=== PATIENT | male | born 1965 | race American Indian/Alaskan Native ===

== ENCOUNTER 2017-02-02 12:11 | Inpatient (IN) | payer OTHER ==
[2017-02-02 12:22] VITALS: BMI 33.9
[2017-02-02] MEDS ORDERED: SODIUM CHLORIDE 1,000 ML IV STA (13:50)
--- NOTE | 2017-02-02 13:52 | PDOC ---
History of Present Illness - General Chief Complaint: Vomiting Blood Stated Complaint: VOMITING BLOOD Time Seen by Provider: 02/02/17 13:50 History Source: Patient - History of Present Illness Timing/Duration: reports: intermittent Past History - Past Medical History Allergies/Adverse Reactions: Allergies Allergy/AdvReac Type Severity Reaction Status Date / Time No Known Allergies Allergy Verified 02/02/17 12:23 Home Medications: Ambulatory Orders Folic Acid - 1 mg PO DAILY #0 tablet 12/19/12 Multivitamins [Multivit ([facility] Formulary)] 1 udtab PO DAILY #0 tab 12/19/12 Famotidine [Pepcid -] 40 mg PO DAILY 09/16/14 Tamsulosin HCl 0.4 mg PO DAILY 11/24/15 Amlodipine Besylate [Norvasc -] 10 mg PO DAILY #30 tablet 10/25/16 Carvedilol [Coreg -] 25 mg PO BID #60 tablet 10/25/16 Anemia: No Asthma: No Cancer: No Cardiac Disorders: Yes (afib, cardiac stent 2009) CVA: No COPD: No CHF: No Dementia: No Diabetes: Yes GI Disorders: No Disorders: No HTN: Yes Hypercholesterolemia: Yes Liver Disease: Yes Suicide Attempt (Hx): No Seizures: No Thyroid Disease: No - Surgical History Abdominal Surgery: No Appendectomy: No Cardiac Surgery: Yes (stent) Cholecystectomy: No Lung Surgery: No Neurologic Surgery: No Orthopedic Surgery: No - Psycho/Social/Smoking Cessation Hx Anxiety: No Suicidal Ideation: No Smoking Status: Yes Smoking History: Never smoked Have you smoked in the past 12 months: No Number of Cigarettes Smoked Daily: 0 If you are a former smoker, when did you quit?: 2004 Cigars Per Day: 0 Information on smoking cessation initiated: No Hx Alcohol Use: Yes (DAILY WHISKEY) Drug/Substance Use Hx: No Substance Use Type: None Hx Substance Use Treatment: No Review of Systems - Review of Systems Constitutional: No: Chills, Fever Respiratory: No: Shortness of Breath Cardiac (ROS): No: Chest Pain ABD/GI: Yes: Nausea, Vomiting, Abdominal cramping. No: Blood Streaked Bowels, Constipated, Diarrhea, Rectal Bleeding, Tarry Stools : No: Dysuria, Hematuria *Physical Exam - Vital Signs Last Vital Signs Temp Pulse Resp BP Pulse Ox 98 F 116 H 18 165/94 98 02/02/17 12:19 02/02/17 12:19 02/02/17 12:19 02/02/17 12:19 02/02/17 12:19 - Physical Exam General Appearance: Yes: Appropriately Dressed HEENT: positive: Normal Voice Neck: positive: Supple Respiratory/Chest: positive: Lungs Clear, Normal Breath Sounds. negative: Respiratory Distress Cardiovascular: positive: S1, S2, Tachycardia Gastrointestinal/Abdominal: positive: Normal Bowel Sounds, Tender (mild ttp diffusely), Soft. negative: Distended, Guarding, Rebound Extremity: positive: Normal Inspection Integumentary: positive: Dry, Warm Neurologic: positive: Fully Oriented, Alert, Other (+hand tremors) ED Treatment Course - LABORATORY CBC & Chemistry Diagram: 02/02/17 13:50 02/02/17 13:50 Medical Decision Making - Medical Decision Making 02/02/17 13:52 51 yo M, h/o ETOH abuse, ?alcoholic hepatitis, HTN, HLD, CAD, DM, here w/ hematemesis. Pt reports that since yesterday has had several e/o n/v, usually triggered after po intake, w/ "small amount" of bright red blood and at times "dark blood" in vomitus. Also reporting some vague abd pain. No change in BM, melena, hematochezia, f/c. Denies h/o similar episode. Not on blood thinners. Pt patient states he had an EGD last year which was unremarkable. See exam Hematemesis ?Varices Has elevated LFTs during last admission, likely due to ETOH abuse Tachy in ED Placed on monitor w/ labs and IVF in progress -GI c/s pending -anticipate admission Tachycardia Possibly 2/2 ETOH withdrawal, last drink yesterday -valium -IVF -reassess 02/02/17 16:21 Vitals improved but remain mildly tachy on monitor, rpt dose of valium in progress, Hypok repleted. H/H stable. LFTs worse than previous admission. Will contact hospitalist for admission. Will m/l need GI to scope to r/o varices or ulcers. Consult placed 02/02/17 17:07 Dr Leslie in ED, recommending protonix. Pt admitted *DC/Admit/Observation/Transfer Diagnosis at time of Disposition: Alcohol dependence with uncomplicated withdrawal Hematemesis Qualifiers: Nausea presence: with nausea Qualified Code(s): K92.0 - Hematemesis - Discharge Dispostion Condition at time of disposition: Fair Admit: Yes
[2017-02-02] MEDS ORDERED: diazePAM CARPU-JECT 10 MG/2 ML DISP.SYRIN IVPUSH ONE ×2 (14:01→15:53)
[2017-02-02] MEDS ORDERED: FOLIC ACID INJECTION - 1 MG, THIAMINE HCL 100 MG, MULTIVIT INJECTION ADULT 10 ML in SOD... IVPB ONE (14:02)
[2017-02-02 14:16] LABS: EOSINOPHIL 0.1 % (0-4.5); MCH 31.8 pg (25.7-33.7); MCHC 34.8 g/dl (32.0-35.9); MEAN CELL VOLUME 91.5 fl (80-96); MEAN PLT VOLUME 7.7 fl (7.5-11.1); NEUTROPHILS 71.8 % (42.8-82.8); PLATELET COUNT 148 K/MM3 (134-434); RDW 15.9 % (11.9-15.9); WHITE BLOOD COUNT 6.6 K/mm3 (4.0-10.0)
[2017-02-02] MEDS ORDERED: diazePAM CARPU-JECT 10 MG/2 ML DISP.SYRIN ONE ×2 (14:22→16:05)
[2017-02-02 14:33] LABS: INR 1.12 (0.82-1.09); PROTHROMBIN TIME (PATIENT) 12.3 SEC (9.98-11.88)
[2017-02-02 14:34] LABS: ALBUMIN 4.5 g/dl (3.4-5.0); ANION GAP 19 (8-16); BILIRUBIN,TOTAL 2.1 mg/dL (0.2-1.0); CALCIUM 9.4 mg/dL (8.5-10.1); CO2 27 mmol/L (21-32); GLUCOSE,RANDOM 239 mg/dL (74-106); SGPT/ALT 100 U/L (12-78); TOT PROT 8.9 g/dl (6.4-8.2)
[2017-02-02 14:35] LABS: ALK PHOS 83 U/L (45-117)
[2017-02-02 14:40] LABS: SGOT/AST 217 U/L (15-37)
[2017-02-02] MEDS ORDERED: POTASSIUM CHLORIDE TABS 20 MEQ TABLET.ER (FP) PO ONE ×2 (15:40→16:06)
--- NOTE | 2017-02-02 16:21 | PDOC ---
[id number] 195/101 98 02/02/17 14:00 02/02/17 14:00 02/02/17 14:00 02/02/17 14:00 02/02/17 14:00 ED Treatment Course - LABORATORY CBC & Chemistry Diagram: 02/05/17 05:35 02/05/17 18:30 - ADDITIONAL ORDERS Additional order review: Laboratory Results 02/02/17 02/02/17 02/02/17 13:50 13:50 13:50 INR 1.12 Sodium 135 L Potassium 3.0 L D Chloride 89 L D Carbon Dioxide 27 Anion Gap 19 H BUN 10 D Creatinine 1.0 Creat Clearance w eGFR > 60 Random Glucose 239 H D Calcium 9.4 Total Bilirubin 2.1 H D AST 217 H D ALT 100 H Alkaline Phosphatase 83 D Total Protein 8.9 H Albumin 4.5 Blood Type Cancelled Antibody Screen Cancelled Spec Expiration Date Cancelled 02/02/17 13:50 RBC 5.26 D MCV 91.5 MCHC 34.8 RDW 15.9 MPV 7.7 Neutrophils % 71.8 D Lymphocytes % 19.0 D Monocytes % 8.1 Eosinophils % 0.1 D Basophils % 1.0 - Medications Given in the ED: ED Medications Discontinued Medications Generic Name Dose Route Start Last Admin Trade Name Freq PRN Reason Stop Dose Admin Diazepam 10 mg 02/02/17 14:01 02/02/17 14:28 Valium Injection - IVPUSH 02/02/17 14:02 10 mg ONCE ONE Administration Diazepam 10 mg 02/02/17 15:53 02/02/17 16:14 Valium Injection - IVPUSH 02/02/17 15:54 10 mg ONCE ONE Administration Sodium Chloride 1,000 mls @ 1,000 mls/hr 02/02/17 13:50 02/02/17 14:10 Normal Saline - IV 02/02/17 14:49 1,000 mls/hr ASDIR STA Administration Potassium Chloride 40 meq 02/02/17 15:40 02/02/17 16:12 K-Dur - PO 02/02/17 15:41 40 meq ONCE ONE Administration Medical Decision Making - Medical Decision Making 02/02/17 16:18 Patient seen and evaluated with the nurse practitioner. I agree with the overall evaluation, assessment, and management with the following summary of visit: 51-year-old male with history of alcoholism presents with hematemesis, tachycardia, tremors. Admitted with stable hemoglobin, but early withdrawal *DC/Admit/Observation/Transfer Diagnosis at time of Disposition: Alcohol dependence with uncomplicated withdrawal Hematemesis Qualifiers: Nausea presence: with nausea Qualified Code(s): K92.0 - Hematemesis - Discharge Dispostion Disposition: HOME Condition at time of disposition: Stable - Prescriptions
[2017-02-02] MEDS ORDERED: PANTOPRAZOLE SODIUM 40 MG in SODIUM CHLORIDE 100 ML IVPB ONE (17:07)
[2017-02-02] MEDS ORDERED: PANTOPRAZOLE SODIUM 100 ML IVPB ONE (17:30)
[2017-02-02] MEDS ORDERED: ONDANSETRON 4 MG/2 ML VIAL IVPB PRN (18:53)
[2017-02-02] MEDS ORDERED: ACETAMINOPHEN 325 MG TABLET (FP) PO PRN (18:55)
[2017-02-02] MEDS ORDERED: SODIUM CHLORIDE 1,000 ML IV SCH ×2 (19:00→19:30)
--- NOTE | 2017-02-02 19:18 | HP ---
CHIEF COMPLAINT: "im nauseous" PCP: Dr Urias HISTORY OF PRESENT ILLNESS: This is a 51 yo M with PMH of EtOh abuse, hematemesis and melena 1 yr ago, CAD s /p stents 7 yrs ago (not on a/c), HTN (coreg sometimes), HLD, IDDM ( noncomplliant), who presents with EtOH withdrawal and hematemesis. patient has been drinking for 1 mo straight 2 8 0z glasses of hard liquor per day. he has not eaten anything in the past week. He has been vomiting for the past 2 days, last episode of vomiting 12 hr ago with some hematemesis and last drink 12 hr ago. He has had a similar episode 1 mo ago with melena, at which time he was hospitalized on librium and with BEVERLY due to dehydration. He is noncompliant with insulin and other home meds. He has a colonoscopy and endoscopy [address] Ahn. He states he has a baseline sob and dry cough that has not worsened. The longest he has ever been sober was x 1 mo and he has been drinking heavily for 20 yrs. He is not interested in rehab. He denies ever having a seizure of hallucinations. He used to smoke heavily for 20 yrs but quit 13 yrs ago. He reports mild RUQ abd pain. He has been constipated for 1 week. He denies chest pain, sob, h/a or loc. he is anxious, diaphoretic and nauseous. 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 Smoking: past Alcohol: abuse Drugs: denies Family History: HTN, DM Allergies No Known Allergies Allergy (Verified 02/02/17 12:23) HOME MEDICATIONS: Home Medications Medication Instructions Recorded Folic Acid - 1 mg PO DAILY #0 tablet 12/19/12 Multivitamins [Multivit ([facility] 1 udtab PO DAILY #0 tab 12/19/12 Formulary)] Famotidine [Pepcid -] 40 mg PO DAILY 09/16/14 Tamsulosin HCl 0.4 mg PO DAILY 11/24/15 Amlodipine Besylate [Norvasc -] 10 mg PO DAILY #30 tablet 10/25/16 Carvedilol [Coreg -] 25 mg PO BID #60 tablet 10/25/16 REVIEW OF SYSTEMS CONSTITUTIONAL: Absent: fever, chills, weight change HEENT: Absent: rhinorrhea, nasal congestion, throat pain, CARDIOVASCULAR: Absent: chest pain, syncope, palpitations RESPIRATORY: Absent: orthopnea, wheezing, stridor GASTROINTESTINAL: Absent: diarrhea, melena, hematochezia GENITOURINARY: Absent: dysuria MUSCULOSKELETAL: Absent: myalgia, arthralgia SKIN: Absent: rash, itching, pallor HEMATOLOGIC/IMMUNOLOGIC: Absent: easy bleeding, easy bruising ENDOCRINE: Absent: unexplained weight gain, unexplained weight loss NEUROLOGIC: Absent: headache, focal weakness or paresthesias, PSYCHIATRIC: Absent: anxiety, depression, suicidal or homicidal ideation, hallucinations. PHYSICAL EXAMINATION Vital Signs - 24 hr 02/02/17 02/02/17 02/02/17 12:19 14:00 16:48 Temperature 98 F 98.6 F 99.6 F Pulse Rate 116 H Pulse Rate [ 115 H 111 H Radial] Respiratory 18 21 18 Rate Blood Pressure 165/94 Blood Pressure 195/101 175/106 [Left Arm] O2 Sat by Pulse 98 98 98 Oximetry (%) GENERAL: Awake, alert, and fully oriented, uncomfortable HEAD: Normal with no signs of trauma. EYES: Pupils equal, round and reactive to light, extraocular movements intact, sclera anicteric, conjunctiva clear. No lid lag. EARS, NOSE, THROAT: Moist mucous membranes. NECK: supple without JVD LUNGS: Breath sounds equal, clear to auscultation bilaterally HEART: tachy rate and regular rhythm, normal S1 and S2 ABDOMEN: soft, mildy distended + hepatomegaly, + bowel sounds, mildly tender RUQ. MARVIN: no lesions, light brown soft stool, normal prostate MUSCULOSKELETAL: No CVA tenderness. UPPER EXTREMITIES: 2+ pulses, warm, well-perfused. No peripheral edema. LOWER EXTREMITIES: 2+ pulses, warm, well-perfused. No calf tenderness. No peripheral edema. NEUROLOGICAL: Cranial nerves II-XII grossly intact. slurred speech PSYCHIATRIC: Cooperative. Good eye contact. Appropriate mood and affect. SKIN: Warm, dry Laboratory Results - last 24 hr 02/02/17 02/02/17 02/02/17 13:50 13:50 13:50 WBC 6.6 RBC 5.26 D Hgb 16.7 D Hct 48.1 D MCV 91.5 MCHC 34.8 RDW 15.9 Plt Count 148 D MPV 7.7 Neutrophils % 71.8 D Lymphocytes % 19.0 D Monocytes % 8.1 Eosinophils % 0.1 D Basophils % 1.0 INR 1.12 Sodium 135 L Potassium 3.0 L D Chloride 89 L D Carbon Dioxide 27 Anion Gap 19 H BUN 10 D Creatinine 1.0 Creat Clearance w eGFR > 60 Random Glucose 239 H D Calcium 9.4 Total Bilirubin 2.1 H D AST 217 H D ALT 100 H Alkaline Phosphatase 83 D Total Protein 8.9 H Albumin 4.5 Blood Type Antibody Screen Spec Expiration Date 02/02/17 13:50 WBC RBC Hgb Hct MCV MCHC RDW Plt Count MPV Neutrophils % Lymphocytes % Monocytes % Eosinophils % Basophils % INR Sodium Potassium Chloride Carbon Dioxide Anion Gap BUN Creatinine Creat Clearance w eGFR Random Glucose Calcium Total Bilirubin AST ALT Alkaline Phosphatase Total Protein Albumin Blood Type Cancelled Antibody Screen Cancelled Spec Expiration Date Cancelled ASSESSMENT/PLAN: Acute EtOh withdrawal -uninterested in rehab -CIWA protocol with IV Valium -Thiamina, folate -multivitamin -zofran prn Hematemesis -[place] vs gastritis -PPI drip -NPO -stool occult blood -Gi consult for scope IDDM -BGM TIDAC -Novolog sliding scale -a1c HTN -iv hydralazine 10 q 6 h [place] HLD -lipid panel prerenal azotemia -IVF @ 100 FeN NS@100 replete hypokalemia, hyponatremia, hypochloremia NPO SCD, PPI Dispo: admit med romie Problem List - Problem (1) Alcohol dependence with uncomplicated withdrawal Code(s): F10.230 - ALCOHOL DEPENDENCE WITH WITHDRAWAL, UNCOMPLICATED (2) Hematemesis Code(s): K92.0 - HEMATEMESIS Qualifiers: Nausea presence: with nausea Qualified Code(s): K92.0 - Hematemesis (3) Alcohol abuse Code(s): F10.10 - ALCOHOL ABUSE, UNCOMPLICATED (4) CAD (coronary artery disease) Code(s): I25.10 - ATHSCL HEART DISEASE OF [place] CORONARY ARTERY W/O ANG PCTRS Qualifiers: Coronary Disease-Associated Artery/Lesion type: [place] artery [place] vs. transplanted heart: [place] heart Associated angina: without angina Qualified Code(s): I25.10 - Atherosclerotic heart disease of [place] coronary artery without angina pectoris (5) Chronic alcoholism Code(s): F10.20 - ALCOHOL DEPENDENCE, UNCOMPLICATED Qualifiers: Substance use status: with intoxication Complication of substance- induced condition: uncomplicated Qualified Code(s): F10.220 - Alcohol dependence with intoxication, uncomplicated (6) HTN (hypertension) Code(s): I10 - ESSENTIAL (PRIMARY) HYPERTENSION (7) Vomiting Code(s): R11.10 - VOMITING, UNSPECIFIED Qualifiers: Nausea presence: with nausea (8) Hematochezia Code(s): K92.1 - [place] (9) Diabetes Code(s): E11.9 - TYPE 2 DIABETES MELLITUS WITHOUT COMPLICATIONS (10) Hyperlipidemia Code(s): E78.5 - HYPERLIPIDEMIA, UNSPECIFIED Visit type - Emergency Visit Emergency Visit: Yes Care time: The patient presented to the Emergency Department on the above date and was hospitalized for further evaluation of their emergent condition. - New Patient This patient is new to me today: Yes Date on this admission: 02/02/17 - Critical Care Critical Care patient: No
--- NOTE | 2017-02-02 19:37 | PN ---
Teaching Attending Note Name of Resident: Cece Urena ATTENDING PHYSICIAN STATEMENT I saw and evaluated the patient. I reviewed the resident's note and discussed the case with the resident. I agree with the resident's findings and plan as documented. SUBJECTIVE: OBJECTIVE: Vital Signs Period Temp Pulse Resp BP Sys/Mccoy Pulse Ox Last 24 Hr 98 F-99.6 F 111-116 18-21 165-195/94-106 98-98 HEART: S1 S2, tachycardic LUNGS: Clear ABDOMEN: Obese, soft, non-tender, non-distended, normal BS EXTREMITIES: No edema NEUROLOGICAL: Alert, oriented, mildly tremulous ASSESSMENT AND PLAN:
[2017-02-02] MEDS ORDERED: hydrALAZINE HCL 20 MG/ML VIAL ONE (20:20)
[2017-02-02] MEDS ORDERED: PANTOPRAZOLE SODIUM 40 MG VIAL ONE (20:20)
[2017-02-02] MEDS: PANTOPRAZOLE SODIUM 80 MG in SODIUM CHLORIDE 100 ML IVPB SCH (20:46)
[2017-02-02] MEDS: hydrALAZINE HCL 20 MG/ML VIAL IVPUSH SCH (20:46)
--- NOTE | 2017-02-02 21:25 | PDOC ---
*Physical Exam - Vital Signs Last Vital Signs Temp Pulse Resp BP Pulse Ox 99.6 F 120 H 18 190/119 100 02/02/17 16:48 02/02/17 20:47 02/02/17 20:47 02/02/17 20:47 02/02/17 20:47 ED Treatment Course - LABORATORY CBC & Chemistry Diagram: 02/02/17 13:50 02/02/17 13:50 - ADDITIONAL ORDERS Additional order review: Laboratory Results 02/02/17 02/02/17 02/02/17 13:50 13:50 13:50 INR 1.12 Sodium 135 L Potassium 3.0 L D Chloride 89 L D Carbon Dioxide 27 Anion Gap 19 H BUN 10 D Creatinine 1.0 Creat Clearance w eGFR > 60 Random Glucose 239 H D Calcium 9.4 Total Bilirubin 2.1 H D AST 217 H D ALT 100 H Alkaline Phosphatase 83 D Total Protein 8.9 H Albumin 4.5 Blood Type Cancelled Antibody Screen Cancelled Spec Expiration Date Cancelled 02/02/17 13:50 RBC 5.26 D MCV 91.5 MCHC 34.8 RDW 15.9 MPV 7.7 Neutrophils % 71.8 D Lymphocytes % 19.0 D Monocytes % 8.1 Eosinophils % 0.1 D Basophils % 1.0 - Medications Given in the ED: ED Medications Discontinued Medications Generic Name Dose Route Start Last Admin Trade Name Janel PRN Reason Stop Dose Admin Diazepam 10 mg 02/02/17 14:01 02/02/17 14:28 Valium Injection - IVPUSH 02/02/17 14:02 10 mg ONCE ONE Administration Diazepam 10 mg 02/02/17 15:53 02/02/17 16:14 Valium Injection - IVPUSH 02/02/17 15:54 10 mg ONCE ONE Administration Sodium Chloride 1,000 mls @ 1,000 mls/hr 02/02/17 13:50 02/02/17 14:10 Normal Saline - IV 02/02/17 14:49 1,000 mls/hr ASDIR STA Administration Pantoprazole Sodium 40 mg/ 100 mls @ 200 mls/hr 02/02/17 17:07 02/02/17 17:35 Sodium Chloride IVPB 02/02/17 17:36 200 mls/hr ONCE ONE Administration Sodium Chloride 1,000 mls @ 100 mls/hr 02/02/17 19:00 02/02/17 20:47 Normal Saline - IV Not Given ASDIR SIERRA Potassium Chloride 40 meq 02/02/17 15:40 02/02/17 16:12 K-Dur - PO 02/02/17 15:41 40 meq ONCE ONE Administration *DC/Admit/Observation/Transfer Diagnosis at time of Disposition: Alcohol dependence with uncomplicated withdrawal Hematemesis Qualifiers: Nausea presence: with nausea Qualified Code(s): K92.0 - Hematemesis - Discharge Dispostion Condition at time of disposition: Fair Admit: Yes
[2017-02-02] MEDS: diazePAM CARPU-JECT 10 MG/2 ML DISP.SYRIN IVPUSH SCH (21:30)
[2017-02-02] MEDS: INSULIN SLIDING SCALE (NOVOLOG) 1 VIAL SQ SCH (22:04)
[2017-02-02 23:21] LABS: TROPONIN I < 0.02 ng/ml (0.00-0.05)
[2017-02-03] MEDS: diazePAM CARPU-JECT 10 MG/2 ML DISP.SYRIN IVPUSH SCH ×3 (00:21→08:34)
[2017-02-03] MEDS: hydrALAZINE HCL 20 MG/ML VIAL IVPUSH SCH ×2 (03:06→08:11)
[2017-02-03] MEDS ORDERED: diazePAM CARPU-JECT 10 MG/2 ML DISP.SYRIN IVPUSH SCH (04:00)
[2017-02-03] MEDS: PANTOPRAZOLE SODIUM 80 MG in SODIUM CHLORIDE 100 ML IVPB SCH ×2 (05:52→16:56)
[2017-02-03] MEDS: INSULIN SLIDING SCALE (NOVOLOG) 1 VIAL SQ SCH ×3 (06:00→16:56)
[2017-02-03 06:14] LABS: MCH 31.9 pg (25.7-33.7); MCHC 34.8 g/dl (32.0-35.9); MEAN CELL VOLUME 91.6 fl (80-96); MEAN PLT VOLUME 7.6 fl (7.5-11.1); PLATELET COUNT 116 K/MM3 (134-434); RDW 15.7 % (11.9-15.9); WHITE BLOOD COUNT 6.2 K/mm3 (4.0-10.0)
[2017-02-03 06:36] LABS: ALBUMIN 3.6 g/dl (3.4-5.0); AMYLASE 73 U/L (25-115); ANION GAP 15 (8-16); CALCIUM 8.3 mg/dL (8.5-10.1); CO2 28 mmol/L (21-32); CREATININE 0.8 mg/dL (0.7-1.3); GLUCOSE,RANDOM 134 mg/dL (74-106); SGOT/AST 153 U/L (15-37); SGPT/ALT 80 U/L (12-78)
[2017-02-03 06:39] LABS: INR 1.2 (0.82-1.09); PROTHROMBIN TIME (PATIENT) 13.3 SEC (9.98-11.88)
[2017-02-03 06:42] LABS: ALK PHOS 66 U/L (45-117); BILIRUBIN,TOTAL 1.9 mg/dL (0.2-1.0); TOT PROT 7.1 g/dl (6.4-8.2)
[2017-02-03 06:52] LABS: PHOSPHOROUS 0.6 mg/dL (2.5-4.9)
[2017-02-03 07:59] LABS: CHOLESTEROL 314 mg/dL (50-200); LDL CHOLESTEROL (ONLY SJRH) 213 mg/dL (5-100)
[2017-02-03] MEDS ORDERED: POTASSIUM PHOSPHATE 15 MM in SODIUM CHLORIDE 250 ML IVPB ONE ×2 (08:30→15:00)
[2017-02-03] MEDS ORDERED: chlordiazePOXIDE HCL 25 MG CAPSULE PO PRN (09:34)
--- NOTE | 2017-02-03 09:47 | PN ---
Progress Note (short form) - Note Progress Note: Subjective: has no abd pain , no hematemesis since Thursday . has no SOB or CP . he is interested in detox Objective: Vital Signs: Last Vital Signs Temp Pulse Resp BP Pulse Ox 98.8 F 108 H 20 143/98 96 02/03/17 05:58 02/03/17 05:58 02/03/17 05:58 02/03/17 05:58 02/03/17 00:23 Physical Exam: NAD , AAOX3 HEENT: NC, AT, no facial droop , no nystagmus , MMM Lungs : CTAB ext : no edema , no tremor on hands Abd ; soft, NT< ND , NL BS , no Hepatomegaly gait : steady . Labs: Laboratory Results - last 24 hr 02/02/17 02/02/17 02/02/17 13:50 13:50 13:50 WBC 6.6 RBC 5.26 D Hgb 16.7 D Hct 48.1 D MCV 91.5 MCHC 34.8 RDW 15.9 Plt Count 148 D MPV 7.7 Neutrophils % 71.8 D Lymphocytes % 19.0 D Monocytes % 8.1 Eosinophils % 0.1 D Basophils % 1.0 INR 1.12 Sodium 135 L Potassium 3.0 L D Chloride 89 L D Carbon Dioxide 27 Anion Gap 19 H BUN 10 D Creatinine 1.0 Creat Clearance w eGFR > 60 POC Glucometer Random Glucose 239 H D Hemoglobin A1c % Calcium 9.4 Phosphorus Total Bilirubin 2.1 H D AST 217 H D ALT 100 H Alkaline Phosphatase 83 D Creatine Kinase Creatine Kinase Index CK-MB (CK-2) CK-MB (CK-2) Rel Index Troponin I Total Protein 8.9 H Albumin 4.5 Triglycerides Cholesterol Total LDL Cholesterol HDL Cholesterol Total Amylase Stool Occult Blood Blood Type Antibody Screen Spec Expiration Date 02/02/17 02/02/17 02/02/17 13:50 20:10 21:40 WBC RBC Hgb Hct MCV MCHC RDW Plt Count MPV Neutrophils % Lymphocytes % Monocytes % Eosinophils % Basophils % INR Sodium Potassium Chloride Carbon Dioxide Anion Gap BUN Creatinine Creat Clearance w eGFR POC Glucometer Random Glucose Hemoglobin A1c % Calcium Phosphorus Total Bilirubin AST ALT Alkaline Phosphatase Creatine Kinase 200 D Creatine Kinase Index Y CK-MB (CK-2) < 1.000 CK-MB (CK-2) Rel Index Troponin I < 0.02 Total Protein Albumin Triglycerides Cholesterol Total LDL Cholesterol HDL Cholesterol Total Amylase Stool Occult Blood Negative Blood Type Cancelled Antibody Screen Cancelled Spec Expiration Date Cancelled 02/02/17 02/03/17 02/03/17 21:40 05:44 05:44 WBC 6.2 RBC 4.76 Hgb 15.2 Hct 43.5 MCV 91.6 MCHC 34.8 RDW 15.7 Plt Count 116 L D MPV 7.6 Neutrophils % Lymphocytes % Monocytes % Eosinophils % Basophils % INR 1.20 H Sodium Potassium Chloride Carbon Dioxide Anion Gap BUN Creatinine Creat Clearance w eGFR POC Glucometer Random Glucose Hemoglobin A1c % Calcium Phosphorus Total Bilirubin AST ALT Alkaline Phosphatase Creatine Kinase Creatine Kinase Index CK-MB (CK-2) CK-MB (CK-2) Rel Index Cancelled Troponin I Total Protein Albumin Triglycerides Cholesterol Total LDL Cholesterol HDL Cholesterol Total Amylase Stool Occult Blood Blood Type Antibody Screen Spec Expiration Date 02/03/17 02/03/17 02/03/17 05:44 05:44 05:44 WBC RBC Hgb Hct MCV MCHC RDW Plt Count MPV Neutrophils % Lymphocytes % Monocytes % Eosinophils % Basophils % INR Sodium 143 Potassium 2.8 L* Chloride 100 D Carbon Dioxide 28 Anion Gap 15 BUN 4 L D Creatinine 0.8 Creat Clearance w eGFR > 60 POC Glucometer Random Glucose 134 H D Hemoglobin A1c % 6.3 H Calcium 8.3 L Phosphorus 0.6 L* Total Bilirubin 1.9 H AST 153 H D ALT 80 H Alkaline Phosphatase 66 D Creatine Kinase Creatine Kinase Index CK-MB (CK-2) CK-MB (CK-2) Rel Index Troponin I Total Protein 7.1 D Albumin 3.6 Triglycerides 97 Cancelled Cholesterol 314 H Cancelled Total LDL Cholesterol 213 H Cancelled HDL Cholesterol 71 H Cancelled Total Amylase 73 Stool Occult Blood Blood Type Antibody Screen Spec Expiration Date 02/03/17 05:51 WBC RBC Hgb Hct MCV MCHC RDW Plt Count MPV Neutrophils % Lymphocytes % Monocytes % Eosinophils % Basophils % INR Sodium Potassium Chloride Carbon Dioxide Anion Gap BUN Creatinine Creat Clearance w eGFR POC Glucometer 130 Random Glucose Hemoglobin A1c % Calcium Phosphorus Total Bilirubin AST ALT Alkaline Phosphatase Creatine Kinase Creatine Kinase Index CK-MB (CK-2) CK-MB (CK-2) Rel Index Troponin I Total Protein Albumin Triglycerides Cholesterol Total LDL Cholesterol HDL Cholesterol Total Amylase Stool Occult Blood Blood Type Antibody Screen Spec Expiration Date Assessment/Plan: 51 y/o man with h/o ETOH abuse , HTN, CAD s/p stenting , Diabetes, who presented intoxicated and with hematemesis 1- ETOH intoxication: possible withdrawal. No signs of Wernicke's encephalopathy . - he is interested in detox. will start Librium protocol - cont thiamine , add folic acid - IVF 2- Upper GI bleed . likely for gastritis VS Delma Lou tear in setting of vomiting HB is stable and bleed has not recurred since Thursday - start full liquid diet - monitor H&H . - declined rectal exam for me .but in ER OB was neg - cont PPI gtt , might change to IV pPI in AM if no more bleed - had colonoscopy and EGD 1 yr ago, no report in our system . - GI consult placed 3-h/o HTN: expect it to be elevated with withdrawal - dc IV hydralazine - resume home meds. 4- DM : he takes Lantus 8-10 units at home ., none for a week SSI while on liquids 5- hypokalemia and hypophosphatemia : replete and repeat 6- Transaminitis : due to alcoholic hepatitis . - will check PT to calculate discriminant function - repeat in am 7- hyperlipidemia . LDL > goal . can't give statins now due to transaminitis 8- dispo : HLOC Home meds need to be confirmed and updated please Visit type - Emergency Visit Emergency Visit: Yes ED Registration Date: 02/02/17 Care time: The patient presented to the Emergency Department on the above date and was hospitalized for further evaluation of their emergent condition. - New Patient This patient is new to me today: No - Critical Care Critical Care patient: No
[2017-02-03] MEDS: MULTIVIT INJ. ADULT COMBO WITH VIT K 1 COMBO 10 ML VIAL IV SCH (10:00)
[2017-02-03] MEDS: chlordiazePOXIDE HCL 25 MG CAPSULE PO SCH ×3 (11:11→23:06)
[2017-02-03] MEDS: amLODIPine BESYLATE 10 MG TABLET (FP) PO SCH (11:12)
[2017-02-03] MEDS: CARVEDILOL 25 MG TABLET (FP) PO SCH ×2 (11:12→23:06)
[2017-02-03] MEDS: FOLIC ACID 1 MG TABLET (FP) PO SCH (11:12)
[2017-02-03] MEDS: THIAMINE HCL 200 MG/2 ML VIAL IVPB SCH (11:12)
[2017-02-03 11:55] LABS: MAGNESIUM 1.4 mg/dL (1.8-2.4)
[2017-02-03 12:03] LABS: PHOSPHOROUS 0.7 mg/dL (2.5-4.9)
[2017-02-03 12:16] LABS: INR 1.23 (0.82-1.09); PROTHROMBIN TIME (PATIENT) 13.6 SEC (9.98-11.88)
--- NOTE | 2017-02-03 12:36 | EKG ---
Test Reason : Blood Pressure : / mmHG Vent. 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
[2017-02-03] MEDS ORDERED: MAGNESIUM SULF 50% (8.12 MEQ/2 ML-1 GM VIAL) IVPB ONE (13:59)
--- NOTE | 2017-02-03 14:17 | CON.GI ---
Consult Consult Specialty:: Gastroenterology Referred by:: JUAN CARLOS Quinteros Reason for Consultation:: Hematemesis - History of Present Illness Chief Complaint: Hematemesis on 02/01 x multiple episodes History of Present Illness: 51M with h/o alcoholism has been drinking about a pint of Scotch daily fro the past month. He has not eaten in about 1 week but continued to drink alcohol until this vomiting began on 02/01. He vomited coffee grounds and bright red blood on multiple occasions until about 1AM on 02/02. No bleeding since then. NO BMs today. Stools was black yesterday. No BM today. He underwent EGD and colonoscopy in the office with Dr Martinez about a years ago and tells me that there were no findings. I asked whether he wanted for Dr Martinez to consult but given the winter weather he asks that I remain and care for him. He admits to getting tremulous when he abstains from alcohol. His PMD is Dr. Urias. 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 No: CVA Cardio/Vascular: Yes: CAD (2 stents placed [facility] 2013), HTN, Hyperlipdemia. No: AFIB, CHF Gastrointestinal: Yes: GERD Hepatobiliary: Yes: Other (Alcoholic liver disease) Renal/: Yes: Renal Inusuff, BPH Psych: Yes: Addictions (ALCOHOL) Endocrine: Yes: Diabetes Mellitus - Alcohol/Substance Use Hx Alcohol Use: Yes (pint of Scotch daily) - Smoking History Smoking history: Former smoker Have you smoked in the past 12 months: No Aproximately how many cigarettes per day: 0 If you are a former smoker, when did you quit?: 2004 - Social History Usual Living Arrangement: Other () ADL: Independent Occupation: [employer] of : Other ([place]) Came to [place] (year[place] age 18 History of Recent Travel: No Home Medications - Allergies Allergies/Adverse Reactions: Allergies Allergy/AdvReac Type Severity Reaction Status Date / Time No Known Allergies Allergy Verified 02/02/17 12:23 - Home Medications Home Medications: Ambulatory Orders Folic Acid - 1 mg PO DAILY #0 tablet 12/19/12 Multivitamins [Multivit ([facility] Formulary)] 1 udtab PO DAILY #0 tab 12/19/12 Famotidine [Pepcid -] 40 mg PO DAILY 09/16/14 Tamsulosin HCl 0.4 mg PO DAILY 11/24/15 Amlodipine Besylate [Norvasc -] 10 mg PO DAILY #30 tablet 10/25/16 Carvedilol [Coreg -] 25 mg PO BID #60 tablet 10/25/16 Family Disease History - Family Disease History Family Disease History: Heart Disease: Father ( [place] age 88), Other: Mother ( young of allergic reaction) Review of Systems - Review of Systems Constitutional: reports: Loss of Appetite, Weakness Eyes: reports: No Symptoms HENT: reports: No Symptoms Neck: reports: No Symptoms Cardiovascular: reports: No Symptoms Respiratory: reports: No Symptoms Gastrointestinal: reports: Vomiting Blood Genitourinary: reports: No Symptoms Neurological: reports: No Symptoms Endocrine: reports: No Symptoms Psychiatric: reports: Anxiety Physical Exam-GI Vital Signs: Vital Signs Temperature 98.8 F 02/03/17 05:58 Pulse Rate 108 H 02/03/17 05:58 Respiratory Rate 20 02/03/17 05:58 Blood Pressure 143/98 02/03/17 05:58 O2 Sat by Pulse Oximetry (%) 96 02/03/17 00:23 CBC,CMP WBC 6.2 K/mm3 (4.0-10.0) 02/03/17 05:44 RBC 4.76 M/mm3 (4.00-5.60) 02/03/17 05:44 Hgb 15.2 GM/dL (11.7-16.9) 02/03/17 05:44 Hct 43.5 % (35.4-49) 02/03/17 05:44 MCV 91.6 fl (80-96) 02/03/17 05:44 MCHC 34.8 g/dl (32.0-35.9) 02/03/17 05:44 RDW 15.7 % (11.9-15.9) 02/03/17 05:44 Plt Count 116 K/MM3 (134-434) L D 02/03/17 05:44 MPV 7.6 fl (7.5-11.1) 02/03/17 05:44 Neutrophils % 71.8 % (42.8-82.8) D 02/02/17 13:50 Lymphocytes % 19.0 % (8-40) D 02/02/17 13:50 Monocytes % 8.1 % (3.8-10.2) 02/02/17 13:50 Eosinophils % 0.1 % (0-4.5) D 02/02/17 13:50 Basophils % 1.0 % (0-2.0) 02/02/17 13:50 Sodium 143 mmol/L (136-145) 02/03/17 05:44 Potassium 2.8 mmol/L (3.5-5.1) L* 02/03/17 05:44 Chloride 100 mmol/L (98-107) D 02/03/17 05:44 Carbon Dioxide 28 mmol/L (21-32) 02/03/17 05:44 Anion Gap 15 (8-16) 02/03/17 05:44 BUN 4 mg/dL (7-18) L D 02/03/17 05:44 Creatinine 0.8 mg/dL (0.7-1.3) 02/03/17 05:44 Creat Clearance w eGFR > 60 (>60) 02/03/17 05:44 POC Glucometer 188 UNITS (()) 02/03/17 11:39 Random Glucose 134 mg/dL (74-106) H D 02/03/17 05:44 Hemoglobin A1c % 6.3 % (4.8-6.0) H 02/03/17 05:44 Calcium 8.3 mg/dL (8.5-10.1) L 02/03/17 05:44 Phosphorus 0.7 mg/dL (2.5-4.9) L* 02/03/17 10:25 Magnesium 1.4 mg/dL (1.8-2.4) L 02/03/17 10:25 Total Bilirubin 1.9 mg/dL (0.2-1.0) H 02/03/17 05:44 AST 153 U/L (15-37) H D 02/03/17 05:44 ALT 80 U/L (12-78) H 02/03/17 05:44 Alkaline Phosphatase 66 U/L (45-117) D 02/03/17 05:44 Creatine Kinase 200 IU/L (39-308) D 02/02/17 21:40 Creatine Kinase Index Y 02/02/17 21:40 CK-MB (CK-2) < 1.000 ng/ml (0.5-3.6) 02/02/17 21:40 CK-MB (CK-2) Rel Index Cancelled 02/02/17 21:40 Troponin I < 0.02 ng/ml (0.00-0.05) 02/02/17 21:40 Total Protein 7.1 g/dl (6.4-8.2) D 02/03/17 05:44 Albumin 3.6 g/dl (3.4-5.0) 02/03/17 05:44 Triglycerides 97 mg/dL (35-160) 02/03/17 05:44 Cholesterol 314 mg/dL (50-200) H 02/03/17 05:44 Total LDL Cholesterol 213 mg/dL (5-100) H 02/03/17 05:44 HDL Cholesterol 71 mg/dL (40-60) H 02/03/17 05:44 Total Amylase 73 U/L (25-115) 02/03/17 05:44 Current Medications Generic Name Dose Route Start Last Admin Trade Name Freq PRN Reason Stop Dose Admin Acetaminophen 650 mg 02/02/17 18:55 Tylenol - PO Q4H PRN FEVER OR PAIN Amlodipine Besylate 10 mg 02/03/17 10:00 02/03/17 11:12 Norvasc - PO 10 mg DAILY [facility] Administration Carvedilol 25 mg 02/03/17 10:00 02/03/17 11:12 Coreg - PO 25 mg BID [facility]RA Administration Chlordiazepoxide HCl 25 mg 02/03/17 09:34 Librium - PO 02/06/17 09:33 Q4H PRN WITHDRAWAL(CONT SUBST) Chlordiazepoxide HCl 50 mg 02/03/17 11:00 02/03/17 11:11 Librium - PO 02/04/17 05:01 50 mg [id number] [facility] Administration Chlordiazepoxide HCl 25 mg 02/04/17 11:00 Librium - PO 02/05/17 05:01 [id number] SI[facility] Chlordiazepoxide HCl 15 mg 02/05/17 11:00 Librium - PO 02/06/17 05:01 [id number] SIER[facility] Folic Acid 1 mg 02/03/17 10:00 02/03/17 11:12 Folic Acid - PO 1 mg DAILY [facility] Administration Pantoprazole Sodium 80 mg/ 100 mls @ 10 mls/hr 02/02/17 19:00 02/03/17 05:52 Sodium Chloride IVPB 10 mls/hr Q10H [facility]ER[facility] Administration 8 MG/HR Sodium Chloride 1,000 mls @ 100 mls/hr 02/02/17 19:30 02/02/17 20:46 Normal Saline - IV 100 mls/hr ASDIR [facility] Administration Potassium Phosphate 15 mm/ 255 mls @ 51 mls/hr 02/03/17 15:00 Sodium Chloride IVPB 02/03/17 19:59 ONCE ONE Insulin Aspart 1 vial 02/02/17 19:00 02/03/17 11:41 Novolog Vial Sliding Scale - SQ Not Given TIDAC [facility] Protocol Magnesium Oxide 400 mg 02/04/17 10:00 Mag-Ox - PO DAILY [facility] Multivitamins/Minerals 10 ml 02/03/17 10:00 Infuvite Adult - IV DAILY [facility] Ondansetron HCl 4 mg 02/02/17 18:53 02/03/17 00:21 Zofran Injection IVPB 4 mg Q4H PRN Administration NAUSEA Thiamine HCl 200 mg 02/03/17 10:00 02/03/17 11:12 Vitamin B1 Injection - IVPB 200 mg DAILY [facility] Administration Constitutional: Yes: Anxious Eyes: Yes: Conjunctiva Clear HENT: Yes: Normocephalic Neck: Yes: Supple Cardiovascular: Yes: Regular Rate and Rhythm Respiratory: Yes: CTA Bilaterally ...Auscultate: Yes: Normoactive Bowel Sounds ...Palpate: Yes: Soft, Other (nontender) ...Rectal Exam: Yes: Guaiac Positive, Other (2+ prostate) Edema: No Peripheral Pulses WNL: Yes Neurological: Yes: Alert, Oriented Psychiatric: Yes: Alert Labs: CBC, BMP 02/03/17 05:44 02/03/17 05:44 INR, PTT INR 1.23 (0.82-1.09) H 02/03/17 10:25 Problem List - Problems (1) Alcoholic hepatitis Code(s): K70.10 - ALCOHOLIC HEPATITIS WITHOUT ASCITES (2) Benign prostatic hyperplasia Code(s): N40.0 - BENIGN PROSTATIC HYPERPLASIA WITHOUT LOWER URINRY TRACT SYMP Assessment/Plan Suspect erosive alcoholic gastritis causing hematemesis and cessation of eating. Given that the bleeding appears self-limited I doubt a variceal bleeding but have included rubber band ligation of varices in his informed consent. If bleeding resumes will start Octreotide. I have advised EGD and informed Eric of the potential for such complications as perforation and hemorrhage. l have scheduled it for tomorrow. Agree with PPI drip and Librium detoxification. I have strongly advised Eric to absolutely abstain from alcohol. If EGD is unrevealing a repeat colonoscopy will need to be considered.
[2017-02-03 18:35] LABS: MCH 31.4 pg (25.7-33.7); MCHC 34.5 g/dl (32.0-35.9); MEAN CELL VOLUME 91.3 fl (80-96); MEAN PLT VOLUME 7.8 fl (7.5-11.1); PLATELET COUNT 114 K/MM3 (134-434); RDW 15.5 % (11.9-15.9); WHITE BLOOD COUNT 5.7 K/mm3 (4.0-10.0)
[2017-02-03 19:09] LABS: MAGNESIUM 1.9 mg/dL (1.8-2.4); PHOSPHOROUS 1.3 mg/dL (2.5-4.9)
[2017-02-03] MEDS ORDERED: NAPH,MB-DB/K PH,MBDB POWDER PACKET PO ONE ×2 (19:26→23:15)
[2017-02-03] MEDS: SODIUM CHLORIDE 1,000 ML IV SCH ×2 (23:00→23:13)
[2017-02-04] MEDS ORDERED: diazePAM CARPU-JECT 10 MG/2 ML DISP.SYRIN IVPUSH SCH (02:00)
[2017-02-04] MEDS: PANTOPRAZOLE SODIUM 80 MG in SODIUM CHLORIDE 100 ML IVPB SCH (02:00)
[2017-02-04] MEDS: KCL 10 MEQ IVPB 100 ML IVPB SCH ×5 (06:15→20:45)
[2017-02-04] MEDS: INSULIN SLIDING SCALE (NOVOLOG) 1 VIAL SQ SCH ×3 (06:20→16:48)
[2017-02-04] MEDS: chlordiazePOXIDE HCL 25 MG CAPSULE PO SCH ×4 (06:20→22:48)
[2017-02-04 07:28] LABS: BASOPHIL 1.1 % (0-2.0); EOSINOPHIL 1.4 % (0-4.5); MCH 31.7 pg (25.7-33.7); MCHC 34.6 g/dl (32.0-35.9); MEAN CELL VOLUME 91.6 fl (80-96); MEAN PLT VOLUME 7.9 fl (7.5-11.1); NEUTROPHILS 56.2 % (42.8-82.8); PLATELET COUNT 103 K/MM3 (134-434); RDW 15.7 % (11.9-15.9); WHITE BLOOD COUNT 5.3 K/mm3 (4.0-10.0)
[2017-02-04 07:48] LABS: ALBUMIN 3.6 g/dl (3.4-5.0); BILIRUBIN,DIRECT 0.9 mg/dL (0.0-0.2); BILIRUBIN,TOTAL 2.1 mg/dL (0.2-1.0); TOT PROT 6.7 g/dl (6.4-8.2)
[2017-02-04 08:17] LABS: C-REACTIVE PROTEIN 1.9 MG/DL (0.00-0.3)
[2017-02-04 08:18] LABS: CALCIUM 8.4 mg/dL (8.5-10.1); CREATININE 0.7 mg/dL (0.7-1.3); MAGNESIUM 1.6 mg/dL (1.8-2.4); PHOSPHOROUS 2.4 mg/dL (2.5-4.9)
[2017-02-04 08:20] LABS: FERRITIN 527.816 ng/ml (16.4-293.9)
[2017-02-04] MEDS: TAMSULOSIN HCL 0.4 MG CAP.ER.24H (FP) PO SCH (09:04)
[2017-02-04] MEDS: amLODIPine BESYLATE 10 MG TABLET (FP) PO SCH (09:04)
[2017-02-04] MEDS: CARVEDILOL 25 MG TABLET (FP) PO SCH ×2 (09:04→22:47)
[2017-02-04] MEDS: THIAMINE HCL 200 MG/2 ML VIAL IVPB SCH (09:07)
[2017-02-04] MEDS: FOLIC ACID 1 MG TABLET (FP) PO SCH (09:10)
[2017-02-04] MEDS: MAGNESIUM OXIDE 400 MG TABLET (FP) PO SCH (09:13)
[2017-02-04] MEDS: MULTIVIT INJ. ADULT COMBO WITH VIT K 1 COMBO 10 ML VIAL IV SCH (09:20)
[2017-02-04] MEDS ORDERED: PROPOFOL 60 ML ONE (09:49)
--- NOTE | 2017-02-04 10:36 | PN ---
Progress Note (short form) - Note Progress Note: GI Procedure Note: Please see scanned EGD report. Severe reflux esophagitis but no varices were seen. Alcoholic gastroduodenitis was noted as well as portal gastropathy. No bleeding. Patient informed of findings and again advised to absolutely refrain from alcohol an to take PPI until EGD is repeated to exclude Yang's as an outpatient with either us or Dr Martinez. Problem List - Problems (1) Alcoholic hepatitis Code(s): K70.10 - ALCOHOLIC HEPATITIS WITHOUT ASCITES (2) Benign prostatic hyperplasia Code(s): N40.0 - BENIGN PROSTATIC HYPERPLASIA WITHOUT LOWER URINRY TRACT SYMP
[2017-02-04] MEDS: MAG HYDROX/AL HYDROX/SIMETH 30 ML UNIT-DOSE CUP PO SCH ×3 (11:49→22:47)
--- NOTE | 2017-02-04 12:55 | PN ---
Physical Exam: SUBJECTIVE: Patient seen and examined Patient resting in bed nad. No acute events. afebrile and hemodynamically stable. No further hematemesis. no melena. states he feels better. less tremors , mild anxiety and moderate diaphoreisis. no SZ or hallucinations. + BM (no melena or hematochezia). States he is concerned about a severe chronic cough productive of white flem x 8 mo. States he is uninterested in rehab despise being urged to quit drinking. no nausea. denies chest pain, sob, abd pain, n/v, diarrhea, constipation, dysuria. EGD today OBJECTIVE: Vital Signs Period Temp Pulse Resp BP Sys/Mccoy Pulse Ox Last 24 Hr 97.2 F-99.1 F 80-98 18-20 101-157/62-91 95-99 GENERAL: Awake, alert, and fully oriented, uncomfortable HEAD: Normal with no signs of trauma. EYES: Pupils equal, round and reactive to light, extraocular movements intact, sclera anicteric, conjunctiva clear. No lid lag. EARS, NOSE, THROAT: Moist mucous membranes. NECK: supple without JVD LUNGS: Breath sounds equal, clear to auscultation bilaterally HEART: regular rate and regular rhythm, normal S1 and S2 ABDOMEN: soft, mildy distended + hepatomegaly, + bowel sounds, mildly tender RUQ. MARVIN: no lesions, light brown soft stool, normal prostate MUSCULOSKELETAL: No CVA tenderness. UPPER EXTREMITIES: 2+ pulses, warm, well-perfused. No peripheral edema. LOWER EXTREMITIES: 2+ pulses, warm, well-perfused. No calf tenderness. No peripheral edema. NEUROLOGICAL: Cranial nerves II-XII grossly intact. normal speech PSYCHIATRIC: Cooperative. Good eye contact. Appropriate mood and affect. SKIN: Warm, dry Laboratory Results - last 24 hr 02/03/17 02/03/17 02/03/17 15:35 18:20 18:20 WBC 5.7 RBC 4.57 Hgb 14.4 Hct 41.7 MCV 91.3 MCHC 34.5 RDW 15.5 Plt Count 114 L MPV 7.8 Neutrophils % Lymphocytes % Monocytes % Eosinophils % Basophils % Sodium Potassium 2.9 L* Chloride Carbon Dioxide Anion Gap BUN Creatinine POC Glucometer 202 Random Glucose Calcium Phosphorus 1.3 L D Magnesium 1.9 D Ferritin Total Bilirubin Direct Bilirubin AST ALT Alkaline Phosphatase C-Reactive Protein Total Protein Albumin 02/04/17 02/04/17 02/04/17 00:35 05:35 05:35 WBC RBC Hgb Hct MCV MCHC RDW Plt Count MPV Neutrophils % Lymphocytes % Monocytes % Eosinophils % Basophils % Sodium 142 Potassium 2.6 L* Chloride 102 Carbon Dioxide 30 Anion Gap 10 BUN 5 L D Creatinine 0.7 POC Glucometer 138 Random Glucose 148 H Calcium 8.4 L Phosphorus 2.4 L D Magnesium 1.6 L Ferritin 527.816 H Cancelled Total Bilirubin Direct Bilirubin AST ALT Alkaline Phosphatase C-Reactive Protein 1.9 H Cancelled Total Protein Albumin 02/04/17 02/04/17 02/04/17 05:35 05:35 06:17 WBC 5.3 RBC 4.62 Hgb 14.6 Hct 42.3 MCV 91.6 MCHC 34.6 RDW 15.7 Plt Count 103 L MPV 7.9 Neutrophils % 56.2 D Lymphocytes % 34.5 D Monocytes % 6.8 Eosinophils % 1.4 D Basophils % 1.1 Sodium Potassium Chloride Carbon Dioxide Anion Gap BUN Creatinine POC Glucometer 116 Random Glucose Calcium Phosphorus Magnesium Ferritin Total Bilirubin 2.1 H Direct Bilirubin 0.9 H D AST 122 H D ALT 70 Alkaline Phosphatase 61 C-Reactive Protein Total Protein 6.7 Albumin 3.6 Active Medications Generic Name Dose Route Start Last Admin Trade Name Freq PRN Reason Stop Dose Admin Acetaminophen 650 mg 02/02/17 18:55 Tylenol - PO Q4H PRN FEVER OR PAIN Al Hydroxide/Mg Hydroxide 30 ml 02/04/17 10:45 02/04/17 11:49 Mylanta Oral Suspension - PO 30 ml Q6H [facility] Administration Amlodipine Besylate 10 mg 02/03/17 10:00 02/04/17 09:04 Norvasc - PO 10 mg DAILY [facility] Administration Carvedilol 25 mg 02/03/17 10:00 02/04/17 09:04 Coreg - PO 25 mg BID [facility] Administration Chlordiazepoxide HCl 25 mg 02/03/17 09:34 Librium - PO 02/06/17 09:33 Q4H PRN WITHDRAWAL(CONT SUBST) Chlordiazepoxide HCl 25 mg 02/04/17 11:00 02/04/17 11:49 Librium - PO 02/05/17 05:01 25 mg [id number] [facility] Administration Chlordiazepoxide HCl 15 mg 02/05/17 11:00 Librium - PO 02/06/17 05:01 [id number] [facility] Folic Acid 1 mg 02/03/17 10:00 02/04/17 09:10 Folic Acid - PO Not Given DAILY [facility] Insulin Aspart 1 vial 02/02/17 19:00 02/04/17 11:00 Novolog Vial Sliding Scale - SQ Not Given TIDAC [facility] Protocol Magnesium Oxide 400 mg 02/04/17 10:00 02/04/17 09:13 Mag-Ox - PO 400 mg DAILY [facility] Administration Multivitamins/Minerals 10 ml 02/03/17 10:00 02/04/17 09:20 Infuvite Adult - IV Not Given DAILY [facility] Ondansetron HCl 4 mg 02/02/17 18:53 02/03/17 00:21 Zofran Injection IVPB 4 mg Q4H PRN Administration NAUSEA Pantoprazole Sodium 40 mg 02/04/17 22:00 Protonix - PO BID [facility] Tamsulosin HCl 0.4 mg 02/04/17 08:30 02/04/17 09:04 Flomax - PO 0.4 mg DAILY@0830 [facility] Administration Thiamine HCl 200 mg 02/03/17 10:00 02/04/17 09:07 Vitamin B1 Injection - IVPB 200 mg DAILY [facility] Administration ASSESSMENT/PLAN: This is a 51 yo M with PMH of EtOh abuse, hematemesis and melena 1 yr ago, CAD s /p stents 7 yrs ago (not on a/c), HTN (coreg sometimes), HLD, IDDM ( noncomplliant), who presents with EtOH withdrawal and hematemesis. Acute EtOh withdrawal -uninterested in rehab -librium detox day 2 -Thiamina, folate -multivitamin -zofran prn -improving Hematemesis -rere groves vs gastritis -PPI drip -stool occult blood negative -scoped [address] Martinez (negative per patient.) -Gi consult for scope today; Findings: Severe reflux esophagitis, no varices; Alcoholic gastroduodenitis as well as portal gastropathy. No bleeding. -recommend PPI until repeat outpatient EGD to exclude Yang's esophagus IDDM -BGM TIDAC -Novolog sliding scale -a1c HTN -coreg 25 bid, norvasc 10 d HLD -lipid panel appreciated -hold stating due to transaminitis Transaminitis -trending down -liver fibrosis labs p/d -hepatitis panel p/d -MESFIN p/d -ashkenazi p/d -likely alcoholic Hyperbilirubinemia -t bili 2.1 stable, d bili 0.9; trend -f/u above labs Cough -cxr prerenal azotemia -IVF @ 100 FeN NS@100 replete hypokalemia 2.6 K rider x 2 NPO SCD, PPI Dispo: admit med romie Problem List - Problems (1) Alcohol dependence with uncomplicated withdrawal Code(s): F10.230 - ALCOHOL DEPENDENCE WITH WITHDRAWAL, UNCOMPLICATED (2) Hematemesis Code(s): K92.0 - HEMATEMESIS Qualifiers: Nausea presence: with nausea Qualified Code(s): K92.0 - Hematemesis (3) Alcohol abuse Code(s): F10.10 - ALCOHOL ABUSE, UNCOMPLICATED (4) CAD (coronary artery disease) Code(s): I25.10 - ATHSCL HEART DISEASE OF [place] CORONARY ARTERY W/O ANG PCTRS Qualifiers: Coronary Disease-Associated Artery/Lesion type: [place] artery [place] vs. transplanted heart: [place]key heart Associated angina: without angina Qualified Code(s): I25.10 - Atherosclerotic heart disease of [place] coronary artery without angina pectoris (5) Chronic alcoholism Code(s): F10.20 - ALCOHOL DEPENDENCE, UNCOMPLICATED Qualifiers: Substance use status: with intoxication Complication of substance- induced condition: uncomplicated Qualified Code(s): F10.220 - Alcohol dependence with intoxication, uncomplicated (6) HTN (hypertension) Code(s): I10 - ESSENTIAL (PRIMARY) HYPERTENSION (7) Vomiting Code(s): R11.10 - VOMITING, UNSPECIFIED Qualifiers: Nausea presence: with nausea (8) Hematochezia Code(s): K92.1 - MELENA (9) Diabetes Code(s): E11.9 - TYPE 2 DIABETES MELLITUS WITHOUT COMPLICATIONS (10) Hyperlipidemia Code(s): E78.5 - HYPERLIPIDEMIA, UNSPECIFIED Visit type - Emergency Visit Emergency Visit: Yes ED Registration Date: 02/02/17 Care time: The patient presented to the Emergency Department on the above date and was hospitalized for further evaluation of their emergent condition. - New Patient This patient is new to me today: No - Critical Care Critical Care patient: No - Discharge Referral Referred to [facility] No
--- NOTE | 2017-02-04 14:24 | PN ---
Teaching Attending Note Name of Resident: Cece Urena ATTENDING PHYSICIAN STATEMENT I saw and evaluated the patient. I reviewed the resident's note and discussed the case with the resident. I agree with the resident's findings and plan as documented. Patient is comfortable with no acute distress Vital Signs Temperature 98.1 F 02/04/17 10:10 Pulse Rate 85 02/04/17 10:40 Respiratory Rate 18 02/04/17 10:40 Blood Pressure 118/62 02/04/17 10:40 O2 Sat by Pulse Oximetry (%) 99 02/04/17 10:40 CBCD WBC 5.3 K/mm3 (4.0-10.0) 02/04/17 05:35 RBC 4.62 M/mm3 (4.00-5.60) 02/04/17 05:35 Hgb 14.6 GM/dL (11.7-16.9) 02/04/17 05:35 Hct 42.3 % (35.4-49) 02/04/17 05:35 MCV 91.6 fl (80-96) 02/04/17 05:35 MCHC 34.6 g/dl (32.0-35.9) 02/04/17 05:35 RDW 15.7 % (11.9-15.9) 02/04/17 05:35 Plt Count 103 K/MM3 (134-434) L 02/04/17 05:35 MPV 7.9 fl (7.5-11.1) 02/04/17 05:35 CMP Sodium 142 mmol/L (136-145) 02/04/17 05:35 Potassium 2.6 mmol/L (3.5-5.1) L* 02/04/17 05:35 Chloride 102 mmol/L (98-107) 02/04/17 05:35 Carbon Dioxide 30 mmol/L (21-32) 02/04/17 05:35 Anion Gap 10 (8-16) 02/04/17 05:35 BUN 5 mg/dL (7-18) L D 02/04/17 05:35 Creatinine 0.7 mg/dL (0.7-1.3) 02/04/17 05:35 Creat Clearance w eGFR > 60 (>60) 02/03/17 05:44 Random Glucose 148 mg/dL (74-106) H 02/04/17 05:35 Calcium 8.4 mg/dL (8.5-10.1) L 02/04/17 05:35 Total Bilirubin 2.1 mg/dL (0.2-1.0) H 02/04/17 05:35 AST 122 U/L (15-37) H D 02/04/17 05:35 ALT 70 U/L (12-78) 02/04/17 05:35 Alkaline Phosphatase 61 U/L (45-117) 02/04/17 05:35 Total Protein 6.7 g/dl (6.4-8.2) 02/04/17 05:35 Albumin 3.6 g/dl (3.4-5.0) 02/04/17 05:35 CARDIAC ENZYMES Creatine Kinase 200 IU/L (39-308) D 02/02/17 21:40 Troponin I < 0.02 ng/ml (0.00-0.05) 02/02/17 21:40 Current Medications Generic Name Dose Route Start Last Admin Trade Name Freq PRN Reason Stop Dose Admin Acetaminophen 650 mg 02/02/17 18:55 Tylenol - PO Q4H PRN FEVER OR PAIN Al Hydroxide/Mg Hydroxide 30 ml 02/04/17 10:45 02/04/17 11:49 Mylanta Oral Suspension - PO 30 ml Q6H [facility] Administration Amlodipine Besylate 10 mg 02/03/17 10:00 02/04/17 09:04 Norvasc - PO 10 mg DAILY [facility] Administration Carvedilol 25 mg 02/03/17 10:00 02/04/17 09:04 Coreg - PO 25 mg BID [facility] Administration Chlordiazepoxide HCl 25 mg 02/03/17 09:34 Librium - PO 02/06/17 09:33 Q4H PRN WITHDRAWAL(CONT SUBST) Chlordiazepoxide HCl 25 mg 02/04/17 11:00 02/04/17 11:49 Librium - PO 02/05/17 05:01 25 mg [id number] [facility] Administration Chlordiazepoxide HCl 15 mg 02/05/17 11:00 Librium - PO 02/06/17 05:01 [id number] [facility] Folic Acid 1 mg 02/03/17 10:00 02/04/17 09:10 Folic Acid - PO Not Given DAILY [facility] Insulin Aspart 1 vial 02/02/17 19:00 02/04/17 11:00 Novolog Vial Sliding Scale - SQ Not Given TIDAC [facility] Protocol Magnesium Oxide 400 mg 02/04/17 10:00 02/04/17 09:13 Mag-Ox - PO 400 mg DAILY [facility] Administration Multivitamins/Minerals 10 ml 02/03/17 10:00 02/04/17 09:20 Infuvite Adult - IV Not Given DAILY [facility] Ondansetron HCl 4 mg 02/02/17 18:53 02/03/17 00:21 Zofran Injection IVPB 4 mg Q4H PRN Administration NAUSEA Pantoprazole Sodium 40 mg 02/04/17 22:00 Protonix - PO BID [facility] Tamsulosin HCl 0.4 mg 02/04/17 08:30 02/04/17 09:04 Flomax - PO 0.4 mg DAILY@0830 [facility] Administration Thiamine HCl 200 mg 02/03/17 10:00 02/04/17 09:07 Vitamin B1 Injection - IVPB 200 mg DAILY [facility] Administration Home Medications Medication Instructions Recorded Folic Acid - 1 mg PO DAILY #0 tablet 12/19/12 Multivitamins [Multivit ([facility] 1 udtab PO DAILY #0 tab 12/19/12 Formulary)] Famotidine [Pepcid -] 40 mg PO DAILY 09/16/14 Tamsulosin HCl 0.4 mg PO DAILY 11/24/15 Amlodipine Besylate [Norvasc -] 10 mg PO DAILY #30 tablet 10/25/16 Carvedilol [Coreg -] 25 mg PO BID #60 tablet 10/25/16 ASSESSMENT AND PLAN: Patient is a 51 y/o man with h/o ETOH abuse , HTN, CAD s/p stenting , Diabetes, who presented with bleeding and intoxication of Etoh # Acute ETOH intoxication r/o DTs , monitor for signs of Wernicke's encephalopathy . On Librium protocol , folic acid and IVF # Upper GI bleed . likely for gastritis VS Delma Lou tear in setting of vomiting , hemoglobin is stable , no further bleed is noted at this time declined rectal exam for me .but in ER OB was neg . cont PPI gtt for now, had colonoscopy and EGD 1 yr ago, no report in our system .GI consult appreciated # H/o HTN: resume home meds. # DM : he takes Lantus 8-10 units at home , continue SSI while on liquids # hypokalemia and hypophosphatemia : replete and repeat # Acute Transaminitis : due to alcoholic hepatitis . will monitor # hyperlipidemia . LDL > goal . can't give statins now due to transaminitis Home meds need to be confirmed and updated please
[2017-02-04] MEDS ORDERED: POTASSIUM CHLORIDE TABS 20 MEQ TABLET.ER (FP) PO ONE (15:15)
[2017-02-04] MEDS: PANTOPRAZOLE 40 MG TABLET (FP) PO SCH (22:47)
[2017-02-05] MEDS: chlordiazePOXIDE HCL 25 MG CAPSULE PO SCH (06:12)
[2017-02-05] MEDS: MAG HYDROX/AL HYDROX/SIMETH 30 ML UNIT-DOSE CUP PO SCH ×3 (06:12→17:18)
[2017-02-05] MEDS: INSULIN SLIDING SCALE (NOVOLOG) 1 VIAL SQ SCH ×3 (06:12→17:16)
[2017-02-05] MEDS ORDERED: hydrALAZINE HCL 20 MG/ML VIAL IVPUSH ONE (07:53)
[2017-02-05] MEDS ORDERED: diazePAM CARPU-JECT 10 MG/2 ML DISP.SYRIN IVPUSH SCH (08:00)
[2017-02-05 08:07] LABS: BASOPHIL 1.1 % (0-2.0); EOSINOPHIL 2.1 % (0-4.5); MCH 31.7 pg (25.7-33.7); MCHC 34.5 g/dl (32.0-35.9); MEAN CELL VOLUME 91.9 fl (80-96); MEAN PLT VOLUME 8.1 fl (7.5-11.1); NEUTROPHILS 58.1 % (42.8-82.8); PLATELET COUNT 109 K/MM3 (134-434); RDW 15.2 % (11.9-15.9); WHITE BLOOD COUNT 5.8 K/mm3 (4.0-10.0)
[2017-02-05 08:07] LABS: SERUM IRON 90 ug/dL (38-169); TOTAL IRON BINDING CAPACITY 264 ug/dL (250-450); UIBC 174 ug/dL (111-343)
[2017-02-05 08:47] LABS: ALBUMIN 3.2 g/dl (3.4-5.0); CALCIUM 8.9 mg/dL (8.5-10.1)
[2017-02-05 08:50] LABS: BILIRUBIN,DIRECT 0.5 mg/dL (0.0-0.2); BILIRUBIN,TOTAL 1.2 mg/dL (0.2-1.0); CREATININE 0.5 mg/dL (0.7-1.3); TOT PROT 6.4 g/dl (6.4-8.2)
[2017-02-05] MEDS: PANTOPRAZOLE 40 MG TABLET (FP) PO SCH ×2 (09:50→21:28)
[2017-02-05] MEDS: THIAMINE HCL 200 MG/2 ML VIAL IVPB SCH (09:50)
[2017-02-05] MEDS: TAMSULOSIN HCL 0.4 MG CAP.ER.24H (FP) PO SCH (09:50)
[2017-02-05] MEDS: FOLIC ACID 1 MG TABLET (FP) PO SCH (09:50)
[2017-02-05] MEDS: MAGNESIUM OXIDE 400 MG TABLET (FP) PO SCH (09:50)
[2017-02-05] MEDS: CARVEDILOL 25 MG TABLET (FP) PO SCH ×2 (09:50→21:27)
[2017-02-05] MEDS: amLODIPine BESYLATE 10 MG TABLET (FP) PO SCH (09:51)
[2017-02-05] MEDS ORDERED: PT OWN MED DRAWER 7, Y5N ONE (09:54)
[2017-02-05] MEDS: POTASSIUM CHLORIDE TABS 20 MEQ TABLET.ER (FP) PO SCH ×2 (09:54→18:10)
[2017-02-05] MEDS: MULTIVIT INJ. ADULT COMBO WITH VIT K 1 COMBO 10 ML VIAL IV SCH (10:09)
[2017-02-05] MEDS ORDERED: LISINOPRIL 10 MG TABLET (FP) PO SCH (11:30)
--- NOTE | 2017-02-05 11:36 | DS ---
Physical Exam: SUBJECTIVE: Patient seen and examined Patient resting in bed nad. No acute events. s/p EGD yesterday. afebrile and hemodynamically stable. No further hematemesis. no melena. states he feels better. No tremors, anxiety, diaphoreisis. no SZ or hallucinations. + BM (no melena or hematochezia). States he is uninterested in rehab despise being once more urged to quit drinking. No nausea. denies chest pain, sob, abd pain, n/v, diarrhea, constipation, dysuria. OBJECTIVE: Vital Signs Period Temp Pulse Resp BP Sys/Mccoy Pulse Ox Last 24 Hr 98.1 F-99.3 F 83-98 18-20 107-167/70-102 94-94 PHYSICAL EXAM GENERAL: Awake, alert, and fully oriented, comfortable HEAD: Normal with no signs of trauma. EYES: Pupils equal, round and reactive to light, extraocular movements intact, sclera anicteric, conjunctiva clear. No lid lag. EARS, NOSE, THROAT: Moist mucous membranes. NECK: supple without JVD LUNGS: Breath sounds equal, clear to auscultation bilaterally HEART: regular rate and regular rhythm, normal S1 and S2 ABDOMEN: soft, mildy distended + hepatomegaly, + bowel sounds, mildly tender RUQ. MARVIN: no lesions, light brown soft stool, normal prostate MUSCULOSKELETAL: No CVA tenderness. UPPER EXTREMITIES: 2+ pulses, warm, well-perfused. No peripheral edema. LOWER EXTREMITIES: 2+ pulses, warm, well-perfused. No calf tenderness. No peripheral edema. NEUROLOGICAL: Cranial nerves II-XII grossly intact. normal speech PSYCHIATRIC: Cooperative. Good eye contact. Appropriate mood and affect. SKIN: Warm, dry LABS Laboratory Results - last 24 hr 02/04/17 02/04/17 02/05/17 05:35 15:41 05:35 WBC 5.8 RBC 4.44 Hgb 14.1 Hct 40.8 MCV 91.9 MCHC 34.5 RDW 15.2 Plt Count 109 L MPV 8.1 Neutrophils % 58.1 Lymphocytes % 32.1 Monocytes % 6.6 Eosinophils % 2.1 Basophils % 1.1 Sodium Potassium Chloride Carbon Dioxide Anion Gap BUN Creatinine POC Glucometer 193 Random Glucose Calcium Iron 90 TIBC 264 Iron Saturation 34 Total Bilirubin Direct Bilirubin AST ALT Alkaline Phosphatase Total Protein Albumin Tumor Marker AFP 2.3 Hepatitis C Antibody 0.2 02/05/17 02/05/17 05:35 05:57 WBC RBC Hgb Hct MCV MCHC RDW Plt Count MPV Neutrophils % Lymphocytes % Monocytes % Eosinophils % Basophils % Sodium 139 Potassium 2.7 L* Chloride 97 L Carbon Dioxide 32 Anion Gap 10 BUN 6 L Creatinine 0.5 L D POC Glucometer 132 Random Glucose 151 H Calcium 8.9 Iron TIBC Iron Saturation Total Bilirubin 1.2 H D Direct Bilirubin 0.5 H D AST 96 H D ALT 61 Alkaline Phosphatase 64 Total Protein 6.4 Albumin 3.2 L Tumor Marker AFP Hepatitis C Antibody HOSPITAL COURSE: Date of Admission:02/02/17 This is a 51 yo M with PMH of EtOh abuse, hematemesis and melena 1 yr ago, CAD s /p stents 7 yrs ago (not on a/c), HTN (coreg sometimes), HLD, IDDM ( noncomplliant), who presents with EtOH withdrawal and hematemesis. Patient has been drinking for 1 mo straight and has not eaten anything x1 week before admission. Vomiting for 2 days before admission, with some hematemesis. He has had a similar episode 1 mo ago with melena, at which time he was hospitalized on librium and with BEVERLY due to dehydration. On admission he reported mild RUQ abd pain, was anxious, diaphoretic and nauseous. He was admitted with Acute EtOh withdrawal and hematemesis. He was treated with librium taper, IVF and PPI drip. the day before d/c he has an upper endoscopy that revealed Severe reflux esophagitis, no varices; Alcoholic gastroduodenitis as well as portal gastropathy. No bleeding. GI recommend PPI PO until repeat outpatient EGD to exclude Yang's esophagus. He is to f/u with GI about his transaminitis and hyperbilirubinemia as well. Patient has been counseled repeatedly on quitting EtOH but refused rehab. He has HTN, mostly diastolic and was placed on Lisinopril 10. Patient has chronic cough, clear CXR, cough likely due to reflux. Date of Discharge: 02/05/17 Minutes to complete discharge: 30 (na) Discharge Summary Reason For Visit: ALCOHOL DEPENDENCE WITH UNCOMPLICATED WITHDRAWAL Current Active Problems Alcohol dependence with uncomplicated withdrawal (Acute) Alcoholic hepatitis (Acute) Benign prostatic hyperplasia (Acute) Diabetes (Acute) Hematemesis (Acute) Hematochezia (Acute) Hyperlipidemia (Acute) Condition: Stable - Instructions Diet, Activity, Other Instructions: You were admitted with alcohol withdrawal and vomiting blood. You completed Librium detox. Your Endoscopy showed severe issues with lining of esophagus due to reflux. This is caused by drinking alcohol. It is also causing your cough. Please follow up with a credit investigator in 2 weeks to discuss your liver and to schedule a repeat endoscopy. Please see your family doctor to adjust your high blood pressure medications. We urge you to quit drinking alcohol and to refer to Rehab or AA meetings. Return to the hospital if symptoms worsen. Referrals: Jimy Martinez MD [Staff Physician] - 1 Week Disposition: HOME - Home Medications Comprehensive Discharge Medication List: Ambulatory Orders Folic Acid - 1 mg PO DAILY #0 tablet 12/19/12 Multivitamins [Multivit ([facility] Formulary)] 1 udtab PO DAILY #0 tab 12/19/12 Famotidine [Pepcid -] 40 mg PO DAILY 09/16/14 Tamsulosin HCl 0.4 mg PO DAILY 11/24/15 Carvedilol [Coreg -] 25 mg PO BID #60 tablet 10/25/16 Lisinopril [Prinivil] 10 mg PO DAILY #30 tablet 02/05/17 Pantoprazole Sodium [Protonix -] 40 mg PO BID #60 tab 02/05/17 Potassium Chloride [K-Dur -] 20 meq PO BIDWM #60 bag 02/05/17 Problem List - Problems (1) Alcohol dependence with uncomplicated withdrawal Code(s): F10.230 - ALCOHOL DEPENDENCE WITH WITHDRAWAL, UNCOMPLICATED (2) Hematemesis Code(s): K92.0 - HEMATEMESIS Qualifiers: Nausea presence: with nausea Qualified Code(s): K92.0 - Hematemesis (3) Alcohol abuse Code(s): F10.10 - ALCOHOL ABUSE, UNCOMPLICATED (4) CAD (coronary artery disease) Code(s): I25.10 - ATHSCL HEART DISEASE OF [place] CORONARY ARTERY W/O ANG PCTRS Qualifiers: Coronary Disease-Associated Artery/Lesion type: [place] artery [place] vs. transplanted heart: [place] heart Associated angina: without angina Qualified Code(s): I25.10 - Atherosclerotic heart disease of [place] coronary artery without angina pectoris (5) Chronic alcoholism Code(s): F10.20 - ALCOHOL DEPENDENCE, UNCOMPLICATED Qualifiers: Substance use status: with intoxication Complication of substance- induced condition: uncomplicated Qualified Code(s): F10.220 - Alcohol dependence with intoxication, uncomplicated (6) HTN (hypertension) Code(s): I10 - ESSENTIAL (PRIMARY) HYPERTENSION (7) Vomiting Code(s): R11.10 - VOMITING, UNSPECIFIED Qualifiers: Nausea presence: with nausea (8) Hematochezia Code(s): K92.1 - MELENA (9) Diabetes Code(s): E11.9 - TYPE 2 DIABETES MELLITUS WITHOUT COMPLICATIONS (10) Hyperlipidemia Code(s): E78.5 - HYPERLIPIDEMIA, UNSPECIFIED This patient is new to me today: No Emergency Visit: Yes ED Registration Date: 02/02/17 Care time: The patient presented to the Emergency Department on the above date and was hospitalized for further evaluation of their emergent condition. Critical Care patient: No - Discharge Referral Referred to [facility] Med P.C.: No
[2017-02-05 12:14] LABS: MAGNESIUM 1.7 mg/dL (1.8-2.4)
--- NOTE | 2017-02-05 13:11 | PATH ---
Surgical Pathology Report Patient Name: JANNETTE RUBI [facility]. Rec. #: [id number] /Age/Gender: 1965 (Age: 51) / M Account: [id number] Location: 4 W TELEMETRY U Taken: 02/04/2017 Received: 02/04/2017 Reported: 02/05/2017 Physicians: Hoang Swanson M.D. Specimen(s) Received A: BX SECOND PORTION DUODENUM AND DUODENAL BULB B: BX ANTRUM Clinical History GI bleeding Hiatal hernia, severe GERD, portal gastropathy, duodenitis Final Diagnosis A. DUODENUM, SECOND PORTION AND BULB, BIOPSY: DUODENAL MUCOSA WITH CHRONIC INFLAMMATION. NO HISTOLOGIC EVIDENCE OF GLUTEN SENSITIVE ENTEROPATHY (CELIAC DISEASE). B. STOMACH, ANTRUM, BIOPSY: GASTRIC ANTRAL MUCOSA WITH MODERATE CHRONIC GASTRITIS AND MARKED REACTIVE GASTROPATHY WITH VASCULAR CONGESTION. NO H. PYLORI ORGANISMS IDENTIFIED WITH GIEMSA STAIN. Electronically Signed Sam Ramachandran M.D. Gross Description A. Received in formalin, labeled "biopsy second portion of duodenum and duodenal bulb" are 2 isidro, irregular portions of soft tissue averaging 0.4 cm in greatest dimension. The specimens are submitted in toto in one cassette. B. Received in formalin, labeled "biopsy antrum" is a isidro, irregular portion of soft tissue measuring 0.4 cm in greatest dimension. The specimen is submitted in toto in one cassette. 02/04/201702/04/2017
[2017-02-05] MEDS: chlordiazePOXIDE 5 MG CAPSULE PO SCH ×3 (14:00→21:28)
[2017-02-05] MEDS ORDERED: MAGNESIUM SULF 50% (8.12 MEQ/2 ML-1 GM VIAL) IVPB ONE (14:00)
[2017-02-05] MEDS ORDERED: POTASSIUM CHLORIDE 10 MEQ PREMIX IVPB (POTASSIUM RIDER) IVPB SCH (14:32)
[2017-02-05] MEDS ORDERED: POTASSIUM CHLORIDE TABS 20 MEQ TABLET.ER (FP) PO ONE (15:00)
--- NOTE | 2017-02-05 16:00 | DS ---
Physical Exam: SUBJECTIVE: Patient seen and examined OBJECTIVE: Vital Signs Period Temp Pulse Resp BP Sys/Mccoy Pulse Ox Last 24 Hr 98.1 F-99.3 F 83-98 20-20 143-167/79-102 94-94 PHYSICAL EXAM GENERAL: The patient is awake, alert, and fully oriented, in no acute distress. HEAD: Normal with no signs of trauma. EYES: PERRL, extraocular movements intact, sclera anicteric, conjunctiva clear. ENT: Ears normal, nares patent, oropharynx clear without exudates, moist mucous membranes. NECK: Trachea midline, full range of motion, supple. LUNGS: Breath sounds equal, clear to auscultation bilaterally, no wheezes, no crackles, no accessory muscle use. HEART: Regular rate and rhythm, S1, S2 without murmur, rub or gallop. ABDOMEN: Soft, nontender, nondistended, normoactive bowel sounds, no guarding, no rebound, no hepatosplenomegaly, no masses. EXTREMITIES: 2+ pulses, warm, well-perfused, no edema. NEUROLOGICAL: Cranial nerves II through XII grossly intact. Normal speech, gait not observed. PSYCH: Normal mood, normal affect. SKIN: Warm, dry, normal turgor, no rashes or lesions noted. LABS Laboratory Results - last 24 hr 02/04/17 02/05/17 02/05/17 05:35 05:35 05:35 WBC 5.8 RBC 4.44 Hgb 14.1 Hct 40.8 MCV 91.9 MCHC 34.5 RDW 15.2 Plt Count 109 L MPV 8.1 Neutrophils % 58.1 Lymphocytes % 32.1 Monocytes % 6.6 Eosinophils % 2.1 Basophils % 1.1 Sodium 139 Potassium 2.7 L* Chloride 97 L Carbon Dioxide 32 Anion Gap 10 BUN 6 L Creatinine 0.5 L D POC Glucometer Random Glucose 151 H Calcium 8.9 Magnesium 1.7 L Iron 90 TIBC 264 Iron Saturation 34 Total Bilirubin 1.2 H D Direct Bilirubin 0.5 H D AST 96 H D ALT 61 Alkaline Phosphatase 64 Total Protein 6.4 Albumin 3.2 L Tumor Marker AFP 2.3 Hepatitis A Ab Total Positive Hep Bs Antigen Negative Hep Bs Antibody Non reactive Hep B Core Total Ab Negative Hepatitis C Antibody 0.2 02/05/17 02/05/17 02/05/17 05:57 11:29 12:04 WBC RBC Hgb Hct MCV MCHC RDW Plt Count MPV Neutrophils % Lymphocytes % Monocytes % Eosinophils % Basophils % Sodium Potassium Chloride Carbon Dioxide Anion Gap BUN Creatinine POC Glucometer 132 151 Random Glucose Calcium Magnesium Cancelled Iron TIBC Iron Saturation Total Bilirubin Direct Bilirubin AST ALT Alkaline Phosphatase Total Protein Albumin Tumor Marker AFP Hepatitis A Ab Total Hep Bs Antigen Hep Bs Antibody Hep B Core Total Ab Hepatitis C Antibody 02/05/17 15:38 WBC RBC Hgb Hct MCV MCHC RDW Plt Count MPV Neutrophils % Lymphocytes % Monocytes % Eosinophils % Basophils % Sodium Potassium Chloride Carbon Dioxide Anion Gap BUN Creatinine POC Glucometer 177 Random Glucose Calcium Magnesium Iron TIBC Iron Saturation Total Bilirubin Direct Bilirubin AST ALT Alkaline Phosphatase Total Protein Albumin Tumor Marker AFP Hepatitis A Ab Total Hep Bs Antigen Hep Bs Antibody Hep B Core Total Ab Hepatitis C Antibody HOSPITAL COURSE: Date of Admission:02/02/17 Date of Discharge: 02/05/17 Discharge Summary Reason For Visit: ALCOHOL DEPENDENCE WITH UNCOMPLICATED WITHDRAWAL Current Active Problems Alcohol dependence with uncomplicated withdrawal (Acute) Alcoholic hepatitis (Acute) Benign prostatic hyperplasia (Acute) Diabetes (Acute) Hematemesis (Acute) Hematochezia (Acute) Hyperlipidemia (Acute) Condition: Stable - Instructions Diet, Activity, Other Instructions: You were admitted with alcohol withdrawal and vomiting blood. You completed Librium detox. Your Endoscopy showed severe issues with lining of esophagus due to reflux. This is caused by drinking alcohol. It is also causing your cough. Please follow up with a novelty maker in 2 weeks to discuss your liver and to schedule a repeat endoscopy. Please see your family doctor to adjust your high blood pressure medications. We urge you to quit drinking alcohol and to refer to Rehab or AA meetings. Return to the hospital if symptoms worsen. Referrals: Jimy Martinez MD [Staff Physician] - 1 Week Disposition: HOME - Home Medications Comprehensive Discharge Medication List: Ambulatory Orders Folic Acid - 1 mg PO DAILY #0 tablet 12/19/12 Multivitamins [Multivit ([facility] Formulary)] 1 udtab PO DAILY #0 tab 12/19/12 Famotidine [Pepcid -] 40 mg PO DAILY 09/16/14 Tamsulosin HCl 0.4 mg PO DAILY 11/24/15 Carvedilol [Coreg -] 25 mg PO BID #60 tablet 10/25/16 Lisinopril [Prinivil] 10 mg PO DAILY #30 tablet 02/05/17 Pantoprazole Sodium [Protonix -] 40 mg PO BID #60 tab 02/05/17 Potassium Chloride [K-Dur -] 20 meq PO BIDWM #60 bag 02/05/17 Problem List - Problems (1) Alcohol dependence with uncomplicated withdrawal Code(s): F10.230 - ALCOHOL DEPENDENCE WITH WITHDRAWAL, UNCOMPLICATED (2) Hematemesis Code(s): K92.0 - HEMATEMESIS Qualifiers: Nausea presence: with nausea Qualified Code(s): K92.0 - Hematemesis (3) Alcohol abuse Code(s): F10.10 - ALCOHOL ABUSE, UNCOMPLICATED (4) CAD (coronary artery disease) Code(s): I25.10 - ATHSCL HEART DISEASE OF [place] CORONARY ARTERY W/O ANG PCTRS Qualifiers: Coronary Disease-Associated Artery/Lesion type: [place] artery [place] vs. transplanted heart: [place] heart Associated angina: without angina Qualified Code(s): I25.10 - Atherosclerotic heart disease of [place] coronary artery without angina pectoris (5) Chronic alcoholism Code(s): F10.20 - ALCOHOL DEPENDENCE, UNCOMPLICATED Qualifiers: Substance use status: with intoxication Complication of substance- induced condition: uncomplicated Qualified Code(s): F10.220 - Alcohol dependence with intoxication, uncomplicated (6) HTN (hypertension) Code(s): I10 - ESSENTIAL (PRIMARY) HYPERTENSION (7) Vomiting Code(s): R11.10 - VOMITING, UNSPECIFIED Qualifiers: Nausea presence: with nausea (8) Hematochezia Code(s): K92.1 - MELENA (9) Diabetes Code(s): E11.9 - TYPE 2 DIABETES MELLITUS WITHOUT COMPLICATIONS (10) Hyperlipidemia Code(s): E78.5 - HYPERLIPIDEMIA, UNSPECIFIED - Discharge Referral Referred to [facility] Med P.C.: No
[2017-02-05] MEDS: POTASSIUM CHLORIDE 10 MEQ PREMIX IVPB (POTASSIUM RIDER) IVPB SCH ×2 (16:45→19:26)
[2017-02-05 19:31] VITALS: BP 142/97; PULSE 90; TEMP 99.1
--- NOTE | 2017-02-05 21:05 | PN ---
Teaching Attending Note Name of Resident: Cece Urena ATTENDING PHYSICIAN STATEMENT I saw and evaluated the patient. I reviewed the resident's note and discussed the case with the resident. I agree with the resident's findings and plan as documented. Vital Signs Temperature 99.1 F 02/05/17 19:25 Pulse Rate 90 02/05/17 19:25 Respiratory Rate 18 02/05/17 19:25 Blood Pressure 142/97 02/05/17 19:25 O2 Sat by Pulse Oximetry (%) 94 L 02/05/17 09:00 CBCD WBC 5.8 K/mm3 (4.0-10.0) 02/05/17 05:35 RBC 4.44 M/mm3 (4.00-5.60) 02/05/17 05:35 Hgb 14.1 GM/dL (11.7-16.9) 02/05/17 05:35 Hct 40.8 % (35.4-49) 02/05/17 05:35 MCV 91.9 fl (80-96) 02/05/17 05:35 MCHC 34.5 g/dl (32.0-35.9) 02/05/17 05:35 RDW 15.2 % (11.9-15.9) 02/05/17 05:35 Plt Count 109 K/MM3 (134-434) L 02/05/17 05:35 MPV 8.1 fl (7.5-11.1) 02/05/17 05:35 CMP Sodium 139 mmol/L (136-145) 02/05/17 05:35 Potassium 3.6 mmol/L (3.5-5.1) D 02/05/17 18:30 Chloride 97 mmol/L (98-107) L 02/05/17 05:35 Carbon Dioxide 32 mmol/L (21-32) 02/05/17 05:35 Anion Gap 10 (8-16) 02/05/17 05:35 BUN 6 mg/dL (7-18) L 02/05/17 05:35 Creatinine 0.5 mg/dL (0.7-1.3) L D 02/05/17 05:35 Creat Clearance w eGFR > 60 (>60) 02/03/17 05:44 Random Glucose 151 mg/dL (74-106) H 02/05/17 05:35 Calcium 8.9 mg/dL (8.5-10.1) 02/05/17 05:35 Total Bilirubin 1.2 mg/dL (0.2-1.0) H D 02/05/17 05:35 AST 96 U/L (15-37) H D 02/05/17 05:35 ALT 61 U/L (12-78) 02/05/17 05:35 Alkaline Phosphatase 64 U/L (45-117) 02/05/17 05:35 Total Protein 6.4 g/dl (6.4-8.2) 02/05/17 05:35 Albumin 3.2 g/dl (3.4-5.0) L 02/05/17 05:35 CARDIAC ENZYMES Creatine Kinase 200 IU/L (39-308) D 02/02/17 21:40 Troponin I < 0.02 ng/ml (0.00-0.05) 02/02/17 21:40 Current Medications Generic Name Dose Route Start Last Admin Trade Name Freq PRN Reason Stop Dose Admin Acetaminophen 650 mg 02/02/17 18:55 Tylenol - PO Q4H PRN FEVER OR PAIN Al Hydroxide/Mg Hydroxide 30 ml 02/04/17 10:45 02/05/17 17:18 Mylanta Oral Suspension - PO 30 ml Q6H SIERRA Administration Carvedilol 25 mg 02/03/17 10:00 02/05/17 09:50 Coreg - PO 25 mg BID SIERRA Administration Chlordiazepoxide HCl 25 mg 02/03/17 09:34 Librium - PO 02/06/17 09:33 Q4H PRN WITHDRAWAL(CONT SUBST) Chlordiazepoxide HCl 15 mg 02/05/17 11:00 02/05/17 17:18 Librium - PO 02/06/17 05:01 15 mg [id number] SIER[facility] Administration Folic Acid 1 mg 02/03/17 10:00 02/05/17 09:50 Folic Acid - PO 1 mg DAILY [facility]ER[facility] Administration Insulin Aspart 1 vial 02/02/17 19:00 02/05/17 17:16 Novolog Vial Sliding Scale - SQ Not Given [facility] Protocol Lisinopril 10 mg 02/05/17 11:30 02/05/17 14:01 Prinivil PO 10 mg DAILY [facility]ERRA Administration Magnesium Oxide 400 mg 02/04/17 10:00 02/05/17 09:50 Mag-Ox - PO 400 mg DAILY [facility]RA Administration Multivitamins/Minerals 10 ml 02/03/17 10:00 02/05/17 10:09 Infuvite Adult - IV 10 ml DAILY [facility]RA Administration Ondansetron HCl 4 mg 02/02/17 18:53 02/03/17 00:21 Zofran Injection IVPB 4 mg Q4H PRN Administration NAUSEA Pantoprazole Sodium 40 mg 02/04/17 22:00 02/05/17 09:50 Protonix - PO 40 mg BID [facility] Administration Potassium Chloride 20 meq 02/05/17 08:00 02/05/17 18:10 K-Dur - PO 20 meq BIDWM [facility] Administration Tamsulosin HCl 0.4 mg 02/04/17 08:30 02/05/17 09:50 Flomax - PO 0.4 mg DAILY@0830 [facility]ERRA Administration Thiamine HCl 200 mg 02/03/17 10:00 02/05/17 09:50 Vitamin B1 Injection - IVPB 200 mg DAILY SIERRA Administration Home Medications Medication Instructions Recorded Folic Acid - 1 mg PO DAILY #0 tablet 12/19/12 Multivitamins [Multivit ([facility] 1 udtab PO DAILY #0 tab 12/19/12 Formulary)] Famotidine [Pepcid -] 40 mg PO DAILY 09/16/14 Tamsulosin HCl 0.4 mg PO DAILY 11/24/15 Carvedilol [Coreg -] 25 mg PO BID #60 tablet 10/25/16 Lisinopril [Prinivil] 10 mg PO DAILY #30 tablet 02/05/17 Pantoprazole Sodium [Protonix -] 40 mg PO BID #60 tab 02/05/17 Potassium Chloride [K-Dur -] 20 meq PO BIDWM #60 bag 02/05/17 ASSESSMENT AND PLAN: Patient is a 51 y/o man with h/o ETOH abuse , HTN, CAD s/p stenting , Diabetes, who presented with bleeding and intoxication of Etoh #s/p Acute ETOH intoxication s/p Librium protocol , folic acid and IVF ; GI recommends PPI s/p EGD today ,repeat EGD in a month to exclude Yang's esophagus. He is to f/u with GI about his transaminitis and hyperbilirubinemia as well. Patient has been counseled repeatedly on quitting EtOH but refused alcohol rehab. He has HTN, mostly diastolic and was placed on Lisinopril 10. # Upper GI bleed s/p EGD repeat EGD in a month period to r/o Yang's esophagus # H/o HTN: resume home meds. # DM : he takes Lantus 8-10 units at home # hypokalemia and hypophosphatemia : replete # Acute Transaminitis : due to alcoholic hepatitis . to be followed up with GI # hyperlipidemia . LDL > goal . can't give statins now due to transaminitis
[2017-02-06 00:06] LABS: SMOOTH MUSCLE AB 7 Units (0-19)
[2017-02-06 06:06] LABS: HEP B SURFACE AB Non Reactive (.)
[2017-02-12 08:07] LABS: ALPHA 2 MACROGLOBULINS,QN 144 mg/dL (110-276); BILIRUBIN TOTAL 1.3 mg/dL (0.0-1.2); FIBROSIS SCORE- 0.56 (0.00-0.21); GGT= 165 IU/L (0-65); GLUCOSE SERUM 150 mg/dL (65-99); HAPTOGLOBIN= 83 mg/dL (34-200); HEIGHT. 66 Inches (.); TRIGLYCERIDES= 104 mg/dL (0-149); WEIGHT. 203 LBS (.)
== END 2017-02-05 22:03 | disposition home or self-care (01) | DRG 253 ==
LOC: JER 12:11 → UNDOADMIN 17:16 → JERBED 17:16 → J8W 22:02 → JERBED 22:02 → J8W 22:08 → JERBED 22:08 → J4W 23:23 → J5S 02-05 19:18
PROVIDERS: ADMIT Internal Medicine; ATTEND Internal Medicine
PROC: 0DB98ZX Excision of Duodenum, Via Natural or Artificial Opening Endoscopic, Diagnostic (ICD-10-PCS; principal; 2017-02-04 09:30)
DX: K92.2 Gastrointestinal hemorrhage, unspecified (principal); F10.230 Alcohol dependence with withdrawal, uncomplicated; I25.10 Atherosclerotic heart disease of native coronary artery without angina pectoris; E11.9 Type 2 diabetes mellitus without complications; E78.5 Hyperlipidemia, unspecified; E87.6 Hypokalemia; E83.39 Other disorders of phosphorus metabolism; R74.0 Nonspecific elevation of levels of transaminase and lactic acid dehydrogenase [LDH]; K70.10 Alcoholic hepatitis without ascites; N40.0 Benign prostatic hyperplasia without lower urinary tract symptoms; K21.0 Gastro-esophageal reflux disease with esophagitis; K22.70 Barrett's esophagus without dysplasia; K76.6 Portal hypertension; K31.89 Other diseases of stomach and duodenum; K29.60 Other gastritis without bleeding; Z87.891 Personal history of nicotine dependence; Z95.5 Presence of coronary angioplasty implant and graft; Z91.14 Patient's other noncompliance with medication regimen; Z79.4 Long term (current) use of insulin
CPT/HCPCS: 36415; 71010-TC; 80048; 80053; 80061; 80076; 82105; 82150; 82272; 82550; 82553; 82728; 83036; 83516; 83540; 83550; 83721; 83735; 84100; 84132; 84484; 85025; 85027; 85610; 86038; 86140; 86704; 86706; 86708; 87340; 88305-TC; 93005; 93010; 99285-25

== ENCOUNTER 2017-05-04 15:28 | Inpatient (IN) | payer OTHER ==
--- NOTE | 2017-05-04 16:01 | PDOC ---
History of Present Illness - History of Present Illness Initial Comments: 05/04/17 16:48 Patient is a 51 year old male with significant medical hx of IDDM, HTN, HLD, CAD s/p stents, pancreatitis, cholecystitis, gastritis, liver cirrhosis, and alcohol abuse who is presenting to the ED with four weeks of dizziness, generalized weakness and headaches. The patient also complains of productive cough, rhinorrhea, and low grade fever. The patient also endorses nausea and vomiting that started four days ago in addition to his current symptoms. Patient is a poor historian. Denies any abdominal pain, dysuria, hematuria, frequency, chest pain, shortness of breath, diarrhea, blood in stool, or black/ tarry stools. Patient has a history of hematemesis and melena from one year ago. Social Hx: Alcohol use every day. His last drink was yesterday. PCP: Bartolo White MD <Lin Armenta - Last Filed: 05/04/17 17:26> - General History Source: Patient, Old Records Exam Limitations: No Limitations <Jyoti Gillis - Last Filed: 05/04/17 18:14> - General Chief Complaint: Nausea/Vomiting Stated Complaint: WEAKNESS,VOMITING Time Seen by Provider: 05/04/17 15:46 Past History <Lin Armenta - Last Filed: 05/04/17 17:26> - Past Medical History Anemia: No Asthma: No Cancer: No Cardiac Disorders: Yes (afib, cardiac stent 2009) CVA: No COPD: No CHF: No Dementia: No Diabetes: Yes GI Disorders: No Disorders: No HTN: Yes Hypercholesterolemia: Yes Liver Disease: Yes Suicide Attempt (Hx): No Seizures: No Thyroid Disease: No Other medical history: etoh abuse - Surgical History Abdominal Surgery: No Appendectomy: No Cardiac Surgery: Yes (stent) Cholecystectomy: No Lung Surgery: No Neurologic Surgery: No Orthopedic Surgery: No - Psycho/Social/Smoking Cessation Hx Anxiety: No Suicidal Ideation: No Smoking Status: Yes Smoking History: Never smoked Have you smoked in the past 12 months: No Number of Cigarettes Smoked Daily: 0 If you are a former smoker, when did you quit?: 2005 Cigars Per Day: 0 Information on smoking cessation initiated: No Hx Alcohol Use: No Drug/Substance Use Hx: No Substance Use Type: None Hx Substance Use Treatment: No <Ruby Gillisy - Last Filed: 05/04/17 18:14> - Past Medical History Allergies/Adverse Reactions: Allergies Allergy/AdvReac Type Severity Reaction Status Date / Time No Known Allergies Allergy Verified 05/04/17 15:52 Home Medications: Ambulatory Orders Folic Acid - 1 mg PO DAILY #0 tablet 12/19/12 Multivitamins [Multivit ([facility] Formulary)] 1 udtab PO DAILY #0 tab 12/19/12 Famotidine [Pepcid -] 40 mg PO DAILY 09/16/14 Tamsulosin HCl 0.4 mg PO DAILY 11/24/15 Carvedilol [Coreg -] 25 mg PO BID #60 tablet 10/25/16 Lisinopril [Prinivil] 10 mg PO DAILY #30 tablet 02/05/17 Pantoprazole Sodium [Protonix -] 40 mg PO BID #60 tab 02/05/17 Potassium Chloride [K-Dur -] 20 meq PO BIDWM #60 bag 02/05/17 Review of Systems - Review of Systems Comments:: 05/04/17 16:48 GENERAL/CONSTITUTIONAL: Fever, chills, generalized weakness. HEAD, EYES, EARS, NOSE AND THROAT: Rhinorrhea. No change in vision. No ear pain or discharge. No sore throat. CARDIOVASCULAR: No chest pain or shortness of breath. RESPIRATORY: Productive cough. No wheezing or hemoptysis. GASTROINTESTINAL: Nausea, vomiting. No diarrhea or constipation. GENITOURINARY: No dysuria, frequency, or change in urination. MUSCULOSKELETAL: No joint or muscle swelling or pain. No neck or back pain. ENDOCRINE: No increased thirst. No abnormal weight change. SKIN: No rash NEUROLOGIC: Headache, dizziness. No loss of consciousness or change in strength/ sensation. <Lin Armenta - Last Filed: 05/04/17 17:26> *Physical Exam - Vital Signs Last Vital Signs Temp Pulse Resp BP Pulse Ox 98.4 F 108 H 18 111/74 100 05/04/17 15:30 05/04/17 15:30 05/04/17 15:30 05/04/17 15:30 05/04/17 15:30 - Physical Exam Comments: 05/04/17 16:50 GENERAL: Awake, alert, and fully oriented, in no acute distress HEAD: No signs of trauma EYES: PERRLA, EOMI, sclera anicteric, conjunctiva clear ENT: Auricles normal inspection, hearing grossly normal, nares patent, oropharynx clear without exudates. Moist mucosa NECK: Normal ROM, supple, no lymphadenopathy, JVD, or masses LUNGS: Breath sounds equal, clear to auscultation bilaterally. No wheezes, and no crackles HEART: Tachycardia, normal S1 and S2, no murmurs, rubs or gallops ABDOMEN: Soft, nontender, normoactive bowel sounds. No guarding, no rebound. No masses EXTREMITIES: Normal range of motion, no edema. No clubbing or cyanosis. No cords, erythema, or tenderness NEUROLOGICAL: Cranial nerves II through XII grossly intact. Normal speech, normal gait SKIN: Warm, Dry, normal turgor, no rashes or lesions noted. HEMATOLOGIC/LYMPHATIC: No anemia, easy bleeding, or history of blood clots. ALLERGIC/IMMUNOLOGIC: No hives or skin allergy. <Lin Armenta - Last Filed: 05/04/17 17:26> - Vital Signs Last Vital Signs Temp Pulse Resp BP Pulse Ox 98.4 F 108 H 18 111/74 100 05/04/17 15:30 05/04/17 15:30 05/04/17 15:30 05/04/17 15:30 05/04/17 15:30 <Jyoti Gillis - Last Filed: 05/04/17 18:14> Heart Score/ECG Review #1 05/04/17 16:52 Right bundle branch block, unchanged ECG from June 2016. <Lin Armenta - Last Filed: 05/04/17 17:26> ED Treatment Course - LABORATORY CBC & Chemistry Diagram: 05/04/17 17:00 05/04/17 17:00 - RADIOLOGY Radiograph Interpretation: 05/04/17 17:27 Chest X-Ray Impression: No acute disease. Reported By: Newton Dejesus MD <Lin Armenta - Last Filed: 05/04/17 17:26> - LABORATORY CBC & Chemistry Diagram: 05/04/17 17:00 05/04/17 17:00 <Jyoti Gillis - Last Filed: 05/04/17 18:14> Medical Decision Making - Medical Decision Making 05/04/17 16:03 51 y/o male with h/o DM, HTN, CAD s/p stent placement, pancreatitis, cirrhosis, ETOH abuse presents to the ED with c/o one month h/o generalized weakness that has gotten progressively worse over the past 4 days with decreased PO intake, nausea and vomiting. DDx includes but is not limited to: DKA, AKA, liver failure, infection (PNA, UTI), ACS, dehydration, electrolyte abnormality toxic/ metabolic derangement. Plan: 1. EKG 2. Labs 3. IVF for hydration 4. Observe and re-evaluate 05/04/17 18:11 Addendum: Labs were reviewed and are noted in the EMR. The creatinine is 3.1 ( baseline is 0.6), lipase is 450. His glucose is normal but the anion gap is elevated making alcoholic ketoacidosis within the DDx. <Jyoti Gillis - Last Filed: 05/04/17 18:14> *DC/Admit/Observation/Transfer - Attestations Scribe Attestion: 05/04/17 16:51 Documentation prepared by Lin Armenta, acting as medical laboratory specialist for Jyoti Gillis MD. <Lin Armenta - Last Filed: 05/04/17 17:26> - Discharge Dispostion Admit: Yes - Attestations Physician Attestion: 05/04/17 16:20 I, Dr. Jyoti Gillis, attest that the scribes documentation that appears above has been prepared under my direction and personally reviewed by me in its entirety. I confirmed that the note above accurately reflects all work, treatment, procedures, and medical decision-making performed by me. <Jyoti Gillis - Last Filed: 05/04/17 18:14> Diagnosis at time of Disposition: Weakness, Acute renal failure, Acute pancreatitis - Discharge Dispostion Condition at time of disposition: Stable - Referrals Referrals: Vidal Urias MD [Primary Care Provider] -
[2017-05-04] MEDS ORDERED: SODIUM CHLORIDE 1,000 ML IV STA ×2 (16:02→18:09)
[2017-05-04 17:12] LABS: EOSINOPHIL 0.3 % (0-4.5); MCH 30.4 pg (25.7-33.7); MEAN CELL VOLUME 89.3 fl (80-96); MEAN PLT VOLUME 7.2 fl (7.5-11.1); NEUTROPHILS 61.7 % (42.8-82.8); PLATELET COUNT 181 K/MM3 (134-434); RDW 16.3 % (11.9-15.9)
[2017-05-04 17:24] LABS: INR 1.05 (0.82-1.09); PROTHROMBIN TIME (PATIENT) 11.6 SEC (9.98-11.88)
[2017-05-04 17:51] LABS: ALBUMIN 4.4 g/dl (3.4-5.0); ANION GAP 17 (8-16); BILIRUBIN,TOTAL 1.6 mg/dL (0.2-1.0); CALCIUM 10.3 mg/dL (8.5-10.1); CO2 27 mmol/L (21-32); COCKROFT - GAULT 42.43; CREATININE 3.1 mg/dL (0.7-1.3); GLUCOSE,RANDOM 166 mg/dL (74-106); MAGNESIUM 2.4 mg/dL (1.8-2.4); PHOSPHOROUS 2.3 mg/dL (2.5-4.9); SGOT/AST 53 U/L (15-37); SGPT/ALT 41 U/L (12-78); TOT PROT 8.7 g/dl (6.4-8.2)
[2017-05-04 17:52] LABS: ALK PHOS 97 U/L (45-117); TROPONIN I < 0.02 ng/ml (0.00-0.05)
[2017-05-04] MEDS ORDERED: morphine CARPU-JECT 4 MG/1 ML DISP.SYRIN IVPUSH ONE (18:11)
[2017-05-04] MEDS ORDERED: morphine CARPU-JECT 4 MG/1 ML DISP.SYRIN ONE (18:14)
--- NOTE | 2017-05-04 18:58 | PN ---
<Brice Davies - Last Filed: 05/04/17 21:38> Teaching Attending Note Name of Resident: Carri Prescott ATTENDING PHYSICIAN STATEMENT I saw and evaluated the patient. I reviewed the resident's note and discussed the case with the resident. I agree with the resident's findings and plan as documented. SUBJECTIVE: OBJECTIVE: ASSESSMENT AND PLAN: <Viri Rome - Last Filed: 05/04/17 22:29> Teaching Attending Note ATTENDING PHYSICIAN STATEMENT I saw and evaluated the patient. I reviewed the resident's note and discussed the case with the resident. I agree with the resident's findings and plan as documented. SUBJECTIVE: 51 yo M with a PMHx of DM, HTN, HLD, AFIB, CAD s/p stents, pancreatitis, cholecystitis, ETOH abuse, presents with weakness headaches and dizziness. Patient also endorses associated cough and rhinorrhea. Patient also notes hes had a low grade fever at home with nausea and vomiting that started 3-4 weeks ago. Patient describes his fomit as blue/green with streaks of blood in it and states he vomits x10 per day. Patient states hes been unable to take his medications for 4 days due to the nausea and vomiting. Patient states his last drink was 2 days ago. Patient denies coffee ground emesis. Patient denies chest pain, palpitations and lightheadedness. OBJECTIVE: Last Vital Signs Temp Pulse Resp BP Pulse Ox 98.4 F 108 H 18 111/74 100 05/04/17 15:30 05/04/17 15:30 05/04/17 15:30 05/04/17 15:30 05/04/17 15:30 GENERAL: Awake, alert, and fully oriented, in no acute distress. Pt vomiting upon evaluation. HEENT: Atraumatic. PERRLA, EOMI. Moist mucosa. No JVD LUNGS: No distress, speaks full sentences, clear to auscultation bilaterally HEART: Regular rate and rhythm, normal S1 and S2, no murmurs, rubs or gallops, peripheral pulses normal and equal bilaterally. ABDOMEN: Soft, nontender, normoactive bowel sounds. No guarding, no rebound. No masses EXTREMITIES: Normal inspection, Normal range of motion, no edema. No clubbing or Cyanosis. NEUROLOGICAL: Cranial nerves II through XII grossly intact. Normal speech, gait not assessed, no focal sensorimotor deficits SKIN: Warm, Dry, normal turgor, no rashes or lesions noted. CBCD WBC 7.0 K/mm3 (4.0-10.0) 05/04/17 17:00 RBC 4.32 M/mm3 (4.00-5.60) 05/04/17 17:00 Hgb 13.1 GM/dL (11.7-16.9) 05/04/17 17:00 Hct 38.6 % (35.4-49) 05/04/17 17:00 MCV 89.3 fl (80-96) 05/04/17 17:00 MCHC 34.0 g/dl (32.0-35.9) 05/04/17 17:00 RDW 16.3 % (11.9-15.9) H 05/04/17 17:00 Plt Count 181 K/MM3 (134-434) D 05/04/17 17:00 MPV 7.2 fl (7.5-11.1) L D 05/04/17 17:00 CMP Sodium 136 mmol/L (136-145) 05/04/17 17:00 Potassium 4.3 mmol/L (3.5-5.1) 05/04/17 17:00 Chloride 92 mmol/L (98-107) L 05/04/17 17:00 Carbon Dioxide 27 mmol/L (21-32) 05/04/17 17:00 Anion Gap 17 (8-16) H 05/04/17 17:00 BUN 63 mg/dL (7-18) H D 05/04/17 17:00 Creatinine 3.1 mg/dL (0.7-1.3) H D 05/04/17 17:00 Creat Clearance w eGFR 21.18 (>60) 05/04/17 17:00 Calcium 10.3 mg/dL (8.5-10.1) H 05/04/17 17:00 Total Bilirubin 1.6 mg/dL (0.2-1.0) H D 05/04/17 17:00 AST 53 U/L (15-37) H D 05/04/17 17:00 ALT 41 U/L (12-78) D 05/04/17 17:00 Alkaline Phosphatase 97 U/L (45-117) D 05/04/17 17:00 Total Protein 8.7 g/dl (6.4-8.2) H D 05/04/17 17:00 Albumin 4.4 g/dl (3.4-5.0) D 05/04/17 17:00 CXR No acute process ECG R bundle branch Sinus tachy @104 T wave inversions in anterior and inferior leads QTC 497 ASSESSMENT AND PLAN: 51 yo M with a PMHx of IDDM, HTN, HLD, AFIB, CAD s/p stents, pancreatitis, cholecystitis, gastritis, liver cirrhosis, and alcohol abuse who presents with dizziness, weakness and headaches also with associated N/V found to have acute renal failure. 1.) Acute renal failure most likely due to dehydration -Gentle IVF -Urine lytes 2.) Nausea and vomiting -ddx gastroenteritis vs withdrawl -CT abd pelvis negative. -Continue with [facility] protocol -IVF -Monitor electrolytes 3.) Anion gap acidosis most likely due to ETOH ketoacidosis vs uremia -Monitor -Recheck BMP at midnight 4.) IDDM -Gap most likely from ETOH possibly uremia -Insulin sliding scale -IVF -Diabetic diet 5.) Hypercalcemia -Mild -Gentle hydration 6.) Hyperbilirubinemia -Check bilirubin trend 7.) ETOH abuse -[facility] protocal -Detox consult -Banana bag -Continue thiamine and folic acid daily 8.) HTN -Hold EVELIN-I 9.) Transaminitis -Most likely due to ETOH abuse -monitor 10.) Gastritis -Continue protonix -Last endoscopy in January 2017 with no Varices seen -Patient was to have repeat EGD in March to r/o Yang's DVT ppx -Low risk -SCDs -ambulate Documentation is prepared by Viri Rome acting as medical imaging technician for Brice Davies D.O.
--- NOTE | 2017-05-04 19:25 | HP ---
CHIEF COMPLAINT: PCP: Bartool White MD HISTORY OF PRESENT ILLNESS: 51 year old male with significant medical hx of IDDM, HTN, HLD, CAD s/p stents, pancreatitis, cholecystitis, gastritis, liver cirrhosis, and alcohol abuse who is presenting to the ED with four weeks of dizziness, generalized weakness and headaches. patient complaints of vomiting blue/green vomit with very small amount of bright red blood 10x/day for 4 week. Patient reports unable to keep any food or water down. has not taking any his medications and insulin in 4 days. Patient is a poor historian. regular BM two days ago. Patient has a history of hematemesis and melena from one year ago. Denies coffee ground emissis. He denies chest pain, cough, shortness of breath, headache. He denies changes in bowel habits, dysuria, hematuria, urinary frequency/urgency, flank pain, testicular pain or penile discharge. ER course was notable for: 1. EKG 2. Labs 3. IVF for hydration 4. abd CT scan Recent Travel: no PAST MEDICAL HISTORY: as HPI PAST SURGICAL HISTORY: coronary pci x2 2009 Social History: lives alone at home Smoking: former smoker Alcohol:20 years, stopped from [id number], started drinking again in 2007 after divorce. Alcohol use 2 glasses vodka every day. His last drink was yesterday.now a day Drugs: no Family History: HTn, DM Allergies No Known Allergies Allergy (Verified 05/04/17 15:52) HOME MEDICATIONS: Home Medications Medication Instructions Recorded Folic Acid - 1 mg PO DAILY #0 tablet 12/19/12 Multivitamins [Multivit ([facility] 1 udtab PO DAILY #0 tab 12/19/12 Formulary)] Famotidine [Pepcid -] 40 mg PO DAILY 09/16/14 Tamsulosin HCl 0.4 mg PO DAILY 11/24/15 Carvedilol [Coreg -] 25 mg PO BID #60 tablet 10/25/16 Lisinopril [Prinivil] 10 mg PO DAILY #30 tablet 02/05/17 Pantoprazole Sodium [Protonix -] 40 mg PO BID #60 tab 02/05/17 Potassium Chloride [K-Dur -] 20 meq PO BIDWM #60 bag 02/05/17 REVIEW OF SYSTEMS CONSTITUTIONAL: Absent: fever, chills, diaphoresis, generalized weakness, malaise, loss of appetite, weight change HEENT: Absent: rhinorrhea, nasal congestion, throat pain, throat swelling, difficulty swallowing, mouth swelling, ear pain, eye pain, visual changes CARDIOVASCULAR: Absent: chest pain, syncope, palpitations, irregular heart rate, lightheadedness , peripheral edema RESPIRATORY: Absent: cough, shortness of breath, dyspnea with exertion, orthopnea, wheezing, stridor, hemoptysis GASTROINTESTINAL: Absent: abdominal pain, abdominal distension, nausea, vomiting, diarrhea, constipation, melena, hematochezia GENITOURINARY: Absent: dysuria, frequency, urgency, hesitancy, hematuria, flank pain, genital pain MUSCULOSKELETAL: Absent: myalgia, arthralgia, joint swelling, back pain, neck pain SKIN: Absent: rash, itching, pallor HEMATOLOGIC/IMMUNOLOGIC: Absent: easy bleeding, easy bruising, lymphadenopathy, frequent infections ENDOCRINE: Absent: unexplained weight gain, unexplained weight loss, heat intolerance, cold intolerance NEUROLOGIC: Absent: headache, focal weakness or paresthesias, dizziness, unsteady gait, seizure, mental status changes, bladder or bowel incontinence PSYCHIATRIC: Absent: anxiety, depression, suicidal or homicidal ideation, hallucinations. PHYSICAL EXAMINATION Vital Signs - 24 hr 05/04/17 15:30 Temperature 98.4 F Pulse Rate 108 H Respiratory 18 Rate Blood Pressure 111/74 O2 Sat by Pulse 100 Oximetry (%) GENERAL: Awake, alert, and fully oriented, in mild acute distress. HEAD: Normal with no signs of trauma. EYES: Pupils equal, round and reactive to light, extraocular movements intact, sclera anicteric, conjunctiva clear. No lid lag. EARS, NOSE, THROAT: Ears normal, nares patent, oropharynx clear without exudates. dry mucous membranes. NECK: Normal range of motion, supple without lymphadenopathy, JVD, or masses. LUNGS: Breath sounds equal, clear to auscultation bilaterally. No wheezes, and no crackles. No accessory muscle use. HEART: Regular rate and rhythm, normal S1 and S2 without murmur, rub or gallop. ABDOMEN: Obese, Soft, nontender, not distended, normoactive bowel sounds, no guarding, no rebound, no masses. MUSCULOSKELETAL: Normal range of motion at all joints. No bony deformities or tenderness. No CVA tenderness. LOWER EXTREMITIES: 2+ pulses, warm, well-perfused. No calf tenderness. No peripheral edema. NEUROLOGICAL: Normal speech. PSYCHIATRIC: Cooperative. Good eye contact. Appropriate mood and affect. SKIN: Warm, dry, normal turgor, no rashes or lesions noted, normal capillary refill. Laboratory Results - last 24 hr 05/04/17 05/04/17 05/04/17 17:00 17:00 17:00 WBC 7.0 RBC 4.32 Hgb 13.1 Hct 38.6 MCV 89.3 MCHC 34.0 RDW 16.3 H Plt Count 181 D MPV 7.2 L D Neutrophils % 61.7 Lymphocytes % 25.9 Monocytes % 11.1 H Eosinophils % 0.3 D Basophils % 1.0 INR 1.05 PTT (Actin FS) 32.0 Sodium 136 Potassium 4.3 Chloride 92 L Carbon Dioxide 27 Anion Gap 17 H BUN 63 H D Creatinine 3.1 H D Creat Clearance w eGFR 21.18 Random Glucose 166 H Calcium 10.3 H Phosphorus 2.3 L Magnesium 2.4 D Total Bilirubin 1.6 H D AST 53 H D ALT 41 D Alkaline Phosphatase 97 D Creatine Kinase 113 Troponin I < 0.02 Total Protein 8.7 H D Albumin 4.4 D Lipase 472 H Alcohol, Quantitative 05/04/17 17:00 WBC RBC Hgb Hct MCV MCHC RDW Plt Count MPV Neutrophils % Lymphocytes % Monocytes % Eosinophils % Basophils % INR PTT (Actin FS) Sodium Potassium Chloride Carbon Dioxide Anion Gap BUN Creatinine Creat Clearance w eGFR Random Glucose Calcium Phosphorus Magnesium Total Bilirubin AST ALT Alkaline Phosphatase Creatine Kinase Troponin I Total Protein Albumin Lipase Alcohol, Quantitative < 5.0 CXR No acute process ECG R bundle branch Sinus tachy @104 T wave inversions in anterior and inferior leads QTC 497 ASSESSMENT/PLAN: This is a 51 yo M with PMH of EtOh abuse, hematemesis and melena 1 yr ago, CAD s /p stents 7 yrs ago (not on a/c), HTN (coreg sometimes), HLD, IDDM ( noncomplliant), who presents with weakness, nausea and vomiting Nausea and vomiting, CT abd pelvis negative. possible gastroenteritis, Possible withdraw. -Continue with [facility] protocol -IVF -Monitor electrolytes -PPI -Reglan BEVERLY: prerenal azotemia 2/2 dehydration -IVF -Urine lytes Acute EtOh withdrawal -uninterested in rehab -[facility] protocol -Detox consult -librium detox -Thiamina, folate -multivitamin -Reglan prn Elevated anion GAP acidosis most likely secondary to alcohol, Blood sugar 166, Bicarb 27 -recheck BMP in am Hematemesis: very small amount red blood, no coffee ground emesis -rere groves vs gastritis -PPI -scoped [address] Martinez (negative per patient.) -Gi consult for scope january; Findings: Severe reflux esophagitis, no varices; Alcoholic gastroduodenitis as well as portal gastropathy. No bleeding. -recommend PPI until -patietn was to have repeat outpatient EGD to exclude Yang's esophagus. IDDM -BGM TIDAC -Novolog sliding scale -a1c HTN -coreg 25 bid, -hold EVELIN I HLD -lipid panel appreciated -hold statin due to transaminitis Transaminitis-secondary to alcohol abuse -trending down -liver fibrosis labs -hepatitis panel Hyperbilirubinemia -total bili in am -f/u above labs Hypercalcemia -Mild -Gentle hydration FEN NS@100 replete electolytes as needed diebetic diet SCD, PPI Dispo: admit med romie Visit type - Emergency Visit Emergency Visit: Yes ED Registration Date: 05/04/17 Care time: The patient presented to the Emergency Department on the above date and was hospitalized for further evaluation of their emergent condition. - New Patient This patient is new to me today: Yes Date on this admission: 05/05/17 - Critical Care Critical Care patient: No
[2017-05-04] MEDS ORDERED: METOCLOPRAMIDE HCL INJECTION 10 MG/2 ML VIAL IVPB PRN (21:10)
[2017-05-04] MEDS ORDERED: SODIUM CHLORIDE 1,000 ML IV SCH (21:15)
[2017-05-04] MEDS ORDERED: FOLIC ACID INJECTION - 1 MG, THIAMINE HCL 100 MG, MULTIVIT INJECTION ADULT 10 ML in SOD... IVPB ONE (21:18)
[2017-05-04] MEDS ORDERED: chlordiazePOXIDE HCL 25 MG CAPSULE PO PRN (21:19)
[2017-05-04] MEDS: PANTOPRAZOLE SODIUM 100 ML IVPB SCH (21:52)
[2017-05-04] MEDS ORDERED: PANTOPRAZOLE SODIUM 100 ML IVPB ONE (21:52)
[2017-05-04 22:25] LABS: VENOUS BLOOD GAS HCO3 26.6 meq/L (19-25); VENOUS PH 7.45 (7.32-7.42)
[2017-05-05] MEDS: INSULIN SLIDING SCALE (NOVOLOG) 1 VIAL SQ SCH ×3 (00:20→12:51)
[2017-05-05] MEDS: chlordiazePOXIDE HCL 25 MG CAPSULE PO SCH ×5 (00:25→22:30)
[2017-05-05] MEDS: RANITIDINE HCL 150 MG TABLET (FP) PO SCH ×2 (00:25→22:29)
[2017-05-05 01:47] VITALS: BMI 30.5
[2017-05-05 06:55] LABS: BASOPHIL 0.8 % (0-2.0); MCHC 35.2 g/dl (32.0-35.9); MEAN CELL VOLUME 90.9 fl (80-96); NEUTROPHILS 48.3 % (42.8-82.8); PLATELET COUNT 132 K/MM3 (134-434); WHITE BLOOD COUNT 6.4 K/mm3 (4.0-10.0)
[2017-05-05 07:19] LABS: ALBUMIN 3.5 g/dl (3.4-5.0); ANION GAP 13 (8-16); CALCIUM 9.1 mg/dL (8.5-10.1); CO2 26 mmol/L (21-32); GLUCOSE,RANDOM 96 mg/dL (74-106); INR 1.14 (0.82-1.09); MAGNESIUM 2.1 mg/dL (1.8-2.4); PROTHROMBIN TIME (PATIENT) 12.6 SEC (9.98-11.88)
[2017-05-05 07:22] LABS: ACTIVATED PTT 28.6 SECONDS (26.9-34.4)
[2017-05-05 07:25] LABS: ALK PHOS 71 U/L (45-117); BILIRUBIN,TOTAL 1.5 mg/dL (0.2-1.0); COCKROFT - GAULT 49.4; CREATININE 2.1 mg/dL (0.7-1.3); PHOSPHOROUS 2.9 mg/dL (2.5-4.9); SGOT/AST 42 U/L (15-37); SGPT/ALT 31 U/L (12-78); TOT PROT 6.9 g/dl (6.4-8.2)
[2017-05-05 09:16] LABS: BILIRUBIN,DIRECT 0.4 mg/dL (0.0-0.2)
[2017-05-05 09:18] LABS: TROPONIN I < 0.02 ng/ml (0.00-0.05)
[2017-05-05] MEDS ORDERED: PATIENT'S OWN MEDICATION (NON-FORMULARY) (Famotidine [Pepcid -] 40 MG) PO SCH (10:00)
[2017-05-05 10:16] LABS: URINE APPEARANCE SLCLOUDY; URINE BILIRUBIN NEGATIVE (NEGATIVE); URINE BLOOD NEGATIVE (NEGATIVE); URINE COLOR YELLOW; URINE GLUCOSE (UA) 2+ (NEGATIVE); URINE KETONE 1+ (NEGATIVE); URINE LEUK ESTERASE NEGATIVE (NEGATIVE); URINE NITRITE NEGATIVE (NEGATIVE); URINE UROBILINOGEN NEGATIVE E.U./dl (0.2-1.0)
[2017-05-05 10:18] LABS: URINE PROTEIN 2+ (NEGATIVE)
--- NOTE | 2017-05-05 10:52 | EKG ---
Test Reason : Blood Pressure : / mmHG Vent. Rate : 104 BPM Atrial Rate : 104 BPM P-R Int : 162 ms QRS Dur : 138 ms QT Int : 378 ms P-R-T Axes : 028 -05 011 degrees QTc Int : 497 ms SINUS TACHYCARDIA RIGHT BUNDLE BRANCH BLOCK INFERIOR INFARCT (CITED ON OR BEFORE 04-SEP-2015) ABNORMAL ECG WHEN COMPARED WITH ECG OF 02-FEB-2017 22:00, NO SIGNIFICANT CHANGE WAS FOUND Confirmed by HAYLEY WHITE, SHARI ([id number]) on 05/05/2017 10:51:39 AM Referred By: Confirmed By:SHARI HARDY MD
[2017-05-05 11:00] LABS: URINE BACTERIA RARE /hpf (NONE SEEN); URINE HYALINE CAST 4 /lpf; URINE MUCUS RARE; URINE RBC 15 /hpf (0-3)
--- NOTE | 2017-05-05 11:13 | PN ---
Teaching Attending Note Name of Resident: Anil Valencia ATTENDING PHYSICIAN STATEMENT I saw and evaluated the patient. I reviewed the resident's note and discussed the case with the resident. I agree with the resident's findings and plan as documented. SUBJECTIVE:states nausea and vomiting has resolved. been vomiting for 3 weeks associated with green fluid and streaks of red. no vomiting once admitted and started on librium per patient. states his last drink was 2 days prior to the vomiting. has not eaten anything during this time and requesting to eat now. denies CP, SOB,fever, chills, auditory/visual/tactile hallucinations. no hx of withdrawal seizures or DT in the past. does not want detox at [facility] or inpatient rehab. has no desire to stop drinking at this time. "im just going to cut back" OBJECTIVE: Last Vital Signs Temp Pulse Resp BP Pulse Ox 98.4 F 89 18 142/98 96 05/05/17 06:00 05/05/17 06:00 05/05/17 06:00 05/05/17 06:00 05/04/17 23:45 General NAD CV S1 S2 RRR no murmur/rub/gallop Lungs CTA B/L no wheezing/rales/rhonchi Abdomen soft NT/ND obese Extremities slight tremor on extension ASSESSMENT AND PLAN: 51yo M with PMH continuous ETOH dependence, ETOH cirrhosis, CAD s/p stent presented to the ER with intractable nausea and vomiting 1. Nausea and vomiting- viral gastroenteritis vs ETOH withdrawals. assoc with hemtemesis which has now resolved. CT abdomen and pelvis is negative for acute pathology. symptoms resolved. will advance regular diet and monitor for symptoms. had recent EGD showing gastritis was not taking PPI at home. restart. CIWA 3 on librium protocol. detox consulted. does not want to go to [facility] for detox. will continue protocol here. antiemetics.banana bag. thiamine/folate/ mvi. counseled in detail risks of continued ETOH use assoc with increased risk fo CAD and cirrhosis. 2. BEVERLY- likely dehydration. improved. will repeat level later today. if no improvement consider u/s to further workup. avoid nephrotoxic. hold acei 3. ACute blood loss anemia- hemetemsis resolved. likley some is dilutional component. will repeat this afternoon. no hx of varices. will need repeat EGD on discharge 4. AG acidosis- possible alcoholic ketoacidosis. lactate not checked on admission. denies methanol or ethylene glycol use. now resolved 5. CAD s/p stent- no signs of acs. cont coreg 6. DVT ppx- EAM. can d/c cardiac monitoring
[2017-05-05] MEDS: TAMSULOSIN HCL 0.4 MG CAP.ER.24H (FP) PO SCH (11:30)
[2017-05-05] MEDS: MULTIVITAMINS (DAILY MVI) TABLET (FP) PO SCH (11:30)
[2017-05-05] MEDS: FOLIC ACID 1 MG TABLET (FP) PO SCH (11:30)
[2017-05-05] MEDS: PANTOPRAZOLE SODIUM 100 ML IVPB SCH (11:31)
--- NOTE | 2017-05-05 11:44 | PN ---
Physical Exam: SUBJECTIVE: Patient seen and examined at bedside. Stated his symptoms of n/v, headache, and weakness have improved compared to first came in. Denies hallucination, tactile disturbance, tremors, fever, chills, chest pain, sob, dark stool or urinary symptoms. OBJECTIVE: Vital Signs Period Temp Pulse Resp BP Sys/Mccoy Pulse Ox Last 24 Hr 98.4 F-99.7 F 84-89 18-18 142-159/86-98 96-96 GENERAL: AAO x 3, appears appropriated to stated age, quiet, speak in full sentences, in no acute distress. EYES:PERRLA, sclera anicteric, conjunctiva clear. ENT: oropharynx clear without exudates, moist mucous membranes. LUNGS: CTAB HEART: RRR, S1, S2 without murmur, rub or gallop. ABDOMEN: Soft, slight tenderness in RUQ upon deep palpation, nondistended, normoactive bowel sounds, no guarding, no rebound, no hepatosplenomegaly EXTREMITIES: no edema. NEUROLOGICAL: Cranial nerves II through XII grossly intact. Normal speech. Fine tremor on outstretched R hand PSYCH: Normal mood, normal affect. SKIN: Warm, dry, normal turgor, no rashes or lesions noted CBCD WBC 6.4 K/mm3 (4.0-10.0) 05/05/17 05:35 RBC 3.57 M/mm3 (4.00-5.60) L 05/05/17 05:35 Hgb 11.4 GM/dL (11.7-16.9) L D 05/05/17 05:35 Hct 32.4 % (35.4-49) L D 05/05/17 05:35 MCV 90.9 fl (80-96) 05/05/17 05:35 MCHC 35.2 g/dl (32.0-35.9) 05/05/17 05:35 RDW 16.0 % (11.9-15.9) H 05/05/17 05:35 Plt Count 132 K/MM3 (134-434) L D 05/05/17 05:35 MPV 7.0 fl (7.5-11.1) L 05/05/17 05:35 CMP Sodium 143 mmol/L (136-145) 05/05/17 05:35 Potassium 4.1 mmol/L (3.5-5.1) 05/05/17 05:35 Chloride 104 mmol/L (98-107) D 05/05/17 05:35 Carbon Dioxide 26 mmol/L (21-32) 05/05/17 05:35 Anion Gap 13 (8-16) 05/05/17 05:35 BUN 54 mg/dL (7-18) H 05/05/17 05:35 Creatinine 2.1 mg/dL (0.7-1.3) H D 05/05/17 05:35 Creat Clearance w eGFR 33.20 (>60) 05/05/17 05:35 Calcium 9.1 mg/dL (8.5-10.1) 05/05/17 05:35 Total Bilirubin 1.5 mg/dL (0.2-1.0) H 05/05/17 05:35 AST 42 U/L (15-37) H D 05/05/17 05:35 ALT 31 U/L (12-78) D 05/05/17 05:35 Alkaline Phosphatase 71 U/L (45-117) D 05/05/17 05:35 Total Protein 6.9 g/dl (6.4-8.2) D 05/05/17 05:35 Albumin 3.5 g/dl (3.4-5.0) D 05/05/17 05:35 Urine Test Results Urine Color Yellow 05/05/17 05:40 Urine Appearance Slcloudy 05/05/17 05:40 Urine pH 5.0 (5.0-8.0) 05/05/17 05:40 Urine Protein 2+ (NEGATIVE) H 05/05/17 05:40 Urine Glucose (UA) 2+ (NEGATIVE) H 05/05/17 05:40 Urine Ketones 1+ (NEGATIVE) H 05/05/17 05:40 Urine Blood Negative (NEGATIVE) 05/05/17 05:40 Urine Nitrite Negative (NEGATIVE) 05/05/17 05:40 Urine Bilirubin Negative (NEGATIVE) 05/05/17 05:40 Ur Leukocyte Esterase Negative (NEGATIVE) 05/05/17 05:40 Urine RBC 15 /hpf (0-3) 05/05/17 05:40 Urine WBC None /hpf (3-5) 05/05/17 05:40 Urine Bacteria Rare /hpf (NONE SEEN) 05/05/17 05:40 Urine Mucus Rare 05/05/17 05:40 Active Medications Generic Name Dose Route Start Last Admin Trade Name Freq PRN Reason Stop Dose Admin Carvedilol 25 mg 05/05/17 10:00 Coreg - PO BID SIERRA Chlordiazepoxide HCl 25 mg 05/04/17 21:19 Librium - PO 05/07/17 21:18 Q4H PRN WITHDRAWAL(CONT SUBST) Chlordiazepoxide HCl 50 mg 05/04/17 23:00 05/05/17 05:51 Librium - PO 05/05/17 17:01 50 mg [id number] SIERRA Administration Chlordiazepoxide HCl 25 mg 05/05/17 23:00 Librium - PO 05/06/17 17:01 [id number] SIERRA Chlordiazepoxide HCl 15 mg 05/06/17 23:00 Librium - PO 05/07/17 17:01 [id number] SIERRA Folic Acid 1 mg 05/05/17 10:00 Folic Acid - PO DAILY ON LICENSE OF [facility] Sodium Chloride 1,000 mls @ 75 mls/hr 05/04/17 21:15 05/05/17 05:52 Normal Saline - IV Not Given ASDIR SIERRA Pantoprazole Sodium 100 mls @ 200 mls/hr 05/04/17 21:30 05/04/17 21:52 Protonix 40mg Ivpb (Pre-Docked) IVPB 200 mls/hr DAILY SIERRA Administration Metoclopramide HCl 10 mg 05/04/17 21:10 Reglan Injection - IVPB Q6H PRN NAUSEA AND/OR VOMITING Multivitamins/Minerals/Vitamin C 1 tab 05/05/17 10:00 Tab-A-Vit - PO DAILY SIERRA Ranitidine HCl 300 mg 05/05/17 00:30 05/05/17 00:25 Zantac - PO 300 mg HS SIERRA Administration Tamsulosin HCl 0.4 mg 05/05/17 10:00 Flomax - PO DAILY ON LICENSE OF [facility] IMAGING CT abd on 05/04: no acute pathology CXR on 05/04: normal finding ASSESSMENT/PLAN: 51 yo M with extensive h/o EtOH dependence with multiple admissions for related complications (pancreatitis, gastritis, liver cirrhosis) admitted to telemetry for alcohol withdrawal. Intractable nausea and vomiting - Resolved - 2/2 alcohol withdrawal vs. gastroenteritis - CIWA score = 3 - Cont. librium taper protocol - Detox consult - Advance diet - Cont. PPI, antiemetics, PO thiamine/folic acid/multivitamin Acute normocytic anemia - Dilutional vs. hematemesis - Repeat CBC Acute kidney injury - Normal baseline - Likely pre-renal - Repeat BMP - Cont. hydration - f/u FeNa and renal U/S Elevated bilirubin - Direct bilirubin mildly elevated - Likely combination of both extra and intrahepatic etiology - Cont. to monitor Transaminitis - Resolved IDDM - BGM - Novolog sliding scale HTN - Cont. coreg - Hold EVELIN I HLD - Not on statin - f/u lipid profile FEN - IVF not indicated - Normal lytes - DM diet Prophylaxis - DVT: SCDs - GI: on home protonix Dispo - Awaiting detox consult - Pt requested to be discharged tomorrow Visit type - Emergency Visit Emergency Visit: No - New Patient This patient is new to me today: Yes Date on this admission: 05/05/17 - Critical Care Critical Care patient: No - Discharge Referral Referred to [facility] Med [facility].C.: No
[2017-05-05 13:17] LABS: MCH 30.9 pg (25.7-33.7); MCHC 33.6 g/dl (32.0-35.9); MEAN CELL VOLUME 91.8 fl (80-96); MEAN PLT VOLUME 6.8 fl (7.5-11.1); PLATELET COUNT 132 K/MM3 (134-434); RDW 16.4 % (11.9-15.9); WHITE BLOOD COUNT 5.8 K/mm3 (4.0-10.0)
[2017-05-05] MEDS: CARVEDILOL 25 MG TABLET (FP) PO SCH ×2 (13:43→22:29)
[2017-05-05] MEDS: THIAMINE HCL 100 MG TABLET (FP) PO SCH (13:43)
[2017-05-05 13:47] LABS: CALCIUM 9.6 mg/dL (8.5-10.1); COCKROFT - GAULT 49.4; CREATININE 2.1 mg/dL (0.7-1.3)
[2017-05-05] MEDS: POTASSIUM CHLORIDE TABS 20 MEQ TABLET.ER (FP) PO SCH (17:22)
[2017-05-05] MEDS: PANTOPRAZOLE 40 MG TABLET (FP) PO SCH (22:29)
[2017-05-06] MEDS: chlordiazePOXIDE HCL 25 MG CAPSULE PO SCH ×2 (05:14→11:24)
[2017-05-06] MEDS: POTASSIUM CHLORIDE TABS 20 MEQ TABLET.ER (FP) PO SCH ×2 (09:25→17:55)
[2017-05-06] MEDS: FOLIC ACID 1 MG TABLET (FP) PO SCH (09:25)
[2017-05-06] MEDS: THIAMINE HCL 100 MG TABLET (FP) PO SCH (09:25)
[2017-05-06] MEDS: TAMSULOSIN HCL 0.4 MG CAP.ER.24H (FP) PO SCH (09:25)
[2017-05-06] MEDS: MULTIVITAMINS (DAILY MVI) TABLET (FP) PO SCH (09:25)
[2017-05-06] MEDS: PANTOPRAZOLE 40 MG TABLET (FP) PO SCH ×2 (09:25→22:03)
[2017-05-06 10:54] LABS: MCH 31.1 pg (25.7-33.7); MEAN CELL VOLUME 91.7 fl (80-96); MEAN PLT VOLUME 6.5 fl (7.5-11.1); PLATELET COUNT 132 K/MM3 (134-434); RDW 15.9 % (11.9-15.9); WHITE BLOOD COUNT 4.1 K/mm3 (4.0-10.0)
[2017-05-06] MEDS: CARVEDILOL 25 MG TABLET (FP) PO SCH ×2 (11:24→22:03)
[2017-05-06 11:26] LABS: ALBUMIN 3.8 g/dl (3.4-5.0); CALCIUM 9.4 mg/dL (8.5-10.1)
[2017-05-06 11:31] LABS: BILIRUBIN,DIRECT 0.3 mg/dL (0.0-0.2); CREATININE 1.7 mg/dL (0.7-1.3); PHOSPHOROUS 2.9 mg/dL (2.5-4.9); TOT PROT 7.3 g/dl (6.4-8.2)
--- NOTE | 2017-05-06 12:04 | CONSULT ---
Consult Detox [facility] Reason for Current Admission/Consult: Alcohol withdrawal sx. - History History of Present Illness: 51 y/o pt. known to me from prior admissions - History Source History Provided By: Patient, Medical Record - Alcohol/Substance Use Hx Alcohol Use: Yes (2 glasses of vodka daily) - Past Medical History SOCIAL SERVICES AIDE: Yes: Seizure (ALCOHOL WITHDRAWAL,FREQUENT BLACKOUTS). No: CVA Cardio/Vascular: Yes: CAD (2 stents placed [facility] 2013), HTN, Hyperlipdemia. No: AFIB, CHF Gastrointestinal: Yes: GERD Hepatobiliary: Yes: Other (Alcoholic liver disease) Renal/: Yes: Renal Inusuff, BPH Psych: Yes: Addictions (ALCOHOL) Endocrine: Yes: Diabetes Mellitus - Significant Medical Findings: Laboratory Tests 05/04/17 05/04/17 05/04/17 17:00 17:00 17:00 WBC 7.0 RBC 4.32 Hgb 13.1 Hct 38.6 MCV 89.3 MCHC 34.0 RDW 16.3 H Plt Count 181 D MPV 7.2 L D Neutrophils % 61.7 Lymphocytes % 25.9 Monocytes % 11.1 H Eosinophils % 0.3 D Basophils % 1.0 INR 1.05 PTT (Actin FS) 32.0 VBG pH POC VBG pCO2 POC VBG pO2 Mixed VBG HCO3 Sodium 136 Potassium 4.3 Chloride 92 L Carbon Dioxide 27 Anion Gap 17 H BUN 63 H D Creatinine 3.1 H D Creat Clearance w eGFR 21.18 POC Glucometer Random Glucose 166 H Calcium 10.3 H Phosphorus 2.3 L Magnesium 2.4 D Total Bilirubin 1.6 H D Direct Bilirubin AST 53 H D ALT 41 D Alkaline Phosphatase 97 D Creatine Kinase 113 Troponin I < 0.02 Total Protein 8.7 H D Albumin 4.4 D Lipase 472 H Urine Color Urine Appearance Urine pH Ur Specific [place] Urine Protein Urine Glucose (UA) Urine Ketones Urine Blood Urine Nitrite Urine Bilirubin Urine Urobilinogen Ur Leukocyte Esterase Urine RBC Urine WBC Urine Bacteria Hyaline Casts Urine Mucus Ur Random Sodium Ur Random Potassium Ur Random Chloride Urine Creatinine Alcohol, Quantitative Acetone, Qual Positive,trace 05/04/17 05/04/17 05/05/17 17:00 22:20 00:16 WBC RBC Hgb Hct MCV MCHC RDW Plt Count MPV Neutrophils % Lymphocytes % Monocytes % Eosinophils % Basophils % INR PTT (Actin FS) VBG pH 7.45 H POC VBG pCO2 39.2 D POC VBG pO2 57.4 H D Mixed VBG HCO3 26.6 H Sodium Potassium Chloride Carbon Dioxide Anion Gap BUN Creatinine Creat Clearance w eGFR POC Glucometer 113 Random Glucose Calcium Phosphorus Magnesium Total Bilirubin Direct Bilirubin AST ALT Alkaline Phosphatase Creatine Kinase Troponin I Total Protein Albumin Lipase Urine Color Urine Appearance Urine pH Ur Specific [place] Urine Protein Urine Glucose (UA) Urine Ketones Urine Blood Urine Nitrite Urine Bilirubin Urine Urobilinogen Ur Leukocyte Esterase Urine RBC Urine WBC Urine Bacteria Hyaline Casts Urine Mucus Ur Random Sodium Ur Random Potassium Ur Random Chloride Urine Creatinine Alcohol, Quantitative < 5.0 Acetone, Qual 05/05/17 05/05/17 05/05/17 05:13 05:35 05:35 WBC 6.4 RBC 3.57 L Hgb 11.4 L D Hct 32.4 L D MCV 90.9 MCHC 35.2 RDW 16.0 H Plt Count 132 L D MPV 7.0 L Neutrophils % 48.3 D Lymphocytes % 38.8 D Monocytes % 11.1 H Eosinophils % 1.0 D Basophils % 0.8 INR 1.14 PTT (Actin FS) 28.6 VBG pH POC VBG pCO2 POC VBG pO2 Mixed VBG HCO3 Sodium Potassium Chloride Carbon Dioxide Anion Gap BUN Creatinine Creat Clearance w eGFR POC Glucometer 97 Random Glucose Calcium Phosphorus Magnesium Total Bilirubin Direct Bilirubin AST ALT Alkaline Phosphatase Creatine Kinase Troponin I Total Protein Albumin Lipase Urine Color Urine Appearance Urine pH Ur Specific [place] Urine Protein Urine Glucose (UA) Urine Ketones Urine Blood Urine Nitrite Urine Bilirubin Urine Urobilinogen Ur Leukocyte Esterase Urine RBC Urine WBC Urine Bacteria Hyaline Casts Urine Mucus Ur Random Sodium Ur Random Potassium Ur Random Chloride Urine Creatinine Alcohol, Quantitative Acetone, Qual 05/05/17 05/05/17 05/05/17 05:35 05:35 05:35 WBC RBC Hgb Hct MCV MCHC RDW Plt Count MPV Neutrophils % Lymphocytes % Monocytes % Eosinophils % Basophils % INR PTT (Actin FS) VBG pH POC VBG pCO2 POC VBG pO2 Mixed VBG HCO3 Sodium 143 Potassium 4.1 Chloride 104 D Carbon Dioxide 26 Anion Gap 13 BUN 54 H Creatinine 2.1 H D Creat Clearance w eGFR 33.20 POC Glucometer Random Glucose 96 D Calcium 9.1 Phosphorus 2.9 D Magnesium 2.1 Total Bilirubin 1.5 H Direct Bilirubin 0.4 H Cancelled AST 42 H D ALT 31 D Alkaline Phosphatase 71 D Creatine Kinase Troponin I < 0.02 Cancelled Total Protein 6.9 D Albumin 3.5 D Lipase 336 Cancelled Urine Color Urine Appearance Urine pH Ur Specific [place] Urine Protein Urine Glucose (UA) Urine Ketones Urine Blood Urine Nitrite Urine Bilirubin Urine Urobilinogen Ur Leukocyte Esterase Urine RBC Urine WBC Urine Bacteria Hyaline Casts Urine Mucus Ur Random Sodium Ur Random Potassium Ur Random Chloride Urine Creatinine Alcohol, Quantitative Acetone, Qual 05/05/17 05/05/17 05/05/17 05:40 12:49 13:05 WBC 5.8 RBC 4.01 Hgb 12.4 Hct 36.8 MCV 91.8 MCHC 33.6 RDW 16.4 H Plt Count 132 L MPV 6.8 L Neutrophils % Lymphocytes % Monocytes % Eosinophils % Basophils % INR PTT (Actin FS) VBG pH POC VBG pCO2 POC VBG pO2 Mixed VBG HCO3 Sodium Potassium Chloride Carbon Dioxide Anion Gap BUN Creatinine Creat Clearance w eGFR POC Glucometer [phone] Random Glucose Calcium Phosphorus Magnesium Total Bilirubin Direct Bilirubin AST ALT Alkaline Phosphatase Creatine Kinase Troponin I Total Protein Albumin Lipase Urine Color Yellow Urine Appearance Slcloudy Urine pH 5.0 Ur Specific [place] >= 1.030 H Urine Protein 2+ H Urine Glucose (UA) 2+ H Urine Ketones 1+ H Urine Blood Negative Urine Nitrite Negative Urine Bilirubin Negative Urine Urobilinogen Negative Ur Leukocyte Esterase Negative Urine RBC 15 Urine WBC None Urine Bacteria Rare Hyaline Casts 4 Urine Mucus Rare Ur Random Sodium Ur Random Potassium Ur Random Chloride Urine Creatinine Alcohol, Quantitative Acetone, Qual 05/05/17 05/05/17 05/05/17 13:05 16:59 19:00 WBC RBC Hgb Hct MCV MCHC RDW Plt Count MPV Neutrophils % Lymphocytes % Monocytes % Eosinophils % Basophils % INR PTT (Actin FS) VBG pH POC VBG pCO2 POC VBG pO2 Mixed VBG HCO3 Sodium 142 Potassium 4.2 Chloride 103 Carbon Dioxide 27 Anion Gap 12 BUN 51 H Creatinine 2.1 H Creat Clearance w eGFR POC Glucometer [id number] Random Glucose 96 Calcium 9.6 Phosphorus Magnesium Total Bilirubin Direct Bilirubin AST ALT Alkaline Phosphatase Creatine Kinase Troponin I Total Protein Albumin Lipase Urine Color Urine Appearance Urine pH Ur Specific [place] Urine Protein Urine Glucose (UA) Urine Ketones Urine Blood Urine Nitrite Urine Bilirubin Urine Urobilinogen Ur Leukocyte Esterase Urine RBC Urine WBC Urine Bacteria Hyaline Casts Urine Mucus Ur Random Sodium 81 Ur Random Potassium Ur Random Chloride Urine Creatinine Alcohol, Quantitative Acetone, Qual 05/05/17 05/05/17 05/06/17 19:00 19:00 10:20 WBC 4.1 RBC 3.60 L Hgb 11.2 L Hct 33.0 L MCV 91.7 MCHC 34.0 RDW 15.9 Plt Count 132 L MPV 6.5 L Neutrophils % Lymphocytes % Monocytes % Eosinophils % Basophils % INR PTT (Actin FS) VBG pH POC VBG pCO2 POC VBG pO2 Mixed VBG HCO3 Sodium Potassium Chloride Carbon Dioxide Anion Gap BUN Creatinine Creat Clearance w eGFR POC Glucometer Random Glucose Calcium Phosphorus Magnesium Total Bilirubin Direct Bilirubin AST ALT Alkaline Phosphatase Creatine Kinase Troponin I Total Protein Albumin Lipase Urine Color Urine Appearance Urine pH Ur Specific [place] Urine Protein Urine Glucose (UA) Urine Ketones Urine Blood Urine Nitrite Urine Bilirubin Urine Urobilinogen Ur Leukocyte Esterase Urine RBC Urine WBC Urine Bacteria Hyaline Casts Urine Mucus Ur Random Sodium 81 Ur Random Potassium 32.5 Ur Random Chloride 89 Urine Creatinine 206.0 Alcohol, Quantitative Acetone, Qual labs noted Assessment Plan - Diagnosis (1) Alcohol dependence with uncomplicated withdrawal Status: Acute - Medication Detox Regimen/Protocol: Librium
[2017-05-06] MEDS ORDERED: chlordiazePOXIDE 5 MG CAPSULE PO SCH ×2 (13:32→23:00)
--- NOTE | 2017-05-06 13:53 | PN ---
Teaching Attending Note Name of Resident: Anil Valencia ATTENDING PHYSICIAN STATEMENT I saw and evaluated the patient. I reviewed the resident's note and discussed the case with the resident. I agree with the resident's findings and plan as documented. SUBJECTIVE:currently asymptomatic. states nausea and vomiting has resolved. denies MEJIA, CP, SOB,fever, chills, N/V/C/D OBJECTIVE: Last Vital Signs Temp Pulse Resp BP Pulse Ox 97.9 F 81 18 154/98 98 05/06/17 09:00 05/06/17 09:00 05/06/17 09:00 05/06/17 09:00 05/06/17 09:00 General NAD Abdomen soft NT/ND obese Extremities slight tremor on extension ASSESSMENT AND PLAN: 51yo M with PMH continuous ETOH dependence, ETOH cirrhosis, CAD s/p stent presented to the ER with intractable nausea and vomiting 1. Nausea and vomiting- viral gastroenteritis vs ETOH withdrawals. now resolved. tolerating regular diet. 2. Acute ETOH withdrawals- CIWA 0. on librium taper is to be completed tomorrow. pt needs to leave early in AM. will start librium 15mg at 1700 ( scheduled next dose) instead of final dose of 25mg. refusing inpatient rehab. thiamine/folate/mvi. counseled in detail risks of continued ETOH use assoc with increased risk fo CAD and cirrhosis. 2. BEVERLY- likely dehydration. improved. will call PMD for baseline Cr. renal u/s with no obstruction or hydro noted. avoid nephrotoxic. hold acei 3. ACute blood loss anemia- hemetemsis resolved. stable. 4. AG acidosis- possible alcoholic ketoacidosis. resolved 5. CAD s/p stent- no signs of acs. cont coreg 6. DVT ppx- EAM. 7.d/c planning in the AM
--- NOTE | 2017-05-06 14:31 | PN ---
Physical Exam: SUBJECTIVE: Patient seen and examined at bedside. Stated he's improved overall. LLE weakness which has been chronic. Tolerating diet. Had bowel movement and urination is OK. Denies hallucination, tactile disturbance, tremors, fever, chills, chest pain, sob, dark stool or urinary symptoms. OBJECTIVE: Vital Signs Period Temp Pulse Resp BP Sys/Mccoy Pulse Ox Last 24 Hr 97.9 F-98.9 F 72-90 18-20 116-154/80-98 98-98 GENERAL: AAO x 3, appears appropriated to stated age, quiet, speak in full sentences, in no acute distress. EYES: PERRLA, sclera anicteric, conjunctiva clear. ENT: oropharynx clear without exudates, moist mucous membranes. LUNGS: CTAB HEART: RRR, S1, S2 without murmur, rub or gallop. ABDOMEN: Soft, slight tenderness in RUQ upon deep palpation, nondistended, normoactive bowel sounds, no guarding, no rebound, no hepatosplenomegaly EXTREMITIES: no edema. NEUROLOGICAL: Cranial nerves II through XII grossly intact. Normal speech. no tremors observed PSYCH: Normal mood, normal affect. SKIN: Warm, dry, normal turgor, no rashes or lesions noted CBCD WBC 4.1 K/mm3 (4.0-10.0) 05/06/17 10:20 RBC 3.60 M/mm3 (4.00-5.60) L 05/06/17 10:20 Hgb 11.2 GM/dL (11.7-16.9) L 05/06/17 10:20 Hct 33.0 % (35.4-49) L 05/06/17 10:20 MCV 91.7 fl (80-96) 05/06/17 10:20 MCHC 34.0 g/dl (32.0-35.9) 05/06/17 10:20 RDW 15.9 % (11.9-15.9) 05/06/17 10:20 Plt Count 132 K/MM3 (134-434) L 05/06/17 10:20 MPV 6.5 fl (7.5-11.1) L 05/06/17 10:20 CMP Sodium 138 mmol/L (136-145) 05/06/17 10:20 Potassium 4.2 mmol/L (3.5-5.1) 05/06/17 10:20 Chloride 101 mmol/L (98-107) 05/06/17 10:20 Carbon Dioxide 27 mmol/L (21-32) 05/06/17 10:20 Anion Gap 10 (8-16) 05/06/17 10:20 BUN 40 mg/dL (7-18) H D 05/06/17 10:20 Creatinine 1.7 mg/dL (0.7-1.3) H 05/06/17 10:20 Creat Clearance w eGFR 42.37 (>60) 05/06/17 10:20 Calcium 9.4 mg/dL (8.5-10.1) 05/06/17 10:20 Total Bilirubin 1.0 mg/dL (0.2-1.0) D 05/06/17 10:20 AST 48 U/L (15-37) H 05/06/17 10:20 ALT 35 U/L (12-78) 05/06/17 10:20 Alkaline Phosphatase 87 U/L (45-117) D 05/06/17 10:20 Total Protein 7.3 g/dl (6.4-8.2) 05/06/17 10:20 Albumin 3.8 g/dl (3.4-5.0) 05/06/17 10:20 Active Medications Generic Name Dose Route Start Last Admin Trade Name Freq PRN Reason Stop Dose Admin Carvedilol 25 mg 05/05/17 10:00 05/06/17 11:24 Coreg - PO 25 mg BID SIERRA Administration Chlordiazepoxide HCl 25 mg 05/04/17 21:19 Librium - PO 05/07/17 21:18 Q4H PRN WITHDRAWAL(CONT SUBST) Chlordiazepoxide HCl 15 mg 05/06/17 17:00 Librium - PO 05/07/17 05:01 [id number] SIERRA Folic Acid 1 mg 05/05/17 10:00 05/06/17 09:25 Folic Acid - PO 1 mg DAILY SIERRA Administration Multivitamins/Minerals/Vitamin C 1 tab 05/05/17 10:00 05/06/17 09:25 Tab-A-Vit - PO 1 tab DAILY SIERRA Administration Pantoprazole Sodium 40 mg 05/05/17 22:00 05/06/17 09:25 Protonix - PO 40 mg BID SIERRA Administration Potassium Chloride 20 meq 05/05/17 17:30 05/06/17 09:25 K-Dur - PO 20 meq BIDWM SIERRA Administration Ranitidine HCl 300 mg 05/05/17 00:30 05/05/17 22:29 Zantac - PO 300 mg HS SIERRA Administration Tamsulosin HCl 0.4 mg 05/05/17 10:00 05/06/17 09:25 Flomax - PO 0.4 mg DAILY SIERRA Administration Thiamine HCl 100 mg 05/05/17 12:00 05/06/17 09:25 Vitamin B1 - PO 100 mg DAILY SIERRA Administration IMAGING Renal US on 05/06: normal CT abd on 05/04: no acute pathology CXR on 05/04: normal finding ASSESSMENT/PLAN: 51 yo M with extensive h/o EtOH dependence with multiple admissions for related complications (pancreatitis, gastritis, liver cirrhosis) admitted to telemetry for alcohol withdrawal. Intractable nausea and vomiting - Resolved - 2/2 alcohol withdrawal vs. gastroenteritis - CIWA score = 3 - Complete librium taper protocol tomorrow - Cont. PPI, antiemetics, PO thiamine/folic acid/multivitamin Acute normocytic anemia - Dilutional vs. hematemesis - Cont. to monitor Acute kidney injury - Improving - Normal baseline - FeNa shows pre-renal - Cont. hydration Elevated bilirubin - Improving - Likely combination of both extra and intrahepatic etiology - Cont. to monitor Transaminitis - AST remains elevated likely 2/2 muscle breakdown from poor PO intake IDDM - BGM - Novolog sliding scale HTN - Cont. coreg - Hold EVELIN I HLD - Not on statin - LDL not at goal * see GI as outpatient to decided on starting statin FEN - IVF not indicated - Normal lytes - DM diet Prophylaxis - DVT: SCDs - GI: on home protonix Dispo - Discharge tomorrow after completing librium protocol Visit type - Emergency Visit Emergency Visit: No - New Patient This patient is new to me today: No - Critical Care Critical Care patient: No
[2017-05-06] MEDS: chlordiazePOXIDE 5 MG CAPSULE PO SCH ×2 (17:55→22:03)
[2017-05-06] MEDS: RANITIDINE HCL 150 MG TABLET (FP) PO SCH (22:03)
[2017-05-07] MEDS: chlordiazePOXIDE 5 MG CAPSULE PO SCH (06:15)
[2017-05-07] MEDS: POTASSIUM CHLORIDE TABS 20 MEQ TABLET.ER (FP) PO SCH (09:23)
[2017-05-07] MEDS: PANTOPRAZOLE 40 MG TABLET (FP) PO SCH (09:23)
[2017-05-07] MEDS: FOLIC ACID 1 MG TABLET (FP) PO SCH (09:23)
[2017-05-07] MEDS: TAMSULOSIN HCL 0.4 MG CAP.ER.24H (FP) PO SCH (09:23)
[2017-05-07] MEDS: CARVEDILOL 25 MG TABLET (FP) PO SCH (09:23)
[2017-05-07] MEDS: MULTIVITAMINS (DAILY MVI) TABLET (FP) PO SCH (09:23)
[2017-05-07] MEDS: THIAMINE HCL 100 MG TABLET (FP) PO SCH (09:23)
[2017-05-07 11:41] LABS: CALCIUM 9.3 mg/dL (8.5-10.1); COCKROFT - GAULT 79.8; CREATININE 1.3 mg/dL (0.7-1.3)
--- NOTE | 2017-05-07 12:57 | PN ---
Teaching Attending Note Name of Resident: Anil Valencia ATTENDING PHYSICIAN STATEMENT I saw and evaluated the patient. I reviewed the resident's note and discussed the case with the resident. I agree with the resident's findings and plan as documented. SUBJECTIVE:currently asymptomatic. denies CP, SOB,fever, chills, N/V/C/D OBJECTIVE: Last Vital Signs Temp Pulse Resp BP Pulse Ox 98 F 88 18 139/93 98 05/07/17 06:05/07/17 06:05/07/17 06:05/07/17 06:05/06/17 21:00 General NAD Abdomen soft NT/ND obese Extremities slight tremor on extension ASSESSMENT AND PLAN: 51yo M with PMH continuous ETOH dependence, ETOH cirrhosis, CAD s/p stent presented to the ER with intractable nausea and vomiting 1. Nausea and vomiting- viral gastroenteritis vs ETOH withdrawals. now resolved. tolerating regular diet. 2. Acute ETOH withdrawals- CIWA 0. completed librium taper this AM. refuses inpatient rehab at this time. counseled on need for sobriety and encouraged use of AA meetings. cont thiamine/folate/mvi. counseled in detail risks of continued ETOH use assoc with increased risk fo CAD and cirrhosis. 3. BEVERLY- likely dehydration. improved. avoid nephrotoxic. 4. ACute blood loss anemia- hemetemsis resolved. stable. informed need to f/u with GI as outpatient for repeat EGD. 5. AG acidosis- possible alcoholic ketoacidosis. resolved 6. CAD s/p stent- no signs of acs. cont coreg 7. HTN- re-start lisinopril 8. DM-unaware until now that patient is diabetic. reports that he takes lantus 10units BID. sugars are controlled here on random glucose. will d/c on novolog sliding scale and told to hold long acting insulin. informed pt to log sugars at home and how much insulin he takes and to bring to PMD appt on thursday for further adjustments. 9. DVT ppx- EAM. 10.d/c home
[2017-05-07 13:23] VITALS: BP 119/81; PULSE 86; TEMP 97.8
--- NOTE | 2017-05-07 14:04 | DS ---
Physical Exam: SUBJECTIVE: c/o productive cough with white sputum production. Denies fever, chills, headache, sore throat, n/v, chest pain or sob. OBJECTIVE: Vital Signs Period Temp Pulse Resp BP Sys/Mccoy Pulse Ox Last 24 Hr 97.5 F-98.3 F 80-88 18-18 119-153/81-93 98 PHYSICAL EXAM GENERAL: AAO x 3, appears appropriated to stated age, quiet, speak in full sentences, in no acute distress. EYES: PERRLA, sclera anicteric, conjunctiva clear. ENT: oropharynx clear without exudates, no erythema or exudate, moist mucous membranes, no enlarged lymph nodes LUNGS: CTAB HEART: RRR, S1, S2 without murmur, rub or gallop. ABDOMEN: Soft, slight tenderness in RUQ upon deep palpation, nondistended, normoactive bowel sounds, no guarding, no rebound, no hepatosplenomegaly EXTREMITIES: no edema. NEUROLOGICAL: Cranial nerves II through XII grossly intact. Normal speech. no tremors observed PSYCH: Normal mood, normal affect. SKIN: Warm, dry, normal turgor, no rashes or lesions noted LABS CBC, BMP 05/06/17 10:20 05/07/17 10:30 HOSPITAL COURSE: Date of Admission:05/04/17 51 yo M with extensive h/o EtOH dependence with multiple admissions for related complications (pancreatitis, gastritis, liver cirrhosis) admitted to telemetry for alcohol withdrawal. Librium protocol was started on the patient. He c/o intractable nausea and vomiting which have resolved with hydration and zofran, PPI and vitamin supplements. After admission, his H&H fluctuated but eventually stable. He sustained acute kidney injury but resolved with hydraiton. He also had transaminitis which has resolved. His blood glucose was controlled off insulin during hospital stay. He's instructed to stop taking lantus and use humalog on a sliding scale. He will follow up with GI for his chronic alcohol related gastritis and liver cirrhosis and primary doctor to optimizie his insulin regiment. Date of Discharge: 05/07/17 Minutes to complete discharge: 35 Discharge Summary Reason For Visit: ARF/WEAKNESS/ACUTE PANCREATITIS Current Active Problems Alcohol abuse (Chronic) Benign prostatic hyperplasia (Chronic) Diabetes (Chronic) HTN (hypertension) (Chronic) Hyperlipidemia (Chronic) IDDM (insulin dependent diabetes mellitus) (Chronic) Weakness (Chronic) Condition: Stable - Instructions Diet, Activity, Other Instructions: Instruction for continuing care: You were admitted to the hospital because you were having withdrawal symptoms from chronic alcohol dependence. You were treated accordingly and your hospital stay has been uneventful. You are now in stable condition to be discharged home. You need to do the following things: 1. Stop drinking 2. Stop using Lantus. 3. Check your blood sugar as usual but inject 2 units of Humalog (sent to your pharmacy) if your sugar is greater than 200, 4 units if > 250 but < 300, 6 units if >350 but < 400, 8 units if > 450 but < 500. Come in the ER if your blood sugar is over 500. 4. Follow up with stomach doctor (Dr. Ronald iGmenez) as soon as possible for endoscopy and your chronic liver problem 5. Follow up with your primary care doctor (Dr. Urias) to discuss the optimal insulin regiment for your diabetes Referrals: Vidal Urias MD [Primary Care Provider] - 1 Week iJmy Martinez MD [Staff Physician] - 1 Week Disposition: HOME - Home Medications Comprehensive Discharge Medication List: Ambulatory Orders Folic Acid - 1 mg PO DAILY #0 tablet 12/19/12 Multivitamins [Multivit ([facility])] 1 udtab PO DAILY #0 tab 12/19/12 Famotidine [Pepcid -] 40 mg PO DAILY 09/16/14 Tamsulosin HCl 0.4 mg PO DAILY 11/24/15 Carvedilol [Coreg -] 25 mg PO BID #60 tablet 10/25/16 Lisinopril [Prinivil] 10 mg PO DAILY #30 tablet 02/05/17 Pantoprazole Sodium [Protonix -] 40 mg PO BID #60 tab 02/05/17 Potassium Chloride [K-Dur -] 20 meq PO BIDWM #60 bag 02/05/17 Insulin (Novolog) [Novolog Vial] 1 units SQ AC #100 units 05/07/17 Lancets/Blood Glucose Strips [Fora [id number] Strp-Lnct] 1 each AC #90 combo..pkg 05/07/17 This patient is new to me today: No Emergency Visit: No Critical Care patient: No - Discharge Referral Referred to [facility] No
== END 2017-05-07 16:47 | disposition home or self-care (01) | DRG 282 ==
LOC: JER 15:28 → JERBED 18:15 → J4S 05-05 00:13 → J2W 05-05 09:17 → UNDODISIN 05-07 13:15
PROVIDERS: ADMIT Internal Medicine; ATTEND Internal Medicine
PROC: HZ2ZZZZ Detoxification Services for Substance Abuse Treatment (ICD-10-PCS; principal; 2017-05-04)
DX: K85.90 Acute pancreatitis without necrosis or infection, unspecified (principal); F10.230 Alcohol dependence with withdrawal, uncomplicated; N17.9 Acute kidney failure, unspecified; E86.0 Dehydration; D62 Acute posthemorrhagic anemia; E87.2 Acidosis; I10 Essential (primary) hypertension; E11.9 Type 2 diabetes mellitus without complications; Z79.4 Long term (current) use of insulin; I25.10 Atherosclerotic heart disease of native coronary artery without angina pectoris; Z98.61 Coronary angioplasty status; R11.2 Nausea with vomiting, unspecified; R74.0 Nonspecific elevation of levels of transaminase and lactic acid dehydrogenase [LDH]; E78.5 Hyperlipidemia, unspecified; E83.52 Hypercalcemia; E80.6 Other disorders of bilirubin metabolism; N40.0 Benign prostatic hyperplasia without lower urinary tract symptoms; R53.1 Weakness; I45.10 Unspecified right bundle-branch block
CPT/HCPCS: 36415; 71020-TC; 74176-TC; 76775-TC; 80048; 80053; 80061; 80307; 81003; 81015; 82009; 82248; 82436; 82550; 82570; 82803; 83690; 83721; 83735; 84100; 84133; 84300; 84484; 85025; 85027; 85610; 85730; 93005; 93010; 97116-GP; 97161-GP; 99284-25

== ENCOUNTER 2017-09-12 12:26 | Observation (INO) | payer OTHER ==
[2017-09-12 12:38] VITALS: BMI 33.9
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
[2017-09-12] MEDS ORDERED: ONDANSETRON 4 MG/2 ML VIAL IVPUSH ONE ×2 (12:50→19:28)
[2017-09-12] MEDS ORDERED: SODIUM CHLORIDE 1,000 ML IV STA (12:50)
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
[2017-09-12] MEDS ORDERED: ONDANSETRON 4 MG/2 ML VIAL ONE ×2 (13:10→21:06)
[2017-09-12] MEDS ORDERED: FOLIC ACID 5 MG/1 ML IVPB ONE (13:22)
[2017-09-12] MEDS ORDERED: THIAMINE HCL 200 MG/2 ML VIAL IVPB ONE (13:22)
[2017-09-12] MEDS ORDERED: MULTIVIT INJ. ADULT COMBO WITH VIT K 1 COMBO 10 ML VIAL IV ONE (13:27)
[2017-09-12 14:23] LABS: MCH 29.9 pg (25.7-33.7); MCHC 34.1 g/dl (32.0-35.9); MEAN CELL VOLUME 87.8 fl (80-96); MEAN PLT VOLUME 6.8 fl (7.5-11.1); PLATELET COUNT 193 K/MM3 (134-434); RDW 14.6 % (11.9-15.9); WHITE BLOOD COUNT 6.9 K/mm3 (4.0-10.0)
[2017-09-12] MEDS ORDERED: FOLIC ACID IVPB ONE (14:30)
[2017-09-12] MEDS ORDERED: SODIUM CHLORIDE IVPB ONE (14:30)
[2017-09-12] MEDS ORDERED: [UNRECOGNIZED DRUG - OTHER] IVPB ONE (14:30)
[2017-09-12] MEDS ORDERED: [UNRECOGNIZED DRUG - OTHER] IVPB ONE (14:30)
[2017-09-12] MEDS ORDERED: THIAMINE HCL IVPB ONE ×2 (14:30)
[2017-09-12] MEDS ORDERED: MULTIVIT IVPB ONE ×2 (14:30)
[2017-09-12 14:40] LABS: INR 1.04 (0.82-1.09); PROTHROMBIN TIME (PATIENT) 11.7 SEC (9.98-11.88)
[2017-09-12 17:57] VITALS: BP 155/77; PULSE 80; TEMP 98.6
[2017-09-12 19:01] LABS: ALBUMIN 3.5 g/dl (3.4-5.0); ALK PHOS 62 U/L (45-117); ANION GAP 7 (8-16); BILIRUBIN,TOTAL 0.8 mg/dL (0.2-1.0); CALCIUM 8.2 mg/dL (8.5-10.1); CO2 31 mmol/L (21-32); CREATININE 0.9 mg/dL (0.7-1.3); GLUCOSE,RANDOM 229 mg/dL (74-106); MAGNESIUM 1.8 mg/dL (1.8-2.4); SGOT/AST 21 U/L (15-37); SGPT/ALT 27 U/L (12-78); TOT PROT 6.9 g/dl (6.4-8.2)
[2017-09-12] MEDS ORDERED: MAGNESIUM SULF 50% (8.12 MEQ/2 ML-1 GM VIAL) IVPB ONE (19:07)
[2017-09-12] MEDS ORDERED: POTASSIUM CHLORIDE TABS 20 MEQ TABLET.ER (FP) PO ONE ×2 (19:08→21:05)
[2017-09-12] MEDS ORDERED: chlordiazePOXIDE HCL 25 MG CAPSULE PO ONE (19:26)
--- NOTE | 2017-09-12 19:37 | PDOC ---
*Physical Exam - Vital Signs Last Vital Signs Temp Pulse Resp BP Pulse Ox 98.6 F 80 18 155/77 99 09/12/17 16:00 09/12/17 16:00 09/12/17 16:00 09/12/17 16:00 09/12/17 16:00 ED Treatment Course - LABORATORY CBC & Chemistry Diagram: 09/12/17 12:50 09/12/17 18:35 - ADDITIONAL ORDERS Additional order review: Laboratory Results 09/12/17 09/12/17 09/12/17 18:35 17:45 14:00 PT with INR INR PTT (Actin FS) Sodium 141 Cancelled Potassium 3.4 L D Cancelled Chloride 103 Cancelled Carbon Dioxide 31 Cancelled Anion Gap 7 L Cancelled BUN 16 D Cancelled Creatinine 0.9 D Cancelled Creat Clearance w eGFR > 60 Cancelled Random Glucose 229 H D Cancelled Calcium 8.2 L Cancelled Magnesium 1.8 Cancelled Total Bilirubin 0.8 Cancelled AST 21 D Cancelled ALT 27 D Cancelled Alkaline Phosphatase 62 D Cancelled Total Protein 6.9 Cancelled Albumin 3.5 Cancelled Lipase 172 Cancelled Stool Occult Blood Negative Alcohol, Quantitative 09/12/17 09/12/17 13:18 13:15 PT with INR 11.70 INR 1.04 PTT (Actin FS) 31.0 Sodium Potassium Chloride Carbon Dioxide Anion Gap BUN Creatinine Creat Clearance w eGFR Random Glucose Calcium Magnesium Total Bilirubin AST ALT Alkaline Phosphatase Total Protein Albumin Lipase Stool Occult Blood Alcohol, Quantitative 56.6 H* 09/12/17 12:50 RBC 4.88 D MCV 87.8 MCHC 34.1 RDW 14.6 MPV 6.8 L - Medications Given in the ED: ED Medications Discontinued Medications Generic Name Dose Route Start Last Admin Trade Name Freq PRN Reason Stop Dose Admin Sodium Chloride 1,000 mls @ 1,000 mls/hr 09/12/17 12:50 09/12/17 14:35 Normal Saline - IV 09/12/17 13:49 1,000 mls/hr ASDIR STA Administration Thiamine HCl 100 mg/ 1,011.2 mls @ 1,000 mls/hr 09/12/17 14:30 09/12/17 15:42 Multivitamins/Minerals 10 ml/ IVPB 09/12/17 15:30 1,000 mls/hr Folic Acid 1 mg/ Sodium ONCE ONE Administration Chloride Ondansetron HCl 4 mg 09/12/17 12:50 09/12/17 14:01 Zofran Injection IVPUSH 09/12/17 12:51 4 mg ONCE ONE Administration Medical Decision Making - Medical Decision Making 09/12/17 19:34 Received signout on this 52-year-old male chronic alcoholic well known to this institution who presented with various nonspecific complaints, including nausea/ vomiting. Was well-appearing, plan at sign out was to check electrolytes, initially hemolyzed, and then likely discharge. Placed on observation for possible withdrawal symptoms and ruling out acute electrolyte abnormality. Chemistries taken several times secondary to hemolysis, ultimately within normal limits with mild hypokalemia and hypomagnesemia. Ordered repletion. Patient is well-appearing, no acute abnormalities were red flags on exam. No evidence of acute withdrawal but given time in ED given prophylaxis with Librium while receiving his electrolyte repletion. Spitting up clear sputum but no vomiting. Plan remains for d/c home after ongoing monitoring, doing well thus far 7h into ED stay. *DC/Admit/Observation/Transfer Diagnosis at time of Disposition: Alcohol abuse
[2017-09-12] MEDS ORDERED: chlordiazePOXIDE HCL 25 MG CAPSULE ONE (21:05)
[2017-09-12] MEDS ORDERED: MAGNESIUM SULF 50% (8.12 MEQ/2 ML-1 GM VIAL) ONE (21:06)
[2017-09-12] MEDS ORDERED: LORazepam 2 MG/ML SDV VIAL ONE (21:06)
--- NOTE | 2017-09-13 10:58 | EKG ---
Test Reason : Blood Pressure : / mmHG Vent. Rate : 074 BPM Atrial Rate : 074 BPM P-R Int : 196 ms QRS Dur : 152 ms QT Int : 422 ms P-R-T Axes : 022 -14 007 degrees QTc Int : 468 ms NORMAL SINUS RHYTHM RIGHT BUNDLE BRANCH BLOCK ABNORMAL ECG WHEN COMPARED WITH ECG OF 04-MAY-2017 15:46, NO SIGNIFICANT CHANGE WAS FOUND Confirmed by VESNA KIDD MD ([id number]) on 09/13/2017 10:58:44 AM Referred By: Confirmed By:VESNA KIDD MD
== END 2017-09-12 23:21 | disposition home or self-care (01) ==
LOC: JER 12:26 → JERBED 19:37
PROVIDERS: ADMIT Internal Medicine; ATTEND Internal Medicine
PROC: 3E033GC Introduction of Other Therapeutic Substance into Peripheral Vein, Percutaneous Approach (ICD-10-PCS; principal; 2017-09-12)
PROC: 3E0337Z Introduction of Electrolytic and Water Balance Substance into Peripheral Vein, Percutaneous Approach (ICD-10-PCS; 2017-09-12)
DX: F10.10 Alcohol abuse, uncomplicated (principal); R11.11 Vomiting without nausea; I10 Essential (primary) hypertension; I48.91 Unspecified atrial fibrillation; I25.10 Atherosclerotic heart disease of native coronary artery without angina pectoris; E78.5 Hyperlipidemia, unspecified; E11.9 Type 2 diabetes mellitus without complications; K74.60 Unspecified cirrhosis of liver; Z79.4 Long term (current) use of insulin; Z95.5 Presence of coronary angioplasty implant and graft; Z87.891 Personal history of nicotine dependence
CPT/HCPCS: 36415; 70450-TC; 71010-TC; 80053; 80307; 82272; 83690; 83735; 85027; 85610; 85730; 93005; 93010; 96361; 96365; 96375; 96376; 99284-25; G0378

== ENCOUNTER 2018-07-23 17:32 | Inpatient (IN) | payer OTHER ==
[2018-07-23] MEDS ORDERED: ONDANSETRON 4 MG/2 ML VIAL IVPUSH ONE (17:47)
[2018-07-23] MEDS ORDERED: diazePAM CARPU-JECT 10 MG/2 ML DISP.SYRIN IVPUSH ONE (17:54)
[2018-07-23] MEDS ORDERED: FOLIC ACID INJECTION - 1 MG, THIAMINE HCL 100 MG, MULTIVIT INJECTION ADULT 10 ML in SOD... IVPB ONE ×2 (17:54→20:15)
--- NOTE | 2018-07-23 17:54 | PDOC ---
History of Present Illness - General History Source: Patient - History of Present Illness Presenting Symptoms: Chest Pain, Nausea, Vomiting Timing/Duration: reports: resolved prior to arrival <Dequan Cancino - Last Filed: 07/23/18 19:04> <Keara Garcia - Last Filed: 07/23/18 20:15> - General Chief Complaint: Chest Pain Stated Complaint: CHEST PAIN Time Seen by Provider: 07/23/18 17:35 Past History - Past Medical History Anemia: No Asthma: No Cancer: No Cardiac Disorders: Yes (afib, cardiac stent 2009) CVA: No COPD: No CHF: No Dementia: No Diabetes: Yes GI Disorders: No Disorders: No HTN: Yes Hypercholesterolemia: Yes Liver Disease: Yes Seizures: No Thyroid Disease: No - Surgical History Abdominal Surgery: No Appendectomy: No Cardiac Surgery: Yes (stent) Cholecystectomy: No Lung Surgery: No Neurologic Surgery: No Orthopedic Surgery: No - Suicide/Smoking/Psychosocial Hx Smoking Status: Yes Smoking History: Never smoked Have you smoked in the past 12 months: No Number of Cigarettes Smoked Daily: 0 If you are a former smoker, when did you quit?: 2004 Cigars Per Day: 0 Information on smoking cessation initiated: No Hx Alcohol Use: Yes (2 glasses of vodka daily) Drug/Substance Use Hx: No Substance Use Type: Alcohol Hx Substance Use Treatment: Yes <Dequan Cancino - Last Filed: 07/23/18 19:04> <Keara Garcia - Last Filed: 07/23/18 20:15> - Past Medical History Allergies/Adverse Reactions: Allergies Allergy/AdvReac Type Severity Reaction Status Date / Time No Known Allergies Allergy Verified 09/12/17 12:36 Home Medications: Ambulatory Orders Folic Acid - 1 mg PO DAILY #0 tablet 12/19/12 Multivitamins [Multivit ([facility] Formulary)] 1 udtab PO DAILY #0 tab 12/19/12 Famotidine [Pepcid -] 40 mg PO DAILY 09/16/14 Tamsulosin HCl 0.4 mg PO DAILY 11/24/15 Carvedilol [Coreg -] 25 mg PO BID #60 tablet 10/25/16 Lisinopril [Prinivil] 10 mg PO DAILY #30 tablet 02/05/17 Pantoprazole Sodium [Protonix -] 40 mg PO BID #60 tab 02/05/17 Potassium Chloride [K-Dur -] 20 meq PO BIDWM #60 bag 02/05/17 Insulin (Novolog) [Novolog Vial] 1 units SQ AC #100 units 05/07/17 Lancets/Blood Glucose Strips [Fora [id number] Strp-Lnct] 1 each AC #90 combo..pkg 05/07/17 Cardiac Specific PMH - Complaint Specific PMHX Abdominal Aortic Aneurysm: No Angina: No Cardiac Arrhythmia: Yes Cardiac Stent: Yes Pacemaker: No Valvular Heart Disease: No Peripheral Vascular Disease: No <Dequan Cancino - Last Filed: 07/23/18 19:04> Review of Systems - Review of Systems Constitutional: No: Chills, Fever Respiratory: No: Cough, Shortness of Breath Cardiac (ROS): Yes: Chest Pain. No: Lightheadedness, Palpitations ABD/GI: Yes: Nausea, Vomiting. No: Blood Streaked Bowels, Abdominal cramping, Tarry Stools : No: Dysuria Neurological: No: Dizziness <Dequan Cancino - Last Filed: 07/23/18 19:04> *Physical Exam - Physical Exam General Appearance: Yes: Appropriately Dressed HEENT: positive: Normal Voice Neck: positive: Supple Respiratory/Chest: positive: Lungs Clear, Normal Breath Sounds. negative: Respiratory Distress Cardiovascular: positive: Regular Rate, S1, S2 Gastrointestinal/Abdominal: positive: Soft. negative: Tender Integumentary: positive: Dry, Warm Neurologic: positive: Fully Oriented, Alert, Normal Mood/Affect <Dequan Cancino - Last Filed: 07/23/18 19:04> <Keara Garcia - Last Filed: 07/23/18 20:15> - Vital Signs Last Vital Signs Temp Pulse Resp BP Pulse Ox 97.5 F L 83 22 162/86 96 07/23/18 17:34 07/23/18 18:57 07/23/18 18:57 07/23/18 18:57 07/23/18 18:57 - Physical Exam Comments: 07/23/18 18: Middle-aged gentleman lying on stretcher, awake and alert with generalized tremors (Dequan Cancino) Heart Score/ECG Review <Dequan Cancino - Last Filed: 07/23/18 19:04> <Keara Garcia - Last Filed: 07/23/18 20:15> - ECG Intrepretation Comment:: 07/23/18 18:14 EKG w/ PVCs. RBBB and TWI in lateral leads old compared to EKG 09/08 (Karen Cancino) ED Treatment Course - LABORATORY CBC & Chemistry Diagram: 07/23/18 18:10 07/23/18 18:10 <Dequan Cancino - Last Filed: 07/23/18 19:04> - LABORATORY CBC & Chemistry Diagram: 07/23/18 18:10 07/23/18 18:10 <Keara Garcia - Last Filed: 07/23/18 20:15> - ADDITIONAL ORDERS Additional order review: Laboratory Results 07/23/18 07/23/18 18:10 18:10 PT with INR 12.10 INR 1.07 Sodium 139 Potassium 3.8 Chloride 98 Carbon Dioxide 27 Anion Gap 14 BUN 8 Creatinine 0.6 L Creat Clearance w eGFR > 60 Random Glucose 104 D Calcium 9.4 Total Bilirubin 1.5 H AST 144 H D ALT 93 H D Alkaline Phosphatase 91 Creatine Kinase 186 Creatine Kinase Index 0.5 CK-MB (CK-2) 1.03 Troponin I < 0.02 Total Protein 8.5 H Albumin 4.3 Lipase 150 07/23/18 18:10 RBC 5.47 MCV 89.1 MCHC 34.0 RDW 16.5 H MPV 7.3 L Neutrophils % 62.7 D Lymphocytes % 27.1 D Monocytes % 7.8 Eosinophils % 1.0 Basophils % 1.4 - Medications Given in the ED: ED Medications Discontinued Medications Generic Name Dose Route Start Last Admin Trade Name Freq PRN Reason Stop Dose Admin Diazepam 10 mg 07/23/18 17:54 07/23/18 18:35 Valium Injection - IVPUSH 07/23/18 17:55 Not Given ONCE ONE Lorazepam 2 mg 07/23/18 18:28 07/23/18 18:35 Ativan Injection - IVPUSH 07/23/18 18:29 2 mg ONCE ONE Administration Ondansetron HCl 4 mg 07/23/18 17:47 07/23/18 18:29 Zofran Injection IVPUSH 07/23/18 17:48 4 mg ONCE ONE Administration Medical Decision Making <Dequan Cancino - Last Filed: 07/23/18 19:04> <Keara Garcia - Last Filed: 07/23/18 20:15> - Medical Decision Making 07/23/18 17:57 53-year-old male, history of insulin-dependent diabetes, hypertension, hyperlipidemia, CAD with stents, Afib, not currently on blood thinners 2/2 recurrent GIB, chronic alcohol abuse, complicated by liver cirrhosis, duodenitis , gastritis, pancreatitis, s/p leodan, here with nausea, vomiting that started to 3 days ago. Also complaining of tremors. This a.m. developed vague, left- sided chest, non-radiating chest pain for 10 minutes that was mild in intensity per patient, with no masturbating or alleviating factors. No shortness of breath or diaphoresis. Unsure if pain similar to CP prior to prior stents. Denies abdominal pain, hematemesis, change in bowel movements, melena or bright red blood per rectum. Patient states he feels like he is in withdrawal. Last alcohol intake was 3 days ago. No seizures. States he has not eaten in 2 days See exam Constellation of symptoms m/l 2/2 ETOH withdrawal given hx Stable but tremulous in ER, rest of exam unremarkable -banana bag -valium -ekg -labs -anticipate admission 07/23/18 18:29 No Valium inhouse per pharmacy. Will give Ativan over Librium as the latter can cause over-sedation in patient with advanced liver disease. 07/23/18 19:04 Pt signed out to night PA pending rest of workup and admission (Dequan Cancino) 07/23/18 20:14 Chest x-ray appears unremarkable at this time. Case discussed with Uli Ordoñez PGY-I, for symphony. Dr. Sanchez accepts to [facility] for admission given chest pain in the setting of withdrawal. Aspirin ordered a this time. (Keara Garcia) *DC/Admit/Observation/Transfer <Dequan Cancino - Last Filed: 07/23/18 19:04> - Discharge Dispostion Decision to Admit order: Yes <Keara Garcia - Last Filed: 07/23/18 20:15> Diagnosis at time of Disposition: Chest pain Qualifiers: Chest pain type: unspecified Qualified Code(s): R07.9 - Chest pain, unspecified Alcohol withdrawal Qualifiers: Complication of substance-induced condition: with unspecified complication Qualified Code(s): F10.239 - Alcohol dependence with withdrawal, unspecified - Discharge Dispostion Condition at time of disposition: Stable Decision to Admit order Date/Time: Decision to Admit Order Category Date Time Status Decision to Admit to Hospital Routine Admission 07/23/18 19:50 Active
[2018-07-23 18:16] LABS: BASO % 1.4 % (0-2.0); HEMATOCRIT 48.7 % (35.4-49); HEMOGLOBIN 16.6 GM/dL (11.7-16.9); LYMPH % 27.1 % (8-40); MCH 30.3 pg (25.7-33.7); MEAN CELL VOLUME 89.1 fl (80-96); MEAN PLT VOLUME 7.3 fl (7.5-11.1); MONO % 7.8 % (3.8-10.2); NEUT % 62.7 % (42.8-82.8); PLATELET COUNT 107 K/MM3 (134-434); RBC 5.47 M/mm3 (4.00-5.60); RDW 16.5 % (11.9-15.9); WHITE BLOOD COUNT 5.4 K/mm3 (4.0-10.0)
[2018-07-23] MEDS ORDERED: ONDANSETRON 4 MG/2 ML VIAL ONE (18:25)
[2018-07-23 18:27] LABS: INR 1.07 (0.83-1.09); PROTHROMBIN TIME (PATIENT) 12.1 SEC (9.7-13.0)
[2018-07-23] MEDS ORDERED: LORazepam 2 MG/ML SDV VIAL ONE (18:30)
[2018-07-23 18:36] LABS: ALBUMIN 4.3 g/dl (3.4-5.0); ANION GAP 14 MMOL/L (8-16); BILIRUBIN,TOTAL 1.5 mg/dL (0.2-1.0); BLOOD UREA NITROGEN 8 mg/dL (7-18); CALCIUM 9.4 mg/dL (8.5-10.1); CHLORIDE 98 mmol/L (98-107); CO2 27 mmol/L (21-32); CREATININE 0.6 mg/dL (0.7-1.3); GLUCOSE,RANDOM 104 mg/dL (74-106); LIPASE 150 U/L (73-393); POTASSIUM 3.8 mmol/L (3.5-5.1); SGOT/AST 144 U/L (15-37); SGPT/ALT 93 U/L (12-78); SODIUM 139 mmol/L (136-145); TOT PROT 8.5 g/dl (6.4-8.2)
[2018-07-23 18:38] LABS: ALK PHOS 91 U/L (45-117)
--- NOTE | 2018-07-23 19:45 | PN ---
Teaching Attending Note Name of Resident: Lenard Ordoñez ATTENDING PHYSICIAN STATEMENT I saw and evaluated the patient. I reviewed the resident's note and discussed the case with the resident. I agree with the resident's findings and plan as documented. SUBJECTIVE: Patient is a 53 year old man with history of insulin-treated DM, hypertension, hyperlipidemia, CAD with stents, Afib (not on AC), chronic alcohol abuse, cirrhosis, duodenitis, gastritis, pancreatitis, and cholecystectomy presents with nausea and vomiting for 3 days. Also complaining of tremors and this morning developed vague, left-sided chest pain for 10 minutes. Pain was non- radiating, of mild intensity with no aggravating or alleviating factors. He denies SOB or diaphoresis. Unsure if pain similar to CP prior to prior stents. Denies abdominal pain, hematemesis, change in bowel movements, melena or bright red blood per rectum. Patient states he feels like he is in withdrawal. Last alcohol intake was 3 days ago. No seizures. States he has not eaten in 2 days OBJECTIVE: Alert Vital Signs Period Temp Pulse Resp BP Sys/Mccoy Pulse Ox Last 24 Hr 97.5 F 83-85 18-22 162-171/86-95 96-99 HEENT: No Jaundice, eye redness or discharge, PERRLA, EOMI. Normocephalic, atraumatic. External ears are normal and hearing is grossly intact. No nasal discharge. Neck: Supple, nontender. No palpable adenopathy or thyromegaly. No JVD Chest: Good effort. Clear to auscultation and percussion. Heart: Regular. No S3, rub or murmur Abdomen: Distended, soft, diffuse tenderness and no HSM. No rebound or guarding. Normoactive bowel sounds. Ext: Peripheral pulses intact. No leg edema. Skin: Warm and dry. No petechiae, rash or ecchymosis. Neuro: Alert. Oriented x3. CN 2-12 grossly intact. Sensation grossly intact in all four extremities and DTR are symmetric. Current Medications Generic Name Dose Route Start Last Admin Trade Name Freq PRN Reason Stop Dose Admin Folic Acid 1 mg/ Thiamine HCl 1,000 mls @ 125 mls/hr 07/23/18 17:54 07/23/18 18:35 100 mg/ Multivitamins/Minerals IVPB 07/24/18 01:53 125 mls/hr 10 ml/ Sodium Chloride ONCE ONE Administration Home Medications Medication Instructions Recorded Folic Acid - 1 mg PO DAILY #0 tablet 12/19/12 Multivitamins [Multivit ([facility] 1 udtab PO DAILY #0 tab 12/19/12 Formulary)] Famotidine [Pepcid -] 40 mg PO DAILY 09/16/14 Tamsulosin HCl 0.4 mg PO DAILY 11/24/15 Carvedilol [Coreg -] 25 mg PO BID #60 tablet 10/25/16 Lisinopril [Prinivil] 10 mg PO DAILY #30 tablet 02/05/17 Pantoprazole Sodium [Protonix -] 40 mg PO BID #60 tab 02/05/17 Potassium Chloride [K-Dur -] 20 meq PO BIDWM #60 bag 02/05/17 Insulin (Novolog) [Novolog Vial] 1 units SQ AC #100 units 05/07/17 Lancets/Blood Glucose Strips [Fora 1 each AC #90 combo..pkg 05/07/17 [id number] Strp-Lnct] Abnormal Lab Results 07/23/18 07/23/18 18:10 18:10 RDW 16.5 H Plt Count 107 L D MPV 7.3 L Creatinine 0.6 L Total Bilirubin 1.5 H AST 144 H D ALT 93 H D Total Protein 8.5 H ASSESSMENT AND PLAN: 1. Chest pain - Troponin is negative. EKG shows nonspecific T wave changes that are old. Observe on telemetry to rule out ACS. Get ECHO, fasting lipid profile and consult cardiology. Has history of afib but now in NSR. Not on AC due to GI bleeding. 2. Alcohol withdrawal/abuse - Abdominal distension likely due to ascites. No gross evidence of peritonitis. Will get CT abd/pelvis and do therapeutic/ diagnostic paracentesis. Trend LFTs. Consult GI. Implement CIWA ativan alcohol withdrawal protocol and fall precautions. Treat with thiamine and folic acid and monitor electrolytes (Ca,Mg,K,P). Already getting banana bag. Internship Coordinator patient about abstaining from alcohol and refer to alcohol detox upon discharge. 3. DM - For now, we will hold the home diabetes drugs and implement sliding scale insulin regimen. Provide comprehensive diabetes care with patient teaching and counseling about the importance of euglycemia, eye care and foot care. 4. Obesity - Will provide patient all the necessary assistance , counseling and positive reinforcement to facilitate weight loss. Consult [employer]. 5. DVT prophylaxis - Lovenox 40 mg SQ q 24 hours. 6. Advance directives - Full code
[2018-07-23] MEDS ORDERED: ASPIRIN 81 MG CHEWABLE TABLETS PO ONE (20:02)
[2018-07-23] MEDS ORDERED: ASPIRIN 325 MG TABLET ONE (20:17)
[2018-07-23] MEDS ORDERED: ENOXAPARIN NA (PORCINE) 40 MG/0.4 ML DISP.SYRIN SQ ONE (20:24)
--- NOTE | 2018-07-23 20:27 | HP ---
CHIEF COMPLAINT: nausea/vomiting/chest pain PCP: HISTORY OF PRESENT ILLNESS: 53 y/o M w/ PMHx IDDM, CAD s/p stents, Afib (no AC), HTN, HLD EtOH abuse, cirrhosis, duodenitis, gastritis, pancreatitis, presents with nausea and NBNB vomiting x 3 days, tremors x 1 day, 10 minute episode of left-sided chest pain ( non-radiating, mild). Denies diaphoresis, dyspnea, abd pain, MEJIA, blood in stool. Last intake of EtOH 3 days [employer]. No intake of food x 2 days. Pt feels he is in withdrawal. ER course was notable for: (1) Negative troponin x 1 (2) EKG w/ old t-wave inversions (3) 1 dose ativan given, 1 dose folate given Recent Travel: PAST MEDICAL HISTORY: as above PAST SURGICAL HISTORY: cholecystectomy Social History: Smoking: Alcohol: chronic abuse Drugs: Family History: Allergies No Known Allergies Allergy (Verified 09/12/17 12:36) HOME MEDICATIONS: Home Medications Medication Instructions Recorded Folic Acid - 1 mg PO DAILY #0 tablet 12/19/12 Multivitamins [Multivit ([facility] 1 udtab PO DAILY #0 tab 12/19/12 Formulary)] Famotidine [Pepcid -] 40 mg PO DAILY 09/16/14 Tamsulosin HCl 0.4 mg PO DAILY 11/24/15 Carvedilol [Coreg -] 25 mg PO BID #60 tablet 10/25/16 Lisinopril [Prinivil] 10 mg PO DAILY #30 tablet 02/05/17 Pantoprazole Sodium [Protonix -] 40 mg PO BID #60 tab 02/05/17 Potassium Chloride [K-Dur -] 20 meq PO BIDWM #60 bag 02/05/17 Insulin (Novolog) [Novolog Vial] 1 units SQ AC #100 units 05/07/17 Lancets/Blood Glucose Strips [Fora 1 each AC #90 combo..pkg 05/07/17 [id number] Strp-Lnct] REVIEW OF SYSTEMS As per HPI PHYSICAL EXAMINATION Vital Signs - 24 hr 07/23/18 07/23/18 17:34 18:57 Temperature 97.5 F L Pulse Rate 85 Pulse Rate [ 83 Left Radial] Respiratory 18 22 Rate Blood Pressure 171/95 Blood Pressure 162/86 [Left Arm] O2 Sat by Pulse 99 96 Oximetry (%) GENERAL: A&Ox3 HEAD: NC/AT EYES: PERRLA, EOMI, anicteric EARS, NOSE, THROAT: dry mucous membranes NECK: Normal range of motion, supple without lymphadenopathy, JVD, or masses. LUNGS: Breath sounds equal, clear to auscultation bilaterally. No wheezes, and no crackles. No accessory muscle use. HEART: Regular rate and rhythm, normal S1 and S2 without murmur, rub or gallop. ABDOMEN: Soft, minimally TTP, Grossly distended, tympanitic, no shifting dullness appreciated MUSCULOSKELETAL: Normal range of motion at all joints. No bony deformities or tenderness. +CVA tenderness. UPPER EXTREMITIES: 2+ pulses, warm, well-perfused. No cyanosis. No clubbing. No peripheral edema. LOWER EXTREMITIES: 2+ pulses, warm, well-perfused. No calf tenderness. No peripheral edema. NEUROLOGICAL: Cranial nerves II-XII intact. Normal speech. Normal gait. PSYCHIATRIC: Cooperative. Good eye contact. Appropriate mood and affect. SKIN: Warm, dry, normal turgor, no rashes or lesions noted, normal capillary refill. Laboratory Results - last 24 hr 07/23/18 07/23/18 07/23/18 18:10 18:10 18:10 WBC 5.4 RBC 5.47 Hgb 16.6 Hct 48.7 MCV 89.1 MCH 30.3 MCHC 34.0 RDW 16.5 H Plt Count 107 L D MPV 7.3 L Absolute Neuts (auto) 3.4 Neutrophils % 62.7 D Lymphocytes % 27.1 D Monocytes % 7.8 Eosinophils % 1.0 Basophils % 1.4 Nucleated RBC % 0 PT with INR 12.10 INR 1.07 Sodium 139 Potassium 3.8 Chloride 98 Carbon Dioxide 27 Anion Gap 14 BUN 8 Creatinine 0.6 L Creat Clearance w eGFR > 60 Random Glucose 104 D Calcium 9.4 Total Bilirubin 1.5 H AST 144 H D ALT 93 H D Alkaline Phosphatase 91 Creatine Kinase 186 Creatine Kinase Index 0.5 CK-MB (CK-2) 1.03 Troponin I < 0.02 Total Protein 8.5 H Albumin 4.3 Lipase 150 ASSESSMENT/PLAN: 53 y/o M w/ DM, HTN, HLD, CAD s/p stents, Afib (no AC), EtOH abuse, cirrhosis, gastritis, pancreatitis, duodenitis, cholecystectomy p/w n/v x 3 days, tremors, chest pain. Admitted for EtOH withdrawal and r/o ACS. #EtOH withdrawal -Ativan protocol as Pt is cirrhotic: 2mg q6h x 4 doses, 1mg q6h 8 doses -Banana Bag -PO thiamine -PO folate -stat Mg -stat Phos -monitor lytes -counseling for EtOH dependence -unable to score CIWA as Pt received Ativan prior to encounter -fall precautions #abd distention/CVA tenderness -CT a/p w/o #CP -trops neg x1, trending -EKG benign -CXR pending #DM -SSI -BGM ACHS -hold home meds #DVT PPx -Lovenox 40sq #FEN -no IVF -monitor lytes -diabetic diet #dispo -admit to tele Visit type - Emergency Visit Emergency Visit: Yes Care time: The patient presented to the Emergency Department on the above date and was hospitalized for further evaluation of their emergent condition. - New Patient This patient is new to me today: Yes Date on this admission: 07/23/18 - Critical Care Critical Care patient: No Hospitalist Screening - Colonoscopy Questionnaire Colonoscopy Questionnaire: Colonoscopy Questionnaire - Patient: 50 - 75 years old and never had a screening colonoscopy: Unknown History of colon or rectal polyps, or CA: Unknown History of IBD, Crohn's disease or UC: Unknown History of abdominal radiation therapy as a child: Unknown - Relative: 1 with colon or rectal CA, or polyps at age 60 or younger: Unknown Colon or rectal CA diagnosed at age 45 or younger: Unknown Multiple relatives with colon or rectal CA: Unknown - Outcome: Screening Result: Negative Screen
[2018-07-23] MEDS: ENOXAPARIN NA (PORCINE) 40 MG/0.4 ML DISP.SYRIN SQ SCH (20:36)
[2018-07-23 22:00] LABS: URINE APPEARANCE CLEAR; URINE BILIRUBIN NEGATIVE (<2.0 mg/dL); URINE COLOR AMBER; URINE GLUCOSE (UA) 3+ (NEGATIVE); URINE KETONE 2+ (NEGATIVE); URINE LEUK ESTERASE NEGATIVE (NEGATIVE); URINE NITRITE NEGATIVE (NEGATIVE); URINE UROBILINOGEN NEGATIVE mg/dL (0.2-1.0)
[2018-07-23 22:03] LABS: URINE PROTEIN 3+ (NEGATIVE)
[2018-07-23 22:06] LABS: URINE BACTERIA RARE /hpf (NONE SEEN); URINE HYALINE CAST 1 /lpf; URINE MUCUS FEW
[2018-07-23 22:20] LABS: MAGNESIUM 1.3 mg/dL (1.8-2.4)
[2018-07-23 23:43] VITALS: BMI 34.4
[2018-07-24] MEDS: LORazepam 2 MG/ML SDV VIAL IVPUSH SCH ×2 (00:36→06:22)
[2018-07-24] MEDS ORDERED: MAGNESIUM SULF 50% (8.12 MEQ/2 ML-1 GM VIAL) IVPB ONE (03:03)
[2018-07-24 07:22] LABS: BASO % 1.4 % (0-2.0); EOS % 1.9 % (0-4.5); HEMATOCRIT 46.4 % (35.4-49); HEMOGLOBIN 15.9 GM/dL (11.7-16.9); LYMPH % 34.3 % (8-40); MCH 30.1 pg (25.7-33.7); MCHC 34.2 g/dl (32.0-35.9); MEAN PLT VOLUME 7.2 fl (7.5-11.1); MONO % 10.6 % (3.8-10.2); NEUT % 51.8 % (42.8-82.8); PLATELET COUNT 93 K/MM3 (134-434); RBC 5.27 M/mm3 (4.00-5.60); RDW 17.1 % (11.9-15.9); WHITE BLOOD COUNT 3.9 K/mm3 (4.0-10.0)
--- NOTE | 2018-07-24 07:57 | PN ---
Teaching Attending Note Name of Resident: Brant Lubin ATTENDING PHYSICIAN STATEMENT I saw and evaluated the patient. I reviewed the resident's note and discussed the case with the resident. I agree with the resident's findings and plan as documented. SUBJECTIVE: Patient is comfortable, with mild tremor. He knows that he should not be drinking. He said he quit 6 months ago but restarted drinking. OBJECTIVE: Vital Signs Temperature 98.3 F 07/24/18 06:00 Pulse Rate 82 07/24/18 06:00 Respiratory Rate 18 07/24/18 06:00 Blood Pressure 143/83 07/24/18 06:00 O2 Sat by Pulse Oximetry (%) 99 07/23/18 23:27 CBCD WBC 3.9 K/mm3 (4.0-10.0) L 07/24/18 06:25 RBC 5.27 M/mm3 (4.00-5.60) 07/24/18 06:25 Hgb 15.9 GM/dL (11.7-16.9) 07/24/18 06:25 Hct 46.4 % (35.4-49) 07/24/18 06:25 MCV 88.0 fl (80-96) 07/24/18 06:25 MCHC 34.2 g/dl (32.0-35.9) 07/24/18 06:25 RDW 17.1 % (11.9-15.9) H 07/24/18 06:25 Plt Count 93 K/MM3 (134-434) L 07/24/18 06:25 MPV 7.2 fl (7.5-11.1) L 07/24/18 06:25 CMP Sodium 139 mmol/L (136-145) 07/23/18 18:10 Potassium 3.8 mmol/L (3.5-5.1) 07/23/18 18:10 Chloride 98 mmol/L (98-107) 07/23/18 18:10 Carbon Dioxide 27 mmol/L (21-32) 07/23/18 18:10 Anion Gap 14 MMOL/L (8-16) 07/23/18 18:10 BUN 8 mg/dL (7-18) 07/23/18 18:10 Creatinine 0.6 mg/dL (0.7-1.3) L 07/23/18 18:10 Creat Clearance w eGFR > 60 (>60) 07/23/18 18:10 Random Glucose 104 mg/dL (74-106) D 07/23/18 18:10 Calcium 9.4 mg/dL (8.5-10.1) 07/23/18 18:10 Total Bilirubin 1.5 mg/dL (0.2-1.0) H 07/23/18 18:10 AST 144 U/L (15-37) H D 07/23/18 18:10 ALT 93 U/L (12-78) H D 07/23/18 18:10 Alkaline Phosphatase 91 U/L (45-117) 07/23/18 18:10 Total Protein 8.5 g/dl (6.4-8.2) H 07/23/18 18:10 Albumin 4.3 g/dl (3.4-5.0) 07/23/18 18:10 CARDIAC ENZYMES Creatine Kinase 186 IU/L (39-308) 07/23/18 18:10 Troponin I < 0.02 ng/ml (0.00-0.05) 07/24/18 00:10 Current Medications Generic Name Dose Route Start Last Admin Trade Name Freq PRN Reason Stop Dose Admin Enoxaparin Sodium 40 mg 07/23/18 20:15 07/23/18 20:36 Lovenox - SQ 40 mg DAILY SIERRA Administration Folic Acid 1 mg 07/24/18 10:00 Folic Acid - PO DAILY [facility] Lorazepam 2 mg 07/24/18 00:35 07/24/18 06:22 Ativan Injection - IVPUSH 07/24/18 12:36 2 mg Q6H [facility] Administration Lorazepam 1 mg 07/24/18 18:35 Ativan Injection - IVPUSH 07/26/18 12:36 Q6H [facility]RA Thiamine HCl 100 mg 07/24/18 10:00 Vitamin B1 - PO DAILY [facility] Home Medications Medication Instructions Recorded Folic Acid - 1 mg PO DAILY #0 tablet 12/19/12 Multivitamins [Multivit ([facility] 1 udtab PO DAILY #0 tab 12/19/12 Formulary)] Famotidine [Pepcid -] 40 mg PO DAILY 09/16/14 Tamsulosin HCl 0.4 mg PO DAILY 11/24/15 Carvedilol [Coreg -] 25 mg PO BID #60 tablet 10/25/16 Lisinopril [Prinivil] 10 mg PO DAILY #30 tablet 02/05/17 Pantoprazole Sodium [Protonix -] 40 mg PO BID #60 tab 02/05/17 Potassium Chloride [K-Dur -] 20 meq PO BIDWM #60 bag 02/05/17 Insulin (Novolog) [Novolog Vial] 1 units SQ AC #100 units 05/07/17 Lancets/Blood Glucose Strips [Fora 1 each AC #90 combo..pkg 05/07/17 [id number] Strp-Lnct] PE: as per resident's note Clinical information given: evaluate for ascites, nephrolithiasis Multiplanar imaging was performed. No intravenous or enteric contrast was administered. No urinary tract calculus or hydroureteronephrosis is identified. There is no evidence of ascites, pneumoperitoneum, or bowel obstruction. Prominent diffuse fatty infiltration of the liver is noted which appears increased in comparison to a prior CT study of 05/04/2017. The liver, spleen, pancreas, gallbladder, adrenal glands and kidneys demonstrate no discrete noncontrast abnormality. There is no aortic aneurysm. Prominent atherosclerotic aortic wall calcifications are visualized. No CT evidence of acute appendicitis, diverticulitis or colitis. There is no gross small bowel pathology. Small umbilical hernia containing properitoneal fat only. Mild prostate enlargement. Several small prostatic calcifications are seen. The visualized osseous structures demonstrate no gross CT evidence of acute abnormality. IMPRESSION: No evidence of urolithiasis or hydronephrosis. There is no evidence of ascites. Prominent diffuse hepatic steatosis is seen which appears increased in comparison to a prior CT exam of 05/04/2017. Extends atherosclerotic aortic mural calcifications are noted. Small umbilical hernia containing fat only. ASSESSMENT AND PLAN: 53 y/o M w/ DM, HTN, HLD, CAD s/p stents, Afib (no AC), EtOH abuse, cirrhosis, gastritis, pancreatitis, duodenitis, cholecystectomy p/w n/v x 3 days, tremors, chest pain. Admitted for EtOH withdrawal and r/o ACS. #EtOH withdrawal : On Ativan protocol since Pt is cirrhotic, patient is doing better #abd distention/CVA tenderness: CT a/p as above. Fatthy Liver #CP:trops neg x 2. EKG benign, CXR: no acute pathology #DM SSI, BGM ACHS #DVT PPx : Lovenox
[2018-07-24 08:00] LABS: ANION GAP 10 MMOL/L (8-16); BLOOD UREA NITROGEN 8 mg/dL (7-18); CHLORIDE 99 mmol/L (98-107); CO2 29 mmol/L (21-32); GLUCOSE,RANDOM 106 mg/dL (74-106); MAGNESIUM 1.9 mg/dL (1.8-2.4); SODIUM 138 mmol/L (136-145)
[2018-07-24 08:01] LABS: CREATININE 0.5 mg/dL (0.7-1.3); PHOSPHOROUS 2.4 mg/dL (2.5-4.9)
[2018-07-24] MEDS: THIAMINE HCL 100 MG TABLET (FP) PO SCH (09:22)
[2018-07-24] MEDS: ENOXAPARIN NA (PORCINE) 40 MG/0.4 ML DISP.SYRIN SQ SCH (09:22)
[2018-07-24] MEDS: FOLIC ACID 1 MG TABLET (FP) PO SCH (09:22)
--- NOTE | 2018-07-24 09:58 | PN ---
Physical Exam: SUBJECTIVE: Patient seen and examined at bed side, complain of RUQ pain , feeling bloating and acid reflux , denies any headache but report diffuse sweating minimal hand tremor OBJECTIVE: Vital Signs Period Temp Pulse Resp BP Sys/Mccoy Pulse Ox Last 24 Hr 97.5 F-98.3 F 82-97 18-22 140-176/74-95 96-99 GENERAL: AAOx3 in NAD HEAD: NC/AT EYES: PERRL, EOMI, sclera anicteric, ENT: MMM NECK: full range of motion, supple. LUNGS: Breath sounds equal, clear to auscultation bilaterally, no wheezes, no crackles, no accessory muscle use. HEART: Regular rate and rhythm, S1, S2 without murmur, rub or gallop. ABDOMEN: Obese Soft, RUQ tenderness , distended , normoctive bowel sounds, no guarding, no rebound, EXTREMITIES: 2+ pulses, warm, well-perfused, no edema. right 2nd finger half ambutation NEUROLOGICAL: Cranial nerves II through XII grossly intact. Normal speech, gait not observed. PSYCH: Normal mood, normal affect. SKIN: Warm, dry, Laboratory Results - last 24 hr 07/23/18 07/23/18 07/23/18 18:00 18:10 18:10 WBC 5.4 RBC 5.47 Hgb 16.6 Hct 48.7 MCV 89.1 MCH 30.3 MCHC 34.0 RDW 16.5 H Plt Count 107 L D MPV 7.3 L Absolute Neuts (auto) 3.4 Neutrophils % 62.7 D Lymphocytes % 27.1 D Monocytes % 7.8 Eosinophils % 1.0 Basophils % 1.4 Nucleated RBC % 0 PT with INR 12.10 INR 1.07 Sodium Potassium Chloride Carbon Dioxide Anion Gap BUN Creatinine Creat Clearance w eGFR POC Glucometer Random Glucose Calcium Phosphorus Magnesium Total Bilirubin AST ALT Alkaline Phosphatase Creatine Kinase Creatine Kinase Index CK-MB (CK-2) Troponin I Total Protein Albumin Lipase Urine Color Beth Urine Appearance Clear Urine pH 6.0 Ur Specific [place] 1.024 Urine Protein 3+ H Urine Glucose (UA) 3+ H Urine Ketones 2+ H Urine Blood Negative Urine Nitrite Negative Urine Bilirubin Negative Urine Urobilinogen Negative Ur Leukocyte Esterase Negative Urine WBC (Auto) <1 Urine RBC (Auto) 1 Urine Bacteria Rare Hyaline Casts 1 Urine Mucus Few 07/23/18 07/23/18 07/24/18 18:10 21:43 00:10 WBC RBC Hgb Hct MCV MCH MCHC RDW Plt Count MPV Absolute Neuts (auto) Neutrophils % Lymphocytes % Monocytes % Eosinophils % Basophils % Nucleated RBC % PT with INR INR Sodium 139 Potassium 3.8 Chloride 98 Carbon Dioxide 27 Anion Gap 14 BUN 8 Creatinine 0.6 L Creat Clearance w eGFR > 60 POC Glucometer Random Glucose 104 D Calcium 9.4 Phosphorus 3.0 Magnesium 1.3 L D Total Bilirubin 1.5 H AST 144 H D ALT 93 H D Alkaline Phosphatase 91 Creatine Kinase 186 Creatine Kinase Index 0.5 CK-MB (CK-2) 1.03 Troponin I < 0.02 < 0.02 Total Protein 8.5 H Albumin 4.3 Lipase 150 Urine Color Urine Appearance Urine pH Ur Specific [place] Urine Protein Urine Glucose (UA) Urine Ketones Urine Blood Urine Nitrite Urine Bilirubin Urine Urobilinogen Ur Leukocyte Esterase Urine WBC (Auto) Urine RBC (Auto) Urine Bacteria Hyaline Casts Urine Mucus 07/24/18 07/24/18 07/24/18 06:20 06:25 06:25 WBC 3.9 L RBC 5.27 Hgb 15.9 Hct 46.4 MCV 88.0 MCH 30.1 MCHC 34.2 RDW 17.1 H Plt Count 93 L MPV 7.2 L Absolute Neuts (auto) 2.0 Neutrophils % 51.8 Lymphocytes % 34.3 D Monocytes % 10.6 H Eosinophils % 1.9 D Basophils % 1.4 Nucleated RBC % 0 PT with INR INR Sodium 138 Potassium 3.0 L D Chloride 99 Carbon Dioxide 29 Anion Gap 10 BUN 8 Creatinine 0.5 L Creat Clearance w eGFR > 60 POC Glucometer 106 Random Glucose 106 Calcium 9.0 Phosphorus 2.4 L Magnesium 1.9 D Total Bilirubin AST ALT Alkaline Phosphatase Creatine Kinase Creatine Kinase Index CK-MB (CK-2) Troponin I Total Protein Albumin Lipase Urine Color Urine Appearance Urine pH Ur Specific [place] Urine Protein Urine Glucose (UA) Urine Ketones Urine Blood Urine Nitrite Urine Bilirubin Urine Urobilinogen Ur Leukocyte Esterase Urine WBC (Auto) Urine RBC (Auto) Urine Bacteria Hyaline Casts Urine Mucus Active Medications Generic Name Dose Route Start Last Admin Trade Name Freq PRN Reason Stop Dose Admin Enoxaparin Sodium 40 mg 07/23/18 20:15 07/24/18 09:22 Lovenox - SQ 40 mg DAILY [facility] Administration Folic Acid 1 mg 07/24/18 10:00 07/24/18 09:22 Folic Acid - PO 1 mg DAILY [facility] Administration Lorazepam 2 mg 07/24/18 00:35 07/24/18 06:22 Ativan Injection - IVPUSH 07/24/18 12:36 2 mg Q6H [facility] Administration Lorazepam 1 mg 07/24/18 18:35 Ativan Injection - IVPUSH 07/26/18 12:36 Q6H [facility] Thiamine HCl 100 mg 07/24/18 10:00 07/24/18 09:22 Vitamin B1 - PO 100 mg DAILY [facility] Administration CBC, BMP 07/24/18 06:25 07/24/18 06:25 ASSESSMENT/PLAN: 53 y/o M w/ DM, HTN, HLD, CAD s/p stents, Afib (no AC), EtOH abuse, cirrhosis, gastritis, pancreatitis, duodenitis, cholecystectomy p/w n/v x 3 days, tremors, chest pain. Admitted for EtOH withdrawal and r/o ACS. # alcohol use/addiction and with cirrhosis * DC Ativan protocol and start on Valium protocol per dr Ureña * Banana Bag * cont PO thiamine, folic acid and B12 * monitor lytes and replinished as needed * counseling for EtOH dependence * fall precautions * detox consult recommendation appreciated #abd distention/CVA tenderness # Alcoholic liver disease /cirrhosis * CT a/p w/o contrast : umbilical hernia , worsening hepatic steatosis compare to Ct on 05/04/17, Aortic mural calcification * monitor LFts , bilirubin * one dose [place] 30 mg po * will consider lactulose if no BM tomorrow (had small BM this morning) # Hypokalemia # Hypophosphatemia * KCL 20 Mck * phosNak packet X once #CP * trops neg x2, * EKG No St, T wave changes * CXR no acute pathology # thrombocytopenia likely due alcoholic abuse , * plt 93 * no active bleeding * transfuse if below 50 K #DM * SSI * BGM ACHS * hold home meds #DVT PPx * Lovenox 40sq #FEN * no IVF * monitor lytes, replenish as needed (hypokalemia , hypophosphatemia ) * diabetic diet #dispo * monitor in tele Visit type - Emergency Visit Emergency Visit: Yes ED Registration Date: 07/23/18 Care time: The patient presented to the Emergency Department on the above date and was hospitalized for further evaluation of their emergent condition. - New Patient This patient is new to me today: Yes Date on this admission: 07/24/18 - Critical Care Critical Care patient: No
[2018-07-24] MEDS ORDERED: KCL 10 MEQ IVPB 10 MEQ/100 ML INFUS.BAG IVPB SCH ×2 (10:00→11:00)
--- NOTE | 2018-07-24 10:02 | CONSULT ---
Consult Detox [facility] Reason for Current Admission/Consult: alcohol use- pt with cirrhosis - History History of Present Illness: pt states has been using alcohol for many years but stopped 10 months ago and was doing well. He saw his ex- about 3 weeks ago with her new and because of this he restarted drinking alcohol- drinks about 2-3 cups of scotch a day. Never had DT's or seizures. Lives alone and has no close family or friends. - Alcohol/Substance Use Hx Alcohol Use: Yes (2 glasses of vodka daily) - Past Medical History [employer]: Yes: Seizure (ALCOHOL WITHDRAWAL,FREQUENT BLACKOUTS). No: CVA Cardio/Vascular: Yes: CAD (2 stents placed [facility] 2013), HTN, Hyperlipdemia. No: AFIB, CHF Gastrointestinal: Yes: GERD Hepatobiliary: Yes: Other (Alcoholic liver disease) Renal/: Yes: Renal Inusuff, BPH Psych: Yes: Addictions (ALCOHOL) Endocrine: Yes: Diabetes Mellitus CIWA Score - CIWA Score Nausea/Vomitin-No Nausea/No Vomiting Muscle Tremors: 2 Anxiety: 1-Mildly Anxious Agitation: 1-Slight > Activity Paroxysmal Sweats: 1-Minimal Palms Moist Orientation: 0-Oriented Tacttile Disturbances: 0-None Auditory Disturbances: 0-None Visual Disturbances: 0-None Headache: 0-None Present CIWA-Ar Total Score: 5 Assessment Plan - Diagnosis (1) Alcohol withdrawal Status: Acute Qualifiers: Complication of substance-induced condition: with unspecified complication Qualified Code(s): F10.239 - Alcohol dependence with withdrawal, unspecified (2) Chronic alcoholism Status: Acute Qualifiers: Substance use status: with intoxication Complication of substance-induced condition: uncomplicated Qualified Code(s): F10.220 - Alcohol dependence with intoxication, uncomplicated - Plan Plan: Pt with h/o chronic alcohol use/addiction and with cirrhosis. On Ativan - will d /c and start po valium detox protocol. Pt on thiamine and folate and magnesium. Will add vitamin B12. d/w pt options of alcohol detox at [facility] and [facility]- pt states that he was successful in stopping alcohol use in the past and this recent 3 week relapse was because of seeing his ex- . Pt states that he will stop drinking on his own and thinks he can be successful in abstaining. - Medication Detox Regimen/Protocol: Valium
[2018-07-24] MEDS ORDERED: diazePAM 5 MG TABLET PO ONE (10:15)
[2018-07-24] MEDS: CYANOCOBALAMIN 1,000 MCG TABLET (FP) PO SCH (10:21)
[2018-07-24] MEDS ORDERED: NAPH,MB-DB/K PH,MBDB POWDER PACKET PO ONE (10:30)
[2018-07-24] MEDS ORDERED: MAG HYDROX/AL HYDROX/SIMETH 30 ML UNIT-DOSE CUP PO ONE (10:46)
[2018-07-24] MEDS ORDERED: INSULIN SLIDING SCALE (NOVOLOG) 1 VIAL SQ SCH (11:00)
[2018-07-24] MEDS: INSULIN SLIDING SCALE (NOVOLOG) 1 VIAL SQ SCH ×3 (12:08→21:37)
[2018-07-24] MEDS ORDERED: INSULIN (NOVOLOG) ASPART 100 UNITS/ML 10ML VIAL SQ SCH (14:00)
[2018-07-24] MEDS: diazePAM 5 MG TABLET PO SCH ×2 (14:53→21:34)
[2018-07-24] MEDS ORDERED: LORazepam 2 MG/ML SDV VIAL IVPUSH SCH (18:35)
[2018-07-24] MEDS: CARVEDILOL 25 MG TABLET (FP) PO SCH (21:34)
[2018-07-24] MEDS: INSULIN (LEVEMIR) 100 UNITS/ML UNITS SQ SCH (21:42)
[2018-07-24] MEDS ORDERED: INSULIN (LEVEMIR) 100 UNITS/ML UNITS SQ SCH (22:00)
[2018-07-25] MEDS: diazePAM 5 MG TABLET PO PRN (03:39)
[2018-07-25] MEDS: diazePAM 5 MG TABLET PO SCH ×3 (06:08→21:54)
[2018-07-25] MEDS: INSULIN SLIDING SCALE (NOVOLOG) 1 VIAL SQ SCH ×4 (06:08→21:55)
[2018-07-25 07:39] LABS: BASO % 0.8 % (0-2.0); EOS % 2.1 % (0-4.5); HEMATOCRIT 50.6 % (35.4-49); LYMPH % 41.5 % (8-40); MCH 29.9 pg (25.7-33.7); MCHC 33.6 g/dl (32.0-35.9); MEAN CELL VOLUME 89.1 fl (80-96); MEAN PLT VOLUME 7.5 fl (7.5-11.1); MONO % 9.4 % (3.8-10.2); NEUT % 46.2 % (42.8-82.8); PLATELET COUNT 114 K/MM3 (134-434); RBC 5.68 M/mm3 (4.00-5.60); RDW 16.6 % (11.9-15.9)
[2018-07-25 08:03] LABS: CHLORIDE 97 mmol/L (98-107); PHOSPHOROUS 3.1 mg/dL (2.5-4.9); POTASSIUM 3.6 mmol/L (3.5-5.1); SGOT/AST 74 U/L (15-37); SGPT/ALT 70 U/L (12-78); SODIUM 136 mmol/L (136-145)
[2018-07-25 08:56] LABS: ALBUMIN 4.4 g/dl (3.4-5.0); ALK PHOS 96 U/L (45-117); ANION GAP 10 MMOL/L (8-16); BILIRUBIN,TOTAL 1.4 mg/dL (0.2-1.0); BLOOD UREA NITROGEN 13 mg/dL (7-18); CALCIUM 9.3 mg/dL (8.5-10.1); CO2 29 mmol/L (21-32); CREATININE 0.9 mg/dL (0.7-1.3); GLUCOSE,RANDOM 138 mg/dL (74-106); MAGNESIUM 1.8 mg/dL (1.8-2.4); TOT PROT 8.7 g/dl (6.4-8.2)
--- NOTE | 2018-07-25 09:17 | PN ---
Physical Exam: SUBJECTIVE: Patient seen and examined at bedside this morning. No acute events overnight. Admits dizziness, nausea, no vomiting. Denies fevers, chills, shortness of breath, chest pain, palpitations, abdominal pain, vomiting, diarrhea. OBJECTIVE: Vital Signs Period Temp Pulse Resp BP Sys/Mccoy Pulse Ox Last 24 Hr 97.6 F-99.1 F 86-102 20-20 133-167/82-103 100 GENERAL: The patient is awake, alert, and fully oriented, in no acute distress. HEAD: Normal with no signs of trauma. EYES: PERRLA, extraocular movements intact, sclera anicteric. ENT: Oropharynx clear without exudates, moist mucous membranes. NECK: Supple without lymphadenopathy LUNGS: Breath sounds equal, clear to auscultation bilaterally, no wheezes, no crackles. HEART: Regular rate and rhythm, S1, S2 without murmur, rub or gallop. ABDOMEN: Obese abdomen. Soft, nontender, nondistended, normoactive bowel sounds , no guarding, no rebound, no hepatosplenomegaly appreciated. EXTREMITIES: 2+ radial and DP pulses B/L, warm, well-perfused, no edema B/L lower extremities.. NEUROLOGICAL: Cranial nerves II through XII grossly intact. Normal speech, gait not observed as patient still admits dizziness. Strength 4/5 B/L upper and lower extremities B/L with slight B/L tremors noted with exertion. Strength 4/5 B/L lower extremities. PSYCH: Appropriate mood and affect upon my exam. SKIN: Warm, dry. Laboratory Results - last 24 hr 07/24/18 07/24/18 07/24/18 11:05 16:20 21:36 WBC RBC Hgb Hct MCV MCH MCHC RDW Plt Count MPV Absolute Neuts (auto) Neutrophils % Lymphocytes % Monocytes % Eosinophils % Basophils % Nucleated RBC % Sodium Potassium Chloride Carbon Dioxide Anion Gap BUN Creatinine Creat Clearance w eGFR POC Glucometer 225 160 172 Random Glucose Calcium Phosphorus Magnesium Total Bilirubin AST ALT Alkaline Phosphatase Total Protein Albumin 07/25/18 07/25/18 07/25/18 06:04 06:40 06:40 WBC 6.0 RBC 5.68 H Hgb 17.0 H Hct 50.6 H MCV 89.1 MCH 29.9 MCHC 33.6 RDW 16.6 H Plt Count 114 L D MPV 7.5 Absolute Neuts (auto) 2.7 Neutrophils % 46.2 Lymphocytes % 41.5 H D Monocytes % 9.4 Eosinophils % 2.1 Basophils % 0.8 Nucleated RBC % 0 Sodium 136 Potassium 3.6 Chloride 97 L Carbon Dioxide 29 Anion Gap 10 BUN 13 Creatinine 0.9 Creat Clearance w eGFR > 60 POC Glucometer 111 Random Glucose 138 H D Calcium 9.3 Phosphorus 3.1 D Magnesium 1.8 Total Bilirubin 1.4 H AST 74 H D ALT 70 D Alkaline Phosphatase 96 Total Protein 8.7 H Albumin 4.4 Active Medications Generic Name Dose Route Start Last Admin Trade Name Freq PRN Reason Stop Dose Admin Amlodipine Besylate 10 mg 07/25/18 10:00 Norvasc - PO DAILY [facility] Carvedilol 25 mg 07/24/18 22:00 07/24/18 21:34 Coreg - PO 25 mg BID [facility] Administration Cyanocobalamin 1,000 mcg 07/24/18 10:00 07/24/18 10:21 Vitamin B12 - PO 1,000 mcg DAILY [facility] Administration Diazepam 5 mg 07/24/18 14:00 07/25/18 06:08 Valium - PO 07/25/18 22:01 Not Given TID [facility] Diazepam 5 mg 07/26/18 10:00 Valium - PO 07/27/18 22:01 BID [facility] Diazepam 5 mg 07/28/18 10:00 Valium - PO 07/28/18 10:01 DAILY [facility] Diazepam 10 mg 07/24/18 09:59 07/25/18 03:39 Valium - PO 07/27/18 09:58 10 mg Q4H PRN Administration WITHDRAWAL(CONT SUBST) Enoxaparin Sodium 40 mg 07/23/18 20:15 07/24/18 09:22 Lovenox - SQ 40 mg DAILY [facility] Administration Folic Acid 1 mg 07/24/18 10:00 07/24/18 09:22 Folic Acid - PO 1 mg DAILY [facility] Administration Insulin Aspart 1 vial 07/24/18 16:30 07/25/18 06:08 Novolog Vial Sliding Scale - SQ Not Given ACHS [facility] Protocol Insulin Detemir 10 units 07/24/18 22:00 07/24/18 21:42 Levemir Vial SQ 10 units HS [facility] Administration Ranitidine HCl 300 mg 07/25/18 10:00 Zantac - PO DAILY [facility] Tamsulosin HCl 0.4 mg 07/25/18 08:30 Flomax - PO DAILY@0830 [facility] Thiamine HCl 100 mg 07/24/18 10:00 07/24/18 09:22 Vitamin B1 - PO 100 mg DAILY [facility] Administration ASSESSMENT/PLAN: Patient is a 53 y/o male with history of DM, HTN, HLD, CAD s/p stents, Afib ( not on AC) hepatic cirrhosis, gastritis, pancreatitis, BPH, presented with three days history of nausea and vomiting with associated tremors and chest pain , admitted for ETOH withrawal. ETOH withdrawal -Consult appreciated (Dr. Ureña) Patient switched from Ativan to Valium protocol. -Vit B1 100mg PO -Vit B12 1000mg PO -Folic acid 1mg PO QD -CT abdomen pelvis showed: diffuse hepatic steatosis, increased from prior study done 04/2107. Also noted prominent aortic wall atherosclerosis. No ascites , pneumoperitoneum, bowel obstruction, renal calculus. HTN -Norvasc 10mg PO QD -Coreg 25mg PO BID DM -Insulin Levemir 10 units -Insulin sliding sclae -BGM ACHS BPH -Tamsulosin 0.4mg D FEN -No IV fluids -Will monitor CMP -Diabetic diet Prophylaxis -Lovenox 40mg Sq QD Visit type - Emergency Visit Emergency Visit: No - New Patient This patient is new to me today: Yes Date on this admission: 07/25/18 - Critical Care Critical Care patient: No - Discharge Referral Referred to [facility] Med P.C.: No
[2018-07-25] MEDS: CYANOCOBALAMIN 1,000 MCG TABLET (FP) PO SCH (09:40)
[2018-07-25] MEDS: TAMSULOSIN HCL 0.4 MG CAP.ER.24H (FP) PO SCH (09:40)
[2018-07-25] MEDS: THIAMINE HCL 100 MG TABLET (FP) PO SCH (09:40)
[2018-07-25] MEDS: RANITIDINE HCL 150 MG TABLET (FP) PO SCH (09:40)
[2018-07-25] MEDS: FOLIC ACID 1 MG TABLET (FP) PO SCH (09:40)
[2018-07-25] MEDS: amLODIPine BESYLATE 10 MG TABLET (FP) PO SCH (09:40)
[2018-07-25] MEDS: CARVEDILOL 25 MG TABLET (FP) PO SCH ×2 (09:40→21:54)
[2018-07-25] MEDS: ENOXAPARIN NA (PORCINE) 40 MG/0.4 ML DISP.SYRIN SQ SCH (09:43)
[2018-07-25] MEDS ORDERED: LISINOPRIL 10 MG TABLET (FP) PO SCH (10:00)
--- NOTE | 2018-07-25 13:50 | PN ---
Teaching Attending Note Name of Resident: Carl Bates ATTENDING PHYSICIAN STATEMENT I saw and evaluated the patient. I reviewed the resident's note and discussed the case with the resident. I agree with the resident's findings and plan as documented. SUBJECTIVE: OBJECTIVE: Vital Signs Temperature 98 F 07/25/18 10:00 Pulse Rate 94 H 07/25/18 10:00 Respiratory Rate 20 07/25/18 10:00 Blood Pressure 170/100 07/25/18 10:00 O2 Sat by Pulse Oximetry (%) 100 07/25/18 09:00 CBCD WBC 6.0 K/mm3 (4.0-10.0) 07/25/18 06:40 RBC 5.68 M/mm3 (4.00-5.60) H 07/25/18 06:40 Hgb 17.0 GM/dL (11.7-16.9) H 07/25/18 06:40 Hct 50.6 % (35.4-49) H 07/25/18 06:40 MCV 89.1 fl (80-96) 07/25/18 06:40 MCHC 33.6 g/dl (32.0-35.9) 07/25/18 06:40 RDW 16.6 % (11.9-15.9) H 07/25/18 06:40 Plt Count 114 K/MM3 (134-434) L D 07/25/18 06:40 MPV 7.5 fl (7.5-11.1) 07/25/18 06:40 CMP Sodium 136 mmol/L (136-145) 07/25/18 06:40 Potassium 3.6 mmol/L (3.5-5.1) 07/25/18 06:40 Chloride 97 mmol/L (98-107) L 07/25/18 06:40 Carbon Dioxide 29 mmol/L (21-32) 07/25/18 06:40 Anion Gap 10 MMOL/L (8-16) 07/25/18 06:40 BUN 13 mg/dL (7-18) 07/25/18 06:40 Creatinine 0.9 mg/dL (0.7-1.3) 07/25/18 06:40 Creat Clearance w eGFR > 60 (>60) 07/25/18 06:40 Random Glucose 138 mg/dL (74-106) H D 07/25/18 06:40 Calcium 9.3 mg/dL (8.5-10.1) 07/25/18 06:40 Total Bilirubin 1.4 mg/dL (0.2-1.0) H 07/25/18 06:40 AST 74 U/L (15-37) H D 07/25/18 06:40 ALT 70 U/L (12-78) D 07/25/18 06:40 Alkaline Phosphatase 96 U/L (45-117) 07/25/18 06:40 Total Protein 8.7 g/dl (6.4-8.2) H 07/25/18 06:40 Albumin 4.4 g/dl (3.4-5.0) 07/25/18 06:40 CARDIAC ENZYMES Creatine Kinase 186 IU/L (39-308) 07/23/18 18:10 Troponin I < 0.02 ng/ml (0.00-0.05) 07/24/18 00:10 Current Medications Generic Name Dose Route Start Last Admin Trade Name Janel PRN Reason Stop Dose Admin Amlodipine Besylate 10 mg 07/25/18 10:00 07/25/18 09:40 Norvasc - PO 10 mg DAILY [facility] Administration Carvedilol 25 mg 07/24/18 22:00 07/25/18 09:40 Coreg - PO 25 mg BID [facility] Administration Cyanocobalamin 1,000 mcg 07/24/18 10:00 07/25/18 09:40 Vitamin B12 - PO 1,000 mcg DAILY [facility] Administration Diazepam 5 mg 07/24/18 14:00 07/25/18 06:08 Valium - PO 07/25/18 22:01 Not Given TID [facility] Diazepam 5 mg 07/26/18 10:00 Valium - PO 07/27/18 22:01 BID [facility] Diazepam 5 mg 07/28/18 10:00 Valium - PO 07/28/18 10:01 DAILY [facility] Diazepam 10 mg 07/24/18 09:59 07/25/18 03:39 Valium - PO 07/27/18 09:58 10 mg Q4H PRN Administration WITHDRAWAL(CONT SUBST) Enoxaparin Sodium 40 mg 07/23/18 20:15 07/25/18 09:43 Lovenox - SQ 40 mg DAILY [facility] Administration Folic Acid 1 mg 07/24/18 10:00 09/02/18 09:40 Folic Acid - PO 1 mg DAILY [facility] Administration Insulin Aspart 1 vial 07/24/18 16:30 07/25/18 12:16 Novolog Vial Sliding Scale - SQ Not Given [facility] Protocol Insulin Detemir 10 units 07/24/18 22:00 07/24/18 21:42 Levemir Vial SQ 10 units HS [facility] Administration Ranitidine HCl 300 mg 07/25/18 10:00 07/25/18 09:40 Zantac - PO 300 mg DAILY [facility] Administration Tamsulosin HCl 0.4 mg 07/25/18 08:30 07/25/18 09:40 Flomax - PO 0.4 mg DAILY@0830 [facility] Administration Thiamine HCl 100 mg 07/24/18 10:00 07/25/18 09:40 Vitamin B1 - PO 100 mg DAILY [facility] Administration Home Medications Medication Instructions Recorded RX: Folic Acid - 1 mg PO DAILY #0 tablet 12/19/12 RX: Multivitamins [Multivit ([facility] 1 udtab PO DAILY #0 tab 12/19/12 Formulary)] RX: Famotidine [Pepcid -] 40 mg PO DAILY 09/16/14 RX: Tamsulosin HCl 0.4 mg PO DAILY 11/24/15 RX: Carvedilol [Coreg -] 25 mg PO BID #60 tablet 10/25/16 RX: Lancets/Blood Glucose Strips 1 each AC #90 combo..pkg 05/07/17 [Fora [id number] Strp-Lnct] Amlodipine Besylate [Norvasc -] 10 mg PO DAILY 07/24/18 Atorvastatin Ca [Lipitor] 10 mg PO HS 07/24/18 Gabapentin [Neurontin] 300 mg PO BID 07/24/18 Insulin (Novolog) [Novolog Vial] 8 units SQ TID 07/24/18 Insulin Glargine,Hum.rec.anlog 10 unit SQ HS 07/24/18 [Lantus] RX: Glipizide 5 mg PO BID 07/24/18 RX: Pantoprazole Sodium [Protonix 40 mg PO DAILY 07/24/18 -] Laboratory Tests 07/23/18 07/24/18 07/25/18 21:43 06:25 06:40 Potassium 3.0 L D 3.6 Phosphorus 3.1 D Magnesium 1.3 L D 1.9 D 1.8 PE: as per resident's note Clinical information given: evaluate for ascites, nephrolithiasis Multiplanar imaging was performed. No intravenous or enteric contrast was administered. No urinary tract calculus or hydroureteronephrosis is identified. There is no evidence of ascites, pneumoperitoneum, or bowel obstruction. Prominent diffuse fatty infiltration of the liver is noted which appears increased in comparison to a prior CT study of 05/04/2017. The liver, spleen, pancreas, gallbladder, adrenal glands and kidneys demonstrate no discrete noncontrast abnormality. There is no aortic aneurysm. Prominent atherosclerotic aortic wall calcifications are visualized. No CT evidence of acute appendicitis, diverticulitis or colitis. There is no gross small bowel pathology. Small umbilical hernia containing properitoneal fat only. Mild prostate enlargement. Several small prostatic calcifications are seen. The visualized osseous structures demonstrate no gross CT evidence of acute abnormality. IMPRESSION: No evidence of urolithiasis or hydronephrosis. There is no evidence of ascites. Prominent diffuse hepatic steatosis is seen which appears increased in comparison to a prior CT exam of 05/04/2017. Extends atherosclerotic aortic mural calcifications are noted. Small umbilical hernia containing fat only. ASSESSMENT AND PLAN: 53 y/o M w/ DM, HTN, HLD, CAD s/p stents, Afib (no AC), EtOH abuse, cirrhosis, gastritis, pancreatitis, duodenitis, cholecystectomy p/w n/v x 3 days, tremors, chest pain. Admitted for EtOH withdrawal and r/o ACS. #EtOH withdrawal : On Valium protocol as per Detox consult. s/p Ativan protocol , on Thiamine/folic acid continue # Electrolyte inbalance due to alcohol dependency is corrected now # Thrombocytopenia improving continue monitoring. #abd distention/CVA tenderness: CT a/p as above. Fatthy Liver #CP:trops neg x 2. EKG benign, CXR: no acute pathology #DM SSI, BGM ACHS #DVT PPx : Lovenox Possible discharge in am if stable
[2018-07-25] MEDS ORDERED: PT OWN MED DRAWER 7, Y5N ONE (16:36)
[2018-07-25] MEDS: INSULIN (LEVEMIR) 100 UNITS/ML UNITS SQ SCH (21:59)
[2018-07-26] MEDS: INSULIN SLIDING SCALE (NOVOLOG) 1 VIAL SQ SCH ×4 (06:06→21:34)
[2018-07-26 07:15] LABS: BASO % 1.2 % (0-2.0); EOS % 2.7 % (0-4.5); HEMATOCRIT 45.7 % (35.4-49); HEMOGLOBIN 15.4 GM/dL (11.7-16.9); LYMPH % 39.6 % (8-40); MCHC 33.6 g/dl (32.0-35.9); MEAN CELL VOLUME 89.2 fl (80-96); MEAN PLT VOLUME 7.7 fl (7.5-11.1); MONO % 10.6 % (3.8-10.2); NEUT % 45.9 % (42.8-82.8); PLATELET COUNT 111 K/MM3 (134-434); RBC 5.12 M/mm3 (4.00-5.60); RDW 16.6 % (11.9-15.9); WHITE BLOOD COUNT 5.6 K/mm3 (4.0-10.0)
[2018-07-26 08:03] LABS: CHLORIDE 102 mmol/L (98-107); POTASSIUM 3.4 mmol/L (3.5-5.1); SODIUM 139 mmol/L (136-145)
[2018-07-26 08:25] LABS: ALBUMIN 3.6 g/dl (3.4-5.0); ALK PHOS 82 U/L (45-117); ANION GAP 11 MMOL/L (8-16); BLOOD UREA NITROGEN 12 mg/dL (7-18); CALCIUM 8.8 mg/dL (8.5-10.1); CO2 26 mmol/L (21-32); CREATININE 0.6 mg/dL (0.7-1.3); GLUCOSE,RANDOM 109 mg/dL (74-106); MAGNESIUM 1.7 mg/dL (1.8-2.4); PHOSPHOROUS 3.9 mg/dL (2.5-4.9); SGOT/AST 61 U/L (15-37); SGPT/ALT 59 U/L (12-78); TOT PROT 7.3 g/dl (6.4-8.2)
[2018-07-26] MEDS: TAMSULOSIN HCL 0.4 MG CAP.ER.24H (FP) PO SCH (08:57)
[2018-07-26] MEDS: CARVEDILOL 25 MG TABLET (FP) PO SCH ×2 (08:59→21:32)
[2018-07-26] MEDS: RANITIDINE HCL 150 MG TABLET (FP) PO SCH (08:59)
[2018-07-26] MEDS: CYANOCOBALAMIN 1,000 MCG TABLET (FP) PO SCH (08:59)
[2018-07-26] MEDS: ENOXAPARIN NA (PORCINE) 40 MG/0.4 ML DISP.SYRIN SQ SCH (08:59)
[2018-07-26] MEDS: amLODIPine BESYLATE 10 MG TABLET (FP) PO SCH (08:59)
[2018-07-26] MEDS: FOLIC ACID 1 MG TABLET (FP) PO SCH (08:59)
[2018-07-26] MEDS: THIAMINE HCL 100 MG TABLET (FP) PO SCH (09:00)
[2018-07-26] MEDS: diazePAM 5 MG TABLET PO SCH ×2 (09:00→21:32)
[2018-07-26] MEDS ORDERED: ACETAMINOPHEN 325 MG TABLET (FP) ONE (11:13)
[2018-07-26] MEDS ORDERED: ACETAMINOPHEN 325 MG TABLET (FP) PO ONE (11:45)
--- NOTE | 2018-07-26 13:54 | PN ---
Progress Note (short form) - Note Progress Note: Patient is comfortable with no acute distress. Vital Signs Temperature 99.5 F 07/26/18 10:00 Pulse Rate 91 H 07/26/18 10:00 Respiratory Rate 18 07/26/18 10:00 Blood Pressure 134/85 07/26/18 10:00 O2 Sat by Pulse Oximetry (%) 100 07/25/18 09:00 GENERAL: The patient is awake, alert, and fully oriented, in no acute distress. HEAD: Normal with no signs of trauma. EYES: PERRLA, extraocular movements intact, sclera anicteric. ENT: Oropharynx clear without exudates, moist mucous membranes. NECK: Supple without lymphadenopathy LUNGS: Breath sounds equal, clear to auscultation bilaterally, no wheezes, no crackles. HEART: Regular rate and rhythm, S1, S2 without murmur, rub or gallop. ABDOMEN: large abdomen. Soft, nontender, nondistended, normoactive bowel sounds , no guarding or rebound. EXTREMITIES: 2+ radial and DP pulses B/L, warm, well-perfused, no edema B/L lower extremities.. NEUROLOGICAL: Cranial nerves II through XII grossly intact. Normal speech, gait not observed as patient still admits dizziness. Strength 4/5 B/L upper and lower extremities B/L with slight B/L tremors noted with exertion. Strength 4/5 B/L lower extremities. PSYCH: Appropriate mood and affect upon my exam. SKIN: Warm, dry. CBCD WBC 5.6 K/mm3 (4.0-10.0) 07/26/18 05:30 RBC 5.12 M/mm3 (4.00-5.60) 07/26/18 05:30 Hgb 15.4 GM/dL (11.7-16.9) 07/26/18 05:30 Hct 45.7 % (35.4-49) 07/26/18 05:30 MCV 89.2 fl (80-96) 07/26/18 05:30 MCHC 33.6 g/dl (32.0-35.9) 07/26/18 05:30 RDW 16.6 % (11.9-15.9) H 07/26/18 05:30 Plt Count 111 K/MM3 (134-434) L 07/26/18 05:30 MPV 7.7 fl (7.5-11.1) 07/26/18 05:30 CMP Sodium 139 mmol/L (136-145) 07/26/18 05:30 Potassium 3.4 mmol/L (3.5-5.1) L 07/26/18 05:30 Chloride 102 mmol/L (98-107) 07/26/18 05:30 Carbon Dioxide 26 mmol/L (21-32) 07/26/18 05:30 Anion Gap 11 MMOL/L (8-16) 07/26/18 05:30 BUN 12 mg/dL (7-18) 07/26/18 05:30 Creatinine 0.6 mg/dL (0.7-1.3) L 07/26/18 05:30 Creat Clearance w eGFR > 60 (>60) 07/26/18 05:30 Random Glucose 109 mg/dL (74-106) H D 07/26/18 05:30 Calcium 8.8 mg/dL (8.5-10.1) 07/26/18 05:30 Total Bilirubin 1.0 mg/dL (0.2-1.0) 07/26/18 05:30 AST 61 U/L (15-37) H 07/26/18 05:30 ALT 59 U/L (12-78) 07/26/18 05:30 Alkaline Phosphatase 82 U/L (45-117) D 07/26/18 05:30 Total Protein 7.3 g/dl (6.4-8.2) 07/26/18 05:30 Albumin 3.6 g/dl (3.4-5.0) 07/26/18 05:30 CARDIAC ENZYMES Creatine Kinase 186 IU/L (39-308) 07/23/18 18:10 Troponin I < 0.02 ng/ml (0.00-0.05) 07/24/18 00:10 Current Medications Generic Name Dose Route Start Last Admin Trade Name Janel PRN Reason Stop Dose Admin Amlodipine Besylate 10 mg 07/25/18 10:00 07/26/18 08:59 Norvasc - PO 10 mg DAILY [facility] Administration Carvedilol 25 mg 07/24/18 22:00 07/26/18 08:59 Coreg - PO 25 mg BID [facility] Administration Cyanocobalamin 1,000 mcg 07/24/18 10:00 07/26/18 08:59 Vitamin B12 - PO 1,000 mcg DAILY [facility] Administration Diazepam 5 mg 07/26/18 10:00 07/26/18 09:00 Valium - PO 07/27/18 22:01 5 mg BID [facility] Administration Diazepam 5 mg 07/28/18 10:00 Valium - PO 07/28/18 10:01 DAILY [facility] Diazepam 10 mg 07/24/18 09:59 07/25/18 03:39 Valium - PO 07/27/18 09:58 10 mg Q4H PRN Administration WITHDRAWAL(CONT SUBST) Enoxaparin Sodium 40 mg 07/23/18 20:15 07/26/18 08:59 Lovenox - SQ 40 mg DAILY [facility] Administration Folic Acid 1 mg 07/24/18 10:00 07/26/18 08:59 Folic Acid - PO 1 mg DAILY [facility] Administration Insulin Aspart 1 vial 07/24/18 16:30 07/26/18 11:55 Novolog Vial Sliding Scale - SQ Not Given [facility] Protocol Insulin Detemir 10 units 07/24/18 22:00 07/25/18 21:59 Levemir Vial SQ 10 units HS [facility] Administration Ranitidine HCl 300 mg 07/25/18 10:00 07/26/18 08:59 Zantac - PO 300 mg DAILY [facility] Administration Tamsulosin HCl 0.4 mg 07/25/18 08:30 07/26/18 08:57 Flomax - PO 0.4 mg DAILY@0830 [facility] Administration Thiamine HCl 100 mg 07/24/18 10:00 07/26/18 09:00 Vitamin B1 - PO 100 mg DAILY [facility] Administration Home Medications Medication Instructions Recorded Folic Acid - 1 mg PO DAILY #0 tablet 12/19/12 Multivitamins [Multivit ([facility] 1 udtab PO DAILY #0 tab 12/19/12 Formulary)] Famotidine [Pepcid -] 40 mg PO DAILY 09/16/14 Tamsulosin HCl 0.4 mg PO DAILY 11/24/15 Carvedilol [Coreg -] 25 mg PO BID #60 tablet 10/25/16 Lancets/Blood Glucose Strips [Fora 1 each [facility] #90 combo..pkg 05/07/17 [id number] Strp-Lnct] Amlodipine Besylate [Norvasc -] 10 mg PO DAILY 07/24/18 Atorvastatin Ca [Lipitor] 10 mg PO HS 07/24/18 Gabapentin [Neurontin] 300 mg PO BID 07/24/18 Glipizide 5 mg PO BID 07/24/18 Insulin (Novolog) [Novolog Vial] 8 units SQ TID 07/24/18 Insulin Glargine,Hum.rec.anlog 10 unit SQ HS 07/24/18 [Lantus] Pantoprazole Sodium [Protonix -] 40 mg PO DAILY 07/24/18 Clinical information given: evaluate for ascites, nephrolithiasis Multiplanar imaging was performed. No intravenous or enteric contrast was administered. No urinary tract calculus or hydroureteronephrosis is identified. There is no evidence of ascites, pneumoperitoneum, or bowel obstruction. Prominent diffuse fatty infiltration of the liver is noted which appears increased in comparison to a prior CT study of 05/04/2017. The liver, spleen, pancreas, gallbladder, adrenal glands and kidneys demonstrate no discrete noncontrast abnormality. There is no aortic aneurysm. Prominent atherosclerotic aortic wall calcifications are visualized. No CT evidence of acute appendicitis, diverticulitis or colitis. There is no gross small bowel pathology. Small umbilical hernia containing properitoneal fat only. Mild prostate enlargement. Several small prostatic calcifications are seen. The visualized osseous structures demonstrate no gross CT evidence of acute abnormality. IMPRESSION: No evidence of urolithiasis or hydronephrosis. There is no evidence of ascites. Prominent diffuse hepatic steatosis is seen which appears increased in comparison to a prior CT exam of 05/04/2017. Extends atherosclerotic aortic mural calcifications are noted. Small umbilical hernia containing fat only. ASSESSMENT AND PLAN: 53 y/o M w/ DM, HTN, HLD, CAD s/p stents, Afib (no AC), EtOH abuse, cirrhosis, gastritis, pancreatitis, duodenitis, cholecystectomy p/w n/v x 3 days, tremors, chest pain. Admitted for EtOH withdrawal and r/o ACS. #EtOH withdrawal : On Valium protocol as per Detox consult to continue s/p Ativan protocol , on Thiamine/folic acid continue # Electrolyte inbalance due to alcohol dependency is corrected now # Thrombocytopenia improving continue monitoring. #abd distention/CVA tenderness: CT a/p as above. Fatthy Liver #CP:trops neg x 2. EKG benign, CXR: no acute pathology #DM SSI, BGM ACHS #DVT PPx : Lovenox Possible discharge in am if stable Visit type - Emergency Visit Emergency Visit: Yes ED Registration Date: 07/23/18 Care time: The patient presented to the Emergency Department on the above date and was hospitalized for further evaluation of their emergent condition. - New Patient This patient is new to me today: No - Critical Care Critical Care patient: No - Discharge Referral Referred to [facility] No
--- NOTE | 2018-07-26 14:08 | EKG ---
Test Reason : Blood Pressure : / mmHG Vent. Rate : 087 BPM Atrial Rate : 087 BPM P-R Int : 170 ms QRS Dur : 120 ms QT Int : 372 ms P-R-T Axes : 047 -06 -01 degrees QTc Int : 447 ms POOR DATA QUALITY, INTERPRETATION MAY BE ADVERSELY AFFECTED SINUS RHYTHM WITH FREQUENT PREMATURE VENTRICULAR COMPLEXES RIGHT BUNDLE BRANCH BLOCK MINIMAL VOLTAGE CRITERIA FOR LVH, MAY BE NORMAL VARIANT ABNORMAL ECG WHEN COMPARED WITH ECG OF 12-SEP-2017 12:54, PREMATURE VENTRICULAR COMPLEXES ARE NOW PRESENT QRS DURATION HAS DECREASED T WAVE INVERSION NOW EVIDENT IN ANTERIOR LEADS Confirmed by DALE BRITT MD ([id number]) on 07/26/2018 2:08:44 PM Referred By: Confirmed By:DALE BRITT MD
[2018-07-26] MEDS ORDERED: PT OWN MED DRAWER 7, Y5N ONE (14:20)
[2018-07-26] MEDS ORDERED: POTASSIUM CHLORIDE TABS 20 MEQ TABLET.ER (FP) PO ONE (19:00)
[2018-07-26] MEDS: INSULIN (LEVEMIR) 100 UNITS/ML UNITS SQ SCH (21:34)
[2018-07-27] MEDS: diazePAM 5 MG TABLET PO PRN (00:26)
[2018-07-27] MEDS: INSULIN SLIDING SCALE (NOVOLOG) 1 VIAL SQ SCH ×3 (06:13→17:46)
[2018-07-27] MEDS ORDERED: DOCUSATE SODIUM 100 MG CAPSULE (FP) PO ONE (06:30)
[2018-07-27] MEDS ORDERED: PT OWN MED DRAWER 7, Y5N ONE (10:08)
[2018-07-27] MEDS: ENOXAPARIN NA (PORCINE) 40 MG/0.4 ML DISP.SYRIN SQ SCH (10:09)
[2018-07-27] MEDS: RANITIDINE HCL 150 MG TABLET (FP) PO SCH (10:10)
[2018-07-27] MEDS: TAMSULOSIN HCL 0.4 MG CAP.ER.24H (FP) PO SCH (10:10)
[2018-07-27] MEDS: FOLIC ACID 1 MG TABLET (FP) PO SCH (10:10)
[2018-07-27] MEDS: CARVEDILOL 25 MG TABLET (FP) PO SCH (10:10)
[2018-07-27] MEDS: diazePAM 5 MG TABLET PO SCH (10:10)
[2018-07-27] MEDS: amLODIPine BESYLATE 10 MG TABLET (FP) PO SCH (10:10)
[2018-07-27] MEDS: CYANOCOBALAMIN 1,000 MCG TABLET (FP) PO SCH (10:10)
[2018-07-27] MEDS: THIAMINE HCL 100 MG TABLET (FP) PO SCH (10:10)
--- NOTE | 2018-07-27 14:26 | PN ---
Teaching Attending Note Name of Resident: Carl Bates ATTENDING PHYSICIAN STATEMENT I saw and evaluated the patient. I reviewed the resident's note and discussed the case with the resident. I agree with the resident's findings and plan as documented. SUBJECTIVE: Patient has no tremor, does not want to go to rehab. uses walker at home. OBJECTIVE: Vital Signs Temperature 98.1 F 07/27/18 08:47 Pulse Rate 88 07/27/18 08:47 Respiratory Rate 20 07/27/18 09:00 Blood Pressure 124/71 07/27/18 08:47 O2 Sat by Pulse Oximetry (%) 97 07/27/18 09:00 CBCD WBC 5.6 K/mm3 (4.0-10.0) 07/26/18 05:30 RBC 5.12 M/mm3 (4.00-5.60) 07/26/18 05:30 Hgb 15.4 GM/dL (11.7-16.9) 07/26/18 05:30 Hct 45.7 % (35.4-49) 07/26/18 05:30 MCV 89.2 fl (80-96) 07/26/18 05:30 MCHC 33.6 g/dl (32.0-35.9) 07/26/18 05:30 RDW 16.6 % (11.9-15.9) H 07/26/18 05:30 Plt Count 111 K/MM3 (134-434) L 07/26/18 05:30 MPV 7.7 fl (7.5-11.1) 07/26/18 05:30 CMP Sodium 139 mmol/L (136-145) 07/26/18 05:30 Potassium 3.4 mmol/L (3.5-5.1) L 07/26/18 05:30 Chloride 102 mmol/L (98-107) 07/26/18 05:30 Carbon Dioxide 26 mmol/L (21-32) 07/26/18 05:30 Anion Gap 11 MMOL/L (8-16) 07/26/18 05:30 BUN 12 mg/dL (7-18) 07/26/18 05:30 Creatinine 0.6 mg/dL (0.7-1.3) L 07/26/18 05:30 Creat Clearance w eGFR > 60 (>60) 07/26/18 05:30 Random Glucose 109 mg/dL (74-106) H D 07/26/18 05:30 Calcium 8.8 mg/dL (8.5-10.1) 07/26/18 05:30 Total Bilirubin 1.0 mg/dL (0.2-1.0) 07/26/18 05:30 AST 61 U/L (15-37) H 07/26/18 05:30 ALT 59 U/L (12-78) 07/26/18 05:30 Alkaline Phosphatase 82 U/L (45-117) D 07/26/18 05:30 Total Protein 7.3 g/dl (6.4-8.2) 07/26/18 05:30 Albumin 3.6 g/dl (3.4-5.0) 07/26/18 05:30 CARDIAC ENZYMES Creatine Kinase 186 IU/L (39-308) 07/23/18 18:10 Troponin I < 0.02 ng/ml (0.00-0.05) 07/24/18 00:10 Home Medications Medication Instructions Recorded Folic Acid - 1 mg PO DAILY #0 tablet 12/19/12 Multivitamins [Multivit ([facility] 1 udtab PO DAILY #0 tab 12/19/12 Formulary)] Famotidine [Pepcid -] 40 mg PO DAILY 09/16/14 Tamsulosin HCl 0.4 mg PO DAILY 11/24/15 Carvedilol [Coreg -] 25 mg PO BID #60 tablet 10/25/16 Lancets/Blood Glucose Strips [Fora 1 each [facility] #90 combo..pkg 05/07/17 [id number] Strp-Lnct] Amlodipine Besylate [Norvasc -] 10 mg PO DAILY 07/24/18 Atorvastatin Ca [Lipitor] 10 mg PO HS 07/24/18 Gabapentin [Neurontin] 300 mg PO BID 07/24/18 Glipizide 5 mg PO BID 07/24/18 Insulin (Novolog) [Novolog -] 8 units SQ TID 07/24/18 Insulin Glargine,Hum.rec.anlog 10 unit SQ HS 07/24/18 [Lantus] Pantoprazole Sodium [Protonix -] 40 mg PO DAILY 07/24/18 Home Medication List Medication Instructions Recorded Confirmed Type Famotidine [Pepcid -] 40 mg PO DAILY 09/16/14 07/23/18 History Tamsulosin HCl 0.4 mg PO DAILY 11/24/15 07/23/18 History Amlodipine Besylate [Norvasc -] 10 mg PO DAILY 07/24/18 07/24/18 History Atorvastatin Ca [Lipitor] 10 mg PO HS 07/24/18 07/24/18 History Gabapentin [Neurontin] 300 mg PO BID 07/24/18 07/24/18 History Glipizide 5 mg PO BID 07/24/18 07/24/18 History Insulin (Novolog) [Novolog -] 8 units SQ TID 07/24/18 07/24/18 History Insulin Glargine,Hum.rec.anlog 10 unit SQ 07/24/18 07/24/18 History [Lantus] Pantoprazole Sodium [Protonix -] 40 mg PO DAILY 07/24/18 07/23/18 History Active Medications Generic Name Dose Route Start Last Admin Trade Name Janel PRN Reason Stop Dose Admin Amlodipine Besylate 10 mg 07/25/18 10:00 07/27/18 10:10 Norvasc - PO 10 mg DAILY [facility] Administration Carvedilol 25 mg 07/24/18 22:00 07/27/18 10:10 Coreg - PO 25 mg BID [facility] Administration Cyanocobalamin 1,000 mcg 07/24/18 10:00 07/27/18 10:10 Vitamin B12 - PO 1,000 mcg DAILY [facility] Administration Diazepam 5 mg 07/26/18 10:00 07/27/18 10:10 Valium - PO 07/27/18 22:01 5 mg BID [facility] Administration Diazepam 5 mg 07/28/18 10:00 Valium - PO 07/28/18 10:01 DAILY [facility] Enoxaparin Sodium 40 mg 07/23/18 20:15 07/27/18 10:09 Lovenox - SQ 40 mg DAILY [facility] Administration Folic Acid 1 mg 07/24/18 10:00 07/27/18 10:10 Folic Acid - PO 1 mg DAILY [facility] Administration Insulin Aspart 1 vial 07/24/18 16:30 07/27/18 12:29 Novolog Vial Sliding Scale - SQ Not Given [facility] Protocol Insulin Detemir 10 units 07/24/18 22:00 07/26/18 21:34 Levemir Vial SQ 10 units HS [facility] Administration Ranitidine HCl 300 mg 07/25/18 10:00 07/27/18 10:10 Zantac - PO 300 mg DAILY [facility] Administration Tamsulosin HCl 0.4 mg 07/25/18 08:30 07/27/18 10:10 Flomax - PO 0.4 mg DAILY@0830 [facility] Administration Thiamine HCl 100 mg 07/24/18 10:00 07/27/18 10:10 Vitamin B1 - PO 100 mg DAILY [facility] Administration Clinical information given: evaluate for ascites, nephrolithiasis Multiplanar imaging was performed. No intravenous or enteric contrast was administered. No urinary tract calculus or hydroureteronephrosis is identified. There is no evidence of ascites, pneumoperitoneum, or bowel obstruction. Prominent diffuse fatty infiltration of the liver is noted which appears increased in comparison to a prior CT study of 05/04/2017. The liver, spleen, pancreas, gallbladder, adrenal glands and kidneys demonstrate no discrete noncontrast abnormality. There is no aortic aneurysm. Prominent atherosclerotic aortic wall calcifications are visualized. No CT evidence of acute appendicitis, diverticulitis or colitis. There is no gross small bowel pathology. Small umbilical hernia containing properitoneal fat only. Mild prostate enlargement. Several small prostatic calcifications are seen. The visualized osseous structures demonstrate no gross CT evidence of acute abnormality. IMPRESSION: No evidence of urolithiasis or hydronephrosis. There is no evidence of ascites. Prominent diffuse hepatic steatosis is seen which appears increased in comparison to a prior CT exam of 05/04/2017. Extends atherosclerotic aortic mural calcifications are noted. Small umbilical hernia containing fat only. ASSESSMENT AND PLAN: 53 y/o M w/ DM, HTN, HLD, CAD s/p stents, Afib (no AC), EtOH abuse, cirrhosis, gastritis, pancreatitis, duodenitis, cholecystectomy p/w n/v x 3 days, tremors, chest pain. Admitted for EtOH withdrawal and r/o ACS. #EtOH withdrawal : On Valium protocol will complete it today , will discharge him home today , patient refusing rehab, PT walked around 45 feet, but refusing to go to rehab for physical therapy , has a walker at home will use it as per patient. # Electrolyte inbalance due to alcohol dependency is corrected now # Thrombocytopenia improved #abd distention/CVA tenderness: CT a/p as above. Fatthy Liver #CP:trops neg x 2. EKG benign, CXR: no acute pathology #DM SSI, BGM ACHS discharge patient home recommeded abstinence of alcohol. was explained the risk to the patient.
[2018-07-27 15:20] VITALS: BP 125/76; PULSE 76; TEMP 98.4
--- NOTE | 2018-07-27 15:25 | DS ---
Physical Exam: SUBJECTIVE: Patient seen and examined at bedside. No acute complaints. Tremors resolved. Feels weak. OBJECTIVE: Vital Signs Period Temp Pulse Resp BP Sys/Mccoy Pulse Ox Last 24 Hr 97.5 F-98.9 F 71-88 19-20 119-157/71-91 97-100 PHYSICAL EXAM GENERAL: A&Ox3, NAD HEAD: NC/AT EYES: PERRLA, EOMI, anicteric EARS, NOSE, THROAT: dry mucous membranes NECK: Normal range of motion, supple without lymphadenopathy, JVD, or masses. LUNGS: Breath sounds equal, clear to auscultation bilaterally. No wheezes, and no crackles. No accessory muscle use. HEART: Regular rate and rhythm, normal S1 and S2 without murmur, rub or gallop. ABDOMEN: Soft, non-tender, Grossly distended, tympanitic, no shifting dullness appreciated MUSCULOSKELETAL: Normal range of motion at all joints. No bony deformities or tenderness. +CVA tenderness. UPPER EXTREMITIES: 2+ pulses, warm, well-perfused. No cyanosis. No clubbing. No peripheral edema. LOWER EXTREMITIES: 2+ pulses, warm, well-perfused. No calf tenderness. No peripheral edema. NEUROLOGICAL: CNII-XII intact, no focal motor or sensory deficits, no tremor, hesitant gait but able to maintain balance on 50ft of ambulation. SKIN: Warm, dry, normal turgor, no rashes or lesions noted, normal capillary refill. LABS Laboratory Results - last 24 hr 07/26/18 07/26/18 07/27/18 17:26 20:54 05:55 POC Glucometer 128 154 108 07/27/18 12:28 POC Glucometer 140 HOSPITAL COURSE: Date of Admission:07/23/18 Patient is a 53 y/o M w/ PMHx IDDM, CAD s/p stents, Afib (no AC), HTN, HLD EtOH abuse, cirrhosis, duodenitis, gastritis, pancreatitis, presents with nausea and NBNB vomiting x 3 days, tremors x 1 day, 10 minute episode of left-sided chest pain (non-radiating, mild). Denies diaphoresis, dyspnea, abd pain, MEJIA, blood in stool. Last intake of EtOH 3 days [employer]. No intake of food x 2 days. Pt feels he is in withdrawal. Troponins, EKG, CXR all benign. CT a/p demonstrated worsening gross hepatic steatosis over ~1 year interval but no acute pathology. Started on Ativan withdrawal protocol given h/o cirrhosis as well as banana bag, PO thiamine, PO Mg. Tremors resolved. Switched to PO Valium coverage. Pt refused discharge to detox/rehab. Discharged home on 07/27/18. Instructed to remain abstinent from EtOH. Date of Discharge: 07/27/18 Minutes to complete discharge: 40 Discharge Summary Reason For Visit: ALCOHOL WITHDRAWAL SYNDROME Current Active Problems Alcohol withdrawal (Acute) Chest pain (Acute) Condition: Stable - Instructions Diet, Activity, Other Instructions: You were hospitalized for alcohol detoxification. You were given medication to control tremors and replete your nutrients. Referrals You have been given a followup appointment in our clinic for one week following discharge. Please keep this appointment. Medical recommendations Please remain abstinent from alcohol. If you experience any chest pain, shortness of breath, new or worsening swelling in your abdomen or legs, changes in your mental status, or any other new symptoms, please return to the Emergency Department. Referrals: [facility] [Provider Group] - 1 Week Disposition: HOME - Home Medications Comprehensive Discharge Medication List: Ambulatory Orders Folic Acid - 1 mg PO DAILY #0 tablet 12/19/12 Multivitamins [Multivit ([facility] Formulary)] 1 udtab PO DAILY #0 tab 12/19/12 Tamsulosin HCl 0.4 mg PO DAILY 11/24/15 Carvedilol [Coreg -] 25 mg PO BID #60 tablet 10/25/16 Lancets/Blood Glucose Strips [Fora [id number] Strp-Lnct] 1 [facility] AC #90 combo..pkg 05/07/17 Amlodipine Besylate [Norvasc -] 10 mg PO DAILY 07/24/18 Atorvastatin Ca [Lipitor] 10 mg PO HS 07/24/18 Gabapentin [Neurontin] 300 mg PO BID 07/24/18 Glipizide 5 mg PO BID 07/24/18 Insulin (Novolog) [Novolog -] 8 units SQ TID 07/24/18 Insulin Glargine,Hum.rec.anlog [Lantus] 10 unit SQ HS 07/24/18 Pantoprazole Sodium [Protonix -] 40 mg PO DAILY 07/24/18 This patient is new to me today: No Emergency Visit: No Critical Care patient: No - Discharge Referral Referred to [facility] No
[2018-07-28] MEDS ORDERED: diazePAM 5 MG TABLET PO SCH (10:00)
== END 2018-07-27 18:04 | disposition home or self-care (01) | DRG 775 ==
LOC: JER 17:32 → JERBED 19:50 → J4W 23:00
PROVIDERS: ADMIT Internal Medicine; ATTEND Internal Medicine
PROC: HZ2ZZZZ Detoxification Services for Substance Abuse Treatment (ICD-10-PCS; principal; 2018-07-23)
DX: F10.239 Alcohol dependence with withdrawal, unspecified (principal); I25.10 Atherosclerotic heart disease of native coronary artery without angina pectoris; Z98.61 Coronary angioplasty status; I10 Essential (primary) hypertension; E78.5 Hyperlipidemia, unspecified; E11.9 Type 2 diabetes mellitus without complications; Z79.4 Long term (current) use of insulin; D69.6 Thrombocytopenia, unspecified; K76.0 Fatty (change of) liver, not elsewhere classified; N40.0 Benign prostatic hyperplasia without lower urinary tract symptoms; K70.30 Alcoholic cirrhosis of liver without ascites; E87.6 Hypokalemia; E83.39 Other disorders of phosphorus metabolism; E66.9 Obesity, unspecified; Z68.34 Body mass index [BMI] 34.0-34.9, adult; K74.60 Unspecified cirrhosis of liver; I48.91 Unspecified atrial fibrillation; K21.9 Gastro-esophageal reflux disease without esophagitis; R11.2 Nausea with vomiting, unspecified; I45.10 Unspecified right bundle-branch block; R25.1 Tremor, unspecified; R07.9 Chest pain, unspecified
CPT/HCPCS: 36415; 71046-TC-FY; 74176-TC; 80048; 80053; 81003; 81015; 82550; 82553; 82962; 83690; 83735; 84100; 84484; 85025; 85610; 93005; 93010; 97116-GP; 99285-25; J7030

== ENCOUNTER 2019-02-16 10:29 | Inpatient (IN) | payer OTHER ==
[2019-02-16 12:36] LABS: BASO % 1.1 % (0-2.0); EOS % 0.3 % (0-4.5); HEMATOCRIT 45.6 % (35.4-49); HEMOGLOBIN 15.1 GM/dL (11.7-16.9); LYMPH % 31.7 % (8-40); MCH 30.9 pg (25.7-33.7); MCHC 33.1 g/dl (32.0-35.9); MEAN CELL VOLUME 93.3 fl (80-96); MEAN PLT VOLUME 7.7 fl (7.5-11.1); MONO % 9.5 % (3.8-10.2); NEUT % 57.4 % (42.8-82.8); PLATELET COUNT 112 K/MM3 (134-434); RBC 4.89 M/mm3 (4.00-5.60); RDW 15.7 % (11.9-15.9); WHITE BLOOD COUNT 4.1 K/mm3 (4.0-10.0)
[2019-02-16 12:56] LABS: ALBUMIN 3.9 g/dl (3.4-5.0); ALK PHOS 75 U/L (45-117); ANION GAP 11 MMOL/L (8-16); BILIRUBIN,TOTAL 0.7 mg/dL (0.2-1); BLOOD UREA NITROGEN 11 mg/dL (7-18); CALCIUM 8.3 mg/dL (8.5-10.1); CHLORIDE 101 mmol/L (98-107); CO2 28 mmol/L (21-32); CREATININE 0.8 mg/dL (0.55-1.3); GLUCOSE,RANDOM 170 mg/dL (74-106); N-TERMINAL BNP 10.5 pg/ml (5-125); POTASSIUM 3.3 mmol/L (3.5-5.1); SGOT/AST 165 U/L (15-37); SGPT/ALT 76 U/L (13-61); SODIUM 140 mmol/L (136-145); TOT PROT 7.5 g/dl (6.4-8.2)
--- NOTE | 2019-02-16 12:59 | PDOC ---
History of Present Illness - General Stated Complaint: Blood Sugar Problem Time Seen by Provider: 02/16/19 11:03 - History of Present Illness Initial Comments: 02/16/19 12:54 The patient is a 53 year old male, with a significant past medical history of HTN, HLD, IDDM, CAD s/p 2x stents, alcohol abuse, pancreatitis, cholecystitis, gastritis and liver cirrhosis, who presents to the emergency department via ems with a BGM of 66 despite giving orange juice. As per ems, the patient received D10 in route. The patient reports multiple complaints, states he called 911 because he was having LSCP for the last 3 days, worse today. He also reports epigastric and LLQ abd pain a/w nonbilious nonbloody emesis this morning after PO intake. He also reports generalized gradual onset headache which he states he has almost every day. He reports drinking at least 2 cups of whiskey daily with last reported detox as per EHR in July 2018. Pt is a poor historian. The patient denies shortness of breath and dizziness. The patient denies fever, chills, diarrhea and constipation. The patient denies dysuria, frequency, urgency and hematuria. Denies focal weakness/numbness. Denies drug use. Allergies: NKDA PCP: Bartolo White MD GI: Dr. Jimy Martinez Past History - Past Medical History Allergies/Adverse Reactions: Allergies Allergy/AdvReac Type Severity Reaction Status Date / Time No Known Allergies Allergy Verified 09/12/17 12:36 Home Medications: Ambulatory Orders Folic Acid - 1 mg PO DAILY #0 tablet 12/19/12 Multivitamins [Multivit ([facility] Formulary)] 1 udtab PO DAILY #0 tab 12/19/12 Tamsulosin HCl 0.4 mg PO DAILY 11/24/15 Carvedilol [Coreg -] 25 mg PO BID #60 tablet 10/25/16 Lancets/Blood Glucose Strips [Fora [id number] Strp-Lnct] 1 each AC #90 combo..pkg 05/07/17 Atorvastatin Ca [Lipitor] 10 mg PO HS 07/24/18 Glipizide 5 mg PO BID 07/24/18 Insulin (Novolog) [Novolog -] 8 units SQ TID 07/24/18 Insulin Glargine,Hum.rec.anlog [Matthew] 10 unit SQ HS 07/24/18 Anemia: No Asthma: No Cancer: No Cardiac Disorders: Yes (afib, cardiac stent 2009) CVA: No COPD: No CHF: No Dementia: No Diabetes: Yes GI Disorders: No Disorders: No HTN: Yes Hypercholesterolemia: Yes Liver Disease: Yes Seizures: No Thyroid Disease: No - Surgical History Abdominal Surgery: No Appendectomy: No Cardiac Surgery: Yes (stent) Cholecystectomy: No Lung Surgery: No Neurologic Surgery: No Orthopedic Surgery: No - Immunization History Immunization Up to Date: Yes - Suicide/Smoking/Psychosocial Hx Smoking Status: Yes Smoking History: Never smoked Have you smoked in the past 12 months: No Number of Cigarettes Smoked Daily: 0 If you are a former smoker, when did you quit?: 2004 Cigars Per Day: 0 Information on smoking cessation initiated: No Hx Alcohol Use: Yes Drug/Substance Use Hx: No Substance Use Type: Alcohol Hx Substance Use Treatment: Yes Review of Systems - Review of Systems Comments:: 02/16/19 13:52 "GENERAL/CONSTITUTIONAL: No fever or chills. No weakness. HEAD, EYES, EARS, NOSE AND THROAT: No change in vision. No ear pain or discharge. No sore throat. GASTROINTESTINAL: (+) LLQ pain. No nausea, vomiting, diarrhea or constipation. GENITOURINARY: No dysuria, frequency, or change in urination. CARDIOVASCULAR: (+) L sided chest pain. No shortness of breath. RESPIRATORY: No cough, wheezing, or hemoptysis. MUSCULOSKELETAL: No joint or muscle swelling. No neck or back pain. SKIN: No rash NEUROLOGIC: (+) headache, No vertigo, loss of consciousness, or change in strength/sensation. ENDOCRINE: No increased thirst. No abnormal weight change. HEMATOLOGIC/LYMPHATIC: No anemia, easy bleeding, or history of blood clots. ALLERGIC/IMMUNOLOGIC: No hives or skin allergy." *Physical Exam - Vital Signs Last Vital Signs Temp Pulse Resp BP Pulse Ox 98.6 F 84 16 168/78 96 02/16/19 10:41 02/16/19 10:41 02/16/19 10:41 02/16/19 10:41 02/16/19 10:41 - Physical Exam Comments: 02/16/19 12:56 "GENERAL: Awake, alert, and fully oriented, in no acute distress EYES: PERRLA, EOMI, sclera anicteric, conjunctiva clear ENT: Nares patent, oropharynx clear without exudates. Moist mucosa NECK: Normal ROM, supple, no lymphadenopathy, JVD, or masses LUNGS: Breath sounds equal, clear to auscultation bilaterally. No wheezes, and no crackles HEART: Regular rate and rhythm, normal S1 and S2, no murmurs, rubs or gallops ABDOMEN: Soft, +epigastric and LLQ ttp, normoactive bowel sounds. No guarding, no rebound. No masses EXTREMITIES: Normal range of motion, no edema. No cords, erythema, or tenderness. +fine tremors in UE b/l BACK: No midline spinal tenderness in cervical/thoracic/lumbar region NEUROLOGICAL: Normal speech, cranial nerves intact, equal strength and sensation b/l SKIN: Warm, Dry, normal turgor, no rashes or lesions noted." Heart Score/ECG Review #1 02/16/19 12:57 Twelve-lead EKG was performed and reviewed by me. Normal sinus rhythm, rate 74. Normal axis. +RBBB. No ANUM. When compared to EKG from 07/23/18, no sig change. ED Treatment Course - LABORATORY CBC & Chemistry Diagram: 02/16/19 12:18 02/16/19 12:18 - ADDITIONAL ORDERS Additional order review: Laboratory Results 02/16/19 12:18 Alcohol, Quantitative Cancelled 02/16/19 12:18 RBC 4.89 MCV 93.3 MCHC 33.1 RDW 15.7 MPV 7.7 Neutrophils % 57.4 D Lymphocytes % 31.7 Monocytes % 9.5 Eosinophils % 0.3 D Basophils % 1.1 - RADIOLOGY Radiology Studies Ordered: Category Date Time Status CHEST X-RAY PORTABLE* [RAD] Stat Radiology 02/16/19 11:43 Completed Medical Decision Making - Medical Decision Making 02/16/19 13:01 53yo M hx MMP including etoh abuse, HTN, HLD, IDDM, CAD s/p 2x stents presents to the ED with multiple complaints including CP, abd pain, N/V, headache. Pt appears either intoxicated or in early etoh withdrawal. Plan to do broad w/u, labs, CTAP, likely admit due to elevated HS. 02/16/19 15:37 W/u remarkable for lactic 3.1 REmaining labs/UA unremarkable CXR/CTAP with no acute findings Pt still c/o CP, plan for admit for [facility] Case discussed with Dr. Arreola, pt accepted for admission to Dr. Robert Case discussed in detail with admitting physician including history, physical exam and ancillary studies. Admitting physician has assumed care for the patient, will follow all pending diagnostics and will complete the evaluation and treatment. *DC/Admit/Observation/Transfer Diagnosis at time of Disposition: Chest pain, ETOH abuse - Discharge Dispostion Condition at time of disposition: Stable - Referrals Referrals: Vidal Urias MD [Primary Care Provider] - - Patient Instructions - Post Discharge Activity - Attestations Physician Attestion: 02/16/19 15:39 I, Dr. Corey Arriaga MD, attest that this document has been prepared under my direction and personally reviewed by me in its entirety. I further attest, that it accurately reflects all work, treatment, procedures and medical decision -making performed by me.
[2019-02-16 13:04] LABS: INR 1.13 (0.83-1.09); PROTHROMBIN TIME (PATIENT) 13.3 SEC (9.7-13.0)
[2019-02-16] MEDS ORDERED: SODIUM CHLORIDE 0.9% 1000 ML INFUS.BAG IV ONE (13:05)
[2019-02-16 13:06] LABS: ACTIVATED PTT 33.2 SECONDS (25.2-36.5)
[2019-02-16 13:09] LABS: LIPASE 196 U/L (73-393); MAGNESIUM 1.7 mg/dL (1.8-2.4)
[2019-02-16] MEDS ORDERED: MAGNESIUM 1GM/D5W - 1 GM/100 ML IVPB IVPB ONE (13:48)
[2019-02-16 14:44] LABS: URINE APPEARANCE CLEAR; URINE BILIRUBIN 1+ (NEGATIVE); URINE COLOR DK YELLOW; URINE GLUCOSE (UA) 1+ (NEGATIVE); URINE KETONE TRACE (NEGATIVE); URINE LEUK ESTERASE NEGATIVE (NEGATIVE); URINE NITRITE NEGATIVE (NEGATIVE); URINE PROTEIN TRACE (NEGATIVE)
[2019-02-16] MEDS ORDERED: SODIUM CHLORIDE 1,000 ML IV SCH (16:15)
--- NOTE | 2019-02-16 16:26 | HP ---
CHIEF COMPLAINT: chest pain PCP: Dr. Thomas HISTORY OF PRESENT ILLNESS: This is a 53 year old male with a history of CAD s/p stent , HTN, HLD, IDDM, daily alcohol use, who presents with chest pain x2days after vomiting from alcohol abuse. Chest pain is burning in quality, non radiating. Abdominal tenderness of bilateral upper quadrants. Emesis non bloody, non bilious. Denies numbness, tingling, palpitations, MEJIA, blurry vision, fever, chills, sob, melena , changes in bowel or bladder. Patient drinks 12oz whiskey per day. ER course was notable for: LA 3.1. Elevated liver enzymes, ammonia. CT abdomen pelvis was negative. Recent Travel: no PAST MEDICAL HISTORY: CAD, osteoarthritis PAST SURGICAL HISTORY: s/p stents Social History: Smoking:no Alcohol:12oz whiskey daily Drugs: no Family History: Allergies No Known Allergies Allergy (Verified 09/12/17 12:36) HOME MEDICATIONS: Home Medications Medication Instructions Recorded Folic Acid - 1 mg PO DAILY #0 tablet 12/19/12 Multivitamins [Multivit ([facility] 1 udtab PO DAILY #0 tab 12/19/12 Formulary)] Tamsulosin HCl 0.4 mg PO DAILY 11/24/15 Carvedilol [Coreg -] 25 mg PO BID #60 tablet 10/25/16 Lancets/Blood Glucose Strips [Fora 1 each AC #90 combo..pkg 05/07/17 [id number] Strp-Lnct] Atorvastatin Ca [Lipitor] 10 mg PO HS 07/24/18 Glipizide 5 mg PO BID 07/24/18 Insulin (Novolog) [Novolog -] 8 units SQ TID 07/24/18 Insulin Glargine,Hum.rec.anlog 10 unit SQ HS 07/24/18 [Lantus] REVIEW OF SYSTEMS CONSTITUTIONAL: Absent: fever, chills, diaphoresis, generalized weakness, malaise, loss of appetite, weight change HEENT: Absent: rhinorrhea, nasal congestion, throat pain, throat swelling, difficulty swallowing, mouth swelling, ear pain, eye pain, visual changes CARDIOVASCULAR: Positive: chest pain Absent: syncope, palpitations, irregular heart rate, lightheadedness, peripheral edema RESPIRATORY: Absent: cough, shortness of breath, dyspnea with exertion, orthopnea, wheezing, stridor, hemoptysis GASTROINTESTINAL: Positive:abdominal pain, abdominal distension, nausea, vomiting, Absent: diarrhea, constipation, melena, hematochezia GENITOURINARY: Absent: dysuria, frequency, urgency, hesitancy, hematuria, flank pain, genital pain MUSCULOSKELETAL: Absent: myalgia, arthralgia, joint swelling, back pain, neck pain SKIN: Absent: rash, itching, pallor HEMATOLOGIC/IMMUNOLOGIC: Absent: easy bleeding, easy bruising, lymphadenopathy, frequent infections ENDOCRINE: Absent: unexplained weight gain, unexplained weight loss, heat intolerance, cold intolerance NEUROLOGIC: Absent: headache, focal weakness or paresthesias, dizziness, unsteady gait, seizure, mental status changes, bladder or bowel incontinence PSYCHIATRIC: Absent: anxiety, depression, suicidal or homicidal ideation, hallucinations. PHYSICAL EXAMINATION Vital Signs - 24 hr 02/16/19 10:41 Temperature 98.6 F Pulse Rate 84 Respiratory 16 Rate Blood Pressure 168/78 O2 Sat by Pulse 96 Oximetry (%) GENERAL: Awake, alert, and fully oriented, anxious, shaky HEAD: Normal with no signs of trauma. EYES: Pupils equal, round and reactive to light, extraocular movements intact, sclera anicteric, conjunctiva clear. No lid lag. EARS, NOSE, THROAT: Ears normal, nares patent, oropharynx clear without exudates. dry mucous membranes. NECK: Normal range of motion, supple without lymphadenopathy, JVD, or masses. LUNGS: decreased breath sounds HEART: Regular rate and rhythm, normal S1 and S2 without murmur, rub or gallop. ABDOMEN: tender upper quadrants b/l; dixon +; + distended, normoactive bowel sounds, MUSCULOSKELETAL: Normal range of motion at all joints. No bony deformities or tenderness. No CVA tenderness. UPPER EXTREMITIES: 2+ pulses, warm, well-perfused. No cyanosis. No clubbing. No peripheral edema. missing right index finger LOWER EXTREMITIES: 2+ pulses, warm, well-perfused. No calf tenderness. No peripheral edema. NEUROLOGICAL: Cranial nerves II-XII intact. Normal speech. PSYCHIATRIC: anxious SKIN: Warm, dry, normal turgor, no rashes or lesions noted, normal capillary refill. Laboratory Results - last 24 hr 02/16/19 02/16/19 02/16/19 12:06 12:06 12:18 WBC RBC Hgb Hct MCV MCH MCHC RDW Plt Count MPV Absolute Neuts (auto) Neutrophils % Lymphocytes % Monocytes % Eosinophils % Basophils % Nucleated RBC % PT with INR 13.30 H INR 1.13 H PTT (Actin FS) 33.2 Sodium 140 Potassium 3.3 L Chloride 101 Carbon Dioxide 28 Anion Gap 11 BUN 11 Creatinine 0.8 Creat Clearance w eGFR 100.36 Random Glucose 170 H Lactic Acid Calcium 8.3 L Magnesium Total Bilirubin 0.7 AST 165 H ALT 76 H Alkaline Phosphatase 75 Ammonia 36.50 H Troponin I B-Natriuretic Peptide 10.5 Total Protein 7.5 Albumin 3.9 Lipase Urine Color Urine Appearance Urine pH Ur Specific [place] Urine Protein Urine Glucose (UA) Urine Ketones Urine Blood Urine Nitrite Urine Bilirubin Urine Urobilinogen Ur Leukocyte Esterase Alcohol, Quantitative 02/16/19 02/16/19 02/16/19 12:18 12:18 12:18 WBC 4.1 RBC 4.89 Hgb 15.1 Hct 45.6 MCV 93.3 MCH 30.9 MCHC 33.1 RDW 15.7 Plt Count 112 L MPV 7.7 Absolute Neuts (auto) 2.3 Neutrophils % 57.4 D Lymphocytes % 31.7 Monocytes % 9.5 Eosinophils % 0.3 D Basophils % 1.1 Nucleated RBC % 0 PT with INR INR PTT (Actin FS) Sodium Potassium Chloride Carbon Dioxide Anion Gap BUN Creatinine Creat Clearance w eGFR Random Glucose Lactic Acid 3.1 H* Calcium Magnesium 1.7 L Total Bilirubin AST ALT Alkaline Phosphatase Ammonia Troponin I < 0.02 B-Natriuretic Peptide Total Protein Albumin Lipase 196 Urine Color Urine Appearance Urine pH Ur Specific [place] Urine Protein Urine Glucose (UA) Urine Ketones Urine Blood Urine Nitrite Urine Bilirubin Urine Urobilinogen Ur Leukocyte Esterase Alcohol, Quantitative 196.2 H 02/16/19 02/16/19 12:18 12:25 WBC RBC Hgb Hct MCV MCH MCHC RDW Plt Count MPV Absolute Neuts (auto) Neutrophils % Lymphocytes % Monocytes % Eosinophils % Basophils % Nucleated RBC % PT with INR INR PTT (Actin FS) Sodium Potassium Chloride Carbon Dioxide Anion Gap BUN Creatinine Creat Clearance w eGFR Random Glucose Lactic Acid Calcium Magnesium Total Bilirubin AST ALT Alkaline Phosphatase Ammonia Troponin I B-Natriuretic Peptide Total Protein Albumin Lipase Urine Color Dk yellow Urine Appearance Clear Urine pH 5.0 Ur Specific [place] 1.029 Urine Protein Trace Urine Glucose (UA) 1+ H Urine Ketones Trace H Urine Blood Negative Urine Nitrite Negative Urine Bilirubin 1+ H Urine Urobilinogen 1.0 Ur Leukocyte Esterase Negative Alcohol, Quantitative Cancelled ASSESSMENT/PLAN: This is a 53 year old ETOH abuser with CAD s/p stent, DM< HTN, HLD< who presents with chest pain, associated abdominal pain, after retching, vomiting. #Chest pain; most likely musculoskeletal in nature due to retching/vomiting, vs GERD, VS gastrits, less likely esophageal tear/rupture due to stable vitals and blood counts; will rule out ACS due to history -ECG; NSR with inverted t waves in V2-4; with fallenting opf t wave in v5; RBBB ; QTc 472 -troponin x1 normal; trend -echocardiogram -statin, bb, asa #abdominal pain; most likey related to alcohol abuse; gastritis, GERD,; r/p pancreatitits, and other acute abdominal pathology -protonix -maalox -alcohol cessation -CT abdomen/pelvis negative for acute pathology #elevated transaminases with elevated ammonia -AST>ALT goes with alcohol induced -liver steatosis on CT -alcohol cessation -trend enzymes #alcohol abuse; CIWA score around ten; > 9 warrants medications for withdrawal -will give ativan prn as librium affect livers enzymes -counselling for cessation #lactic aciodosis: most likely secondary to alcohol abuse -IV hydration -trend lactic #Hypokalemia: replace #hypoglycemia with history of DM -monitor BGM -was given dextrose -will monitor ACHS; insulin SS #CAD -BB, asa, statin #HTN hx VTE: heparin sq GI ppl; protonix Disposition: monitor tele Visit type - Emergency Visit Emergency Visit: Yes ED Registration Date: 02/16/19 Care time: The patient presented to the Emergency Department on the above date and was hospitalized for further evaluation of their emergent condition. - New Patient This patient is new to me today: Yes Date on this admission: 02/16/19 - Critical Care Critical Care patient: No
[2019-02-16] MEDS ORDERED: MAG HYDROX/AL HYDROX/SIMETH 30 ML UNIT-DOSE CUP PO ONE (16:28)
[2019-02-16] MEDS ORDERED: PANTOPRAZOLE 40 MG TABLET (FP) PO SCH (16:30)
[2019-02-16] MEDS ORDERED: POTASSIUM CHLORIDE TABS 20 MEQ TABLET.ER (FP) PO ONE ×2 (16:30→16:41)
[2019-02-16] MEDS ORDERED: INSULIN SLIDING SCALE (NOVOLOG) 1 VIAL SQ SCH (16:30)
[2019-02-16] MEDS ORDERED: MAG HYDROX/AL HYDROX/SIMETH 30 ML UNIT-DOSE CUP ONE (16:41)
[2019-02-16] MEDS ORDERED: PANTOPRAZOLE 40 MG TABLET (FP) ONE (16:41)
[2019-02-16] MEDS ORDERED: ASPIRIN 81 MG CHEWABLE TABLETS ONE (16:41)
[2019-02-16] MEDS: ASPIRIN COATED 81 MG TABLET.EC PO SCH (16:48)
--- NOTE | 2019-02-16 16:57 | CON.CARD ---
Cardiology Consult (text) - Consultation Consultation Note: Chief Complaint: chest pain, vomiting, etoh abuse History of Present Illness: 53 year old male with significant past medical history of HTN, HPL, CAD s/p prior LAD PCI 4-5 years ago, ETOH abuse who presents to the ED complaining of several days of chest pain and vomiting while he has been drinking etoh heavily. Patient describes his chest pain as mild, sharp and localized on the left-side that is worse with palpation, lasting seconds when present. Patient reports his symptoms are associated with nausea, burning sensation in his stomach. No palps dizzy loc pnd orthopnea le edema sob. 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 No: CVA Cardio/Vascular: Yes: CAD, HTN, Hyperlipdemia. No: AFIB, CHF Renal/: Yes: Renal Inusuff Psych: Yes: Addictions (ALCOHOL) ros: per hpi; no fever [place] vision changes, muscle pain gib hematuria rash, no nasal congestion - Alcohol/Substance Use Hx Alcohol Use: Yes - Smoking History Smoking history: Former smoker Home Medications - Allergies Allergies/Adverse Reactions: Allergies Allergy/AdvReac Type Severity Reaction Status Date / Time No Known Allergies Allergy Verified 09/12/17 12:36 Home Medications Medication Instructions Recorded Folic Acid - 1 mg PO DAILY #0 tablet 12/19/12 Multivitamins [Multivit ([facility] 1 udtab PO DAILY #0 tab 12/19/12 Formulary)] Tamsulosin HCl 0.4 mg PO DAILY 11/24/15 Carvedilol [Coreg -] 25 mg PO BID #60 tablet 10/25/16 Lancets/Blood Glucose Strips [Fora 1 each AC #90 combo..pkg 05/07/17 [id number] Strp-Lnct] Atorvastatin Ca [Lipitor] 10 mg PO HS 07/24/18 Glipizide 5 mg PO BID 07/24/18 Insulin (Novolog) [Novolog -] 8 units SQ TID 07/24/18 Insulin Glargine,Hum.rec.anlog 10 unit SQ HS 07/24/18 [Lantus] - Risk Factors Known Risk Factors: Yes: Age, Hypercholesterolemia, Hypertension, Physical Inactivity Vital Signs: Vital Signs Period Temp Pulse Resp BP Sys/Mccoy Pulse Ox Last 24 Hr 98.6 F 84 16 168/78 96 nad no jvd rrr s1s2 no mrg cta bl nl eff aao3 no le e/c/c abd nt nd pos bs no jaundice diaphoresis pos dp pt no carotid bruits chest wall tenderness, reproduces his cp - Other Data Labs, Other Data: Laboratory Last Values WBC 4.1 K/mm3 (4.0-10.0) 02/16/19 12:18 RBC 4.89 M/mm3 (4.00-5.60) 02/16/19 12:18 Hgb 15.1 GM/dL (11.7-16.9) 02/16/19 12:18 Hct 45.6 % (35.4-49) 02/16/19 12:18 MCV 93.3 fl (80-96) 02/16/19 12:18 MCH 30.9 pg (25.7-33.7) 02/16/19 12:18 MCHC 33.1 g/dl (32.0-35.9) 02/16/19 12:18 RDW 15.7 % (11.9-15.9) 02/16/19 12:18 Plt Count 112 K/MM3 (134-434) L 02/16/19 12:18 MPV 7.7 fl (7.5-11.1) 02/16/19 12:18 Absolute Neuts (auto) 2.3 K/mm3 (1.5-8.0) 02/16/19 12:18 Neutrophils % 57.4 % (42.8-82.8) D 02/16/19 12:18 Lymphocytes % 31.7 % (8-40) 02/16/19 12:18 Monocytes % 9.5 % (3.8-10.2) 02/16/19 12:18 Eosinophils % 0.3 % (0-4.5) D 02/16/19 12:18 Basophils % 1.1 % (0-2.0) 02/16/19 12:18 Nucleated RBC % 0 % (0-0) 02/16/19 12:18 PT with INR 13.30 SEC (9.7-13.0) H 02/16/19 12:06 INR 1.13 (0.83-1.09) H 02/16/19 12:06 PTT (Actin FS) 33.2 SECONDS (25.2-36.5) 02/16/19 12:06 Sodium 140 mmol/L (136-145) 02/16/19 12:18 Potassium 3.3 mmol/L (3.5-5.1) L 02/16/19 12:18 Chloride 101 mmol/L (98-107) 02/16/19 12:18 Carbon Dioxide 28 mmol/L (21-32) 02/16/19 12:18 Anion Gap 11 MMOL/L (8-16) 02/16/19 12:18 BUN 11 mg/dL (7-18) 02/16/19 12:18 Creatinine 0.8 mg/dL (0.55-1.3) 02/16/19 12:18 Creat Clearance w eGFR 100.36 (>60) 02/16/19 12:18 Random Glucose 170 mg/dL (74-106) H 02/16/19 12:18 Lactic Acid 3.1 mmol/L (0.4-2.0) H* 02/16/19 12:18 Calcium 8.3 mg/dL (8.5-10.1) L 02/16/19 12:18 Magnesium 1.7 mg/dL (1.8-2.4) L 02/16/19 12:18 Total Bilirubin 0.7 mg/dL (0.2-1) 02/16/19 12:18 AST 165 U/L (15-37) H 02/16/19 12:18 ALT 76 U/L (13-61) H 02/16/19 12:18 Alkaline Phosphatase 75 U/L (45-117) 02/16/19 12:18 Ammonia 36.50 umol/L (11-32) H 02/16/19 12:06 Troponin I < 0.02 ng/ml (0.00-0.05) 02/16/19 12:18 B-Natriuretic Peptide 10.5 pg/ml (5-125) 02/16/19 12:18 Total Protein 7.5 g/dl (6.4-8.2) 02/16/19 12:18 Albumin 3.9 g/dl (3.4-5.0) 02/16/19 12:18 Lipase 196 U/L (73-393) 02/16/19 12:18 Urine Color Dk yellow 02/16/19 12:25 Urine Appearance Clear 02/16/19 12:25 Urine pH 5.0 (5.0-8.0) 02/16/19 12:25 Ur Specific [place] 1.029 (1.010-1.035) 02/16/19 12:25 Urine Protein Trace (NEGATIVE) 02/16/19 12:25 Urine Glucose (UA) 1+ (NEGATIVE) H 02/16/19 12:25 Urine Ketones Trace (NEGATIVE) H 02/16/19 12:25 Urine Blood Negative (NEGATIVE) 02/16/19 12:25 Urine Nitrite Negative (NEGATIVE) 02/16/19 12:25 Urine Bilirubin 1+ (NEGATIVE) H 02/16/19 12:25 Urine Urobilinogen 1.0 mg/dL (0.2-1.0) 02/16/19 12:25 Ur Leukocyte Esterase Negative (NEGATIVE) 02/16/19 12:25 Alcohol, Quantitative 196.2 mg/dL (0.0-5.0) H 02/16/19 12:18 ecg: sr, old rbbb cxr: no chf Echo 08/2015: normal LV/RV size and function, no sig valv abn Assessment/Plan 53 year old male with significant past medical history of HTN, HPL, CAD s/p prior LAD PCI 4-5 years ago, ETOH abuse who presents to the ED complaining of several days of chest pain and vomiting while he has been drinking etoh heavily. cp: -longstanding atyp CP with clearly non-anginal features, -presently with similar atyp CP occurring after vomiting. no ischemic ecg changes and trop neg x1. Cont tele. Continue mario, echo pending-->if benign then no further isch w/u is warranted at this time. CAD: -prior PCI of LAD (for ? angina vs atyp cp with incidental finding on cath); residual nonobstr dz then with no angina or ischemia since -plan as above -cont BB, statin, asa hld: -cont statin HTN: -cont bb etoh abuse: -cessation discussed
[2019-02-16] MEDS ORDERED: FOLIC ACID INJECTION - 1 MG, THIAMINE HCL 100 MG, MULTIVIT INJECTION ADULT 10 ML in SOD... IVPB ONE (18:12)
[2019-02-16] MEDS ORDERED: ONDANSETRON 4 MG/2 ML VIAL IVPUSH PRN (18:14)
--- NOTE | 2019-02-16 18:21 | PN ---
Teaching Attending Note Name of Resident: Grace Arreola ATTENDING PHYSICIAN STATEMENT I saw and evaluated the patient. I reviewed the resident's note and discussed the case with the resident. I agree with the resident's findings and plan as documented with exceptions below. SUBJECTIVE: 53 yom with pMHx of CAD s/p LAD PCI 2009 (per patient), HTN, HLD, IDDM, ETOH abuse, hepatic steatosis, pancreatitis, has been drinking almost daily. Reports started drinking around noon yesterday till 9 pm, but reports only 2 glasses of whiskey. For the last few days, has been having poor oral intake, nausea, multiple episodes of non bloody, bilious vomiting yesterday associated with intermittent left sided chest pain and left sided abdominal pain more associated with vomiting, reports more as sharp burning pain. Symptoms of chest pain exacerbated with drinking liquids in the ED. Denies any fevers, chills, chest pressure, arm or jaw pain or exertional symptoms. Intermittent left sided chest pain tender to touch and occasionally associated with vomiting and oral intake. Was noted hypoglycemic 60s with EMS, s /p D10 enroute. Patient reports taking his insulin in AM, with poor oral intake. 12 point ROS done neg except above. OBJECTIVE: Vital Signs Period Temp Pulse Resp BP Sys/Mccoy Pulse Ox Last 24 Hr 98.6 F 84 16 168/78 96 Intake & Output 02/13/19 02/14/19 02/15/19 02/16/19 23:59 23:59 23:59 23:59 Weight 220 lb GENERAL: Awake, alert, and fully oriented, in no acute distress, obese male. HEAD: Normal with no signs of trauma. EYES: Pupils equal, round and reactive to light, extraocular movements intact, sclera anicteric, eyes injected. No lid lag. EARS, NOSE, THROAT: Ears normal, nares patent, oropharynx clear without exudates. Dry mucous membranes. NECK: Normal range of motion, supple LUNGS: Breath sounds equal, clear to auscultation bilaterally. No wheezes, and no crackles. No accessory muscle use. HEART: Regular rate and rhythm, normal S1 and S2 ABDOMEN: Soft, obese, tenderness LMQ, no voluntary or involuntary guarding or rigidity, no RUQ or epigastric tenderness currently MUSCULOSKELETAL: Normal range of motion at all joints. No bony deformities or tenderness. No CVA tenderness. UPPER EXTREMITIES: 2+ pulses, warm, well-perfused. No cyanosis. No clubbing. No peripheral edema. LOWER EXTREMITIES: 2+ pulses, warm, well-perfused. No calf tenderness. No peripheral edema. NEUROLOGICAL: AAOX3, power 5/5, no tremors or asterexis noted Cranial nerves II- XII intact. Normal speech. gait not observed PSYCHIATRIC: Cooperative. Good eye contact. Appropriate mood and affect. SKIN: Warm, dry, normal turgor, no rashes or lesions noted, normal capillary refill. Home Medications Medication Instructions Recorded Folic Acid - 1 mg PO DAILY #0 tablet 12/19/12 Multivitamins [Multivit ([facility] 1 udtab PO DAILY #0 tab 12/19/12 Formulary)] Tamsulosin HCl 0.4 mg PO DAILY 11/24/15 Carvedilol [Coreg -] 25 mg PO BID #60 tablet 10/25/16 Lancets/Blood Glucose Strips [Fora 1 each [facility] #90 combo..pkg 05/07/17 [id number] Strp-Lnct] Atorvastatin Ca [Lipitor] 10 mg PO HS 07/24/18 Glipizide 5 mg PO BID 07/24/18 Insulin (Novolog) [Novolog -] 8 units SQ TID 07/24/18 Famotidine [Pepcid] 40 mg PO DAILY 02/16/19 Insulin Glargine,Hum.rec.anlog 10 unit SQ AM 02/16/19 [Basaglar Kwikpen U-100] Multivitamin [One-Daily 1 each PO DAILY 02/16/19 Multi-Vitamin] Topiramate [Topamax] 50 mg PO BID 02/16/19 Active Medications Aspirin (Ecotrin -) 81 mg PO DAILY [facility] Last Admin: 02/16/19 16:48 Dose: 81 mg Carvedilol (Coreg -) 25 mg PO BID [facility] Folic Acid (Folic Acid -) 1 mg PO DAILY [facility] Heparin Sodium (Porcine) (Heparin -) 5,000 unit SQ TID [facility] Folic Acid 1 mg/ Thiamine HCl 100 mg/ Multivitamins/Minerals 10 ml/ Sodium Chloride 1,000 mls @ 100 mls/hr IVPB ONCE ONE Stop: 02/17/19 04:11 Potassium Chloride/Sodium Chloride (Ns+20 Meq Kcl -) 20 meq in 1,000 mls @ 100 mls/hr IV ASDIR [facility] Insulin Aspart (Novolog Vial Sliding Scale -) 1 vial SQ ACHS [facility]; Protocol Lorazepam (Ativan Injection -) 2 mg IVPUSH Q6H PRN PRN Reason: WITHDRAWAL(CONT SUBST) Ondansetron HCl (Zofran Injection) 4 mg IVPUSH Q6H PRN PRN Reason: NAUSEA Pantoprazole Sodium (Protonix Iv) 40 mg IVPUSH BID [facility] Tamsulosin HCl (Flomax -) 0.4 mg PO DAILY@0830 [facility] Laboratory Results - last 24 hr 02/16/19 02/16/19 02/16/19 12:06 12:06 12:18 WBC RBC Hgb Hct MCV MCH MCHC RDW Plt Count MPV Absolute Neuts (auto) Neutrophils % Lymphocytes % Monocytes % Eosinophils % Basophils % Nucleated RBC % PT with INR 13.30 H INR 1.13 H PTT (Actin FS) 33.2 Sodium 140 Potassium 3.3 L Chloride 101 Carbon Dioxide 28 Anion Gap 11 BUN 11 Creatinine 0.8 Creat Clearance w eGFR 100.36 Random Glucose 170 H Lactic Acid Calcium 8.3 L Magnesium Total Bilirubin 0.7 AST 165 H ALT 76 H Alkaline Phosphatase 75 Ammonia 36.50 H Troponin I B-Natriuretic Peptide 10.5 Total Protein 7.5 Albumin 3.9 Lipase Urine Color Urine Appearance Urine pH Ur Specific [place] Urine Protein Urine Glucose (UA) Urine Ketones Urine Blood Urine Nitrite Urine Bilirubin Urine Urobilinogen Ur Leukocyte Esterase Alcohol, Quantitative 02/16/19 02/16/19 02/16/19 12:18 12:18 12:18 WBC 4.1 RBC 4.89 Hgb 15.1 Hct 45.6 MCV 93.3 MCH 30.9 MCHC 33.1 RDW 15.7 Plt Count 112 L MPV 7.7 Absolute Neuts (auto) 2.3 Neutrophils % 57.4 D Lymphocytes % 31.7 Monocytes % 9.5 Eosinophils % 0.3 D Basophils % 1.1 Nucleated RBC % 0 PT with INR INR PTT (Actin FS) Sodium Potassium Chloride Carbon Dioxide Anion Gap BUN Creatinine Creat Clearance w eGFR Random Glucose Lactic Acid 3.1 H* Calcium Magnesium 1.7 L Total Bilirubin AST ALT Alkaline Phosphatase Ammonia Troponin I < 0.02 B-Natriuretic Peptide Total Protein Albumin Lipase 196 Urine Color Urine Appearance Urine pH Ur Specific [place] Urine Protein Urine Glucose (UA) Urine Ketones Urine Blood Urine Nitrite Urine Bilirubin Urine Urobilinogen Ur Leukocyte Esterase Alcohol, Quantitative 196.2 H 02/16/19 02/16/19 12:18 12:25 WBC RBC Hgb Hct MCV MCH MCHC RDW Plt Count MPV Absolute Neuts (auto) Neutrophils % Lymphocytes % Monocytes % Eosinophils % Basophils % Nucleated RBC % PT with INR INR PTT (Actin FS) Sodium Potassium Chloride Carbon Dioxide Anion Gap BUN Creatinine Creat Clearance w eGFR Random Glucose Lactic Acid Calcium Magnesium Total Bilirubin AST ALT Alkaline Phosphatase Ammonia Troponin I B-Natriuretic Peptide Total Protein Albumin Lipase Urine Color Dk yellow Urine Appearance Clear Urine pH 5.0 Ur Specific [place] 1.029 Urine Protein Trace Urine Glucose (UA) 1+ H Urine Ketones Trace H Urine Blood Negative Urine Nitrite Negative Urine Bilirubin 1+ H Urine Urobilinogen 1.0 Ur Leukocyte Esterase Negative Alcohol, Quantitative Cancelled CT A/P results reviewed EKG: NSR 74, RBBB, QSin III, aVF (unchanged from 06/2018) ASSESSMENT AND PLAN: 53 yom with pMHx of CAD s/p LAD PCI 2009 (per patient), HTN, HLD, IDDM, ETOH abuse, hepatic steatosis, pancreatitis admitted with hypoglycemia, ETOH intoxication and atypical chest pain. -Hypoglycemia in the setting of continuation of insulin/poor oral intake -ETOH abuse/dependence/ACute intoxication -Acute Alcohol withdrawal -Abnormal LFTs, suspect alcoholic hepatitis -Atypical chest pain -Hypokalemia -CAD s/p LAD PCI ?2009 -IDDM -Hepatic steatosis Plan: Banana bag, replete K. Hold home insulin. BGM and ISS to start >200. protonix IV BID. Zofran prn. PO clears, advance as tolerated. Telemetry, cycle troponin. Repeat 2D echo. Cardiology input noted. Continue coreg. Hold statin, trend LFTs. detox consult. DVTPPX heparin with close monitoring. Dispo home vs Park care based on clinical course. Plan discussed with patient in detail, all questions answered. Total admit time 61 min.
[2019-02-16] MEDS: INSULIN SLIDING SCALE (NOVOLOG) 1 VIAL SQ SCH (21:41)
[2019-02-16] MEDS: HEPARIN NA (PORCINE) 5,000 UNITS/ML 1ML VIAL SQ SCH (21:41)
[2019-02-16] MEDS: CARVEDILOL 25 MG TABLET (FP) PO SCH (21:41)
[2019-02-16] MEDS: LORazepam 2 MG/ML SDV VIAL IVPUSH PRN (21:42)
[2019-02-16] MEDS: PANTOPRAZOLE SODIUM 40 MG VIAL IVPUSH SCH (21:42)
[2019-02-16] MEDS ORDERED: ATORVASTATIN CA 10 MG TABLET (FP) PO SCH (22:00)
[2019-02-17 04:00] VITALS: BMI 34.1
[2019-02-17 06:43] LABS: BASO % 1.4 % (0-2.0); EOS % 1.4 % (0-4.5); HEMOGLOBIN 15.5 GM/dL (11.7-16.9); LYMPH % 33.4 % (8-40); MCH 31.3 pg (25.7-33.7); MCHC 33.7 g/dl (32.0-35.9); MEAN CELL VOLUME 92.9 fl (80-96); MEAN PLT VOLUME 7.9 fl (7.5-11.1); MONO % 8.8 % (3.8-10.2); PLATELET COUNT 106 K/MM3 (134-434); RBC 4.95 M/mm3 (4.00-5.60); RDW 15.3 % (11.9-15.9); WHITE BLOOD COUNT 4.9 K/mm3 (4.0-10.0)
[2019-02-17] MEDS: INSULIN SLIDING SCALE (NOVOLOG) 1 VIAL SQ SCH ×4 (06:57→22:20)
[2019-02-17] MEDS: HEPARIN NA (PORCINE) 5,000 UNITS/ML 1ML VIAL SQ SCH ×3 (06:57→22:20)
[2019-02-17] MEDS: SODIUM CHLORIDE 0.9%/KCL 20 MEQ/1,000 ML INFUS.BAG IV SCH ×2 (06:57→12:46)
[2019-02-17 07:03] LABS: INR 1.13 (0.83-1.09); PROTHROMBIN TIME (PATIENT) 13.4 SEC (9.7-13.0)
[2019-02-17 07:20] LABS: ALBUMIN 3.7 g/dl (3.4-5.0); ALK PHOS 76 U/L (45-117); ANION GAP 9 MMOL/L (8-16); BILIRUBIN,TOTAL 1.7 mg/dL (0.2-1); BLOOD UREA NITROGEN 9 mg/dL (7-18); CALCIUM 8.1 mg/dL (8.5-10.1); CHLORIDE 106 mmol/L (98-107); CHOLESTEROL 168 mg/dL (50-200); CO2 26 mmol/L (21-32); CREATININE 0.8 mg/dL (0.55-1.3); GLUCOSE,RANDOM 120 mg/dL (74-106); HDL CHOLESTEROL 72 mg/dL (40-60); MAGNESIUM 1.6 mg/dL (1.8-2.4); POTASSIUM 3.4 mmol/L (3.5-5.1); SGOT/AST 131 U/L (15-37); SGPT/ALT 69 U/L (13-61); SODIUM 141 mmol/L (136-145); TOT PROT 7.3 g/dl (6.4-8.2); TRIGLYCERIDES 69 mg/dL (0-150)
[2019-02-17 08:03] LABS: BILIRUBIN,DIRECT 0.7 mg/dL (0.0-0.2)
[2019-02-17] MEDS: LORazepam 2 MG/ML SDV VIAL IVPUSH PRN (09:00)
[2019-02-17] MEDS ORDERED: MAGNESIUM SULF 50% (8.12 MEQ/2 ML-1 GM VIAL) IVPB ONE (10:00)
[2019-02-17] MEDS ORDERED: POTASSIUM PHOSPHATE IVPB ONE (11:00)
[2019-02-17] MEDS ORDERED: SODIUM CHLORIDE IVPB ONE (11:00)
[2019-02-17] MEDS: chlordiazePOXIDE HCL 25 MG CAPSULE PO SCH ×2 (11:00→12:45)
[2019-02-17] MEDS: FOLIC ACID 1 MG TABLET (FP) PO SCH (11:12)
[2019-02-17] MEDS: PANTOPRAZOLE SODIUM 40 MG VIAL IVPUSH SCH (11:13)
[2019-02-17] MEDS: CARVEDILOL 25 MG TABLET (FP) PO SCH ×2 (11:13→22:20)
[2019-02-17] MEDS: amLODIPine BESYLATE 5 MG TABLET (FP) PO SCH (11:13)
[2019-02-17] MEDS: TAMSULOSIN HCL 0.4 MG CAP PO SCH (11:13)
[2019-02-17] MEDS: ASPIRIN COATED 81 MG TABLET.EC PO SCH (11:13)
--- NOTE | 2019-02-17 11:21 | PN ---
Progress Note (short form) - Note Progress Note: s: no sob palps dizzy; cp better o: Vital Signs Period Temp Pulse Resp BP Sys/Mccoy Pulse Ox Last 24 Hr 98.3 F-99.1 F 72-82 20-20 149-166/85-94 98-99 nad no jvd rrr s1s2 no mrg cta bl nl eff aao3 no le e/c/c abd nt nd pos bs no jaundice diaphoresis chest wall tenderness, reproduces his cp Current Medications Generic Name Dose Route Start Last Admin Trade Name Freq PRN Reason Stop Dose Admin Amlodipine Besylate 5 mg 02/17/19 10:00 02/17/19 11:13 Norvasc - PO 5 mg DAILY [facility] Administration Aspirin 81 mg 02/16/19 16:30 02/17/19 11:13 Ecotrin - PO 81 mg DAILY [facility] Administration Carvedilol 25 mg 02/16/19 22:00 02/17/19 11:13 Coreg - PO 25 mg BID [facility] Administration Chlordiazepoxide HCl 10 mg 02/19/19 05:00 Librium - PO 02/20/19 05:00 Q12H PRN Signs/symptoms of Withdrawal Chlordiazepoxide HCl 10 mg 02/17/19 09:22 Librium - PO 02/19/19 05:00 Q8H PRN Signs/symptoms of Withdrawal Chlordiazepoxide HCl 25 mg 02/17/19 05:00 02/17/19 11:00 Librium - PO 02/17/19 13:01 Not Given Q8H [facility] Chlordiazepoxide HCl 15 mg 02/17/19 21:01 Librium - PO 02/18/19 13:02 Q8H [facility] Chlordiazepoxide HCl 10 mg 02/18/19 21:01 Librium - PO 02/19/19 13:02 Q8H [facility] Folic Acid 1 mg 02/17/19 10:00 02/17/19 11:12 Folic Acid - PO 1 mg DAILY [facility] Administration Heparin Sodium (Porcine) 5,000 unit 02/16/19 22:00 02/17/19 06:57 Heparin - SQ 5,000 unit TID [facility] Administration Potassium Chloride/Sodium Chloride 20 meq in 1,000 mls @ 100 mls/hr 02/17/19 05:00 02/17/19 06:57 Ns+20 Meq Kcl - IV Not Given ASDIR [facility] Potassium Phosphate 25 mm/ 508.3333 mls @ 63.542 mls/hr 02/17/19 11:00 Sodium Chloride IVPB 02/17/19 18:59 ONCE ONE Insulin Aspart 1 vial 02/16/19 18:39 02/17/19 11:13 Novolog Vial Sliding Scale - SQ Not Given ACHS [facility] Protocol Ondansetron HCl 4 mg 02/16/19 18:14 Zofran Injection IVPUSH Q6H PRN NAUSEA Pantoprazole Sodium 40 mg 02/16/19 22:00 02/17/19 11:13 Protonix Iv IVPUSH 40 mg BID [facility] Administration Tamsulosin HCl 0.4 mg 02/17/19 08:30 02/17/19 11:13 Flomax - PO 0.4 mg DAILY@0830 [facility] Administration CBC, BMP 02/17/19 06:00 02/17/19 05:30 ecg: sr, old rbbb cxr: no chf tele: sr Echo 08/2015: normal LV/RV size and function, no sig valv abn Assessment/Plan 53 year old male with significant past medical history of HTN, HPL, CAD s/p prior LAD PCI 4-5 years ago, ETOH abuse who presents to the ED complaining of several days of chest pain and vomiting while he has been drinking etoh heavily. cp: -longstanding atyp CP with clearly non-anginal features, -presently with similar atyp CP occurring after vomiting. no ischemic ecg changes and trop neg x2. Echo pending-->if benign then no further isch w/u is warranted at this time and ok for dc from cardiac pov. CAD: -prior PCI of LAD (for ? angina vs atyp cp with incidental finding on cath); residual nonobstr dz then with no angina or ischemia since -plan as above -cont BB, statin, asa hld: -cont statin HTN: -cont bb. bp elevated, will add norvasc. etoh abuse: -cessation discussed
--- NOTE | 2019-02-17 11:48 | EKG ---
Test Reason : Blood Pressure : / mmHG Vent. Rate : 074 BPM Atrial Rate : 074 BPM P-R Int : 192 ms QRS Dur : 150 ms QT Int : 426 ms P-R-T Axes : 041 -01 007 degrees QTc Int : 472 ms NORMAL SINUS RHYTHM RIGHT BUNDLE BRANCH BLOCK MINIMAL VOLTAGE CRITERIA FOR LVH, MAY BE NORMAL VARIANT INFERIOR INFARCT , AGE UNDETERMINED ABNORMAL ECG WHEN COMPARED WITH ECG OF 23-JUL-2018 17:49, PREMATURE VENTRICULAR COMPLEXES ARE NO LONGER PRESENT QRS DURATION HAS INCREASED CRITERIA FOR SEPTAL INFARCT ARE NO LONGER PRESENT INFERIOR INFARCT IS NOW PRESENT Confirmed by JANIS NIEVES MD ([id number]) on 02/17/2019 11:48:06 AM Referred By: Confirmed By:JANIS NIEVES MD
--- NOTE | 2019-02-17 13:02 | ECHO ---
Name: JANNETTE RUBI Exam:Adult Echocardiogram Study Date: 02/17/2019 11:22 AM Age: 53 yrs Reason For Study: Chest pain HX STENT Height: 67 in Weight: 220 lb BSA: 2.1 m2 MMode/2D Measurements & Calculations IVSd: 0.81 cm Ao root diam: 3.1 cm LVIDd: 4.5 cm LA dimension: 3.6 cm LVIDs: 3.3 cm LVPWd: 0.81 cm EDV(Teich): 94.0 ml LVOT diam: 2.0 cm ESV(Teich): 45.4 ml Doppler Measurements & Calculations MV E max nemesio: 48.4 cm/sec Ao V2 max: 141.8 cm/sec MV A max nemesio: 72.1 cm/sec Ao max P.0 mmHg MV E/A: 0.67 Ao V2 mean: 85.4 cm/sec MV dec time: 0.12 sec Ao mean P.7 mmHg Ao V2 VTI: 27.0 cm DANIEL(I,D): 1.8 cm2 DANIEL(V,D): 1.8 cm2 LV V1 max P.5 mmHg SV(LVOT): 48.6 ml LV V1 mean P.2 mmHg LV V1 max: 79.5 cm/sec LV V1 mean: 48.8 cm/sec LV V1 VTI: 14.8 cm TR max nemesio: 179.2 cm/sec Med Peak E' Nemesio: 5.3 cm/sec TR max P.9 mmHg Med E/e': 9.2 Lat Peak E' Nemesio: 6.3 cm/sec Lat E/e': 7.7 Procedure A complete two-dimensional transthoracic echocardiogram was performed (2D, M-mode, Doppler and color flow Doppler). The study was technically difficult with many images being suboptimal in quality. Left Ventricle The left ventricular size, thickness and function are normal. The left ventricular ejection fraction is normal. Ejection Fraction = 60-65%. No regional wall motion abnormalities noted. Right Ventricle The right ventricle is normal in size and function. Atria Normal left and right atrial size and function. Mitral Valve There is trace mitral regurgitation. Tricuspid Valve There is trace tricuspid regurgitation. Right ventricular systolic pressure is normal. Aortic Valve No hemodynamically significant valvular aortic stenosis. No aortic regurgitation is present. Pulmonic Valve There is no pulmonic valvular regurgitation. Great Vessels The aortic root is normal size. Pericardium/Pleura There is no pericardial effusion. Interpretation Summary The study was technically difficult with many images being suboptimal in quality. The left ventricular size, thickness and function are normal The right ventricle is normal in size and function. There is trace mitral regurgitation. There is trace tricuspid regurgitation. MD Myron Zee 02/17/2019 01:02 PM
--- NOTE | 2019-02-17 13:57 | PN ---
Teaching Attending Note Name of Resident: Grace Arreola ATTENDING PHYSICIAN STATEMENT I saw and evaluated the patient. I reviewed the resident's note and discussed the case with the resident. I agree with the resident's findings and plan as documented with exceptions below. SUBJECTIVE: patient seen and examined, chest and abdominal symptoms improved. no further nausea/vomiting. OBJECTIVE: Vital Signs Period Temp Pulse Resp BP Sys/Mccoy Pulse Ox Last 24 Hr 98.3 F-99.1 F 72-82 20-20 149-166/85-94 98-99 Intake & Output 02/14/19 02/15/19 02/16/19 02/17/19 23:59 23:59 23:59 23:59 Intake Total 400 1000 Balance 400 1000 Weight 217 lb 12.8 oz General: lying in bed in no acute distress chest; CTAB, no rales or wheezing,occasional left upper chest wall tenderness Abdomen:soft, obese, NT throughout, positive bowel sounds extremities: no edema or tremors Home Medications Medication Instructions Recorded Folic Acid - 1 mg PO DAILY #0 tablet 12/19/12 Multivitamins [Multivit ([facility] 1 udtab PO DAILY #0 tab 12/19/12 Formulary)] Tamsulosin HCl 0.4 mg PO DAILY 11/24/15 Carvedilol [Coreg -] 25 mg PO BID #60 tablet 10/25/16 Lancets/Blood Glucose Strips [Fora 1 each [facility] #90 combo..pkg 05/07/17 [id number] Strp-Lnct] Atorvastatin Ca [Lipitor] 10 mg PO HS 07/24/18 Glipizide 5 mg PO BID 07/24/18 Insulin (Novolog) [Novolog -] 8 units SQ TID 07/24/18 Famotidine [Pepcid] 40 mg PO DAILY 02/16/19 Insulin Glargine,Hum.rec.anlog 10 unit SQ AM 02/16/19 [Basaglar Kwikpen U-100] Multivitamin [One-Daily 1 each PO DAILY 02/16/19 Multi-Vitamin] Topiramate [Topamax] 50 mg PO BID 02/16/19 Active Medications Amlodipine Besylate (Norvasc -) 5 mg PO DAILY [facility] Last Admin: 02/17/19 11:13 Dose: 5 mg Aspirin (Ecotrin -) 81 mg PO DAILY [facility] Last Admin: 02/17/19 11:13 Dose: 81 mg Carvedilol (Coreg -) 25 mg PO BID [facility] Last Admin: 02/17/19 11:13 Dose: 25 mg Chlordiazepoxide HCl (Librium -) 10 mg PO Q12H PRN PRN Reason: Signs/symptoms of Withdrawal Stop: 02/20/19 05:00 Chlordiazepoxide HCl (Librium -) 10 mg PO Q8H PRN PRN Reason: Signs/symptoms of Withdrawal Stop: 02/19/19 05:00 Chlordiazepoxide HCl (Librium -) 15 mg PO Q8H [facility] Stop: 02/18/19 05:02 Chlordiazepoxide HCl (Librium -) 10 mg PO Q8H [facility] Stop: 02/18/19 19:01 Folic Acid (Folic Acid -) 1 mg PO DAILY [facility] Last Admin: 02/17/19 11:12 Dose: 1 mg Heparin Sodium (Porcine) (Heparin -) 5,000 unit SQ TID [facility] Last Admin: 02/17/19 06:57 Dose: 5,000 unit Potassium Chloride/Sodium Chloride (Ns+20 Meq Kcl -) 20 meq in 1,000 mls @ 100 mls/hr IV ASDIR [facility] Last Admin: 02/17/19 12:46 Dose: 100 mls/hr Potassium Phosphate 25 mm/ (Sodium Chloride) 508.3333 mls @ 63.542 mls/hr IVPB ONCE ONE Stop: 02/17/19 18:59 Last Admin: 02/17/19 12:45 Dose: 63.542 mls/hr Insulin Aspart (Novolog Vial Sliding Scale -) 1 vial SQ ACHS [facility]; Protocol Last Admin: 02/17/19 11:13 Dose: Not Given Ondansetron HCl (Zofran Injection) 4 mg IVPUSH Q6H PRN PRN Reason: NAUSEA Pantoprazole Sodium (Protonix Iv) 40 mg IVPUSH BID [facility] Last Admin: 02/17/19 11:13 Dose: 40 mg Tamsulosin HCl (Flomax -) 0.4 mg PO DAILY@0830 [facility] Last Admin: 02/17/19 11:13 Dose: 0.4 mg Laboratory Results - last 24 hr 02/16/19 02/16/19 02/16/19 12:25 18:44 19:30 WBC RBC Hgb Hct MCV MCH MCHC RDW Plt Count MPV Absolute Neuts (auto) Neutrophils % Lymphocytes % Monocytes % Eosinophils % Basophils % Nucleated RBC % PT with INR INR Sodium Potassium Chloride Carbon Dioxide Anion Gap BUN Creatinine Creat Clearance w eGFR POC Glucometer 129 Random Glucose Hemoglobin A1c % Lactic Acid 1.7 Calcium Phosphorus Magnesium Total Bilirubin Direct Bilirubin AST ALT Alkaline Phosphatase Troponin I Total Protein Albumin Triglycerides Cholesterol Total LDL Cholesterol HDL Cholesterol TSH Urine Color Dk yellow Urine Appearance Clear Urine pH 5.0 Ur Specific [place] 1.029 Urine Protein Trace Urine Glucose (UA) 1+ H Urine Ketones Trace H Urine Blood Negative Urine Nitrite Negative Urine Bilirubin 1+ H Urine Urobilinogen 1.0 Ur Leukocyte Esterase Negative 02/16/19 02/16/19 02/17/19 19:30 21:39 05:30 WBC RBC Hgb Hct MCV MCH MCHC RDW Plt Count MPV Absolute Neuts (auto) Neutrophils % Lymphocytes % Monocytes % Eosinophils % Basophils % Nucleated RBC % PT with INR 13.40 H INR 1.13 H Sodium Potassium Chloride Carbon Dioxide Anion Gap BUN Creatinine Creat Clearance w eGFR POC Glucometer 207 Random Glucose Hemoglobin A1c % Lactic Acid Calcium Phosphorus Magnesium Total Bilirubin Direct Bilirubin AST ALT Alkaline Phosphatase Troponin I < 0.02 Total Protein Albumin Triglycerides Cholesterol Total LDL Cholesterol HDL Cholesterol TSH Urine Color Urine Appearance Urine pH Ur Specific [place] Urine Protein Urine Glucose (UA) Urine Ketones Urine Blood Urine Nitrite Urine Bilirubin Urine Urobilinogen Ur Leukocyte Esterase 02/17/19 02/17/19 02/17/19 05:30 05:30 05:30 WBC RBC Hgb Hct MCV MCH MCHC RDW Plt Count MPV Absolute Neuts (auto) Neutrophils % Lymphocytes % Monocytes % Eosinophils % Basophils % Nucleated RBC % PT with INR INR Sodium 141 Potassium 3.4 L Chloride 106 Carbon Dioxide 26 Anion Gap 9 BUN 9 Creatinine 0.8 Creat Clearance w eGFR 100.36 POC Glucometer Random Glucose 120 H Hemoglobin A1c % 5.4 Lactic Acid Calcium 8.1 L Phosphorus 2.0 L Magnesium 1.6 L Total Bilirubin 1.7 H Direct Bilirubin 0.7 H Cancelled AST 131 H ALT 69 H Alkaline Phosphatase 76 Troponin I Total Protein 7.3 Albumin 3.7 Triglycerides 69 Cholesterol 168 Total LDL Cholesterol 84 HDL Cholesterol 72 H TSH 3.08 Urine Color Urine Appearance Urine pH Ur Specific [place] Urine Protein Urine Glucose (UA) Urine Ketones Urine Blood Urine Nitrite Urine Bilirubin Urine Urobilinogen Ur Leukocyte Esterase 02/17/19 02/17/19 06:00 06:52 WBC 4.9 RBC 4.95 Hgb 15.5 Hct 46.0 MCV 92.9 MCH 31.3 MCHC 33.7 RDW 15.3 Plt Count 106 L MPV 7.9 Absolute Neuts (auto) 2.7 Neutrophils % 55.0 Lymphocytes % 33.4 Monocytes % 8.8 Eosinophils % 1.4 D Basophils % 1.4 Nucleated RBC % 0 PT with INR INR Sodium Potassium Chloride Carbon Dioxide Anion Gap BUN Creatinine Creat Clearance w eGFR POC Glucometer 162 Random Glucose Hemoglobin A1c % Lactic Acid Calcium Phosphorus Magnesium Total Bilirubin Direct Bilirubin AST ALT Alkaline Phosphatase Troponin I Total Protein Albumin Triglycerides Cholesterol Total LDL Cholesterol HDL Cholesterol TSH Urine Color Urine Appearance Urine pH Ur Specific [place] Urine Protein Urine Glucose (UA) Urine Ketones Urine Blood Urine Nitrite Urine Bilirubin Urine Urobilinogen Ur Leukocyte Esterase Microbiology 02/16/19 12:25 Urine - Urine Clean Catch Urine Culture - Final ASSESSMENT AND PLAN: 53 yom with pMHx of CAD s/p LAD PCI 2009 (per patient), HTN, HLD, IDDM, ETOH abuse, hepatic steatosis, pancreatitis admitted with hypoglycemia, ETOH intoxication and atypical chest pain. -Hypoglycemia in the setting of continuation of insulin/poor oral intake -ETOH abuse/dependence/ACute intoxication -Acute Alcohol withdrawal -Abnormal LFTs, suspect alcoholic hepatitis -Atypical chest pain -Hypokalemia -Hypomagnesemia -Hypophosphatemia -CAD s/p LAD PCI ?2009 -IDDM -Hepatic steatosis Plan: Improved. Advance po as tolerated. IVF, replete K/Mg/phos. Continue K in IVF. Change ISS to start > 150. A1c noted. Will need to resume insulin at lower dose on dc based on blood sugar readings. Concerns for taking insulin, not eating and consuming alcohol at home. Detailed counseling provided to avoid the same. Rapid librium taper. Patient declines park care. telemetry with no events. Cardiology input/2D echo noted. Change protonix to 40 mg daily. Continue coreg. Hold statin, trend LFTs. Detox consult. DVTPPX heparin with close monitoring. Dispo home in 24-48 hours if continues to improve. Plan discussed with patient and nursing in detail, all questions answered.
--- NOTE | 2019-02-17 14:36 | PN ---
Physical Exam: SUBJECTIVE: Patient seen and examined; more shaking; +hallucination; anxiety OBJECTIVE: Vital Signs Period Temp Pulse Resp BP Sys/Mccoy Pulse Ox Last 24 Hr 98.3 F-99.1 F 72-82 20-20 149-166/85-94 98-99 GENERAL: The patient is awake, alert, and anxious; shaky; LUNGS: Breath sounds equal, clear to auscultation bilaterally, no wheezes, no crackles, no accessory muscle use. HEART: Regular rate and rhythm, S1, S2 without murmur, rub or gallop. ABDOMEN: Soft, nontender, nondistended, normoactive bowel sounds, no guarding, no rebound, no hepatosplenomegaly, no masses. EXTREMITIES: 2+ pulses, warm, well-perfused, no edema. NEUROLOGICAL: anxiety; AAOx3; seeing wall moving PSYCH: Normal mood, normal affect. SKIN: Warm, dry, normal turgor, no rashes or lesions noted Laboratory Results - last 24 hr 02/16/19 02/16/19 02/16/19 12:25 18:44 19:30 WBC RBC Hgb Hct MCV MCH MCHC RDW Plt Count MPV Absolute Neuts (auto) Neutrophils % Lymphocytes % Monocytes % Eosinophils % Basophils % Nucleated RBC % PT with INR INR Sodium Potassium Chloride Carbon Dioxide Anion Gap BUN Creatinine Creat Clearance w eGFR POC Glucometer 129 Random Glucose Hemoglobin A1c % Lactic Acid 1.7 Calcium Phosphorus Magnesium Total Bilirubin Direct Bilirubin AST ALT Alkaline Phosphatase Troponin I Total Protein Albumin Triglycerides Cholesterol Total LDL Cholesterol HDL Cholesterol TSH Urine Color Dk yellow Urine Appearance Clear Urine pH 5.0 Ur Specific [place] 1.029 Urine Protein Trace Urine Glucose (UA) 1+ H Urine Ketones Trace H Urine Blood Negative Urine Nitrite Negative Urine Bilirubin 1+ H Urine Urobilinogen 1.0 Ur Leukocyte Esterase Negative 02/16/19 02/16/19 02/17/19 19:30 21:39 05:30 WBC RBC Hgb Hct MCV MCH MCHC RDW Plt Count MPV Absolute Neuts (auto) Neutrophils % Lymphocytes % Monocytes % Eosinophils % Basophils % Nucleated RBC % PT with INR 13.40 H INR 1.13 H Sodium Potassium Chloride Carbon Dioxide Anion Gap BUN Creatinine Creat Clearance w eGFR POC Glucometer 207 Random Glucose Hemoglobin A1c % Lactic Acid Calcium Phosphorus Magnesium Total Bilirubin Direct Bilirubin AST ALT Alkaline Phosphatase Troponin I < 0.02 Total Protein Albumin Triglycerides Cholesterol Total LDL Cholesterol HDL Cholesterol TSH Urine Color Urine Appearance Urine pH Ur Specific Ran[place] Urine Protein Urine Glucose (UA) Urine Ketones Urine Blood Urine Nitrite Urine Bilirubin Urine Urobilinogen Ur Leukocyte Esterase 02/17/19 02/17/19 02/17/19 05:30 05:30 05:30 WBC RBC Hgb Hct MCV MCH MCHC RDW Plt Count MPV Absolute Neuts (auto) Neutrophils % Lymphocytes % Monocytes % Eosinophils % Basophils % Nucleated RBC % PT with INR INR Sodium 141 Potassium 3.4 L Chloride 106 Carbon Dioxide 26 Anion Gap 9 BUN 9 Creatinine 0.8 Creat Clearance w eGFR 100.36 POC Glucometer Random Glucose 120 H Hemoglobin A1c % 5.4 Lactic Acid Calcium 8.1 L Phosphorus 2.0 L Magnesium 1.6 L Total Bilirubin 1.7 H Direct Bilirubin 0.7 H Cancelled AST 131 H ALT 69 H Alkaline Phosphatase 76 Troponin I Total Protein 7.3 Albumin 3.7 Triglycerides 69 Cholesterol 168 Total LDL Cholesterol 84 HDL Cholesterol 72 H TSH 3.08 Urine Color Urine Appearance Urine pH Ur Specific Ran[place] Urine Protein Urine Glucose (UA) Urine Ketones Urine Blood Urine Nitrite Urine Bilirubin Urine Urobilinogen Ur Leukocyte Esterase 02/17/19 02/17/19 06:00 06:52 WBC 4.9 RBC 4.95 Hgb 15.5 Hct 46.0 MCV 92.9 MCH 31.3 MCHC 33.7 RDW 15.3 Plt Count 106 L MPV 7.9 Absolute Neuts (auto) 2.7 Neutrophils % 55.0 Lymphocytes % 33.4 Monocytes % 8.8 Eosinophils % 1.4 D Basophils % 1.4 Nucleated RBC % 0 PT with INR INR Sodium Potassium Chloride Carbon Dioxide Anion Gap BUN Creatinine Creat Clearance w eGFR POC Glucometer 162 Random Glucose Hemoglobin A1c % Lactic Acid Calcium Phosphorus Magnesium Total Bilirubin Direct Bilirubin AST ALT Alkaline Phosphatase Troponin I Total Protein Albumin Triglycerides Cholesterol Total LDL Cholesterol HDL Cholesterol TSH Urine Color Urine Appearance Urine pH Ur Specific [place] Urine Protein Urine Glucose (UA) Urine Ketones Urine Blood Urine Nitrite Urine Bilirubin Urine Urobilinogen Ur Leukocyte Esterase Active Medications Generic Name Dose Route Start Last Admin Trade Name Freq PRN Reason Stop Dose Admin Amlodipine Besylate 5 mg 02/17/19 10:00 02/17/19 11:13 Norvasc - PO 5 mg DAILY [facility] Administration Aspirin 81 mg 02/16/19 16:30 02/17/19 11:13 Ecotrin - PO 81 mg DAILY [facility] Administration Carvedilol 25 mg 02/16/19 22:00 02/17/19 11:13 Coreg - PO 25 mg BID [facility] Administration Chlordiazepoxide HCl 10 mg 02/19/19 05:00 Librium - PO 02/20/19 05:00 Q12H PRN Signs/symptoms of Withdrawal Chlordiazepoxide HCl 10 mg 02/17/19 09:22 Librium - PO 02/19/19 05:00 Q8H PRN Signs/symptoms of Withdrawal Chlordiazepoxide HCl 15 mg 02/17/19 21:01 Librium - PO 02/18/19 05:02 Q8H [facility] Chlordiazepoxide HCl 10 mg 02/18/19 11:00 Librium - PO 02/18/19 19:01 Q8H [facility] Folic Acid 1 mg 02/17/19 10:00 02/17/19 11:12 Folic Acid - PO 1 mg DAILY [facility] Administration Heparin Sodium (Porcine) 5,000 unit 02/16/19 22:00 02/17/19 06:57 Heparin - SQ 5,000 unit TID [facility] Administration Potassium Chloride/Sodium Chloride 20 meq in 1,000 mls @ 100 mls/hr 02/17/19 05:00 02/17/19 12:46 Ns+20 Meq Kcl - IV 100 mls/hr ASDIR [facility] Administration Potassium Phosphate 25 mm/ 508.3333 mls @ 63.542 mls/hr 02/17/19 11:00 12:45 Sodium Chloride IVPB 02/17/19 18:59 63.542 mls/hr ONCE ONE Administration Insulin Aspart 1 vial 02/17/19 13:59 Novolog Vial Sliding Scale - SQ ACHS [facility] Protocol Multivitamins/Minerals/Vitamin C 1 tab 02/17/19 14:00 Tab-A-Vit - PO DAILY [facility] Ondansetron HCl 4 mg 02/16/19 18:14 Zofran Injection IVPUSH Q6H PRN NAUSEA Pantoprazole Sodium 40 mg 02/18/19 10:00 Protonix - PO DAILY [facility] Tamsulosin HCl 0.4 mg 02/17/19 08:30 02/17/19 11:13 Flomax - PO 0.4 mg DAILY@0830 [facility] Administration Thiamine HCl 100 mg 02/17/19 14:00 Vitamin B1 - PO DAILY [facility] ASSESSMENT/PLAN: This is a 53 year old ETOH abuser with CAD s/p stent, DM< HTN, HLD< who presents with chest pain, associated abdominal pain, after retching, vomiting. #Chest pain; most likely musculoskeletal in nature due to retching/vomiting, vs GERD, VS gastrits, l- -ACS ruled out; trop negative ; echo negative; no further cardiac workup a this time -statin, bb, asa #abdominal pain; most likely related to alcohol abuse; gastritis, GERD,; -protonix -maalox -alcohol cessation -CT abdomen/pelvis negative for acute pathology; +hepatomegaly with fatty liver #elevated transaminases ; improving -AST>ALT goes with alcohol induced -liver steatosis on CT -alcohol cessation -trend enzymes #alcohol abuse; CIWA score around ten; > 14 warrants medications for withdrawal -refuses park care -start librium taper -counselling for cessation #lactic aciodosis: most likely secondary to alcohol abuse; resolved -IV hydration #Hypokalemia: replace #hypoglycemia with history of DM -monitor BGM -was given dextrose -will monitor ACHS; insulin SS #CAD -BB, asa, statin #HTN hx VTE: heparin sq GI ppl; protonix Disposition: monitor tele Visit type - Emergency Visit Emergency Visit: Yes ED Registration Date: 02/16/19 Care time: The patient presented to the Emergency Department on the above date and was hospitalized for further evaluation of their emergent condition. - New Patient This patient is new to me today: No - Critical Care Critical Care patient: No
[2019-02-17] MEDS ORDERED: chlordiazePOXIDE 5 MG CAPSULE ONE (15:40)
[2019-02-17] MEDS: chlordiazePOXIDE HCL 10 MG CAPSULE PO PRN (15:42)
[2019-02-17] MEDS: MULTIVITAMINS (DAILY MVI) TABLET (FP) PO SCH (15:43)
[2019-02-17] MEDS: THIAMINE HCL 100 MG TABLET (FP) PO SCH (15:43)
[2019-02-17] MEDS: chlordiazePOXIDE 5 MG CAPSULE PO SCH (22:20)
[2019-02-18] MEDS: chlordiazePOXIDE 5 MG CAPSULE PO SCH ×3 (06:11→21:25)
[2019-02-18] MEDS: HEPARIN NA (PORCINE) 5,000 UNITS/ML 1ML VIAL SQ SCH ×3 (06:11→21:25)
[2019-02-18] MEDS: INSULIN SLIDING SCALE (NOVOLOG) 1 VIAL SQ SCH ×3 (06:32→21:26)
[2019-02-18] MEDS: SODIUM CHLORIDE 0.9%/KCL 20 MEQ/1,000 ML INFUS.BAG IV SCH (06:32)
[2019-02-18] MEDS: amLODIPine BESYLATE 5 MG TABLET (FP) PO SCH ×2 (06:36→11:34)
[2019-02-18] MEDS ORDERED: chlordiazePOXIDE 5 MG CAPSULE ONE ×2 (08:06→18:09)
[2019-02-18] MEDS: chlordiazePOXIDE HCL 10 MG CAPSULE PO PRN ×2 (08:20→18:12)
[2019-02-18 08:51] LABS: BLOOD UREA NITROGEN 9 mg/dL (7-18); GLUCOSE,RANDOM 136 mg/dL (74-106)
[2019-02-18 08:52] LABS: ANION GAP 13 MMOL/L (8-16); CALCIUM 8.3 mg/dL (8.5-10.1); CHLORIDE 106 mmol/L (98-107); CO2 20 mmol/L (21-32); CREATININE 0.7 mg/dL (0.55-1.3); MAGNESIUM 1.6 mg/dL (1.8-2.4); PHOSPHOROUS 1.9 mg/dL (2.5-4.9); POTASSIUM 3.5 mmol/L (3.5-5.1); SODIUM 139 mmol/L (136-145)
[2019-02-18] MEDS ORDERED: MAGNESIUM SULF 50% (8.12 MEQ/2 ML-1 GM VIAL) IVPB ONE (09:10)
[2019-02-18] MEDS ORDERED: SODIUM PHOSPHATE - 25 MM in SODIUM CHLORIDE 500 ML IVPB ONE (09:10)
--- NOTE | 2019-02-18 11:21 | PN ---
Progress Note (short form) - Note Progress Note: s: no sob palps dizzy; cp better o: Vital Signs Period Temp Pulse Resp BP Sys/Mccoy Pulse Ox Last 24 Hr 98.1 F-99.3 F 82-92 20-20 135-160/84-103 98-98 nad no jvd rrr s1s2 no mrg cta bl nl eff aao3 no le e/c/c abd nt nd pos bs no jaundice diaphoresis chest wall tenderness, reproduces his cp Current Medications Generic Name Dose Route Start Last Admin Trade Name Freq PRN Reason Stop Dose Admin Amlodipine Besylate 5 mg 02/17/19 10:00 02/18/19 06:36 Norvasc - PO 5 mg DAILY [facility] Administration Aspirin 81 mg 02/16/19 16:30 02/17/19 11:13 Ecotrin - PO 81 mg DAILY [facility] Administration Carvedilol 25 mg 02/16/19 22:00 02/17/19 22:20 Coreg - PO 25 mg BID [facility] Administration Chlordiazepoxide HCl 10 mg 02/19/19 05:00 Librium - PO 02/20/19 05:00 Q12H PRN Signs/symptoms of Withdrawal Chlordiazepoxide HCl 10 mg 02/17/19 09:22 02/18/19 08:20 Librium - PO 02/19/19 05:00 10 mg Q8H PRN Administration Signs/symptoms of Withdrawal Chlordiazepoxide HCl 10 mg 02/18/19 11:00 Librium - PO 02/18/19 19:01 Q8H [facility] Folic Acid 1 mg 02/17/19 10:00 02/17/19 11:12 Folic Acid - PO 1 mg DAILY [facility] Administration Heparin Sodium (Porcine) 5,000 unit 02/16/19 22:00 02/18/19 06:11 Heparin - SQ 5,000 unit TID [facility] Administration Potassium Chloride/Sodium Chloride 20 meq in 1,000 mls @ 100 mls/hr 02/17/19 05:00 02/18/19 06:32 Ns+20 Meq Kcl - IV 100 mls/hr ASDIR [facility] Administration Sodium Phosphate 25 mm/ Sodium 508.3333 mls @ 62.5 mls/hr 02/18/19 09:10 Chloride IVPB 02/18/19 17:17 ONCE ONE Insulin Aspart 1 vial 02/17/19 13:59 02/18/19 06:32 Novolog Vial Sliding Scale - SQ Not Given ACHS [facility] Protocol Magnesium Oxide 800 mg 02/18/19 10:00 Mag-Ox - PO 02/22/19 10:01 DAILY [facility] Multivitamins/Minerals/Vitamin C 1 tab 02/17/19 14:00 02/17/19 15:43 Tab-A-Vit - PO 1 tab DAILY [facility] Administration Ondansetron HCl 4 mg 02/16/19 18:14 Zofran Injection IVPUSH Q6H PRN NAUSEA Pantoprazole Sodium 40 mg 02/18/19 10:00 Protonix - PO DAILY [facility] Tamsulosin HCl 0.4 mg 02/17/19 08:30 02/17/19 11:13 Flomax - PO 0.4 mg DAILY@0830 [facility] Administration Thiamine HCl 100 mg 02/17/19 14:00 02/17/19 15:43 Vitamin B1 - PO 100 mg DAILY [facility] Administration CBC, BMP 02/17/19 06:00 02/18/19 05:30 ecg: sr, old rbbb cxr: no chf tele: sr Echo 08/2015: normal LV/RV size and function, no sig valv abn echo 01/2019: tds; nl lv/rv, no sig valve path, nl rvsp Assessment/Plan 53 year old male with significant past medical history of HTN, HPL, CAD s/p prior LAD PCI 4-5 years ago, ETOH abuse who presents to the ED complaining of several days of chest pain and vomiting while he has been drinking etoh heavily. cp: -longstanding atyp CP with clearly non-anginal features, -presently with similar atyp CP occurring after vomiting. no ischemic ecg changes and trop neg x2. Echo unremarkable. No further cardiac w/u is warranted at this time and ok for dc from cardiac pov. CAD: -prior PCI of LAD (for ? angina vs atyp cp with incidental finding on cath); residual nonobstr dz then with no angina or ischemia since -plan as above -cont BB, statin, asa hld: -cont statin HTN: -cont bb, ccb etoh abuse: -cessation discussed
[2019-02-18] MEDS: MULTIVITAMINS (DAILY MVI) TABLET (FP) PO SCH (11:33)
[2019-02-18] MEDS: ASPIRIN COATED 81 MG TABLET.EC PO SCH (11:33)
[2019-02-18] MEDS: TAMSULOSIN HCL 0.4 MG CAP PO SCH (11:33)
[2019-02-18] MEDS: PANTOPRAZOLE 40 MG TABLET (FP) PO SCH (11:33)
[2019-02-18] MEDS: FOLIC ACID 1 MG TABLET (FP) PO SCH (11:33)
[2019-02-18] MEDS: CARVEDILOL 25 MG TABLET (FP) PO SCH ×2 (11:33→21:25)
[2019-02-18] MEDS: MAGNESIUM OXIDE 400 MG TABLET (FP) PO SCH (11:34)
[2019-02-18] MEDS: THIAMINE HCL 100 MG TABLET (FP) PO SCH (11:34)
--- NOTE | 2019-02-18 15:49 | PN ---
Teaching Attending Note Name of Resident: Grace Arreola ATTENDING PHYSICIAN STATEMENT I saw and evaluated the patient. I reviewed the resident's note and discussed the case with the resident. I agree with the resident's findings and plan as documented with exceptions below. SUBJECTIVE: Patient seen and examined. denies any chest pain or abdominal pain, no nausea, vomiting. Reports hallucinations to nursing, denies currently. OBJECTIVE: Vital Signs Period Temp Pulse Resp BP Sys/Mccoy Pulse Ox Last 24 Hr 98.1 F-100.0 F 77-92 20-20 96-160/58-103 98-98 Intake & Output 02/15/19 02/16/19 02/17/19 02/18/19 23:59 23:59 23:59 23:59 Intake Total 400 1350 680 Output Total 300 Balance 400 1350 380 Weight 217 lb 12.8 oz 218 lb 8 oz General: sitting in bed in no acute distress Chest: CTAB, no rales or wheezing Abdomen:Soft, obese, NT Extremities: no edema or tremors Home Medications Medication Instructions Recorded Folic Acid - 1 mg PO DAILY #0 tablet 12/19/12 Multivitamins [Multivit ([facility] 1 udtab PO DAILY #0 tab 12/19/12 Formulary)] Tamsulosin HCl 0.4 mg PO DAILY 11/24/15 Carvedilol [Coreg -] 25 mg PO BID #60 tablet 10/25/16 Lancets/Blood Glucose Strips [Fora 1 each AC #90 combo..pkg 05/07/17 [id number] Strp-Lnct] Atorvastatin Ca [Lipitor] 10 mg PO HS 07/24/18 Glipizide 5 mg PO BID 07/24/18 Insulin (Novolog) [Novolog -] 8 units SQ TID 07/24/18 Famotidine [Pepcid] 40 mg PO DAILY 02/16/19 Insulin Glargine,Hum.rec.anlog 10 unit SQ AM 02/16/19 [Basaglar Kwikpen U-100] Multivitamin [One-Daily 1 each PO DAILY 02/16/19 Multi-Vitamin] Topiramate [Topamax] 50 mg PO BID 02/16/19 Active Medications Amlodipine Besylate (Norvasc -) 5 mg PO DAILY [facility] Last Admin: 02/18/19 11:34 Dose: Not Given Aspirin (Ecotrin -) 81 mg PO DAILY [facility] Last Admin: 02/18/19 11:33 Dose: 81 mg Carvedilol (Coreg -) 25 mg PO BID [facility] Last Admin: 02/18/19 11:33 Dose: 25 mg Chlordiazepoxide HCl (Librium -) 10 mg PO Q12H PRN PRN Reason: Signs/symptoms of Withdrawal Stop: 02/20/19 05:00 Chlordiazepoxide HCl (Librium -) 10 mg PO Q8H PRN PRN Reason: Signs/symptoms of Withdrawal Stop: 02/19/19 05:00 Last Admin: 02/18/19 08:20 Dose: 10 mg Chlordiazepoxide HCl (Librium -) 10 mg PO Q8H [facility] Stop: 02/18/19 19:01 Last Admin: 02/18/19 11:33 Dose: 10 mg Folic Acid (Folic Acid -) 1 mg PO DAILY [facility] Last Admin: 02/18/19 11:33 Dose: 1 mg Heparin Sodium (Porcine) (Heparin -) 5,000 unit SQ TID [facility] Last Admin: 02/18/19 06:11 Dose: 5,000 unit Potassium Chloride/Sodium Chloride (Ns+20 Meq Kcl -) 20 meq in 1,000 mls @ 100 mls/hr IV ASDIR [facility] Last Admin: 02/18/19 06:32 Dose: 100 mls/hr Sodium Phosphate 25 mm/ Sodium (Chloride) 508.3333 mls @ 62.5 mls/hr IVPB ONCE ONE Stop: 02/18/19 17:17 Last Admin: 02/18/19 12:55 Dose: 62.5 mls/hr Insulin Aspart (Novolog Vial Sliding Scale -) 1 vial SQ ACHS [facility]; Protocol Last Admin: 02/18/19 12:56 Dose: Not Given Magnesium Oxide (Mag-Ox -) 800 mg PO DAILY [facility] Stop: 02/22/19 10:01 Last Admin: 02/18/19 11:34 Dose: 800 mg Multivitamins/Minerals/Vitamin C (Tab-A-Vit -) 1 tab PO DAILY [facility] Last Admin: 02/18/19 11:33 Dose: 1 tab Ondansetron HCl (Zofran Injection) 4 mg IVPUSH Q6H PRN PRN Reason: NAUSEA Pantoprazole Sodium (Protonix -) 40 mg PO DAILY [facility] Last Admin: 02/18/19 11:33 Dose: 40 mg Tamsulosin HCl (Flomax -) 0.4 mg PO DAILY@0830 [facility] Last Admin: 02/18/19 11:33 Dose: 0.4 mg Thiamine HCl (Vitamin B1 -) 100 mg PO DAILY [facility] Last Admin: 02/18/19 11:34 Dose: 100 mg Laboratory Results - last 24 hr 02/17/19 02/17/19 02/18/19 17:49 21:15 05:30 Sodium 139 Potassium 3.5 Chloride 106 Carbon Dioxide 20 L Anion Gap 13 BUN 9 Creatinine 0.7 Creat Clearance w eGFR 117.08 POC Glucometer 177 143 Random Glucose 136 H Calcium 8.3 L Phosphorus 1.9 L Magnesium 1.6 L 02/18/19 06:26 Sodium Potassium Chloride Carbon Dioxide Anion Gap BUN Creatinine Creat Clearance w eGFR POC Glucometer 146 Random Glucose Calcium Phosphorus Magnesium Microbiology 02/16/19 12:25 Urine - Urine Clean Catch Urine Culture - Final ASSESSMENT AND PLAN: 53 yom with pMHx of CAD s/p LAD PCI 2009 (per patient), HTN, HLD, IDDM, ETOH abuse, hepatic steatosis, pancreatitis admitted with hypoglycemia, ETOH intoxication and atypical chest pain. -Hypoglycemia in the setting of continuation of insulin/poor oral intake -ETOH abuse/dependence/ACute intoxication -Acute Alcohol withdrawal -Abnormal LFTs, suspect alcoholic hepatitis -Atypical chest pain -Hypokalemia -Hypomagnesemia -Hypophosphatemia -CAD s/p LAD PCI ?2009 -IDDM -Hepatic steatosis Plan: Improved. Tolerating diet well. D/c IVF Aggressively replete K/Mg/phos. Hypertensive, reported hallucinations. Continue Librium detox. ETOH cessation counseling. A1c noted. ISS. Will need to resume insulin at lower dose on dc based on blood sugar readings. Concerns for taking insulin, not eating and consuming alcohol at home. Detailed counseling provided to avoid the same. Patient declines park care. telemetry with no events. d/c tele. Cardiology input/2D echo noted. Protonix to 40 mg daily. Continue coreg. Hold statin, trend LFTs. DVTPPX heparin with close monitoring. Dispo home in 24-48 hours if continues to improve. Plan discussed with patient and nursing in detail, all questions answered.
--- NOTE | 2019-02-18 19:20 | PN ---
Physical Exam: SUBJECTIVE: Patient seen and examined; on librium taper; less shaky OBJECTIVE: Vital Signs Period Temp Pulse Resp BP Sys/Mccoy Pulse Ox Last 24 Hr 98.3 F-100.0 F 77-92 20-20 96-160/58-103 98-98 GENERAL: The patient is awake, alert, and fully oriented, in no acute distress. LUNGS: Breath sounds equal, clear to auscultation bilaterally, no wheezes, no crackles, no accessory muscle use. HEART: Regular rate and rhythm, S1, S2 without murmur, rub or gallop. ABDOMEN: Soft, nontender, nondistended, normoactive bowel sounds, no guarding, no rebound, no hepatosplenomegaly, no masses. EXTREMITIES: 2+ pulses, warm, well-perfused, no edema. NEUROLOGICAL: Cranial nerves II through XII grossly intact. Normal speech, gait not observed. Laboratory Results - last 24 hr 02/17/19 02/18/19 02/18/19 21:15 05:30 06:26 Sodium 139 Potassium 3.5 Chloride 106 Carbon Dioxide 20 L Anion Gap 13 BUN 9 Creatinine 0.7 Creat Clearance w eGFR 117.08 POC Glucometer 143 146 Random Glucose 136 H Calcium 8.3 L Phosphorus 1.9 L Magnesium 1.6 L Active Medications Generic Name Dose Route Start Last Admin Trade Name Freq PRN Reason Stop Dose Admin Amlodipine Besylate 5 mg 02/17/19 10:00 02/18/19 11:34 Norvasc - PO Not Given DAILY [facility] Aspirin 81 mg 02/16/19 16:30 02/18/19 11:33 Ecotrin - PO 81 mg DAILY [facility] Administration Carvedilol 25 mg 02/16/19 22:00 02/18/19 11:33 Coreg - PO 25 mg BID [facility] Administration Chlordiazepoxide HCl 10 mg 02/19/19 05:00 Librium - PO 02/20/19 05:00 Q12H PRN Signs/symptoms of Withdrawal Chlordiazepoxide HCl 10 mg 02/17/19 09:22 02/18/19 18:12 Librium - PO 02/19/19 05:00 10 mg Q8H PRN Administration Signs/symptoms of Withdrawal Folic Acid 1 mg 02/17/19 10:00 02/18/19 11:33 Folic Acid - PO 1 mg DAILY [facility] Administration Heparin Sodium (Porcine) 5,000 unit 02/16/19 22:00 02/18/19 14:13 Heparin - SQ 5,000 unit TID [facility] Administration Insulin Aspart 1 vial 02/17/19 13:59 02/18/19 12:56 Novolog Vial Sliding Scale - SQ Not Given ACHS [facility] Protocol Magnesium Oxide 800 mg 02/18/19 10:00 02/18/19 11:34 Mag-Ox - PO 02/22/19 10:01 800 mg DAILY [facility] Administration Multivitamins/Minerals/Vitamin C 1 tab 02/17/19 14:00 02/18/19 11:33 Tab-A-Vit - PO 1 tab DAILY [facility] Administration Ondansetron HCl 4 mg 02/16/19 18:14 Zofran Injection IVPUSH Q6H PRN NAUSEA Pantoprazole Sodium 40 mg 02/18/19 10:00 02/18/19 11:33 Protonix - PO 40 mg DAILY [facility] Administration Tamsulosin HCl 0.4 mg 02/17/19 08:30 02/18/19 11:33 Flomax - PO 0.4 mg DAILY@0830 [facility] Administration Thiamine HCl 100 mg 02/17/19 14:00 02/18/19 11:34 Vitamin B1 - PO 100 mg DAILY [facility] Administration ASSESSMENT/PLAN: This is a 53 year old ETOH abuser with CAD s/p stent, DM< HTN, HLD< who presents with chest pain, associated abdominal pain, after retching, vomiting. #Chest pain; most likely musculoskeletal in nature due to retching/vomiting, vs GERD, VS gastrits, l- -ACS ruled out; trop negative ; echo negative; no further cardiac workup a this time -statin, bb, asa #abdominal pain; most likely related to alcohol abuse; gastritis, GERD,; -protonix -maalox -alcohol cessation -CT abdomen/pelvis negative for acute pathology; +hepatomegaly with fatty liver #elevated transaminases ; improving -AST>ALT goes with alcohol induced -liver steatosis on CT -alcohol cessation -trend enzymes #alcohol abuse; CIWA score around ten; > 14 warrants medications for withdrawal -refuses park care -cont librium taper -counselling for cessation #lactic aciodosis: most likely secondary to alcohol abuse; resolved -IV hydration #Hypokalemia: replace #hypoglycemia with history of DM -monitor BGM -was given dextrose -will monitor ACHS; insulin SS #CAD -BB, asa, statin #HTN hx VTE: heparin sq GI ppl; protonix Disposition: monitor tele Visit type - Emergency Visit Emergency Visit: Yes ED Registration Date: 02/16/19 Care time: The patient presented to the Emergency Department on the above date and was hospitalized for further evaluation of their emergent condition. - New Patient This patient is new to me today: No - Critical Care Critical Care patient: No
[2019-02-18] MEDS ORDERED: chlordiazePOXIDE HCL 10 MG CAPSULE PO SCH (21:01)
[2019-02-19] MEDS ORDERED: chlordiazePOXIDE 5 MG CAPSULE PO PRN (05:00)
[2019-02-19] MEDS: INSULIN SLIDING SCALE (NOVOLOG) 1 VIAL SQ SCH ×3 (06:23→17:10)
[2019-02-19] MEDS: HEPARIN NA (PORCINE) 5,000 UNITS/ML 1ML VIAL SQ SCH ×2 (06:24→15:09)
[2019-02-19 06:59] VITALS: TEMP 98.8
[2019-02-19 08:37] LABS: BASO % 1.4 % (0-2.0); EOS % 1.9 % (0-4.5); HEMATOCRIT 45.2 % (35.4-49); HEMOGLOBIN 15.6 GM/dL (11.7-16.9); LYMPH % 29.5 % (8-40); MCH 32.6 pg (25.7-33.7); MCHC 34.6 g/dl (32.0-35.9); MEAN CELL VOLUME 94.2 fl (80-96); MEAN PLT VOLUME 8.1 fl (7.5-11.1); MONO % 11.5 % (3.8-10.2); NEUT % 55.7 % (42.8-82.8); PLATELET COUNT 130 K/MM3 (134-434); RDW 15.3 % (11.9-15.9)
[2019-02-19 09:06] LABS: ALBUMIN 3.5 g/dl (3.4-5.0); ALK PHOS 71 U/L (45-117); ANION GAP 6 MMOL/L (8-16); BILIRUBIN,DIRECT 0.6 mg/dL (0.0-0.2); BILIRUBIN,TOTAL 1.4 mg/dL (0.2-1); BLOOD UREA NITROGEN 9 mg/dL (7-18); CALCIUM 8.7 mg/dL (8.5-10.1); CHLORIDE 105 mmol/L (98-107); CO2 26 mmol/L (21-32); CREATININE 0.6 mg/dL (0.55-1.3); GLUCOSE,RANDOM 119 mg/dL (74-106); POTASSIUM 3.7 mmol/L (3.5-5.1); SGOT/AST 86 U/L (15-37); SGPT/ALT 55 U/L (13-61); SODIUM 137 mmol/L (136-145); TOT PROT 7.1 g/dl (6.4-8.2)
[2019-02-19] MEDS: FOLIC ACID 1 MG TABLET (FP) PO SCH (09:31)
[2019-02-19] MEDS: ASPIRIN COATED 81 MG TABLET.EC PO SCH (09:32)
[2019-02-19] MEDS: TAMSULOSIN HCL 0.4 MG CAP PO SCH (09:32)
[2019-02-19] MEDS: CARVEDILOL 25 MG TABLET (FP) PO SCH (09:33)
[2019-02-19] MEDS: amLODIPine BESYLATE 5 MG TABLET (FP) PO SCH (09:33)
[2019-02-19] MEDS: PANTOPRAZOLE 40 MG TABLET (FP) PO SCH (09:33)
[2019-02-19] MEDS: MAGNESIUM OXIDE 400 MG TABLET (FP) PO SCH (09:34)
[2019-02-19] MEDS: MULTIVITAMINS (DAILY MVI) TABLET (FP) PO SCH (09:34)
[2019-02-19] MEDS: THIAMINE HCL 100 MG TABLET (FP) PO SCH (09:34)
--- NOTE | 2019-02-19 09:40 | DS ---
Physical Exam: SUBJECTIVE: Patient seen and examined,f eels well, no anxiety, tremors or hallucinations. no chest or abdominal pain or vomiting noted. OBJECTIVE: Vital Signs Period Temp Pulse Resp BP Sys/Mccoy Pulse Ox Last 24 Hr 98.5 F-100.0 F 77-91 20-20 96-159/58-87 98 PHYSICAL EXAM GENERAL: The patient is awake, alert, and fully oriented, in no acute distress. HEAD: Normal with no signs of trauma. EYES: PERRL, extraocular movements intact, sclera anicteric, conjunctiva clear. ENT: Ears normal, nares patent, oropharynx clear without exudates, moist mucous membranes. NECK: Trachea midline, full range of motion, supple. LUNGS: Breath sounds equal, clear to auscultation bilaterally, no wheezes, no crackles, no accessory muscle use. HEART: Regular rate and rhythm, S1, S2 ABDOMEN: Soft, nontender, nondistended, normoactive bowel sounds, no guarding, no rebound EXTREMITIES: 2+ pulses, warm, well-perfused, no edema. No tremors noted NEUROLOGICAL: Cranial nerves II through XII grossly intact. Normal speech, gait not observed. PSYCH: Normal mood, normal affect. SKIN: Warm, dry, normal turgor, no rashes or lesions noted. LABS Laboratory Results - last 24 hr 02/18/19 02/18/19 02/19/19 05:30 20:52 05:33 WBC RBC Hgb Hct MCV MCH MCHC RDW Absolute Neuts (auto) Neutrophils % Lymphocytes % Monocytes % Eosinophils % Basophils % Nucleated RBC % Sodium 139 Potassium 3.5 Chloride 106 Carbon Dioxide 20 L Anion Gap 13 BUN 9 Creatinine 0.7 Creat Clearance w eGFR 117.08 POC Glucometer 186 120 Random Glucose 136 H Calcium 8.3 L Phosphorus 1.9 L Magnesium 1.6 L Total Bilirubin Direct Bilirubin AST ALT Alkaline Phosphatase Total Protein Albumin 02/19/19 02/19/19 07:40 07:40 WBC 7.0 RBC 4.80 Hgb 15.6 Hct 45.2 MCV 94.2 MCH 32.6 MCHC 34.6 RDW 15.3 Absolute Neuts (auto) 3.9 Neutrophils % 55.7 Lymphocytes % 29.5 Monocytes % 11.5 H Eosinophils % 1.9 Basophils % 1.4 Nucleated RBC % 0 Sodium 137 Potassium 3.7 Chloride 105 Carbon Dioxide 26 Anion Gap 6 L BUN 9 Creatinine 0.6 Creat Clearance w eGFR 139.88 POC Glucometer Random Glucose 119 H Calcium 8.7 Phosphorus 3.0 Magnesium 2.0 Total Bilirubin 1.4 H Direct Bilirubin 0.6 H AST 86 H ALT 55 Alkaline Phosphatase 71 Total Protein 7.1 Albumin 3.5 HOSPITAL COURSE: Date of Admission:02/16/19 Date of Discharge: 02/19/19 Minutes to complete discharge: 40 Discharge Summary Reason For Visit: CHEST PAIN Current Active Problems Chest pain (Acute) Alcohol abuse (Chronic) Hospital Course: 53 yom with pMHx of CAD s/p LAD PCI 2009 (per patient), HTN, HLD, IDDM, ETOH abuse, hepatic steatosis, pancreatitis admitted with hypoglycemia, ETOH intoxication and atypical chest and abdominal pain with multiple episodes of non bloody vomiting. Patient reported drinking day prior to admission, continued his home insulin including glargine and novolog without adequate oral intake. His blood sugar was noted in 60s that rapidly improved with supplementation. His home glargine/ novolog/glipizide were held and he was placed on liberal sliding scale. He also reported chest and abdominal more like burning and sharp pain with onset after multiple episodes of vomiting. He had CT Abdomen/pelvis on admission showing hepatomegaly with fatty liver but neg for acute concerns. He was placed on supportive treatment with fluids, zofran and PPI with resolution of his symptoms. He is tolerating diet well. He was watched on telemetry and ACS was ruled out. cardiology was consulted, no additional intervention were recommended. He had 2D echo that showed normal LV function with no concerns. [facility]. He was noted with mild to moderate alcohol withdrawal with tremors, occasional hallucinations and hypertension. He finished librium detox inhouse. He had abnormal LFTs on admission, likely from alcoholic hepatitis, that resolved. His electrolyte abnormalites including hypokalemia, hypomagnesemia and hypophosphatemia were aggressively repleted. Condition: Stable - Instructions Diet, Activity, Other Instructions: You were admitted with low blood sugar, vomiting and chest and belly pain likely from your drinking related stomach upset. Your diabetes medications were held. You also completed librium detox in the hospital. MEDICATIONS: Stop your novolog for now (That you take 3 times daily normally) Stop your glipizide. Decrease Basalgar (glargine) insulin to 5 units in the morning. Start ASA 81 mg daily Continue your other medications as before DISCHARGE INSTRUCTIONS: Please note that your diabetes medications have been changed as above. You are advised to check your blood sugars before meals and at bedtime and maintain a diary. If you notice your blood sugars rising and persistently higher than 150, please contact your doctor to address resumption of your diabetes medications. Strongly advised alcohol cessation. It is very important to eat regularly and avoid alcohol while on multiple diabetes medications to avoid low blood sugars which can be life threatening. FOLLOW UP: With Primary care doctor in 1 week (please take your blood sugar log to his office) With sales associate fishing Dr. Zee's office in 1 week If you notice any new or concerning chest or belly pain, inability to eat or any new concerns, please call 911 or come to the ED. Referrals: Vidal Urias MD [Primary Care Provider] - Disposition: HOME - Home Medications Comprehensive Discharge Medication List: Ambulatory Orders Folic Acid - 1 mg PO DAILY #0 tablet 12/19/12 Multivitamins [Multivit ([facility] Formulary)] 1 udtab PO DAILY #0 tab 12/19/12 Tamsulosin HCl 0.4 mg PO DAILY 11/24/15 Carvedilol [Coreg -] 25 mg PO BID #60 tablet 10/25/16 Lancets/Blood Glucose Strips [Fora [id number] Strp-Lnct] 1 each AC #90 combo..pkg 05/07/17 Atorvastatin Ca [Lipitor] 10 mg PO HS 07/24/18 Famotidine [Pepcid] 40 mg PO DAILY 02/16/19 Multivitamin [One-Daily Multi-Vitamin] 1 each PO DAILY 02/16/19 Topiramate [Topamax] 50 mg PO BID 02/16/19 Aspirin Coated [Ecotrin -] 81 mg PO DAILY #30 tablet.ec 02/19/19 Insulin Glargine,Hum.rec.anlog [Basaglar Kwikpen U-100] 5 unit SQ AM 30 Days #1 5ml 02/19/19 This patient is new to me today: No Emergency Visit: Yes ED Registration Date: 02/16/19 Care time: The patient presented to the Emergency Department on the above date and was hospitalized for further evaluation of their emergent condition. Critical Care patient: No - Discharge Referral Referred to [facility] Med P.C.: No
--- NOTE | 2019-02-19 12:29 | PN ---
Progress Note (short form) - Note Progress Note: s: no sob palps dizzy; cp better o: Vital Signs Period Temp Pulse Resp BP Sys/Mccoy Pulse Ox Last 24 Hr 98.5 F-100.0 F 77-91 20-20 96-159/58-89 98-98 nad no jvd rrr s1s2 no mrg cta bl nl eff aao3 no le e/c/c abd nt nd pos bs no jaundice diaphoresis Current Medications Generic Name Dose Route Start Last Admin Trade Name Freq PRN Reason Stop Dose Admin Amlodipine Besylate 5 mg 02/17/19 10:00 02/19/19 09:33 Norvasc - PO 5 mg DAILY [facility] Administration Aspirin 81 mg 02/16/19 16:30 02/19/19 09:32 Ecotrin - PO 81 mg DAILY [facility] Administration Carvedilol 25 mg 02/16/19 22:00 02/19/19 09:33 Coreg - PO 25 mg BID [facility] Administration Chlordiazepoxide HCl 10 mg 02/19/19 05:00 02/19/19 09:38 Librium - PO 02/20/19 05:00 10 mg Q12H PRN Administration Signs/symptoms of Withdrawal Folic Acid 1 mg 02/17/19 10:00 02/19/19 09:31 Folic Acid - PO 1 mg DAILY [facility] Administration Heparin Sodium (Porcine) 5,000 unit 02/16/19 22:00 02/19/19 06:24 Heparin - SQ 5,000 unit TID [facility] Administration Insulin Aspart 1 vial 02/17/19 13:59 02/19/19 12:23 Novolog Vial Sliding Scale - SQ Not Given ACHS [facility] Protocol Magnesium Oxide 800 mg 02/18/19 10:00 02/19/19 09:34 Mag-Ox - PO 02/22/19 10:01 800 mg DAILY [facility] Administration Multivitamins/Minerals/Vitamin C 1 tab 02/17/19 14:00 02/19/19 09:34 Tab-A-Vit - PO 1 tab DAILY [facility] Administration Ondansetron HCl 4 mg 02/16/19 18:14 Zofran Injection IVPUSH Q6H PRN NAUSEA Pantoprazole Sodium 40 mg 02/18/19 10:00 02/19/19 09:33 Protonix - PO 40 mg DAILY [facility] Administration Tamsulosin HCl 0.4 mg 02/17/19 08:30 02/19/19 09:32 Flomax - PO 0.4 mg DAILY@0830 [facility] Administration Thiamine HCl 100 mg 02/17/19 14:00 02/19/19 09:34 Vitamin B1 - PO 100 mg DAILY [facility] Administration CBC, BMP 02/19/19 07:40 02/19/19 07:40 ecg: sr, old rbbb cxr: no chf tele: sr Echo 08/2015: normal LV/RV size and function, no sig valv abn echo 01/2019: tds; nl lv/rv, no sig valve path, nl rvsp Assessment/Plan 53 year old male with significant past medical history of HTN, HPL, CAD s/p prior LAD PCI 4-5 years ago, ETOH abuse who presents to the ED complaining of several days of chest pain and vomiting while he has been drinking etoh heavily. cp: -longstanding atyp CP with clearly non-anginal features, -presently with similar atyp CP occurring after vomiting. no ischemic ecg changes and trop neg x2. Echo unremarkable. No further cardiac w/u is warranted at this time and ok for dc from cardiac pov. CAD: -prior PCI of LAD (for ? angina vs atyp cp with incidental finding on cath); residual nonobstr dz then with no angina or ischemia since -plan as above -cont BB, statin, asa hld: -cont statin HTN: -cont bb, ccb etoh abuse: -cessation discussed
[2019-02-19 12:37] LABS: PLATELET ESTIMATE DECREASED
[2019-02-19 18:42] VITALS: BP 146/88; PULSE 88
== END 2019-02-19 17:20 | disposition home or self-care (01) | DRG 775 ==
LOC: JER 10:29 → OBSVTOIN 13:06 → JERBED 13:06 → J4W 19:08
PROVIDERS: ADMIT Hospitalist; ATTEND Hospitalist
PROC: HZ2ZZZZ Detoxification Services for Substance Abuse Treatment (ICD-10-PCS; principal; 2019-02-16)
DX: F10.220 Alcohol dependence with intoxication, uncomplicated (principal); E11.649 Type 2 diabetes mellitus with hypoglycemia without coma; E87.2 Acidosis; E83.42 Hypomagnesemia; E83.39 Other disorders of phosphorus metabolism; R07.89 Other chest pain; F10.230 Alcohol dependence with withdrawal, uncomplicated; E87.6 Hypokalemia; Z79.4 Long term (current) use of insulin; N28.89 Other specified disorders of kidney and ureter; I10 Essential (primary) hypertension; I25.10 Atherosclerotic heart disease of native coronary artery without angina pectoris; Z95.5 Presence of coronary angioplasty implant and graft; E78.5 Hyperlipidemia, unspecified; G40.509 Epileptic seizures related to external causes, not intractable, without status epilepticus; Z87.891 Personal history of nicotine dependence
CPT/HCPCS: 36415; 71045-TC-FY; 74177-TC; 80048; 80053; 80061; 80076; 80307; 81003; 82140; 82248; 82962; 83036; 83605; 83690; 83721; 83735; 83880; 84100; 84443; 84484; 85025; 85610; 85730; 87086; 93005; 93010; 93306-TC; 99282-25; J1644; J7030

== ENCOUNTER 2019-07-29 14:19 | Inpatient (IN) | payer OTHER ==
--- NOTE | 2019-07-29 14:30 | PDOC ---
Rapid Medical Evaluation Time Seen by Provider: 07/29/19 14:22 Medical Evaluation: Allergies Allergy/AdvReac Type Severity Reaction Status Date / Time No Known Allergies Allergy Verified 09/12/17 12:36 07/29/19 14:22 I have performed a brief in-person evaluation of this patient. The patient presents with a chief complaint of: Chest pain this am, since resolved. Feeling tired and nauseous now. Per EMS, BG< in the 500s. Pt noncompliant w/ meds. H/o IDDM, HTN, HLD Pertinent physical exam findings:Stable and in NAD I have ordered the following:ekg/cxr/labs The patient will proceed to the ED for further evaluation. Discharge Disposition - Diagnosis Hyperglycemia Chest pain Qualifiers: Chest pain type: unspecified Qualified Code(s): R07.9 - Chest pain, unspecified - Referrals - Patient Instructions - Post Discharge Activity
--- NOTE | 2019-07-29 15:14 | PDOC ---
History of Present Illness - General Chief Complaint: Blood Sugar Problem Stated Complaint: CP/ABD.PAIN/HYPERGLYCEMIA Time Seen by Provider: 07/29/19 14:22 History Source: Patient, Old Records Exam Limitations: No Limitations - History of Present Illness Initial Comments: 07/29/19 17:45 HISTORY OF PRESENT ILLNESS: 54-year-old male with past medical history of IDDM, hypertension, hyperlipidemia, CAD status post stents, pancreatitis, cholecystitis, gastritis, liver cirrhosis and alcohol abuse presents to the ED for hyperglycemia at home. Patient reports he's had difficulty the tolerating oral intake for the past week this primary doctor has been out of town. Patient ran out of his insulin approximately one week ago and has been unable to contact his primary doctor.[id number] patient reports having some abdominal pain but is unable to pinpoint exactly where the pain is or describe the pain. He denies diarrhea, constipation, rectal bleeding, dysuria, hematuria or urinary frequency. No recent travel or sick contacts. PAST MEDICAL HISTORY: see HPI SURGICAL HISTORY: Denies ALLERGIES: No known drug allergies REVIEW OF SYSTEMS General/Constitutional: Denies fever or chills. Denies weakness, weight change. HEENT: Denies change in vision. Denies ear pain or discharge. Denies sore throat. Cardiovascular: Denies chest pain or shortness of breath. Respiratory: Denies cough, wheezing, or hemoptysis. Gastrointestinal: see HPI Genitourinary: Denies dysuria, frequency, or change in urination. Musculoskeletal: Denies joint or muscle swelling or pain. Denies neck or back pain. Skin and breasts: Denies rash or easy bruising. Neurologic: Denies headache, vertigo, loss of consciousness, or loss of sensation. Psychiatric: Denies depression or anxiety. Endocrine: see HPI Hematologic/Lymphatic: Denies anemia, easy bleeding, or history of blood clots. Allergic/Immunologic: Denies hives or skin allergy. Denies latex allergy. PHYSICAL EXAM General Appearance: Well-appearing, appropriately dressed. No apparent distress , no intoxication. HEENT: EOMI, PERRLA, normal ENT inspection, normal voice, TMs normal, pharynx normal. No conjunctival pallor. No photophobia, scleral icterus. Neck: Supple. Trachea midline. No tenderness, rigidity, carotid bruit, stridor , lymphadenopathy, or thyromegaly. Respiratory/Chest: Lungs CTAB. No shortness of breath, chest tenderness, respiratory distress, accessory muscle use. No crackles, rales, rhonchi, stridor , wheezing, dullness Cardiovascular: RRR. S1, S2. No JVD, murmur, bradycardia, tachycardia. Vascular Pulses: Dorsalis-Pedis (R): 2+, Dorsalis-Pedis (L): 2+ Gastrointestinal/Abdominal: Normal bowel sounds. Abdomen soft, distended. No tenderness or rebound tenderness. No organomegaly, pulsatile mass, guarding, hernia, hepatomegaly, splenomegaly. Lymphatic: No adenopathy, tenderness. Musculoskeletal/Extremities: Normal inspection. FROM of all extremities, normal capillary refill. Pelvis Stable. No CVA tenderness. No tenderness to extremities, pedal edema, swelling, erythema or deformity. Integumentary: Appropriate color, dry, warm. No cyanosis, erythema, jaundice or rash Neurologic: aerodynamicist II-XII intact. Fully oriented, alert. Appropriate mood/affect. Motor strength 5/5. No appreciable EOM palsy, facial droop or sensory deficit. 07/29/19 17:48 Past History - Past Medical History Allergies/Adverse Reactions: Allergies Allergy/AdvReac Type Severity Reaction Status Date / Time No Known Allergies Allergy Verified 09/12/17 12:36 Home Medications: Ambulatory Orders Folic Acid - 1 mg PO DAILY #0 tablet 12/19/12 Multivitamins [Multivit ([facility] Formulary)] 1 udtab PO DAILY #0 tab 12/19/12 Tamsulosin HCl 0.4 mg PO DAILY 11/24/15 Carvedilol [Coreg -] 25 mg PO BID #60 tablet 10/25/16 Lancets/Blood Glucose Strips [Fora [id number] Strp-Lnct] 1 each AC #90 combo..pkg 05/07/17 Atorvastatin Ca [Lipitor] 10 mg PO HS 07/24/18 Famotidine [Pepcid] 40 mg PO DAILY 02/16/19 Multivitamin [One-Daily Multi-Vitamin] 1 each PO DAILY 02/16/19 Topiramate [Topamax] 50 mg PO BID 02/16/19 Aspirin Coated [Ecotrin -] 81 mg PO DAILY #30 tablet.ec 02/19/19 Insulin Glargine,Hum.rec.anlog [Basaglar Kwikpen U-100] 5 unit SQ AM 30 Days #1 5ml 02/19/19 Anemia: No Asthma: No Cancer: No Cardiac Disorders: Yes (afib, cardiac stent 2009) CVA: No COPD: No CHF: No Dementia: No Diabetes: Yes GI Disorders: (cholecystitis ,pancreatitis) Disorders: No HTN: Yes Hypercholesterolemia: Yes Liver Disease: Yes (liver cirrhosis) Seizures: No Thyroid Disease: No - Surgical History Abdominal Surgery: No Appendectomy: No Cardiac Surgery: Yes (stent) Cholecystectomy: No Lung Surgery: No Neurologic Surgery: No Orthopedic Surgery: No - Immunization History Immunization Up to Date: Yes - Suicide/Smoking/Psychosocial Hx Smoking Status: Yes Smoking History: Unknown if ever smoked Have you smoked in the past 12 months: No Number of Cigarettes Smoked Daily: 0 If you are a former smoker, when did you quit?: 2004 Cigars Per Day: 0 Information on smoking cessation initiated: No Hx Alcohol Use: No Drug/Substance Use Hx: No Substance Use Type: Alcohol Hx Substance Use Treatment: Yes *Physical Exam - Vital Signs Last Vital Signs Temp Pulse Resp BP Pulse Ox 98.4 F 109 H 16 103/69 97 07/29/19 14:24 07/29/19 14:24 07/29/19 14:24 07/29/19 14:24 07/29/19 14:24 ED Treatment Course - LABORATORY CBC & Chemistry Diagram: 07/30/19 08:00 07/30/19 08:00 Medical Decision Making - Critical Care Time Total Critical Care Time (minutes): 75 Critical Care Statement: The care of this patient involved high complexity decision making to prevent further life threatening deterioration of the patient 's condition and/or to evaluate & treat vital organ system(s) failure or risk of failure. - Medical Decision Making 07/29/19 17:50 A/P: 54-year-old male for evaluation of hyperglycemia Labs per RME BGM Normal saline 1 L IV bolus Insulin 6 units IV push now Reassess 07/29/19 17:52 Laboratory Tests 07/29/19 07/29/19 15:30 15:30 Sodium 125 L Potassium 2.9 L* Chloride 79 L Carbon Dioxide 24 Anion Gap 21 H BUN 20.3 H Creatinine 1.7 H Random Glucose 444 H* Total Bilirubin 3.0 H AST 80 H ALT 66 H Troponin I < 0.02 Laboratory testing notable as above. monitoring and evaluation advisor Potassium riders 4 Potassium 40 mEq orally now Change IV fluids to normal saline with 20 mEq of potassium chloride CT of the abdomen and pelvis without contrast given acute renal failure Admission 07/29/19 18:33 Case was discussed with admitting resident who accepts patient pending discussion with ICU. During sign out to resident lipase returned at greater than 1500. Fluid bolus ordered bedside nurse is aware. ICU on page 07/29/19 19:14 Case d/w ICU who accepts patient. *DC/Admit/Observation/Transfer Diagnosis at time of Disposition: Hyperglycemia, Hypokalemia, Hyponatremia, Alcohol abuse Pancreatitis, acute Qualifiers: Pancreatitis type: alcohol induced Acute pancreatitis complication: unspecified Qualified Code(s): K85.20 - Alcohol induced acute pancreatitis without necrosis or infection - Discharge Dispostion Condition at time of disposition: Stable Decision to Admit order: Yes - Referrals - Patient Instructions - Post Discharge Activity
--- NOTE | 2019-07-29 15:19 | PDOC ---
*Physical Exam - Vital Signs Last Vital Signs Temp Pulse Resp BP Pulse Ox 98.4 F 109 H 16 103/69 97 07/29/19 14:24 07/29/19 14:24 07/29/19 14:24 07/29/19 14:24 07/29/19 14:24 ED Treatment Course - LABORATORY CBC & Chemistry Diagram: 07/31/19 05:10 07/31/19 15:10 Medical Decision Making - Critical Care Time Total Critical Care Time (minutes): 60 Critical Care Statement: The care of this patient involved high complexity decision making to prevent further life threatening deterioration of the patient 's condition and/or to evaluate & treat vital organ system(s) failure or risk of failure. - Medical Decision Making 07/29/19 15:18 Pt seen by NATE Castañeda Agree with assessment and examination Labs reviewed Agrees with dispo Pt has a h/o alcohol abuse, has not been eating or drinking no fevers or chills Has noted diffuse abdominal pain 07/29/19 18:47 EKG: ST rate of 106 bpm, axis nml, intervals abnormal - pr:178ms, QRS:152ms, QTc :523ms, RBBB, Laboratory Tests 07/29/19 07/29/19 07/29/19 15:30 15:30 15:30 WBC 7.8 Hgb 17.8 H Hct 50.6 H Plt Count 135 Sodium 125 L Potassium 2.9 L* BUN 20.3 H Creatinine 1.7 H POC Glucometer Random Glucose 444 H* AST 80 H ALT 66 H Creatine Kinase 144 Troponin I < 0.02 Lipase > 1500 H Acetone, Qual Positive small 1+ 07/29/19 17:03 WBC Hgb Hct Plt Count Sodium Potassium BUN Creatinine POC Glucometer 405 Random Glucose AST ALT Creatine Kinase Troponin I Lipase Acetone, Qual Pending CT Pending US Clinical impression: Pancreatitis, initial presentation Alcoholic ketoacidosis, initial presentation Possible DKA, initial presentation Dehydration, initial presentation Admit to hospitalist Admit to ICU 07/29/19 18:53 *DC/Admit/Observation/Transfer Diagnosis at time of Disposition: Hyperglycemia, Hypokalemia, Hyponatremia, Alcohol abuse Pancreatitis, acute Qualifiers: Pancreatitis type: alcohol induced Acute pancreatitis complication: unspecified Qualified Code(s): K85.20 - Alcohol induced acute pancreatitis without necrosis or infection - Discharge Dispostion Condition at time of disposition: Stable - Referrals - Patient Instructions - Post Discharge Activity
[2019-07-29] MEDS ORDERED: SODIUM CHLORIDE 1,000 ML IV STA ×2 (15:32→18:31)
[2019-07-29] MEDS ORDERED: INSULIN REGULAR HUMAN 100 UNITS/ML *VIAL SQ ONE (15:32)
[2019-07-29 15:45] LABS: BASO % 0.2 % (0-2.0); HEMATOCRIT 50.6 % (35.4-49); HEMOGLOBIN 17.8 GM/dL (11.7-16.9); LYMPH % 17.3 % (8-40); MCH 31.8 pg (25.7-33.7); MCHC 35.2 g/dl (32.0-35.9); MEAN CELL VOLUME 90.3 fl (80-96); MEAN PLT VOLUME 8.3 fl (7.5-11.1); MONO % 6.9 % (3.8-10.2); NEUT % 75.6 % (42.8-82.8); PLATELET COUNT 135 K/MM3 (134-434); RDW 15.6 % (11.9-15.9); WHITE BLOOD COUNT 7.8 K/mm3 (4.0-10.0)
[2019-07-29] MEDS ORDERED: INSULIN REGULAR HUMAN 100 UNITS/ML *VIAL IVPUSH ONE (15:49)
[2019-07-29 16:50] LABS: ALBUMIN 3.8 g/dl (3.4-5.0); ALK PHOS 88 U/L (45-117); ANION GAP 21 MMOL/L (8-16); BLOOD UREA NITROGEN 20.3 mg/dL (7-18); CALCIUM 8.8 mg/dL (8.5-10.1); CHLORIDE 79 mmol/L (98-107); CO2 24 mmol/L (21-32); CREATININE 1.7 mg/dL (0.55-1.3); SGOT/AST 80 U/L (15-37); SGPT/ALT 66 U/L (13-61); SODIUM 125 mmol/L (136-145); TOT PROT 7.8 g/dl (6.4-8.2)
[2019-07-29 17:49] LABS: GLUCOSE,RANDOM 444 mg/dL (74-106); POTASSIUM 2.9 mmol/L (3.5-5.1)
[2019-07-29] MEDS ORDERED: POTASSIUM CHLORIDE ORAL LIQUID 20 MEQ/15 ML PO ONE (17:53)
[2019-07-29 18:00] LABS: ACETONE SERUM POSITIVE SMALL 1+ (NEGATIVE)
[2019-07-29] MEDS ORDERED: SODIUM CHLORIDE 0.9%/KCL 20 MEQ/1,000 ML INFUS.BAG IV SCH ×2 (18:00→18:32)
[2019-07-29 18:11] LABS: LIPASE > 1500 U/L (73-393)
[2019-07-29] MEDS ORDERED: KCL 10 MEQ IVPB 10 MEQ/100 ML INFUS.BAG IVPB ONE ×4 (18:42→23:08)
[2019-07-29] MEDS ORDERED: POTASSIUM CHLORIDE ORAL LIQUID 20 MEQ/15 ML ONE (18:42)
[2019-07-29] MEDS: KCL 10 MEQ IVPB 10 MEQ/100 ML INFUS.BAG IVPB SCH ×3 (18:53→21:50)
--- NOTE | 2019-07-29 19:26 | CONSULT ---
Consultation: REQUESTING PROVIDER: ED CONSULT REQUEST: We have been asked to medically evaluate this patient for (DKA/ Pancreatitis). HISTORY OF PRESENT ILLNESS: Pt is a 54 Y/O M with a significant past medical history of IDDM, hypertension , hyperlipidemia, CAD status post stents, pancreatitis, cholecystitis, gastritis , liver cirrhosis and alcohol abuse who presented to [facility] due to abdominal pain, PO intolerance, and fatigue. Pt endorses that approximately 6 days ago, he ran out of his home insulin Novolog. Pt states his PMD was away on vacation and could not refill his insulin. Since this time, pt has had decreased appetite , poor sleep, no bowel movements, and extreme abdominal pain. Abdominal pain is described as a 10/10 in severity and radiating to his back. Furthermore, pt endorses he usually consumes half a glass of whiskey per day. Last drink was 6 days ago. Denies CP or SOB. REVIEW OF SYSTEMS: CONSTITUTIONAL: PRESENT generalized weakness, malaise, loss of appetite HEENT: Absent: rhinorrhea, nasal congestion, throat pain, throat swelling, difficulty swallowing, mouth swelling, ear pain, eye pain, visual changes CARDIOVASCULAR: Absent: chest pain, syncope, palpitations, irregular heart rate, lightheadedness , peripheral edema RESPIRATORY: Absent: cough, shortness of breath, dyspnea with exertion, orthopnea, wheezing, stridor, hemoptysis GASTROINTESTINAL: PRESENT abdominal pain, abdominal distension, nausea, vomiting GENITOURINARY: Absent: dysuria, frequency, urgency, hesitancy, hematuria, flank pain, genital pain MUSCULOSKELETAL: Absent: myalgia, arthralgia, joint swelling, back pain, neck pain SKIN: Absent: rash, itching, pallor HEMATOLOGIC/IMMUNOLOGIC: Absent: easy bleeding, easy bruising, lymphadenopathy, frequent infections ENDOCRINE: Absent: unexplained weight gain, unexplained weight loss, heat intolerance, cold intolerance NEUROLOGIC: Absent: headache, focal weakness or paresthesias, dizziness, unsteady gait, seizure, mental status changes, bladder or bowel incontinence PSYCHIATRIC: Absent: anxiety, depression, suicidal or homicidal ideation, hallucinations. PHYSICAL EXAMINATION Vital Signs - 24 hr 07/29/19 07/29/19 14:24 18:36 Temperature 98.4 F 98.4 F Pulse Rate 109 H Pulse Rate [ 99 H Left Radial] Respiratory 16 17 Rate Blood Pressure 103/69 Blood Pressure 138/90 [Right Arm] O2 Sat by Pulse 97 99 Oximetry (%) GENERAL: Somnolent, NAD HEAD: Normal with no signs of trauma. EYES: Sclera icteric. EOMI EARS, NOSE, THROAT:Dry mucous membranes NECK:Supple. LUNGS: CTAB HEART: RRR S1S2 ABDOMEN: Diffusely tender, distended, hypoactive bowel sounds. UPPER EXTREMITIES:Amputation right index finger. LOWER EXTREMITIES: No CCE NEUROLOGICAL: Cranial nerves II-XII intact. Normal speech. SKIN: Warm, dry, normal turgor, no rashes or lesions noted. Laboratory Results - last 24 hr 07/29/19 07/29/19 07/29/19 15:30 15:30 15:30 WBC 7.8 RBC 5.60 Hgb 17.8 H Hct 50.6 H MCV 90.3 MCH 31.8 MCHC 35.2 RDW 15.6 Plt Count 135 MPV 8.3 Absolute Neuts (auto) 5.9 Neutrophils % 75.6 D Lymphocytes % 17.3 D Monocytes % 6.9 Eosinophils % 0.0 D Basophils % 0.2 Nucleated RBC % 1 H Sodium 125 L Potassium 2.9 L* Chloride 79 L Carbon Dioxide 24 Anion Gap 21 H BUN 20.3 H Creatinine 1.7 H Est GFR (CKD-EPI)AfAm 51.11 Est GFR (CKD-EPI)NonAf 44.10 POC Glucometer Random Glucose 444 H* Calcium 8.8 Total Bilirubin 3.0 H AST 80 H ALT 66 H Alkaline Phosphatase 88 Creatine Kinase 144 Troponin I < 0.02 Total Protein 7.8 Albumin 3.8 Lipase > 1500 H Acetone, Qual Positive small 1+ 07/29/19 07/29/19 15:30 17:03 WBC RBC Hgb Hct MCV MCH MCHC RDW Plt Count MPV Absolute Neuts (auto) Neutrophils % Lymphocytes % Monocytes % Eosinophils % Basophils % Nucleated RBC % Sodium Potassium Chloride Carbon Dioxide Anion Gap BUN Creatinine Est GFR (CKD-EPI)AfAm Est GFR (CKD-EPI)NonAf POC Glucometer 483 405 Random Glucose Calcium Total Bilirubin AST ALT Alkaline Phosphatase Creatine Kinase Troponin I Total Protein Albumin Lipase Acetone, Qual Active Medications Generic Name Dose Route Start Last Admin Trade Name Freq PRN Reason Stop Dose Admin Potassium Chloride 10 meq in 100 mls @ 100 mls/hr 07/29/19 18:00 07/29/19 18: 53 Potassium Chloride 10 Meq Premix Ivpb - IVPB 07/29/19 20:59 100 mls/hr Q60M SIERRA Administration Sodium Chloride 1,000 mls @ 1,000 mls/hr 07/29/19 18:31 07/29/19 18:34 Normal Saline - IV 07/29/19 19:30 1,000 mls/hr ASDIR STA Administration Potassium Chloride/Sodium Chloride 20 meq in 1,000 mls @ 200 mls/hr 07/29/19 18:32 Ns+20 Meq Kcl - IV ASDIR SIERRA ASSESSMENT/PLAN: Pt is a 54 Y/O M with a significant past medical history of IDDM, hypertension , hyperlipidemia, CAD status post stents, pancreatitis, cholecystitis, gastritis , liver cirrhosis and alcohol abuse who presented to [facility] due to abdominal pain, PO intolerance, and fatigue. #Neuro: AAOX3, no focal neurological deficits. # Cardio: CAD s/p Stents, HTN, HLD -EKG: ST rate of 106 bpm, axis nml, intervals abnormal - pr:178ms, QRS:152ms, QTc:523ms, RBBB -c/w home carvedilol. Will holf statin in light of transaminitis. -Tele monitoring -Trend Troponin q6H #ENDO- DKA -Pt presenting with potassium 2.9. Repeat Potassium pending., Will hold off on insulin gtt at this juncture until return potassium is greater than 3.3. -While in ED, pt administered Potassium riders 4, Potassium 40 mEq oral, and placed on normal saline with 20 mEq of potassium chloride. - Once potassium >3.3, will give regular 0.1 units/kg as IV Bolus and then 0.1 units/kg/hr IV continuous insulin fusion. When Serum glucose is 200 mg/dl or anion gap closes, will administer rapid acting insulin 0.1 units/kg subcutaneous every 2 hours and will also change fluids to D5 1/2 NS. -Will place on ISS ACHS as well as 20 U Levemir HS. #GI-Pancreatitis -Lipase >1500, abdominal pain w/ radiation to back. -CTAP pending -Receiving IV fluids. Morphine 2 mg Q6H PRN. #FEN NS w/ 40 mEQ KCL @ 200cc/hr Monitor Potassium, BGM, Anion gap NPO #DVT ppx: HEPSQTID Dispo: We will continue to follow the patient. Thank you for this consultative opportunity. Visit type - Emergency Visit Emergency Visit: Yes ED Registration Date: 07/29/19 Care time: The patient presented to the Emergency Department on the above date and was hospitalized for further evaluation of their emergent condition. - New Patient This patient is new to me today: Yes Date on this admission: 07/29/19 - Critical Care Critical Care patient: Yes Total Critical Care Time (in minutes): 35 Critical Care Statement: The care of this patient involved high complexity decision making to prevent further life threatening deterioration of the patient 's condition and/or to evaluate & treat vital organ system(s) failure or risk of failure.
--- NOTE | 2019-07-29 19:48 | HP ---
CHIEF COMPLAINT: abdominal pain PCP: Martha HISTORY OF PRESENT ILLNESS: Mr. Knowles is a 54 y/o male with IDDM, HTN, HLD, CAD s/p PCI, pancreatitis, cholecystitis, gastritis, liver cirrhosis, and alcohol use disorder who presents to the ED with sudden onset of diffuse abdominal pain x 10 days. He reports max pain is 10/10. He is unable to characterize the pain. He reports associated loss of appetite, nausea, vomiting, constipation (x 10 days). He reports he has not eaten in the last 7 days, and he has not taken his insulin. His PCP was out of town and was not able to get an insulin refill. Last A1c is unknown. He denies fever, chills, dyspnea, hematemesis, diarrhea, hallucinations , and tremors. ER course was notable for: (1) BG 483, given 10U glargine total, NS 1L bolus (2) K 2.9, repleted with 40mEq KCl PO and 10mEq bags KCl x 1 (3) lipase >1500 (4) EKG- LBBB, no ST changes, trop negative x 1 (5) CT pending Recent Travel: none PAST MEDICAL HISTORY: IDDM HTN HLD CAD s/p stent pancreatitis cholecystitis gastritis liver cirrhosis alcohol use disorder PAST SURGICAL HISTORY: pt denies Social History: Smokin cigarettes daily Alcohol: 1/2 cup whiskey daily Drugs: none lives at home alone Family History: HTN DM Allergies No Known Allergies Allergy (Verified 09/12/17 12:36) HOME MEDICATIONS: Home Medications Medication Instructions Recorded Folic Acid - 1 mg PO DAILY #0 tablet 12/19/12 Multivitamins [Multivit ([facility] 1 udtab PO DAILY #0 tab 12/19/12 Formulary)] Tamsulosin HCl 0.4 mg PO DAILY 11/24/15 Carvedilol [Coreg -] 25 mg PO BID #60 tablet 10/25/16 Lancets/Blood Glucose Strips [Fora 1 each AC #90 combo..pkg 05/07/17 [id number] Strp-Lnct] Atorvastatin Ca [Lipitor] 10 mg PO HS 07/24/18 Famotidine [Pepcid] 40 mg PO DAILY 02/16/19 Multivitamin [One-Daily 1 each PO DAILY 02/16/19 Multi-Vitamin] Topiramate [Topamax] 50 mg PO BID 02/16/19 Aspirin Coated [Ecotrin -] 81 mg PO DAILY #30 tablet.ec 02/19/19 Insulin Glargine,Hum.rec.anlog 5 unit SQ AM 30 Days #1 5ml 02/19/19 [Basaglar Gaylepen U-100] REVIEW OF SYSTEMS CONSTITUTIONAL: Present: generalized weakness, loss of appetite Absent: fever, chills, diaphoresis HEENT: Absent: rhinorrhea, nasal congestion, throat pain CARDIOVASCULAR: Absent: chest pain, syncope RESPIRATORY: Absent: cough, shortness of breath, wheezing GASTROINTESTINAL: Present: abdominal pain, abdominal distention, nausea, vomiting, constipation Absent: diarrhea, hematochezia GENITOURINARY: Absent: dysuria MUSCULOSKELETAL: Absent: myalgia SKIN: Absent: rash HEMATOLOGIC/IMMUNOLOGIC: Absent: easy bleeding, easy bruising, lymphadenopathy, frequent infections ENDOCRINE: Absent: unexplained weight gain, unexplained weight loss, heat intolerance, cold intolerance NEUROLOGIC: Absent: headache, dizziness, seizure PSYCHIATRIC: Absent: hallucinations. PHYSICAL EXAMINATION Vital Signs - 24 hr 07/29/19 07/29/19 14:24 18:36 Temperature 98.4 F 98.4 F Pulse Rate 109 H Pulse Rate [ 99 H Left Radial] Respiratory 16 17 Rate Blood Pressure 103/69 Blood Pressure 138/90 [Right Arm] O2 Sat by Pulse 97 99 Oximetry (%) GENERAL: Awake, alert, and fully oriented, in no acute distress. HEAD: Normal with no signs of trauma. EYES: Pupils equal, round and reactive to light, extraocular movements intact, sclera icteric, conjunctiva clear. No lid lag. EARS, NOSE, THROAT: Ears normal, nares patent, oropharynx clear without exudates. Moist mucous membranes. NECK: Normal range of motion, supple without lymphadenopathy, JVD, or masses. LUNGS: Breath sounds equal, clear to auscultation bilaterally. No wheezes, and no crackles. No accessory muscle use. HEART: Regular rate and rhythm, normal S1 and S2 without murmur, rub or gallop. ABDOMEN: Distended, diffuse tenderness to palpation, no bowel sounds appreciated , no guarding, no rebound MUSCULOSKELETAL: Normal range of motion at all joints. No bony deformities or tenderness. No CVA tenderness. UPPER EXTREMITIES: 2+ pulses, warm, well-perfused. No cyanosis. No clubbing. No peripheral edema. LOWER EXTREMITIES: 2+ pulses, warm, well-perfused. No calf tenderness. No peripheral edema. NEUROLOGICAL: Cranial nerves II-XII intact. Normal speech. Normal gait. PSYCHIATRIC: Cooperative. Good eye contact. Appropriate mood and affect. SKIN: Warm, dry, normal turgor, no rashes or lesions noted, normal capillary refill. Laboratory Results - last 24 hr 07/29/19 07/29/19 07/29/19 15:30 15:30 15:30 WBC 7.8 RBC 5.60 Hgb 17.8 H Hct 50.6 H MCV 90.3 MCH 31.8 MCHC 35.2 RDW 15.6 Plt Count 135 MPV 8.3 Absolute Neuts (auto) 5.9 Neutrophils % 75.6 D Lymphocytes % 17.3 D Monocytes % 6.9 Eosinophils % 0.0 D Basophils % 0.2 Nucleated RBC % 1 H Sodium 125 L Potassium 2.9 L* Chloride 79 L Carbon Dioxide 24 Anion Gap 21 H BUN 20.3 H Creatinine 1.7 H Est GFR (CKD-EPI)AfAm 51.11 Est GFR (CKD-EPI)NonAf 44.10 POC Glucometer Random Glucose 444 H* Calcium 8.8 Total Bilirubin 3.0 H AST 80 H ALT 66 H Alkaline Phosphatase 88 Creatine Kinase 144 Troponin I < 0.02 Total Protein 7.8 Albumin 3.8 Lipase > 1500 H Acetone, Qual Positive small 1+ 07/29/19 07/29/19 15:30 17:03 WBC RBC Hgb Hct MCV MCH MCHC RDW Plt Count MPV Absolute Neuts (auto) Neutrophils % Lymphocytes % Monocytes % Eosinophils % Basophils % Nucleated RBC % Sodium Potassium Chloride Carbon Dioxide Anion Gap BUN Creatinine Est GFR (CKD-EPI)AfAm Est GFR (CKD-EPI)NonAf POC Glucometer 483 405 Random Glucose Calcium Total Bilirubin AST ALT Alkaline Phosphatase Creatine Kinase Troponin I Total Protein Albumin Lipase Acetone, Qual ASSESSMENT/PLAN: Mr. Knowles is a 54 y/o male with IDDM, HTN, HLD, CAD s/p PCI, pancreatitis, cholecystitis, gastritis, liver cirrhosis, and alcohol use disorder who presents with abdominal pain x 10 days. He was found to have BG of 483. #DKA Initial BG 483. AG 21. K 2.9. Pt is likely non-compliant with medications and has hx of heavy alcohol use. -Insulin drip, NS, and KCl were administered in ED. -Admitted to ICU -follow until AG closes- start Lantus after closed -Na 125- likely pseudohyponatremia given BG -continue hydration -ETOH level -urine drug screen #pancreatitis acute vs chronic Pt has hx of alcohol use and DM. lipase >1500. Evaluate for gallstones and triglyceridemia -RUQ U/S to evaluate for gallstones -NPO -morpine PRN pain -zofran IV -continue hydration -lipid panel #BEVERLY Cr 1.7. Likely pre-renal 2/2 dehydration -continue hydration -renal U/S -Phos #alcohol use disorder Pt has not had drink in 7 days. Unlikely to have withdrawal seizure, CIWA ~4 -ativan PRN -supplement thiamine, folate, MV #liver cirrhosis -liver U/S FEN NS monitor K, Na, Cl NPO DVT Prophylaxis herparin dispo admitted to medicine/ICU Visit type - Emergency Visit Emergency Visit: Yes ED Registration Date: 07/29/19 Care time: The patient presented to the Emergency Department on the above date and was hospitalized for further evaluation of their emergent condition. - New Patient This patient is new to me today: Yes Date on this admission: 07/30/19 - Critical Care Critical Care patient: Yes Total Critical Care Time (in minutes): 35 Critical Care Statement: The care of this patient involved high complexity decision making to prevent further life threatening deterioration of the patient 's condition and/or to evaluate & treat vital organ system(s) failure or risk of failure. ATTENDING PHYSICIAN STATEMENT I saw and evaluated the patient. I reviewed the resident's note and discussed the case with the resident. I agree with the resident's findings and plan as documented. SUBJECTIVE: OBJECTIVE: ASSESSMENT AND PLAN:
[2019-07-29] MEDS ORDERED: FOLIC ACID INJECTION - 1 MG, THIAMINE HCL 100 MG, MULTIVIT INJECTION ADULT 10 ML in SOD... IVPB ONE (20:30)
[2019-07-29] MEDS ORDERED: SODIUM CHLORIDE 1,000 ML with POTASSIUM CHLORIDE 40 MEQ IVPB SCH ×2 (20:30→21:33)
[2019-07-29] MEDS ORDERED: morphine SULFATE 4 MG/ML VIAL IVPUSH PRN (21:08)
[2019-07-29] MEDS ORDERED: clonazePAM 0.5 MG TABLET ONE (22:28)
[2019-07-29] MEDS ORDERED: QUEtiapine FUMARATE 25 MG TABLET (FP) ONE (22:29)
[2019-07-29] MEDS ORDERED: CARVEDILOL 12.5 MG TABLET (FP) ONE (22:29)
[2019-07-29 22:31] LABS: ANION GAP 13 MMOL/L (8-16); BLOOD UREA NITROGEN 18.2 mg/dL (7-18); CHLORIDE 90 mmol/L (98-107); CO2 26 mmol/L (21-32); CREATININE 1.3 mg/dL (0.55-1.3); GLUCOSE,RANDOM 353 mg/dL (74-106); POTASSIUM 3.2 mmol/L (3.5-5.1); SODIUM 129 mmol/L (136-145)
[2019-07-29] MEDS ORDERED: POTASSIUM CHLORIDE TABS 20 MEQ TABLET.ER (FP) PO ONE ×2 (22:35→23:08)
[2019-07-29] MEDS: CARVEDILOL 25 MG TABLET (FP) PO SCH (22:46)
--- NOTE | 2019-07-30 00:35 | PN ---
Teaching Attending Note Name of Resident: Carl Bates ATTENDING PHYSICIAN STATEMENT I saw and evaluated the patient. Chart, data, imaging reviewed. I reviewed the resident's note and discussed the case with the resident. I agree with the resident's findings and plan as documented. SUBJECTIVE: 54 Y/O M with a significant past medical history of IDDM, hypertension, hyperlipidemia, CAD status post stents, pancreatitis, cholecystitis, gastritis, liver cirrhosis and alcohol abuse, presents with 11 days of decreased appetite, bilious, nonbloody vomiting. NO diarrhea. HE has not been taking his insulin recently because of doctor is on vacation. Denied recent travels, illicit drugs , fevers. No reported history of gallstones. He reports his last drink was 6 days ago. OBJECTIVE: Last Vital Signs Temp Pulse Resp BP Pulse Ox 98.8 F 102 H 20 121/83 99 07/29/19 23:37 07/29/19 23:37 07/29/19 23:37 07/29/19 23:37 07/29/19 23:37 general - appears uncomfortable, nontoxic, obese heent -at, nc neck -supple cv - s1+S+ rrr chest clear abdomen -soft, diffuse tenderness to palaption, decreased bs ext - no pitting edema Abnormal Lab Results 07/29/19 07/29/19 07/29/19 15:30 15:30 21:05 Hgb 17.8 H Hct 50.6 H Nucleated RBC % 1 H Sodium 125 L 129 L Potassium 2.9 L* 3.2 L Chloride 79 L 90 L Anion Gap 21 H BUN 20.3 H 18.2 H Creatinine 1.7 H Random Glucose 444 H* 353 H Calcium 8.0 L Total Bilirubin 3.0 H AST 80 H ALT 66 H Lipase > 1500 H imaging reviewed ASSESSMENT AND PLAN: critically ill patient #DKA -likely secondary to insulin noncompliance and etoh abuse. May have also been induced by pancreatitis or vice versa. Bicarb was wnl, however +AG and + acetone. No evidence of infection. -ICU -insulin IV (bolus given -insulin drip started -bridge with lantus when AG is closed -IV fluid hydration -novolog coverage once DKA is resolved -check lactate -urine drug screen -etoh level -insulin compliance education #pancreatitis- high lipase, may have been secondary to etoh abuse. SHould r/o tryglyceridemia and gallstone pancreatitis. -keep npo for now as not tolerating po -lipid panel -hepatobiliary u/s to evaluate for gallstones -pain control- morphine iv -IV fluid hydration -zofran IV #electrolytes disturbance -hyponatremia (even if corrected for glucose), hypochloremia, hypokalemia- may be from vomiting, poor nutrition, underlying metabolic disorder -dka -supplement na, cl, k -check mg, phos, supplement if appropriate #CAD -asa -carvedilol -statin #Liver cirrhosis -liver u/s for further eval #alcoholism -CIWA -lorazepam 2mg IV prn with withdrawal -thiamine, folate, mv dvt ppx -heparin sc critical care time - 40 min
[2019-07-30] MEDS: KCL 10 MEQ IVPB 10 MEQ/100 ML INFUS.BAG IVPB SCH ×3 (01:08→23:50)
[2019-07-30] MEDS: INSULIN (LEVEMIR) 100 UNITS/ML UNITS SQ SCH ×2 (01:12→21:51)
[2019-07-30] MEDS ORDERED: MORPHINE SULFATE 2 MG/ML VIAL IVPUSH PRN (01:48)
[2019-07-30] MEDS: POTASSIUM CHLORIDE 40 MEQ in SODIUM CHLORIDE 1,000 ML IVPB SCH ×4 (02:24→07:30)
[2019-07-30] MEDS: INSULIN SLIDING SCALE (NOVOLOG) 1 VIAL SQ SCH ×4 (06:13→21:49)
[2019-07-30] MEDS: HEPARIN NA (PORCINE) 5,000 UNITS/ML 1ML VIAL SQ SCH ×3 (06:14→21:50)
[2019-07-30 07:12] LABS: ARTERIAL BLD GAS O2 SATURATION 96.3 % (95-98); ARTERIAL BLOOD GAS BASE EXCESS 1.5 meq/l (-2-2); ARTERIAL BLOOD GAS PCO2 32.5 mmHg (35-45); ARTERIAL BLOOD GAS PO2 72.6 mmHg (80-100); ARTERIAL BLOOD GAS pH 7.48 (7.35-7.45)
[2019-07-30 07:21] LABS: ALLENS TEST POSITIVE
[2019-07-30 08:44] LABS: BASO % 0.2 % (0-2.0); EOS % 0.1 % (0-4.5); HEMATOCRIT 39.2 % (35.4-49); HEMOGLOBIN 14.1 GM/dL (11.7-16.9); LYMPH % 18.5 % (8-40); MCH 32.2 pg (25.7-33.7); MEAN CELL VOLUME 89.5 fl (80-96); MEAN PLT VOLUME 8.2 fl (7.5-11.1); MONO % 7.1 % (3.8-10.2); NEUT % 74.1 % (42.8-82.8); PLATELET COUNT 132 K/MM3 (134-434); RBC 4.38 M/mm3 (4.00-5.60); RDW 15.8 % (11.9-15.9); WHITE BLOOD COUNT 8.2 K/mm3 (4.0-10.0)
[2019-07-30 08:51] LABS: INR 1.31 (0.83-1.09); PROTHROMBIN TIME (PATIENT) 15.5 SEC (9.7-13.0)
[2019-07-30 08:53] LABS: ACTIVATED PTT 35.2 SECONDS (25.2-36.5)
--- NOTE | 2019-07-30 09:10 | HOSP ---
Subjective - Review of Symptoms Subjective: c/o pain and nausea but no vomiting this AM. states he has not taken insulin for 1 month as his PMD is on vacation. never had pancreatitis before. last ETOH was 2 weeks ago. no hx of DT. denies Cp, SOB, fever, chills, V/C/D, auditory/ visual hallucinations Current Medications Generic Name Dose Route Start Last Admin Trade Name Janel PRN Reason Stop Dose Admin Aspirin 81 mg 07/30/19 10:00 Ecotrin - PO DAILY SIERRA Carvedilol 25 mg 07/29/19 22:00 07/29/19 22:46 Coreg - PO 25 mg BID SIERRA Administration Chlorhexidine Gluconate 1 applic 07/30/19 22:00 Hibiclens For Decolonization - TP HS SIERRA Heparin Sodium (Porcine) 5,000 unit 07/30/19 06:00 07/30/19 06:14 Heparin - SQ 5,000 unit TID SIERRA Administration Potassium Chloride 40 meq/ 1,020 mls @ 200 mls/hr 07/29/19 21:34 07/30/19 07: 30 Sodium Chloride IVPB 200 mls/hr Q5H SIERRA Administration Insulin Aspart 1 vial 07/30/19 07:00 07/30/19 06:13 Novolog Vial Sliding Scale - SQ 6 units ACHS SIERRA Administration Protocol Insulin Detemir 20 units 07/30/19 00:57 07/30/19 01:12 Levemir Vial SQ 20 units HS SIERRA Administration Morphine Sulfate 2 mg 07/30/19 01:48 Morphine Sulfate IVPUSH Q6H PRN PAIN LEVEL 7 - 10 Mupirocin 1 applic 07/30/19 10:00 Bactroban Ointment (For Decolonization) - NS 08/04/19 09:59 BID SIERRA Thiamine HCl 200 mg 07/30/19 10:00 Vitamin B1 Injection - IVPB DAILY [facility] Last Vital Signs Temp Pulse Resp BP Pulse Ox 98.6 F 102 H 22 H 164/87 98 07/30/19 07:00 07/30/19 08:45 07/30/19 08:45 07/30/19 08:45 07/30/19 08:47 General mildly anxious CV S1 S2 tachy Lungs CTA B/L anteriorly Abdomen soft +epigastric and RUQ tenderness Extremities tremor CBCD WBC 8.2 K/mm3 (4.0-10.0) 07/30/19 08:00 RBC 4.38 M/mm3 (4.00-5.60) 07/30/19 08:00 Hgb 14.1 GM/dL (11.7-16.9) 07/30/19 08:00 Hct 39.2 % (35.4-49) D 07/30/19 08:00 MCV 89.5 fl (80-96) 07/30/19 08:00 MCHC 36.0 g/dl (32.0-35.9) H 07/30/19 08:00 RDW 15.8 % (11.9-15.9) 07/30/19 08:00 Plt Count 132 K/MM3 (134-434) L 07/30/19 08:00 MPV 8.2 fl (7.5-11.1) 07/30/19 08:00 CMP Sodium 129 mmol/L (136-145) L 07/29/19 21:05 Potassium 3.2 mmol/L (3.5-5.1) L 07/29/19 21:05 Chloride 90 mmol/L (98-107) L 07/29/19 21:05 Carbon Dioxide 26 mmol/L (21-32) 07/29/19 21:05 Anion Gap 13 MMOL/L (8-16) 07/29/19 21:05 BUN 18.2 mg/dL (7-18) H 07/29/19 21:05 Creatinine 1.3 mg/dL (0.55-1.3) 07/29/19 21:05 Random Glucose 353 mg/dL (74-106) H 07/29/19 21:05 Calcium 8.0 mg/dL (8.5-10.1) L 07/29/19 21:05 Total Bilirubin 3.0 mg/dL (0.2-1) H 07/29/19 15:30 AST 80 U/L (15-37) H 07/29/19 15:30 ALT 66 U/L (13-61) H 07/29/19 15:30 Alkaline Phosphatase 88 U/L (45-117) 07/29/19 15:30 Total Protein 7.8 g/dl (6.4-8.2) 07/29/19 15:30 Albumin 3.8 g/dl (3.4-5.0) 07/29/19 15:30 CARDIAC ENZYMES Creatine Kinase 144 U/L (26-308) 07/29/19 15:30 Troponin I < 0.02 ng/ml (0.00-0.05) 07/29/19 21:05 A/P 54yo M [facility] PMH DM, HTN, ETOH cirrhosis, CAD s/p stents and dyslipidemia presented to the ER [facility] vomiting and anorexia and found to have acute pancreatitis 1. Acute pancreattitis- will switch IVF to LR and hydrate aggressively. check stat TG level, RUQ to evaluate from stones but could likely be from ETOH despite claiming last drink was 2 weeks ago. and not on any diabetic meds commonly assoc with pancreatitis. cont NPO, IVF, nausea control 2. Hyperglycemia- does not appear to be in DKA. received insulin IVP and levemir this AM. switch BGM to Q6H. will reduce home dose of levemir if remains NPO. will monitor labs closely during this time, 3. AGMA- likely due to ketosis from anorexia and not DKA. AG now closed. no indication for insulin ggt 4. Hyponatremia- due to dehydration. now resolved. corrected Na 135 5. Hypokalemia- KCL in IVF 6. Pseudohypocalcemia- Corrected Ca 8.2 7. Transaminitis- likley due to ETOH use. hydrate. monitor, known Cirrhotic 8. thrombocytopenia- due to cirrhosis 9. BEVERLY- due to dehydration. now resolved. cont IVF 10. Acute ETOH withdrawals- claims last drink was 2 weeks ago. some of his symptoms could be due to acute condition but high suspicion he may not be accurate in his timeline. ativan prn. if need to will start librium protocol. received banana bag on arrival. cont thimine/folate/mvi 11. Prolonged Qtc- monitor medications 12. DVT ppx- Hep sq The care of this patient involved high complexity decision making to prevent further life threatening deterioration of the patient's condition and/or to evaluate & treat vital organ system(s) failure or risk of failure. 40 minutes Physical Examination Vital Signs: Vital Signs Temperature 98.6 F 07/30/19 07:00 Pulse Rate 102 H 07/30/19 08:45 Respiratory Rate 22 H 07/30/19 08:45 Blood Pressure 164/87 09/07/19 08:45 O2 Sat by Pulse Oximetry (%) 98 07/30/19 08:47 Labs: CBC, BMP 07/30/19 08:00
[2019-07-30 09:18] LABS: BILIRUBIN,TOTAL 2.1 mg/dL (0.2-1); BLOOD UREA NITROGEN 12.6 mg/dL (7-18); CALCIUM 7.5 mg/dL (8.5-10.1); MAGNESIUM 1.7 mg/dL (1.8-2.4); POTASSIUM 3.1 mmol/L (3.5-5.1); TOT PROT 6.1 g/dl (6.4-8.2)
[2019-07-30 09:29] LABS: PHOSPHOROUS 0.3 mg/dL (2.5-4.9)
[2019-07-30] MEDS: ASPIRIN COATED 81 MG TABLET.EC PO SCH (09:45)
[2019-07-30] MEDS: PANTOPRAZOLE SODIUM 40 MG VIAL IVPUSH SCH (09:45)
[2019-07-30] MEDS: CARVEDILOL 25 MG TABLET (FP) PO SCH ×2 (09:45→21:50)
[2019-07-30] MEDS: PROCHLORPERAZINE INJECTION 10 MG/2 ML VIAL IVPB PRN ×2 (09:54→14:38)
[2019-07-30] MEDS: MUPIROCIN 2% TOPICAL OINTMENT FOR DECOLONIZATION NS SCH ×2 (10:40→21:50)
[2019-07-30 10:48] LABS: ANISOCYTOSIS 0; MACROCYTOSIS 0; PLATELET ESTIMATE DECREASED
[2019-07-30] MEDS ORDERED: POTASSIUM PHOSPHATE 30 MM in SODIUM CHLORIDE 250 ML IVPB ONE (10:49)
[2019-07-30] MEDS ORDERED: MAGNESIUM SULF 50% (8.12 MEQ/2 ML-1 GM VIAL) IVPB ONE (10:49)
[2019-07-30] MEDS ORDERED: LACTATED RINGERS SOLUTION 1,000 ML/1,000 ML INFUS.BAG IV SCH (11:00)
[2019-07-30] MEDS: ACETAMINOPHEN 1000 MG/100 ML VIAL (NON FORMULARY) IVPB PRN (11:23)
[2019-07-30] MEDS: THIAMINE HCL 200 MG/2 ML VIAL IVPB SCH (11:45)
--- NOTE | 2019-07-30 13:18 | CONSULT ---
Consult Consult Specialty:: Pulm/CCM Reason for Consultation:: pancreatitis, DKA - History of Present Illness Chief Complaint: abd pain History of Present Illness: This is a 54 yo man IDDM, HTN, HL, CAD s/p PCI, EtOH abuse c/b seizures, cirrhosis , pancreatits, who presented to ED w/ abd pain found to hvae panreatitis and DKA (+ketones, AG 21, FS >500) in setting of inability to fill insulin script. Pt states that he has have difficulty tolerating po's for the last few weeks. He states his last drink qwas >1week ago. He stated his PMD has been out of town and he was unable to fill his insulin script. and has not been using insulin for >1 week. In ED he was found to have FS 500's, AG 21, (+) ketones, and lipase >1500. He was placed on insulin drip and transferred to the ICU. He denies diarrhea, constipation, rectal bleeding, dysuria, hematuria or urinary frequency. CTAP: w/ acute pancreatitis. ABD u/s: no evidence of choelithisis . In the ICU his AG quickly closed and he was transitioned to lantus. 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 No: CVA Cardio/Vascular: Yes: CAD (2 stents placed [facility] [place] 2013), HTN, Hyperlipdemia. No: AFIB, CHF Gastrointestinal: Yes: GERD Hepatobiliary: Yes: Other (Alcoholic liver disease) Renal/: Yes: Renal Inusuff, BPH Psych: Yes: Addictions (ALCOHOL) Endocrine: Yes: Diabetes Mellitus - Alcohol/Substance Use Hx Alcohol Use: No - Smoking History Smoking history: Unknown if ever smoked Have you smoked in the past 12 months: No Aproximately how many cigarettes per day: 0 If you are a former smoker, when did you quit?: 2004 - Social History Usual Living Arrangement: Other () ADL: Independent Occupation: [employer] History of Recent Travel: No Home Medications - Allergies Allergies/Adverse Reactions: Allergies Allergy/AdvReac Type Severity Reaction Status Date / Time No Known Allergies Allergy Verified 09/12/17 12:36 - Home Medications Home Medications: Ambulatory Orders Folic Acid - 1 mg PO DAILY #0 tablet 12/19/12 Multivitamins [Multivit ([facility] Formulary)] 1 udtab PO DAILY #0 tab 12/19/12 Tamsulosin HCl 0.4 mg PO DAILY 11/24/15 Carvedilol [Coreg -] 25 mg PO BID #60 tablet 10/25/16 Lancets/Blood Glucose Strips [Fora [id number] Strp-Lnct] 1 each AC #90 combo..pkg 05/07/17 Atorvastatin Ca [Lipitor] 10 mg PO HS 07/24/18 Famotidine [Pepcid] 40 mg PO DAILY 02/16/19 Multivitamin [One-Daily Multi-Vitamin] 1 each PO DAILY 02/16/19 Topiramate [Topamax] 50 mg PO BID 02/16/19 Aspirin Coated [Ecotrin -] 81 mg PO DAILY #30 tablet.ec 02/19/19 Insulin Glargine,Hum.rec.anlog [Basaglar Kwikpen U-100] 5 unit SQ AM 30 Days #1 5ml 02/19/19 Family Disease History - Family Disease History Family Disease History: Heart Disease: Father ( [place] age 88), Other: Mother ( young of allergic reaction) Review of Systems - Review of Systems Constitutional: reports: Weakness Gastrointestinal: reports: Abdominal Pain, Constipation Physical Exam Vital Signs: Vital Signs Temperature 102.3 F H 07/30/19 10:56 Pulse Rate 93 H 07/30/19 12:30 Respiratory Rate 22 H 07/30/19 12:30 Blood Pressure 135/75 07/30/19 12:30 O2 Sat by Pulse Oximetry (%) 98 07/30/19 08:47 Current Medications Acetaminophen (Ofirmev Injection -) 1,000 mg IVPB Q6H PRN PRN Reason: fever or pain Last Admin: 07/30/19 11:23 Dose: 1,000 mg Aspirin (Ecotrin -) 81 mg PO DAILY [facility] Last Admin: 07/30/19 09:45 Dose: 81 mg Carvedilol (Coreg -) 25 mg PO BID [facility] Last Admin: 07/30/19 09:45 Dose: 25 mg Chlorhexidine Gluconate (Hibiclens For Decolonization -) 1 applic TP HS [facility] Heparin Sodium (Porcine) (Heparin -) 5,000 unit SQ TID [facility] Last Admin: 07/30/19 06:14 Dose: 5,000 unit Lactated Ringer's (Lactated Ringers Solution) 1,000 ml in 1,000 mls @ 125 mls/ hr IV ASDIR [facility] Last Admin: 07/30/19 11:23 Dose: 125 mls/hr Potassium Phosphate 30 mm/ (Sodium Chloride) 260 mls @ 62.5 mls/hr IVPB ONCE ONE Stop: 07/30/19 14:58 Insulin Aspart (Novolog Vial Sliding Scale -) 1 vial SQ ACHS [facility]; Protocol Last Admin: 07/30/19 11:39 Dose: 2 units Insulin Detemir (Levemir Vial) 20 units SQ HS [facility] Last Admin: 07/30/19 01:12 Dose: 20 units Morphine Sulfate (Morphine Sulfate) 2 mg IVPUSH Q6H PRN PRN Reason: PAIN LEVEL 7 - 10 Mupirocin (Bactroban Ointment (For Decolonization) -) 1 applic NS BID [facility] Stop: 08/04/19 09:59 Last Admin: 07/30/19 10:40 Dose: 1 applic Pantoprazole Sodium (Protonix Iv) 40 mg IVPUSH DAILY [facility] Last Admin: 07/30/19 09:45 Dose: 40 mg Prochlorperazine Edisylate (Compazine Injection -) 2.5 mg IVPB Q4H PRN PRN Reason: NAUSEA AND/OR VOMITING Last Admin: 07/30/19 09:54 Dose: 2.5 mg Thiamine HCl (Vitamin B1 Injection -) 200 mg IVPB DAILY [facility] Last Admin: 07/30/19 11:45 Dose: 200 mg Constitutional: Yes: No Distress, Calm Eyes: Yes: Conjunctiva Clear, EOM Intact HENT: Yes: Normocephalic Respiratory: Yes: CTA Bilaterally Gastrointestinal: Yes: Normal Bowel Sounds, Soft, Tenderness Extremities: Yes: WNL Edema: LLE: Trace, RLE: Trace Integumentary: Yes: WNL Neurological: Yes: Alert, Oriented ...Motor Strength: WNL Labs: CBC, BMP 07/30/19 08:00 07/30/19 08:00 Laboratory Tests 07/29/19 07/30/19 15:30 08:00 Anion Gap 13 Lipase > 1500 H Imaging - Results Chest X-ray: Report Reviewed Cat Scan: Report Reviewed, Image Reviewed Ultrasound: Report Reviewed, Image Reviewed Problem List - Problems (1) Pancreatitis, acute Code(s): K85.90 - ACUTE PANCREATITIS WITHOUT NECROSIS OR INFECTION, UNSP Qualifiers: Pancreatitis type: alcohol induced Acute pancreatitis complication: unspecified Qualified Code(s): K85.20 - Alcohol induced acute pancreatitis without necrosis or infection (2) Diabetes Code(s): E11.9 - TYPE 2 DIABETES MELLITUS WITHOUT COMPLICATIONS Assessment/Plan This is a 54 yo man w/ EtOH abuse, IDDM who presented with abdomenal pain found to have DKA and acute pancreatitis, TG WNL, no obstruction seen on imaging -Lantus w/ ISS, check BMP in PM to ensure AG remains closed -advance diet as tolerated -cont IV hydration -thiamine/folic acid -monitor for signs og EtOH withdrawal -cont BB -DVT ppx -if AG remains closed on lantus can transfer from ICU to floor Jade Andrews CCM CCT: 35m
[2019-07-30 15:16] LABS: URINE APPEARANCE Clear; URINE BILIRUBIN 1+ (NEGATIVE); URINE COLOR Yellow; URINE GLUCOSE (UA) Trace (NEGATIVE); URINE KETONE 1+ (NEGATIVE); URINE LEUK ESTERASE Negative (NEGATIVE); URINE NITRITE Negative (NEGATIVE); URINE PROTEIN 1+ (NEGATIVE); URINE UROBILINOGEN 0.2 mg/dL (0.2-1.0)
[2019-07-30 15:24] LABS: URINE RBC 1.6 /hpf (0-4); URINE WBC 2.2 /hpf (0-5)
[2019-07-30 15:25] LABS: EPI CELLS 1.9 /HPF (0-5/HPF); HYALINE CASTS 15.05 /lpf (0-8); URINE BACTERIA 0.8 /hpf (NEGATIVE)
[2019-07-30 18:56] LABS: BLOOD UREA NITROGEN 9.2 mg/dL (7-18); CALCIUM 7.5 mg/dL (8.5-10.1); CREATININE 0.9 mg/dL (0.55-1.3); MAGNESIUM 2.2 mg/dL (1.8-2.4); PHOSPHOROUS 1.9 mg/dL (2.5-4.9); POTASSIUM 3.1 mmol/L (3.5-5.1)
[2019-07-30 19:23] LABS: CHOLESTEROL 200 mg/dL (50-200); HDL CHOLESTEROL 37 mg/dL (40-60); LDL CHOLESTEROL (ONLY SJRH) 125 mg/dL (5-100); TRIGLYCERIDES 129 mg/dL (0-150)
[2019-07-30] MEDS: CHLORHEXIDINE GLUCONATE 4% CLEANSER FOR DECOLONIZATION TP SCH (21:51)
[2019-07-31] MEDS: KCL 10 MEQ IVPB 10 MEQ/100 ML INFUS.BAG IVPB SCH ×5 (00:55→19:20)
[2019-07-31] MEDS: HEPARIN NA (PORCINE) 5,000 UNITS/ML 1ML VIAL SQ SCH ×3 (05:54→22:28)
[2019-07-31] MEDS: ACETAMINOPHEN 1000 MG/100 ML VIAL (NON FORMULARY) IVPB PRN ×3 (05:55→22:34)
[2019-07-31] MEDS: INSULIN SLIDING SCALE (NOVOLOG) 1 VIAL SQ SCH ×4 (06:09→22:33)
[2019-07-31 07:10] LABS: ALBUMIN 2.7 g/dl (3.4-5.0); BILIRUBIN,TOTAL 2.1 mg/dL (0.2-1); BLOOD UREA NITROGEN 5.8 mg/dL (7-18); CALCIUM 7.4 mg/dL (8.5-10.1); CREATININE 0.7 mg/dL (0.55-1.3); MAGNESIUM 1.7 mg/dL (1.8-2.4); TOT PROT 5.9 g/dl (6.4-8.2)
[2019-07-31 07:17] LABS: HEMATOCRIT 40.9 % (35.4-49); HEMOGLOBIN 14.3 GM/dL (11.7-16.9); MCH 31.9 pg (25.7-33.7); MCHC 34.9 g/dl (32.0-35.9); MEAN CELL VOLUME 91.3 fl (80-96); MEAN PLT VOLUME 8.1 fl (7.5-11.1); PLATELET COUNT 165 K/MM3 (134-434); RBC 4.48 M/mm3 (4.00-5.60); RDW 15.8 % (11.9-15.9); WHITE BLOOD COUNT 9.2 K/mm3 (4.0-10.0)
[2019-07-31] MEDS ORDERED: MAGNESIUM SULF 50% (8.12 MEQ/2 ML-1 GM VIAL) IVPB ONE ×2 (07:32→16:18)
[2019-07-31 07:53] LABS: PHOSPHOROUS 0.6 mg/dL (2.5-4.9)
[2019-07-31] MEDS ORDERED: POTASSIUM PHOSPHATE 30 MM in SODIUM CHLORIDE 250 ML IVPB ONE ×2 (07:54→07:55)
[2019-07-31] MEDS: PROCHLORPERAZINE INJECTION 10 MG/2 ML VIAL IVPB PRN ×2 (08:05→13:50)
[2019-07-31] MEDS: PANTOPRAZOLE SODIUM 40 MG VIAL IVPUSH SCH (09:36)
[2019-07-31] MEDS: CARVEDILOL 25 MG TABLET (FP) PO SCH ×2 (09:36→22:28)
[2019-07-31] MEDS: ASPIRIN COATED 81 MG TABLET.EC PO SCH (09:36)
[2019-07-31] MEDS: MUPIROCIN 2% TOPICAL OINTMENT FOR DECOLONIZATION NS SCH ×2 (09:37→22:28)
[2019-07-31] MEDS ORDERED: PT OWN MED DRAWER 7, Y5N ONE (09:44)
--- NOTE | 2019-07-31 09:44 | PN ---
Teaching Attending Note Name of Resident: Carl Bates ATTENDING PHYSICIAN STATEMENT I saw and evaluated the patient. I reviewed the resident's note and discussed the case with the resident. I agree with the resident's findings and plan as documented. SUBJECTIVE:c/o nausea and vomiting. still has abdominal pain but R flank and back inbetween his scapula. requesting food. denies CP, SOB, fever, chills, C/D OBJECTIVE: Last Vital Signs Temp Pulse Resp BP Pulse Ox 99.9 F H 92 H 21 H 145/86 98 07/31/19 07:51 07/31/19 07:51 07/31/19 07:51 07/31/19 07:51 07/31/19 08:44 General diaphoretic CV S1 S2 RRR no murmur/rub/gallop Lungs CTA B/L no wheezing/rales/ronchi Abdomen soft diffuse tenderness back no tenderness along the spine or muscles ASSESSMENT AND PLAN: 54yo M wtih PMH DM, HTN, ETOH cirrhosis, CAD s/p stents and dyslipidemia presented to the ER wtih vomiting and anorexia and found to have acute pancreatitis 1. Acute pancreattitis- has appetite but remains nauseated with abdominal pain. will increase LR to 200cc/H and monitor. spiking fevers, if continues to tomorrow will get CT with contrast to evaluat for pancreatic abscess vs necrosis. will hold abx at this time. TG and u/s both negative for causes of pancreatitis. this is likely due to ETOH. cont NPO, IVF, nausea control 2. Hyperglycemia- imporved. re-start home dose of levemir. cont bgm and iss 3. SIRS- Tm 102.7. could be due to pancreatitis, sepsis workup ordered. UA and CXR negative. Bcx pending. if continues to spike tomorrow will get ct with contrast to assess pancreas as cause. hold abx 4. AGMA- likely due to ketosis from anorexia and not DKA. AG now closed. 5. Hyponatremia- due to dehydration. now resolved. corrected Na 135 6. Hypokalemia- KCL in IVF 7. Severe hypophosphatemia- Kphos. repeat later today 8. Pseudohypocalcemia- Corrected Ca 8.2 9. Transaminitis- likley due to ETOH use. hydrate. monitor, known Cirrhotic. u/ s negative for blockages 10. thrombocytopenia- due to cirrhosis 11. BEVERLY- due to dehydration. now resolved. cont IVF 12. Acute ETOH withdrawals- claims last drink was 2 weeks ago. some of his symptoms could be due to acute condition but high suspicion he may not be accurate in his timeline. ativan prn. if need to will start librium protocol. received banana bag on arrival. cont thimine/folate/mvi 13. Prolonged Qtc- monitor medications 14. DVT ppx- Hep sq 15. MICU monitoting The care of this patient involved high complexity decision making to prevent further life threatening deterioration of the patient's condition and/or to evaluate & treat vital organ system(s) failure or risk of failure. 38 minutes
[2019-07-31] MEDS: LACTATED RINGERS SOLUTION 1,000 ML/1,000 ML INFUS.BAG IV SCH (09:49)
[2019-07-31] MEDS: THIAMINE HCL 200 MG/2 ML VIAL IVPB SCH (09:49)
[2019-07-31] MEDS ORDERED: POTASSIUM PHOSPHATE 15 MM in SODIUM CHLORIDE 250 ML IVPB ONE ×3 (09:55→16:18)
--- NOTE | 2019-07-31 10:09 | PN ---
Progress Note (short form) - Note Progress Note: SEen and examined in the ICU cont to have nausea febrile 102 overnight, improved w/ APAP c/o gas AG closed on long acting insulin Current Medications Acetaminophen (Ofirmev Injection -) 1,000 mg IVPB Q6H PRN PRN Reason: fever or pain Last Admin: 07/31/19 05:55 Dose: 1,000 mg Aspirin (Ecotrin -) 81 mg PO DAILY [facility] Last Admin: 07/31/19 09:36 Dose: 81 mg Carvedilol (Coreg -) 25 mg PO BID [facility] Last Admin: 07/31/19 09:36 Dose: 25 mg Chlorhexidine Gluconate (Hibiclens For Decolonization -) 1 applic TP HS [facility] Last Admin: 07/30/19 21:51 Dose: 1 applic Heparin Sodium (Porcine) (Heparin -) 5,000 unit SQ TID [facility] Last Admin: 07/31/19 05:54 Dose: 5,000 unit Potassium Phosphate 30 mm/ (Sodium Chloride) 260 mls @ 62.5 mls/hr IVPB ONCE ONE Stop: 07/31/19 12:03 Last Admin: 07/31/19 09:34 Dose: 62.5 mls/hr Lactated Ringer's (Lactated Ringers Solution) 1,000 ml in 1,000 mls @ 200 mls/ hr IV ASDIR [facility] Last Admin: 07/31/19 09:49 Dose: 200 mls/hr Insulin Aspart (Novolog Vial Sliding Scale -) 1 vial SQ [facility]; Protocol Last Admin: 07/31/19 06:09 Dose: Not Given Insulin Detemir (Levemir Vial) 20 units SQ [facility] Last Admin: 07/30/19 21:51 Dose: 20 units Morphine Sulfate (Morphine Sulfate) 2 mg IVPUSH Q6H PRN PRN Reason: PAIN LEVEL 7 - 10 Last Admin: 07/31/19 09:54 Dose: 2 mg Mupirocin (Bactroban Ointment (For Decolonization) -) 1 applic NS BID [facility] Stop: 08/04/19 09:59 Last Admin: 07/31/19 09:37 Dose: 1 applic Pantoprazole Sodium (Protonix Iv) 40 mg IVPUSH DAILY [facility] Last Admin: 07/31/19 09:36 Dose: 40 mg Prochlorperazine Edisylate (Compazine Injection -) 2.5 mg IVPB Q4H PRN PRN Reason: NAUSEA AND/OR VOMITING Last Admin: 07/31/19 08:05 Dose: 2.5 mg Thiamine HCl (Vitamin B1 Injection -) 200 mg IVPB DAILY [facility] Last Admin: 07/31/19 09:49 Dose: 200 mg Vital Signs Period Temp Pulse Resp BP Sys/Mccoy Pulse Ox Last 24 Hr 98.1 F-102.7 F 82-105 18-22 117-165/74-100 98-98 Intake & Output 07/28/19 07/29/19 07/30/19 07/31/19 23:59 23:59 23:59 23:59 Intake Total 1000 2560 1900 Output Total 1600 1200 Balance 1000 960 700 Weight 92.215 kg 92.079 kg Exam: Neuro: AOX3, CARLISLE. CN grossly intact HEENT: PERRL CV: RRR Pulm: diminished in bases Abd: obese, distended, tender to palp LUQ Ext: WWP Problem List - Problems (1) Pancreatitis, acute Code(s): K85.90 - ACUTE PANCREATITIS WITHOUT NECROSIS OR INFECTION, UNSP Qualifiers: Pancreatitis type: alcohol induced Acute pancreatitis complication: unspecified Qualified Code(s): K85.20 - Alcohol induced acute pancreatitis without necrosis or infection (2) Diabetes Code(s): E11.9 - TYPE 2 DIABETES MELLITUS WITHOUT COMPLICATIONS Assessment/Plan This is a 54 yo man w/ EtOH abuse, IDDM who presented with abdomenal pain found to have DKA and acute pancreatitis, TG WNL, no obstruction seen on imaging -cont Lantus w/ ISS -advance diet as tolerated -cont IV hydration -thiamine/folic acid -monitor for signs of EtOH withdrawal -repleat lytes -cont BB -DVT ppx -simethicone for gas pain -stable for floor transfer to floor Boerem ACNP Pulm [facility] CCT: 35m Problem List - Problems (1) Pancreatitis, acute Code(s): K85.90 - ACUTE PANCREATITIS WITHOUT NECROSIS OR INFECTION, UNSP Qualifiers: Pancreatitis type: alcohol induced Acute pancreatitis complication: unspecified Qualified Code(s): K85.20 - Alcohol induced acute pancreatitis without necrosis or infection (2) Diabetes Code(s): E11.9 - TYPE 2 DIABETES MELLITUS WITHOUT COMPLICATIONS
[2019-07-31] MEDS ORDERED: SIMETHICONE 40 MG/0.6 ML BOTTLE PO PRN (10:16)
--- NOTE | 2019-07-31 11:34 | PN ---
Physical Exam: SUBJECTIVE: Patient seen and examined at bedside this morning. Noted to be febrile to Tmax 102.7F overnight. He endorses vomiting clear vomitus, nonbloody , nonbillious. Continues to endorse diffuse abdominal pain. OBJECTIVE: Vital Signs Period Temp Pulse Resp BP Sys/Mccoy Pulse Ox Last 24 Hr 98.1 F-102.7 F 82-101 18-22 117-165/74-100 98-98 GENERAL: Patient is awake, alert, and fully oriented, in no acute distress. HEAD: Normocephalic, atraumatic. EYES: Pupils equal, round and reactive to light, extraocular movements intact, sclera icteric. EARS, NOSE, THROAT: Oropharynx clear without exudates. Moist mucous membranes. NECK: Normal range of motion, supple without lymphadenopathy, JVD, or masses. LUNGS: Breath sounds equal, clear to auscultation bilaterally. No wheezes, and no crackles. No accessory muscle use. HEART: Regular rate and rhythm, normal S1 and S2 without murmur, rub or gallop. ABDOMEN: Distended. Diffuse tenderness to light palpation x4 quadrants. Hypoactive bowel sounds appreciated. No guarding, no rebound tenderness elicited. EXTREMITIES: 2+ pulses bilaterally, warm, well-perfused. No peripheral edema bilateral lower extremities. NEUROLOGICAL: Cranial nerves II-XII intact. Normal speech. PSYCHIATRIC: Cooperative. Appropriate mood and affect. SKIN: Warm, dry Laboratory Results - last 24 hr 07/29/19 07/30/19 07/30/19 21:05 08:00 11:37 WBC RBC Hgb Hct MCV MCH MCHC RDW Plt Count MPV Neutrophils % (Manual) 73.5 Band Neutrophils % 5.1 Lymphocytes % (Manual) 13.3 Monocytes % (Manual) 5 Eosinophils % (Manual) 0.0 Basophils % (Manual) 0.0 Myelocytes % (Man) 0 Promyelocytes % (Man) 0 Metamyelocytes 2 Hypochromia 0 Platelet Estimate Decreased Polychromasia 0 Poikilocytosis 0 Anisocytosis 0 Microcytosis 0 Macrocytosis 0 Sodium 129 L Potassium 3.2 L Chloride 90 L Carbon Dioxide 26 Anion Gap 13 BUN 18.2 H Creatinine 1.3 Est GFR (CKD-EPI)AfAm 70.69 Est GFR (CKD-EPI)NonAf 60.99 POC Glucometer 182 Random Glucose 353 H Calcium 8.0 L Phosphorus Cancelled Magnesium Cancelled Total Bilirubin AST ALT Alkaline Phosphatase Troponin I < 0.02 Total Protein Albumin Triglycerides 129 Cholesterol 200 Total LDL Cholesterol 125 H HDL Cholesterol 37 L Urine Color Urine Appearance Urine pH Ur Specific [place] Urine Protein Urine Glucose (UA) Urine Ketones Urine Blood Urine Nitrite Urine Bilirubin Urine Urobilinogen Ur Leukocyte Esterase Urine WBC (Auto) Urine RBC (Auto) Urine Casts (Auto) U Epithel Cells (Auto) Urine Bacteria (Auto) 07/30/19 07/30/19 07/30/19 12:33 14:00 17:16 WBC RBC Hgb Hct MCV MCH MCHC RDW Plt Count MPV Neutrophils % (Manual) Band Neutrophils % Lymphocytes % (Manual) Monocytes % (Manual) Eosinophils % (Manual) Basophils % (Manual) Myelocytes % (Man) Promyelocytes % (Man) Metamyelocytes Hypochromia Platelet Estimate Polychromasia Poikilocytosis Anisocytosis Microcytosis Macrocytosis Sodium Potassium Chloride Carbon Dioxide Anion Gap BUN Creatinine Est GFR (CKD-EPI)AfAm Est GFR (CKD-EPI)NonAf POC Glucometer 183 Random Glucose Calcium Phosphorus Magnesium Total Bilirubin AST ALT Alkaline Phosphatase Troponin I Total Protein Albumin Triglycerides 81 Cholesterol Total LDL Cholesterol HDL Cholesterol Urine Color Yellow Urine Appearance Clear Urine pH 6.0 Ur Specific [place] 1.015 Urine Protein 1+ H Urine Glucose (UA) Trace Urine Ketones 1+ H Urine Blood Negative Urine Nitrite Negative Urine Bilirubin 1+ H Urine Urobilinogen 0.2 Ur Leukocyte Esterase Negative Urine WBC (Auto) 2.2 Urine RBC (Auto) 1.6 Urine Casts (Auto) 15.05 U Epithel Cells (Auto) 1.9 Urine Bacteria (Auto) 0.8 07/30/19 07/30/19 07/31/19 18:20 21:47 05:10 WBC 9.2 RBC 4.48 Hgb 14.3 Hct 40.9 MCV 91.3 MCH 31.9 MCHC 34.9 RDW 15.8 Plt Count 165 D MPV 8.1 Neutrophils % (Manual) Band Neutrophils % Lymphocytes % (Manual) Monocytes % (Manual) Eosinophils % (Manual) Basophils % (Manual) Myelocytes % (Man) Promyelocytes % (Man) Metamyelocytes Hypochromia Platelet Estimate Polychromasia Poikilocytosis Anisocytosis Microcytosis Macrocytosis Sodium 137 Potassium 3.1 L Chloride 103 Carbon Dioxide 27 Anion Gap 8 BUN 9.2 Creatinine 0.9 Est GFR (CKD-EPI)AfAm 110.27 Est GFR (CKD-EPI)NonAf 95.14 POC Glucometer 166 Random Glucose 171 H Calcium 7.5 L Phosphorus 1.9 L Magnesium 2.2 Total Bilirubin AST ALT Alkaline Phosphatase Troponin I Total Protein Albumin Triglycerides 88 Cholesterol Total LDL Cholesterol HDL Cholesterol Urine Color Urine Appearance Urine pH Ur Specific [place] Urine Protein Urine Glucose (UA) Urine Ketones Urine Blood Urine Nitrite Urine Bilirubin Urine Urobilinogen Ur Leukocyte Esterase Urine WBC (Auto) Urine RBC (Auto) Urine Casts (Auto) U Epithel Cells (Auto) Urine Bacteria (Auto) 07/31/19 07/31/19 07/31/19 05:10 06:08 11:05 WBC RBC Hgb Hct MCV MCH MCHC RDW Plt Count MPV Neutrophils % (Manual) Band Neutrophils % Lymphocytes % (Manual) Monocytes % (Manual) Eosinophils % (Manual) Basophils % (Manual) Myelocytes % (Man) Promyelocytes % (Man) Metamyelocytes Hypochromia Platelet Estimate Polychromasia Poikilocytosis Anisocytosis Microcytosis Macrocytosis Sodium 136 Potassium 3.0 L Chloride 97 L Carbon Dioxide 30 Anion Gap 10 BUN 5.8 L Creatinine 0.7 Est GFR (CKD-EPI)AfAm 122.27 Est GFR (CKD-EPI)NonAf 105.50 POC Glucometer 142 140 Random Glucose 128 H Calcium 7.4 L Phosphorus 0.6 L* Magnesium 1.7 L Total Bilirubin 2.1 H AST 55 H ALT 37 Alkaline Phosphatase 71 Troponin I Total Protein 5.9 L Albumin 2.7 L Triglycerides Cholesterol Total LDL Cholesterol HDL Cholesterol Urine Color Urine Appearance Urine pH Ur Specific [place] Urine Protein Urine Glucose (UA) Urine Ketones Urine Blood Urine Nitrite Urine Bilirubin Urine Urobilinogen Ur Leukocyte Esterase Urine WBC (Auto) Urine RBC (Auto) Urine Casts (Auto) U Epithel Cells (Auto) Urine Bacteria (Auto) Active Medications Generic Name Dose Route Start Last Admin Trade Name Freq PRN Reason Stop Dose Admin Acetaminophen 1,000 mg 07/30/19 11:01 07/31/19 05:55 Ofirmev Injection - IVPB 1,000 mg Q6H PRN Administration fever or pain Aspirin 81 mg 07/30/19 10:00 07/31/19 09:36 Ecotrin - PO 81 mg DAILY [facility] Administration Carvedilol 25 mg 07/29/19 22:00 07/31/19 09:36 Coreg - PO 25 mg BID [facility] Administration Chlorhexidine Gluconate 1 applic 07/30/19 22:00 07/30/19 21:51 Hibiclens For Decolonization - TP 1 applic HS [facility] Administration Heparin Sodium (Porcine) 5,000 unit 07/30/19 06:00 07/31/19 05:54 Heparin - SQ 5,000 unit TID [facility] Administration Potassium Phosphate 30 mm/ 260 mls @ 62.5 mls/hr 07/31/19 07:54 07/31/19 09: 34 Sodium Chloride IVPB 07/31/19 12:03 62.5 mls/hr ONCE ONE Administration Lactated Ringer's 1,000 ml in 1,000 mls @ 200 mls/hr 07/31/19 09:46 07/31/19 09:49 Lactated Ringers Solution IV 200 mls/hr ASDIR [facility] Administration Insulin Aspart 1 vial 07/30/19 07:00 07/31/19 11:06 Novolog Vial Sliding Scale - SQ Not Given [facility] Protocol Insulin Detemir 20 units 07/30/19 00:57 07/30/19 21:51 Levemir Vial SQ 20 units HS [facility] Administration Morphine Sulfate 2 mg 07/30/19 01:48 07/31/19 09:54 Morphine Sulfate IVPUSH 2 mg Q6H PRN Administration PAIN LEVEL 7 - 10 Mupirocin 1 applic 07/30/19 10:00 07/31/19 09:37 Bactroban Ointment (For Decolonization) - NS 08/04/19 09:59 1 applic BID [facility] Administration Pantoprazole Sodium 40 mg 07/30/19 10:00 07/31/19 09:36 Protonix Iv IVPUSH 40 mg DAILY [facility] Administration Prochlorperazine Edisylate 2.5 mg 07/30/19 09:10 07/31/19 08:05 Compazine Injection - IVPB 2.5 mg Q4H PRN Administration NAUSEA AND/OR VOMITING Simethicone 80 mg 07/31/19 10:16 07/31/19 11:08 Mylicon Liquid - PO 80 mg QID PRN Administration GAS Thiamine HCl 200 mg 07/30/19 10:00 07/31/19 09:49 Vitamin B1 Injection - IVPB 200 mg DAILY [facility] Administration ASSESSMENT/PLAN: Patient is a 54 year old male with history of pancreatitis, gastritis, liver cirrhosis secondary to alcohol use, insulin dependent diabetes mellitus, hypertension, hyperlipidemia, coronary artery disease (s/p stent), admitted to ICU for pancreatitis. Pancreatitis -Diffuse abdominal pain persists. Noted patient febrile overnight. If continued fever, will obtain CT abdomen pelvis with contrast to evaluate for pancreatic necrosis. Follow cultures. -Right upper quadrant abdominal ultrasound reveals no cholelithiasis. Triglycerides 88. Etiology likely secondary to excessive alcohol consumption. -NPO -Morphine 2mg IV Q6 hours -IV Lactated Ringers at 200mL/ hour -ICU monitoring Hyperglycemia -Blood glucose 483 upon admission; improved to 128 today. -Insulin Levemir 20 units subq HS -Fingerstick blood glucose monitoring Q6 hours -Insulin sliding scale Q6 hours Anion gap metabolic acidosis -Resolved. Likely secondary to ketosis with excessive vomiting. Pseudohyponatremia -Likely secondary to hyperglycemia. Resolved. Hypophosphatemia, hypokalemia, hypomagnesemia -Repleted with Potassium Phosphate 30mmol. Will repeat BMP, Mg, Phos in afternoon. Acute kidney injury -Likely pre-renal etiology. Resolved. -IV Lactated Ringers at 125mL/ hour -Follow Renal ultrasound Alcohol withdrawal -Current CIWA score of 4. Has not yet required Ativan. Will monitor for signs of withdrawal. -Fall precautions -Thiamine 200mg IV daily Hepatic cirrhosis -Etiology likely secondary to excesive alcohol consumption -Right upper quadrant abdominal ultrasound reveals diffuse fatty infiltration. -Thrombocytopenia noted; secondary to patient cirrhosis. FEN -IV Lactated Ringers at 200mL/ hour -Hypokalemia, hypophosphatemia, hypomagnesemia -NPO Prophylaxis -Herparin 5000units subq TID -Protonix 40mg IV daily Disposition -Continue care in ICU. Visit type - Emergency Visit Emergency Visit: Yes ED Registration Date: 07/29/19 Care time: The patient presented to the Emergency Department on the above date and was hospitalized for further evaluation of their emergent condition. - New Patient This patient is new to me today: No - Critical Care Critical Care patient: Yes Total Critical Care Time (in minutes): 37 Critical Care Statement: The care of this patient involved high complexity decision making to prevent further life threatening deterioration of the patient 's condition and/or to evaluate & treat vital organ system(s) failure or risk of failure. - Discharge Referral Referred to [facility] No ATTENDING PHYSICIAN STATEMENT I saw and evaluated the patient. I reviewed the resident's note and discussed the case with the resident. I agree with the resident's findings and plan as documented. SUBJECTIVE: OBJECTIVE: ASSESSMENT AND PLAN:
[2019-07-31 15:58] LABS: BLOOD UREA NITROGEN 5.3 mg/dL (7-18); CALCIUM 7.2 mg/dL (8.5-10.1); CREATININE 0.5 mg/dL (0.55-1.3); MAGNESIUM 1.9 mg/dL (1.8-2.4)
[2019-07-31 16:10] LABS: POTASSIUM 2.9 mmol/L (3.5-5.1)
[2019-07-31] MEDS ORDERED: KCL 10 MEQ IVPB 10 MEQ/100 ML INFUS.BAG IVPB SCH (16:30)
--- NOTE | 2019-07-31 17:07 | EKG ---
Test Reason : Blood Pressure : / mmHG Vent. Rate : 106 BPM Atrial Rate : 106 BPM P-R Int : 178 ms QRS Dur : 152 ms QT Int : 394 ms P-R-T Axes : 045 -24 022 degrees QTc Int : 523 ms SINUS TACHYCARDIA RIGHT BUNDLE BRANCH BLOCK INFERIOR INFARCT (CITED ON OR BEFORE 16-FEB-2019) ABNORMAL ECG WHEN COMPARED WITH ECG OF 16-FEB-2019 10:31, QUESTIONABLE CHANGE IN INITIAL FORCES OF INFERIOR LEADS QT HAS LENGTHENED Confirmed by PARESH JAIME MD ([id number]) on 07/31/2019 5:07:25 PM Referred By: Confirmed By:PARESH JAIME MD
[2019-07-31 21:53] LABS: BLOOD UREA NITROGEN 5.5 mg/dL (7-18); CALCIUM 7.6 mg/dL (8.5-10.1); CREATININE 0.5 mg/dL (0.55-1.3); POTASSIUM 3.5 mmol/L (3.5-5.1)
[2019-07-31] MEDS: CHLORHEXIDINE GLUCONATE 4% CLEANSER FOR DECOLONIZATION TP SCH (22:28)
[2019-07-31] MEDS: INSULIN (LEVEMIR) 100 UNITS/ML UNITS SQ SCH (22:29)
[2019-08-01] MEDS: LACTATED RINGERS SOLUTION 1,000 ML/1,000 ML INFUS.BAG IV SCH ×4 (05:00→12:39)
[2019-08-01] MEDS ORDERED: PT OWN MED DRAWER 7, Y5N ONE (05:41)
[2019-08-01] MEDS: HEPARIN NA (PORCINE) 5,000 UNITS/ML 1ML VIAL SQ SCH ×3 (06:07→21:41)
[2019-08-01] MEDS: PROCHLORPERAZINE INJECTION 10 MG/2 ML VIAL IVPB PRN ×2 (06:09→18:15)
[2019-08-01] MEDS: INSULIN SLIDING SCALE (NOVOLOG) 1 VIAL SQ SCH ×4 (06:12→21:42)
[2019-08-01 06:41] LABS: HEMATOCRIT 37.7 % (35.4-49); HEMOGLOBIN 13.5 GM/dL (11.7-16.9); MCH 32.3 pg (25.7-33.7); MCHC 35.9 g/dl (32.0-35.9); MEAN CELL VOLUME 90.1 fl (80-96); MEAN PLT VOLUME 7.3 fl (7.5-11.1); PLATELET COUNT 221 K/MM3 (134-434); RBC 4.19 M/mm3 (4.00-5.60); RDW 16.1 % (11.9-15.9); WHITE BLOOD COUNT 8.9 K/mm3 (4.0-10.0)
[2019-08-01 07:06] LABS: ALBUMIN 2.4 g/dl (3.4-5.0); BILIRUBIN,DIRECT 1.4 mg/dL (0.0-0.2); BLOOD UREA NITROGEN 6.3 mg/dL (7-18); CALCIUM 7.5 mg/dL (8.5-10.1); CREATININE 0.4 mg/dL (0.55-1.3); MAGNESIUM 1.8 mg/dL (1.8-2.4); PHOSPHOROUS 1.3 mg/dL (2.5-4.9); TOT PROT 5.4 g/dl (6.4-8.2)
[2019-08-01 07:18] LABS: POTASSIUM 2.9 mmol/L (3.5-5.1)
[2019-08-01] MEDS ORDERED: POTASSIUM PHOSPHATE 15 MM in SODIUM CHLORIDE 250 ML IVPB ONE (08:15)
[2019-08-01] MEDS ORDERED: POTASSIUM CHLORIDE TABS 20 MEQ TABLET.ER (FP) PO ONE ×2 (09:00→22:32)
[2019-08-01] MEDS: MUPIROCIN 2% TOPICAL OINTMENT FOR DECOLONIZATION NS SCH ×2 (09:26→21:58)
[2019-08-01] MEDS: ASPIRIN COATED 81 MG TABLET.EC PO SCH (09:26)
[2019-08-01] MEDS: CARVEDILOL 25 MG TABLET (FP) PO SCH ×2 (09:26→21:41)
[2019-08-01] MEDS: PANTOPRAZOLE SODIUM 40 MG VIAL IVPUSH SCH (09:27)
[2019-08-01] MEDS: KCL 10 MEQ IVPB 10 MEQ/100 ML INFUS.BAG IVPB SCH ×3 (10:00→12:00)
[2019-08-01] MEDS: THIAMINE HCL 200 MG/2 ML VIAL IVPB SCH (10:36)
[2019-08-01] MEDS: ACETAMINOPHEN 1000 MG/100 ML VIAL (NON FORMULARY) IVPB PRN ×2 (12:57→23:38)
--- NOTE | 2019-08-01 13:32 | PN ---
Teaching Attending Note Name of Resident: Herman Amador ATTENDING PHYSICIAN STATEMENT I saw and evaluated the patient. I reviewed the resident's note and discussed the case with the resident. I agree with the resident's findings and plan as documented. SUBJECTIVE: Patient seen and examined in the ICU. Awake and alert. Denies CP or SOB. Mild abdominal discomfort. No occult bleeding noted. Intake & Output 07/29/19 07/30/19 07/31/19 08/01/19 23:59 23:59 23:59 23:59 Intake Total 1000 2560 4300 2700 Output Total 1600 2300 1800 Balance 9188 146 2502 900 Weight 203 lb 4.8 oz 203 lb 203 lb Last Vital Signs Temp Pulse Resp BP Pulse Ox 102.3 F H 96 H 22 H 130/110 H 98 08/01/19 06:00 08/01/19 06:00 08/01/19 06:00 08/01/19 06:00 07/31/19 19:47 Active Medications Acetaminophen (Ofirmev Injection -) 1,000 mg IVPB Q6H PRN PRN Reason: FEVER Last Admin: 08/01/19 12:57 Dose: 1,000 mg Aspirin (Ecotrin -) 81 mg PO DAILY [facility] Last Admin: 08/01/19 09:26 Dose: 81 mg Carvedilol (Coreg -) 25 mg PO BID [facility] Last Admin: 08/01/19 09:26 Dose: 25 mg Chlorhexidine Gluconate (Hibiclens For Decolonization -) 1 applic TP HS [facility] Last Admin: 07/31/19 22:28 Dose: 1 applic Heparin Sodium (Porcine) (Heparin -) 5,000 unit SQ TID [facility] Last Admin: 08/01/19 13:35 Dose: 5,000 unit Lactated Ringer's (Lactated Ringers Solution) 1,000 ml in 1,000 mls @ 250 mls/ hr IV ASDIR [facility] Last Admin: 08/01/19 12:39 Dose: 250 mls/hr Insulin Aspart (Novolog Vial Sliding Scale -) 1 vial SQ ACHS [facility]; Protocol Last Admin: 08/01/19 12:00 Dose: Not Given Insulin Detemir (Levemir Vial) 20 units SQ HS [facility] Last Admin: 07/31/19 22:29 Dose: 20 units Morphine Sulfate (Morphine Sulfate) 2 mg IVPUSH Q6H PRN PRN Reason: PAIN LEVEL 7 - 10 Last Admin: 07/31/19 09:54 Dose: 2 mg Mupirocin (Bactroban Ointment (For Decolonization) -) 1 applic NS BID [facility] Stop: 08/04/19 09:59 Last Admin: 08/01/19 09:26 Dose: 1 applic Pantoprazole Sodium (Protonix Iv) 40 mg IVPUSH DAILY [facility] Last Admin: 08/01/19 09:27 Dose: 40 mg Prochlorperazine Edisylate (Compazine Injection -) 2.5 mg IVPB Q4H PRN PRN Reason: NAUSEA AND/OR VOMITING Last Admin: 08/01/19 06:09 Dose: 2.5 mg Simethicone (Mylicon Liquid -) 80 mg PO QID PRN PRN Reason: GAS Last Admin: 07/31/19 11:08 Dose: 80 mg Thiamine HCl (Vitamin B1 Injection -) 200 mg IVPB DAILY [facility] Last Admin: 08/01/19 10:36 Dose: 200 mg Constitutional: Yes: Awake and alert, No Distress Eyes: Yes: Conjunctiva Clear, EOM Intact HENT: Yes: Normocephalic Respiratory: Yes: Clear to auscultation Gastrointestinal: Yes: Obese, (+) BS, soft, mild tenderness to palpation Extremities: Yes: WNL Edema: LLE: Trace, RLE: Trace Integumentary: Yes: WNL Neurological: Yes: Alert, Oriented ...Motor Strength: WNL Labs: Laboratory Results - last 24 hr 07/31/19 07/31/19 07/31/19 15:10 15:49 21:18 WBC RBC Hgb Hct MCV MCH MCHC RDW Plt Count MPV Sodium 136 133 L Potassium 2.9 L* 3.5 Chloride 98 95 L Carbon Dioxide 30 29 Anion Gap 8 9 BUN 5.3 L 5.5 L Creatinine 0.5 L 0.5 L Est GFR (CKD-EPI)AfAm 140.40 140.40 Est GFR (CKD-EPI)NonAf 121.14 121.14 POC Glucometer 147 Random Glucose 145 H 153 H Calcium 7.2 L 7.6 L Phosphorus 2.0 L 2.0 L Magnesium 1.9 Total Bilirubin Direct Bilirubin AST ALT Alkaline Phosphatase Total Protein Albumin Total Amylase 07/31/19 08/01/19 08/01/19 22:30 05:45 05:45 WBC 8.9 RBC 4.19 Hgb 13.5 Hct 37.7 MCV 90.1 MCH 32.3 MCHC 35.9 RDW 16.1 H Plt Count 221 D MPV 7.3 L Sodium 135 L Potassium 2.9 L* Chloride 94 L Carbon Dioxide 29 Anion Gap 12 BUN 6.3 L Creatinine 0.4 L Est GFR (CKD-EPI)AfAm 153.89 Est GFR (CKD-EPI)NonAf 132.78 POC Glucometer 162 Random Glucose 81 Calcium 7.5 L Phosphorus 1.3 L Magnesium 1.8 Total Bilirubin 2.0 H Direct Bilirubin 1.4 H AST 58 H ALT 33 Alkaline Phosphatase 76 Total Protein 5.4 L Albumin 2.4 L Total Amylase 182 H 08/01/19 08/01/19 06:11 12:38 WBC RBC Hgb Hct MCV MCH MCHC RDW Plt Count MPV Sodium Potassium Chloride Carbon Dioxide Anion Gap BUN Creatinine Est GFR (CKD-EPI)AfAm Est GFR (CKD-EPI)NonAf POC Glucometer 83 62 Random Glucose Calcium Phosphorus Magnesium Total Bilirubin Direct Bilirubin AST ALT Alkaline Phosphatase Total Protein Albumin Total Amylase Problem List - Problems (1) Pancreatitis, acute Code(s): K85.90 - ACUTE PANCREATITIS WITHOUT NECROSIS OR INFECTION, UNSP Qualifiers: Pancreatitis type: alcohol induced Acute pancreatitis complication: unspecified Qualified Code(s): K85.20 - Alcohol induced acute pancreatitis without necrosis or infection (2) Diabetes Code(s): E11.9 - TYPE 2 DIABETES MELLITUS WITHOUT COMPLICATIONS Assessment/Plan Resolving Hyperglycemia Obesity Risk factors concerning for OSAS No indication of ARDS Glycemic control with Lantus IVF Trial of clear liquids VTE prophylaxis OOB to chair Thiamine Folic acid Floor Dr Sifuentes
--- NOTE | 2019-08-01 14:25 | PN ---
Physical Exam: SUBJECTIVE: Patient seen and examined at bedside this AM. No acute events. OBJECTIVE: Vital Signs Period Temp Pulse Resp BP Sys/Mccoy Pulse Ox Last 24 Hr 99.1 F-102.3 F 83-96 17-22 130-168/78-110 98 GENERAL: The patient is awake, alert, and fully oriented, in no acute distress. HEAD: Normal with no signs of trauma. NECK: supple. LUNGS: Breath sounds equal, clear to auscultation bilaterally, no wheezes, no crackles, no accessory muscle use. HEART: Regular rate and rhythm, S1, S2 without murmur, rub or gallop. ABDOMEN: Soft, tender, non-distended, normoactive bowel sounds, No gudino cobb or cullens sign on exam, no guarding, no rebound. EXTREMITIES: 2+ pulses, warm, well-perfused, no edema. NEUROLOGICAL: Normal speech, gait not observed. PSYCH: Normal mood, normal affect. SKIN: Warm, dry, no rashes or lesions noted. Laboratory Results - last 24 hr 07/31/19 07/31/19 07/31/19 15:10 15:49 21:18 WBC RBC Hgb Hct MCV MCH MCHC RDW Plt Count MPV Sodium 136 133 L Potassium 2.9 L* 3.5 Chloride 98 95 L Carbon Dioxide 30 29 Anion Gap 8 9 BUN 5.3 L 5.5 L Creatinine 0.5 L 0.5 L Est GFR (CKD-EPI)AfAm 140.40 140.40 Est GFR (CKD-EPI)NonAf 121.14 121.14 POC Glucometer 147 Random Glucose 145 H 153 H Calcium 7.2 L 7.6 L Phosphorus 2.0 L 2.0 L Magnesium 1.9 Total Bilirubin Direct Bilirubin AST ALT Alkaline Phosphatase Total Protein Albumin Total Amylase 07/31/19 08/01/19 08/01/19 22:30 05:45 05:45 WBC 8.9 RBC 4.19 Hgb 13.5 Hct 37.7 MCV 90.1 MCH 32.3 MCHC 35.9 RDW 16.1 H Plt Count 221 D MPV 7.3 L Sodium 135 L Potassium 2.9 L* Chloride 94 L Carbon Dioxide 29 Anion Gap 12 BUN 6.3 L Creatinine 0.4 L Est GFR (CKD-EPI)AfAm 153.89 Est GFR (CKD-EPI)NonAf 132.78 POC Glucometer 162 Random Glucose 81 Calcium 7.5 L Phosphorus 1.3 L Magnesium 1.8 Total Bilirubin 2.0 H Direct Bilirubin 1.4 H AST 58 H ALT 33 Alkaline Phosphatase 76 Total Protein 5.4 L Albumin 2.4 L Total Amylase 182 H 08/01/19 08/01/19 06:11 12:38 WBC RBC Hgb Hct MCV MCH MCHC RDW Plt Count MPV Sodium Potassium Chloride Carbon Dioxide Anion Gap BUN Creatinine Est GFR (CKD-EPI)AfAm Est GFR (CKD-EPI)NonAf POC Glucometer 83 62 Random Glucose Calcium Phosphorus Magnesium Total Bilirubin Direct Bilirubin AST ALT Alkaline Phosphatase Total Protein Albumin Total Amylase Active Medications Generic Name Dose Route Start Last Admin Trade Name Freq PRN Reason Stop Dose Admin Acetaminophen 1,000 mg 08/01/19 11:50 08/01/19 12:57 Ofirmev Injection - IVPB 1,000 mg Q6H PRN Administration FEVER Aspirin 81 mg 07/30/19 10:00 08/01/19 09:26 Ecotrin - PO 81 mg DAILY [facility] Administration Carvedilol 25 mg 07/29/19 22:00 08/01/19 09:26 Coreg - PO 25 mg BID [facility] Administration Chlorhexidine Gluconate 1 applic 07/30/19 22:00 07/31/19 22:28 Hibiclens For Decolonization - TP 1 applic HS [facility] Administration Heparin Sodium (Porcine) 5,000 unit 07/30/19 06:00 08/01/19 13:35 Heparin - SQ 5,000 unit TID [facility] Administration Lactated Ringer's 1,000 ml in 1,000 mls @ 250 mls/hr 08/01/19 11:37 08/01/19 12:39 Lactated Ringers Solution IV 250 mls/hr ASDIR [facility] Administration Insulin Aspart 1 vial 07/30/19 07:00 08/01/19 12:00 Novolog Vial Sliding Scale - SQ Not Given ACHS [facility] Protocol Insulin Detemir 20 units 07/30/19 00:57 07/31/19 22:29 Levemir Vial SQ 20 units HS [facility] Administration Morphine Sulfate 2 mg 07/30/19 01:48 07/31/19 09:54 Morphine Sulfate IVPUSH 2 mg Q6H PRN Administration PAIN LEVEL 7 - 10 Mupirocin 1 applic 07/30/19 10:00 08/01/19 09:26 Bactroban Ointment (For Decolonization) - NS 08/04/19 09:59 1 applic BID [facility] Administration Pantoprazole Sodium 40 mg 07/30/19 10:00 08/01/19 09:27 Protonix Iv IVPUSH 40 mg DAILY [facility] Administration Prochlorperazine Edisylate 2.5 mg 07/30/19 09:10 08/01/19 06:09 Compazine Injection - IVPB 2.5 mg Q4H PRN Administration NAUSEA AND/OR VOMITING Simethicone 80 mg 07/31/19 10:16 07/31/19 11:08 Mylicon Liquid - PO 80 mg QID PRN Administration GAS Thiamine HCl 200 mg 07/30/19 10:00 08/01/19 10:36 Vitamin B1 Injection - IVPB 200 mg DAILY [facility] Administration ASSESSMENT/PLAN: Pt is a 54 Y/O M with a significant past medical history of IDDM, hypertension , hyperlipidemia, CAD status post stents, pancreatitis, cholecystitis, gastritis , liver cirrhosis and alcohol abuse who presented to [facility] due to abdominal pain, PO intolerance, and fatigue. #Neurology -> Neurologically intact - AAOX3, no focal neurological deficits. # Cardiology-> CAD s/p Stents/HTN/HLD -EKG: ST rate of 106 bpm, axis nml, intervals abnormal - pr:178ms, QRS:152ms, QTc:523ms, RBBB -c/w home carvedilol 25 BID. - holding statin in light of transaminitis. - Tele monitoring - continue ASA #ENDO-> hyperglycemia 2/2 poor insulin compliance/doubt DKA, most likely 2/2 starvation ketosis from vomiting - pt most likely was not in DKA given hco3>18, pH >7.3, although glucose was elevated >440, acetone was 1+ in urine - starvation ketosis 2/2 vomiting and pt noncompliance to insulin regimen. Currently, pt's gap is closed, appetite has improved, will advance diet as tolerated. - c/w 20 U Levemir HS. - sliding scale #GI-Pancreatitis - initial Lipase >1500, abdominal pain w/ radiation to back. - CT showing inflammatory pancreatitis, no signs of abscess or hemorrhagic necrosis. - Receiving IV fluids LR. - Compazine for nausea - Simethacone for gas. Pt had soft BM. - Tylenol for pain - CIWA negative for signs of acute withdrawal to alcohol. Thiamine given. #FEN LR w/ 40 mEQ KCL PO given, 3 bags of Kdur IV given for K 2.9. KPHOS given for hypophosphatemia. Monitor Potassium, PO4, BGM, Anion gap closed. advanced to clear liquid diet. #DVT ppx: HEP SQ TID Dispo: We will be transferring pt out of ICU to floors, as pt not showing any signs of DKA. Pt has an improved appetite currently and his pancreatitis has improved, along with his abdominal pain. Thank you for this consultative opportunity. Visit type - Emergency Visit Emergency Visit: Yes ED Registration Date: 07/29/19 Care time: The patient presented to the Emergency Department on the above date and was hospitalized for further evaluation of their emergent condition. - New Patient This patient is new to me today: Yes Date on this admission: 08/01/19 - Critical Care Critical Care patient: Yes Total Critical Care Time (in minutes): 35 Critical Care Statement: The care of this patient involved high complexity decision making to prevent further life threatening deterioration of the patient 's condition and/or to evaluate & treat vital organ system(s) failure or risk of failure. - Discharge Referral Referred to [facility] No ATTENDING PHYSICIAN STATEMENT I saw and evaluated the patient. I reviewed the resident's note and discussed the case with the resident. I agree with the resident's findings and plan as documented. SUBJECTIVE: OBJECTIVE: ASSESSMENT AND PLAN:
--- NOTE | 2019-08-01 14:51 | PN ---
Teaching Attending Note Name of Resident: Adele Chavez ATTENDING PHYSICIAN STATEMENT I saw and evaluated the patient. I reviewed the resident's note and discussed the case with the resident. I agree with the resident's findings and plan as documented. SUBJECTIVE:c/o epigastric pain with nausea and intermittent vomiting. denies CP , SOB, C/D OBJECTIVE: Last Vital Signs Temp Pulse Resp BP Pulse Ox 102.3 F H 96 H 22 H 130/110 H 98 08/01/19 06:00 08/01/19 06:00 08/01/19 06:00 08/01/19 06:00 07/31/19 19:47 Intake & Output 07/29/19 07/30/19 07/31/19 08/01/19 23:59 23:59 23:59 23:59 Intake Total 1000 2560 4300 2700 Output Total 1600 2300 1800 Balance 1532 549 2689 900 Weight 203 lb 4.8 oz 203 lb 203 lb General diaphoretic CV S1 S2 RRR no murmur/rub/gallop Lungs CTA B/L no wheezing/rales/ronchi Abdomen soft epigastric tenderness back no tenderness along the spine or muscles ASSESSMENT AND PLAN: 54yo M wtih PMH DM, HTN, ETOH cirrhosis, CAD s/p stents and dyslipidemia presented to the ER wtih vomiting and anorexia and found to have acute pancreatitis 1. Acute pancreattitis-likely due to ETOH. remains nauseated and tender. concern for persistent fevers. will obtain CT with contrast to visualize for abscess of necrosis. consult GI. increase IVF. cont NPO, IVF, nausea control 2. Hyperglycemia- improved. re-start home dose of levemir. cont bgm and iss 3. SIRS- Tm 102.3. sepsis workup negative. will re-culture if spikes again. f/u CT abdomen. hold abx. 4. AGMA- likely due to ketosis from anorexia and not DKA. AG now closed. 5. Hyponatremia- due to dehydration. now resolved. corrected Na 135 6. Hypokalemia- KCL in IVF 7. Severe hypophosphatemia- Kphos. repeat later today 8. Pseudohypocalcemia- Corrected Ca 8.2 9. Transaminitis- likley due to ETOH use. hydrate. monitor, known Cirrhotic. u/ s negative for blockages 10. thrombocytopenia- due to cirrhosis 11. BEVERLY- due to dehydration. now resolved. cont IVF 12. Acute ETOH withdrawals- claims last drink was 2 weeks ago. some of his symptoms could be due to acute condition but high suspicion he may not be accurate in his timeline. ativan prn. if need to will start librium protocol. received banana bag on arrival. cont thimine/folate/mvi 13. Prolonged Qtc- monitor medications 14. DVT ppx- Hep sq 15. MICU monitoring The care of this patient involved high complexity decision making to prevent further life threatening deterioration of the patient's condition and/or to evaluate & treat vital organ system(s) failure or risk of failure. 38 minutes
--- NOTE | 2019-08-01 15:52 | CON.GI ---
Consult Consult Specialty:: GI Referred by:: [facility] Reason for Consultation:: pancreatitis w fever - History of Present Illness Chief Complaint: abdominal pain History of Present Illness: 54M with h/o ETOH abuse (h/o pancreatitis and h/o ETOH withdrawal, drinks a styrafoam cup worth of whiskey daily), DM, presenting for the evaluation of epigastric abdominal pain with N/V and inability to tolerate PO at home for 11 days. Found to have acute pancreatitis based on labs and imaging. has been intermittently febrile since admission; most recent CT with contrast yesterday without evidence of pancreatic necrosis. Is receiving IVF, advanced to clears today and did not vomit. LFTs minimally abnormal (See labs). GI asked to further evaluate. - Past Medical History PLATE KEEPER: Yes: Seizure (ALCOHOL WITHDRAWAL,FREQUENT BLACKOUTS). No: CVA Cardio/Vascular: Yes: CAD (2 stents placed [facility] 2013), HTN, Hyperlipdemia. 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 [employer] History of Recent Travel: No Home Medications - Allergies Allergies/Adverse Reactions: Allergies Allergy/AdvReac Type Severity Reaction Status Date / Time No Known Allergies Allergy Verified 09/12/17 12:36 - Home Medications Home Medications: Ambulatory Orders Folic Acid - 1 mg PO DAILY #0 tablet 12/19/12 Multivitamins [Multivit ([facility] Formulary)] 1 udtab PO DAILY #0 tab 12/19/12 Tamsulosin HCl 0.4 mg PO DAILY 11/24/15 Carvedilol [Coreg -] 25 mg PO BID #60 tablet 10/25/16 Lancets/Blood Glucose Strips [Fora [id number] Strp-Lnct] 1 each AC #90 combo..pkg 05/07/17 Atorvastatin Ca [Lipitor] 10 mg PO HS 09/01/18 Famotidine [Pepcid] 40 mg PO DAILY 02/16/19 Multivitamin [One-Daily Multi-Vitamin] 1 each PO DAILY 02/16/19 Topiramate [Topamax] 50 mg PO BID 02/16/19 Aspirin Coated [Ecotrin -] 81 mg PO DAILY #30 tablet.ec 02/19/19 Insulin Glargine,Hum.rec.anlog [Basaglar Kwikpen U-100] 5 unit SQ AM 30 Days #1 5ml 02/19/19 Family Disease History - Family Disease History Family Disease History: Heart Disease: Father ( [place] age 88), Other: Mother ( young of allergic reaction) Review of Systems - Review of Systems Constitutional: reports: Fever. denies: Chills Eyes: reports: No Symptoms HENT: reports: No Symptoms Neck: reports: No Symptoms Cardiovascular: reports: No Symptoms Respiratory: reports: No Symptoms Gastrointestinal: reports: Abdominal Pain, Nausea, Vomiting. denies: Vomiting Blood Musculoskeletal: reports: No Symptoms Neurological: reports: No Symptoms Endocrine: reports: No Symptoms Hematology/Lymphatic: reports: No Symptoms Physical Exam-GI Vital Signs: Vital Signs Temperature 101.6 F H 08/01/19 14:00 Pulse Rate 95 H 08/01/19 14:00 Respiratory Rate 08/01/19 14:00 Blood Pressure 146/78 08/01/19 14:00 O2 Sat by Pulse Oximetry (%) 98 08/01/19 09:00 Constitutional: Yes: Well Nourished, No Distress, Calm Eyes: Yes: Conjunctiva Clear HENT: Yes: Atraumatic Cardiovascular: Yes: Regular Rate and Rhythm, Tachycardia Respiratory: Yes: CTA Bilaterally ...Palpate: Yes: Soft, Tenderness (epigastric ttp) ...Percussion: Yes: Tympanitic ...Rectal Exam: Yes: Deferred Integumentary: Yes: WNL Neurological: Yes: Alert, Oriented Psychiatric: Yes: Alert Labs: CBC, BMP 08/01/19 05:45 08/01/19 05:45 INR, PTT INR 1.31 (0.83-1.09) H 07/30/19 08:00 Hepatic Panel Total Bilirubin 2.0 mg/dL (0.2-1) H 08/01/19 05:45 Direct Bilirubin 1.4 mg/dL (0.0-0.2) H 08/01/19 05:45 AST 58 U/L (15-37) H 08/01/19 05:45 ALT 33 U/L (13-61) 08/01/19 05:45 Alkaline Phosphatase 76 U/L (45-117) 08/01/19 05:45 Albumin 2.4 g/dl (3.4-5.0) L 08/01/19 05:45 Admission: TB 3 AST 80 ALT 66 Imaging - Results Cat Scan: Report Reviewed (US - +gallbladder sludge CT - +hyperdense bile in gallbladder) Ultrasound: Report Reviewed Assessment/Plan Pancreatitis - likely ETOH given history. +persistent fevers. +mildly abnormal liver tests upon admit, possibly secondary to known chronic liver disease and edema surrounding CBD, but given gallbladder sludge, cannot exclude microlithiasis. No evidence of necrosis on yesterday's CT. Would recommend MRI/MRCP to assess pancreas and evaluate for obstruction Continue generous IVF as is being done Trend LFTs daily
--- NOTE | 2019-08-01 17:06 | PN ---
Physical Exam: SUBJECTIVE: Patient seen and examined. He reports having 3 episodes of diarrhea following introduction of clear fluids to diet. He has moderate left side abdominal pain with some generalized pain as well. He reports feeling hot while having fevers. He denies chills, nausea, and vomiting. OBJECTIVE: Vital Signs Period Temp Pulse Resp BP Sys/Mccoy Pulse Ox Last 24 Hr 98.8 F-102.3 F 74-98 16-22 130-168/78-110 98-98 GENERAL: Awake, alert, and fully oriented, in no acute distress. HEAD: Normal with no signs of trauma. EYES: Pupils equal, round and reactive to light, extraocular movements intact, sclera icteric, conjunctiva clear. No lid lag. EARS, NOSE, THROAT: Ears normal, nares patent, oropharynx clear without exudates. Moist mucous membranes. NECK: Normal range of motion, supple without lymphadenopathy, JVD, or masses. LUNGS: Breath sounds equal, clear to auscultation bilaterally. No wheezes, and no crackles. No accessory muscle use. HEART: Regular rate and rhythm, normal S1 and S2 without murmur, rub or gallop. ABDOMEN: Distended, diffuse tenderness to palpation, especially LUQ, hypoactive bowel sounds, no guarding, no rebound MUSCULOSKELETAL: Normal range of motion at all joints. No bony deformities or tenderness. No CVA tenderness. UPPER EXTREMITIES: 2+ pulses, warm, well-perfused. No cyanosis. No clubbing. No peripheral edema. LOWER EXTREMITIES: 2+ pulses, warm, well-perfused. No calf tenderness. No peripheral edema. NEUROLOGICAL: Cranial nerves II-XII intact. Normal speech. Normal gait. PSYCHIATRIC: Cooperative. Good eye contact. Appropriate mood and affect. SKIN: Warm, dry, normal turgor, no rashes or lesions noted, normal capillary refill. Laboratory Results - last 24 hr 07/31/19 07/31/19 08/01/19 21:18 22:30 05:45 WBC 8.9 RBC 4.19 Hgb 13.5 Hct 37.7 MCV 90.1 MCH 32.3 MCHC 35.9 RDW 16.1 H Plt Count 221 D MPV 7.3 L Sodium 133 L Potassium 3.5 Chloride 95 L Carbon Dioxide 29 Anion Gap 9 BUN 5.5 L Creatinine 0.5 L Est GFR (CKD-EPI)AfAm 140.40 Est GFR (CKD-EPI)NonAf 121.14 POC Glucometer 162 Random Glucose 153 H Calcium 7.6 L Phosphorus 2.0 L Magnesium Total Bilirubin Direct Bilirubin AST ALT Alkaline Phosphatase Total Protein Albumin Total Amylase 08/01/19 08/01/19 08/01/19 05:45 06:11 12:38 WBC RBC Hgb Hct MCV MCH MCHC RDW Plt Count MPV Sodium 135 L Potassium 2.9 L* Chloride 94 L Carbon Dioxide 29 Anion Gap 12 BUN 6.3 L Creatinine 0.4 L Est GFR (CKD-EPI)AfAm 153.89 Est GFR (CKD-EPI)NonAf 132.78 POC Glucometer 83 62 Random Glucose 81 Calcium 7.5 L Phosphorus 1.3 L Magnesium 1.8 Total Bilirubin 2.0 H Direct Bilirubin 1.4 H AST 58 H ALT 33 Alkaline Phosphatase 76 Total Protein 5.4 L Albumin 2.4 L Total Amylase 182 H 08/01/19 16:52 WBC RBC Hgb Hct MCV MCH MCHC RDW Plt Count MPV Sodium Potassium Chloride Carbon Dioxide Anion Gap BUN Creatinine Est GFR (CKD-EPI)AfAm Est GFR (CKD-EPI)NonAf POC Glucometer 125 Random Glucose Calcium Phosphorus Magnesium Total Bilirubin Direct Bilirubin AST ALT Alkaline Phosphatase Total Protein Albumin Total Amylase Active Medications Generic Name Dose Route Start Last Admin Trade Name Freq PRN Reason Stop Dose Admin Acetaminophen 1,000 mg 08/01/19 11:50 08/01/19 12:57 Ofirmev Injection - IVPB 1,000 mg Q6H PRN Administration FEVER Aspirin 81 mg 07/30/19 10:00 08/01/19 09:26 Ecotrin - PO 81 mg DAILY [facility] Administration Carvedilol 25 mg 07/29/19 22:00 08/01/19 09:26 Coreg - PO 25 mg BID [facility] Administration Chlorhexidine Gluconate 1 applic 07/30/19 22:00 07/31/19 22:28 Hibiclens For Decolonization - TP 1 applic HS [facility] Administration Heparin Sodium (Porcine) 5,000 unit 07/30/19 06:00 08/01/19 13:35 Heparin - SQ 5,000 unit TID [facility] Administration Lactated Ringer's 1,000 ml in 1,000 mls @ 250 mls/hr 08/01/19 11:37 08/01/19 12:39 Lactated Ringers Solution IV 250 mls/hr ASDIR [facility] Administration Insulin Aspart 1 vial 07/30/19 07:00 08/01/19 16:57 Novolog Vial Sliding Scale - SQ Not Given ACHS [facility] Protocol Insulin Detemir 20 units 07/30/19 00:57 07/31/19 22:29 Levemir Vial SQ 20 units HS [facility] Administration Morphine Sulfate 2 mg 07/30/19 01:48 07/31/19 09:54 Morphine Sulfate IVPUSH 2 mg Q6H PRN Administration PAIN LEVEL 7 - 10 Mupirocin 1 applic 07/30/19 10:00 08/01/19 09:26 Bactroban Ointment (For Decolonization) - NS 08/04/19 09:59 1 applic BID [facility] Administration Pantoprazole Sodium 40 mg 07/30/19 10:00 08/01/19 09:27 Protonix Iv IVPUSH 40 mg DAILY [facility] Administration Prochlorperazine Edisylate 2.5 mg 07/30/19 09:10 08/01/19 06:09 Compazine Injection - IVPB 2.5 mg Q4H PRN Administration NAUSEA AND/OR VOMITING Simethicone 80 mg 07/31/19 10:16 07/31/19 11:08 Mylicon Liquid - PO 80 mg QID PRN Administration GAS Thiamine HCl 200 mg 07/30/19 10:00 08/01/19 10:36 Vitamin B1 Injection - IVPB 200 mg DAILY [facility] Administration ASSESSMENT/PLAN: Mr. Knowles is a 54 y/o male with IDDM, HTN, HLD, CAD s/p PCI, pancreatitis, cholecystitis, gastritis, liver cirrhosis, and alcohol use disorder who presents with abdominal pain x 10 days. He was found to have BG of 483. #acute pancreatitis 2/2 ETOH use diffuse tenderness on exam. CT abdomen negative for necrosis or abscess -consult GI -NPO if clear liquid diet is not tolerated -LR 250mL/hr #anion gap metabolic acidosis, resolved anion gap closed, initially 21 on presentation with BG 483. Possible DKA component vs ketosis from anorexia #SIRS Temp 102.3. blood cultures negative. hold abx -fever responding to tylenol -repeat cultures if fever returns #hypokalemia 2.9 -IV KCl x 3 bags 10meq -recheck lytes and replenish as needed #hypophosphatemia 1.3 -Kphos -recheck lytes #DM BG 100s. -SSI -BGM #transaminitis, reactive vs ETOH use AST 58. improving. U/S fatty infiltration of liver -monitor #BEVERLY, resolved Cr 0.4. likely pre-renal from dehydration -continue hydration #alcohol use disorder Pt has not had drink in 7 days. Unlikely to have withdrawal seizure, CIWA ~4 -ativan PRN -supplement thiamine, folate, MV FEN NS monitor K, phos clear liquids DVT Prophylaxis herparin dispo admitted to medicine/ICU Visit type - Emergency Visit Emergency Visit: Yes ED Registration Date: 07/29/19 Care time: The patient presented to the Emergency Department on the above date and was hospitalized for further evaluation of their emergent condition. - New Patient This patient is new to me today: No - Critical Care Critical Care patient: Yes Total Critical Care Time (in minutes): 35 Critical Care Statement: The care of this patient involved high complexity decision making to prevent further life threatening deterioration of the patient 's condition and/or to evaluate & treat vital organ system(s) failure or risk of failure. - Discharge Referral Referred to [facility] No ATTENDING PHYSICIAN STATEMENT I saw and evaluated the patient. I reviewed the resident's note and discussed the case with the resident. I agree with the resident's findings and plan as documented. SUBJECTIVE: OBJECTIVE: ASSESSMENT AND PLAN:
[2019-08-01] MEDS: INSULIN (LEVEMIR) 100 UNITS/ML UNITS SQ SCH (21:42)
[2019-08-01] MEDS: CHLORHEXIDINE GLUCONATE 4% CLEANSER FOR DECOLONIZATION TP SCH (21:57)
[2019-08-01 22:22] LABS: BLOOD UREA NITROGEN 6.7 mg/dL (7-18); CALCIUM 7.9 mg/dL (8.5-10.1); CREATININE 0.6 mg/dL (0.55-1.3); POTASSIUM 3.3 mmol/L (3.5-5.1)
[2019-08-01 23:09] LABS: MAGNESIUM 1.8 mg/dL (1.8-2.4); PHOSPHOROUS 1.7 mg/dL (2.5-4.9)
[2019-08-02] MEDS: HEPARIN NA (PORCINE) 5,000 UNITS/ML 1ML VIAL SQ SCH ×3 (05:50→21:08)
[2019-08-02 06:35] LABS: BASO % 0.5 % (0-2.0); EOS % 1.7 % (0-4.5); LYMPH % 14.6 % (8-40); MCH 32.1 pg (25.7-33.7); MEAN CELL VOLUME 91.9 fl (80-96); MEAN PLT VOLUME 7.4 fl (7.5-11.1); MONO % 22.7 % (3.8-10.2); NEUT % 60.5 % (42.8-82.8); PLATELET COUNT 306 K/MM3 (134-434); RBC 4.03 M/mm3 (4.00-5.60); RDW 15.8 % (11.9-15.9); WHITE BLOOD COUNT 11.2 K/mm3 (4.0-10.0)
--- NOTE | 2019-08-02 06:37 | PN ---
Physical Exam: SUBJECTIVE: Patient seen and examined. He reports continued diffuse abdominal pain (4 out of 10), n/v/d. No blood in vomitus or stool. He reports generalized weakness. OBJECTIVE: Vital Signs Period Temp Pulse Resp BP Sys/Mccoy Pulse Ox Last 24 Hr 98.6 F-101.6 F 70-98 16-21 139-168/77-92 97-98 GENERAL: Awake, alert, and fully oriented, in no acute distress. HEAD: Normal with no signs of trauma. EYES: Pupils equal, round and reactive to light, extraocular movements intact, sclera icteric, conjunctiva clear. No lid lag. EARS, NOSE, THROAT: Ears normal, nares patent, oropharynx clear without exudates. Moist mucous membranes. NECK: Normal range of motion, supple without lymphadenopathy, JVD, or masses. LUNGS: Breath sounds equal, clear to auscultation bilaterally. No wheezes, and no crackles. No accessory muscle use. HEART: Regular rate and rhythm, normal S1 and S2 without murmur, rub or gallop. ABDOMEN: Distended, diffuse tenderness to palpation, especially LUQ, hypoactive bowel sounds, no guarding, no rebound MUSCULOSKELETAL: Normal range of motion at all joints. No bony deformities or tenderness. No CVA tenderness. UPPER EXTREMITIES: 2+ pulses, warm, well-perfused. No cyanosis. No clubbing. No peripheral edema. LOWER EXTREMITIES: 2+ pulses, warm, well-perfused. No calf tenderness. No peripheral edema. NEUROLOGICAL: Cranial nerves II-XII intact. Normal speech. Normal gait. PSYCHIATRIC: Cooperative. Good eye contact. Appropriate mood and affect. SKIN: Warm, dry, normal turgor, no rashes or lesions noted, normal capillary refill. Laboratory Results - last 24 hr 08/01/19 08/01/19 08/01/19 05:45 05:45 12:38 WBC 8.9 RBC 4.19 Hgb 13.5 Hct 37.7 MCV 90.1 MCH 32.3 MCHC 35.9 RDW 16.1 H Plt Count 221 D MPV 7.3 L Sodium 135 L Potassium 2.9 L* Chloride 94 L Carbon Dioxide 29 Anion Gap 12 BUN 6.3 L Creatinine 0.4 L Est GFR (CKD-EPI)AfAm 153.89 Est GFR (CKD-EPI)NonAf 132.78 POC Glucometer 62 Random Glucose 81 Calcium 7.5 L Phosphorus 1.3 L Magnesium 1.8 Total Bilirubin 2.0 H Direct Bilirubin 1.4 H AST 58 H ALT 33 Alkaline Phosphatase 76 Total Protein 5.4 L Albumin 2.4 L Total Amylase 182 H 08/01/19 08/01/19 08/01/19 16:52 17:30 21:30 WBC RBC Hgb Hct MCV MCH MCHC RDW Plt Count MPV Sodium Cancelled 135 L Potassium Cancelled 3.3 L Chloride Cancelled 98 Carbon Dioxide Cancelled 27 Anion Gap Cancelled 10 BUN Cancelled 6.7 L Creatinine Cancelled 0.6 Est GFR (CKD-EPI)AfAm Cancelled 130.27 Est GFR (CKD-EPI)NonAf Cancelled 112.40 POC Glucometer 125 Random Glucose Cancelled 188 H Calcium Cancelled 7.9 L Phosphorus Cancelled 1.7 L Magnesium Cancelled 1.8 Total Bilirubin Cancelled Direct Bilirubin AST Cancelled ALT Cancelled Alkaline Phosphatase Cancelled Total Protein Cancelled Albumin Cancelled Total Amylase 08/01/19 08/02/19 21:32 05:59 WBC RBC Hgb Hct MCV MCH MCHC RDW Plt Count MPV Sodium Potassium Chloride Carbon Dioxide Anion Gap BUN Creatinine Est GFR (CKD-EPI)AfAm Est GFR (CKD-EPI)NonAf POC Glucometer 196 79 Random Glucose Calcium Phosphorus Magnesium Total Bilirubin Direct Bilirubin AST ALT Alkaline Phosphatase Total Protein Albumin Total Amylase Active Medications Generic Name Dose Route Start Last Admin Trade Name Freq PRN Reason Stop Dose Admin Acetaminophen 1,000 mg 08/01/19 11:50 08/01/19 23:38 Ofirmev Injection - IVPB 1,000 mg Q6H PRN Administration FEVER Aspirin 81 mg 07/30/19 10:00 08/01/19 09:26 Ecotrin - PO 81 mg DAILY [facility] Administration Carvedilol 25 mg 07/29/19 22:00 08/01/19 21:41 Coreg - PO 25 mg BID [facility] Administration Chlorhexidine Gluconate 1 applic 07/30/19 22:00 08/01/19 21:57 Hibiclens For Decolonization - TP 1 applic HS [facility] Administration Heparin Sodium (Porcine) 5,000 unit 07/30/19 06:00 08/02/19 05:50 Heparin - SQ 5,000 unit TID [facility] Administration Lactated Ringer's 1,000 ml in 1,000 mls @ 250 mls/hr 08/01/19 11:37 08/01/19 12:39 Lactated Ringers Solution IV 250 mls/hr ASDIR [facility] Administration Insulin Aspart 1 vial 07/30/19 07:00 08/01/19 21:42 Novolog Vial Sliding Scale - SQ 2 units ACHS [facility] Administration Protocol Insulin Detemir 20 units 07/30/19 00:57 08/01/19 21:42 Levemir Vial SQ 20 units HS [facility] Administration Mupirocin 1 applic 07/30/19 10:00 08/01/19 21:58 Bactroban Ointment (For Decolonization) - NS 08/04/19 09:59 1 applic BID [facility] Administration Pantoprazole Sodium 40 mg 07/30/19 10:00 08/01/19 09:27 Protonix Iv IVPUSH 40 mg DAILY [facility] Administration Prochlorperazine Edisylate 2.5 mg 07/30/19 09:10 08/01/19 18:15 Compazine Injection - IVPB 2.5 mg Q4H PRN Administration NAUSEA AND/OR VOMITING Simethicone 80 mg 07/31/19 10:16 07/31/19 11:08 Mylicon Liquid - PO 80 mg QID PRN Administration GAS Thiamine HCl 200 mg 07/30/19 10:00 08/01/19 10:36 Vitamin B1 Injection - IVPB 200 mg DAILY [facility] Administration ASSESSMENT/PLAN: Mr. Knowles is a 54 y/o male with IDDM, HTN, HLD, CAD s/p PCI, pancreatitis, cholecystitis, gastritis, liver cirrhosis, and alcohol use disorder who presents with abdominal pain x 10 days. He was found to have BG of 483. #acute pancreatitis 2/2 ETOH use diffuse tenderness on exam continues. CT abdomen negative for necrosis or abscess. Total bili 0.9 today -MRCP tomorrow to rule out obstruction -NPO if clear liquid diet is not tolerated -LR 250mL/hr -CMP #SIRS Afebrile today. blood cultures negative. hold abx -repeat cultures if fever returns -begin ertapenem or meropenem if fever returns #hypokalemia 2.9 -IV KCl x 3 bags 10meq -recheck #hypophosphatemia 1.5 -Kphos 15mm x 1 -recheck #transaminitis, reactive vs ETOH use AST 59. stable. U/S fatty infiltration of liver -monitor #anion gap metabolic acidosis, resolved anion gap closed, initially 21 on presentation with BG 483. Possible DKA component vs ketosis from anorexia #BEVERLY, resolved Cr 0.4. likely pre-renal from dehydration -continue hydration #DM BG 100s. -SSI -BGM #alcohol use disorder Pt has not had drink in 7 days. Unlikely to have withdrawal seizure, CIWA ~4 -ativan PRN -supplement thiamine, folate, MV FEN NS monitor K, phos clear liquids DVT Prophylaxis herparin dispo admitted to medicine/ICU Visit type - Emergency Visit Emergency Visit: Yes ED Registration Date: 07/29/19 Care time: The patient presented to the Emergency Department on the above date and was hospitalized for further evaluation of their emergent condition. - New Patient This patient is new to me today: No - Critical Care Critical Care patient: No - Discharge Referral Referred to [facility] No ATTENDING PHYSICIAN STATEMENT I saw and evaluated the patient. I reviewed the resident's note and discussed the case with the resident. I agree with the resident's findings and plan as documented. SUBJECTIVE: OBJECTIVE: ASSESSMENT AND PLAN:
[2019-08-02] MEDS: INSULIN SLIDING SCALE (NOVOLOG) 1 VIAL SQ SCH ×4 (06:42→21:09)
[2019-08-02 06:55] LABS: ALBUMIN 2.3 g/dl (3.4-5.0); BILIRUBIN,TOTAL 1.8 mg/dL (0.2-1); BLOOD UREA NITROGEN 5.2 mg/dL (7-18); CREATININE 0.5 mg/dL (0.55-1.3); POTASSIUM 3.5 mmol/L (3.5-5.1); TOT PROT 5.4 g/dl (6.4-8.2)
[2019-08-02 08:10] LABS: MAGNESIUM 1.8 mg/dL (1.8-2.4); PHOSPHOROUS 1.5 mg/dL (2.5-4.9)
[2019-08-02] MEDS ORDERED: PT OWN MED DRAWER 7, Y5N ONE (09:41)
[2019-08-02] MEDS: CARVEDILOL 25 MG TABLET (FP) PO SCH ×2 (09:43→21:08)
[2019-08-02] MEDS: PANTOPRAZOLE SODIUM 40 MG VIAL IVPUSH SCH (09:43)
[2019-08-02] MEDS: ASPIRIN COATED 81 MG TABLET.EC PO SCH (09:43)
[2019-08-02] MEDS: LACTATED RINGERS SOLUTION 1,000 ML/1,000 ML INFUS.BAG IV SCH ×2 (09:44→14:08)
[2019-08-02] MEDS: MUPIROCIN 2% TOPICAL OINTMENT FOR DECOLONIZATION NS SCH ×2 (09:51→21:08)
[2019-08-02 09:56] LABS: ANISOCYTOSIS 0; MACROCYTOSIS 0; PLATELET ESTIMATE NORMAL; TOXIC GRANULATION 0
[2019-08-02] MEDS: THIAMINE HCL 200 MG/2 ML VIAL IVPB SCH (11:14)
[2019-08-02] MEDS ORDERED: POTASSIUM PHOSPHATE 15 MM in SODIUM CHLORIDE 250 ML IVPB ONE (13:00)
--- NOTE | 2019-08-02 13:29 | PN ---
Teaching Attending Note Name of Resident: Herman Amador ATTENDING PHYSICIAN STATEMENT I saw and evaluated the patient. I reviewed the resident's note and discussed the case with the resident. I agree with the resident's findings and plan as documented. SUBJECTIVE: Patient seen and examined in the ICU. Awake and alert. Denies CP or SOB. Mild abdominal discomfort. No occult bleeding noted. Intake & Output 07/30/19 07/31/19 08/01/19 08/02/19 23:59 23:59 23:59 23:59 Intake Total 2560 4300 7250 2050 Output Total 1600 2300 3640 800 Balance 960 2000 3610 1250 Weight 203 lb 203 lb 216 lb 4.8 oz Last Vital Signs Temp Pulse Resp BP Pulse Ox 100.1 F H 98 H 22 H 173/95 H 98 08/02/19 08:00 08/02/19 08:00 08/02/19 08:00 08/02/19 08:00 08/02/19 07:56 Active Medications Acetaminophen (Ofirmev Injection -) 1,000 mg IVPB Q6H PRN PRN Reason: FEVER Last Admin: 08/01/19 23:38 Dose: 1,000 mg Aspirin (Ecotrin -) 81 mg PO DAILY [facility] Last Admin: 08/02/19 09:43 Dose: 81 mg Carvedilol (Coreg -) 25 mg PO BID [facility] Last Admin: 08/02/19 09:43 Dose: 25 mg Chlorhexidine Gluconate (Hibiclens For Decolonization -) 1 applic TP HS [facility] Last Admin: 08/01/19 21:57 Dose: 1 applic Heparin Sodium (Porcine) (Heparin -) 5,000 unit SQ TID [facility] Last Admin: 08/02/19 05:50 Dose: 5,000 unit Lactated Ringer's (Lactated Ringers Solution) 1,000 ml in 1,000 mls @ 250 mls/ hr IV ASDIR [facility] Last Admin: 08/02/19 09:44 Dose: 250 mls/hr Potassium Phosphate 15 mm/ (Sodium Chloride) 255 mls @ 62.5 mls/hr IVPB ONCE ONE Stop: 08/02/19 17:04 Insulin Aspart (Novolog Vial Sliding Scale -) 1 vial SQ ACHS [facility]; Protocol Last Admin: 08/02/19 11:24 Dose: Not Given Insulin Detemir (Levemir Vial) 20 units SQ HS [facility] Last Admin: 08/01/19 21:42 Dose: 20 units Mupirocin (Bactroban Ointment (For Decolonization) -) 1 applic NS BID [facility] Stop: 08/04/19 09:59 Last Admin: 08/02/19 09:51 Dose: 1 applic Pantoprazole Sodium (Protonix Iv) 40 mg IVPUSH DAILY [facility] Last Admin: 08/02/19 09:43 Dose: 40 mg Prochlorperazine Edisylate (Compazine Injection -) 2.5 mg IVPB Q4H PRN PRN Reason: NAUSEA AND/OR VOMITING Last Admin: 08/01/19 18:15 Dose: 2.5 mg Simethicone (Mylicon Liquid -) 80 mg PO QID PRN PRN Reason: GAS Last Admin: 07/31/19 11:08 Dose: 80 mg Thiamine HCl (Vitamin B1 Injection -) 200 mg IVPB DAILY [facility] Last Admin: 08/02/19 11:14 Dose: 200 mg Constitutional: Yes: Awake and alert, No Distress Eyes: Yes: Conjunctiva Clear, EOM Intact HENT: Yes: Normocephalic Respiratory: Yes: Clear to auscultation Gastrointestinal: Yes: Obese, (+) BS, soft, mild tenderness to palpation Extremities: Yes: WNL Edema: LLE: Trace, RLE: Trace Integumentary: Yes: WNL Neurological: Yes: Alert, Oriented ...Motor Strength: WNL Labs: Laboratory Results - last 24 hr 08/01/19 08/01/19 08/01/19 16:52 17:30 21:30 WBC RBC Hgb Hct MCV MCH MCHC RDW Plt Count MPV Absolute Neuts (auto) Neutrophils % Neutrophils % (Manual) Band Neutrophils % Lymphocytes % Lymphocytes % (Manual) Monocytes % Monocytes % (Manual) Eosinophils % Eosinophils % (Manual) Basophils % Basophils % (Manual) Myelocytes % (Man) Promyelocytes % (Man) Blast Cells % (Manual) Nucleated RBC % Metamyelocytes Hypochromia Toxic Granulation Platelet Estimate Polychromasia Poikilocytosis Anisocytosis Microcytosis Macrocytosis Sodium Cancelled 135 L Potassium Cancelled 3.3 L Chloride Cancelled 98 Carbon Dioxide Cancelled 27 Anion Gap Cancelled 10 BUN Cancelled 6.7 L Creatinine Cancelled 0.6 Est GFR (CKD-EPI)AfAm Cancelled 130.27 Est GFR (CKD-EPI)NonAf Cancelled 112.40 POC Glucometer 125 Random Glucose Cancelled 188 H Calcium Cancelled 7.9 L Phosphorus Cancelled 1.7 L Magnesium Cancelled 1.8 Total Bilirubin Cancelled AST Cancelled ALT Cancelled Alkaline Phosphatase Cancelled Total Protein Cancelled Albumin Cancelled 08/01/19 08/02/19 08/02/19 21:32 05:59 06:15 WBC RBC Hgb Hct MCV MCH MCHC RDW Plt Count MPV Absolute Neuts (auto) Neutrophils % Neutrophils % (Manual) Band Neutrophils % Lymphocytes % Lymphocytes % (Manual) Monocytes % Monocytes % (Manual) Eosinophils % Eosinophils % (Manual) Basophils % Basophils % (Manual) Myelocytes % (Man) Promyelocytes % (Man) Blast Cells % (Manual) Nucleated RBC % Metamyelocytes Hypochromia Toxic Granulation Platelet Estimate Polychromasia Poikilocytosis Anisocytosis Microcytosis Macrocytosis Sodium 137 Potassium 3.5 Chloride 98 Carbon Dioxide 31 Anion Gap 8 BUN 5.2 L Creatinine 0.5 L Est GFR (CKD-EPI)AfAm 140.40 Est GFR (CKD-EPI)NonAf 121.14 POC Glucometer 196 79 Random Glucose 77 Calcium 8.0 L Phosphorus 1.5 L Magnesium 1.8 Total Bilirubin 1.8 H AST 59 H ALT 28 Alkaline Phosphatase 79 Total Protein 5.4 L Albumin 2.3 L 08/02/19 08/02/19 06:15 11:22 WBC 11.2 H RBC 4.03 Hgb 13.0 Hct 37.0 MCV 91.9 MCH 32.1 MCHC 35.0 RDW 15.8 Plt Count 306 D MPV 7.4 L Absolute Neuts (auto) 6.8 Neutrophils % 60.5 Neutrophils % (Manual) 61.4 Band Neutrophils % 2.0 Lymphocytes % 14.6 D Lymphocytes % (Manual) 17.8 D Monocytes % 22.7 H D Monocytes % (Manual) 15 H D Eosinophils % 1.7 D Eosinophils % (Manual) 2.0 D Basophils % 0.5 Basophils % (Manual) 0.0 Myelocytes % (Man) 0 Promyelocytes % (Man) 0 Blast Cells % (Manual) 0 Nucleated RBC % 0 Metamyelocytes 1 D Hypochromia 0 Toxic Granulation 0 Platelet Estimate Normal Polychromasia 0 Poikilocytosis 0 Anisocytosis 0 Microcytosis 0 Macrocytosis 0 Sodium Potassium Chloride Carbon Dioxide Anion Gap BUN Creatinine Est GFR (CKD-EPI)AfAm Est GFR (CKD-EPI)NonAf POC Glucometer 108 Random Glucose Calcium Phosphorus Magnesium Total Bilirubin AST ALT Alkaline Phosphatase Total Protein Albumin Problem List - Problems (1) Pancreatitis, acute Code(s): K85.90 - ACUTE PANCREATITIS WITHOUT NECROSIS OR INFECTION, UNSP Qualifiers: Pancreatitis type: alcohol induced Acute pancreatitis complication: unspecified Qualified Code(s): K85.20 - Alcohol induced acute pancreatitis without necrosis or infection (2) Diabetes Code(s): E11.9 - TYPE 2 DIABETES MELLITUS WITHOUT COMPLICATIONS Assessment/Plan Resolving Hyperglycemia Obesity Risk factors concerning for OSAS No clinical indication of ARDS For MRCP Glycemic control with Lantus IVF Clear liquids VTE prophylaxis OOB to chair Thiamine Folic acid Floor Dr Sifuentes
--- NOTE | 2019-08-02 16:23 | PN.GI ---
GI Progress Note Subjective: No acute events Describes continued abdominal discomfort - Objective Vital Signs: Vital Signs Temperature 100 F H 08/02/19 14:30 Pulse Rate 90 08/02/19 16:00 Respiratory Rate 20 08/02/19 16:00 Blood Pressure 155/91 08/02/19 16:00 O2 Sat by Pulse Oximetry (%) 98 08/02/19 07:56 Constitutional: Calm Eyes: No: Sclera Icterus Cardiovascular: Yes: Regular Rate and Rhythm Respiratory: Yes: Diminished (at bases bilaterally) Gastrointestinal Inspection: No: Scars ...Auscultate: Yes: Normoactive Bowel Sounds ...Palpate: Yes: Soft, Tenderness (TTP mid abdomen). No: Hepatomegaly, Splenomegaly Edema: No (No LE edema) Neurological: No: [facility] Labs: CBC, BMP 08/02/19 06:15 08/02/19 06:15 INR, PTT INR 1.31 (0.83-1.09) H 07/30/19 08:00 Problem List - Problems (1) Pancreatitis, alcoholic, acute Assessment/Plan: Clinically appears well without peritoneal signs. Doubt biliary etiology Await MRCP Clear liquids IV Hydration as tolerated. Currently at 250cc/hr. Monitor I's and O's Stool for C. Diff if loose bowel movements persist Monitor LFTs Check screening hepatitis serologies if not recently performed: hepatitis C antibody, Hepatitis B surface antibody, B surface antigen, B surface antigen, B core antibody, hepatitis A antibody. Will need hepatitis B vaccination if serologies not consistent with immunity Advised the need for complete alcohol cessation D/C'd PPI Code(s): K85.20 - ALCOHOL INDUCED ACUTE PANCREATITIS WITHOUT NECROSIS OR INFCT
--- NOTE | 2019-08-02 16:48 | PN ---
Physical Exam: SUBJECTIVE: Patient seen and examined OBJECTIVE: Vital Signs Period Temp Pulse Resp BP Sys/Mccoy Pulse Ox Last 24 Hr 98.6 F-100.1 F 70-98 18-23 139-173/77-95 97-98 GENERAL: The patient is awake, alert, and fully oriented, in no acute distress. HEAD: Normal with no signs of trauma. EYES: PERRL, extraocular movements intact, sclera anicteric, conjunctiva clear. No ptosis. ENT: Ears normal, nares patent, oropharynx clear without exudates, moist mucous membranes. NECK: Trachea midline, full range of motion, supple. LUNGS: Breath sounds equal, clear to auscultation bilaterally, no wheezes, no crackles, no accessory muscle use. HEART: Regular rate and rhythm, S1, S2 without murmur, rub or gallop. ABDOMEN: Soft, nontender, nondistended, normoactive bowel sounds, no guarding, no rebound, no hepatosplenomegaly, no masses. EXTREMITIES: 2+ pulses, warm, well-perfused, no edema. NEUROLOGICAL: Cranial nerves II through XII grossly intact. Normal speech, gait not observed. PSYCH: Normal mood, normal affect. SKIN: Warm, dry, normal turgor, no rashes or lesions noted Laboratory Results - last 24 hr 08/01/19 08/01/19 08/01/19 16:52 17:30 21:30 WBC RBC Hgb Hct MCV MCH MCHC RDW Plt Count MPV Absolute Neuts (auto) Neutrophils % Neutrophils % (Manual) Band Neutrophils % Lymphocytes % Lymphocytes % (Manual) Monocytes % Monocytes % (Manual) Eosinophils % Eosinophils % (Manual) Basophils % Basophils % (Manual) Myelocytes % (Man) Promyelocytes % (Man) Blast Cells % (Manual) Nucleated RBC % Metamyelocytes Hypochromia Toxic Granulation Platelet Estimate Polychromasia Poikilocytosis Anisocytosis Microcytosis Macrocytosis Sodium Cancelled 135 L Potassium Cancelled 3.3 L Chloride Cancelled 98 Carbon Dioxide Cancelled 27 Anion Gap Cancelled 10 BUN Cancelled 6.7 L Creatinine Cancelled 0.6 Est GFR (CKD-EPI)AfAm Cancelled 130.27 Est GFR (CKD-EPI)NonAf Cancelled 112.40 POC Glucometer 125 Random Glucose Cancelled 188 H Calcium Cancelled 7.9 L Phosphorus Cancelled 1.7 L Magnesium Cancelled 1.8 Total Bilirubin Cancelled AST Cancelled ALT Cancelled Alkaline Phosphatase Cancelled Total Protein Cancelled Albumin Cancelled 08/01/19 08/02/19 08/02/19 21:32 05:59 06:15 WBC RBC Hgb Hct MCV MCH MCHC RDW Plt Count MPV Absolute Neuts (auto) Neutrophils % Neutrophils % (Manual) Band Neutrophils % Lymphocytes % Lymphocytes % (Manual) Monocytes % Monocytes % (Manual) Eosinophils % Eosinophils % (Manual) Basophils % Basophils % (Manual) Myelocytes % (Man) Promyelocytes % (Man) Blast Cells % (Manual) Nucleated RBC % Metamyelocytes Hypochromia Toxic Granulation Platelet Estimate Polychromasia Poikilocytosis Anisocytosis Microcytosis Macrocytosis Sodium 137 Potassium 3.5 Chloride 98 Carbon Dioxide 31 Anion Gap 8 BUN 5.2 L Creatinine 0.5 L Est GFR (CKD-EPI)AfAm 140.40 Est GFR (CKD-EPI)NonAf 121.14 POC Glucometer 196 79 Random Glucose 77 Calcium 8.0 L Phosphorus 1.5 L Magnesium 1.8 Total Bilirubin 1.8 H AST 59 H ALT 28 Alkaline Phosphatase 79 Total Protein 5.4 L Albumin 2.3 L 08/02/19 08/02/19 06:15 11:22 WBC 11.2 H RBC 4.03 Hgb 13.0 Hct 37.0 MCV 91.9 MCH 32.1 MCHC 35.0 RDW 15.8 Plt Count 306 D MPV 7.4 L Absolute Neuts (auto) 6.8 Neutrophils % 60.5 Neutrophils % (Manual) 61.4 Band Neutrophils % 2.0 Lymphocytes % 14.6 D Lymphocytes % (Manual) 17.8 D Monocytes % 22.7 H D Monocytes % (Manual) 15 H D Eosinophils % 1.7 D Eosinophils % (Manual) 2.0 D Basophils % 0.5 Basophils % (Manual) 0.0 Myelocytes % (Man) 0 Promyelocytes % (Man) 0 Blast Cells % (Manual) 0 Nucleated RBC % 0 Metamyelocytes 1 D Hypochromia 0 Toxic Granulation 0 Platelet Estimate Normal Polychromasia 0 Poikilocytosis 0 Anisocytosis 0 Microcytosis 0 Macrocytosis 0 Sodium Potassium Chloride Carbon Dioxide Anion Gap BUN Creatinine Est GFR (CKD-EPI)AfAm Est GFR (CKD-EPI)NonAf POC Glucometer 108 Random Glucose Calcium Phosphorus Magnesium Total Bilirubin AST ALT Alkaline Phosphatase Total Protein Albumin Active Medications Generic Name Dose Route Start Last Admin Trade Name Freq PRN Reason Stop Dose Admin Acetaminophen 1,000 mg 08/01/19 11:50 08/01/19 23:38 Ofirmev Injection - IVPB 1,000 mg Q6H PRN Administration FEVER Aspirin 81 mg 07/30/19 10:00 08/02/19 09:43 Ecotrin - PO 81 mg DAILY [facility] Administration Carvedilol 25 mg 07/29/19 22:00 08/02/19 09:43 Coreg - PO 25 mg BID [facility] Administration Chlorhexidine Gluconate 1 applic 07/30/19 22:00 08/01/19 21:57 Hibiclens For Decolonization - TP 1 applic HS [facility] Administration Heparin Sodium (Porcine) 5,000 unit 07/30/19 06:00 08/02/19 14:12 Heparin - SQ 5,000 unit TID [facility] Administration Lactated Ringer's 1,000 ml in 1,000 mls @ 250 mls/hr 08/01/19 11:37 08/02/19 14:08 Lactated Ringers Solution IV Not Given ASDIR [facility] Potassium Phosphate 15 mm/ 255 mls @ 62.5 mls/hr 08/02/19 13:00 08/02/19 14: 08 Sodium Chloride IVPB 08/02/19 17:04 62.5 mls/hr ONCE ONE Administration Insulin Aspart 1 vial 07/30/19 07:00 08/02/19 11:24 Novolog Vial Sliding Scale - SQ Not Given [facility] Protocol Insulin Detemir 20 units 07/30/19 00:57 08/01/19 21:42 Levemir Vial SQ 20 units HS [facility] Administration Mupirocin 1 applic 07/30/19 10:00 08/02/19 09:51 Bactroban Ointment (For Decolonization) - NS 08/04/19 09:59 1 applic BID [facility] Administration Prochlorperazine Edisylate 2.5 mg 07/30/19 09:10 08/01/19 18:15 Compazine Injection - IVPB 2.5 mg Q4H PRN Administration NAUSEA AND/OR VOMITING Simethicone 80 mg 07/31/19 10:16 07/31/19 11:08 Mylicon Liquid - PO 80 mg QID PRN Administration GAS Thiamine HCl 200 mg 07/30/19 10:00 08/02/19 11:14 Vitamin B1 Injection - IVPB 200 mg DAILY [facility] Administration ASSESSMENT/PLAN:
--- NOTE | 2019-08-02 16:50 | PN ---
Physical Exam: SUBJECTIVE: Patient seen and examined at bedside this AM. No acute events other than some diarrhea, watery, non-foul smelling, no recent abx use. OBJECTIVE: Vital Signs Period Temp Pulse Resp BP Sys/Mccoy Pulse Ox Last 24 Hr 98.6 F-100.1 F 70-98 18-23 139-173/77-95 97-98 GENERAL: The patient is awake, alert, and fully oriented, in no acute distress. LUNGS: Breath sounds equal, clear to auscultation bilaterally, no wheezes, no crackles, no accessory muscle use. HEART: Regular rate and rhythm, S1, S2 without murmur, rub or gallop. ABDOMEN: Soft, slightly tender to palpation, improved distention, normoactive bowel sounds, no guarding, no rebound, no gudino cobb cullens sign on exam. EXTREMITIES: 2+ pulses, warm, well-perfused, no edema. PSYCH: Normal mood, normal affect. SKIN: Warm, dry, no rashes or lesions noted Laboratory Results - last 24 hr 08/01/19 08/01/19 08/01/19 16:52 17:30 21:30 WBC RBC Hgb Hct MCV MCH MCHC RDW Plt Count MPV Absolute Neuts (auto) Neutrophils % Neutrophils % (Manual) Band Neutrophils % Lymphocytes % Lymphocytes % (Manual) Monocytes % Monocytes % (Manual) Eosinophils % Eosinophils % (Manual) Basophils % Basophils % (Manual) Myelocytes % (Man) Promyelocytes % (Man) Blast Cells % (Manual) Nucleated RBC % Metamyelocytes Hypochromia Toxic Granulation Platelet Estimate Polychromasia Poikilocytosis Anisocytosis Microcytosis Macrocytosis Sodium Cancelled 135 L Potassium Cancelled 3.3 L Chloride Cancelled 98 Carbon Dioxide Cancelled 27 Anion Gap Cancelled 10 BUN Cancelled 6.7 L Creatinine Cancelled 0.6 Est GFR (CKD-EPI)AfAm Cancelled 130.27 Est GFR (CKD-EPI)NonAf Cancelled 112.40 POC Glucometer 125 Random Glucose Cancelled 188 H Calcium Cancelled 7.9 L Phosphorus Cancelled 1.7 L Magnesium Cancelled 1.8 Total Bilirubin Cancelled AST Cancelled ALT Cancelled Alkaline Phosphatase Cancelled Total Protein Cancelled Albumin Cancelled 08/01/19 08/02/19 08/02/19 21:32 05:59 06:15 WBC RBC Hgb Hct MCV MCH MCHC RDW Plt Count MPV Absolute Neuts (auto) Neutrophils % Neutrophils % (Manual) Band Neutrophils % Lymphocytes % Lymphocytes % (Manual) Monocytes % Monocytes % (Manual) Eosinophils % Eosinophils % (Manual) Basophils % Basophils % (Manual) Myelocytes % (Man) Promyelocytes % (Man) Blast Cells % (Manual) Nucleated RBC % Metamyelocytes Hypochromia Toxic Granulation Platelet Estimate Polychromasia Poikilocytosis Anisocytosis Microcytosis Macrocytosis Sodium 137 Potassium 3.5 Chloride 98 Carbon Dioxide 31 Anion Gap 8 BUN 5.2 L Creatinine 0.5 L Est GFR (CKD-EPI)AfAm 140.40 Est GFR (CKD-EPI)NonAf 121.14 POC Glucometer 196 79 Random Glucose 77 Calcium 8.0 L Phosphorus 1.5 L Magnesium 1.8 Total Bilirubin 1.8 H AST 59 H ALT 28 Alkaline Phosphatase 79 Total Protein 5.4 L Albumin 2.3 L 08/02/19 08/02/19 06:15 11:22 WBC 11.2 H RBC 4.03 Hgb 13.0 Hct 37.0 MCV 91.9 MCH 32.1 MCHC 35.0 RDW 15.8 Plt Count 306 D MPV 7.4 L Absolute Neuts (auto) 6.8 Neutrophils % 60.5 Neutrophils % (Manual) 61.4 Band Neutrophils % 2.0 Lymphocytes % 14.6 D Lymphocytes % (Manual) 17.8 D Monocytes % 22.7 H D Monocytes % (Manual) 15 H D Eosinophils % 1.7 D Eosinophils % (Manual) 2.0 D Basophils % 0.5 Basophils % (Manual) 0.0 Myelocytes % (Man) 0 Promyelocytes % (Man) 0 Blast Cells % (Manual) 0 Nucleated RBC % 0 Metamyelocytes 1 D Hypochromia 0 Toxic Granulation 0 Platelet Estimate Normal Polychromasia 0 Poikilocytosis 0 Anisocytosis 0 Microcytosis 0 Macrocytosis 0 Sodium Potassium Chloride Carbon Dioxide Anion Gap BUN Creatinine Est GFR (CKD-EPI)AfAm Est GFR (CKD-EPI)NonAf POC Glucometer 108 Random Glucose Calcium Phosphorus Magnesium Total Bilirubin AST ALT Alkaline Phosphatase Total Protein Albumin Active Medications Generic Name Dose Route Start Last Admin Trade Name Freq PRN Reason Stop Dose Admin Acetaminophen 1,000 mg 08/01/19 11:50 08/01/19 23:38 Ofirmev Injection - IVPB 1,000 mg Q6H PRN Administration FEVER Aspirin 81 mg 07/30/19 10:00 08/02/19 09:43 Ecotrin - PO 81 mg DAILY [facility] Administration Carvedilol 25 mg 07/29/19 22:00 08/02/19 09:43 Coreg - PO 25 mg BID [facility] Administration Chlorhexidine Gluconate 1 applic 07/30/19 22:00 08/01/19 21:57 Hibiclens For Decolonization - TP 1 applic HS [facility] Administration Heparin Sodium (Porcine) 5,000 unit 07/30/19 06:00 08/02/19 14:12 Heparin - SQ 5,000 unit TID [facility] Administration Lactated Ringer's 1,000 ml in 1,000 mls @ 250 mls/hr 08/01/19 11:37 08/02/19 14:08 Lactated Ringers Solution IV Not Given ASDIR [facility] Potassium Phosphate 15 mm/ 255 mls @ 62.5 mls/hr 08/02/19 13:00 08/02/19 14: 08 Sodium Chloride IVPB 08/02/19 17:04 62.5 mls/hr ONCE ONE Administration Insulin Aspart 1 vial 07/30/19 07:00 08/02/19 11:24 Novolog Vial Sliding Scale - SQ Not Given ACHS [facility] Protocol Insulin Detemir 20 units 07/30/19 00:57 08/01/19 21:42 Levemir Vial SQ 20 units HS [facility] Administration Mupirocin 1 applic 07/30/19 10:00 08/02/19 09:51 Bactroban Ointment (For Decolonization) - NS 08/04/19 09:59 1 applic BID [facility] Administration Prochlorperazine Edisylate 2.5 mg 07/30/19 09:10 08/01/19 18:15 Compazine Injection - IVPB 2.5 mg Q4H PRN Administration NAUSEA AND/OR VOMITING Simethicone 80 mg 07/31/19 10:16 07/31/19 11:08 Mylicon Liquid - PO 80 mg QID PRN Administration GAS Thiamine HCl 200 mg 07/30/19 10:00 08/02/19 11:14 Vitamin B1 Injection - IVPB 200 mg DAILY [facility] Administration ASSESSMENT/PLAN: Pt is a 54 Y/O M with a significant past medical history of IDDM, hypertension , hyperlipidemia, CAD status post stents, pancreatitis, cholecystitis, gastritis , liver cirrhosis and alcohol abuse who presented to [facility] due to abdominal pain, PO intolerance, and fatigue. #Neurology -> Neurologically intact - AAOX3, no focal neurological deficits. # Cardiology-> CAD s/p Stents/HTN/HLD -EKG: ST rate of 106 bpm, axis nml, intervals abnormal - pr:178ms, QRS:152ms, QTc:523ms, RBBB -c/w home carvedilol 25 BID. - holding statin in light of transaminitis. - Tele monitoring - continue ASA #ENDO-> hyperglycemia 2/2 poor insulin compliance/doubt DKA, most likely 2/2 starvation ketosis from vomiting - pt most likely was not in DKA given hco3>18, pH >7.3, although glucose was elevated >440, acetone was 1+ in urine - starvation ketosis 2/2 vomiting and pt noncompliance to insulin regimen. will continue to advance diet as tolerated. - d/c 20 U Levemir HS. - follow sliding scale #GI-Pancreatitis - initial Lipase >1500, abdominal pain w/ radiation to back. - CT showing inflammatory pancreatitis, no signs of abscess or hemorrhagic necrosis. - Receiving IV fluids 200cc/hr LR. - Compazine for nausea - Simethacone for gas. - Tylenol for pain - GI (Dr. Edmond) doubts biliary origin of disease given lack of peritoneal signs, will await MRCP result, hep panel ordered, will send for c diff if diarrhea persists. #FEN lytes improved after repletion advanced to clear liquid diet. #DVT ppx: HEP SQ TID Dispo: We will be transferring pt out of ICU to floors. Pt has an improved appetite currently awaiting MRCP result. Thank you for this consultative opportunity. Visit type - Emergency Visit Emergency Visit: Yes ED Registration Date: 07/29/19 Care time: The patient presented to the Emergency Department on the above date and was hospitalized for further evaluation of their emergent condition. - New Patient This patient is new to me today: No - Critical Care Critical Care patient: Yes Total Critical Care Time (in minutes): 35 Critical Care Statement: The care of this patient involved high complexity decision making to prevent further life threatening deterioration of the patient 's condition and/or to evaluate & treat vital organ system(s) failure or risk of failure. - Discharge Referral Referred to [facility] No ATTENDING PHYSICIAN STATEMENT I saw and evaluated the patient. I reviewed the resident's note and discussed the case with the resident. I agree with the resident's findings and plan as documented. SUBJECTIVE: OBJECTIVE: ASSESSMENT AND PLAN:
--- NOTE | 2019-08-02 19:37 | PN ---
Teaching Attending Note Name of Resident: Adele Chavez ATTENDING PHYSICIAN STATEMENT I saw and evaluated the patient. I reviewed the resident's note and discussed the case with the resident. I agree with the resident's findings and plan as documented. SUBJECTIVE: Complains of generalized abdominal discomfort. Vomiting resolved. No diarrhea. OBJECTIVE: T max 100.1. Hemodynamically stable. Last Vital Signs Temp Pulse Resp BP Pulse Ox 100 F H 78 16 153/85 98 08/02/19 18:00 08/02/19 18:00 08/02/19 18:00 08/02/19 18:00 08/02/19 07:56 Heart - S1, S2, RRR Lungs - clear to auscultation Abdomen - Distended, high BMI, generalized tenderness. bowel Sounds normal. Extremities - mild edema. no calf tenderness. Neuro - AAO x 3. No tremor. Tone/Power normal all extremities. Laboratory Results - last 24 hr 08/01/19 08/01/19 08/01/19 17:30 21:30 21:32 WBC RBC Hgb Hct MCV MCH MCHC RDW Plt Count MPV Absolute Neuts (auto) Neutrophils % Neutrophils % (Manual) Band Neutrophils % Lymphocytes % Lymphocytes % (Manual) Monocytes % Monocytes % (Manual) Eosinophils % Eosinophils % (Manual) Basophils % Basophils % (Manual) Myelocytes % (Man) Promyelocytes % (Man) Blast Cells % (Manual) Nucleated RBC % Metamyelocytes Hypochromia Toxic Granulation Platelet Estimate Polychromasia Poikilocytosis Anisocytosis Microcytosis Macrocytosis Sodium Cancelled 135 L Potassium Cancelled 3.3 L Chloride Cancelled 98 Carbon Dioxide Cancelled 27 Anion Gap Cancelled 10 BUN Cancelled 6.7 L Creatinine Cancelled 0.6 Est GFR (CKD-EPI)AfAm Cancelled 130.27 Est GFR (CKD-EPI)NonAf Cancelled 112.40 POC Glucometer 196 Random Glucose Cancelled 188 H Calcium Cancelled 7.9 L Phosphorus Cancelled 1.7 L Magnesium Cancelled 1.8 Total Bilirubin Cancelled AST Cancelled ALT Cancelled Alkaline Phosphatase Cancelled Total Protein Cancelled Albumin Cancelled 08/02/19 08/02/19 08/02/19 05:59 06:15 06:15 WBC 11.2 H RBC 4.03 Hgb 13.0 Hct 37.0 MCV 91.9 MCH 32.1 MCHC 35.0 RDW 15.8 Plt Count 306 D MPV 7.4 L Absolute Neuts (auto) 6.8 Neutrophils % 60.5 Neutrophils % (Manual) 61.4 Band Neutrophils % 2.0 Lymphocytes % 14.6 D Lymphocytes % (Manual) 17.8 D Monocytes % 22.7 H D Monocytes % (Manual) 15 H D Eosinophils % 1.7 D Eosinophils % (Manual) 2.0 D Basophils % 0.5 Basophils % (Manual) 0.0 Myelocytes % (Man) 0 Promyelocytes % (Man) 0 Blast Cells % (Manual) 0 Nucleated RBC % 0 Metamyelocytes 1 D Hypochromia 0 Toxic Granulation 0 Platelet Estimate Normal Polychromasia 0 Poikilocytosis 0 Anisocytosis 0 Microcytosis 0 Macrocytosis 0 Sodium 137 Potassium 3.5 Chloride 98 Carbon Dioxide 31 Anion Gap 8 BUN 5.2 L Creatinine 0.5 L Est GFR (CKD-EPI)AfAm 140.40 Est GFR (CKD-EPI)NonAf 121.14 POC Glucometer 79 Random Glucose 77 Calcium 8.0 L Phosphorus 1.5 L Magnesium 1.8 Total Bilirubin 1.8 H AST 59 H ALT 28 Alkaline Phosphatase 79 Total Protein 5.4 L Albumin 2.3 L 08/02/19 08/02/19 11:22 17:28 WBC RBC Hgb Hct MCV MCH MCHC RDW Plt Count MPV Absolute Neuts (auto) Neutrophils % Neutrophils % (Manual) Band Neutrophils % Lymphocytes % Lymphocytes % (Manual) Monocytes % Monocytes % (Manual) Eosinophils % Eosinophils % (Manual) Basophils % Basophils % (Manual) Myelocytes % (Man) Promyelocytes % (Man) Blast Cells % (Manual) Nucleated RBC % Metamyelocytes Hypochromia Toxic Granulation Platelet Estimate Polychromasia Poikilocytosis Anisocytosis Microcytosis Macrocytosis Sodium Potassium Chloride Carbon Dioxide Anion Gap BUN Creatinine Est GFR (CKD-EPI)AfAm Est GFR (CKD-EPI)NonAf POC Glucometer 108 175 Random Glucose Calcium Phosphorus Magnesium Total Bilirubin AST ALT Alkaline Phosphatase Total Protein Albumin Current Medications Generic Name Dose Route Start Last Admin Trade Name Freq PRN Reason Stop Dose Admin Acetaminophen 1,000 mg 08/01/19 11:50 08/01/19 23:38 Ofirmev Injection - IVPB 1,000 mg Q6H PRN Administration FEVER Aspirin 81 mg 07/30/19 10:00 08/02/19 09:43 Ecotrin - PO 81 mg DAILY [facility] Administration Carvedilol 25 mg 07/29/19 22:00 08/02/19 09:43 Coreg - PO 25 mg BID [facility] Administration Chlorhexidine Gluconate 1 applic 07/30/19 22:00 08/01/19 21:57 Hibiclens For Decolonization - TP 1 applic HS [facility] Administration Heparin Sodium (Porcine) 5,000 unit 07/30/19 06:00 08/02/19 14:12 Heparin - SQ 5,000 unit TID [facility] Administration Lactated Ringer's 1,000 ml in 1,000 mls @ 250 mls/hr 08/01/19 11:37 08/02/19 14:08 Lactated Ringers Solution IV Not Given ASDIR [facility] Insulin Aspart 1 vial 07/30/19 07:00 08/02/19 18:06 Novolog Vial Sliding Scale - SQ 2 units ACHS [facility] Administration Protocol Mupirocin 1 applic 07/30/19 10:00 08/02/19 09:51 Bactroban Ointment (For Decolonization) - NS 08/04/19 09:59 1 applic BID [facility] Administration Prochlorperazine Edisylate 2.5 mg 07/30/19 09:10 08/01/19 18:15 Compazine Injection - IVPB 2.5 mg Q4H PRN Administration NAUSEA AND/OR VOMITING Simethicone 80 mg 07/31/19 10:16 07/31/19 11:08 Mylicon Liquid - PO 80 mg QID PRN Administration GAS Thiamine HCl 200 mg 07/30/19 10:00 08/02/19 11:14 Vitamin B1 Injection - IVPB 200 mg DAILY [facility] Administration Home Medications Medication Instructions Recorded Folic Acid - 1 mg PO DAILY #0 tablet 12/19/12 Multivitamins [Multivit ([facility] 1 udtab PO DAILY #0 tab 12/19/12 Formulary)] Tamsulosin HCl 0.4 mg PO DAILY 11/24/15 Carvedilol [Coreg -] 25 mg PO BID #60 tablet 10/25/16 Lancets/Blood Glucose Strips [Fora 1 each AC #90 combo..pkg 05/07/17 [id number] Strp-Lnct] Atorvastatin Ca [Lipitor] 10 mg PO HS 07/24/18 Famotidine [Pepcid] 40 mg PO DAILY 02/16/19 Multivitamin [One-Daily 1 each PO DAILY 02/16/19 Multi-Vitamin] Topiramate [Topamax] 50 mg PO BID 02/16/19 Aspirin Coated [Ecotrin -] 81 mg PO DAILY #30 tablet.ec 02/19/19 Insulin Glargine,Hum.rec.anlog 5 unit SQ AM 30 Days #1 5ml 02/19/19 [Basaglar Kwikpen U-100] ASSESSMENT AND PLAN: 54 year old male with history of DM 2, HTN, Alcohol excess, CAD s/p stents, HLD , presented with anorexia and vomiting, found to have acute pancreatitis. 1. Acute Pancreatitis with SIRS - secondary to alcohol excess. Persisting low grade fevers. CT A/P - consstent with pancreatitis, with no necrosis. Septic Screen negative. Diet advanced to clears. Continue IV fluids GI recommends MRCP 2. DM 2 with Hyperglycemia Resmed on Levemir and novolog sliding scale. 3. Hyponatremia - sec to dehydration - resolved. 4. Hypokalemia - repleted. 5. Hypophosphatemia - repleted. 6. Elevated Transaminases ? sec to Alcoholic hepatitis versus obstruction GI recommneds MRCP. 7. Hx of alcohol Abuse - will monitor for alcohol withdrawal. Ativan PRN. Continue Thiamine/Folate/MVI. 8. BPH - on tamsulosin 9. CAD s/p PCI/Stent - on Aspirin, Coreg. Statin held de to elevated LFTs. DVT Px - Heparin SQ
[2019-08-02] MEDS: CHLORHEXIDINE GLUCONATE 4% CLEANSER FOR DECOLONIZATION TP SCH (21:08)
[2019-08-03] MEDS: LACTATED RINGERS SOLUTION 1,000 ML/1,000 ML INFUS.BAG IV SCH ×4 (03:30→22:33)
[2019-08-03 05:52] LABS: BASO % 0.2 % (0-2.0); EOS % 0.7 % (0-4.5); HEMATOCRIT 35.4 % (35.4-49); HEMOGLOBIN 12.2 GM/dL (11.7-16.9); LYMPH % 11.6 % (8-40); MCH 31.5 pg (25.7-33.7); MCHC 34.4 g/dl (32.0-35.9); MEAN CELL VOLUME 91.7 fl (80-96); MEAN PLT VOLUME 7.4 fl (7.5-11.1); MONO % 18.6 % (3.8-10.2); NEUT % 68.9 % (42.8-82.8); PLATELET COUNT 371 K/MM3 (134-434); RBC 3.86 M/mm3 (4.00-5.60); RDW 15.9 % (11.9-15.9); WHITE BLOOD COUNT 14.9 K/mm3 (4.0-10.0)
[2019-08-03] MEDS: HEPARIN NA (PORCINE) 5,000 UNITS/ML 1ML VIAL SQ SCH ×3 (06:13→21:15)
[2019-08-03] MEDS: INSULIN SLIDING SCALE (NOVOLOG) 1 VIAL SQ SCH ×4 (06:13→21:16)
--- NOTE | 2019-08-03 06:24 | PN ---
Physical Exam: SUBJECTIVE: Patient seen and examined. He reports abdominal pain is resolved. He has continued loose stools overnight. He denies fever and chills. OBJECTIVE: Vital Signs Period Temp Pulse Resp BP Sys/Mccoy Pulse Ox Last 24 Hr 99.7 F-100.1 F 76-98 16-22 132-173/74-95 98-98 GENERAL: Awake, alert, and fully oriented, in no acute distress. HEAD: Normal with no signs of trauma. EYES: Pupils equal, round and reactive to light, extraocular movements intact, sclera icteric, conjunctiva clear. No lid lag. EARS, NOSE, THROAT: Ears normal, nares patent, oropharynx clear without exudates. Moist mucous membranes. NECK: Normal range of motion, supple without lymphadenopathy, JVD, or masses. LUNGS: Breath sounds equal, clear to auscultation bilaterally. No wheezes, and no crackles. No accessory muscle use. HEART: Regular rate and rhythm, normal S1 and S2 without murmur, rub or gallop. ABDOMEN: Distended, nontender, hypoactive bowel sounds, no guarding, no rebound MUSCULOSKELETAL: Normal range of motion at all joints. No bony deformities or tenderness. No CVA tenderness. UPPER EXTREMITIES: 2+ pulses, warm, well-perfused. No cyanosis. No clubbing. No peripheral edema. LOWER EXTREMITIES: 2+ pulses, warm, well-perfused. No calf tenderness. No peripheral edema. NEUROLOGICAL: Cranial nerves II-XII intact. Normal speech. Normal gait. PSYCHIATRIC: Cooperative. Good eye contact. Appropriate mood and affect. SKIN: Warm, dry, normal turgor, no rashes or lesions noted, normal capillary refill. Laboratory Results - last 24 hr 08/02/19 08/02/19 08/02/19 06:15 06:15 11:22 WBC 11.2 H RBC 4.03 Hgb 13.0 Hct 37.0 MCV 91.9 MCH 32.1 MCHC 35.0 RDW 15.8 Plt Count 306 D MPV 7.4 L Absolute Neuts (auto) 6.8 Neutrophils % 60.5 Neutrophils % (Manual) 61.4 Band Neutrophils % 2.0 Lymphocytes % 14.6 D Lymphocytes % (Manual) 17.8 D Monocytes % 22.7 H D Monocytes % (Manual) 15 H D Eosinophils % 1.7 D Eosinophils % (Manual) 2.0 D Basophils % 0.5 Basophils % (Manual) 0.0 Myelocytes % (Man) 0 Promyelocytes % (Man) 0 Blast Cells % (Manual) 0 Nucleated RBC % 0 Metamyelocytes 1 D Hypochromia 0 Toxic Granulation 0 Platelet Estimate Normal Polychromasia 0 Poikilocytosis 0 Anisocytosis 0 Microcytosis 0 Macrocytosis 0 Sodium 137 Potassium 3.5 Chloride 98 Carbon Dioxide 31 Anion Gap 8 BUN 5.2 L Creatinine 0.5 L Est GFR (CKD-EPI)AfAm 140.40 Est GFR (CKD-EPI)NonAf 121.14 POC Glucometer 108 Random Glucose 77 Calcium 8.0 L Phosphorus 1.5 L Magnesium 1.8 Total Bilirubin 1.8 H AST 59 H ALT 28 Alkaline Phosphatase 79 Total Protein 5.4 L Albumin 2.3 L 08/02/19 08/02/19 08/03/19 17:28 21:07 05:25 WBC 14.9 H RBC 3.86 L Hgb 12.2 Hct 35.4 MCV 91.7 MCH 31.5 MCHC 34.4 RDW 15.9 Plt Count 371 D MPV 7.4 L Absolute Neuts (auto) 10.3 H Neutrophils % 68.9 Neutrophils % (Manual) Band Neutrophils % Lymphocytes % 11.6 D Lymphocytes % (Manual) Monocytes % 18.6 H Monocytes % (Manual) Eosinophils % 0.7 Eosinophils % (Manual) Basophils % 0.2 Basophils % (Manual) Myelocytes % (Man) Promyelocytes % (Man) Blast Cells % (Manual) Nucleated RBC % 0 Metamyelocytes Hypochromia Toxic Granulation Platelet Estimate Polychromasia Poikilocytosis Anisocytosis Microcytosis Macrocytosis Sodium Potassium Chloride Carbon Dioxide Anion Gap BUN Creatinine Est GFR (CKD-EPI)AfAm Est GFR (CKD-EPI)NonAf POC Glucometer 175 212 Random Glucose Calcium Phosphorus Magnesium Total Bilirubin AST ALT Alkaline Phosphatase Total Protein Albumin 08/03/19 05:55 WBC RBC Hgb Hct MCV MCH MCHC RDW Plt Count MPV Absolute Neuts (auto) Neutrophils % Neutrophils % (Manual) Band Neutrophils % Lymphocytes % Lymphocytes % (Manual) Monocytes % Monocytes % (Manual) Eosinophils % Eosinophils % (Manual) Basophils % Basophils % (Manual) Myelocytes % (Man) Promyelocytes % (Man) Blast Cells % (Manual) Nucleated RBC % Metamyelocytes Hypochromia Toxic Granulation Platelet Estimate Polychromasia Poikilocytosis Anisocytosis Microcytosis Macrocytosis Sodium Potassium Chloride Carbon Dioxide Anion Gap BUN Creatinine Est GFR (CKD-EPI)AfAm Est GFR (CKD-EPI)NonAf POC Glucometer 182 Random Glucose Calcium Phosphorus Magnesium Total Bilirubin AST ALT Alkaline Phosphatase Total Protein Albumin Active Medications Generic Name Dose Route Start Last Admin Trade Name Freq PRN Reason Stop Dose Admin Acetaminophen 1,000 mg 08/01/19 11:50 08/01/19 23:38 Ofirmev Injection - IVPB 1,000 mg Q6H PRN Administration FEVER Aspirin 81 mg 07/30/19 10:00 08/02/19 09:43 Ecotrin - PO 81 mg DAILY [facility] Administration Carvedilol 25 mg 07/29/19 22:00 08/02/19 21:08 Coreg - PO 25 mg BID [facility] Administration Chlorhexidine Gluconate 1 applic 07/30/19 22:00 08/02/19 21:08 Hibiclens For Decolonization - TP 1 applic HS [facility] Administration Heparin Sodium (Porcine) 5,000 unit 07/30/19 06:00 08/03/19 06:13 Heparin - SQ 5,000 unit TID [facility] Administration Lactated Ringer's 1,000 ml in 1,000 mls @ 250 mls/hr 08/01/19 11:37 08/02/19 14:08 Lactated Ringers Solution IV Not Given ASDIR [facility] Insulin Aspart 1 vial 07/30/19 07:00 08/03/19 06:13 Novolog Vial Sliding Scale - SQ 2 units ACHS [facility] Administration Protocol Mupirocin 1 applic 07/30/19 10:00 08/02/19 21:08 Bactroban Ointment (For Decolonization) - NS 08/04/19 09:59 1 applic BID [facility] Administration Prochlorperazine Edisylate 2.5 mg 07/30/19 09:10 08/01/19 18:15 Compazine Injection - IVPB 2.5 mg Q4H PRN Administration NAUSEA AND/OR VOMITING Simethicone 80 mg 07/31/19 10:16 07/31/19 11:08 Mylicon Liquid - PO 80 mg QID PRN Administration GAS Thiamine HCl 200 mg 07/30/19 10:00 08/02/19 11:14 Vitamin B1 Injection - IVPB 200 mg DAILY [facility] Administration ASSESSMENT/PLAN: Mr. Knowles is a 54 y/o male with IDDM, HTN, HLD, CAD s/p PCI, pancreatitis, cholecystitis, gastritis, liver cirrhosis, and alcohol use disorder who presents with abdominal pain x 10 days. He was found to have BG of 483. #acute pancreatitis 2/2 ETOH use diffuse tenderness on exam continues. CT abdomen negative for necrosis or abscess. total bili 1.7. MRCP confirmed diagnosis of acute pancreatitis. -clear liquids -LR 250mL/hr -CMP #SIRS Afebrile today. blood cultures negative. hold abx -repeat cultures if fever returns -begin ertapenem or meropenem if fever returns #hypokalemia 3.2 -K Phos 15mm x 1 -recheck #hypophosphatemia 2.4 -Kphos 15mm x 1 -recheck #hypomagnesemia 1.8 -monitor #transaminitis, reactive vs ETOH use AST 59-->54. stable. U/S fatty infiltration of liver -monitor #anion gap metabolic acidosis, resolved anion gap closed, initially 21 on presentation with BG 483. Possible DKA component vs ketosis from anorexia #BEVERLY, resolved Cr 0.5. likely pre-renal from dehydration -continue hydration #DM BG 100s. -SSI -BGM #alcohol use disorder Pt has not had drink in 7 days prior to admission. Unlikely to have withdrawal seizure, CIWA ~4 at admission -ativan PRN -supplement thiamine, folate, MV FEN NS monitor K, phos clear liquids DVT Prophylaxis herparin dispo admitted to medicine/ICU Visit type - Emergency Visit Emergency Visit: Yes ED Registration Date: 07/29/19 Care time: The patient presented to the Emergency Department on the above date and was hospitalized for further evaluation of their emergent condition. - New Patient This patient is new to me today: No - Critical Care Critical Care patient: Yes Total Critical Care Time (in minutes): 35 Critical Care Statement: The care of this patient involved high complexity decision making to prevent further life threatening deterioration of the patient 's condition and/or to evaluate & treat vital organ system(s) failure or risk of failure. - Discharge Referral Referred to [facility] Med P.C.: No ATTENDING PHYSICIAN STATEMENT I saw and evaluated the patient. I reviewed the resident's note and discussed the case with the resident. I agree with the resident's findings and plan as documented. SUBJECTIVE: OBJECTIVE: ASSESSMENT AND PLAN:
[2019-08-03 06:25] LABS: ALBUMIN 2.3 g/dl (3.4-5.0); BILIRUBIN,DIRECT 1.1 mg/dL (0.0-0.2); BILIRUBIN,TOTAL 1.8 mg/dL (0.2-1); CALCIUM 7.8 mg/dL (8.5-10.1); CREATININE 0.5 mg/dL (0.55-1.3); MAGNESIUM 1.4 mg/dL (1.8-2.4); PHOSPHOROUS 1.7 mg/dL (2.5-4.9); POTASSIUM 3.2 mmol/L (3.5-5.1); TOT PROT 5.5 g/dl (6.4-8.2)
[2019-08-03] MEDS ORDERED: MAGNESIUM SULF 50% (8.12 MEQ/2 ML-1 GM VIAL) IVPB ONE (06:29)
[2019-08-03] MEDS ORDERED: POTASSIUM PHOSPHATE 15 MM in SODIUM CHLORIDE 250 ML IVPB ONE (07:15)
[2019-08-03] MEDS ORDERED: PT OWN MED DRAWER 7, Y5N ONE (09:38)
[2019-08-03 10:09] LABS: ANISOCYTOSIS 0; MACROCYTOSIS 0; PLATELET ESTIMATE NORMAL
[2019-08-03] MEDS: CARVEDILOL 25 MG TABLET (FP) PO SCH ×2 (10:37→21:15)
[2019-08-03] MEDS: ASPIRIN COATED 81 MG TABLET.EC PO SCH (10:38)
[2019-08-03] MEDS: MUPIROCIN 2% TOPICAL OINTMENT FOR DECOLONIZATION NS SCH ×2 (10:41→21:15)
--- NOTE | 2019-08-03 11:02 | EKG ---
Test Reason : Blood Pressure : / mmHG Vent. Rate : 098 BPM Atrial Rate : 098 BPM P-R Int : 160 ms QRS Dur : 140 ms QT Int : 364 ms P-R-T Axes : 025 -02 007 degrees QTc Int : 464 ms NORMAL SINUS RHYTHM RIGHT BUNDLE BRANCH BLOCK INFERIOR INFARCT (CITED ON OR BEFORE 16-FEB-2019) ABNORMAL ECG WHEN COMPARED WITH ECG OF 29-JUL-2019 15:35, QT HAS SHORTENED Confirmed by GENESIS WHITE, LACIE ([id number]) on 08/03/2019 11:01:59 AM [facility] Confirmed By:LACIE HURTADO MD
--- NOTE | 2019-08-03 11:24 | PN ---
Teaching Attending Note Name of Resident: Dea Salazar ATTENDING PHYSICIAN STATEMENT I saw and evaluated the patient. I reviewed the resident's note and discussed the case with the resident. I agree with the resident's findings and plan as documented. SUBJECTIVE: Pt seen and examined in the ICU. States abdominal pain improving. Febrile overnight. Increased shortness of breath. OBJECTIVE: Vital Signs Period Temp Pulse Resp BP Sys/Mccoy Pulse Ox Last 24 Hr 99.7 F-102 F 76-98 16-22 132-167/74-95 97-98 Intake & Output 07/31/19 08/01/19 08/02/19 08/03/19 23:59 23:59 23:59 23:59 Intake Total 4300 7250 2050 3030 Output Total 2300 3640 1810 1100 Balance 1999 3610 240 1930 Weight 92.079 kg 92.079 kg 98.112 kg 101.831 kg Gen: mildly tachypneic at rest Heart: RRR Lung: decreased breath sounds at the bases Abd: softly distended, nontender Ext: no edema CBC, BMP 08/03/19 05:25 08/03/19 05:25 Active Medications Acetaminophen (Ofirmev Injection -) 1,000 mg IVPB Q6H PRN PRN Reason: FEVER Last Admin: 08/01/19 23:38 Dose: 1,000 mg Aspirin (Ecotrin -) 81 mg PO DAILY [facility] Last Admin: 08/03/19 10:38 Dose: 81 mg Carvedilol (Coreg -) 25 mg PO BID [facility] Last Admin: 08/03/19 10:37 Dose: 25 mg Chlorhexidine Gluconate (Hibiclens For Decolonization -) 1 applic TP HS [facility] Last Admin: 08/02/19 21:08 Dose: 1 applic Heparin Sodium (Porcine) (Heparin -) 5,000 unit SQ TID [facility] Last Admin: 08/03/19 06:13 Dose: 5,000 unit Lactated Ringer's (Lactated Ringers Solution) 1,000 ml in 1,000 mls @ 250 mls/ hr IV ASDIR [facility] Last Admin: 08/03/19 10:47 Dose: 250 mls/hr Insulin Aspart (Novolog Vial Sliding Scale -) 1 vial SQ ACHS [facility]; Protocol Last Admin: 08/03/19 06:13 Dose: 2 units Mupirocin (Bactroban Ointment (For Decolonization) -) 1 applic NS BID [facility] Stop: 08/04/19 09:59 Last Admin: 08/03/19 10:41 Dose: 1 applic Prochlorperazine Edisylate (Compazine Injection -) 2.5 mg IVPB Q4H PRN PRN Reason: NAUSEA AND/OR VOMITING Last Admin: 08/01/19 18:15 Dose: 2.5 mg Simethicone (Mylicon Liquid -) 80 mg PO QID PRN PRN Reason: GAS Last Admin: 07/31/19 11:08 Dose: 80 mg Thiamine HCl (Vitamin B1 Injection -) 200 mg IVPB DAILY [facility] Last Admin: 08/02/19 11:14 Dose: 200 mg ASSESSMENT AND PLAN: Acute Pancreatitis Hyperglycemia Metabolic Acidosis improving Acute Kidney Injury improving Elevated LFTs Alcohol Abuse Liver Cirrhosis CAD Hyperlipidemia HTN DM - f/u MRI abdomen - continue IVF - monitor urine output, creatinine - monitor fever curve, WBC trend - check CXR - pain control - replete lytes - monitor for withdrawal symptoms - DVT prophylaxis - can monitor on floor
--- NOTE | 2019-08-03 12:23 | PN.GI ---
GI Progress Note Subjective: Pt seen/examined at bedside, feeling better overall, denies abdominal pain currently, tolerating clear liquids well. Fever noted overnight. - Objective Vital Signs: Vital Signs Temperature 102 F H 08/03/19 10:00 Pulse Rate 89 08/03/19 12:00 Respiratory Rate 20 08/03/19 12:00 Blood Pressure 131/89 08/03/19 12:00 O2 Sat by Pulse Oximetry (%) 97 08/03/19 07:46 Constitutional: Well Nourished, No Distress Cardiovascular: Yes: WNL, Regular Rate and Rhythm Respiratory: Yes: WNL, Regular, CTA Bilaterally ...Palpate: Yes: Other (Abd soft, nt, nd) Labs: CBC, BMP 08/03/19 05:25 08/03/19 05:25 INR, PTT INR 1.31 (0.83-1.09) H 07/30/19 08:00 Problem List - Problems (1) Pancreatitis, acute Assessment/Plan: 54yo male h/o etoh abuse with acute pancreatitis. MRCP revealing pancreatitis, fatty liver, no biliary or PD dilation. No obvious collections though limited evaluation for necrosis and clinically abdominal pain and exam improved. Fever and leucocytosis noted. No further diarrhea reported. -Continue supportive measures -Advance diet gradually as tolerated (low fat) -Follow up hepatitis serologies. Advised HBV vaccination if non immune. -If further loose stool check C difficile as previously noted. -Follow up results of infectious workup including CXR, cultures per primary team r/o alternate sources. If unrevealing and persistent leucocytosis or fever would recommend repeat contrast enhanced imaging. -Advised strict etoh abstinence Code(s): K85.90 - ACUTE PANCREATITIS WITHOUT NECROSIS OR INFECTION, UNSP Qualifiers: Pancreatitis type: alcohol induced Acute pancreatitis complication: unspecified Qualified Code(s): K85.20 - Alcohol induced acute pancreatitis without necrosis or infection
[2019-08-03 13:21] LABS: BASO % 0.2 % (0-2.0); EOS % 0.5 % (0-4.5); HEMATOCRIT 35.2 % (35.4-49); LYMPH % 11.2 % (8-40); MCH 31.4 pg (25.7-33.7); MCHC 34.1 g/dl (32.0-35.9); MEAN CELL VOLUME 92.2 fl (80-96); MEAN PLT VOLUME 7.3 fl (7.5-11.1); MONO % 17.2 % (3.8-10.2); NEUT % 70.9 % (42.8-82.8); PLATELET COUNT 352 K/MM3 (134-434); RBC 3.81 M/mm3 (4.00-5.60); RDW 16.3 % (11.9-15.9)
[2019-08-03 13:34] LABS: ALBUMIN 2.1 g/dl (3.4-5.0); BILIRUBIN,TOTAL 1.7 mg/dL (0.2-1); BLOOD UREA NITROGEN 3.6 mg/dL (7-18); CALCIUM 7.7 mg/dL (8.5-10.1); CREATININE 0.5 mg/dL (0.55-1.3); MAGNESIUM 1.8 mg/dL (1.8-2.4); PHOSPHOROUS 2.4 mg/dL (2.5-4.9); POTASSIUM 3.2 mmol/L (3.5-5.1); TOT PROT 5.2 g/dl (6.4-8.2)
[2019-08-03] MEDS: THIAMINE HCL 200 MG/2 ML VIAL IVPB SCH (13:52)
[2019-08-03 15:16] LABS: ANISOCYTOSIS 0; MACROCYTOSIS 0; PLATELET ESTIMATE NORMAL
--- NOTE | 2019-08-03 17:31 | PN ---
Physical Exam: SUBJECTIVE: Patient seen and examined at bedside.pt states he is feeling better OBJECTIVE: Vital Signs Period Temp Pulse Resp BP Sys/Mccoy Pulse Ox Last 24 Hr 98.8 F-102 F 78-98 16-22 131-167/74-95 97-98 GENERAL: The patient is awake, alert, and fully oriented, in no acute distress. LUNGS: Breath sounds equal, clear to auscultation bilaterally, no wheezes, no crackles, no accessory muscle use. HEART: Regular rate and rhythm, S1, S2 without murmur, rub or gallop. ABDOMEN: Soft, nontender, nondistended, normoactive bowel sounds, no guarding EXTREMITIES: 2+ pulses, warm, well-perfused, no edema. SKIN: Warm, dry, normal turgor, no rashes or lesions noted Laboratory Last Values WBC 15.0 K/mm3 (4.0-10.0) H 08/03/19 12:45 RBC 3.81 M/mm3 (4.00-5.60) L 08/03/19 12:45 Hgb 12.0 GM/dL (11.7-16.9) 08/03/19 12:45 Hct 35.2 % (35.4-49) L 08/03/19 12:45 MCV 92.2 fl (80-96) 08/03/19 12:45 MCH 31.4 pg (25.7-33.7) 08/03/19 12:45 MCHC 34.1 g/dl (32.0-35.9) 08/03/19 12:45 RDW 16.3 % (11.9-15.9) H 08/03/19 12:45 Plt Count 352 K/MM3 (134-434) 08/03/19 12:45 MPV 7.3 fl (7.5-11.1) L 08/03/19 12:45 Absolute Neuts (auto) 10.6 K/mm3 (1.5-8.0) H 08/03/19 12:45 Neutrophils % 70.9 % (42.8-82.8) 08/03/19 12:45 Neutrophils % (Manual) 72.0 % (42.8-82.8) 08/03/19 12:45 Band Neutrophils % 2.0 % 08/03/19 12:45 Lymphocytes % 11.2 % (8-40) 08/03/19 12:45 Lymphocytes % (Manual) 10.0 % (8-40) 08/03/19 12:45 Monocytes % 17.2 % (3.8-10.2) H 08/03/19 12:45 Monocytes % (Manual) 15 % (3.8-10.2) H 08/03/19 12:45 Eosinophils % 0.5 % (0-4.5) 08/03/19 12:45 Eosinophils % (Manual) 0.0 % (0-4.5) 08/03/19 12:45 Basophils % 0.2 % (0-2.0) 08/03/19 12:45 Basophils % (Manual) 1.0 % (0-2.0) D 08/03/19 12:45 Myelocytes % (Man) 0 % (0-2) 08/03/19 12:45 Promyelocytes % (Man) 0 % (0-2) 08/03/19 12:45 Blast Cells % (Manual) 0 % (0-0) 08/03/19 12:45 Nucleated RBC % 0 % (0-0) 08/03/19 12:45 Metamyelocytes 0 % (0-2) 08/03/19 12:45 Hypochromia 0 08/03/19 12:45 Toxic Granulation 0 08/02/19 06:15 Platelet Estimate Normal 08/03/19 12:45 Polychromasia 0 08/03/19 12:45 Poikilocytosis 0 08/03/19 12:45 Anisocytosis 0 08/03/19 12:45 Microcytosis 0 08/03/19 12:45 Macrocytosis 0 08/03/19 12:45 PT with INR 15.50 SEC (9.7-13.0) H 07/30/19 08:00 INR 1.31 (0.83-1.09) H 07/30/19 08:00 PTT (Actin FS) 35.2 SECONDS (25.2-36.5) 07/30/19 08:00 Anticoagulation Therapy No Result Required. 07/30/19 07:02 Puncture Site Left radial 07/30/19 07:02 ABG pH 7.48 (7.35-7.45) H 07/30/19 07:02 ABG pCO2 at Pt Temp 32.5 mmHg (35-45) L 07/30/19 07:02 ABG pO2 at Pt Temp 72.6 mmHg (80-100) L 07/30/19 07:02 ABG HCO3 24.0 mmol/L (22-27) 07/30/19 07:02 ABG O2 Sat (Measured) 96.3 % (95-98) 07/30/19 07:02 ABG O2 Content 18.3 % vol 07/30/19 07:02 ABG Base Excess 1.5 meq/l (-2-2) 07/30/19 07:02 Min Test Positive 07/30/19 07:02 O2 Delivery Device No Result Required. 07/30/19 07:02 Oxygen Flow Rate No 07/30/19 07:02 Vent Mode No Result Required. 07/30/19 07:02 Vent Rate No Result Required. 07/30/19 07:02 Mechanical Rate No Result Required. 07/30/19 07:02 Pressure Support Vent No Result Required. 07/30/19 07:02 Sodium 134 mmol/L (136-145) L 08/03/19 12:45 Potassium 3.2 mmol/L (3.5-5.1) L 08/03/19 12:45 Chloride 97 mmol/L (98-107) L 08/03/19 12:45 Carbon Dioxide 29 mmol/L (21-32) 08/03/19 12:45 Anion Gap 8 MMOL/L (8-16) 08/03/19 12:45 BUN 3.6 mg/dL (7-18) L 08/03/19 12:45 Creatinine 0.5 mg/dL (0.55-1.3) L 08/03/19 12:45 Est GFR (CKD-EPI)AfAm 140.40 08/03/19 12:45 Est GFR (CKD-EPI)NonAf 121.14 08/03/19 12:45 POC Glucometer 159 UNITS (80-120) 08/03/19 16:46 Random Glucose 178 mg/dL (74-106) H 08/03/19 12:45 Hemoglobin A1c % 7.3 % (4.2-6.3) H 07/30/19 08:00 Lactic Acid 1.5 mmol/L (0.4-2.0) 07/30/19 08:00 Calcium 7.7 mg/dL (8.5-10.1) L 08/03/19 12:45 Phosphorus 2.4 mg/dL (2.5-4.9) L 08/03/19 12:45 Magnesium 1.8 mg/dL (1.8-2.4) 08/03/19 12:45 Total Bilirubin 1.7 mg/dL (0.2-1) H 08/03/19 12:45 Direct Bilirubin 1.1 mg/dL (0.0-0.2) H 08/03/19 05:25 AST 54 U/L (15-37) H 08/03/19 12:45 ALT 27 U/L (13-61) 08/03/19 12:45 Alkaline Phosphatase 98 U/L (45-117) 08/03/19 12:45 Creatine Kinase 144 U/L (26-308) 07/29/19 15:30 Troponin I < 0.02 ng/ml (0.00-0.05) 07/29/19 21:05 Total Protein 5.2 g/dl (6.4-8.2) L 08/03/19 12:45 Albumin 2.1 g/dl (3.4-5.0) L 08/03/19 12:45 Triglycerides 88 mg/dL (0-150) 07/30/19 18:20 Cholesterol 200 mg/dL (50-200) 07/29/19 21:05 Total LDL Cholesterol 125 mg/dL (5-100) H 07/29/19 21:05 HDL Cholesterol 37 mg/dL (40-60) L 07/29/19 21:05 Total Amylase 182 U/L (25-115) H 08/01/19 05:45 Lipase 881 U/L (73-393) H 08/03/19 05:25 Urine Color Yellow 07/30/19 14:00 Urine Appearance Clear 07/30/19 14:00 Urine pH 6.0 (5.0-8.0) 07/30/19 14:00 Ur Specific [place] 1.015 (1.010-1.035) 07/30/19 14:00 Urine Protein 1+ (NEGATIVE) H 07/30/19 14:00 Urine Glucose (UA) Trace (NEGATIVE) 07/30/19 14:00 Urine Ketones 1+ (NEGATIVE) H 07/30/19 14:00 Urine Blood Negative (NEGATIVE) 07/30/19 14:00 Urine Nitrite Negative (NEGATIVE) 07/30/19 14:00 Urine Bilirubin 1+ (NEGATIVE) H 07/30/19 14:00 Urine Urobilinogen 0.2 mg/dL (0.2-1.0) 07/30/19 14:00 Ur Leukocyte Esterase Negative (NEGATIVE) 07/30/19 14:00 Urine WBC (Auto) 2.2 /hpf (0-5) 07/30/19 14:00 Urine RBC (Auto) 1.6 /hpf (0-4) 07/30/19 14:00 Urine Casts (Auto) 15.05 /lpf (0-8) 07/30/19 14:00 U Epithel Cells (Auto) 1.9 /HPF (0-5/HPF) 07/30/19 14:00 Urine Bacteria (Auto) 0.8 /hpf (NEGATIVE) 07/30/19 14:00 Acetone, Qual Positive small 1+ (NEGATIVE) 07/29/19 15:30 Current Medications Acetaminophen (Ofirmev Injection -) 1,000 mg IVPB Q6H PRN PRN Reason: FEVER Last Admin: 08/01/19 23:38 Dose: 1,000 mg Aspirin (Ecotrin -) 81 mg PO DAILY [facility] Last Admin: 08/03/19 10:38 Dose: 81 mg Carvedilol (Coreg -) 25 mg PO BID [facility] Last Admin: 08/03/19 10:37 Dose: 25 mg Chlorhexidine Gluconate (Hibiclens For Decolonization -) 1 applic TP HS [facility] Last Admin: 08/02/19 21:08 Dose: 1 applic Heparin Sodium (Porcine) (Heparin -) 5,000 unit SQ TID [facility] Last Admin: 08/03/19 13:57 Dose: 5,000 unit Lactated Ringer's (Lactated Ringers Solution) 1,000 ml in 1,000 mls @ 250 mls/ hr IV ASDIR [facility] Last Admin: 08/03/19 10:47 Dose: 250 mls/hr Insulin Aspart (Novolog Vial Sliding Scale -) 1 vial SQ ACHS [facility]; Protocol Last Admin: 08/03/19 16:53 Dose: 2 units Mupirocin (Bactroban Ointment (For Decolonization) -) 1 applic NS BID [facility] Stop: 08/04/19 09:59 Last Admin: 08/03/19 10:41 Dose: 1 applic Prochlorperazine Edisylate (Compazine Injection -) 2.5 mg IVPB Q4H PRN PRN Reason: NAUSEA AND/OR VOMITING Last Admin: 08/01/19 18:15 Dose: 2.5 mg Simethicone (Mylicon Liquid -) 80 mg PO QID PRN PRN Reason: GAS Last Admin: 07/31/19 11:08 Dose: 80 mg Thiamine HCl (Vitamin B1 Injection -) 200 mg IVPB DAILY [facility] Last Admin: 08/03/19 13:52 Dose: 200 mg ASSESSMENT/PLAN: 54 yo M with PMH of IDDM, HTN, HLD, CAD (s/p stent), pancreatitis, cholecystitis, gastritis, liver cirrhosis and alcohol abuse who presented to [facility] due to abdominal pain, PO intolerance, and fatigue. Neurology: - AAOX3, no focal neurological deficits. Cardiology: CAD (s/p Stents), HTN,HLD -EKG: ST rate of 106 bpm, axis nml, intervals abnormal - pr:178ms, QRS:152ms, QTc:523ms, RBBB -c/w home carvedilol 25 BID. - holding statin 2/2 transaminitis. - c/w Tele monitoring - c/w ASA ENDO: hyperglycemia 2/2 poor insulin compliance-unlikely DKA - pt most likely was not in DKA given hco3>18, pH >7.3, although glucose was elevated >440, acetone was 1+ in urine - starvation ketosis 2/2 noncompliance to insulin regimen - c/w BGM, sliding scale GI-acute Pancreatitis - initial Lipase >1500, abdominal pain w/ radiation to back. - CT showing inflammatory pancreatitis, no signs of abscess or hemorrhagic necrosis. - c/w IV fluids . - c/w Compazine for nausea -c/w Tylenol for pain or fever - GI (Dr. Gimenez) recs appreciated -pending MRCP -Advance diet gradually as tolerated (low fat) -F/u hepatitis serologies. -Advised strict etoh abstinence F/E/N -contiue to monitor lytes -clear liquid diet. -LR @250 mls/hr DVT ppx: -HEP SQ TID Dispo: transfer to medicine Visit type - Emergency Visit Emergency Visit: No - New Patient This patient is new to me today: Yes Date on this admission: 08/03/19 - Critical Care Critical Care patient: Yes Total Critical Care Time (in minutes): 37 Critical Care Statement: The care of this patient involved high complexity decision making to prevent further life threatening deterioration of the patient 's condition and/or to evaluate & treat vital organ system(s) failure or risk of failure. ATTENDING PHYSICIAN STATEMENT I saw and evaluated the patient. I reviewed the resident's note and discussed the case with the resident. I agree with the resident's findings and plan as documented. SUBJECTIVE: OBJECTIVE: ASSESSMENT AND PLAN:
--- NOTE | 2019-08-03 18:29 | PN ---
Teaching Attending Note Name of Resident: Adele Chavez ATTENDING PHYSICIAN STATEMENT I saw and evaluated the patient. I reviewed the resident's note and discussed the case with the resident. I agree with the resident's findings and plan as documented. SUBJECTIVE: Abdominal pain improving. Fever present. Tolerating clear liquids. OBJECTIVE: Fever Tmax 102. Hemodynamicaly Stable. Last Vital Signs Temp Pulse Resp BP Pulse Ox 98.8 F 68 22 H 156/50 L 97 08/03/19 14:00 08/03/19 16:00 08/03/19 16:00 08/03/19 16:00 08/03/19 07:46 Heart - S1, S2, RRR Lungs - clear to auscultation Abdomen - Distended, high BMI, mild generalized tenderness. Bowel Sounds normal. Extremities - mild edema. no calf tenderness. Neuro - AAO x 3. No tremor. Tone/Power normal all extremities. Laboratory Results - last 24 hr 08/02/19 08/03/19 08/03/19 21:07 05:25 05:25 WBC 14.9 H RBC 3.86 L Hgb 12.2 Hct 35.4 MCV 91.7 MCH 31.5 MCHC 34.4 RDW 15.9 Plt Count 371 D MPV 7.4 L Absolute Neuts (auto) 10.3 H Neutrophils % 68.9 Neutrophils % (Manual) 68.0 Band Neutrophils % 3.1 Lymphocytes % 11.6 D Lymphocytes % (Manual) 9.3 D Monocytes % 18.6 H Monocytes % (Manual) 20 H Eosinophils % 0.7 Eosinophils % (Manual) 0.0 D Basophils % 0.2 Basophils % (Manual) 0.0 Myelocytes % (Man) 0 Promyelocytes % (Man) 0 Blast Cells % (Manual) 0 Nucleated RBC % 0 Metamyelocytes 0 D Hypochromia 0 Platelet Estimate Normal Polychromasia 0 Poikilocytosis 0 Anisocytosis 0 Microcytosis 0 Macrocytosis 0 Sodium 134 L Potassium 3.2 L Chloride 96 L Carbon Dioxide 30 Anion Gap 8 BUN 4.0 L Creatinine 0.5 L Est GFR (CKD-EPI)AfAm 140.40 Est GFR (CKD-EPI)NonAf 121.14 POC Glucometer 212 Random Glucose 156 H Calcium 7.8 L Phosphorus 1.7 L Magnesium 1.4 L Total Bilirubin 1.8 H Direct Bilirubin 1.1 H AST 54 H ALT 27 Alkaline Phosphatase 98 Total Protein 5.5 L Albumin 2.3 L Lipase 881 H 08/03/19 08/03/19 08/03/19 05:55 11:45 12:45 WBC 15.0 H RBC 3.81 L Hgb 12.0 Hct 35.2 L MCV 92.2 MCH 31.4 MCHC 34.1 RDW 16.3 H Plt Count 352 MPV 7.3 L Absolute Neuts (auto) 10.6 H Neutrophils % 70.9 Neutrophils % (Manual) 72.0 Band Neutrophils % 2.0 Lymphocytes % 11.2 Lymphocytes % (Manual) 10.0 Monocytes % 17.2 H Monocytes % (Manual) 15 H Eosinophils % 0.5 Eosinophils % (Manual) 0.0 Basophils % 0.2 Basophils % (Manual) 1.0 D Myelocytes % (Man) 0 Promyelocytes % (Man) 0 Blast Cells % (Manual) 0 Nucleated RBC % 0 Metamyelocytes 0 Hypochromia 0 Platelet Estimate Normal Polychromasia 0 Poikilocytosis 0 Anisocytosis 0 Microcytosis 0 Macrocytosis 0 Sodium Potassium Chloride Carbon Dioxide Anion Gap BUN Creatinine Est GFR (CKD-EPI)AfAm Est GFR (CKD-EPI)NonAf POC Glucometer 182 215 Random Glucose Calcium Phosphorus Magnesium Total Bilirubin Direct Bilirubin AST ALT Alkaline Phosphatase Total Protein Albumin Lipase 08/03/19 08/03/19 12:45 16:46 WBC RBC Hgb Hct MCV MCH MCHC RDW Plt Count MPV Absolute Neuts (auto) Neutrophils % Neutrophils % (Manual) Band Neutrophils % Lymphocytes % Lymphocytes % (Manual) Monocytes % Monocytes % (Manual) Eosinophils % Eosinophils % (Manual) Basophils % Basophils % (Manual) Myelocytes % (Man) Promyelocytes % (Man) Blast Cells % (Manual) Nucleated RBC % Metamyelocytes Hypochromia Platelet Estimate Polychromasia Poikilocytosis Anisocytosis Microcytosis Macrocytosis Sodium 134 L Potassium 3.2 L Chloride 97 L Carbon Dioxide 29 Anion Gap 8 BUN 3.6 L Creatinine 0.5 L Est GFR (CKD-EPI)AfAm 140.40 Est GFR (CKD-EPI)NonAf 121.14 POC Glucometer 159 Random Glucose 178 H Calcium 7.7 L Phosphorus 2.4 L Magnesium 1.8 Total Bilirubin 1.7 H Direct Bilirubin AST 54 H ALT 27 Alkaline Phosphatase 98 Total Protein 5.2 L Albumin 2.1 L Lipase Current Medications Generic Name Dose Route Start Last Admin Trade Name Freq PRN Reason Stop Dose Admin Acetaminophen 1,000 mg 08/01/19 11:50 08/01/19 23:38 Ofirmev Injection - IVPB 1,000 mg Q6H PRN Administration FEVER Aspirin 81 mg 07/30/19 10:00 08/03/19 10:38 Ecotrin - PO 81 mg DAILY [facility] Administration Carvedilol 25 mg 07/29/19 22:00 08/03/19 10:37 Coreg - PO 25 mg BID [facility] Administration Chlorhexidine Gluconate 1 applic 07/30/19 22:00 08/02/19 21:08 Hibiclens For Decolonization - TP 1 applic HS [facility] Administration Heparin Sodium (Porcine) 5,000 unit 07/30/19 06:00 08/03/19 13:57 Heparin - SQ 5,000 unit TID [facility] Administration Lactated Ringer's 1,000 ml in 1,000 mls @ 250 mls/hr 08/01/19 11:37 08/03/19 10:47 Lactated Ringers Solution IV 250 mls/hr ASDIR [facility] Administration Insulin Aspart 1 vial 07/30/19 07:00 08/03/19 16:53 Novolog Vial Sliding Scale - SQ 2 units ACHS [facility] Administration Protocol Mupirocin 1 applic 07/30/19 10:00 08/03/19 10:41 Bactroban Ointment (For Decolonization) - NS 08/04/19 09:59 1 applic BID [facility] Administration Prochlorperazine Edisylate 2.5 mg 07/30/19 09:10 08/01/19 18:15 Compazine Injection - IVPB 2.5 mg Q4H PRN Administration NAUSEA AND/OR VOMITING Simethicone 80 mg 07/31/19 10:16 07/31/19 11:08 Mylicon Liquid - PO 80 mg QID PRN Administration GAS Thiamine HCl 200 mg 07/30/19 10:00 08/03/19 13:52 Vitamin B1 Injection - IVPB 200 mg DAILY [facility] Administration Home Medications Medication Instructions Recorded Folic Acid - 1 mg PO DAILY #0 tablet 12/19/12 Multivitamins [Multivit ([facility] 1 udtab PO DAILY #0 tab 12/19/12 Formulary)] Tamsulosin HCl 0.4 mg PO DAILY 11/24/15 Carvedilol [Coreg -] 25 mg PO BID #60 tablet 10/25/16 Lancets/Blood Glucose Strips [Fora 1 each AC #90 combo..pkg 05/07/17 [id number] Strp-Lnct] Atorvastatin Ca [Lipitor] 10 mg PO HS 07/24/18 Famotidine [Pepcid] 40 mg PO DAILY 02/16/19 Multivitamin [One-Daily 1 each PO DAILY 02/16/19 Multi-Vitamin] Topiramate [Topamax] 50 mg PO BID 02/16/19 Aspirin Coated [Ecotrin -] 81 mg PO DAILY #30 tablet.ec 02/19/19 Insulin Glargine,Hum.rec.anlog 5 unit SQ AM 30 Days #1 5ml 02/19/19 [Basaglar Kwikpen U-100] ASSESSMENT AND PLAN: 54 year old male with history of DM 2, HTN, Alcohol excess, CAD s/p PCI/stents, HLD, presented with epigastric pain, anorexia, and vomiting, found to have acute pancreatitis. 1. Acute Pancreatitis with SIRS - secondary to alcohol excess. Persisting kathleen. CT A/P - consistent with pancreatitis, with no necrosis. Septic Screen negative. Slow Diet advancement Continue IV fluids MRCP - pancreatitis, fatty liver, no biliary or pancreatic ductal dilation GI following. If further fevers, will repeat CT with contrast and septic work-up. 2. DM 2 with Hyperglycemia Continue Levemir and novolog sliding scale. 3. Hyponatremia - sec to dehydration - resolved. 4. Hypokalemia - will replete. 5. Hypophosphatemia - will replete 6. Elevated Transaminases sec to Alcoholic hepatitis - improving. MRCP shows no obstruction. 7. Hx of alcohol Abuse - will monitor for alcohol withdrawal. Ativan PRN. Continue Thiamine/Folate/MVI. 8. BPH - on Tamsulosin 9. CAD s/p PCI/Stent - on Aspirin, Coreg. Statin held due to elevated LFTs. 10. BEVERLY - improved with IV fluids. DVT Px - Heparin SQ
[2019-08-03] MEDS: CHLORHEXIDINE GLUCONATE 4% CLEANSER FOR DECOLONIZATION TP SCH (21:15)
[2019-08-03] MEDS: PROCHLORPERAZINE INJECTION 10 MG/2 ML VIAL IVPB PRN (22:21)
[2019-08-03] MEDS: ACETAMINOPHEN 1000 MG/100 ML VIAL (NON FORMULARY) IVPB PRN (22:24)
[2019-08-04] MEDS: LACTATED RINGERS SOLUTION 1,000 ML/1,000 ML INFUS.BAG IV SCH ×5 (03:28→22:01)
[2019-08-04] MEDS: HEPARIN NA (PORCINE) 5,000 UNITS/ML 1ML VIAL SQ SCH ×3 (05:33→21:49)
[2019-08-04] MEDS: INSULIN SLIDING SCALE (NOVOLOG) 1 VIAL SQ SCH ×4 (06:12→21:55)
--- NOTE | 2019-08-04 07:21 | PN ---
Physical Exam: SUBJECTIVE: Patient seen and examined. He reports abdominal pain is improved. No BMs overnight. OBJECTIVE: Vital Signs Period Temp Pulse Resp BP Sys/Mccoy Pulse Ox Last 24 Hr 98.6 F-102 F 68-93 20-22 131-163/50-91 97-99 GENERAL: Awake, alert, and fully oriented, in no acute distress. HEAD: Normal with no signs of trauma. EYES: Pupils equal, round and reactive to light, extraocular movements intact, conjunctiva clear. No lid lag. EARS, NOSE, THROAT: Ears normal, nares patent, oropharynx clear without exudates. Moist mucous membranes. NECK: Normal range of motion, supple without lymphadenopathy, JVD, or masses. LUNGS: Breath sounds equal, clear to auscultation bilaterally. No wheezes, and no crackles. No accessory muscle use. HEART: Regular rate and rhythm, normal S1 and S2 without murmur, rub or gallop. ABDOMEN: Distended, nontender, hypoactive bowel sounds, no guarding, no rebound MUSCULOSKELETAL: Normal range of motion at all joints. No bony deformities or tenderness. No CVA tenderness. UPPER EXTREMITIES: 2+ pulses, warm, well-perfused. No cyanosis. No clubbing. No peripheral edema. LOWER EXTREMITIES: 2+ pulses, warm, well-perfused. No calf tenderness. No peripheral edema. NEUROLOGICAL: Cranial nerves II-XII intact. Normal speech. Normal gait. PSYCHIATRIC: Cooperative. Good eye contact. Appropriate mood and affect. SKIN: Warm, dry, normal turgor, no rashes or lesions noted, normal capillary refill. Laboratory Results - last 24 hr 08/03/19 08/03/19 08/03/19 05:25 05:25 05:25 WBC RBC Hgb Hct MCV MCH MCHC RDW Plt Count MPV Absolute Neuts (auto) Neutrophils % Neutrophils % (Manual) 68.0 Band Neutrophils % 3.1 Lymphocytes % Lymphocytes % (Manual) 9.3 D Monocytes % Monocytes % (Manual) 20 H Eosinophils % Eosinophils % (Manual) 0.0 D Basophils % Basophils % (Manual) 0.0 Myelocytes % (Man) 0 Promyelocytes % (Man) 0 Blast Cells % (Manual) 0 Nucleated RBC % Metamyelocytes 0 D Hypochromia 0 Platelet Estimate Normal Polychromasia 0 Poikilocytosis 0 Anisocytosis 0 Microcytosis 0 Macrocytosis 0 Sodium Potassium Chloride Carbon Dioxide Anion Gap BUN Creatinine Est GFR (CKD-EPI)AfAm Est GFR (CKD-EPI)NonAf POC Glucometer Random Glucose Calcium Phosphorus Magnesium Total Bilirubin AST ALT Alkaline Phosphatase Total Protein Albumin Hep B Core IgM Ab Negative Hepatitis Be Antigen Negative 08/03/19 08/03/19 08/03/19 11:45 12:45 12:45 WBC 15.0 H RBC 3.81 L Hgb 12.0 Hct 35.2 L MCV 92.2 MCH 31.4 MCHC 34.1 RDW 16.3 H Plt Count 352 MPV 7.3 L Absolute Neuts (auto) 10.6 H Neutrophils % 70.9 Neutrophils % (Manual) 72.0 Band Neutrophils % 2.0 Lymphocytes % 11.2 Lymphocytes % (Manual) 10.0 Monocytes % 17.2 H Monocytes % (Manual) 15 H Eosinophils % 0.5 Eosinophils % (Manual) 0.0 Basophils % 0.2 Basophils % (Manual) 1.0 D Myelocytes % (Man) 0 Promyelocytes % (Man) 0 Blast Cells % (Manual) 0 Nucleated RBC % 0 Metamyelocytes 0 Hypochromia 0 Platelet Estimate Normal Polychromasia 0 Poikilocytosis 0 Anisocytosis 0 Microcytosis 0 Macrocytosis 0 Sodium 134 L Potassium 3.2 L Chloride 97 L Carbon Dioxide 29 Anion Gap 8 BUN 3.6 L Creatinine 0.5 L Est GFR (CKD-EPI)AfAm 140.40 Est GFR (CKD-EPI)NonAf 121.14 POC Glucometer 215 Random Glucose 178 H Calcium 7.7 L Phosphorus 2.4 L Magnesium 1.8 Total Bilirubin 1.7 H AST 54 H ALT 27 Alkaline Phosphatase 98 Total Protein 5.2 L Albumin 2.1 L Hep B Core IgM Ab Hepatitis Be Antigen 08/03/19 08/03/19 08/04/19 16:46 21:09 00:08 WBC RBC Hgb Hct MCV MCH MCHC RDW Plt Count MPV Absolute Neuts (auto) Neutrophils % Neutrophils % (Manual) Band Neutrophils % Lymphocytes % Lymphocytes % (Manual) Monocytes % Monocytes % (Manual) Eosinophils % Eosinophils % (Manual) Basophils % Basophils % (Manual) Myelocytes % (Man) Promyelocytes % (Man) Blast Cells % (Manual) Nucleated RBC % Metamyelocytes Hypochromia Platelet Estimate Polychromasia Poikilocytosis Anisocytosis Microcytosis Macrocytosis Sodium Potassium Chloride Carbon Dioxide Anion Gap BUN Creatinine Est GFR (CKD-EPI)AfAm Est GFR (CKD-EPI)NonAf POC Glucometer 159 195 135 Random Glucose Calcium Phosphorus Magnesium Total Bilirubin AST ALT Alkaline Phosphatase Total Protein Albumin Hep B Core IgM Ab Hepatitis Be Antigen 08/04/19 06:07 WBC RBC Hgb Hct MCV MCH MCHC RDW Plt Count MPV Absolute Neuts (auto) Neutrophils % Neutrophils % (Manual) Band Neutrophils % Lymphocytes % Lymphocytes % (Manual) Monocytes % Monocytes % (Manual) Eosinophils % Eosinophils % (Manual) Basophils % Basophils % (Manual) Myelocytes % (Man) Promyelocytes % (Man) Blast Cells % (Manual) Nucleated RBC % Metamyelocytes Hypochromia Platelet Estimate Polychromasia Poikilocytosis Anisocytosis Microcytosis Macrocytosis Sodium Potassium Chloride Carbon Dioxide Anion Gap BUN Creatinine Est GFR (CKD-EPI)AfAm Est GFR (CKD-EPI)NonAf POC Glucometer 160 Random Glucose Calcium Phosphorus Magnesium Total Bilirubin AST ALT Alkaline Phosphatase Total Protein Albumin Hep B Core IgM Ab Hepatitis Be Antigen Active Medications Generic Name Dose Route Start Last Admin Trade Name Freq PRN Reason Stop Dose Admin Acetaminophen 1,000 mg 08/01/19 11:50 08/03/19 22:24 Ofirmev Injection - IVPB 1,000 mg Q6H PRN Administration FEVER Aspirin 81 mg 07/30/19 10:00 08/03/19 10:38 Ecotrin - PO 81 mg DAILY [facility] Administration Carvedilol 25 mg 07/29/19 22:00 08/03/19 21:15 Coreg - PO 25 mg BID [facility] Administration Chlorhexidine Gluconate 1 applic 07/30/19 22:00 08/03/19 21:15 Hibiclens For Decolonization - TP 1 applic HS [facility] Administration Heparin Sodium (Porcine) 5,000 unit 07/30/19 06:00 08/04/19 05:33 Heparin - SQ 5,000 unit TID [facility] Administration Lactated Ringer's 1,000 ml in 1,000 mls @ 250 mls/hr 08/01/19 11:37 08/04/19 06:14 Lactated Ringers Solution IV 250 mls/hr ASDIR [facility] Administration Insulin Aspart 1 vial 07/30/19 07:00 08/04/19 06:12 Novolog Vial Sliding Scale - SQ 2 units ACHS [facility] Administration Protocol Mupirocin 1 applic 07/30/19 10:00 08/03/19 21:15 Bactroban Ointment (For Decolonization) - NS 08/04/19 09:59 1 applic BID [facility] Administration Prochlorperazine Edisylate 2.5 mg 07/30/19 09:10 08/03/19 22:21 Compazine Injection - IVPB 2.5 mg Q4H PRN Administration NAUSEA AND/OR VOMITING Simethicone 80 mg 07/31/19 10:16 07/31/19 11:08 Mylicon Liquid - PO 80 mg QID PRN Administration GAS Thiamine HCl 200 mg 07/30/19 10:00 08/03/19 13:52 Vitamin B1 Injection - IVPB 200 mg DAILY [facility] Administration ASSESSMENT/PLAN: Mr. Knowles is a 54 y/o male with IDDM, HTN, HLD, CAD s/p PCI, pancreatitis, cholecystitis, gastritis, liver cirrhosis, and alcohol use disorder who presents with abdominal pain x 10 days. He was found to have BG of 483. #acute pancreatitis 2/2 ETOH use Pt not tender on exam today. CT abdomen did not show necrosis or abscess. total bili 1.7-->1.4. MRCP confirmed diagnosis of acute pancreatitis. Tmax 101 overnight. WBC 16.1. -CT abdomen with pancreatitis protocol to determine if there is necrosis or abscess -clear liquids -LR 250mL/hr -CMP #SIRS Tmax 101 overnight. WBC 16.1 -repeat blood cultures -begin ertapenem or meropenem if fever returns #hypokalemia 3.4 -K Phos 15mm x 1 -recheck #hypophosphatemia 2.4 -Kphos 15mm x 1 -recheck #hypomagnesemia 1.7 -Mg 2gm #transaminitis, reactive vs ETOH use AST 54-->46. U/S fatty infiltration of liver -monitor #anion gap metabolic acidosis, resolved anion gap closed, initially 21 on presentation with BG 483. Possible DKA component vs ketosis from anorexia #BEVERLY, resolved Cr 0.5. likely pre-renal from dehydration -continue hydration #DM 100s today -SSI -BGM #alcohol use disorder Pt has not had drink in 7 days prior to admission. Unlikely to have withdrawal seizure, CIWA ~4 at admission -ativan PRN -supplement thiamine, folate, MV FEN NS monitor K, phos, Mg clear liquids DVT Prophylaxis herparin dispo med/surg floor Will call PCP tomorrow to confirm medications. Visit type - Emergency Visit Emergency Visit: Yes ED Registration Date: 07/29/19 Care time: The patient presented to the Emergency Department on the above date and was hospitalized for further evaluation of their emergent condition. - New Patient This patient is new to me today: No - Critical Care Critical Care patient: No - Discharge Referral Referred to [facility] Med [facility] No ATTENDING PHYSICIAN STATEMENT I saw and evaluated the patient. I reviewed the resident's note and discussed the case with the resident. I agree with the resident's findings and plan as documented. SUBJECTIVE: OBJECTIVE: ASSESSMENT AND PLAN:
[2019-08-04 08:13] LABS: BASO % 0.5 % (0-2.0); EOS % 0.5 % (0-4.5); HEMATOCRIT 33.3 % (35.4-49); HEMOGLOBIN 11.5 GM/dL (11.7-16.9); LYMPH % 10.6 % (8-40); MCH 31.4 pg (25.7-33.7); MCHC 34.4 g/dl (32.0-35.9); MEAN CELL VOLUME 91.2 fl (80-96); MEAN PLT VOLUME 7.6 fl (7.5-11.1); MONO % 12.6 % (3.8-10.2); NEUT % 75.8 % (42.8-82.8); PLATELET COUNT 423 K/MM3 (134-434); RBC 3.65 M/mm3 (4.00-5.60); RDW 16.1 % (11.9-15.9); WHITE BLOOD COUNT 16.1 K/mm3 (4.0-10.0)
[2019-08-04 08:33] LABS: ALBUMIN 2.1 g/dl (3.4-5.0); BILIRUBIN,TOTAL 1.4 mg/dL (0.2-1); BLOOD UREA NITROGEN 3.7 mg/dL (7-18); CALCIUM 7.7 mg/dL (8.5-10.1); CREATININE 0.4 mg/dL (0.55-1.3); MAGNESIUM 1.7 mg/dL (1.8-2.4); PHOSPHOROUS 2.4 mg/dL (2.5-4.9); POTASSIUM 3.4 mmol/L (3.5-5.1); TOT PROT 5.3 g/dl (6.4-8.2)
[2019-08-04] MEDS: ASPIRIN COATED 81 MG TABLET.EC PO SCH (09:55)
[2019-08-04] MEDS: THIAMINE HCL 200 MG/2 ML VIAL IVPB SCH (09:55)
[2019-08-04] MEDS: CARVEDILOL 25 MG TABLET (FP) PO SCH ×2 (09:55→21:49)
[2019-08-04] MEDS: PROCHLORPERAZINE INJECTION 10 MG/2 ML VIAL IVPB PRN (09:55)
[2019-08-04] MEDS ORDERED: POTASSIUM PHOSPHATE 15 MM in SODIUM CHLORIDE 250 ML IVPB ONE ×2 (10:26→13:00)
[2019-08-04] MEDS ORDERED: MAGNESIUM SULF 50% (8.12 MEQ/2 ML-1 GM VIAL) IVPB ONE (10:27)
--- NOTE | 2019-08-04 10:45 | PN ---
Progress Note (short form) - Note Progress Note: PULMONARY Still some shortness of breath. Denies abdominal pain. Febrile overnight to 101. Tolerating liquids. Vital Signs Period Temp Pulse Resp BP Sys/Mccoy Pulse Ox Last 24 Hr 98.6 F-101.0 F 68-93 20-22 131-163/50-91 99 Intake & Output 08/01/19 08/02/19 08/03/19 08/04/19 23:59 23:59 23:59 23:59 Intake Total 7250 2050 5790 2250 Output Total 3640 1810 2200 900 Balance 3610 240 3590 1350 Weight 92.079 kg 98.112 kg 101.831 kg 100.607 kg Gen: mildly tachypneic at rest Heart: RRR Lung: decreased breath sounds at the bases Abd: softly distended, nontender Ext: no edema CBC, BMP 08/04/19 06:30 08/04/19 06:30 Hepatic Panel Total Bilirubin 1.4 mg/dL (0.2-1) H 08/04/19 06:30 Direct Bilirubin 1.1 mg/dL (0.0-0.2) H 08/03/19 05:25 AST 46 U/L (15-37) H 08/04/19 06:30 ALT 25 U/L (13-61) 08/04/19 06:30 Alkaline Phosphatase 100 U/L (45-117) 08/04/19 06:30 Albumin 2.1 g/dl (3.4-5.0) L 08/04/19 06:30 Active Medications Aspirin (Ecotrin -) 81 mg PO DAILY [facility] Last Admin: 08/04/19 09:55 Dose: 81 mg Carvedilol (Coreg -) 25 mg PO BID [facility] Last Admin: 08/04/19 09:55 Dose: 25 mg Chlorhexidine Gluconate (Hibiclens For Decolonization -) 1 applic TP HS [facility] Last Admin: 08/03/19 21:15 Dose: 1 applic Heparin Sodium (Porcine) (Heparin -) 5,000 unit SQ TID [facility] Last Admin: 08/04/19 05:33 Dose: 5,000 unit Lactated Ringer's (Lactated Ringers Solution) 1,000 ml in 1,000 mls @ 250 mls/ hr IV ASDIR [facility] Last Admin: 08/04/19 06:14 Dose: 250 mls/hr Insulin Aspart (Novolog Vial Sliding Scale -) 1 vial SQ ACHS [facility]; Protocol Last Admin: 08/04/19 06:12 Dose: 2 units Prochlorperazine Edisylate (Compazine Injection -) 2.5 mg IVPB Q4H PRN PRN Reason: NAUSEA AND/OR VOMITING Last Admin: 08/04/19 09:55 Dose: 2.5 mg Simethicone (Mylicon Liquid -) 80 mg PO QID PRN PRN Reason: GAS Last Admin: 07/31/19 11:08 Dose: 80 mg Thiamine HCl (Vitamin B1 Injection -) 200 mg IVPB DAILY [facility] Last Admin: 08/04/19 09:55 Dose: 200 mg A/P Acute Pancreatitis Hyperglycemia Metabolic Acidosis improving Acute Kidney Injury improving Elevated LFTs Alcohol Abuse Liver Cirrhosis CAD Hyperlipidemia HTN DM Volume Overload - monitor urine output, creatinine - monitor fever curve, WBC trend - repeat abdominal imaging per GI - will likely need diuresis when pancreatitis resolving - pain control - replete lytes - monitor for withdrawal symptoms - DVT prophylaxis
--- NOTE | 2019-08-04 13:39 | PN.GI ---
GI Progress Note Subjective: No acute events States feeling well, subsiding abdominal pain No keshia diarrhea Temp 100.3 today, 101 overnight - Objective Vital Signs: Vital Signs Temperature 99.3 F 08/04/19 08:00 Pulse Rate 63 08/04/19 08:00 Respiratory Rate 20 08/04/19 09:00 Blood Pressure 151/87 08/04/19 08:00 O2 Sat by Pulse Oximetry (%) 99 08/04/19 09:00 Constitutional: Calm Eyes: No: Sclera Icterus Cardiovascular: Yes: Regular Rate and Rhythm Respiratory: Yes: CTA Bilaterally Gastrointestinal Inspection: No: Distention ...Auscultate: Yes: Normoactive Bowel Sounds ...Palpate: Yes: Soft, Tenderness (Mild TTP mid left abdomen). No: Guarding Edema: LLE: Trace, RLE: Trace Neurological: Yes: Alert Labs: CBC, BMP 08/04/19 06:30 08/04/19 06:30 INR, PTT INR 1.31 (0.83-1.09) H 07/30/19 08:00 Hepatic Panel Total Bilirubin 1.4 mg/dL (0.2-1) H 08/04/19 06:30 Direct Bilirubin 1.1 mg/dL (0.0-0.2) H 08/03/19 05:25 AST 46 U/L (15-37) H 08/04/19 06:30 ALT 25 U/L (13-61) 08/04/19 06:30 Alkaline Phosphatase 100 U/L (45-117) 08/04/19 06:30 Albumin 2.1 g/dl (3.4-5.0) L 08/04/19 06:30 Problem List - Problems (1) Pancreatitis, alcoholic, acute Assessment/Plan: Clinically appears much improved and states feeling better. WBC continues to rise. if no other clear source of infection and fevers persist, then repeat CT scan of the abdomen with pancreatic protocol to evaluate for further early complications of his pancreatitis (necrosis, development of acute necrotic collection / acute fluid collection). On full liquids Cut down IV hydration to 150cc/hr Code(s): K85.20 - ALCOHOL INDUCED ACUTE PANCREATITIS WITHOUT NECROSIS OR INFCT
--- NOTE | 2019-08-04 15:20 | PN ---
Teaching Attending Note Name of Resident: Adele Chavez ATTENDING PHYSICIAN STATEMENT I saw and evaluated the patient. I reviewed the resident's note and discussed the case with the resident. I agree with the resident's findings and plan as documented. SUBJECTIVE: Abdominal pain improving. Fever present. Tolerating clear liquids. OBJECTIVE: Fever Tmax 101 overnight. Hemodynamicaly Stable. Last Vital Signs Temp Pulse Resp BP Pulse Ox 100.3 F H 94 H 20 117/82 99 08/04/19 13:39 08/04/19 13:39 08/04/19 13:39 08/04/19 13:39 08/04/19 09:00 Heart - S1, S2, RRR Lungs - decreased air entry at bases Abdomen - Distended, high BMI, mild generalized tenderness improved. Bowel Sounds normal. Extremities - Edema+. no calf tenderness. Neuro - AAO x 3. No tremor. Tone/Power normal all extremities. Laboratory Results - last 24 hr 08/03/19 08/03/19 08/03/19 05:25 05:25 12:45 WBC RBC Hgb Hct MCV MCH MCHC RDW Plt Count MPV Absolute Neuts (auto) Neutrophils % Neutrophils % (Manual) 72.0 Band Neutrophils % 2.0 Lymphocytes % Lymphocytes % (Manual) 10.0 Monocytes % Monocytes % (Manual) 15 H Eosinophils % Eosinophils % (Manual) 0.0 Basophils % Basophils % (Manual) 1.0 D Myelocytes % (Man) 0 Promyelocytes % (Man) 0 Blast Cells % (Manual) 0 Nucleated RBC % Metamyelocytes 0 Hypochromia 0 Platelet Estimate Normal Polychromasia 0 Poikilocytosis 0 Anisocytosis 0 Microcytosis 0 Macrocytosis 0 Sodium Potassium Chloride Carbon Dioxide Anion Gap BUN Creatinine Est GFR (CKD-EPI)AfAm Est GFR (CKD-EPI)NonAf POC Glucometer Random Glucose Calcium Phosphorus Magnesium Total Bilirubin AST ALT Alkaline Phosphatase Total Protein Albumin Hep B Core IgM Ab Negative Hepatitis Be Antigen Negative 08/03/19 08/03/19 08/04/19 16:46 21:09 00:08 WBC RBC Hgb Hct MCV MCH MCHC RDW Plt Count MPV Absolute Neuts (auto) Neutrophils % Neutrophils % (Manual) Band Neutrophils % Lymphocytes % Lymphocytes % (Manual) Monocytes % Monocytes % (Manual) Eosinophils % Eosinophils % (Manual) Basophils % Basophils % (Manual) Myelocytes % (Man) Promyelocytes % (Man) Blast Cells % (Manual) Nucleated RBC % Metamyelocytes Hypochromia Platelet Estimate Polychromasia Poikilocytosis Anisocytosis Microcytosis Macrocytosis Sodium Potassium Chloride Carbon Dioxide Anion Gap BUN Creatinine Est GFR (CKD-EPI)AfAm Est GFR (CKD-EPI)NonAf POC Glucometer 159 195 135 Random Glucose Calcium Phosphorus Magnesium Total Bilirubin AST ALT Alkaline Phosphatase Total Protein Albumin Hep B Core IgM Ab Hepatitis Be Antigen 08/04/19 08/04/19 08/04/19 06:07 06:30 06:30 WBC 16.1 H RBC 3.65 L Hgb 11.5 L Hct 33.3 L MCV 91.2 MCH 31.4 MCHC 34.4 RDW 16.1 H Plt Count 423 D MPV 7.6 Absolute Neuts (auto) 12.2 H Neutrophils % 75.8 Neutrophils % (Manual) Band Neutrophils % Lymphocytes % 10.6 Lymphocytes % (Manual) Monocytes % 12.6 H Monocytes % (Manual) Eosinophils % 0.5 Eosinophils % (Manual) Basophils % 0.5 Basophils % (Manual) Myelocytes % (Man) Promyelocytes % (Man) Blast Cells % (Manual) Nucleated RBC % 0 Metamyelocytes Hypochromia Platelet Estimate Polychromasia Poikilocytosis Anisocytosis Microcytosis Macrocytosis Sodium 137 Potassium 3.4 L Chloride 98 Carbon Dioxide 31 Anion Gap 8 BUN 3.7 L Creatinine 0.4 L Est GFR (CKD-EPI)AfAm 153.89 Est GFR (CKD-EPI)NonAf 132.78 POC Glucometer 160 Random Glucose 134 H Calcium 7.7 L Phosphorus 2.4 L Magnesium 1.7 L Total Bilirubin 1.4 H AST 46 H ALT 25 Alkaline Phosphatase 100 Total Protein 5.3 L Albumin 2.1 L Hep B Core IgM Ab Hepatitis Be Antigen 08/04/19 12:03 WBC RBC Hgb Hct MCV MCH MCHC RDW Plt Count MPV Absolute Neuts (auto) Neutrophils % Neutrophils % (Manual) Band Neutrophils % Lymphocytes % Lymphocytes % (Manual) Monocytes % Monocytes % (Manual) Eosinophils % Eosinophils % (Manual) Basophils % Basophils % (Manual) Myelocytes % (Man) Promyelocytes % (Man) Blast Cells % (Manual) Nucleated RBC % Metamyelocytes Hypochromia Platelet Estimate Polychromasia Poikilocytosis Anisocytosis Microcytosis Macrocytosis Sodium Potassium Chloride Carbon Dioxide Anion Gap BUN Creatinine Est GFR (CKD-EPI)AfAm Est GFR (CKD-EPI)NonAf POC Glucometer 209 Random Glucose Calcium Phosphorus Magnesium Total Bilirubin AST ALT Alkaline Phosphatase Total Protein Albumin Hep B Core IgM Ab Hepatitis Be Antigen Current Medications Generic Name Dose Route Start Last Admin Trade Name Freq PRN Reason Stop Dose Admin Acetaminophen 650 mg 08/04/19 13:17 Tylenol - PO Q6H PRN PAIN LEVEL 1-5 Aspirin 81 mg 07/30/19 10:00 08/04/19 09:55 Ecotrin - PO 81 mg DAILY SIERRA Administration Carvedilol 25 mg 07/29/19 22:00 08/04/19 09:55 Coreg - PO 25 mg BID SIERRA Administration Chlorhexidine Gluconate 1 applic 07/30/19 22:00 08/03/19 21:15 Hibiclens For Decolonization - TP 1 applic HS SIERRA Administration Heparin Sodium (Porcine) 5,000 unit 07/30/19 06:00 08/04/19 13:38 Heparin - SQ 5,000 unit TID SIERRA Administration Potassium Phosphate 15 mm/ 255 mls @ 42.5 mls/hr 08/04/19 13:00 08/04/19 13: 26 Sodium Chloride IVPB 08/04/19 18:59 42.5 mls/hr ONCE ONE Administration Lactated Ringer's 1,000 ml in 1,000 mls @ 150 mls/hr 08/04/19 13:40 Lactated Ringers Solution IV ASDIR SIERRA Insulin Aspart 1 vial 07/30/19 07:00 08/04/19 12:25 Novolog Vial Sliding Scale - SQ 4 units ACHS SIERRA Administration Protocol Prochlorperazine Edisylate 2.5 mg 07/30/19 09:10 08/04/19 09:55 Compazine Injection - IVPB 2.5 mg Q4H PRN Administration NAUSEA AND/OR VOMITING Simethicone 80 mg 07/31/19 10:16 07/31/19 11:08 Mylicon Liquid - PO 80 mg QID PRN Administration GAS Thiamine HCl 200 mg 07/30/19 10:00 08/04/19 09:55 Vitamin B1 Injection - IVPB 200 mg DAILY SIERRA Administration Home Medications Medication Instructions Recorded Folic Acid - 1 mg PO DAILY #0 tablet 12/19/12 Multivitamins [Multivit ([facility] 1 udtab PO DAILY #0 tab 12/19/12 Formulary)] Tamsulosin HCl 0.4 mg PO DAILY 11/24/15 Carvedilol [Coreg -] 25 mg PO BID #60 tablet 10/25/16 Lancets/Blood Glucose Strips [Fora 1 each AC #90 combo..pkg 05/07/17 [id number] Strp-Lnct] Atorvastatin Ca [Lipitor] 10 mg PO HS 07/24/18 Famotidine [Pepcid] 40 mg PO DAILY 02/16/19 Multivitamin [One-Daily 1 each PO DAILY 02/16/19 Multi-Vitamin] Topiramate [Topamax] 50 mg PO BID 02/16/19 Aspirin Coated [Ecotrin -] 81 mg PO DAILY #30 tablet.ec 02/19/19 Insulin Glargine,Hum.rec.anlog 5 unit SQ AM 30 Days #1 5ml 02/19/19 [Basaglar Kwikpen U-100] ASSESSMENT AND PLAN: 54 year old male with history of DM 2, HTN, Alcohol excess, CAD s/p PCI/stents, HLD, presented with epigastric pain, anorexia, and vomiting, found to have acute pancreatitis. 1. Acute Pancreatitis with SIRS - secondary to alcohol excess. Persisting fevers. Worsening leukocytosis. CT A/P - consistent with pancreatitis. Will repeat CT with Pancreatic protocol to ensure no development of abscess/necrosis. MRCP (without contrast) - Pancreatitis, fatty liver, no biliary or pancreatic ductal dilation Initial Septic Screen negative. Will repeat Blood Cx. On full liquid diet. Continue IV fluids - rate reduced due to some evidence of fluid sequestration GI following. 2. DM 2 with Hyperglycemia Continue Levemir and novolog sliding scale. 3. Hyponatremia - sec to dehydration - resolved. 4. Hypokalemia/hypophosphatemia - will replete. 5. Hypophosphatemia - will replete 6. Elevated Transaminases sec to Alcoholic hepatitis - improving. MRCP shows no biliary obstruction. 7. Hx of alcohol Abuse - will monitor for alcohol withdrawal. Ativan PRN. Continue Thiamine/Folate/MVI. 8. BPH - resumed on Tamsulosin 9. CAD s/p PCI/Stent - on Aspirin, Coreg. Statin held due to elevated LFTs. 10. BEVERLY - resolved with IV fluids. 11. On Topamax at home - need to clarify reason. Will resume. DVT Px - Heparin SQ
[2019-08-04] MEDS: ACETAMINOPHEN 325 MG TABLET (FP) PO PRN (15:41)
[2019-08-04] MEDS: FOLIC ACID 1 MG TABLET (FP) PO SCH (15:41)
[2019-08-04] MEDS: TAMSULOSIN HCL 0.4 MG CAP PO SCH (15:41)
[2019-08-04 19:12] LABS: HEP B CORE AB, TOT Negative (Negative)
[2019-08-04] MEDS: CHLORHEXIDINE GLUCONATE 4% CLEANSER FOR DECOLONIZATION TP SCH (21:50)
[2019-08-04] MEDS: TOPIRAMATE 25 MG TABLET (FP) PO SCH (21:51)
[2019-08-05] MEDS: ACETAMINOPHEN 325 MG TABLET (FP) PO PRN ×2 (03:55→12:49)
[2019-08-05] MEDS ORDERED: PROCHLORPERAZINE INJECTION 10 MG/2 ML VIAL IVPB PRN (04:03)
[2019-08-05] MEDS ORDERED: SIMETHICONE 40 MG/0.6 ML BOTTLE PO PRN (04:03)
[2019-08-05] MEDS: INSULIN SLIDING SCALE (NOVOLOG) 1 VIAL SQ SCH ×4 (06:31→22:30)
[2019-08-05] MEDS: HEPARIN NA (PORCINE) 5,000 UNITS/ML 1ML VIAL SQ SCH ×3 (06:34→22:29)
[2019-08-05] MEDS ORDERED: MEROPENEM 1 GM in DEXTROSE 5%-WATER 100 ML IVPB ONE (07:33)
[2019-08-05] MEDS: TAMSULOSIN HCL 0.4 MG CAP PO SCH (08:37)
[2019-08-05] MEDS ORDERED: MEROPENEM 1 GM VIAL (RESTRICTED TO ID) IVPB ONE (08:41)
[2019-08-05] MEDS ORDERED: DEXTROSE 5%-WATER 100 ML IVPB ONE (08:42)
[2019-08-05 08:54] LABS: BASO % 0.5 % (0-2.0); EOS % 0.5 % (0-4.5); HEMATOCRIT 31.9 % (35.4-49); HEMOGLOBIN 10.9 GM/dL (11.7-16.9); LYMPH % 9.9 % (8-40); MCH 31.5 pg (25.7-33.7); MCHC 34.3 g/dl (32.0-35.9); MEAN PLT VOLUME 7.5 fl (7.5-11.1); MONO % 10.1 % (3.8-10.2); PLATELET COUNT 509 K/MM3 (134-434); RBC 3.47 M/mm3 (4.00-5.60); RDW 16.1 % (11.9-15.9); WHITE BLOOD COUNT 16.1 K/mm3 (4.0-10.0)
[2019-08-05 09:22] LABS: BILIRUBIN,TOTAL 1.2 mg/dL (0.2-1); BLOOD UREA NITROGEN 3.1 mg/dL (7-18); CALCIUM 7.9 mg/dL (8.5-10.1); CREATININE 0.5 mg/dL (0.55-1.3); MAGNESIUM 1.9 mg/dL (1.8-2.4); PHOSPHOROUS 2.5 mg/dL (2.5-4.9); POTASSIUM 3.5 mmol/L (3.5-5.1); TOT PROT 5.3 g/dl (6.4-8.2)
[2019-08-05] MEDS: FOLIC ACID 1 MG TABLET (FP) PO SCH (09:39)
[2019-08-05] MEDS: TOPIRAMATE 25 MG TABLET (FP) PO SCH ×2 (09:40→22:30)
[2019-08-05] MEDS: ASPIRIN COATED 81 MG TABLET.EC PO SCH (09:40)
[2019-08-05] MEDS: CARVEDILOL 25 MG TABLET (FP) PO SCH ×2 (09:40→22:29)
[2019-08-05] MEDS: THIAMINE HCL 200 MG/2 ML VIAL IVPB SCH (09:41)
[2019-08-05] MEDS ORDERED: LACTATED RINGERS SOLUTION 1,000 ML/1,000 ML INFUS.BAG IV SCH (10:30)
--- NOTE | 2019-08-05 12:48 | PN ---
Progress Note (short form) - Note Progress Note: ID CONSULT DICTATED PANCREATITIS FEVER/ LEUKOCYTOSIS LIKELY SECONDARY TO PANCREATITIS ? ETOH WITHDRAWAL AWAIT BC IN THE ABSENCE OF BILIARY TRACT DISEASE, INFECTED PANCREATIC NECROSIS/ PSEUDOCYST, OR EXTRA-PANCREATIC INFECTION WOULD OBSERVE OFF ANTIBIOTICS.
--- NOTE | 2019-08-05 14:40 | CONS ---
DATE OF CONSULTATION: DATE OF DICTATION: 08/05/2019 HISTORY OF PRESENT ILLNESS: The patient is a 54-year-old male with a history of chronic alcoholism and recurrent pancreatitis, now evaluated for fever and leukocytosis. He has a history of insulin dependent diabetes mellitus. According to the notes, he had apparently been off his insulin regimen. He was admitted with uncontrolled diabetes. His course was complicated by complaints of epigastric abdominal pain. He was noted to have a lipase of greater than 1500. A CAT scan showed evidence of acute pancreatitis. His course has been complicated by intermittent fever and elevated white blood cell count. At the present time, he complains of epigastric discomfort, as well as nausea. He denies any vomiting. He reports having loose bowel movements. He denies any shaking chills, no complaints of chest pain, shortness of breath, cough or sputum production. No dysuria or hematuria. PAST MEDICAL HISTORY: Positive for chronic alcoholism, recurrent pancreatitis, cirrhosis, insulin dependent diabetes mellitus, hypertension, hyperlipidemia, coronary artery disease, cholecystitis. PAST SURGICAL HISTORY: He is status post coronary artery stent. ALLERGIES: No known allergies. LABORATORY DATA: White count 16.1, hematocrit 31.9, platelets 509. Creatinine 0.5. Liver enzymes normal. Lipase 881. MRI of the abdomen showed findings of diffuse pancreatitis. No focal fluid collection to suggest pseudocyst, no evidence of biliary tract disease. CAT scan of the abdomen and pelvis performed yesterday showed small bilateral pleural effusions, acute pancreatitis, no evidence of pancreatic necrosis, abscess or pseudocyst. PHYSICAL EXAMINATION: General: On physical examination, he is awake. He is supine in bed, obese. Vitals: Temperature 99.5, T max 100.3, blood pressure 147/89, pulse 96 regular, respirations 20 per minute. HEENT: Sclera anicteric. Heart: Sounds S1, S2. Abdomen: Abdomen is obese. There is tenderness present in the epigastrium to deep palpation. No mass, rebound, or rigidity. Extremities: Negative for edema. Negative Shanell sign. IMPRESSION: 1. Pancreatitis. 2. Fever leukocytosis likely secondary to pancreatitis, possible ethanol withdrawal. 3. Chronic alcoholism. 4. Chronic liver disease. 5. Diabetes mellitus. RECOMMENDATIONS: Await blood cultures. In the absence of biliary tract disease, infected pancreatic necrosis or pseudocyst, or extra-pancreatic infection, would observe off antibiotic therapy. GI Follow up. Thank you for the kind referral. [place] M.D. ARISTIDES/[id number]
--- NOTE | 2019-08-05 15:27 | PN.GI ---
GI Progress Note Subjective: Patient states abdominal pain has improved Repeat CT scan revealed changes c/w pancreatitis without early fluid collections or suggestion of necrosis - Objective Vital Signs: Vital Signs Temperature 100.0 F H 08/05/19 13:45 Pulse Rate 99 H 08/05/19 13:45 Respiratory Rate 20 08/05/19 13:45 Blood Pressure 158/99 08/05/19 13:45 O2 Sat by Pulse Oximetry (%) 97 08/05/19 09:00 Constitutional: Calm Eyes: No: Sclera Icterus Cardiovascular: Yes: Regular Rate and Rhythm Respiratory: Yes: CTA Bilaterally Gastrointestinal Inspection: No: Distention ...Auscultate: Yes: Normoactive Bowel Sounds ...Palpate: Yes: Tenderness (Improved TTP in the mid abdomen). No: Guarding, Tenderness, Rebound ...Percussion: No: Tympanitic Neurological: Yes: Alert Labs: CBC, BMP 08/05/19 08:06 08/05/19 08:06 INR, PTT INR 1.31 (0.83-1.09) H 07/30/19 08:00 Problem List - Problems (1) Pancreatitis, alcoholic, acute Assessment/Plan: Clinical improvement noted. Tolerating PO Continue IV hydration. if continued improvement, advance diet to low fat / sodium controlled diet in AM and D/C IV hydration Code(s): K85.20 - ALCOHOL INDUCED ACUTE PANCREATITIS WITHOUT NECROSIS OR INFCT
--- NOTE | 2019-08-05 17:20 | PN ---
Teaching Attending Note Name of Resident: Adele Chavez ATTENDING PHYSICIAN STATEMENT I saw and evaluated the patient. I reviewed the resident's note and discussed the case with the resident. I agree with the resident's findings and plan as documented. SUBJECTIVE: Abdominal pain improving. Fever ongoing. Tolerating full liquid diet OBJECTIVE: Fever Tmax 100.3 overnight. Hemodynamically Stable. Last Vital Signs Temp Pulse Resp BP Pulse Ox 100.0 F H 99 H 20 158/99 97 08/05/19 13:45 08/05/19 13:45 08/05/19 13:45 08/05/19 13:45 08/05/19 09:00 Heart - S1, S2, RRR Lungs - decreased air entry at bases Abdomen - Distended, high BMI, mild generalized tenderness improved. Bowel Sounds normal. Extremities - Edema +. No calf tenderness. Neuro - AAO x 3. No Tremor. Tone/Power normal all extremities. Laboratory Results - last 24 hr 08/03/19 08/03/19 08/04/19 09:00 09:00 21:52 WBC RBC Hgb Hct MCV MCH MCHC RDW Plt Count MPV Absolute Neuts (auto) Neutrophils % Lymphocytes % Monocytes % Eosinophils % Basophils % Nucleated RBC % Sodium Potassium Chloride Carbon Dioxide Anion Gap BUN Creatinine Est GFR (CKD-EPI)AfAm Est GFR (CKD-EPI)NonAf POC Glucometer 229 Random Glucose Calcium Phosphorus Magnesium Total Bilirubin AST ALT Alkaline Phosphatase Total Protein Albumin Hep A IgM Ab Confirm Negative Hepatitis A Ab Total Positive H Hep Bs Antigen Negative Hep Bs Antibody Non reactive Hep B Core Total Ab Negative Hep B Core IgM Ab Negative Hepatitis Be Antibody Negative Hepatitis Be Antigen Negative HCV Quantitation Hcv not detected HCV RNA log copies/mL TN 08/05/19 08/05/19 08/05/19 06:24 08:06 08:06 WBC 16.1 H RBC 3.47 L Hgb 10.9 L Hct 31.9 L MCV 92.0 MCH 31.5 MCHC 34.3 RDW 16.1 H Plt Count 509 H D MPV 7.5 Absolute Neuts (auto) 12.7 H Neutrophils % 79.0 Lymphocytes % 9.9 Monocytes % 10.1 Eosinophils % 0.5 Basophils % 0.5 Nucleated RBC % 0 Sodium 134 L Potassium 3.5 Chloride 98 Carbon Dioxide 29 Anion Gap 7 L BUN 3.1 L Creatinine 0.5 L Est GFR (CKD-EPI)AfAm 140.40 Est GFR (CKD-EPI)NonAf 121.14 POC Glucometer 176 Random Glucose 123 H Calcium 7.9 L Phosphorus 2.5 Magnesium 1.9 Total Bilirubin 1.2 H AST 37 ALT 23 Alkaline Phosphatase 95 Total Protein 5.3 L Albumin 2.0 L Hep A IgM Ab Confirm Hepatitis A Ab Total Hep Bs Antigen Hep Bs Antibody Hep B Core Total Ab Hep B Core IgM Ab Hepatitis Be Antibody Hepatitis Be Antigen HCV Quantitation HCV RNA log copies/mL 08/05/19 08/05/19 11:21 16:54 WBC RBC Hgb Hct MCV MCH MCHC RDW Plt Count MPV Absolute Neuts (auto) Neutrophils % Lymphocytes % Monocytes % Eosinophils % Basophils % Nucleated RBC % Sodium Potassium Chloride Carbon Dioxide Anion Gap BUN Creatinine Est GFR (CKD-EPI)AfAm Est GFR (CKD-EPI)NonAf POC Glucometer 175 165 Random Glucose Calcium Phosphorus Magnesium Total Bilirubin AST ALT Alkaline Phosphatase Total Protein Albumin Hep A IgM Ab Confirm Hepatitis A Ab Total Hep Bs Antigen Hep Bs Antibody Hep B Core Total Ab Hep B Core IgM Ab Hepatitis Be Antibody Hepatitis Be Antigen HCV Quantitation HCV RNA log copies/mL Current Medications Generic Name Dose Route Start Last Admin Trade Name Freq PRN Reason Stop Dose Admin Acetaminophen 650 mg 08/04/19 13:17 08/05/19 03:55 Tylenol - PO 650 mg Q6H PRN Administration PAIN LEVEL 1-5 Aspirin 81 mg 08/05/19 10:00 08/05/19 09:40 Ecotrin - PO 81 mg DAILY SIERRA Administration Carvedilol 25 mg 08/05/19 10:00 08/05/19 09:40 Coreg - PO 25 mg BID SIERRA Administration Folic Acid 1 mg 08/04/19 15:30 08/05/19 09:39 Folic Acid - PO 1 mg DAILY SIERRA Administration Heparin Sodium (Porcine) 5,000 unit 08/05/19 06:00 08/05/19 16:26 Heparin - SQ 5,000 unit TID SIERRA Administration Lactated Ringer's 1,000 ml in 1,000 mls @ 100 mls/hr 08/05/19 10:30 08/05/19 12:53 Lactated Ringers Solution IV 100 mls/hr ASDIR SIERRA Administration Insulin Aspart 1 vial 08/05/19 07:00 08/05/19 12:50 Novolog Vial Sliding Scale - SQ 2 units ACHS SIERRA Administration Protocol Prochlorperazine Edisylate 2.5 mg 08/05/19 04:03 Compazine Injection - IVPB Q4H PRN NAUSEA AND/OR VOMITING Simethicone 80 mg 08/05/19 04:03 Mylicon Liquid - PO QID PRN GAS Tamsulosin HCl 0.4 mg 08/04/19 15:30 08/05/19 08:37 Flomax - PO 0.4 mg 0830 SIERRA Administration Thiamine HCl 200 mg 08/05/19 10:00 08/05/19 09:41 Vitamin B1 Injection - IVPB 200 mg DAILY SIERRA Administration Topiramate 50 mg 08/04/19 22:00 08/05/19 09:40 Topamax - PO 50 mg BID SIERRA Administration Home Medications Medication Instructions Recorded Folic Acid - 1 mg PO DAILY #0 tablet 12/19/12 Multivitamins [Multivit ([facility] 1 udtab PO DAILY #0 tab 12/19/12 Formulary)] Tamsulosin HCl 0.4 mg PO DAILY 11/24/15 Carvedilol [Coreg -] 25 mg PO BID #60 tablet 10/25/16 Lancets/Blood Glucose Strips [Fora 1 each AC #90 combo..pkg 05/07/17 [id number] Strp-Lnct] Atorvastatin Ca [Lipitor] 10 mg PO HS 07/24/18 Famotidine [Pepcid] 40 mg PO DAILY 02/16/19 Multivitamin [One-Daily 1 each PO DAILY 02/16/19 Multi-Vitamin] Topiramate [Topamax] 50 mg PO BID 02/16/19 Aspirin Coated [Ecotrin -] 81 mg PO DAILY #30 tablet.ec 02/19/19 Insulin Glargine,Hum.rec.anlog 5 unit SQ AM 30 Days #1 5ml 02/19/19 [Basaglar Kwikpen U-100] ASSESSMENT AND PLAN: 54 year old male with history of DM 2, HTN, Alcohol excess, CAD s/p PCI/stents, HLD, presented with epigastric pain, anorexia, and vomiting, found to have acute pancreatitis. 1. Acute Pancreatitis with SIRS - secondary to alcohol excess. Persisting fevers. Worsening leukocytosis. CT A/P - consistent with pancreatitis. Repeat CT confirms pancreatitis - no cyst /abscess/necrosis. MRCP (without contrast) - Pancreatitis, fatty liver, no biliary or pancreatic ductal dilation Initial Septic Screen negative. Repeat Blood Cx negative. On full liquid diet. Continue IV fluids - rate reduced due to some evidence of fluid sequestration. GI following. 2. DM 2 with Hyperglycemia Continue Levemir and novolog sliding scale. 3. Hyponatremia - sec to dehydration - resolved. 4. Hypokalemia/hypophosphatemia - repleted. 5. Hypophosphatemia - repleted. 6. Elevated Transaminases sec to Alcoholic hepatitis - improved. MRCP shows no biliary obstruction. 7. Hx of alcohol Abuse - continue to monitor for alcohol withdrawal. Ativan PRN. Continue Thiamine/Folate/MVI. 8. BPH - resumed on Tamsulosin. 9. CAD s/p PCI/Stent - on Aspirin, Coreg. Statin held due to elevated LFTs, now resolved. 10. BEVERLY - resolved with IV fluids. 11. On Topamax at home - need to clarify reason. Will resume. 12. HTN - Continue Coreg. DVT Px - Heparin SQ
--- NOTE | 2019-08-05 17:34 | PN ---
Physical Exam: SUBJECTIVE: Patient seen and examined OBJECTIVE: Vital Signs Period Temp Pulse Resp BP Sys/Mccoy Pulse Ox Last 24 Hr 98 F-100.0 F 81-99 18-20 146-158/78-99 97-97 GENERAL: Awake, alert, and fully oriented, in no acute distress. HEAD: Normal with no signs of trauma. EYES: Pupils equal, round and reactive to light, extraocular movements intact, conjunctiva clear. No lid lag. EARS, NOSE, THROAT: Ears normal, nares patent. Moist mucous membranes. NECK: Normal range of motion, supple without lymphadenopathy, JVD, or masses. LUNGS: mild wheezing bilaterally, and no crackles. No accessory muscle use. HEART: Regular rate and rhythm, normal S1 and S2 without murmur, rub or gallop. ABDOMEN: Distended, tender on deep palpation diffusely, more right and center, hypoactive bowel sounds, guarding, no rebound MUSCULOSKELETAL: Normal range of motion at all joints. No bony deformities or tenderness. No CVA tenderness. UPPER EXTREMITIES: 2+ pulses, warm, well-perfused. No cyanosis. No clubbing. No peripheral edema. LOWER EXTREMITIES: 2+ pulses, warm, well-perfused. No calf tenderness. No peripheral edema. NEUROLOGICAL: Cranial nerves II-XII intact. Normal speech PSYCHIATRIC: Cooperative. Good eye contact. Appropriate mood and affect. SKIN: Warm, dry, normal turgor, no rashes or lesions noted, normal capillary refill. Laboratory Results - last 24 hr 08/03/19 08/03/19 08/04/19 09:00 09:00 21:52 WBC RBC Hgb Hct MCV MCH MCHC RDW Plt Count MPV Absolute Neuts (auto) Neutrophils % Lymphocytes % Monocytes % Eosinophils % Basophils % Nucleated RBC % Sodium Potassium Chloride Carbon Dioxide Anion Gap BUN Creatinine Est GFR (CKD-EPI)AfAm Est GFR (CKD-EPI)NonAf POC Glucometer 229 Random Glucose Calcium Phosphorus Magnesium Total Bilirubin AST ALT Alkaline Phosphatase Total Protein Albumin Hep A IgM Ab Confirm Negative Hepatitis A Ab Total Positive H Hep Bs Antigen Negative Hep Bs Antibody Non reactive Hep B Core Total Ab Negative Hep B Core IgM Ab Negative Hepatitis Be Antibody Negative Hepatitis Be Antigen Negative HCV Quantitation Hcv not detected HCV RNA log copies/mL TNP 08/05/19 08/05/19 08/05/19 06:24 08:06 08:06 WBC 16.1 H RBC 3.47 L Hgb 10.9 L Hct 31.9 L MCV 92.0 MCH 31.5 MCHC 34.3 RDW 16.1 H Plt Count 509 H D MPV 7.5 Absolute Neuts (auto) 12.7 H Neutrophils % 79.0 Lymphocytes % 9.9 Monocytes % 10.1 Eosinophils % 0.5 Basophils % 0.5 Nucleated RBC % 0 Sodium 134 L Potassium 3.5 Chloride 98 Carbon Dioxide 29 Anion Gap 7 L BUN 3.1 L Creatinine 0.5 L Est GFR (CKD-EPI)AfAm 140.40 Est GFR (CKD-EPI)NonAf 121.14 POC Glucometer 176 Random Glucose 123 H Calcium 7.9 L Phosphorus 2.5 Magnesium 1.9 Total Bilirubin 1.2 H AST 37 ALT 23 Alkaline Phosphatase 95 Total Protein 5.3 L Albumin 2.0 L Hep A IgM Ab Confirm Hepatitis A Ab Total Hep Bs Antigen Hep Bs Antibody Hep B Core Total Ab Hep B Core IgM Ab Hepatitis Be Antibody Hepatitis Be Antigen HCV Quantitation HCV RNA log copies/mL 08/05/19 08/05/19 11:21 16:54 WBC RBC Hgb Hct MCV MCH MCHC RDW Plt Count MPV Absolute Neuts (auto) Neutrophils % Lymphocytes % Monocytes % Eosinophils % Basophils % Nucleated RBC % Sodium Potassium Chloride Carbon Dioxide Anion Gap BUN Creatinine Est GFR (CKD-EPI)AfAm Est GFR (CKD-EPI)NonAf POC Glucometer 175 165 Random Glucose Calcium Phosphorus Magnesium Total Bilirubin AST ALT Alkaline Phosphatase Total Protein Albumin Hep A IgM Ab Confirm Hepatitis A Ab Total Hep Bs Antigen Hep Bs Antibody Hep B Core Total Ab Hep B Core IgM Ab Hepatitis Be Antibody Hepatitis Be Antigen HCV Quantitation HCV RNA log copies/mL Active Medications Generic Name Dose Route Start Last Admin Trade Name Freq PRN Reason Stop Dose Admin Acetaminophen 650 mg 08/04/19 13:17 08/05/19 03:55 Tylenol - PO 650 mg Q6H PRN Administration PAIN LEVEL 1-5 Aspirin 81 mg 08/05/19 10:00 08/05/19 09:40 Ecotrin - PO 81 mg DAILY [facility] Administration Carvedilol 25 mg 08/05/19 10:00 08/05/19 09:40 Coreg - PO 25 mg BID [facility] Administration Folic Acid 1 mg 08/04/19 15:30 08/05/19 09:39 Folic Acid - PO 1 mg DAILY [facility] Administration Heparin Sodium (Porcine) 5,000 unit 09/13/19 06:00 08/05/19 16:26 Heparin - SQ 5,000 unit TID [facility] Administration Lactated Ringer's 1,000 ml in 1,000 mls @ 100 mls/hr 08/05/19 10:30 08/05/19 12:53 Lactated Ringers Solution IV 100 mls/hr ASDIR [facility] Administration Insulin Aspart 1 vial 08/05/19 07:00 08/05/19 12:50 Novolog Vial Sliding Scale - SQ 2 units ACHS [facility] Administration Protocol Prochlorperazine Edisylate 2.5 mg 08/05/19 04:03 Compazine Injection - IVPB Q4H PRN NAUSEA AND/OR VOMITING Simethicone 80 mg 08/05/19 04:03 Mylicon Liquid - PO QID PRN GAS Tamsulosin HCl 0.4 mg 08/04/19 15:30 08/05/19 08:37 Flomax - PO 0.4 mg 0830 [facility] Administration Thiamine HCl 200 mg 08/05/19 10:00 08/05/19 09:41 Vitamin B1 Injection - IVPB 200 mg DAILY [facility] Administration Topiramate 50 mg 08/04/19 22:00 08/05/19 09:40 Topamax - PO 50 mg BID [facility] Administration ASSESSMENT/PLAN: Mr. Knowles is a 54 y/o male with IDDM, HTN, HLD, CAD s/p PCI, pancreatitis, cholecystitis, gastritis, liver cirrhosis, and alcohol use disorder who presents with abdominal pain x 10 days. He was found to have BG of 483. #acute pancreatitis 2/2 ETOH use Pt tender on palpation. CT yesterday confirmed pancreatitis, with no necrosis, cyst, abscess. Pt is continuing to have intermittent fever as well as leukocytosis. Tmax 101. WBC 16.1 -clear liquids -LR 250mL/hr -CMP #SIRS Tmax 101 overnight. WBC 16.1 -repeat blood cultures are pending -begin ertapenem or meropenem if fever returns #normocytic anemia Hb 10.9. Recent. -will monitor #thrombocytosis, possibly 2/2 infection vs less likely anemia Plt 509. -monitor #hypokalemia, resolved 3.5 -recheck #hypophosphatemia, resolved 2.9 -recheck #hypomagnesemia, resolved 1.9 -recheck #transaminitis, reactive vs ETOH use, resolved Steadily downtrending during admission. Now WNL. U/S fatty infiltration of liver -monitor #anion gap metabolic acidosis, resolved anion gap closed, initially 21 on presentation with BG 483. Possible DKA component vs ketosis from anorexia #BEVERLY, resolved Cr 0.5. likely pre-renal from dehydration -continue hydration #DM 100s today -SSI -BGM #alcohol use disorder Pt has not had drink in 7 days prior to admission. Unlikely to have withdrawal seizure, CIWA ~4 at admission -ativan PRN -supplement thiamine, folate, MV #medication non-compliance Called pt's pharmacy and scripts have not been picked up since April. PCP provided by pt has not been seen in 2 years per PCP's office. Pt's med list included Topamax. Began tx to avoid any possible seizures, especially given ETOH use disorder. FEN NS monitor K, phos, Mg clear liquids DVT Prophylaxis herparin dispo med/surg floor Visit type - Emergency Visit Emergency Visit: Yes ED Registration Date: 07/29/19 Care time: The patient presented to the Emergency Department on the above date and was hospitalized for further evaluation of their emergent condition. - New Patient This patient is new to me today: No - Critical Care Critical Care patient: No - Discharge Referral Referred to [facility] Med P.C.: No ATTENDING PHYSICIAN STATEMENT I saw and evaluated the patient. I reviewed the resident's note and discussed the case with the resident. I agree with the resident's findings and plan as documented. SUBJECTIVE: OBJECTIVE: ASSESSMENT AND PLAN:
[2019-08-05] MEDS ORDERED: INSULIN (NOVOLOG) ASPART 100 UNITS/ML 10ML VIAL ONE (18:47)
[2019-08-05] MEDS ORDERED: PT OWN MED DRAWER 7, Y5N ONE (20:58)
[2019-08-06] MEDS: HEPARIN NA (PORCINE) 5,000 UNITS/ML 1ML VIAL SQ SCH ×3 (05:55→21:00)
[2019-08-06] MEDS: INSULIN SLIDING SCALE (NOVOLOG) 1 VIAL SQ SCH ×4 (05:59→21:01)
[2019-08-06 08:08] LABS: BASO % 0.8 % (0-2.0); EOS % 0.6 % (0-4.5); HEMOGLOBIN 11.3 GM/dL (11.7-16.9); LYMPH % 11.6 % (8-40); MCH 31.6 pg (25.7-33.7); MCHC 34.2 g/dl (32.0-35.9); MEAN CELL VOLUME 92.4 fl (80-96); MEAN PLT VOLUME 7.6 fl (7.5-11.1); MONO % 8.9 % (3.8-10.2); NEUT % 78.1 % (42.8-82.8); PLATELET COUNT 614 K/MM3 (134-434); RBC 3.58 M/mm3 (4.00-5.60); RDW 16.5 % (11.9-15.9)
[2019-08-06 08:41] LABS: ALBUMIN 2.1 g/dl (3.4-5.0); BILIRUBIN,TOTAL 1.3 mg/dL (0.2-1); BLOOD UREA NITROGEN 4.4 mg/dL (7-18); CALCIUM 8.4 mg/dL (8.5-10.1); CREATININE 0.5 mg/dL (0.55-1.3); MAGNESIUM 1.9 mg/dL (1.8-2.4); PHOSPHOROUS 3.2 mg/dL (2.5-4.9); POTASSIUM 4.2 mmol/L (3.5-5.1); TOT PROT 5.8 g/dl (6.4-8.2)
[2019-08-06 09:35] LABS: ANISOCYTOSIS 0; MACROCYTOSIS 0; PLATELET ESTIMATE INCREASED
[2019-08-06] MEDS: TOPIRAMATE 25 MG TABLET (FP) PO SCH ×2 (10:10→20:59)
[2019-08-06] MEDS: ASPIRIN COATED 81 MG TABLET.EC PO SCH (10:11)
[2019-08-06] MEDS: THIAMINE HCL 200 MG/2 ML VIAL IVPB SCH (10:11)
[2019-08-06] MEDS: CARVEDILOL 25 MG TABLET (FP) PO SCH ×2 (10:11→21:00)
[2019-08-06] MEDS: FOLIC ACID 1 MG TABLET (FP) PO SCH (10:11)
[2019-08-06] MEDS: TAMSULOSIN HCL 0.4 MG CAP PO SCH (10:12)
--- NOTE | 2019-08-06 13:11 | PN ---
Physical Exam: SUBJECTIVE: Patient seen and examined. He reports "a little" abdominal pain RUQ and epigastric pain. He denies n/v/d. Tolerating diet. OBJECTIVE: Vital Signs Period Temp Pulse Resp BP Sys/Mccoy Pulse Ox Last 24 Hr 97.7 F-100.0 F 76-99 18-20 130-178/68-99 100 GENERAL: The patient is awake, alert, and fully oriented, in no acute distress. HEAD: Normal with no signs of trauma. EYES: PERRL, extraocular movements intact, sclera anicteric, conjunctiva clear. No ptosis. ENT: Ears normal, nares patent, oropharynx clear without exudates, moist mucous membranes. NECK: Trachea midline, full range of motion, supple. LUNGS: Crackles at both lung bases, no accessory muscle use. HEART: Regular rate and rhythm, S1, S2 without murmur, rub or gallop. ABDOMEN: Distended, RUQ and epigastric tenderness on palpation, normoactive bowel sounds, no guarding EXTREMITIES: 2+ pulses, warm, well-perfused, no edema. NEUROLOGICAL: Cranial nerves II through XII grossly intact. Normal speech, gait not observed. PSYCH: Normal mood, normal affect. SKIN: Warm, dry, normal turgor, no rashes or lesions noted Laboratory Results - last 24 hr 08/05/19 08/05/19 08/06/19 16:54 22:27 05:56 WBC RBC Hgb Hct MCV MCH MCHC RDW Plt Count MPV Absolute Neuts (auto) Neutrophils % Neutrophils % (Manual) Band Neutrophils % Lymphocytes % Lymphocytes % (Manual) Monocytes % Monocytes % (Manual) Eosinophils % Eosinophils % (Manual) Basophils % Basophils % (Manual) Myelocytes % (Man) Promyelocytes % (Man) Blast Cells % (Manual) Nucleated RBC % Metamyelocytes Hypochromia Platelet Estimate Polychromasia Poikilocytosis Anisocytosis Microcytosis Macrocytosis Sodium Potassium Chloride Carbon Dioxide Anion Gap BUN Creatinine Est GFR (CKD-EPI)AfAm Est GFR (CKD-EPI)NonAf POC Glucometer 165 149 173 Random Glucose Calcium Phosphorus Magnesium Total Bilirubin AST ALT Alkaline Phosphatase Total Protein Albumin 08/06/19 08/06/19 08/06/19 06:45 06:45 12:10 WBC 14.0 H RBC 3.58 L Hgb 11.3 L Hct 33.0 L MCV 92.4 MCH 31.6 MCHC 34.2 RDW 16.5 H Plt Count 614 H D MPV 7.6 Absolute Neuts (auto) 10.9 H Neutrophils % 78.1 Neutrophils % (Manual) 85.0 H Band Neutrophils % 0.0 Lymphocytes % 11.6 Lymphocytes % (Manual) 8.0 Monocytes % 8.9 Monocytes % (Manual) 6 Eosinophils % 0.6 Eosinophils % (Manual) 0.0 Basophils % 0.8 Basophils % (Manual) 0.0 Myelocytes % (Man) 0 Promyelocytes % (Man) 0 Blast Cells % (Manual) 1 H D Nucleated RBC % 0 Metamyelocytes 0 Hypochromia 0 Platelet Estimate Increased Polychromasia 0 Poikilocytosis 0 Anisocytosis 0 Microcytosis 0 Macrocytosis 0 Sodium 134 L Potassium 4.2 Chloride 99 Carbon Dioxide 27 Anion Gap 8 BUN 4.4 L Creatinine 0.5 L Est GFR (CKD-EPI)AfAm 140.40 Est GFR (CKD-EPI)NonAf 121.14 POC Glucometer 182 Random Glucose 168 H Calcium 8.4 L Phosphorus 3.2 Magnesium 1.9 Total Bilirubin 1.3 H AST 33 ALT 22 Alkaline Phosphatase 101 Total Protein 5.8 L Albumin 2.1 L Active Medications Generic Name Dose Route Start Last Admin Trade Name Freq PRN Reason Stop Dose Admin Acetaminophen 650 mg 08/04/19 13:17 08/05/19 12:49 Tylenol - PO 650 mg Q6H PRN Administration PAIN LEVEL 1-5 Aspirin 81 mg 08/05/19 10:00 08/06/19 10:11 Ecotrin - PO 81 mg DAILY [facility]ER[facility] Administration Carvedilol 25 mg 08/05/19 10:00 08/06/19 10:11 Coreg - PO 25 mg BID SIERRA Administration Folic Acid 1 mg 08/04/19 15:30 08/06/19 10:11 Folic Acid - PO 1 mg DAILY [facility] Administration Heparin Sodium (Porcine) 5,000 unit 08/05/19 06:00 08/06/19 05:55 Heparin - SQ 5,000 unit TID [facility]ER[facility] Administration Insulin Aspart 1 vial 08/05/19 07:00 08/06/19 05:59 Novolog Vial Sliding Scale - SQ 2 units ACHS [facility]ER[facility] Administration Protocol Prochlorperazine Edisylate 2.5 mg 08/05/19 04:03 Compazine Injection - IVPB Q4H PRN NAUSEA AND/OR VOMITING Simethicone 80 mg 08/05/19 04:03 Mylicon Liquid - PO QID PRN GAS Tamsulosin HCl 0.4 mg 08/04/19 15:30 08/06/19 10:12 Flomax - PO 0.4 mg 0830 SIERRA Administration Thiamine HCl 200 mg 08/05/19 10:00 08/06/19 10:11 Vitamin B1 Injection - IVPB 200 mg DAILY [facility] Administration Topiramate 50 mg 08/04/19 22:00 08/06/19 10:10 Topamax - PO 50 mg BID [facility]ER[facility] Administration ASSESSMENT/PLAN: Mr. Knowles is a 54 y/o male with IDDM, HTN, HLD, CAD s/p PCI, pancreatitis, cholecystitis, gastritis, liver cirrhosis, and alcohol use disorder who presents with abdominal pain x 10 days. He was found to have BG of 483. #acute pancreatitis 2/2 ETOH use Pt tender on palpation. CT yesterday confirmed pancreatitis, with no necrosis, cyst, abscess. Tmax 100.0. WBC 14.0 -advance diet to low fat/low Na -d/c IV fluids -CMP #SIRS Tmax 100.0. improving. WBC 16.1-->14.0 -repeat blood cultures are pending from 08/04/19, negative so far -begin ertapenem or meropenem if worsening #normocytic anemia Hb 11.3. Recent. Asymptomatic -will monitor #thrombocytosis, possibly 2/2 infection vs less likely anemia Plt 509-->614 -monitor, consider workup if >1,000 #hypokalemia, resolved 4.2 #hypophosphatemia, resolved 3.2 #hypomagnesemia, resolved 1.9 #transaminitis, reactive vs ETOH use, resolved Steadily downtrending during admission. Now WNL. U/S fatty infiltration of liver -monitor #anion gap metabolic acidosis, resolved anion gap closed, initially 21 on presentation with BG 483. Possible DKA component vs ketosis from anorexia #BEVERLY, resolved Cr 0.5. likely pre-renal from dehydration -continue hydration #DM 100s today -SSI -BGM #alcohol use disorder Pt has not had drink in 7 days prior to admission. Unlikely to have withdrawal seizure, CIWA ~4 at admission -ativan PRN -supplement thiamine, folate, MV #medication non-compliance Called pt's pharmacy and scripts have not been picked up since April. PCP provided by pt has not been seen in 2 years per PCP's office. Pt's med list included Topamax. Began tx to avoid any possible seizures, especially given ETOH use disorder. FEN PO monitor K, phos, Mg low fat/low Na diet DVT Prophylaxis herparin dispo med/surg floor Visit type - Emergency Visit Emergency Visit: Yes ED Registration Date: 07/29/19 Care time: The patient presented to the Emergency Department on the above date and was hospitalized for further evaluation of their emergent condition. - New Patient This patient is new to me today: No - Critical Care Critical Care patient: No - Discharge Referral Referred to [facility] Med P.C.: No ATTENDING PHYSICIAN STATEMENT I saw and evaluated the patient. I reviewed the resident's note and discussed the case with the resident. I agree with the resident's findings and plan as documented. SUBJECTIVE: OBJECTIVE: ASSESSMENT AND PLAN:
[2019-08-06] MEDS ORDERED: INSULIN (NOVOLOG) ASPART 100 UNITS/ML 10ML VIAL ONE ×2 (13:24→17:46)
--- NOTE | 2019-08-06 14:30 | PN ---
Teaching Attending Note Name of Resident: Adele Chavez ATTENDING PHYSICIAN STATEMENT I saw and evaluated the patient. I reviewed the resident's note and discussed the case with the resident. I agree with the resident's findings and plan as documented. SUBJECTIVE: Abdominal pain improved. Tolerating full liquid diet OBJECTIVE: Tmax 100 overnight. Hemodynamically Stable. Last Vital Signs Temp Pulse Resp BP Pulse Ox 97.7 F 93 H 20 178/82 H 100 08/06/19 10:00 08/06/19 10:00 08/06/19 10:08/06/19 10:08/05/19 21:00 Heart - S1, S2, RRR Lungs - decreased air entry at bases Abdomen - Distended, high BMI, mild generalized tenderness improved. Bowel Sounds normal. Extremities - Edema +. No calf tenderness. Neuro - AAO x 3. No Tremor. Tone/Power normal all extremities. Laboratory Results - last 24 hr 08/05/19 08/05/19 08/06/19 16:54 22:27 05:56 WBC RBC Hgb Hct MCV MCH MCHC RDW Plt Count MPV Absolute Neuts (auto) Neutrophils % Neutrophils % (Manual) Band Neutrophils % Lymphocytes % Lymphocytes % (Manual) Monocytes % Monocytes % (Manual) Eosinophils % Eosinophils % (Manual) Basophils % Basophils % (Manual) Myelocytes % (Man) Promyelocytes % (Man) Blast Cells % (Manual) Nucleated RBC % Metamyelocytes Hypochromia Platelet Estimate Polychromasia Poikilocytosis Anisocytosis Microcytosis Macrocytosis Sodium Potassium Chloride Carbon Dioxide Anion Gap BUN Creatinine Est GFR (CKD-EPI)AfAm Est GFR (CKD-EPI)NonAf POC Glucometer 165 149 173 Random Glucose Calcium Phosphorus Magnesium Total Bilirubin AST ALT Alkaline Phosphatase Total Protein Albumin 08/06/19 08/06/19 08/06/19 06:45 06:45 12:10 WBC 14.0 H RBC 3.58 L Hgb 11.3 L Hct 33.0 L MCV 92.4 MCH 31.6 MCHC 34.2 RDW 16.5 H Plt Count 614 H D MPV 7.6 Absolute Neuts (auto) 10.9 H Neutrophils % 78.1 Neutrophils % (Manual) 85.0 H Band Neutrophils % 0.0 Lymphocytes % 11.6 Lymphocytes % (Manual) 8.0 Monocytes % 8.9 Monocytes % (Manual) 6 Eosinophils % 0.6 Eosinophils % (Manual) 0.0 Basophils % 0.8 Basophils % (Manual) 0.0 Myelocytes % (Man) 0 Promyelocytes % (Man) 0 Blast Cells % (Manual) 1 H D Nucleated RBC % 0 Metamyelocytes 0 Hypochromia 0 Platelet Estimate Increased Polychromasia 0 Poikilocytosis 0 Anisocytosis 0 Microcytosis 0 Macrocytosis 0 Sodium 134 L Potassium 4.2 Chloride 99 Carbon Dioxide 27 Anion Gap 8 BUN 4.4 L Creatinine 0.5 L Est GFR (CKD-EPI)AfAm 140.40 Est GFR (CKD-EPI)NonAf 121.14 POC Glucometer 182 Random Glucose 168 H Calcium 8.4 L Phosphorus 3.2 Magnesium 1.9 Total Bilirubin 1.3 H AST 33 ALT 22 Alkaline Phosphatase 101 Total Protein 5.8 L Albumin 2.1 L Current Medications Generic Name Dose Route Start Last Admin Trade Name Freq PRN Reason Stop Dose Admin Acetaminophen 650 mg 08/04/19 13:17 08/05/19 12:49 Tylenol - PO 650 mg Q6H PRN Administration PAIN LEVEL 1-5 Aspirin 81 mg 08/05/19 10:00 08/06/19 10:11 Ecotrin - PO 81 mg DAILY [facility] Administration Carvedilol 25 mg 08/05/19 10:00 08/06/19 10:11 Coreg - PO 25 mg BID [facility] Administration Folic Acid 1 mg 08/04/19 15:30 08/06/19 10:11 Folic Acid - PO 1 mg DAILY [facility]ER[facility] Administration Heparin Sodium (Porcine) 5,000 unit 08/05/19 06:00 08/06/19 13:42 Heparin - SQ 5,000 unit TID [facility]ERRA Administration Insulin Aspart 1 vial 08/05/19 07:00 08/06/19 13:42 Novolog Vial Sliding Scale - SQ 2 units ACHS [facility]ER[facility] Administration Protocol Prochlorperazine Edisylate 2.5 mg 08/05/19 04:03 Compazine Injection - IVPB Q4H PRN NAUSEA AND/OR VOMITING Simethicone 80 mg 08/05/19 04:03 Mylicon Liquid - PO QID PRN GAS Tamsulosin HCl 0.4 mg 08/04/19 15:30 08/06/19 10:12 Flomax - PO 0.4 mg 0830 [facility]ERRA Administration Thiamine HCl 200 mg 08/05/19 10:00 08/06/19 10:11 Vitamin B1 Injection - IVPB 200 mg DAILY [facility]ER[facility] Administration Topiramate 50 mg 08/04/19 22:00 08/06/19 10:10 Topamax - PO 50 mg BID SEIRRA Administration Home Medications Medication Instructions Recorded Folic Acid - 1 mg PO DAILY #0 tablet 12/19/12 Multivitamins [Multivit ([facility] 1 udtab PO DAILY #0 tab 12/19/12 Formulary)] Tamsulosin HCl 0.4 mg PO DAILY 11/24/15 Carvedilol [Coreg -] 25 mg PO BID #60 tablet 10/25/16 Lancets/Blood Glucose Strips [Fora 1 each AC #90 combo..pkg 05/07/17 [id number] Strp-Lnct] Atorvastatin Ca [Lipitor] 10 mg PO HS 07/24/18 Famotidine [Pepcid] 40 mg PO DAILY 02/16/19 Multivitamin [One-Daily 1 each PO DAILY 02/16/19 Multi-Vitamin] Topiramate [Topamax] 50 mg PO BID 02/16/19 Aspirin Coated [Ecotrin -] 81 mg PO DAILY #30 tablet.ec 02/19/19 Insulin Glargine,Hum.rec.anlog 5 unit SQ AM 30 Days #1 5ml 02/19/19 [Basaglar Kwikpen U-100] ASSESSMENT AND PLAN: 54 year old male with history of DM 2, HTN, Alcohol excess, CAD s/p PCI/stents, HLD, presented with epigastric pain, anorexia, and vomiting, found to have acute pancreatitis. 1. Acute Pancreatitis with SIRS - secondary to alcohol excess. Temperatures plateauing. Leukocytosis improving. CT A/P - consistent with pancreatitis. Repeat CT confirms pancreatitis - no cyst /abscess/necrosis. MRCP (without contrast) - Pancreatitis, fatty liver, no biliary or pancreatic ductal dilation Initial Septic Screen negative. Repeat Blood Cx negative. Diet advanced, IV fluids stopped. ID consulted - holding off Abx therapy given no clear source of infection and absence of biliary infection, necrosis, or pseudocyst. GI following. 2. DM 2 with Hyperglycemia Continue Levemir and Novolog sliding scale. 3. Hyponatremia - sec to dehydration - resolved. 4. Hypokalemia/hypophosphatemia - repleted. 5. Hypophosphatemia - repleted. 6. Elevated Transaminases sec to Alcoholic hepatitis - improved. MRCP shows no biliary obstruction. 7. Hx of alcohol Abuse - continue to monitor for alcohol withdrawal. Ativan PRN. Continue Thiamine/Folate/MVI. 8. BPH - resumed on Tamsulosin. 9. CAD s/p PCI/Stent - on Aspirin, Coreg. Statin held due to elevated LFTs, now resolved. 10. BEVERLY - resolved with IV fluids. 11. On Topamax at home - reason unclear. Will resume. 12. HTN - Continue Coreg. DVT Px - Heparin SQ
[2019-08-06] MEDS: ACETAMINOPHEN 1000 MG/100 ML VIAL (NON FORMULARY) IVPB PRN (15:48)
[2019-08-06] MEDS: LACTATED RINGERS SOLUTION 1,000 ML/1,000 ML INFUS.BAG IV SCH ×2 (15:49→20:50)
[2019-08-06] MEDS ORDERED: MEROPENEM 1 GM VIAL (RESTRICTED TO ID) IVPB ONE (17:20)
[2019-08-06] MEDS ORDERED: DEXTROSE 5%-WATER 100 ML IVPB ONE (17:20)
[2019-08-06] MEDS: MEROPENEM 1 GM in DEXTROSE 5%-WATER 100 ML IVPB SCH ×2 (17:25→17:30)
[2019-08-07] MEDS ORDERED: DEXTROSE 5%-WATER 100 ML IVPB ONE ×3 (01:40→16:55)
[2019-08-07] MEDS ORDERED: MEROPENEM 1 GM VIAL (RESTRICTED TO ID) IVPB ONE ×3 (01:40→16:55)
[2019-08-07] MEDS: MEROPENEM 1 GM in DEXTROSE 5%-WATER 100 ML IVPB SCH ×3 (01:54→17:12)
[2019-08-07] MEDS ORDERED: LORazepam 2 MG/ML SDV VIAL IVPUSH ONE (02:49)
[2019-08-07] MEDS: HEPARIN NA (PORCINE) 5,000 UNITS/ML 1ML VIAL SQ SCH ×3 (06:17→21:49)
[2019-08-07] MEDS: ACETAMINOPHEN 1000 MG/100 ML VIAL (NON FORMULARY) IVPB PRN ×2 (06:17→21:48)
[2019-08-07] MEDS: INSULIN SLIDING SCALE (NOVOLOG) 1 VIAL SQ SCH ×4 (06:18→21:50)
[2019-08-07 08:25] LABS: BASO % 0.5 % (0-2.0); EOS % 0.6 % (0-4.5); HEMATOCRIT 32.1 % (35.4-49); HEMOGLOBIN 10.9 GM/dL (11.7-16.9); LYMPH % 12.7 % (8-40); MCH 31.2 pg (25.7-33.7); MCHC 33.9 g/dl (32.0-35.9); MEAN CELL VOLUME 91.9 fl (80-96); MEAN PLT VOLUME 7.7 fl (7.5-11.1); MONO % 9.5 % (3.8-10.2); NEUT % 76.7 % (42.8-82.8); PLATELET COUNT 646 K/MM3 (134-434); RBC 3.49 M/mm3 (4.00-5.60); RDW 16.6 % (11.9-15.9)
[2019-08-07 08:32] LABS: BILIRUBIN,TOTAL 0.9 mg/dL (0.2-1); BLOOD UREA NITROGEN 4.7 mg/dL (7-18); CREATININE 0.5 mg/dL (0.55-1.3); MAGNESIUM 1.8 mg/dL (1.8-2.4); PHOSPHOROUS 2.6 mg/dL (2.5-4.9); POTASSIUM 4.1 mmol/L (3.5-5.1); TOT PROT 5.6 g/dl (6.4-8.2)
[2019-08-07] MEDS: TAMSULOSIN HCL 0.4 MG CAP PO SCH (09:37)
[2019-08-07] MEDS: THIAMINE HCL 200 MG/2 ML VIAL IVPB SCH (09:38)
[2019-08-07] MEDS: FOLIC ACID 1 MG TABLET (FP) PO SCH (09:38)
[2019-08-07] MEDS: ASPIRIN COATED 81 MG TABLET.EC PO SCH (09:38)
[2019-08-07] MEDS: CARVEDILOL 25 MG TABLET (FP) PO SCH ×2 (09:38→21:49)
[2019-08-07] MEDS ORDERED: PT OWN MED DRAWER 7, Y5N ONE (09:39)
[2019-08-07] MEDS: TOPIRAMATE 25 MG TABLET (FP) PO SCH ×2 (09:40→21:49)
[2019-08-07] MEDS ORDERED: LORazepam 2 MG/ML SDV VIAL IVPUSH PRN (10:03)
--- NOTE | 2019-08-07 11:49 | PN ---
Progress Note, Physician History of Present Illness: FEVER PAST 24HR 102.6 C/O ABDOMINAL DISCOMFORT DENIES N/V NOW NPO REPEAT BC ORDERED, EMPIRIC MEROPENEM STARTED - Current Medication List Current Medications: Active Medications Acetaminophen (Ofirmev Injection -) 1,000 mg IVPB Q6H PRN PRN Reason: FEVER Last Admin: 08/07/19 06:17 Dose: 1,000 mg Aspirin (Ecotrin -) 81 mg PO DAILY [facility] Last Admin: 08/07/19 09:38 Dose: 81 mg Carvedilol (Coreg -) 25 mg PO BID [facility] Last Admin: 08/07/19 09:38 Dose: 25 mg Folic Acid (Folic Acid -) 1 mg PO DAILY [facility] Last Admin: 08/07/19 09:38 Dose: 1 mg Heparin Sodium (Porcine) (Heparin -) 5,000 unit SQ TID [facility] Last Admin: 08/07/19 06:17 Dose: 5,000 unit Lactated Ringer's (Lactated Ringers Solution) 1,000 ml in 1,000 mls @ 125 mls/ hr IV ASDIR [facility] Last Admin: 08/06/19 20:50 Dose: 125 mls/hr Meropenem 1 gm/ Dextrose 100 mls @ 200 mls/hr IVPB Q8H-IV [facility] Last Admin: 08/07/19 09:37 Dose: 200 mls/hr Insulin Aspart (Novolog Vial Sliding Scale -) 1 vial SQ ACHS [facility]; Protocol Last Admin: 08/07/19 06:18 Dose: Not Given Lorazepam (Ativan Injection -) 0.5 mg IVPUSH Q8H PRN PRN Reason: ANXIETY Prochlorperazine Edisylate (Compazine Injection -) 2.5 mg IVPB Q4H PRN PRN Reason: NAUSEA AND/OR VOMITING Simethicone (Mylicon Liquid -) 80 mg PO QID PRN PRN Reason: GAS Tamsulosin HCl (Flomax -) 0.4 mg PO 0830 [facility] Last Admin: 08/07/19 09:37 Dose: 0.4 mg Thiamine HCl (Vitamin B1 Injection -) 200 mg IVPB DAILY [facility] Last Admin: 08/07/19 09:38 Dose: 200 mg Topiramate (Topamax -) 50 mg PO BID [facility] Last Admin: 08/07/19 09:40 Dose: 50 mg - Objective Vital Signs: Vital Signs Temperature 98.2 F 08/07/19 09:57 Pulse Rate 80 08/07/19 09:57 Respiratory Rate 18 08/07/19 09:57 Blood Pressure 177/96 H 08/07/19 09:57 O2 Sat by Pulse Oximetry (%) 99 08/06/19 21:00 Constitutional: Yes: No Distress Cardiovascular: Yes: Regular Rate and Rhythm, S1, S2 Respiratory: Yes: CTA Bilaterally Gastrointestinal: Yes: Normal Bowel Sounds, Other (DISTENDED, EPIGASTRIC TENDERNESS) Labs: CBC, BMP 08/07/19 06:45 08/07/19 06:45 INR, PTT INR 1.31 (0.83-1.09) H 07/30/19 08:00 Assessment/Plan FEVER/ LEUKOCYTOSIS LIKELY SECONDARY TO PANCREATITIS REPEAT C/S ORDERED CONTINUE EMPIRIC MEROPENEM GI RE-EVAL
--- NOTE | 2019-08-07 13:37 | PN ---
Progress Note (short form) - Note Progress Note: SUBJECTIVE: Ongoing epigastric/RUQ abdominal discomfort. Fever overnight. No nausea/vomiting. No diarrhea. OBJECTIVE: Tmax 102.6. Hemodynamically Stable. Last Vital Signs Temp Pulse Resp BP Pulse Ox 98.2 F 80 18 177/96 H 99 08/07/19 09:57 08/07/19 09:57 08/07/19 09:57 08/07/19 09:57 08/06/19 21:00 Heart - S1, S2, RRR Lungs - decreased air entry at bases Abdomen - Distended, high BMI, mild generalized tenderness improved. Bowel Sounds normal. Extremities - Edema +. No calf tenderness. Neuro - AAO x 3. No Tremor. Tone/Power normal all extremities. Laboratory Results - last 24 hr 08/06/19 08/06/19 08/07/19 17:13 20:54 03:11 WBC RBC Hgb Hct MCV MCH MCHC RDW Plt Count MPV Absolute Neuts (auto) Neutrophils % Lymphocytes % Monocytes % Eosinophils % Basophils % Nucleated RBC % Sodium Potassium Chloride Carbon Dioxide Anion Gap BUN Creatinine Est GFR (CKD-EPI)AfAm Est GFR (CKD-EPI)NonAf POC Glucometer 187 167 218 Random Glucose Calcium Phosphorus Magnesium Total Bilirubin AST ALT Alkaline Phosphatase Total Protein Albumin 08/07/19 08/07/19 08/07/19 06:06 06:45 06:45 WBC 13.0 H RBC 3.49 L Hgb 10.9 L Hct 32.1 L MCV 91.9 MCH 31.2 MCHC 33.9 RDW 16.6 H Plt Count 646 H MPV 7.7 Absolute Neuts (auto) 10.0 H Neutrophils % 76.7 Lymphocytes % 12.7 Monocytes % 9.5 Eosinophils % 0.6 Basophils % 0.5 Nucleated RBC % 0 Sodium 134 L Potassium 4.1 Chloride 102 Carbon Dioxide 25 Anion Gap 7 L BUN 4.7 L Creatinine 0.5 L Est GFR (CKD-EPI)AfAm 140.40 Est GFR (CKD-EPI)NonAf 121.14 POC Glucometer 174 Random Glucose 163 H Calcium 8.0 L Phosphorus 2.6 Magnesium 1.8 Total Bilirubin 0.9 AST 29 ALT 20 Alkaline Phosphatase 92 Total Protein 5.6 L Albumin 2.0 L 08/07/19 13:03 WBC RBC Hgb Hct MCV MCH MCHC RDW Plt Count MPV Absolute Neuts (auto) Neutrophils % Lymphocytes % Monocytes % Eosinophils % Basophils % Nucleated RBC % Sodium Potassium Chloride Carbon Dioxide Anion Gap BUN Creatinine Est GFR (CKD-EPI)AfAm Est GFR (CKD-EPI)NonAf POC Glucometer 174 Random Glucose Calcium Phosphorus Magnesium Total Bilirubin AST ALT Alkaline Phosphatase Total Protein Albumin Current Medications Generic Name Dose Route Start Last Admin Trade Name Freq PRN Reason Stop Dose Admin Acetaminophen 1,000 mg 08/06/19 15:27 08/07/19 06:17 Ofirmev Injection - IVPB 1,000 mg Q6H PRN Administration FEVER Aspirin 81 mg 08/05/19 10:00 08/07/19 09:38 Ecotrin - PO 81 mg DAILY [facility] Administration Carvedilol 25 mg 08/05/19 10:00 08/07/19 09:38 Coreg - PO 25 mg BID [facility]RA Administration Folic Acid 1 mg 08/04/19 15:30 08/07/19 09:38 Folic Acid - PO 1 mg DAILY [facility] Administration Heparin Sodium (Porcine) 5,000 unit 08/05/19 06:00 08/07/19 06:17 Heparin - SQ 5,000 unit TID [facility] Administration Lactated Ringer's 1,000 ml in 1,000 mls @ 125 mls/hr 08/06/19 15:45 08/06/19 20:50 Lactated Ringers Solution IV 125 mls/hr ASDIR [facility] Administration Meropenem 1 gm/ Dextrose 100 mls @ 200 mls/hr 08/06/19 15:33 08/07/19 09:37 IVPB 200 mls/hr Q8H-IV [facility]ER[facility] Administration Insulin Aspart 1 vial 08/05/19 07:00 08/07/19 06:18 Novolog Vial Sliding Scale - SQ Not Given ACHS [facility] Protocol Lorazepam 0.5 mg 08/07/19 10:03 Ativan Injection - IVPUSH Q8H PRN ANXIETY Prochlorperazine Edisylate 2.5 mg 08/05/19 04:03 Compazine Injection - IVPB Q4H PRN NAUSEA AND/OR VOMITING Simethicone 80 mg 08/05/19 04:03 Mylicon Liquid - PO QID PRN GAS Tamsulosin HCl 0.4 mg 08/04/19 15:30 08/07/19 09:37 Flomax - PO 0.4 mg 0830 [facility] Administration Thiamine HCl 200 mg 08/05/19 10:00 08/07/19 09:38 Vitamin B1 Injection - IVPB 200 mg DAILY [facility]ER[facility] Administration Topiramate 50 mg 08/04/19 22:00 08/07/19 09:40 Topamax - PO 50 mg BID SIERRA Administration Home Medications Medication Instructions Recorded Folic Acid - 1 mg PO DAILY #0 tablet 12/19/12 Multivitamins [Multivit ([facility] 1 udtab PO DAILY #0 tab 12/19/12 Formulary)] Tamsulosin HCl 0.4 mg PO DAILY 11/24/15 Carvedilol [Coreg -] 25 mg PO BID #60 tablet 10/25/16 Lancets/Blood Glucose Strips [Fora 1 each AC #90 combo..pkg 05/07/17 [id number] Strp-Lnct] Atorvastatin Ca [Lipitor] 10 mg PO HS 07/24/18 Famotidine [Pepcid] 40 mg PO DAILY 02/16/19 Multivitamin [One-Daily 1 each PO DAILY 02/16/19 Multi-Vitamin] Topiramate [Topamax] 50 mg PO BID 02/16/19 Aspirin Coated [Ecotrin -] 81 mg PO DAILY #30 tablet.ec 02/19/19 Insulin Glargine,Hum.rec.anlog 5 unit SQ AM 30 Days #1 5ml 02/19/19 [Basaglar Kwikpen U-100] ASSESSMENT AND PLAN: 54 year old male with history of DM 2, HTN, Alcohol excess, CAD s/p PCI/stents, HLD, presented with epigastric pain, anorexia, and vomiting, found to have acute pancreatitis. 1. Acute Pancreatitis with SIRS - secondary to alcohol excess. Temperatures spiked again. WBC 13 CT A/P - consistent with pancreatitis. Repeat CT confirms pancreatitis - no cyst /abscess/necrosis. MRCP (without contrast) - Pancreatitis, fatty liver, no biliary or pancreatic ductal dilation Initial Septic Screen negative. Repeat Blood Cx negative. Repeat Septic Screen pending. Resumed on NPO restriction and IV fluids. GI to re-evaluate. ID consulted - agrees with empiric Meropenem. 2. DM 2 with Hyperglycemia Continue Levemir and Novolog sliding scale. 3. Hyponatremia - sec to dehydration - resolved. 4. Hypokalemia/hypophosphatemia - repleted. 5. Hypophosphatemia - repleted. 6. Elevated Transaminases sec to Alcoholic hepatitis - improved. MRCP shows no biliary obstruction. 7. Hx of alcohol Abuse - continue to monitor for alcohol withdrawal. Ativan PRN. Continue Thiamine/Folate/MVI. 8. BPH - resumed on Tamsulosin. 9. CAD s/p PCI/Stent - on Aspirin, Coreg. Statin held due to elevated LFTs, now resolved. 10. BEVERLY - resolved with IV fluids. 11. On Topamax at home - reason unclear. Resumed. Attempts to get collateral Hx or Hx from PCP unsuccessful so far. 12. HTN - Continue Coreg. DVT Px - Heparin SQ Visit type - Emergency Visit Emergency Visit: Yes ED Registration Date: 07/29/19 Care time: The patient presented to the Emergency Department on the above date and was hospitalized for further evaluation of their emergent condition. - New Patient This patient is new to me today: No - Critical Care Critical Care patient: No - Discharge Referral Referred to [facility] Med P.C.: No
--- NOTE | 2019-08-07 14:09 | PN.GI ---
GI Progress Note Subjective: Patient upset. He states that he wants to go home Had temp 102.6 yesterday afternoon with temp 100.2 this morning No abdominal pain Recent CT scan revealed acute pancreatitis changes without necrosis / fluid collections - Objective Vital Signs: Vital Signs Temperature 98.2 F 08/07/19 09:57 Pulse Rate 80 08/07/19 09:57 Respiratory Rate 18 08/07/19 09:57 Blood Pressure 177/96 H 08/07/19 09:57 O2 Sat by Pulse Oximetry (%) 99 08/06/19 21:00 Constitutional: Calm Eyes: No: Sclera Icterus Cardiovascular: Yes: Regular Rate and Rhythm Respiratory: Yes: Diminished (at bases bilaterally) Gastrointestinal Inspection: Yes: Other (protuberant abdomen) ...Auscultate: Yes: Normoactive Bowel Sounds ...Palpate: Yes: Hepatomegaly, Soft, Tenderness (slight TTP mid abdomen). No: Guarding, Tenderness, Rebound Edema: No (No LE edema) Neurological: Yes: Alert Labs: CBC, BMP 08/07/19 06:45 08/07/19 06:45 INR, PTT INR 1.31 (0.83-1.09) H 07/30/19 08:00 Hepatic Panel Total Bilirubin 0.9 mg/dL (0.2-1) 08/07/19 06:45 AST 29 U/L (15-37) 08/07/19 06:45 ALT 20 U/L (13-61) 08/07/19 06:45 Alkaline Phosphatase 92 U/L (45-117) 08/07/19 06:45 Albumin 2.0 g/dl (3.4-5.0) L 08/07/19 06:45 Problem List - Problems (1) Pancreatitis, alcoholic, acute Assessment/Plan: Most recent CT scan with pancreatic protocol from 08/04 revealed acute interstitial pancreatitis changes without evidence of necrosis that would warrant attempt at CT guided aspiration to exclude infected necrosis and there has been no clinical deterioration. Minimal mid abdominal tenderness noted on physical exam today, unchanged from previous and leukocytosis is downtrending. Unclear if continued fevers are from residual pancreatitis, progression of his pancreatitis or from alternate etiologies. Advise further work-up for alternate causes of fevers. Ordered CXR PA/Lat. ID is following Monitor CBC If worsening leukocytosis, abdominal pain, persistent fevers with unclear source. repeat CT scan of the abdomen with pancreatic protocol as imaging findings can lag behind further clinical progression of pancreatitis Mr. Zuleta is frustrated and explained that he wanted to go home. I did explain to him that acute pancreatitis can lead to a prolonged medical course and that complications can arise along the way. I advised that he stay until fevers have resolved / been further evaluated and that we know that his pancreatitis has simmered down. I explained that the palacios way of preventing further episodes of pancreatitis and further complications of his current episode is that he completely abstain from alcohol. As we discussed earlier in his admission, I explained that complications of and further episodes of pancreatitis can be life threatening. Resume PO with full liquids Discussed plan with Dr. Warren Code(s): K85.20 - ALCOHOL INDUCED ACUTE PANCREATITIS WITHOUT NECROSIS OR INFCT
[2019-08-07] MEDS: LACTATED RINGERS SOLUTION 1,000 ML/1,000 ML INFUS.BAG IV SCH ×2 (14:50→21:49)
[2019-08-07 15:30] LABS: HEMATOCRIT 32.8 % (35.4-49); HEMOGLOBIN 11.1 GM/dL (11.7-16.9); MCH 31.2 pg (25.7-33.7); MCHC 33.8 g/dl (32.0-35.9); MEAN CELL VOLUME 92.4 fl (80-96); MEAN PLT VOLUME 7.5 fl (7.5-11.1); PLATELET COUNT 675 K/MM3 (134-434); RBC 3.56 M/mm3 (4.00-5.60); RDW 16.9 % (11.9-15.9)
[2019-08-08] MEDS ORDERED: MEROPENEM 1 GM VIAL (RESTRICTED TO ID) IVPB ONE ×3 (01:41→16:53)
[2019-08-08] MEDS ORDERED: DEXTROSE 5%-WATER 100 ML IVPB ONE ×3 (01:41→16:53)
[2019-08-08] MEDS: MEROPENEM 1 GM in DEXTROSE 5%-WATER 100 ML IVPB SCH ×3 (01:47→17:00)
[2019-08-08] MEDS: LACTATED RINGERS SOLUTION 1,000 ML/1,000 ML INFUS.BAG IV SCH ×3 (06:09→18:10)
[2019-08-08] MEDS: HEPARIN NA (PORCINE) 5,000 UNITS/ML 1ML VIAL SQ SCH ×3 (06:09→22:13)
[2019-08-08] MEDS: INSULIN SLIDING SCALE (NOVOLOG) 1 VIAL SQ SCH ×4 (07:24→22:17)
[2019-08-08 10:36] LABS: BASO % 0.7 % (0-2.0); EOS % 0.5 % (0-4.5); HEMATOCRIT 35.6 % (35.4-49); LYMPH % 10.1 % (8-40); MCH 31.3 pg (25.7-33.7); MCHC 33.9 g/dl (32.0-35.9); MEAN CELL VOLUME 92.5 fl (80-96); MEAN PLT VOLUME 7.5 fl (7.5-11.1); MONO % 8.5 % (3.8-10.2); NEUT % 80.2 % (42.8-82.8); PLATELET COUNT 780 K/MM3 (134-434); RBC 3.84 M/mm3 (4.00-5.60); RDW 16.7 % (11.9-15.9); WHITE BLOOD COUNT 14.4 K/mm3 (4.0-10.0)
[2019-08-08 11:15] LABS: ALBUMIN 2.2 g/dl (3.4-5.0); BLOOD UREA NITROGEN 4.5 mg/dL (7-18); CREATININE 0.6 mg/dL (0.55-1.3); POTASSIUM 5.3 mmol/L (3.5-5.1); TOT PROT 6.3 g/dl (6.4-8.2)
[2019-08-08] MEDS: CARVEDILOL 25 MG TABLET (FP) PO SCH ×2 (11:21→22:13)
[2019-08-08] MEDS: FOLIC ACID 1 MG TABLET (FP) PO SCH (11:21)
[2019-08-08] MEDS: THIAMINE HCL 200 MG/2 ML VIAL IVPB SCH (11:22)
[2019-08-08] MEDS: ASPIRIN COATED 81 MG TABLET.EC PO SCH (11:22)
[2019-08-08] MEDS: TAMSULOSIN HCL 0.4 MG CAP PO SCH (11:22)
[2019-08-08 11:30] LABS: ANISOCYTOSIS 0; MACROCYTOSIS 0; PLATELET ESTIMATE INCREASED
[2019-08-08] MEDS: TOPIRAMATE 25 MG TABLET (FP) PO SCH ×2 (11:42→22:13)
--- NOTE | 2019-08-08 13:41 | PN ---
Physical Exam: SUBJECTIVE: Patient seen and examined. He reports sharp, diffuse abdominal pain 2/10 that does not worsen with palpation. He denies n/v/d. Tolerating liquids. OBJECTIVE: Vital Signs Period Temp Pulse Resp BP Sys/Mccoy Pulse Ox Last 24 Hr 98 F-100.7 F 77-98 17-20 148-182/78-98 98-99 GENERAL: The patient is awake, alert, and fully oriented, in no acute distress. HEAD: Normal with no signs of trauma. EYES: PERRL, extraocular movements intact, sclera mildly icteric. conjunctiva clear. No ptosis. ENT: Ears normal, nares patent, oropharynx clear without exudates, moist mucous membranes. NECK: Trachea midline, full range of motion, supple. LUNGS: Crackles at both lung bases, no accessory muscle use. HEART: Regular rate and rhythm, S1, S2 without murmur, rub or gallop. ABDOMEN: Distended, mild tenderness on palpation, normoactive bowel sounds, no guarding EXTREMITIES: 2+ pulses, warm, well-perfused, no edema. NEUROLOGICAL: Cranial nerves II through XII grossly intact. Normal speech, gait not observed. PSYCH: Normal mood, normal affect. SKIN: Warm, dry, normal turgor, no rashes or lesions noted Laboratory Results - last 24 hr 08/07/19 08/07/19 08/07/19 14:40 17:08 21:32 WBC 14.0 H RBC 3.56 L Hgb 11.1 L Hct 32.8 L MCV 92.4 MCH 31.2 MCHC 33.8 RDW 16.9 H Plt Count 675 H MPV 7.5 Absolute Neuts (auto) Neutrophils % Neutrophils % (Manual) Band Neutrophils % Lymphocytes % Lymphocytes % (Manual) Monocytes % Monocytes % (Manual) Eosinophils % Eosinophils % (Manual) Basophils % Basophils % (Manual) Myelocytes % (Man) Promyelocytes % (Man) Blast Cells % (Manual) Nucleated RBC % Metamyelocytes Hypochromia Platelet Estimate Polychromasia Poikilocytosis Anisocytosis Microcytosis Macrocytosis Sodium Potassium Chloride Carbon Dioxide Anion Gap BUN Creatinine Est GFR (CKD-EPI)AfAm Est GFR (CKD-EPI)NonAf POC Glucometer 144 170 Random Glucose Calcium Total Bilirubin AST ALT Alkaline Phosphatase Total Protein Albumin 08/08/19 08/08/19 08/08/19 06:18 09:55 09:55 WBC 14.4 H RBC 3.84 L Hgb 12.0 Hct 35.6 MCV 92.5 MCH 31.3 MCHC 33.9 RDW 16.7 H Plt Count 780 H MPV 7.5 Absolute Neuts (auto) 11.6 H Neutrophils % 80.2 Neutrophils % (Manual) 78.4 Band Neutrophils % 0.0 Lymphocytes % 10.1 D Lymphocytes % (Manual) 10.8 D Monocytes % 8.5 Monocytes % (Manual) 8 Eosinophils % 0.5 Eosinophils % (Manual) 2.0 D Basophils % 0.7 Basophils % (Manual) 1.0 D Myelocytes % (Man) 0 Promyelocytes % (Man) 0 Blast Cells % (Manual) 0 D Nucleated RBC % 0 Metamyelocytes 0 Hypochromia 0 Platelet Estimate Increased Polychromasia 0 Poikilocytosis 0 Anisocytosis 0 Microcytosis 0 Macrocytosis 0 Sodium 132 L Potassium 5.3 H Chloride 99 Carbon Dioxide 27 Anion Gap 6 L BUN 4.5 L Creatinine 0.6 Est GFR (CKD-EPI)AfAm 130.27 Est GFR (CKD-EPI)NonAf 112.40 POC Glucometer 137 Random Glucose 175 H Calcium 9.0 Total Bilirubin 1.0 AST 32 ALT 23 Alkaline Phosphatase 173 H Total Protein 6.3 L Albumin 2.2 L 08/08/19 11:34 WBC RBC Hgb Hct MCV MCH MCHC RDW Plt Count MPV Absolute Neuts (auto) Neutrophils % Neutrophils % (Manual) Band Neutrophils % Lymphocytes % Lymphocytes % (Manual) Monocytes % Monocytes % (Manual) Eosinophils % Eosinophils % (Manual) Basophils % Basophils % (Manual) Myelocytes % (Man) Promyelocytes % (Man) Blast Cells % (Manual) Nucleated RBC % Metamyelocytes Hypochromia Platelet Estimate Polychromasia Poikilocytosis Anisocytosis Microcytosis Macrocytosis Sodium Potassium Chloride Carbon Dioxide Anion Gap BUN Creatinine Est GFR (CKD-EPI)AfAm Est GFR (CKD-EPI)NonAf POC Glucometer 164 Random Glucose Calcium Total Bilirubin AST ALT Alkaline Phosphatase Total Protein Albumin Active Medications Generic Name Dose Route Start Last Admin Trade Name Freq PRN Reason Stop Dose Admin Acetaminophen 1,000 mg 08/06/19 15:27 08/07/19 21:48 Ofirmev Injection - IVPB 1,000 mg Q6H PRN Administration FEVER Aspirin 81 mg 08/05/19 10:00 08/08/19 11:22 Ecotrin - PO 81 mg DAILY [facility] Administration Carvedilol 25 mg 08/05/19 10:00 08/08/19 11:21 Coreg - PO 25 mg BID [facility]ER[facility] Administration Folic Acid 1 mg 08/04/19 15:30 08/08/19 11:21 Folic Acid - PO 1 mg DAILY [facility] Administration Heparin Sodium (Porcine) 5,000 unit 08/05/19 06:00 08/08/19 06:09 Heparin - SQ 5,000 unit TID [facility]ER[facility] Administration Meropenem 1 gm/ Dextrose 100 mls @ 200 mls/hr 08/06/19 15:33 08/08/19 11:20 IVPB 200 mls/hr Q8H-IV [facility] Administration Lactated Ringer's 1,000 ml in 1,000 mls @ 75 mls/hr 08/08/19 04:58 08/08/19 06:09 Lactated Ringers Solution IV Not Given ASDIR [facility] Insulin Aspart 1 vial 08/05/19 07:00 08/08/19 11:35 Novolog Vial Sliding Scale - SQ 2 units ACHS [facility]ER[facility] Administration Protocol Lorazepam 0.5 mg 08/07/19 10:03 Ativan Injection - IVPUSH Q8H PRN ANXIETY Prochlorperazine Edisylate 2.5 mg 08/05/19 04:03 Compazine Injection - IVPB Q4H PRN NAUSEA AND/OR VOMITING Simethicone 80 mg 08/05/19 04:03 Mylicon Liquid - PO QID PRN GAS Tamsulosin HCl 0.4 mg 08/04/19 15:30 08/08/19 11:22 Flomax - PO 0.4 mg 0830 [facility] Administration Thiamine HCl 200 mg 08/05/19 10:00 08/08/19 11:22 Vitamin B1 Injection - IVPB 200 mg DAILY [facility]ER[facility] Administration Topiramate 50 mg 08/04/19 22:00 08/08/19 11:42 Topamax - PO 50 mg BID SIERRA Administration ASSESSMENT/PLAN: Mr. Knowles is a 54 y/o male with IDDM, HTN, HLD, CAD s/p PCI, pancreatitis, cholecystitis, gastritis, liver cirrhosis, and alcohol use disorder who presents with abdominal pain x 10 days. He was found to have BG of 483. #acute pancreatitis 2/2 ETOH use Pt tender on palpation. CT showed inflammatory changes around pancreas and in RUQ are increased from 08/04/19 without evidence of abscess or pseudocyst. Subcutaneous edema is improved. Small pleural effusions noted. Crackles on exam. Tmax 100.8. WBC 14.4 -liquid diet -decreased fluids to LR 50mL/hr -CMP #SIRS Tmax 100.8. WBC 14.4. Fever and leukocytosis varies daily. -blood cultures pending, negative so far -meropenem day 3, empirically treating #normocytic anemia Hb 12.0. Recent. Asymptomatic -will monitor #thrombocytosis, possibly 2/2 infection vs less likely anemia Plt 780. Increasing. -monitor, consider workup if >1,000 #hypokalemia, resolved 5.3 today. -recheck tomorrow #hypophosphatemia, resolved #hypomagnesemia, resolved #transaminitis, reactive vs ETOH use, Alk phos 173. U/S fatty infiltration of liver -monitor #anion gap metabolic acidosis, resolved anion gap closed, initially 21 on presentation with BG 483. Possible DKA component vs ketosis from anorexia #BEVERLY, resolved Cr 0.5. likely pre-renal from dehydration -continue hydration #DM 100s today -SSI -BGM #alcohol use disorder Pt has not had drink in 7 days prior to admission. Unlikely to have withdrawal seizure, CIWA ~4 at admission -ativan PRN -supplement thiamine, folate, MV #medication non-compliance Called pt's pharmacy and scripts have not been picked up since April. PCP provided by pt has not been seen in 2 years per PCP's office. Pt's med list included Topamax. Began tx to avoid any possible seizures, especially given ETOH use disorder. FEN LR 50mL/hr monitor K, phos, Mg liquid diet DVT Prophylaxis herparin dispo med/surg floor Visit type - Emergency Visit Emergency Visit: Yes ED Registration Date: 07/29/19 Care time: The patient presented to the Emergency Department on the above date and was hospitalized for further evaluation of their emergent condition. - New Patient This patient is new to me today: No - Critical Care Critical Care patient: No - Discharge Referral Referred to [facility] Med P.C.: No ATTENDING PHYSICIAN STATEMENT I saw and evaluated the patient. I reviewed the resident's note and discussed the case with the resident. I agree with the resident's findings and plan as documented. SUBJECTIVE: OBJECTIVE: ASSESSMENT AND PLAN:
--- NOTE | 2019-08-08 14:02 | PN ---
Progress Note (short form) - Note Progress Note: GI f/u Patient w persistent fever. had another CT without any pseudocyst or necrosis. He does report 3 episodes of watery diarrhea yesterday and today Vital Signs Temp 100.7 F H 08/08/19 10:00 Pulse 98 H 08/08/19 10:00 Resp 20 08/08/19 10:00 BP 155/80 08/08/19 10:00 Pulse Ox 99 08/08/19 09:00 NAD Anicteric soft NT mildly distended CBC, BMP 08/08/19 09:55 08/08/19 09:55 CT A/P report reviewed, no interval significant changes Impression: ETOH pancreatitis, with fever, WBC count, thrombocytosis. Pt reports diarrhea now, so would check C. diff. Can advance diet
[2019-08-08] MEDS: ACETAMINOPHEN 1000 MG/100 ML VIAL (NON FORMULARY) IVPB PRN (16:56)
--- NOTE | 2019-08-08 18:06 | PN ---
Teaching Attending Note Name of Resident: Adele Chavez ATTENDING PHYSICIAN STATEMENT I saw and evaluated the patient. I reviewed the resident's note and discussed the case with the resident. I agree with the resident's findings and plan as documented. SUBJECTIVE: Ongoing epigastric/RUQ abdominal discomfort. Diarrhea x 2. Still having fever. No nausea/vomiting. OBJECTIVE: Tmax 100.7. Hemodynamically Stable. Last Vital Signs Temp Pulse Resp BP Pulse Ox 100.8 F H 84 18 145/84 99 08/08/19 16:30 08/08/19 16:30 08/08/19 16:30 08/08/19 16:30 08/08/19 09:00 Heart - S1, S2, RRR Lungs - decreased air entry at bases Abdomen - Distended, high BMI, Epigastric tenderness. Bowel Sounds normal. Extremities - Edema +. No calf tenderness. Neuro - AAO x 3. No Tremor. Tone/Power normal all extremities. Laboratory Results - last 24 hr 08/07/19 08/08/19 08/08/19 21:32 06:18 09:55 WBC 14.4 H RBC 3.84 L Hgb 12.0 Hct 35.6 MCV 92.5 MCH 31.3 MCHC 33.9 RDW 16.7 H Plt Count 780 H MPV 7.5 Absolute Neuts (auto) 11.6 H Neutrophils % 80.2 Neutrophils % (Manual) 78.4 Band Neutrophils % 0.0 Lymphocytes % 10.1 D Lymphocytes % (Manual) 10.8 D Monocytes % 8.5 Monocytes % (Manual) 8 Eosinophils % 0.5 Eosinophils % (Manual) 2.0 D Basophils % 0.7 Basophils % (Manual) 1.0 D Myelocytes % (Man) 0 Promyelocytes % (Man) 0 Blast Cells % (Manual) 0 D Nucleated RBC % 0 Metamyelocytes 0 Hypochromia 0 Platelet Estimate Increased Polychromasia 0 Poikilocytosis 0 Anisocytosis 0 Microcytosis 0 Macrocytosis 0 Sodium Potassium Chloride Carbon Dioxide Anion Gap BUN Creatinine Est GFR (CKD-EPI)AfAm Est GFR (CKD-EPI)NonAf POC Glucometer 170 137 Random Glucose Calcium Total Bilirubin AST ALT Alkaline Phosphatase Total Protein Albumin 08/08/19 08/08/19 08/08/19 09:55 11:34 17:26 WBC RBC Hgb Hct MCV MCH MCHC RDW Plt Count MPV Absolute Neuts (auto) Neutrophils % Neutrophils % (Manual) Band Neutrophils % Lymphocytes % Lymphocytes % (Manual) Monocytes % Monocytes % (Manual) Eosinophils % Eosinophils % (Manual) Basophils % Basophils % (Manual) Myelocytes % (Man) Promyelocytes % (Man) Blast Cells % (Manual) Nucleated RBC % Metamyelocytes Hypochromia Platelet Estimate Polychromasia Poikilocytosis Anisocytosis Microcytosis Macrocytosis Sodium 132 L Potassium 5.3 H Chloride 99 Carbon Dioxide 27 Anion Gap 6 L BUN 4.5 L Creatinine 0.6 Est GFR (CKD-EPI)AfAm 130.27 Est GFR (CKD-EPI)NonAf 112.40 POC Glucometer 164 166 Random Glucose 175 H Calcium 9.0 Total Bilirubin 1.0 AST 32 ALT 23 Alkaline Phosphatase 173 H Total Protein 6.3 L Albumin 2.2 L Current Medications Generic Name Dose Route Start Last Admin Trade Name Freq PRN Reason Stop Dose Admin Aspirin 81 mg 08/05/19 10:00 08/08/19 11:22 Ecotrin - PO 81 mg DAILY SIERRA Administration Carvedilol 25 mg 08/05/19 10:00 08/08/19 11:21 Coreg - PO 25 mg BID SIERRA Administration Folic Acid 1 mg 08/04/19 15:30 08/08/19 11:21 Folic Acid - PO 1 mg DAILY SIERRA Administration Heparin Sodium (Porcine) 5,000 unit 08/05/19 06:00 08/08/19 14:44 Heparin - SQ 5,000 unit TID SIERRA Administration Meropenem 1 gm/ Dextrose 100 mls @ 200 mls/hr 08/06/19 15:33 08/08/19 17:00 IVPB 200 mls/hr Q8H-IV SIERRA Administration Lactated Ringer's 1,000 ml in 1,000 mls @ 75 mls/hr 08/08/19 04:58 08/08/19 16:58 Lactated Ringers Solution IV 75 mls/hr ASDIR SIERRA Administration Insulin Aspart 1 vial 08/05/19 07:00 08/08/19 17:28 Novolog Vial Sliding Scale - SQ 2 units ACHS SIERRA Administration Protocol Lorazepam 0.5 mg 08/07/19 10:03 Ativan Injection - IVPUSH Q8H PRN ANXIETY Prochlorperazine Edisylate 2.5 mg 08/05/19 04:03 Compazine Injection - IVPB Q4H PRN NAUSEA AND/OR VOMITING Simethicone 80 mg 08/05/19 04:03 Mylicon Liquid - PO QID PRN GAS Tamsulosin HCl 0.4 mg 08/04/19 15:30 08/08/19 11:22 Flomax - PO 0.4 mg 0830 SIERRA Administration Thiamine HCl 200 mg 08/05/19 10:00 08/08/19 11:22 Vitamin B1 Injection - IVPB 200 mg DAILY SIERRA Administration Topiramate 50 mg 08/04/19 22:00 08/08/19 11:42 Topamax - PO 50 mg BID SIERRA Administration Home Medications Medication Instructions Recorded Folic Acid - 1 mg PO DAILY #0 tablet 12/19/12 Multivitamins [Multivit ([facility] 1 udtab PO DAILY #0 tab 12/19/12 Formulary)] Tamsulosin HCl 0.4 mg PO DAILY 11/24/15 Carvedilol [Coreg -] 25 mg PO BID #60 tablet 10/25/16 Lancets/Blood Glucose Strips [Fora 1 each AC #90 combo..pkg 05/07/17 [id number] Strp-Lnct] Atorvastatin Ca [Lipitor] 10 mg PO HS 07/24/18 Famotidine [Pepcid] 40 mg PO DAILY 02/16/19 Multivitamin [One-Daily 1 each PO DAILY 02/16/19 Multi-Vitamin] Topiramate [Topamax] 50 mg PO BID 02/16/19 Aspirin Coated [Ecotrin -] 81 mg PO DAILY #30 tablet.ec 02/19/19 Insulin Glargine,Hum.rec.anlog 5 unit SQ AM 30 Days #1 5ml 02/19/19 [Basaglar Kwikpen U-100] ASSESSMENT AND PLAN: 54 year old male with history of DM 2, HTN, Alcohol excess, CAD s/p PCI/stents, HLD, presented with epigastric pain, anorexia, and vomiting, found to have acute pancreatitis. 1. Acute Pancreatitis with SIRS - secondary to alcohol excess. Continues to spike temperatures. WBC 14 CT A/P - consistent with pancreatitis. Repeat CT x 2 confirms pancreatitis - no cyst/abscess/necrosis. MRCP (without contrast) - Pancreatitis, fatty liver, no biliary or pancreatic ductal dilation Initial/repeat Septic Screen negative. Repeat Blood Cx negative. Stool Cdiff negative. Feeds resumed. Bibasal effusions on CT - will reduce IV fluid rate to 50ml/hr. No respiratory compromise. GI following. ID consulted - on empiric Meropenem. 2. DM 2 with Hyperglycemia Continue Levemir and Novolog sliding scale. 3. Hyponatremia - sec to dehydration - resolved. 4. Hypophosphatemia - repleted. 5. Hyperkalemia - will repeat K level. 6. Elevated Transaminases sec to Alcoholic hepatitis - improved. MRCP shows no biliary obstruction. 7. Hx of alcohol Abuse - continue to monitor for alcohol withdrawal. Ativan PRN. Continue Thiamine/Folate/MVI. 8. BPH - resumed on Tamsulosin. 9. CAD s/p PCI/Stent - on Aspirin, Coreg. Statin held due to elevated LFTs, now resolved. 10. BEVERLY - resolved with IV fluids. 11. On Topamax at home - reason unclear. Resumed. Attempts to get collateral Hx or Hx from PCP unsuccessful so far. 12. HTN - Continue Coreg. 13. Reports history of blurry vision on waking in AM, sees out-patient nutrition services assistant, symptoms apparently worse over past 3 days. No visual disturbance at the time of my exam. CT head performed shows microvascular changes, no acute intracranial findings. DVT Px - Heparin SQ
[2019-08-09] MEDS: MEROPENEM 1 GM in DEXTROSE 5%-WATER 100 ML IVPB SCH ×2 (03:00→10:27)
[2019-08-09] MEDS ORDERED: MEROPENEM 1 GM VIAL (RESTRICTED TO ID) IVPB ONE ×2 (03:07→08:02)
[2019-08-09] MEDS ORDERED: DEXTROSE 5%-WATER 100 ML IVPB ONE ×2 (03:07→08:02)
[2019-08-09] MEDS ORDERED: INSULIN (NOVOLOG) ASPART 100 UNITS/ML 10ML VIAL ONE ×5 (05:15→20:31)
[2019-08-09] MEDS: HEPARIN NA (PORCINE) 5,000 UNITS/ML 1ML VIAL SQ SCH ×3 (06:15→21:58)
[2019-08-09] MEDS: INSULIN SLIDING SCALE (NOVOLOG) 1 VIAL SQ SCH ×4 (06:16→21:57)
[2019-08-09 07:52] LABS: EOS % 0.7 % (0-4.5); HEMATOCRIT 33.4 % (35.4-49); HEMOGLOBIN 11.4 GM/dL (11.7-16.9); LYMPH % 15.1 % (8-40); MCH 31.6 pg (25.7-33.7); MCHC 34.2 g/dl (32.0-35.9); MEAN CELL VOLUME 92.4 fl (80-96); MEAN PLT VOLUME 7.5 fl (7.5-11.1); MONO % 8.4 % (3.8-10.2); NEUT % 74.8 % (42.8-82.8); PLATELET COUNT 744 K/MM3 (134-434); RBC 3.61 M/mm3 (4.00-5.60); RDW 16.6 % (11.9-15.9); WHITE BLOOD COUNT 13.2 K/mm3 (4.0-10.0)
[2019-08-09 08:37] LABS: ALBUMIN 2.2 g/dl (3.4-5.0); BILIRUBIN,TOTAL 0.8 mg/dL (0.2-1); BLOOD UREA NITROGEN 4.4 mg/dL (7-18); CALCIUM 8.6 mg/dL (8.5-10.1); CREATININE 0.5 mg/dL (0.55-1.3); MAGNESIUM 1.9 mg/dL (1.8-2.4); PHOSPHOROUS 3.5 mg/dL (2.5-4.9); POTASSIUM 4.5 mmol/L (3.5-5.1); TOT PROT 6.1 g/dl (6.4-8.2)
[2019-08-09] MEDS: THIAMINE HCL 200 MG/2 ML VIAL IVPB SCH (10:28)
[2019-08-09] MEDS: ASPIRIN COATED 81 MG TABLET.EC PO SCH (10:28)
[2019-08-09] MEDS: FOLIC ACID 1 MG TABLET (FP) PO SCH (10:28)
[2019-08-09] MEDS: TOPIRAMATE 25 MG TABLET (FP) PO SCH ×2 (10:28→21:58)
[2019-08-09] MEDS: CARVEDILOL 25 MG TABLET (FP) PO SCH ×2 (10:28→21:58)
[2019-08-09] MEDS: TAMSULOSIN HCL 0.4 MG CAP PO SCH (10:28)
--- NOTE | 2019-08-09 12:10 | PN ---
Physical Exam: SUBJECTIVE: Patient seen and examined. He denies abdominal pain, n/v/d. Tolerating diet. OBJECTIVE: Vital Signs Period Temp Pulse Resp BP Sys/Mccoy Pulse Ox Last 24 Hr 98.8 F-100.8 F 80-88 18-20 138-149/74-87 97-100 GENERAL: The patient is awake, alert, and fully oriented, in no acute distress. HEAD: Normal with no signs of trauma. EYES: PERRL, extraocular movements intact, sclera mildly icteric. conjunctiva clear. No ptosis. ENT: Ears normal, nares patent, oropharynx clear without exudates, moist mucous membranes. NECK: Trachea midline, full range of motion, supple. LUNGS: Crackles at both lung bases, no accessory muscle use. HEART: Regular rate and rhythm, S1, S2 without murmur, rub or gallop. ABDOMEN: Distended, mild tenderness on palpation, normoactive bowel sounds, no guarding EXTREMITIES: 2+ pulses, warm, well-perfused, no edema. NEUROLOGICAL: Cranial nerves II through XII grossly intact. Normal speech, gait not observed. PSYCH: Normal mood, normal affect. SKIN: Warm, dry, normal turgor, no rashes or lesions noted Laboratory Results - last 24 hr 08/08/19 08/08/19 08/08/19 17:26 21:00 22:16 WBC RBC Hgb Hct MCV MCH MCHC RDW Plt Count MPV Absolute Neuts (auto) Neutrophils % Lymphocytes % Monocytes % Eosinophils % Basophils % Nucleated RBC % Sodium Potassium 4.6 Chloride Carbon Dioxide Anion Gap BUN Creatinine Est GFR (CKD-EPI)AfAm Est GFR (CKD-EPI)NonAf POC Glucometer 166 153 Random Glucose Calcium Phosphorus Magnesium Total Bilirubin AST ALT Alkaline Phosphatase Total Protein Albumin Lipase 08/09/19 08/09/19 08/09/19 06:12 06:45 06:45 WBC 13.2 H RBC 3.61 L Hgb 11.4 L Hct 33.4 L MCV 92.4 MCH 31.6 MCHC 34.2 RDW 16.6 H Plt Count 744 H MPV 7.5 Absolute Neuts (auto) 9.9 H Neutrophils % 74.8 Lymphocytes % 15.1 D Monocytes % 8.4 Eosinophils % 0.7 Basophils % 1.0 Nucleated RBC % 0 Sodium 133 L Potassium 4.5 Chloride 101 Carbon Dioxide 26 Anion Gap 6 L BUN 4.4 L Creatinine 0.5 L Est GFR (CKD-EPI)AfAm 140.40 Est GFR (CKD-EPI)NonAf 121.14 POC Glucometer 164 Random Glucose 142 H Calcium 8.6 Phosphorus 3.5 Magnesium 1.9 Total Bilirubin 0.8 AST 37 ALT 27 Alkaline Phosphatase 100 Total Protein 6.1 L Albumin 2.2 L Lipase 368 08/09/19 11:31 WBC RBC Hgb Hct MCV MCH MCHC RDW Plt Count MPV Absolute Neuts (auto) Neutrophils % Lymphocytes % Monocytes % Eosinophils % Basophils % Nucleated RBC % Sodium Potassium Chloride Carbon Dioxide Anion Gap BUN Creatinine Est GFR (CKD-EPI)AfAm Est GFR (CKD-EPI)NonAf POC Glucometer 196 Random Glucose Calcium Phosphorus Magnesium Total Bilirubin AST ALT Alkaline Phosphatase Total Protein Albumin Lipase Active Medications Generic Name Dose Route Start Last Admin Trade Name Freq PRN Reason Stop Dose Admin Aspirin 81 mg 08/05/19 10:00 08/09/19 10:28 Ecotrin - PO 81 mg DAILY SIERRA Administration Carvedilol 25 mg 08/05/19 10:00 08/09/19 10:28 Coreg - PO 25 mg BID SIERRA Administration Folic Acid 1 mg 08/04/19 15:30 08/09/19 10:28 Folic Acid - PO 1 mg DAILY SIERRA Administration Heparin Sodium (Porcine) 5,000 unit 08/05/19 06:00 08/09/19 06:15 Heparin - SQ 5,000 unit TID SIERRA Administration Meropenem 1 gm/ Dextrose 100 mls @ 200 mls/hr 08/06/19 15:33 08/09/19 10:27 IVPB 200 mls/hr Q8H-IV SIERRA Administration Lactated Ringer's 1,000 ml in 1,000 mls @ 50 mls/hr 08/08/19 18:07 08/08/19 18:10 Lactated Ringers Solution IV 50 mls/hr ASDIR SIERRA Administration Insulin Aspart 1 vial 08/05/19 07:00 08/09/19 06:16 Novolog Vial Sliding Scale - SQ 2 units ACHS SIERRA Administration Protocol Lorazepam 0.5 mg 08/07/19 10:03 Ativan Injection - IVPUSH Q8H PRN ANXIETY Prochlorperazine Edisylate 2.5 mg 08/05/19 04:03 Compazine Injection - IVPB Q4H PRN NAUSEA AND/OR VOMITING Simethicone 80 mg 08/05/19 04:03 08/09/19 10:26 Mylicon Liquid - PO 80 mg QID PRN Administration GAS Tamsulosin HCl 0.4 mg 08/04/19 15:30 08/09/19 10:28 Flomax - PO 0.4 mg 0830 SIERRA Administration Thiamine HCl 200 mg 08/05/19 10:00 08/09/19 10:28 Vitamin B1 Injection - IVPB 200 mg DAILY SIERRA Administration Topiramate 50 mg 08/04/19 22:00 08/09/19 10:28 Topamax - PO 50 mg BID SIERRA Administration ASSESSMENT/PLAN: Mr. Knowles is a 54 y/o male with IDDM, HTN, HLD, CAD s/p PCI, pancreatitis, cholecystitis, gastritis, liver cirrhosis, and alcohol use disorder who presents with abdominal pain x 10 days. He was found to have BG of 483. #acute pancreatitis 2/2 ETOH use Pt tender on palpation. CT showed inflammatory changes around pancreas and in RUQ are increased from 08/04/19 without evidence of abscess or pseudocyst. Subcutaneous edema is improved. Small pleural effusions noted. Crackles on exam. Afebrile. WBC 11.4. -liquid diet -CMP #SIRS Afebrile and mild leukocytosis. Fever and leukocytosis varies daily. -blood cultures negative #normocytic anemia Hb 11.9. Recent. Asymptomatic -will monitor #thrombocytosis, possibly 2/2 infection vs less likely anemia Plt 780. Increasing. -monitor, consider workup if >1,000 #hypokalemia, resolved -recheck tomorrow #hypophosphatemia, resolved #hypomagnesemia, resolved #transaminitis, reactive vs ETOH use, Alk phos elevated. U/S fatty infiltration of liver -monitor #anion gap metabolic acidosis, resolved anion gap closed, initially 21 on presentation with BG 483. Possible DKA component vs ketosis from anorexia #BEVERLY, resolved Cr 0.5. likely pre-renal from dehydration -continue hydration #DM 100s today -SSI -BGM #alcohol use disorder Pt has not had drink in 7 days prior to admission. Unlikely to have withdrawal seizure, CIWA ~4 at admission -ativan PRN -supplement thiamine, folate, MV #medication non-compliance Called pt's pharmacy and scripts have not been picked up since April. PCP provided by pt has not been seen in 2 years per PCP's office. Pt's med list included Topamax. Began tx to avoid any possible seizures, especially given ETOH use disorder. FEN LR 50mL/hr monitor K, phos, Mg liquid diet DVT Prophylaxis herparin dispo med/surg floor Visit type - Emergency Visit Emergency Visit: Yes ED Registration Date: 07/29/19 Care time: The patient presented to the Emergency Department on the above date and was hospitalized for further evaluation of their emergent condition. - New Patient This patient is new to me today: No - Critical Care Critical Care patient: No - Discharge Referral Referred to [facility] Med P.C.: No ATTENDING PHYSICIAN STATEMENT I saw and evaluated the patient. I reviewed the resident's note and discussed the case with the resident. I agree with the resident's findings and plan as documented. SUBJECTIVE: OBJECTIVE: ASSESSMENT AND PLAN:
--- NOTE | 2019-08-09 14:05 | PN ---
Teaching Attending Note Name of Resident: Adele Chavez ATTENDING PHYSICIAN STATEMENT I saw and evaluated the patient. I reviewed the resident's note and discussed the case with the resident. I agree with the resident's findings and plan as documented. SUBJECTIVE: overall improved. tolerating liquid diet. states last BM yesterday was more solid. denies Cp, SOB, fever, chills, N/V/C OBJECTIVE: Last Vital Signs Temp Pulse Resp BP Pulse Ox 99.3 F 83 20 149/86 97 08/09/19 09:56 08/09/19 09:56 08/09/19 09:56 08/09/19 09:56 08/09/19 09:00 General NAD CV S1 S2 RRR no murmur/rub/gallop Lungs CTA B/L no wheezing/rales/ronchi Abdomen soft NT/ND extremities no pedal edema ASSESSMENT AND PLAN: 54yo M wtih PMH DM, HTN, ETOH cirrhosis, CAD s/p stents and dyslipidemia presented to the ER wtih vomiting and anorexia and found to have acute pancreatitis 1. Acute pancreattitis-likely due to ETOH. repeat CT scan yesterday showing persistent inflammation around the pancreas but no abscess or necrosis. tolerating liquid diet. MRCP been done. cont IVF pain and nausea control. check ESR/CRP. 2. Hyperglycemia- improved. home dose of levemir has been held. can re-start once tolerating regular diet. 3. SIRS- Tm 100.8, no infectious source identified. developed diarrhea. check for cdiff. could be inflammatory response from severe pancreatitis. on empiric meropenem day 4. will cont to monitor fever curve. ID on board 4. AGMA- likely due to ketosis from anorexia and not DKA. AG now closed. 5. Hyponatremia- due to dehydration. now resolved. corrected Na 135 6. Hypokalemia- KCL in IVF 7. Severe hypophosphatemia- Kphos. repeat later today 8. Pseudohypocalcemia- Corrected Ca 8.2 9. Transaminitis- likley due to ETOH use. resolved 10. thrombocytopenia- due to cirrhosis. no thrombophilic. monitor 11. BEVERLY- due to dehydration. now resolved. 12. Acute ETOH withdrawals- no signs of withdrawal. cont thimine/folate/mvi 13. Prolonged Qtc- monitor medications 14. DVT ppx- Hep sq 15. PT eval
--- NOTE | 2019-08-09 15:15 | PN.GI ---
GI Progress Note Subjective: 1 BM today, soft per patient C. Diff stool study QNS Mild abdominal pain complaints "Now and then" - Objective Vital Signs: Vital Signs Temperature 99.7 F H 08/09/19 14:38 Pulse Rate 83 08/09/19 14:38 Respiratory Rate 20 08/09/19 14:38 Blood Pressure 138/75 08/09/19 14:38 O2 Sat by Pulse Oximetry (%) 97 08/09/19 09:00 Constitutional: Calm Eyes: No: Sclera Icterus Cardiovascular: Yes: Regular Rate and Rhythm Respiratory: Yes: CTA Bilaterally Gastrointestinal Inspection: No: Distention ...Auscultate: Yes: Normoactive Bowel Sounds ...Palpate: Yes: Soft, Tenderness (minimal TTP mid abdomen). No: Guarding, Tenderness, Rebound ...Percussion: No: Tympanitic Edema: No (No LE edema) Neurological: Yes: Alert Labs: CBC, BMP 08/09/19 06:45 08/09/19 06:45 INR, PTT INR 1.31 (0.83-1.09) H 07/30/19 08:00 Hepatic Panel Total Bilirubin 0.8 mg/dL (0.2-1) 08/09/19 06:45 Direct Bilirubin 1.1 mg/dL (0.0-0.2) H 08/03/19 05:25 AST 37 U/L (15-37) 08/09/19 06:45 ALT 27 U/L (13-61) 08/09/19 06:45 Alkaline Phosphatase 100 U/L (45-117) 08/09/19 06:45 Albumin 2.2 g/dl (3.4-5.0) L 08/09/19 06:45 Problem List - Problems (1) Pancreatitis, alcoholic, acute Assessment/Plan: Interstitial alcohol induced pancreatitis Clinically improved No need for empiric antibiotics from pancreatitis standpoint Advance diet No copious diarrhea with one soft BM noted today. D/C Abx and see if it improves ID F/U Code(s): K85.20 - ALCOHOL INDUCED ACUTE PANCREATITIS WITHOUT NECROSIS OR INFCT
[2019-08-09] MEDS ORDERED: PT OWN MED DRAWER 7, Y5N ONE (20:18)
[2019-08-09] MEDS: LACTATED RINGERS SOLUTION 1,000 ML/1,000 ML INFUS.BAG IV SCH (20:23)
[2019-08-10] MEDS ORDERED: INSULIN (NOVOLOG) ASPART 100 UNITS/ML 10ML VIAL ONE ×2 (04:00→06:25)
[2019-08-10] MEDS: HEPARIN NA (PORCINE) 5,000 UNITS/ML 1ML VIAL SQ SCH ×3 (05:44→21:51)
[2019-08-10] MEDS ORDERED: CARVEDILOL 25 MG TABLET (FP) PO ONE (05:52)
[2019-08-10] MEDS: INSULIN SLIDING SCALE (NOVOLOG) 1 VIAL SQ SCH ×4 (06:18→21:49)
[2019-08-10 07:55] LABS: BASO % 1.3 % (0-2.0); HEMATOCRIT 34.6 % (35.4-49); HEMOGLOBIN 11.9 GM/dL (11.7-16.9); LYMPH % 15.8 % (8-40); MCH 31.9 pg (25.7-33.7); MCHC 34.4 g/dl (32.0-35.9); MEAN CELL VOLUME 92.6 fl (80-96); MEAN PLT VOLUME 7.4 fl (7.5-11.1); MONO % 8.1 % (3.8-10.2); NEUT % 73.8 % (42.8-82.8); PLATELET COUNT 805 K/MM3 (134-434); RBC 3.73 M/mm3 (4.00-5.60); RDW 16.1 % (11.9-15.9); WHITE BLOOD COUNT 11.4 K/mm3 (4.0-10.0)
[2019-08-10 08:26] LABS: ALBUMIN 2.2 g/dl (3.4-5.0); BILIRUBIN,TOTAL 0.7 mg/dL (0.2-1); BLOOD UREA NITROGEN 8.2 mg/dL (7-18); CALCIUM 8.8 mg/dL (8.5-10.1); CREATININE 0.6 mg/dL (0.55-1.3); POTASSIUM 4.8 mmol/L (3.5-5.1); TOT PROT 6.6 g/dl (6.4-8.2)
[2019-08-10] MEDS: FOLIC ACID 1 MG TABLET (FP) PO SCH (09:13)
[2019-08-10] MEDS: THIAMINE HCL 200 MG/2 ML VIAL IVPB SCH (09:13)
[2019-08-10] MEDS: TAMSULOSIN HCL 0.4 MG CAP PO SCH (09:13)
[2019-08-10] MEDS: ASPIRIN COATED 81 MG TABLET.EC PO SCH (09:13)
[2019-08-10] MEDS: TOPIRAMATE 25 MG TABLET (FP) PO SCH ×2 (09:14→21:58)
[2019-08-10] MEDS: LISINOPRIL 10 MG TABLET (FP) PO SCH (09:14)
--- NOTE | 2019-08-10 11:20 | DS ---
Physical Exam: SUBJECTIVE: Patient seen and examined. Pt denies abdominal pain, n/v/d, fever, or chills. He is tolerating diet well. OBJECTIVE: Vital Signs Period Temp Pulse Resp BP Sys/Mccoy Pulse Ox Last 24 Hr 99 F-99.9 F 81-93 18-20 138-160/75-97 98 PHYSICAL EXAM GENERAL: The patient is awake, alert, and fully oriented, in no acute distress. HEAD: Normal with no signs of trauma. EYES: PERRL, extraocular movements intact, sclera mildly icteric. conjunctiva clear. No ptosis. ENT: Ears normal, nares patent, oropharynx clear without exudates, moist mucous membranes. NECK: Trachea midline, full range of motion, supple. LUNGS: Crackles at both lung bases, no accessory muscle use. HEART: Regular rate and rhythm, S1, S2 without murmur, rub or gallop. ABDOMEN: Distended, mild tenderness on palpation, normoactive bowel sounds, no guarding EXTREMITIES: 2+ pulses, warm, well-perfused, no edema. NEUROLOGICAL: Cranial nerves II through XII grossly intact. Normal speech, gait not observed. PSYCH: Normal mood, normal affect. SKIN: Warm, dry, normal turgor, no rashes or lesions noted LABS Laboratory Results - last 24 hr 08/09/19 08/09/19 08/09/19 11:31 17:29 21:56 WBC RBC Hgb Hct MCV MCH MCHC RDW Plt Count MPV Absolute Neuts (auto) Neutrophils % Lymphocytes % Monocytes % Eosinophils % Basophils % Nucleated RBC % ESR Sodium Potassium Chloride Carbon Dioxide Anion Gap BUN Creatinine Est GFR (CKD-EPI)AfAm Est GFR (CKD-EPI)NonAf POC Glucometer 196 158 184 Random Glucose Calcium Total Bilirubin AST ALT Alkaline Phosphatase C-Reactive Protein Total Protein Albumin 08/10/19 08/10/19 08/10/19 05:33 07:00 07:00 WBC 11.4 H RBC 3.73 L Hgb 11.9 Hct 34.6 L MCV 92.6 MCH 31.9 MCHC 34.4 RDW 16.1 H Plt Count 805 H MPV 7.4 L Absolute Neuts (auto) 8.4 H Neutrophils % 73.8 Lymphocytes % 15.8 Monocytes % 8.1 Eosinophils % 1.0 Basophils % 1.3 Nucleated RBC % 0 ESR Sodium 133 L Potassium 4.8 Chloride 101 Carbon Dioxide 24 Anion Gap 8 BUN 8.2 Creatinine 0.6 Est GFR (CKD-EPI)AfAm 130.27 Est GFR (CKD-EPI)NonAf 112.40 POC Glucometer 206 Random Glucose 168 H Calcium 8.8 Total Bilirubin 0.7 AST 46 H ALT 36 Alkaline Phosphatase 100 C-Reactive Protein 14.7 H Total Protein 6.6 Albumin 2.2 L 08/10/19 08/10/19 07:00 11:02 WBC RBC Hgb Hct MCV MCH MCHC RDW Plt Count MPV Absolute Neuts (auto) Neutrophils % Lymphocytes % Monocytes % Eosinophils % Basophils % Nucleated RBC % ESR 96 H Sodium Potassium Chloride Carbon Dioxide Anion Gap BUN Creatinine Est GFR (CKD-EPI)AfAm Est GFR (CKD-EPI)NonAf POC Glucometer 202 Random Glucose Calcium Total Bilirubin AST ALT Alkaline Phosphatase C-Reactive Protein Total Protein Albumin HOSPITAL COURSE: Mr. Knowles is a 54y/o male with IDDM, HTN, HLD, CAD s/p PCI, pancreatitis, cholecystitis, gastritis, liver cirrhosis, and alcohol use disorder who presents to the ED with sudden onset of diffuse abdominal pain x 10 days. He was found to have BG of 483 on admission. Pt was given bolus insulin and repletion of potassium. He was admitted to the ICU where fluids, insulin, and potassium were continued. His diet was advanced to clear liquids then pt began having diarrhea. CT abdomen showed pancreatitis but no abscess, necrosis, or pseudocyst. He had intermittent fevers. He was transferred out ICU. Second CT showed inflammation. Diet was advanced and fevers resolved. SNF was offered to pt but refused. He was discharged home. He was given lisinopril on d/c and told to follow up with PCP and GI. Date of Admission:07/29/19 Date of Discharge: 08/10/19 Minutes to complete discharge: 35 Discharge Summary Reason For Visit: ACUTE PANCREATITIS Current Active Problems Chest pain (Acute) Hyperglycemia (Acute) Hypokalemia (Acute) Hyponatremia (Acute) Pancreatitis, acute (Acute) Pancreatitis, alcoholic, acute (Acute) Alcohol abuse (Chronic) Condition: Stable - Instructions Diet, Activity, Other Instructions: Hospital Visit: You were admitted to the hospital due to pancreatitis (inflammation of the pancreas), due to excess alcohol. You were treated with IV fluids, and antibiotics. You are being discharged home with home services. Medications: Continue taking your home medications. You were started on Lisinopril 10mg to take once a day. A prescription is being sent to your pharmacy. Follow up with the physicians: Your primary care doctor in the next week. Dr. Gimenez, the gastroenteroloist, in the next 1-[address] Griffin, with hematology, in the next 2 weeks. Your blood work showed you have a high platelet count in your blood. It is not high enough that it needs to be addressed at the hospital, but you should see a blood doctor (chemical dependency therapist ) in the next 2 weeks. Other Instructions: The pancreatitis you have is caused by alcohol use. It is important that you stop drinking in order to allow your pancreas to heal. Continuing to drink also will put you at risk of having falls, stomach bleeding from gastritis, liver inflammation and cirrhosis, and re-occurrence of pancreatitis. You were offered in patient rehab at [facility] but declined. You should look at Alcoholics Anonymous as a form of outpatient rehab to abstain from alcohol. If you begin having abdominal pain that does not improve or start vomiting again , experience subjective fevers, chills, shortness of breath, chest pain, palpitations, abdominal pain, nausea, vomiting, please go to the nearest emergency room. Referrals: Finn Gimenez DO [Staff Physician] - 2 Weeks Beto Griffin MD [Staff Physician] - 1 Week Disposition: HOME - Home Medications Comprehensive Discharge Medication List: Ambulatory Orders Folic Acid - 1 mg PO DAILY #0 tablet 12/19/12 Multivitamins [Multivit ([facility] Formulary)] 1 udtab PO DAILY #0 tab 12/19/12 Tamsulosin HCl 0.4 mg PO DAILY 11/24/15 Carvedilol [Coreg -] 25 mg PO BID #60 tablet 10/25/16 Lancets/Blood Glucose Strips [Fora [id number] Strp-Lnct] 1 each AC #90 combo..pkg 05/07/17 Atorvastatin Ca [Lipitor] 10 mg PO HS 07/24/18 Famotidine [Pepcid] 40 mg PO DAILY 02/16/19 Multivitamin [One-Daily Multi-Vitamin] 1 each PO DAILY 02/16/19 Topiramate [Topamax] 50 mg PO BID 02/16/19 Aspirin Coated [Ecotrin -] 81 mg PO DAILY #30 tablet.ec 02/19/19 Insulin Glargine,Hum.rec.anlog [[place]lmukesh Araujopen U-100] 5 unit SQ AM 30 Days #1 5ml 02/19/19 This patient is new to me today: No Emergency Visit: Yes ED Registration Date: 07/29/19 Care time: The patient presented to the Emergency Department on the above date and was hospitalized for further evaluation of their emergent condition. Critical Care patient: No - Discharge Referral Referred to [facility] Med P.C.: No ATTENDING PHYSICIAN STATEMENT I saw and evaluated the patient. I reviewed the resident's note and discussed the case with the resident. I agree with the resident's findings and plan as documented. SUBJECTIVE: OBJECTIVE: ASSESSMENT AND PLAN:
--- NOTE | 2019-08-10 13:18 | PN ---
Teaching Attending Note Name of Resident: Adele Chavez ATTENDING PHYSICIAN STATEMENT I saw and evaluated the patient. I reviewed the resident's note and discussed the case with the resident. I agree with the resident's findings and plan as documented. SUBJECTIVE:tolerating diet. had only 1 semi-formed BM in past 24H. denies Cp, SOB, fever, chills, N/v/C/D OBJECTIVE: Last Vital Signs Temp Pulse Resp BP Pulse Ox 98.1 F 77 20 126/70 98 08/10/19 10:00 08/10/19 10:00 08/10/19 10:00 08/10/19 10:00 08/10/19 09:00 General NAD CV S1 S2 RRR no murmur/rub/gallop Lungs CTA B/L no wheezing/rales/ronchi Abdomen soft NT/ND extremities no pedal edema ASSESSMENT AND PLAN: 54yo M wtih PMH DM, HTN, ETOH cirrhosis, CAD s/p stents and dyslipidemia presented to the ER wtih vomiting and anorexia and found to have acute pancreatitis 1. Acute pancreattitis-likely due to ETOH. now resolved. tolerating regular diet. advised need for total ETOH abstinence. 2. Hyperglycemia- improved. home dose of levemir has been held. can re-start on discharge 3. SIRS- afebrile >24H. taked on abx yesterday and been off for 24H. cdiff was indeterminate however in setting of it self resolving likely not cdiff and more abx associated. 4. AGMA- likely due to ketosis from anorexia and not DKA. AG now closed. 5. Hyponatremia- due to dehydration. now resolved. corrected Na 135 6. Hypokalemia- resolved 7. Severe hypophosphatemia- resolved 8. Pseudohypocalcemia- Corrected Ca 8.2 9. Transaminitis- likley due to ETOH use. resolved 10. thrombocytopenia- due to cirrhosis. no thrombophilic. monitor 11. BEVERLY- due to dehydration. now resolved. 12. Acute ETOH withdrawals- no signs of withdrawal. cont thimine/folate/mvi. refusing [facility] for inpatient rehab. referred to AA meetings. stressed importance of abstinence 13. Prolonged Qtc- monitor medications 14. DVT ppx- Hep sq 15. PT eval. medically optimized for discharge. d/c home vs [facility] pending PT eval
[2019-08-10 14:06] VITALS: BMI 33.2
--- NOTE | 2019-08-10 14:30 | PN.GI ---
GI Progress Note Subjective: Pt seen/examined, sitting up eating lunch, feeling well, denies abdominal pain, n/v. Had one soft-formed bm today, no blood. Denies fever/chills. Low grade temp yesterday, now afebrile. - Objective Vital Signs: Vital Signs Temperature 98.1 F 08/10/19 10:00 Pulse Rate 77 08/10/19 10:00 Respiratory Rate 20 08/10/19 10:00 Blood Pressure 126/70 08/10/19 10:00 O2 Sat by Pulse Oximetry (%) 98 08/10/19 09:00 Constitutional: Well Nourished, No Distress, Calm Cardiovascular: Yes: WNL, Regular Rate and Rhythm Respiratory: Yes: WNL, Regular, CTA Bilaterally ...Palpate: Yes: Other (Abd soft, nt, nd) Labs: CBC, BMP 08/10/19 07:00 08/10/19 07:00 INR, PTT INR 1.31 (0.83-1.09) H 07/30/19 08:00 Problem List - Problems (1) Pancreatitis, acute Assessment/Plan: 54yo male with pancreatitis secondary to etoh. Fevers and leucocytosis improving. C difficile testing indeterminate though diarrhea appears to have resolved. CT pancreatic protocol revealing pancreatitis without evidence of necrosis or fluid collections. -Continue supportive measures -Diet as tolerated -Advised strict etoh abstinence -Dc planning per primary team Code(s): K85.90 - ACUTE PANCREATITIS WITHOUT NECROSIS OR INFECTION, UNSP Qualifiers: Pancreatitis type: alcohol induced Acute pancreatitis complication: unspecified Qualified Code(s): K85.20 - Alcohol induced acute pancreatitis without necrosis or infection
[2019-08-10] MEDS: CARVEDILOL 25 MG TABLET (FP) PO SCH (21:58)
[2019-08-11] MEDS: INSULIN SLIDING SCALE (NOVOLOG) 1 VIAL SQ SCH ×2 (06:06→12:41)
[2019-08-11] MEDS: HEPARIN NA (PORCINE) 5,000 UNITS/ML 1ML VIAL SQ SCH ×2 (06:07→14:41)
[2019-08-11] MEDS ORDERED: INSULIN (LEVEMIR) 100 UNITS/ML UNITS SQ ONE ×2 (08:51→12:39)
[2019-08-11] MEDS ORDERED: INSULIN (NOVOLOG) ASPART 100 UNITS/ML 10ML VIAL ONE ×2 (09:48→12:39)
[2019-08-11] MEDS ORDERED: PT OWN MED DRAWER 7, Y5N ONE (09:49)
[2019-08-11] MEDS: FOLIC ACID 1 MG TABLET (FP) PO SCH (09:50)
[2019-08-11] MEDS: ASPIRIN COATED 81 MG TABLET.EC PO SCH (09:50)
[2019-08-11] MEDS: LISINOPRIL 10 MG TABLET (FP) PO SCH (09:50)
[2019-08-11] MEDS: TOPIRAMATE 25 MG TABLET (FP) PO SCH (09:50)
[2019-08-11] MEDS: TAMSULOSIN HCL 0.4 MG CAP PO SCH (09:50)
[2019-08-11] MEDS: CARVEDILOL 25 MG TABLET (FP) PO SCH (09:50)
[2019-08-11] MEDS: THIAMINE HCL 200 MG/2 ML VIAL IVPB SCH (09:51)
--- NOTE | 2019-08-11 13:46 | PN ---
Teaching Attending Note Name of Resident: Adele Chavez ATTENDING PHYSICIAN STATEMENT I saw and evaluated the patient. I reviewed the resident's note and discussed the case with the resident. I agree with the resident's findings and plan as documented. SUBJECTIVE:asymptomatic. tolerating diet. denies Cp, SOB, fever, chills, N/V/C/D OBJECTIVE: Last Vital Signs Temp Pulse Resp BP Pulse Ox 97 F L 76 18 156/91 99 08/11/19 08:44 08/11/19 08:44 08/11/19 08:44 08/11/19 08:44 08/10/19 21:00 General NAD ASSESSMENT AND PLAN: 54yo M wtih PMH DM, HTN, ETOH cirrhosis, CAD s/p stents and dyslipidemia presented to the ER wtih vomiting and anorexia and found to have acute pancreatitis 1. Acute pancreatitis-likely due to ETOH. now resolved. tolerating regular diet. advised need for total ETOH abstinence. 2. Hyperglycemia- improved. home dose of levemir has been held. restart 5 units and follow up with PMD for further titration 3. SIRS- afebrile >48H. off abx 4. AGMA- likely due to ketosis from anorexia and not DKA. AG now closed. 5. Hyponatremia- due to dehydration. now resolved. corrected Na 135 6. Hypokalemia- resolved 7. Severe hypophosphatemia- resolved 8. Pseudohypocalcemia- Corrected Ca 8.2 9. Transaminitis- likley due to ETOH use. resolved 10. thrombocytopenia- due to cirrhosis. no thrombophilic. monitor 11. BEVERLY- due to dehydration. now resolved. 12. Acute ETOH withdrawals- no signs of withdrawal. cont thimine/folate/mvi. refusing [facility] for inpatient rehab. referred to AA meetings. stressed importance of abstinence 13. Prolonged Qtc- monitor medications 14. DVT ppx- Hep sq 15.was d/c home yesterday however brother arrived and refused for him to leave because he wants [facility] placement. SW explained to him today that pt does not qualify as he is walking 300ft. pt verbalized understanding and desire to go home. plan to leave today
[2019-08-11 14:51] VITALS: BP 127/70; PULSE 88; TEMP 98.9
[2019-08-12] MEDS ORDERED: INSULIN (LEVEMIR) 100 UNITS/ML UNITS SQ SCH (07:00)
== END 2019-08-11 17:48 | disposition home or self-care (01) | DRG 282 ==
LOC: JER 14:19 → JERBED 19:15 → JICU 23:56 → J7W 08-03 21:00
PROVIDERS: ADMIT Internal Medicine; ATTEND Internal Medicine
DX: K85.20 Alcohol induced acute pancreatitis without necrosis or infection (principal); N17.9 Acute kidney failure, unspecified; E87.8 Other disorders of electrolyte and fluid balance, not elsewhere classified; E83.51 Hypocalcemia; D69.6 Thrombocytopenia, unspecified; I45.81 Long QT syndrome; E83.39 Other disorders of phosphorus metabolism; E11.65 Type 2 diabetes mellitus with hyperglycemia; R65.10 Systemic inflammatory response syndrome (SIRS) of non-infectious origin without acute organ dysfunction; E83.42 Hypomagnesemia; Z91.14 Patient's other noncompliance with medication regimen; I10 Essential (primary) hypertension; E78.5 Hyperlipidemia, unspecified; I25.10 Atherosclerotic heart disease of native coronary artery without angina pectoris; K29.60 Other gastritis without bleeding; Z79.4 Long term (current) use of insulin; E87.1 Hypo-osmolality and hyponatremia; E87.6 Hypokalemia; I45.10 Unspecified right bundle-branch block; Z95.5 Presence of coronary angioplasty implant and graft; K70.30 Alcoholic cirrhosis of liver without ascites; E66.9 Obesity, unspecified; R74.0 Nonspecific elevation of levels of transaminase and lactic acid dehydrogenase [LDH]; F10.230 Alcohol dependence with withdrawal, uncomplicated; Z68.33 Body mass index [BMI] 33.0-33.9, adult; N40.0 Benign prostatic hyperplasia without lower urinary tract symptoms; R19.7 Diarrhea, unspecified; D64.9 Anemia, unspecified; R50.9 Fever, unspecified
CPT/HCPCS: 36415; 36600; 70450-TC; 71045-TC-FY; 71046-TC-FY; 74176-TC; 74177-TC; 74178-TC; 74181-TC; 76705-TC; 80048; 80053; 80061; 80076; 81003; 82009; 82150; 82550; 82803; 82962; 83036; 83605; 83690; 83721; 83735; 84100; 84132; 84478; 84484; 85025; 85027; 85610; 85651; 85730; 86140; 86704; 86705; 86706; 86707; 86708; 86709; 87040; 87045; 87046; 87086; 87324; 87340; 87350; 87449; 87522; 93005; 93010; 97116-GP; 97161-GP; 99284-25; J0131; J1644; J7030; Q9967

== ENCOUNTER 2020-09-01 12:02 | Inpatient (IN) | payer OTHER ==
--- NOTE | 2020-09-01 12:17 | PDOC ---
History of Present Illness - General Chief Complaint: Chest Pain Stated Complaint: CHEST PAIN Time Seen by Provider: 09/01/20 12:14 - History of Present Illness Initial Comments: 09/01/20 12:16 HPI: This is a 55 y/o male with a PMH of IDDM, HTN, HLD, CAD s/p 2 stents, pancreatitis, liver cirrhosis, and chronic alcoholism presenting to the ED due to chest pain that began last night, and abdominal pain w/ N/V for the past 10 days. According to the patient he had a sharp central chest pain radiating to his left shoulder which began last night after coughing/vomiting and lasted 5 minutes. Walking made it worse, and it went away without intervention. Denied accompanying SOB. He has experienced the intermittent abdominal pain followed by nausea, and vomiting prior to this current episode. He states that he has not eaten or drank alcohol since the abdominal pain started 10 days ago. Last bowel movement was three days ago, no blood. Patient went to [facility] at the beginning of July with the same complaints. He had a cardiac workup with labs and ultrasound which showed no acute problems. Patient has not seen his electrician's assistant, Dr. Olguin in a while. ROS: GENERAL/CONSTITUTIONAL: No fever/chills, diaphoresis, or weakness. HEENT: No change in vision. No ear pain. No sore throat. CARDIOVASCULAR: One episode of sharp chest pain, palpitations or peripheral edema RESPIRATORY: Denied SOB, dyspnea with exertion, Admits to increased cough over the past few days GASTROINTESTINAL: Admits to diffuse abdominal pain, nausea, NBNB vomiting and constipation GENITOURINARY: No dysuria, frequency, or change in urination. MUSCULOSKELETAL: No joint or muscle swelling or pain. SKIN: No rash or hives NEUROLOGIC: No headache, vertigo, focal weakness, loss of consciousness, or change in strength/sensation. ENDOCRINE: No increased thirst. No unexplained weight loss. HEMATOLOGIC/LYMPHATIC: No anemia, easy bleeding, or history of blood clots. PMH: IDDM, HTN, HLD, CAD s/p 2 stents, pancreatitis, liver cirrhosis PSx: Cholecystectomy Social Hx: Last etoh 10 days ago. Denied tobacco and other drugs Meds: See nurse note Allergies: See nurse note PE: GENERAL: Awake, alert, fully oriented. Patient is non-toxic. He is a poor historian. HEENT: Normocephalic, atraumatic. PERRLA, EOMI. Scleral icterus. Moist mucous membranes. NECK: Normal ROM and supple. No lymphadenopathy, JVD, or masses. CARDIOVASCULAR: Regular rate and rhythm, normal S1 and S2, no murmurs, rubs or gallops PULMONARY: No respiratory distress. Breath sounds equal, clear to auscultation bilaterally. No wheezes, rales or rhonchi. ABDOMEN: Soft, nontender, normoactive bowel sounds. No guarding, no rebound. No masses EXTREMITIES: Normal range of motion, no edema or erythema, no calf tenderness. No clubbing or cyanosis. NEUROLOGICAL: Cranial nerves II through XII grossly intact. Normal speech, n ormal gait SKIN: Warm, Dry, normal turgor, no rashes or lesions noted. Normal capillary refill. PSYCHIATRIC: Cooperative. Appropriate affect. MDM: 09/01/20 14:19 This is a 55 y/o male with a PMH of IDDM, HTN, HLD, CAD s/p 2 stents, pancreatitis, liver cirrhosis, and chronic alcoholism presenting to the ED due to and episode of sharp chest pain last night, and abdominal p ain/nausea/vomiting for the past 10 days. - Afebrile, hemodynamically stable - Patient non-toxic appearing - Has not vomited since being in the emergency department - Poor historian but he brought paperwork from [facility] from July - Was admitted for the exact same complaints. Labwork was negative. TTUS showed no acute abnormalities - Doubt covid but will take precautions due to new cough ddx: acs, cirrhosis, pancreatitis, gastritis EKG, CXR Cardiac panel, CBC, CMP, lipase, mag Ofirmev for pain, 1g mag for QTc prolongation, famotidine EKG: Sinus rhythm Bifascicular block not seen on previous EKG Inferior infarct on prior EKG QTc: 518ms CXR: No acute processes Ofirmev for pain, 1g mag for QTc prolongation, famotidine Labs notable for: Na 130 Creat 1.4 Mag 1.3 Bili 2.8 AST 90 ALT 83 Troponin negative - Will US liver due to elevated enzymes - Patient also has BEVERLY ABDOMINAL US: No sonographic evidence of cholelithiasis Diffuse hepatic steatosis 09/01/20 15:45 - Adding Acetaminophen level - Add CT abdomen and pelvis to search for another source of pain - Will order second gram of magnesium CT ABDOMEN/PELVIS: IMPRESSION: No definite CT findings of acute pathology are noted. Very extensive atherosclerotic coronary artery calcifications are seen. Interval resolution of acute pancreatitis is seen in comparison to a CT exam of 08/08/2019. In regards to the current study mild/early acute pancreatitis may not be demonstrable on CT. There is prominent diffuse hepatic steatosis. Colonic diverticulosis. Small umbilical hernia containing fat only. 09/01/20 16:45 - Will admit to med/surg in order to trend liver enzymes and acs r/o. HEART score of 4 Past History - Medical History Allergies/Adverse Reactions: Allergies Allergy/AdvReac Type Severity Reaction Status Date / Time No Known Allergies Allergy Verified 09/01/20 12:05 Home Medications: Ambulatory Orders Folic Acid - 1 mg PO DAILY #0 tablet 12/19/12 Tamsulosin HCl 0.4 mg PO DAILY 11/24/15 Carvedilol [Coreg -] 25 mg PO BID #60 tablet 10/25/16 Lancets/Blood Glucose Strips [Fora [id number] Strp-Lnct] 1 each AC #90 combo..pkg 05/07/17 Atorvastatin Ca [Lipitor] 20 mg PO HS 07/24/18 Aspirin Coated [Ecotrin -] 81 mg PO DAILY #30 tablet.ec 02/19/19 Finasteride 5 mg PO DAILY 09/01/20 Fluticasone Propionate [24 Hour Allergy] 9.9 ml NS DAILY 09/01/20 Insulin Glargine,Hum.rec.anlog [Basaglar Kwikpen U-100] 30 unit SQ DAILY 09/01/20 Insulin Glargine,Hum.rec.anlog [Lantus Solostar PEN (NF)] 20 units SQ TID 09/01/20 Metformin HCl [Glucophage] 500 mg PO BID 09/01/20 Multivitamin [Tab-A-Alicia] 1 each PO DAILY 09/01/20 Pantoprazole Sodium [Protonix] 40 mg PO DAILY 09/01/20 Thiamine HCl [B-1] 100 mg PO DAILY 09/01/20 Anemia: No Asthma: No Cancer: No Cardiac Disorders: Yes (afib, cardiac stent 2009) CVA: No COPD: No CHF: No Dementia: No Diabetes: Yes GI Disorders: (cholecystitis ,pancreatitis) Disorders: No HTN: Yes Hypercholesterolemia: Yes Liver Disease: Yes (liver cirrhosis) Seizures: No Thyroid Disease: No - Surgical History Abdominal Surgery: No Appendectomy: No Cardiac Surgery: Yes (stent) Cholecystectomy: No Lung Surgery: No Neurologic Surgery: No Orthopedic Surgery: No - Immunization History Immunization Up to Date: Yes - Psycho-Social/Smoking History Smoking Status: Yes Smoking History: Never smoked Have you smoked in the past 12 months: No Number of Cigarettes Smoked Daily: 0 If you are a former smoker, when did you quit?: 2005 Cigars Per Day: 0 - Substance Abuse Hx (Audit-C & DAST Scrn) How often the patient has a drink containing alcohol: Never Score: In Men: 4 or > Positive; In Women: 3 or > Positive: 0 Screen Result (Pos requires Nsg. Audit-10AR): Negative *Physical Exam - Vital Signs Last Vital Signs Temp Pulse Resp BP Pulse Ox 98.1 F 108 H 18 113/74 98 09/01/20 12:05 09/01/20 12:05 09/01/20 12:05 09/01/20 12:05 09/01/20 12:05 Heart Score/ECG Review - History History: Slightly suspicious - Electrocardiogram EKG: Non specific repolarization disturbance - Age Age: 45-65 - Risk Factors Risk Factors Heart Score: Yes Hx Hypercholesterolemia, Yes Hx Hypertension, Yes Hx Diabetes, Yes Smoking History Based on the list above the patient has:: >/=3 risk factors or Hx atherosclerotic disease - Troponin Troponin: </= normal limit - Score Heart Score - Total: 4 ED Treatment Course - LABORATORY CBC & Chemistry Diagram: 09/02/20 05:38 09/02/20 05:38 Discharge - Discharge Information Problems reviewed: Yes Clinical Impression/Diagnosis: Elevated bilirubin - Follow up/Referral - Patient Discharge Instructions - Post Discharge Activity
[2020-09-01] MEDS ORDERED: MAGNESIUM SULF 50% (8.12 MEQ/2 ML-1 GM VIAL) IVPB ONE ×2 (13:07→14:46)
[2020-09-01] MEDS ORDERED: ACETAMINOPHEN 1000 MG/100 ML VIAL (NON FORMULARY) IVPB ONE (13:07)
[2020-09-01] MEDS ORDERED: FAMOTIDINE 20 MG/50 ML IVPB 20 MG/50 ML MG IVPB ONE ×2 (13:07→13:23)
[2020-09-01] MEDS ORDERED: ACETAMINOPHEN INJECTION 100 ML IVPB ONE (13:22)
[2020-09-01] MEDS ORDERED: MAGNESIUM 1GM/D5W - 1 GM/100 ML IVPB IVPB ONE ×2 (13:23→14:50)
[2020-09-01] MEDS ORDERED: ONDANSETRON *ODT* 4 MG TABLET ONE (13:33)
[2020-09-01 13:59] LABS: BASO % 0.4 % (0-2.0); EOS % 0.2 % (0-4.5); HEMOGLOBIN 16.4 GM/dL (11.7-16.9); MCH 30.8 pg (25.7-33.7); MCHC 34.9 g/dl (32.0-35.9); MEAN CELL VOLUME 88.2 fl (80-96); MEAN PLT VOLUME 8.1 fl (7.5-11.1); MONO % 8.9 % (3.8-10.2); NEUT % 66.5 % (42.8-82.8); PLATELET COUNT 205 K/MM3 (134-434); RBC 5.33 M/mm3 (4.00-5.60); RDW 20.1 % (11.9-15.9); WHITE BLOOD COUNT 12.7 K/mm3 (4.0-10.0)
[2020-09-01 14:35] LABS: ALBUMIN 3.9 g/dl (3.4-5.0); ALK PHOS 89 U/L (45-117); ANION GAP 8 MMOL/L (8-16); BILIRUBIN,TOTAL 2.8 mg/dL (0.2-1); BLOOD UREA NITROGEN 11.6 mg/dL (7-18); CALCIUM 9.3 mg/dL (8.5-10.1); CHLORIDE 84 mmol/L (98-107); CO2 37 mmol/L (21-32); CREATININE 1.4 mg/dL (0.55-1.3); GLUCOSE,RANDOM 192 mg/dL (74-106); LIPASE 67 U/L (73-393); MAGNESIUM 1.3 mg/dL (1.8-2.4); POTASSIUM 4.2 mmol/L (3.5-5.1); SGOT/AST 90 U/L (15-37); SODIUM 130 mmol/L (136-145); TOT PROT 8.7 g/dl (6.4-8.2)
[2020-09-01 14:46] LABS: SGPT/ALT 83 U/L (13-61)
[2020-09-01] MEDS ORDERED: SODIUM CHLORIDE 0.9% 500 ML INFUS.BAG IV ONE (14:50)
[2020-09-01] MEDS ORDERED: LACTATED RINGERS SOLUTION 1000 ML INFUS.BAG IV ONE (14:50)
--- NOTE | 2020-09-01 15:06 | PDOC ---
Attending Attestation - Resident Resident Name: Cecilio,Karey - HPI HPI: 09/01/20 16:00 Pt presents to the ED complaining of chest pressure that began after an episode of cough. Also complaining of an eoisode of vomiting. Patient has an extensive medical history as noted below. Denies fever or shortness of breath. Denies sick contacts. 09/01/20 16:07 - Physicial Exam PE: 09/01/20 16:11 Agree with resident exam. Patient is alert and oriented and in no acute distress. CV: rrr no m/r/g Pulm: CTA b/l. Abdomen: obese, non tender, non distended without guarding or rebound. - Medical Decision Making 09/01/20 16:52 Pt presents to the Ed complaining of chest pain and cough. Denies fever. differential included pancreatitis, acs, covid, biliary disease. Labs show LFTs elevated above baseline and normal trponin. EKG unchanged. US abdomen shows fatty liver. Will admit to medicine for r/o ACS, serial Lfts and continued monitoring. Discharge - Discharge Information Problems reviewed: Yes Clinical Impression/Diagnosis: Elevated bilirubin - Follow up/Referral - Patient Discharge Instructions - Post Discharge Activity
[2020-09-01] MEDS ORDERED: TRIMETHOBENZAMIDE HCL 300 MG CAPSULE PO ONE (18:14)
[2020-09-01] MEDS: SODIUM CHLORIDE 1,000 ML IV SCH (18:20)
--- NOTE | 2020-09-01 18:23 | HP ---
CHIEF COMPLAINT: epigastric pain, chest pain PCP: Dr. Urias in past, now Babak Jahbang HISTORY OF PRESENT ILLNESS: 55 y.o. M PMH HTN, HLD, CAD s/p PCI (2 stents placed ~2009), pancreatitis 07/2019, gastritis, cirrhosis, EtOH use disorder presenting with epigastric and chest pain. Patient states the epigastric pain has been occurring for the last 10 days. 8 days ago he presented to the [facility] ED with similar symptoms, was diagnosed with gastritis and was sent home with PO protonix and zofran. Since leaving the ED his epigastric pain has not improved and he has become more nauseous with episodes of NBNB emesis. Lying down makes the pain worse; pain is not exacerbated or improved with leaning forward. The patient has been having limited PO intake since these symptoms started. He denies drinking any alcohol in the last 10 days. Yesterday, pt reports he had 1 episode of sharp substernal, nonradiating chest pain that self resolved after about 20 minutes. ROS: + nausea, vomiting, constipation denies palpitations/ SOB/ cough/ fever/ chills/ diarrhea/ parasthesias or myalgias ER course was notable for: (1) mag replaced 2g IV (2) 2 L IVF: 1 LR, 1 NS (3)20 mg pepcid IV Recent Travel: denies PAST MEDICAL HISTORY: as per hpi PAST SURGICAL HISTORY: cholecystectomy Cardiac cath s/p 2 stents (patient recollection around 2009) Social History: Smoking: denies Alcohol: daily 3 shots of whiskey, last drink 10 days ago Drugs: denies cocaine/ MJ/ heroin or other illicit substances Allergies No Known Allergies Allergy (Verified 09/01/20 12:05) Family Hx: HTN, DM both sides HOME MEDICATIONS: Home Medications Medication Instructions Recorded Folic Acid - 1 mg PO DAILY #0 tablet 12/19/12 Tamsulosin HCl 0.4 mg PO DAILY 11/24/15 Carvedilol [Coreg -] 25 mg PO BID #60 tablet 10/25/16 Lancets/Blood Glucose Strips [Fora 1 each [facility] #90 combo..pkg 05/07/17 [id number] Strp-Lnct] Atorvastatin Ca [Lipitor] 20 mg PO HS 07/24/18 Famotidine [Pepcid] 40 mg PO DAILY 02/16/19 Multivitamin [One-Daily 1 each PO DAILY 02/16/19 Multi-Vitamin] Topiramate [Topamax] 50 mg PO BID 02/16/19 Aspirin Coated [Ecotrin -] 81 mg PO DAILY #30 tablet.ec 02/19/19 Insulin Glargine,Hum.rec.anlog 5 unit SQ AM 30 Days #1 5ml 02/19/19 [Basaglar Kwikpen U-100] Lisinopril [Prinivil] 10 mg PO DAILY 30 Days #30 tablet 08/10/19 Insulin Glargine,Hum.rec.anlog 5 unit SQ DAILY 30 Days #2 08/12/19 [Basaglar Kwikpen U-100] insuln.pen Finasteride 5 mg PO DAILY 09/01/20 Multivitamin [Tab-A-Alicia] 1 each PO DAILY 09/01/20 Pantoprazole Sodium [Protonix] 40 mg PO DAILY 09/01/20 Thiamine HCl [B-1] 100 mg PO DAILY 09/01/20 PHYSICAL EXAMINATION Vital Signs - 24 hr 09/01/20 09/01/20 12:05 15:14 Temperature 98.1 F Pulse Rate 108 H Pulse Rate [ 86 Apical] Respiratory 18 19 Rate Blood Pressure 113/74 Blood Pressure 135/85 [Right Arm] O2 Sat by Pulse 98 98 Oximetry (%) GENERAL: Awake, alert, and fully oriented, in no acute distress. HEAD: Normal with no signs of trauma. EYES: Pupils equal, round and reactive to light, extraocular movements intact, sclera anicteric, conjunctiva clear. No lid lag. EARS, NOSE, THROAT: Ears normal, nares patent, oropharynx clear without exudates. Moist mucous membranes. NECK: Normal range of motion, supple without lymphadenopathy, JVD, or masses. LUNGS: Breath sounds equal, clear to auscultation bilaterally. No wheezes, and no crackles. No accessory muscle use. HEART: Regular rate and rhythm, normal S1 and S2 without murmur, rub or gallop. ABDOMEN: Soft, nontender, not distended, normoactive bowel sounds, no guarding, no rebound, no masses. No hepatomegaly or splenomegaly. MUSCULOSKELETAL: Normal range of motion at all joints. No bony deformities or tenderness. No CVA tenderness. UPPER EXTREMITIES: 2+ pulses, warm, well-perfused. No cyanosis. No clubbing. No peripheral edema. LOWER EXTREMITIES: 2+ pulses, warm, well-perfused. No calf tenderness. No peripheral edema. NEUROLOGICAL: Cranial nerves II-XII intact. Normal speech. Normal gait. PSYCHIATRIC: Cooperative. Good eye contact. Appropriate mood and affect. SKIN: Warm, dry, normal turgor, no rashes or lesions noted, normal capillary refill. Laboratory Results - last 24 hr 09/01/20 09/01/20 09/01/20 12:38 13:07 13:45 WBC 12.7 H RBC 5.33 Hgb 16.4 Hct 47.0 D MCV 88.2 MCH 30.8 MCHC 34.9 RDW 20.1 H Plt Count 205 D MPV 8.1 Absolute Neuts (auto) 8.4 H Neutrophils % 66.5 Lymphocytes % 24.0 D Monocytes % 8.9 Eosinophils % 0.2 Basophils % 0.4 Nucleated RBC % 0 Sodium 130 L Potassium 4.2 Chloride 84 L Carbon Dioxide 37 H Anion Gap 8 BUN 11.6 Creatinine 1.4 H Est GFR (CKD-EPI)AfAm 64.18 Est GFR (CKD-EPI)NonAf 55.38 POC Glucometer 224 Random Glucose 192 H Calcium 9.3 Magnesium 1.3 L Total Bilirubin 2.8 H AST 90 H ALT 83 H Alkaline Phosphatase 89 Creatine Kinase 253 Creatine Kinase Index No Result Required. CK-MB (CK-2) < 1.0 Troponin I < 0.02 Total Protein 8.7 H Albumin 3.9 Lipase 67 L Acetaminophen 09/01/20 13:45 WBC RBC Hgb Hct MCV MCH MCHC RDW Plt Count MPV Absolute Neuts (auto) Neutrophils % Lymphocytes % Monocytes % Eosinophils % Basophils % Nucleated RBC % Sodium Potassium Chloride Carbon Dioxide Anion Gap BUN Creatinine Est GFR (CKD-EPI)AfAm Est GFR (CKD-EPI)NonAf POC Glucometer Random Glucose Calcium Magnesium Total Bilirubin AST ALT Alkaline Phosphatase Creatine Kinase Creatine Kinase Index CK-MB (CK-2) Troponin I Total Protein Albumin Lipase Acetaminophen < 2.0 ASSESSMENT/PLAN: 55 y.o. M PMH HTN, HLD, CAD s/p PCI (2 stents placed ~2009), pancreatitis 07/2019, gastritis, cirrhosis, EtOH use disorder presenting with epigastric and chest pain. #Epigastric pain #Nausea/ vomiting -worse w/ lying flat likely 2/2 gastritis -cannot r/o intraabdominal pathology in setting of leukocytosis, elevated t.bili and BEVERLY, f/u CT A/P w/o con -s/p pepcid in ED w/ mild improvement of symptoms -encourage upright positioning after meals -Trial of Tigan; avoid qtc prolonging agents in setting of prolonged qtc- patient was recently sent home from [facility] ED with zofran which may explain current prolonged qtc #Chest pain r/o ACS -s/p 1 episode chest pain yesterday, now resolved -patient with significant cardiac history warranting ACS workup -HEART score 4 -troponin negative x 1; trend -EKG showing NSR rate 98bpm, RBBB seen on prior ekg, new bifascicular block. Qtc prolonged 518 -cardio Dr. Zee consulted, f/u recs -last echo done 07/2019 showing EF 60-65%, trace MR/ TR -continue to monitor on tele #BEVERLY -Cr 1.4 today, baseline ~0.6 -trend renal labs -IVF hydration -F/u CT A/P for visualization of kidneys/ ureters/ bladder -UA, urine lytes, U-tox #Elevated T. bili -Abd U/S Showing diffuse hepatic steatosis -f/u CT A/P results -Direct BR ordered #Leukocytosis -No clear source, f/u ct a/p -repeat CBC -f/u UA -afebrile, cont to monitor vitals #Hypomagnesemia -repleted -f/u repeat in AM #EtOH abuse -counselled on importance of discontinuing use -continue MV/ thiamine/ folic acid (home meds) -no active signs of withdrawal #CAD -continue daily aspirin #HTN -patient on carvedilol at home, unsure of dose -will need AM med rec #HLD -continue atorvastatin 20mg HS #DM -on home metformin, hold while inpatient -ISS BGMs ACHS -f/u HbA1c #BPH continue tamsulosin & finasteride #FEN -NS @85cc/hr -trend & replete lytes prn -NPO for now until CT a/p; if negative, diabetic/ sodium controlled diet #PPX -DVT: heparin sq -GI: ppi 40mg PO daily #Dispo telemetry Family Medical History Family History: As Documented Visit type - Emergency Visit Emergency Visit: Yes ED Registration Date: 09/02/20 Care time: The patient presented to the Emergency Department on the above date and was hospitalized for further evaluation of their emergent condition. - New Patient This patient is new to me today: Yes Date on this admission: 09/02/20 - Critical Care Critical Care patient: No ATTENDING PHYSICIAN STATEMENT I saw and evaluated the patient. I reviewed the resident's note and discussed the case with the resident. I agree with the resident's findings and plan as documented. SUBJECTIVE: OBJECTIVE: ASSESSMENT AND PLAN:
[2020-09-01] MEDS ORDERED: ATORVASTATIN CA 20 MG TABLET (FP) ONE (20:46)
[2020-09-01] MEDS: INSULIN SLIDING SCALE (NOVOLOG) 1 VIAL SQ SCH (21:01)
[2020-09-01] MEDS: ATORVASTATIN CA 10 MG TABLET (FP) PO SCH (21:01)
[2020-09-01] MEDS: BENZOCAINE/MENTH/CETYLPYRD CL 1 EACH LOZENGE MM PRN ×2 (21:17→22:14)
--- NOTE | 2020-09-01 21:54 | PN ---
Teaching Attending Note Name of Resident: Miriam Braga ATTENDING PHYSICIAN STATEMENT I saw and evaluated the patient. I reviewed the resident's note and discussed the case with the resident. I agree with the resident's findings and plan as documented. SUBJECTIVE: 55 y.o. M w/ PMH HTN, HLD, CAD s/p PCI (2 stents placed ~2009), pancreatitis 07/2019, gastritis, cirrhosis, EtOH use disorder presenting with epigastric and chest pain. Pt describes pn in the last 10 days in the epigastrium. He was previously seen in [facility] ED for similar complaints, but was sent home with protonix and zofran and a dx of gastritis. Patient states that the meds helped, but he developed ssx again and came back to the ED. See resident note for further details. OBJECTIVE: CBC, BMP 09/01/20 13:45 09/01/20 13:07 Vital Signs Temperature 98.1 F 09/01/20 12:05 Pulse Rate 85 09/01/20 20:55 Respiratory Rate 16 09/01/20 20:55 Blood Pressure 151/83 09/01/20 20:55 O2 Sat by Pulse Oximetry (%) 99 09/01/20 20:55 GENERAL: Awake, alert, and fully oriented, in no acute distress. NECK: Normal range of motion, supple without lymphadenopathy, JVD, or masses. LUNGS: Breath sounds equal, clear to auscultation bilaterally. No wheezes, and no crackles. No accessory muscle use. HEART: Regular rate and rhythm, normal S1 and S2 without murmur, rub or gallop. ABDOMEN: Soft, nontender, not distended, normoactive bowel sounds, no guarding, no rebound, no masses. No hepatomegaly or splenomegaly. LOWER EXTREMITIES: 2+ pulses, warm, well-perfused. No calf tenderness. No peripheral edema. NEUROLOGICAL: Cranial nerves II-X intact. Normal speech. SKIN: Warm, dry, normal turgor, no rashes or lesions noted, normal capillary refill. ASSESSMENT AND PLAN: 55 y.o. M w/ PMH HTN, HLD, CAD s/p PCI (2 stents placed ~2009), pancreatitis 07/2019, gastritis, cirrhosis, EtOH use disorder presenting with epigastric and chest pain. #Epigastric pain #Nausea/ vomiting #Chest pain r/o ACS #BEVERLY #Elevated T. bili -tigan given prolonged QTC -protonix -ctap non-con r/o intraabdominal pathology -trop negativex1, trend -EKG showed NSR w/ prolonegd QTc -cardio consult: Ginelli -tele monitoring -Cr elevated 1.4 today, baseline .6 -UA, urine lytes -abd US in ed negative for gallstones, shows fatty liver -consider GI consult in am -transaminitis likely 2/2 etoh use -monitor for withdrawal ssx
[2020-09-01 22:29] LABS: EPI CELLS 15 /uL (0-25.1); HYALINE CASTS 25 /uL (0-3.1); PH,URINE 5.5 (5.0-8.0); URINE APPEARANCE CLOUDY; URINE BILIRUBIN 2+ (NEGATIVE); URINE COLOR ORANGE; URINE GLUCOSE (UA) NEGATIVE (NEGATIVE); URINE KETONE TRACE (NEGATIVE); URINE LEUK ESTERASE NEGATIVE (NEGATIVE); URINE NITRITE POSITIVE (NEGATIVE); URINE PROTEIN 2+ (NEGATIVE); URINE RBC 6 /uL (0-23.9); URINE WBC 8 /uL (0-25.8)
[2020-09-01 22:46] LABS: COCAINE, UR NEGATIVE ng/ml (CUTOFF=300); METHADONE, UR NEGATIVE ng/ml (CUTOFF=300); OPIATES, URI NEGATIVE ng/ml (CUTOFF=300); PHENCYCLIDINE,URINE NEGATIVE ng/ml (CUTOFF=25); URINE AMPHETAMINES NEGATIVE ng/ml (CUTOFF=500); URINE BARBITURATES NEGATIVE ng/ml (CUTOFF=200); URINE BENZODIAZEPINES NEGATIVE ng/ml (CUTOFF=200)
[2020-09-02] MEDS: BENZOCAINE/MENTH/CETYLPYRD CL 1 EACH LOZENGE MM PRN ×2 (01:05→01:44)
[2020-09-02] MEDS ORDERED: MELATONIN 5 MG TABLETS PO ONE (01:11)
[2020-09-02] MEDS ORDERED: MELATONIN 5 MG TABLETS ONE (01:16)
--- OUTSIDE RECORDS SUMMARY | 2020-09-02 01:31 | XMS ---
:1965 Author Organization [facility] Care Team Providers Name Role Phone EUGENIO ABRAMS Unavailable Unavailable ED STAFF PHYSICIAN, STAFF Unavailable Unavailable ED STAFF PHYSICIANLUIS ENRIQUE Unavailable Unavailable SARAVANAN BURTON Unavailable Unavailable Re-disclosure Warning The records that you are about to access may contain information from federally- assisted alcohol or drug abuse programs. If such information is present, then the following federally mandated warning applies: This information has been disclosed to you from records protected by federal confidentiality rules (42 CFR part 2). The federal rules prohibit you from making any further disclosure of this information unless further disclosure is expressly permitted by the written consent of the person to whom it pertains or as otherwise permitted by 42 CFR part 2. A general authorization for the release of medical or other information is NOT sufficient for this purpose. The Federal rules restrict any use of the information to criminally investigate or prosecute any alcohol or drug abuse patient.The records that you are about to access may contain highly sensitive health information, the redisclosure of which is protected by Article 27-F of the [facility] Public Health law. If you continue you may haveaccess to information: Regarding HIV / AIDS; Provided by facilities licensed or operated by the [facility] Office of Mental Health; or Provided by the [facility] Office for People With Developmental Disabilities. If such information is present, then the following [facility] mandated warning applies: This information has been disclosed to you from confidential records which are protected by state law. State law prohibits you from making any further disclosure of this information without the specific written consent of the person to whom it pertains, or as otherwise permitted by law. Any unauthorized further disclosure in violation of state law may result in a fine or usp sentence or both. A general authorization for the release of medical or other information is NOT sufficient authorization for further disclosure. Encounters Encounter Providers Location Date Indications Data Source(s ) Outpatient Attender: EUGENIO Pulido 04/30/2020 [facility] JUSTO JEANAdmitter: 11:44:00 AM [facility] EUGENIO KEMP EDT EUGENIOReferrer: EUGENIO BECKER Outpatient Attender: SARAVANAN 02/06/2020 [facility] TEAGAN 03:11:00 PM Medical [place] DANUTAAdmitter: EDT SARAVANAN JAMESUTAReferrer: EUGENIO BECKER Emergency Attender: LUIS ENRIQUE ED H 01/22/2020 [facility] STAFF 10:35:00 AM Medical [facility] PHYSICIANAttender: EST - STAFF ED STAFF 01/22/2020 PHYSICIANAdmitter: 03:52:00 PM [facility] ED STAFF EST PHYSICIAN Patient discharged. Insurance Providers Payer name Policy type Policy ID Covered Covered republican's Policy P petey / Coverage republican ID relationship to Garcia Inf ormation type garcia [place] [id number] [place] [id number] HMO O MVP/HHP O [id number] 01 [id number] MVP/HHP O [id number] 01 [id number] 200 W [id number] 01 [id number] [place] O [id number] 01 [id number] 200 HEALTH ACUTE MEDICAID [id number] SP [id number] Problems, Conditions, and Diagnoses Code Display Name Description Problem Type Effective Data Sour ce(s) Dates M54.9 Dorsalgia, DORSALGIA, Diagnosis 04/30/2020 [facility] unspecified UNSPECIFIED 11:44:00 AM Medical [facility] dilcia EDT M25.612 Stiffness of left STIFFNESS OF LEFT Diagnosis 02/06/2020 [facility] shoulder, not SHOULDER, NOT 03:11:00 PM Medical Center elsewhere ELSEWHERE EDT classified CLASSIFIED M25.512 Pain in left PAIN IN LEFT Diagnosis 02/06/2020 [facility] shoulder SHOULDER 03:11:00 PM Medical [facility] EDT N28.9 Disorder of kidney DISORDER OF KIDNEY Diagnosis 0 [facility] and ureter, AND URETER, 10:35:[address] unspecified UNSPECIFIED EST I10 Essential ESSENTIAL Diagnosis 01/22/2020 [facility] (primary) (PRIMARY) 10:35:00 AM Medical [facility] hypertension HYPERTENSION EST M75.52 Bursitis of left BURSITIS OF LEFT Diagnosis 01/22/2020 [facility] shoulder SHOULDER 10:35:00 AM Medical [place] [facility] EST Social History Code Duration Value Status Description Data Source(s ) Smoking 01/22/2020 Denies Ever completed Denies Ever Smoked [facility] 11:50:00 AM EST Smoked Medical C enter Smoking 01/22/2020 Denies Ever completed Denies Ever Smoked [facility] 10:50:00 AM EST Smoked Medical C enter Vital Signs ID Date Data Source UNK Name Value Range Interpretation Code Description Data Source(s) Body temperature 37.731719 37.987369 [facility] Respiratory rate 20 /min 20 /min [facility] Oxygen saturation 99 % 99 % [facility] Arterial blood [facility] by Pulse oximetry Heart rate 76 /min 76 /min [facility] Diastolic blood 96 mm[Hg] 96 mm[Hg] [facility] pressure [facility] Systolic blood 160 mm[Hg] 160 mm[Hg] [facility] Body weight 105.483298 105.635072 kg [facility] Measured kg [facility] [place] Body temperature 37.066834 37.422329 [facility] Respiratory rate 18 /min 18 /min [facility] Oxygen saturation 98 % 98 % [facility] Arterial blood [facility] by Pulse oximetry Heart rate 87 /min 87 /min [facility] Body height 172.973470 172.099987 cm [facility] Diastolic blood 98 mm[Hg] 98 mm[Hg] [facility] pressure [facility] Systolic blood 156 mm[Hg] 156 mm[Hg] [facility] Body mass index 35.1 kg/m2 35.1 kg/m2 [facility] (BMI) [Ratio] Medical [facility]
[2020-09-02] MEDS ORDERED: guaiFENesin/D-METHORPHAN HB 10 ML UNIT-DOSE CUPS PO PRN (03:21)
[2020-09-02] MEDS: guaiFENesin/D-M SUGAR-FREE/ACLHOL-FREE 118 ML BOTTLE PO PRN ×2 (03:42→15:19)
[2020-09-02 03:54] LABS: POTASSIUM 2.8 mmol/L (3.5-5.1)
[2020-09-02] MEDS ORDERED: POTASSIUM CHLORIDE TABS 20 MEQ TABLET.ER (FP) PO ONE (04:22)
[2020-09-02 04:32] VITALS: BMI 30.8
[2020-09-02] MEDS: KCL 10 MEQ IVPB 10 MEQ/100 ML INFUS.BAG IVPB SCH ×3 (05:07→09:45)
[2020-09-02 06:57] LABS: BASO % 0.4 % (0-2.0); EOS % 0.5 % (0-4.5); HEMOGLOBIN 13.3 GM/dL (11.7-16.9); LYMPH % 37.5 % (8-40); MCH 30.5 pg (25.7-33.7); MCHC 34.9 g/dl (32.0-35.9); MEAN CELL VOLUME 87.4 fl (80-96); MEAN PLT VOLUME 7.4 fl (7.5-11.1); MONO % 10.4 % (3.8-10.2); NEUT % 51.2 % (42.8-82.8); PLATELET COUNT 171 K/MM3 (134-434); RBC 4.35 M/mm3 (4.00-5.60); RDW 19.8 % (11.9-15.9); WHITE BLOOD COUNT 7.4 K/mm3 (4.0-10.0)
[2020-09-02] MEDS: HEPARIN NA (PORCINE) 5,000 UNITS/ML 1ML VIAL SQ SCH ×3 (06:57→21:43)
[2020-09-02] MEDS: INSULIN SLIDING SCALE (NOVOLOG) 1 VIAL SQ SCH ×4 (06:58→22:28)
[2020-09-02 07:26] LABS: CHLORIDE 91 mmol/L (98-107); SODIUM 134 mmol/L (136-145)
[2020-09-02 07:34] LABS: ALBUMIN 3.8 g/dl (3.4-5.0); BLOOD UREA NITROGEN 16.1 mg/dL (7-18); CALCIUM 8.6 mg/dL (8.5-10.1); CO2 34 mmol/L (21-32); GLUCOSE,RANDOM 143 mg/dL (74-106); MAGNESIUM 1.5 mg/dL (1.8-2.4)
[2020-09-02 07:38] LABS: ALK PHOS 78 U/L (45-117); BILIRUBIN,TOTAL 1.8 mg/dL (0.2-1); CHOLESTEROL 213 mg/dL (50-200); HDL CHOLESTEROL 70 mg/dL (40-60); LDL CHOLESTEROL (ONLY SJRH) 112 mg/dL (5-100); PHOSPHOROUS 1.4 mg/dL (2.5-4.9); SGOT/AST 36 U/L (15-37); SGPT/ALT 55 U/L (13-61); TRIGLYCERIDES 100 mg/dL (0-150)
[2020-09-02 08:00] LABS: ANION GAP 9 MMOL/L (8-16); TOT PROT 6.6 g/dl (6.4-8.2)
[2020-09-02 08:02] LABS: POTASSIUM 2.6 mmol/L (3.5-5.1)
--- NOTE | 2020-09-02 08:53 | PN ---
Teaching Attending Note Name of Resident: Herman Amador ATTENDING PHYSICIAN STATEMENT I saw and evaluated the patient. I reviewed the resident's note and discussed the case with the resident. I agree with the resident's findings and plan as documented. SUBJECTIVE: This patient is a 55yom with PMhx of HTN, HLD, CAD s/p PCI with (2 stents placed ~2009), pancreatitis 07/2019, gastritis, cirrhosis, EtOH use disorder presented with epigastric and chest pain. Patient is feeling better. OBJECTIVE: Vital Signs Temperature 98.7 F 09/02/20 08:49 Pulse Rate 85 09/02/20 08:00 Respiratory Rate 18 09/02/20 08:00 Blood Pressure 167/98 09/02/20 08:00 O2 Sat by Pulse Oximetry (%) 98 09/02/20 08:00 PE: per resident's note CBCD WBC 7.4 K/mm3 (4.0-10.0) 09/02/20 05:38 RBC 4.35 M/mm3 (4.00-5.60) 09/02/20 05:38 Hgb 13.3 GM/dL (11.7-16.9) 09/02/20 05:38 Hct 38.0 % (35.4-49) D 09/02/20 05:38 MCV 87.4 fl (80-96) 09/02/20 05:38 MCHC 34.9 g/dl (32.0-35.9) 09/02/20 05:38 RDW 19.8 % (11.9-15.9) H 09/02/20 05:38 Plt Count 171 K/MM3 (134-434) 09/02/20 05:38 MPV 7.4 fl (7.5-11.1) L 09/02/20 05:38 CMP Sodium 134 mmol/L (136-145) L 09/02/20 05:38 Potassium 2.6 mmol/L (3.5-5.1) L* 09/02/20 05:38 Chloride 91 mmol/L (98-107) L 09/02/20 05:38 Carbon Dioxide 34 mmol/L (21-32) H 09/02/20 05:38 Anion Gap 9 MMOL/L (8-16) 09/02/20 05:38 BUN 16.1 mg/dL (7-18) 09/02/20 05:38 Creatinine 1.0 mg/dL (0.55-1.3) 09/02/20 05:38 Random Glucose 143 mg/dL (74-106) H 09/02/20 05:38 Calcium 8.6 mg/dL (8.5-10.1) 09/02/20 05:38 Total Bilirubin 1.8 mg/dL (0.2-1) H 09/02/20 05:38 AST 36 U/L (15-37) 09/02/20 05:38 ALT 55 U/L (13-61) 09/02/20 05:38 Alkaline Phosphatase 78 U/L (45-117) 09/02/20 05:38 Total Protein 6.6 g/dl (6.4-8.2) 09/02/20 05:38 Albumin 3.8 g/dl (3.4-5.0) 09/02/20 05:38 CARDIAC ENZYMES Creatine Kinase 76 U/L (26-308) 09/02/20 05:38 Troponin I < 0.02 ng/ml (0.00-0.05) 09/02/20 05:38 Current Medications Generic Name Dose Route Start Last Admin Trade Name Freq PRN Reason Stop Dose Admin Aspirin 81 mg 09/02/20 10:00 Ecotrin - PO DAILY [facility] Atorvastatin Calcium 20 mg 09/01/20 22:00 09/01/20 21:01 Lipitor - PO 20 mg HS [facility] Administration Benzocaine/Menthol 1 each 09/01/20 21:01 09/02/20 01:44 Cepacol Lozenge - MM 1 each PRN PRN Administration SORE THROAT Folic Acid 1 mg 09/02/20 10:00 Folic Acid - PO DAILY [facility] Guaifenesin 5 ml 09/02/20 03:27 09/02/20 03:42 Diabetic Tussin Dm - PO 5 ml Q6H PRN Administration COUGH Heparin Sodium (Porcine) 5,000 unit 09/02/20 06:00 09/02/20 06:57 Heparin - SQ 5,000 unit TID [facility]RA Administration Sodium Chloride 1,000 mls @ 83 mls/hr 09/01/20 18:15 09/01/20 18:20 Normal Saline - IV 83 mls/hr ASDIR [facility] Administration Potassium Phosphate 30 mm/ 510 mls @ 62.5 mls/hr 09/02/20 08:40 Sodium Chloride IVPB 09/02/20 16:49 ONCE ONE Insulin Aspart 0 vial 09/01/20 22:00 09/02/20 06:58 Novolog Vial Sliding Scale - SQ Not Given ACHS [facility] Protocol Multivitamins/Minerals/Vitamin C 1 tab 09/02/20 10:00 Tab-A-Vit - PO DAILY [facility] Pantoprazole Sodium 40 mg 09/02/20 10:00 Protonix - PO DAILY [facility] Tamsulosin HCl 0.4 mg 09/02/20 08:30 Flomax - PO DAILY@0830 [facility] Thiamine HCl 100 mg 09/02/20 10:00 Vitamin B1 - PO DAILY [facility] Home Medications Medication Instructions Recorded Folic Acid - 1 mg PO DAILY #0 tablet 12/19/12 Tamsulosin HCl 0.4 mg PO DAILY 11/24/15 Carvedilol [Coreg -] 25 mg PO BID #60 tablet 10/25/16 Lancets/Blood Glucose Strips [Fora 1 each [facility] #90 combo..pkg 05/07/17 [id number] Strp-Lnct] Atorvastatin Ca [Lipitor] 20 mg PO HS 07/24/18 Aspirin Coated [Ecotrin -] 81 mg PO DAILY #30 tablet.ec 02/19/19 Finasteride 5 mg PO DAILY 09/01/20 Fluticasone Propionate [24 Hour 9.9 ml NS DAILY 09/01/20 Allergy] Insulin Glargine,Hum.rec.anlog 30 unit SQ DAILY 09/01/20 [Basaglar Kwikpen U-100] Insulin Glargine,Hum.rec.anlog 20 units SQ TID 09/01/20 [Lantus Solostar PEN (NF)] Metformin HCl [Glucophage] 500 mg PO BID 09/01/20 Multivitamin [Tab-A-Alicia] 1 each PO DAILY 09/01/20 Pantoprazole Sodium [Protonix] 40 mg PO DAILY 09/01/20 Thiamine HCl [B-1] 100 mg PO DAILY 09/01/20 Laboratory Tests 07/23/18 07/24/18 07/25/18 21:43 06:25 06:40 Sodium Potassium 3.0 L D 3.6 BUN Creatinine Hemoglobin A1c % Phosphorus 3.1 D Magnesium 1.3 L D 1.9 D 1.8 Total Bilirubin Direct Bilirubin Troponin I Cholesterol Total LDL Cholesterol HDL Cholesterol 09/01/20 09/02/20 09/02/20 18:56 01:10 05:38 Sodium 132 L 134 L Potassium 2.8 L* 2.6 L* BUN 16.1 Creatinine 1.0 Hemoglobin A1c % Phosphorus 1.4 L Magnesium 1.5 L Total Bilirubin 1.8 H Direct Bilirubin Troponin I < 0.02 < 0.02 Cholesterol 213 H Total LDL Cholesterol 112 H HDL Cholesterol 70 H 09/02/20 09/02/20 05:38 05:38 Sodium Potassium BUN Creatinine Hemoglobin A1c % 7.4 H Phosphorus Magnesium Total Bilirubin Direct Bilirubin 0.7 H Troponin I Cholesterol Total LDL Cholesterol HDL Cholesterol Laboratory Tests 09/02/20 05:38 Potassium 2.6 L* Phosphorus 1.4 L Magnesium 1.5 L Abdominal US: no sonographic evidence of cholelithiasis or acute cholecystitis, diffuse hepatic steatosis is noted CT of abdomen and pelvis: very athersclerotic coronary artery calcifications are seen. resolution of acute pancreatitis is seen. Prominent diffuse hepatic steatosis, colonic diverticulosis, small umbilical hernia containing fat only. Abdominal US: no cholelithiasis , no cholecystitis ASSESSMENT AND PLAN: Patient is a 55yom with PMhx of HTN, HLD, CAD s/p PCI (2 stents placed ~2009), pancreatitis 07/2019, gastritis, cirrhosis, EtOH use disorder presented to the ED. with the epigastric and chest pain. #Electrolyte disorder: replete mag, potassium, phos.1.4, mag 1.5, K 2.6 , repeat labs in am #Epigastric pain : Ct abdomen pelvis the read as above. with hx of esophageal ulcer as per dR joyce's note to continue with protonix po #Nausea/ vomiting: improved with NAD #Acute chest pain r/o ACS ; 4 set of trops are negative , as per cardio no further intervention needed #BEVERLY: 1.4 -->1.0 today #Elevated T. bili #Prolonged with QTc 447, keep electrolyte k above 4.0 , mag above 2.2 #Acute transaminitis: trended down DVT Px: Heparin sq
--- NOTE | 2020-09-02 09:30 | CON.GI ---
Consult Consult Specialty:: GI - History of Present Illness Chief Complaint: abdominal pain History of Present Illness: 55 y.o. M PMH HTN, HLD, CAD s/p PCI (2 stents placed ~2009), pancreatitis 07/2019, gastritis, cirrhosis, EtOH use disorder presenting with epigastric and chest pain. Patient states the epigastric pain has been occurring for the last 10 days. 8 days ago he presented to the [facility] ED with similar symptoms, was diagnosed with gastritis and was sent home with PO protonix and zofran. Since leaving the ED his epigastric pain has not improved and he has become more nauseous with episodes of NBNB emesis. Lying down makes the pain worse; pain is not exacerbated or improved with leaning forward. The patient has been having limited PO intake since these symptoms started. He denies drinking any alcohol in the last 10 days. Yesterday, pt reports he had 1 episode of sharp substernal, nonradiating chest pain that self resolved after about 20 minutes. s/p EGD 2016( Dr Edmond, esophagitis with linear ulcerations) Patient ate his entire [facility] this afternoon. Complains of abd pain and bloating. - Past Medical History CLIP COATER: Yes: Seizure (ALCOHOL WITHDRAWAL,FREQUENT BLACKOUTS). No: CVA Cardio/Vascular: Yes: CAD (2 stents placed [place] 2013), HTN, Hyperlipdemia. 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 [employer] History of Recent Travel: No Home Medications - Allergies Allergies/Adverse Reactions: Allergies Allergy/AdvReac Type Severity Reaction Status Date / Time No Known Allergies Allergy Verified 09/01/20 12:05 - Home Medications Home Medications: Ambulatory Orders Folic Acid - 1 mg PO DAILY #0 tablet 12/19/12 Tamsulosin HCl 0.4 mg PO DAILY 11/24/15 Carvedilol [Coreg -] 25 mg PO BID #60 tablet 10/25/16 Lancets/Blood Glucose Strips [Fora [id number] Strp-Lnct] 1 each [facility] #90 combo..pkg 05/07/17 Atorvastatin Ca [Lipitor] 20 mg PO HS 07/24/18 Aspirin Coated [Ecotrin -] 81 mg PO DAILY #30 tablet.ec 02/19/19 Finasteride 5 mg PO DAILY 09/01/20 Fluticasone Propionate [24 Hour Allergy] 9.9 ml NS DAILY 09/01/20 Insulin Glargine,Hum.rec.anlog [Basaglar Kwikpen U-100] 30 unit SQ DAILY 09/01/20 Insulin Glargine,Hum.rec.anlog [Lantus Solostar PEN (NF)] 20 units SQ TID 09/01/20 Metformin HCl [Glucophage] 500 mg PO BID 09/01/20 Multivitamin [Tab-A-Alicia] 1 each PO DAILY 09/01/20 Pantoprazole Sodium [Protonix] 40 mg PO DAILY 09/01/20 Thiamine HCl [B-1] 100 mg PO DAILY 09/01/20 Physical Exam-GI Vital Signs: Vital Signs Temperature 98.7 F 09/02/20 08:49 Pulse Rate 85 09/02/20 08:00 Respiratory Rate 18 09/02/20 08:00 Blood Pressure 167/98 09/02/20 08:00 O2 Sat by Pulse Oximetry (%) 98 09/02/20 08:00 Constitutional: Yes: Obese Eyes: Yes: Conjunctiva Clear HENT: Yes: Atraumatic, Tonsillar Exudate Cardiovascular: Yes: Regular Rate and Rhythm Respiratory: Yes: CTA Bilaterally ...Palpate: Yes: Soft, Tenderness (--epriumbilical). No: Firm/Rigid, Guarding, Hepatomegaly, Mass, Splenomegaly, Tenderness, Epigastium Labs: CBC, BMP 09/02/20 05:38 09/02/20 05:38 CBC,CMP WBC 7.4 K/mm3 (4.0-10.0) 09/02/20 05:38 RBC 4.35 M/mm3 (4.00-5.60) 09/02/20 05:38 Hgb 13.3 GM/dL (11.7-16.9) 09/02/20 05:38 Hct 38.0 % (35.4-49) D 09/02/20 05:38 MCV 87.4 fl (80-96) 09/02/20 05:38 MCH 30.5 pg (25.7-33.7) 09/02/20 05:38 MCHC 34.9 g/dl (32.0-35.9) 09/02/20 05:38 RDW 19.8 % (11.9-15.9) H 09/02/20 05:38 Plt Count 171 K/MM3 (134-434) 09/02/20 05:38 MPV 7.4 fl (7.5-11.1) L 09/02/20 05:38 Absolute Neuts (auto) 3.8 K/mm3 (1.5-8.0) 09/02/20 05:38 Neutrophils % 51.2 % (42.8-82.8) D 09/02/20 05:38 Lymphocytes % 37.5 % (8-40) D 09/02/20 05:38 Monocytes % 10.4 % (3.8-10.2) H 09/02/20 05:38 Eosinophils % 0.5 % (0-4.5) D 09/02/20 05:38 Basophils % 0.4 % (0-2.0) 09/02/20 05:38 Nucleated RBC % 0 % (0-0) 09/02/20 05:38 Sodium 134 mmol/L (136-145) L 09/02/20 05:38 Potassium 2.6 mmol/L (3.5-5.1) L* 09/02/20 05:38 Chloride 91 mmol/L (98-107) L 09/02/20 05:38 Carbon Dioxide 34 mmol/L (21-32) H 09/02/20 05:38 Anion Gap 9 MMOL/L (8-16) 09/02/20 05:38 BUN 16.1 mg/dL (7-18) 09/02/20 05:38 Creatinine 1.0 mg/dL (0.55-1.3) 09/02/20 05:38 Est GFR (CKD-EPI)AfAm 96.40 09/02/20 05:38 Est GFR (CKD-EPI)NonAf 83.18 09/02/20 05:38 POC Glucometer 182 UNITS (80-120) 09/02/20 11:25 Random Glucose 143 mg/dL (74-106) H 09/02/20 05:38 Hemoglobin A1c % 7.4 % (4.2-6.3) H 09/02/20 05:38 Calcium 8.6 mg/dL (8.5-10.1) 09/02/20 05:38 Phosphorus 1.4 mg/dL (2.5-4.9) L 09/02/20 05:38 Magnesium 1.5 mg/dL (1.8-2.4) L 09/02/20 05:38 Total Bilirubin 1.8 mg/dL (0.2-1) H 09/02/20 05:38 Direct Bilirubin 0.7 mg/dL (0.0-0.2) H 09/02/20 05:38 AST 36 U/L (15-37) 09/02/20 05:38 ALT 55 U/L (13-61) 09/02/20 05:38 Alkaline Phosphatase 78 U/L (45-117) 09/02/20 05:38 Creatine Kinase 76 U/L (26-308) 09/02/20 05:38 Creatine Kinase Index No Result Required. 09/01/20 13:07 CK-MB (CK-2) < 1.0 ng/mL (0.5-3.6) 09/01/20 13:07 Troponin I < 0.02 ng/ml (0.00-0.05) 09/02/20 05:38 Total Protein 6.6 g/dl (6.4-8.2) 09/02/20 05:38 Albumin 3.8 g/dl (3.4-5.0) 09/02/20 05:38 Triglycerides 100 mg/dL (0-150) 09/02/20 05:38 Cholesterol 213 mg/dL (50-200) H 09/02/20 05:38 Total LDL Cholesterol 112 mg/dL (5-100) H 09/02/20 05:38 HDL Cholesterol 70 mg/dL (40-60) H 09/02/20 05:38 Lipase 67 U/L (73-393) L 09/01/20 13:07 Problem List - Problems (1) Abdominal pain Assessment/Plan: r/o stress gastritis , history linear esophageal ulcers R> Pantoprazole 40mg daily simethicone [address] Edmond will take over his care in am of esophageal ulcers Code(s): R10.9 - UNSPECIFIED ABDOMINAL PAIN
[2020-09-02] MEDS: PANTOPRAZOLE SODIUM 40 MG VIAL IVPUSH SCH (09:45)
[2020-09-02] MEDS: THIAMINE HCL 100 MG TABLET (FP) PO SCH (09:45)
[2020-09-02] MEDS: TAMSULOSIN HCL 0.4 MG CAP PO SCH (09:45)
[2020-09-02] MEDS: ASPIRIN COATED 81 MG TABLET.EC PO SCH (09:45)
[2020-09-02] MEDS: FOLIC ACID 1 MG TABLET (FP) PO SCH (09:46)
[2020-09-02] MEDS ORDERED: PANTOPRAZOLE 40 MG TABLET PO SCH (10:00)
[2020-09-02] MEDS ORDERED: MAGNESIUM 2GM/50ML STERILE WATER IVPB IVPB ONE (10:00)
[2020-09-02] MEDS ORDERED: MULTIVITAMINS (DAILY MVI) TABLET (FP) PO SCH (10:00)
[2020-09-02] MEDS ORDERED: POTASSIUM PHOSPHATE 30 MM in SODIUM CHLORIDE 500 ML IVPB ONE (11:00)
--- NOTE | 2020-09-02 11:20 | PN ---
Physical Exam: SUBJECTIVE: Patient seen and examined, pt endorses he would like to eat and that he is hungry. He admits to having small BM yesterday without any color changes. Afebrile overnight. No complaints. OBJECTIVE: Vital Signs Period Temp Pulse Resp BP Sys/Mccoy Pulse Ox Last 24 Hr 98.1 F-98.8 F 84-108 16-19 113-167/74-98 98-100 GENERAL: The patient is awake, alert, and fully oriented, in no acute distress. LUNGS: Breath sounds equal, clear to auscultation bilaterally, no wheezes, no crackles, no accessory muscle use. HEART: Regular rate and rhythm, S1, S2 without murmur, rub or gallop. ABDOMEN: Soft, nontender, nondistended. EXTREMITIES: 2+ pulses, warm, well-perfused, no edema. Laboratory Results - last 24 hr Active Medications Generic Name Dose Route Start Last Admin Trade Name Freq PRN Reason Stop Dose Admin Aspirin 81 mg 09/02/20 10:00 09/02/20 09:45 Ecotrin - PO 81 mg DAILY [facility] Administration Atorvastatin Calcium 20 mg 09/01/20 22:00 09/01/20 21:01 Lipitor - PO 20 mg HS [facility] Administration Benzocaine/Menthol 1 each 09/01/20 21:01 09/02/20 01:44 Cepacol Lozenge - MM 1 each PRN PRN Administration SORE THROAT Folic Acid 1 mg 09/02/20 10:00 09/02/20 09:46 Folic Acid - PO 1 mg DAILY [facility] Administration Guaifenesin 5 ml 09/02/20 03:27 09/02/20 03:42 Diabetic Tussin Dm - PO 5 ml Q6H PRN Administration COUGH Heparin Sodium (Porcine) 5,000 unit 09/02/20 06:00 09/02/20 06:57 Heparin - SQ 5,000 unit TID [facility] Administration Sodium Chloride 1,000 mls @ 83 mls/hr 09/01/20 18:15 09/01/20 18:20 Normal Saline - IV 83 mls/hr ASDIR [facility] Administration Potassium Phosphate 30 mm/ 510 mls @ 62.5 mls/hr 09/02/20 11:00 Sodium Chloride IVPB 09/02/20 19:09 ONCE ONE Insulin Aspart 0 vial 09/01/20 22:00 09/02/20 06:58 Novolog Vial Sliding Scale - SQ Not Given ACHS [facility] Protocol Pantoprazole Sodium 40 mg 09/02/20 10:00 09/02/20 09:45 Protonix Iv IVPUSH 40 mg DAILY [facility] Administration Tamsulosin HCl 0.4 mg 09/02/20 08:30 09/02/20 09:45 Flomax - PO 0.4 mg DAILY@0830 [facility] Administration Thiamine HCl 100 mg 09/02/20 10:00 09/02/20 09:45 Vitamin B1 - PO 100 mg DAILY [facility] Administration ASSESSMENT/PLAN: 55 y.o. M PMH HTN, HLD, CAD s/p PCI (2 stents placed ~2009), pancreatitis 07/2019 , gastritis, cirrhosis, EtOH use disorder presenting with epigastric and chest pain. #Epigastric pain with N/V -worse w/ lying flat likely 2/2 gastritis vs stress ulcers given hx of linear ulcers in esophagus -CT abdomen obtained to r/o intraabdominal pathology in setting of leukocytosis, elevated t.bili,d bili but no evidence of CBD dilation on imaging or cholelithiasis/abscess/diverticulitis noted. - Simethicone 80 qid, protonix 40 daily for possible stress ulcer given hx of linear esophageal ulcers on prior EGD and absence of pathology on CT abdomen with continued epigastric tenderness -encourage upright positioning after meals -Trial of Tigan; avoid qtc prolonging agents in setting of prolonged qtc-likely 2/2 electrolyte abnormalities - MG, PhOS repleted lytes abnormal likely in setting of ETOH chronic use. #Chest pain r/o ACS -s/p 1 episode chest pain, now resolved -EKG showing NSR rate 98bpm, RBBB seen on prior ekg, new bifascicular block. Qtc prolonged 518 -cardio Dr. Ortiz not concerned for ACS after trops X 4 negative -last echo done 07/2019 showing EF 60-65%, trace MR/ TR - continue statin consider increasing dose given diabetic with LDL >70 here. #BEVERLY -Cr stable baseline ~0.6 -trend daily -IVF hydration #Hypomagnesemia -repleted -f/u repeat in AM #EtOH abuse -counselled on importance of discontinuing use -continue MV/ thiamine/ folic acid (home meds) -no active signs of withdrawal #CAD -continue daily aspirin #HTN -patient on carvedilol at home, unsure of dose -will need AM med rec #HLD -continue atorvastatin 20mg HS #DM -on home metformin, hold while inpatient -ISS BGMs ACHS -f/u HbA1c #BPH continue tamsulosin & finasteride #FEN -NS @85cc/hr -trend & replete lytes prn -NPO for now until CT a/p; if negative, diabetic/ sodium controlled diet #PPX -DVT: heparin sq -GI: ppi 40mg PO daily #Dispo telemetry Visit type - Emergency Visit Emergency Visit: Yes ED Registration Date: 09/02/20 Care time: The patient presented to the Emergency Department on the above date and was hospitalized for further evaluation of their emergent condition. - New Patient This patient is new to me today: Yes Date on this admission: 09/02/20 - Critical Care Critical Care patient: No - Discharge Referral Referred to [facility] Med P.C.: No ATTENDING PHYSICIAN STATEMENT I saw and evaluated the patient. I reviewed the resident's note and discussed the case with the resident. I agree with the resident's findings and plan as documented. SUBJECTIVE: OBJECTIVE: ASSESSMENT AND PLAN:
[2020-09-02] MEDS ORDERED: INSULIN (NOVOLOG) ASPART 100 UNITS/ML 10ML VIAL ONE (11:30)
--- NOTE | 2020-09-02 13:10 | CON.CARD ---
Cardiology Consult (text) - Consultation Consultation Note: Consultation Note: Chief Complaint: epigastric pain, chest pain, vomiting History of Present Illness: 55 year old male with significant past medical history of HTN, HPL, CAD s/p prior LAD PCI several years ago, ETOH abuse who presents with epigastric pain, vomiting. Symptoms have been going on for the last 10 days. Also complained of chest pain yesterday lasting a few minutes that was sharp, not radiating. No palps dizzy loc pnd orthopnea le edema sob or cp currently. recent admission to [facility] for similar symptoms, diagnosed with gastritis. - Past Medical History [employer]: Yes: Seizure (ALCOHOL WITHDRAWAL,FREQUENT BLACKOUTS). No: CVA Cardio/Vascular: Yes: CAD, HTN, Hyperlipdemia. No: AFIB, CHF Renal/: Yes: Renal Inusuff Psych: Yes: Addictions (ALCOHOL) ros: per hpi; no fever [place] vision changes, muscle pain gib hematuria rash, no nasal congestion - Alcohol/Substance Use Hx Alcohol Use: Yes - Smoking History Smoking history: Former smoker Home Medications - Allergies Allergies/Adverse Reactions: Allergies Allergy/AdvReac Type Severity Reaction Status Date / Time No Known Allergies Allergy Verified 09/01/20 12:05 Home Medications Medication Instructions Recorded Folic Acid - 1 mg PO DAILY #0 tablet 12/19/12 Tamsulosin HCl 0.4 mg PO DAILY 11/24/15 Carvedilol [Coreg -] 25 mg PO BID #60 tablet 10/25/16 Lancets/Blood Glucose Strips [Fora 1 each [facility] #90 combo..pkg 05/07/17 [id number] Strp-Lnct] Atorvastatin Ca [Lipitor] 20 mg PO HS 07/24/18 Aspirin Coated [Ecotrin -] 81 mg PO DAILY #30 tablet.ec 02/19/19 Finasteride 5 mg PO DAILY 09/01/20 Fluticasone Propionate [24 Hour 9.9 ml NS DAILY 09/01/20 Allergy] Insulin Glargine,Hum.rec.anlog 30 unit SQ DAILY 09/01/20 [Basaglar Kwikpen U-100] Insulin Glargine,Hum.rec.anlog 20 units SQ TID 09/01/20 [Lantus Solostar PEN (NF)] Metformin HCl [Glucophage] 500 mg PO BID 09/01/20 Multivitamin [Tab-A-Alicia] 1 each PO DAILY 09/01/20 Pantoprazole Sodium [Protonix] 40 mg PO DAILY 09/01/20 Thiamine HCl [B-1] 100 mg PO DAILY 09/01/20 - Risk Factors Known Risk Factors: Yes: Age, Hypercholesterolemia, Hypertension, Physical Inactivity Vital Signs Period Temp Pulse Resp BP Sys/Mccoy Pulse Ox Last 24 Hr 98.6 F-98.8 F 84-86 16-19 135-167/83-98 98-100 nad no jvd rrr s1s2 no mrg cta bl nl eff aao3 no le e/c/c abd nt nd pos bs no jaundice diaphoresis pos dp pt no carotid bruits not agitated Laboratory Last Values WBC 7.4 K/mm3 (4.0-10.0) 09/02/20 05:38 RBC 4.35 M/mm3 (4.00-5.60) 09/02/20 05:38 Hgb 13.3 GM/dL (11.7-16.9) 09/02/20 05:38 Hct 38.0 % (35.4-49) D 09/02/20 05:38 MCV 87.4 fl (80-96) 09/02/20 05:38 MCH 30.5 pg (25.7-33.7) 09/02/20 05:38 MCHC 34.9 g/dl (32.0-35.9) 09/02/20 05:38 RDW 19.8 % (11.9-15.9) H 09/02/20 05:38 Plt Count 171 K/MM3 (134-434) 09/02/20 05:38 MPV 7.4 fl (7.5-11.1) L 09/02/20 05:38 Absolute Neuts (auto) 3.8 K/mm3 (1.5-8.0) 09/02/20 05:38 Neutrophils % 51.2 % (42.8-82.8) D 09/02/20 05:38 Lymphocytes % 37.5 % (8-40) D 09/02/20 05:38 Monocytes % 10.4 % (3.8-10.2) H 09/02/20 05:38 Eosinophils % 0.5 % (0-4.5) D 09/02/20 05:38 Basophils % 0.4 % (0-2.0) 09/02/20 05:38 Nucleated RBC % 0 % (0-0) 09/02/20 05:38 Sodium 134 mmol/L (136-145) L 09/02/20 05:38 Potassium 2.6 mmol/L (3.5-5.1) L* 09/02/20 05:38 Chloride 91 mmol/L (98-107) L 09/02/20 05:38 Carbon Dioxide 34 mmol/L (21-32) H 09/02/20 05:38 Anion Gap 9 MMOL/L (8-16) 09/02/20 05:38 BUN 16.1 mg/dL (7-18) 09/02/20 05:38 Creatinine 1.0 mg/dL (0.55-1.3) 09/02/20 05:38 Est GFR (CKD-EPI)AfAm 96.40 09/02/20 05:38 Est GFR (CKD-EPI)NonAf 83.18 09/02/20 05:38 POC Glucometer 182 UNITS (80-120) 09/02/20 11:25 Random Glucose 143 mg/dL (74-106) H 09/02/20 05:38 Hemoglobin A1c % 7.4 % (4.2-6.3) H 09/02/20 05:38 Calcium 8.6 mg/dL (8.5-10.1) 09/02/20 05:38 Phosphorus 1.4 mg/dL (2.5-4.9) L 09/02/20 05:38 Magnesium 1.5 mg/dL (1.8-2.4) L 09/02/20 05:38 Total Bilirubin 1.8 mg/dL (0.2-1) H 09/02/20 05:38 Direct Bilirubin 0.7 mg/dL (0.0-0.2) H 09/02/20 05:38 AST 36 U/L (15-37) 09/02/20 05:38 ALT 55 U/L (13-61) 09/02/20 05:38 Alkaline Phosphatase 78 U/L (45-117) 09/02/20 05:38 Creatine Kinase 76 U/L (26-308) 09/02/20 05:38 Creatine Kinase Index No Result Required. 09/01/20 13:07 CK-MB (CK-2) < 1.0 ng/mL (0.5-3.6) 09/01/20 13:07 Troponin I < 0.02 ng/ml (0.00-0.05) 09/02/20 05:38 Total Protein 6.6 g/dl (6.4-8.2) 09/02/20 05:38 Albumin 3.8 g/dl (3.4-5.0) 09/02/20 05:38 Triglycerides 100 mg/dL (0-150) 09/02/20 05:38 Cholesterol 213 mg/dL (50-200) H 09/02/20 05:38 Total LDL Cholesterol 112 mg/dL (5-100) H 09/02/20 05:38 HDL Cholesterol 70 mg/dL (40-60) H 09/02/20 05:38 Lipase 67 U/L (73-393) L 09/01/20 13:07 Urine Color Fate 09/01/20 22:10 Urine Appearance Cloudy 09/01/20 22:10 Urine pH 5.5 (5.0-8.0) 09/01/20 22:10 Ur Specific [place] 1.036 (1.010-1.035) H 09/01/20 22:10 Urine Protein 2+ (NEGATIVE) H 09/01/20 22:10 Urine Glucose (UA) Negative (NEGATIVE) 09/01/20 22:10 Urine Ketones Trace (NEGATIVE) H 09/01/20 22:10 Urine Blood Negative (NEGATIVE) 09/01/20 22:10 Urine Nitrite Positive (NEGATIVE) H 09/01/20 22:10 Urine Bilirubin 2+ (NEGATIVE) H 09/01/20 22:10 Urine Urobilinogen 1.0 mg/dL (0.2-1.0) 09/01/20 22:10 Ur Leukocyte Esterase Negative (NEGATIVE) 09/01/20 22:10 Urine WBC (Auto) 8 /uL (0-25.8) 09/01/20 22:10 Urine RBC (Auto) 6 /uL (0-23.9) 09/01/20 22:10 Urine Casts (Auto) 25 /uL (0-3.1) 09/01/20 22:10 U Epithel Cells (Auto) 15 /uL (0-25.1) 09/01/20 22:10 Ur Random Urea Nitrogn 853 mg/dL (350-1000) 09/01/20 22:10 Opiates Screen Negative ng/ml (IKZFAC=167) 09/01/20 22:10 Methadone Screen Negative ng/ml (SNAJZI=275) 09/01/20 22:10 Acetaminophen < 2.0 ug/ml 09/01/20 13:45 Barbiturate Screen Negative ng/ml (WRPJVY=173) 09/01/20 22:10 Phencyclidine Screen Negative ng/ml (CUTOFF=25) 09/01/20 22:10 Ur Amphetamines Screen Negative ng/ml (PDLOYA=157) 09/01/20 22:10 MDMA (Ecstasy) Screen Negative ng/ml (DDOLLY=467) 09/01/20 22:10 Benzodiazepines Screen Negative ng/ml (IBCKGE=543) 09/01/20 22:10 Cocaine Screen Negative ng/ml (JZWJHC=206) 09/01/20 22:10 U Marijuana (THC) Screen Negative ng/ml (CUTOFF=50) 09/01/20 22:10 ecg: sr, RBBB, LAFB, prolonged QTc 518 ms cxr: no chf Echo 08/2015: normal LV/RV size and function, no sig valv abn echo 01/2019 tds, nl LV/RV function, tr MR, tr TR tele: sinus Assessment/Plan 55 year old male with significant past medical history of HTN, HPL, CAD s/p prior LAD PCI several years ago, ETOH abuse who presents with epigastric pain, vomiting. chest pain - has history of atypical CP in setting of vomiting - EKG no ischemic changes, trop neg x4 - no further ischemic workup at this point abdominal pain, vomiting - manage per primary - GI consulted CAD: -prior PCI of LAD (for ? angina vs atyp cp with incidental finding on cath); residual nonobstr dz then with no angina or ischemia since -cont BB, statin, asa hld: -cont statin HTN: -cont bb etoh abuse: -cessation recommended prolonged QT - likely in setting of low K, Mg, recently received zofran - replete lytes for K>4, Mg >2 - avoid QT prolonging agents
[2020-09-02] MEDS ORDERED: CARVEDILOL 25 MG TABLET (FP) PO ONE (17:08)
[2020-09-02] MEDS: SODIUM CHLORIDE 1,000 ML IV SCH (18:34)
[2020-09-02] MEDS: ATORVASTATIN CA 10 MG TABLET (FP) PO SCH (21:43)
--- NOTE | 2020-09-02 21:48 | EKG ---
Test Reason : Blood Pressure : / mmHG Vent. Rate : 098 BPM Atrial Rate : 098 BPM P-R Int : 170 ms QRS Dur : 150 ms QT Int : 406 ms P-R-T Axes : 041 -47 022 degrees QTc Int : 518 ms SINUS RHYTHM WITH FUSION COMPLEXES RIGHT BUNDLE BRANCH BLOCK LEFT ANTERIOR FASCICULAR BLOCK BIFASCICULAR BLOCK INFERIOR INFARCT (CITED ON OR BEFORE 16-FEB-2019) ANTEROSEPTAL INFARCT , AGE UNDETERMINED ABNORMAL ECG WHEN COMPARED WITH ECG OF 03-AUG-2019 08:52, SIGNIFICANT CHANGES HAVE OCCURRED Confirmed by Samia Ortiz ([id number]) on 09/02/2020 9:48:11 PM Referred By: Confirmed By:Samia Ortiz
[2020-09-02] MEDS ORDERED: CARVEDILOL 25 MG TABLET (FP) PO SCH (22:00)
[2020-09-02] MEDS ORDERED: SIMETHICONE 80 MG TAB.CHEW (FP) PO ONE (22:54)
[2020-09-03] MEDS ORDERED: POTASSIUM PHOSPHATE 30 MM in SODIUM CHLORIDE 250 ML IVPB ONE (00:01)
[2020-09-03] MEDS: HEPARIN NA (PORCINE) 5,000 UNITS/ML 1ML VIAL SQ SCH ×3 (06:27→21:24)
[2020-09-03] MEDS: INSULIN SLIDING SCALE (NOVOLOG) 1 VIAL SQ SCH ×4 (06:28→21:38)
[2020-09-03 07:41] LABS: BASO % 1.2 % (0-2.0); EOS % 1.3 % (0-4.5); HEMATOCRIT 35.3 % (35.4-49); HEMOGLOBIN 12.3 GM/dL (11.7-16.9); LYMPH % 45.5 % (8-40); MCH 30.6 pg (25.7-33.7); MCHC 34.9 g/dl (32.0-35.9); MEAN CELL VOLUME 87.9 fl (80-96); MEAN PLT VOLUME 7.5 fl (7.5-11.1); MONO % 7.6 % (3.8-10.2); NEUT % 44.4 % (42.8-82.8); PLATELET COUNT 184 K/MM3 (134-434); RBC 4.02 M/mm3 (4.00-5.60); RDW 19.7 % (11.9-15.9); WHITE BLOOD COUNT 6.2 K/mm3 (4.0-10.0)
[2020-09-03 08:09] LABS: ALBUMIN 3.1 g/dl (3.4-5.0); BLOOD UREA NITROGEN 14.1 mg/dL (7-18); CALCIUM 8.7 mg/dL (8.5-10.1); CREATININE 0.7 mg/dL (0.55-1.3); MAGNESIUM 1.3 mg/dL (1.8-2.4); PHOSPHOROUS 4.9 mg/dL (2.5-4.9); POTASSIUM 3.3 mmol/L (3.5-5.1); TOT PROT 6.2 g/dl (6.4-8.2)
[2020-09-03] MEDS ORDERED: POTASSIUM CHLORIDE TABS 20 MEQ TABLET.ER (FP) PO ONE (08:16)
--- NOTE | 2020-09-03 09:01 | PN ---
Teaching Attending Note Name of Resident: Yusra Askew ATTENDING PHYSICIAN STATEMENT I saw and evaluated the patient. I reviewed the resident's note and discussed the case with the resident. I agree with the resident's findings and plan as documented. SUBJECTIVE: Patient is feeling better but still still feels uncomfortable. No throwing up b ut continues to feel nauseas on and off. OBJECTIVE: Vital Signs Temperature 98.8 F 09/03/20 05:00 Pulse Rate 79 09/03/20 05:00 Respiratory Rate 16 09/03/20 05:00 Blood Pressure 165/86 09/03/20 05:00 O2 Sat by Pulse Oximetry (%) 99 09/03/20 05:00 Vital Signs Temperature 98.7 F 09/03/20 13:00 Pulse Rate 76 09/03/20 13:00 Respiratory Rate 18 09/03/20 13:00 Blood Pressure 125/73 09/03/20 13:00 O2 Sat by Pulse Oximetry (%) 99 09/03/20 13:00 PE: per resident's note CBCD WBC 6.2 K/mm3 (4.0-10.0) 09/03/20 05:50 RBC 4.02 M/mm3 (4.00-5.60) 09/03/20 05:50 Hgb 12.3 GM/dL (11.7-16.9) 09/03/20 05:50 Hct 35.3 % (35.4-49) L 09/03/20 05:50 MCV 87.9 fl (80-96) 09/03/20 05:50 MCHC 34.9 g/dl (32.0-35.9) 09/03/20 05:50 RDW 19.7 % (11.9-15.9) H 09/03/20 05:50 Plt Count 184 K/MM3 (134-434) 09/03/20 05:50 MPV 7.5 fl (7.5-11.1) 09/03/20 05:50 CMP Sodium 137 mmol/L (136-145) 09/03/20 05:50 Potassium 3.3 mmol/L (3.5-5.1) L 09/03/20 05:50 Chloride 96 mmol/L (98-107) L 09/03/20 05:50 Carbon Dioxide 35 mmol/L (21-32) H 09/03/20 05:50 Anion Gap 6 MMOL/L (8-16) L 09/03/20 05:50 BUN 14.1 mg/dL (7-18) 09/03/20 05:50 Creatinine 0.7 mg/dL (0.55-1.3) 09/03/20 05:50 Random Glucose 136 mg/dL (74-106) H 09/03/20 05:50 Calcium 8.7 mg/dL (8.5-10.1) 09/03/20 05:50 Total Bilirubin 1.0 mg/dL (0.2-1) 09/03/20 05:50 AST 36 U/L (15-37) 09/03/20 05:50 ALT 49 U/L (13-61) 09/03/20 05:50 Alkaline Phosphatase 84 U/L (45-117) 09/03/20 05:50 Total Protein 6.2 g/dl (6.4-8.2) L 09/03/20 05:50 Albumin 3.1 g/dl (3.4-5.0) L 09/03/20 05:50 CARDIAC ENZYMES Creatine Kinase 76 U/L (26-308) 09/02/20 05:38 Troponin I < 0.02 ng/ml (0.00-0.05) 09/02/20 05:38 Current Medications Generic Name Dose Route Start Last Admin Trade Name Freq PRN Reason Stop Dose Admin Aspirin 81 mg 09/02/20 10:00 09/02/20 09:45 Ecotrin - PO 81 mg DAILY [facility] Administration Atorvastatin Calcium 20 mg 09/01/20 22:00 09/02/20 21:43 Lipitor - PO 20 mg HS [facility] Administration Benzocaine/Menthol 1 each 09/01/20 21:01 09/02/20 01:44 Cepacol Lozenge - MM 1 each PRN PRN Administration SORE THROAT Carvedilol 25 mg 09/03/20 10:00 Coreg - PO BID [facility] Finasteride 5 mg 09/03/20 10:00 Proscar - PO DAILY [facility] Folic Acid 1 mg 09/02/20 10:00 09/02/20 09:46 Folic Acid - PO 1 mg DAILY [facility] Administration Guaifenesin 5 ml 09/02/20 03:27 10/11/20 15:19 Diabetic Tussin Dm - PO 5 ml dc'd today since elevated BP Q6H PRN Administration COUGH Heparin Sodium (Porcine) 5,000 unit 09/02/20 06:00 09/03/20 06:27 Heparin - SQ 5,000 unit TID [facility]ER[facility] Administration Sodium Chloride 1,000 mls @ 83 mls/hr 09/01/20 18:15 09/02/20 18:34 Normal Saline - IV 83 mls/hr ASDIR [facility] Administration Insulin Aspart 0 vial 09/01/20 22:00 09/03/20 06:28 Novolog Vial Sliding Scale - SQ Not Given ACHS [facility] Protocol Magnesium Sulfate 2 gm 09/03/20 09:00 Magnesium Sulfate IVPB 09/03/20 11:01 Q2H [facility] Pantoprazole Sodium 40 mg 09/02/20 10:00 09/02/20 09:45 Protonix Iv IVPUSH 40 mg DAILY [facility] Administration Tamsulosin HCl 0.4 mg 09/02/20 08:30 09/02/20 09:45 Flomax - PO 0.4 mg DAILY@0830 [facility] Administration Thiamine HCl 100 mg 09/02/20 10:00 09/02/20 09:45 Vitamin B1 - PO 100 mg DAILY [facility] Administration Home Medications Medication Instructions Recorded Folic Acid - 1 mg PO DAILY #0 tablet 12/19/12 Tamsulosin HCl 0.4 mg PO DAILY 11/24/15 Carvedilol [Coreg -] 25 mg PO BID #60 tablet 10/25/16 Lancets/Blood Glucose Strips [Fora 1 each AC #90 combo..pkg 05/07/17 [id number] Strp-Lnct] Atorvastatin Ca [Lipitor] 20 mg PO HS 07/24/18 Aspirin Coated [Ecotrin -] 81 mg PO DAILY #30 tablet.ec 02/19/19 Finasteride 5 mg PO DAILY 09/01/20 Fluticasone Propionate [24 Hour 9.9 ml NS DAILY 09/01/20 Allergy] Insulin Glargine,Hum.rec.anlog 30 unit SQ DAILY 09/01/20 [Basaglar Kwikpen U-100] Insulin Glargine,Hum.rec.anlog 20 units SQ TID 09/01/20 [Lantus Solostar PEN (NF)] Metformin HCl [Glucophage] 500 mg PO BID 09/01/20 Multivitamin [Tab-A-Alicia] 1 each PO DAILY 09/01/20 Pantoprazole Sodium [Protonix] 40 mg PO DAILY 09/01/20 Thiamine HCl [B-1] 100 mg PO DAILY 09/01/20 Laboratory Tests 09/01/20 09/01/20 09/01/20 13:07 18:00 18:56 Sodium 130 L 132 L Potassium 4.2 2.8 L* BUN Creatinine 1.4 H Hemoglobin A1c % Phosphorus Magnesium 1.3 L Total Bilirubin Direct Bilirubin Troponin I < 0.02 Cholesterol Total LDL Cholesterol HDL Cholesterol 09/02/20 09/02/20 09/02/20 01:10 05:38 05:38 Sodium 134 L Potassium 2.6 L* BUN 16.1 Creatinine 1.0 Hemoglobin A1c % 7.4 H Phosphorus 1.4 L Magnesium 1.5 L Total Bilirubin 1.8 H Direct Bilirubin Troponin I < 0.02 < 0.02 Cholesterol 213 H Total LDL Cholesterol 112 H HDL Cholesterol 70 H 09/02/20 09/03/20 05:38 05:50 Sodium 137 Potassium 3.3 L BUN Creatinine 0.7 Hemoglobin A1c % Phosphorus 4.9 Magnesium 1.3 L Total Bilirubin Direct Bilirubin 0.7 H Troponin I Cholesterol Total LDL Cholesterol HDL Cholesterol Abdominal US: no sonographic evidence of cholelithiasis or acute cholecystitis, diffuse hepatic steatosis is noted CT of abdomen and pelvis: very athersclerotic coronary artery calcifications are seen. resolution of acute pancreatitis is seen. Prominent diffuse hepatic steatosis, colonic diverticulosis, small umbilical hernia containing fat only. Abdominal US: no cholelithiasis , no cholecystitis ASSESSMENT AND PLAN: Patient is a 55yom with PMhx of HTN, HLD, CAD s/p PCI (2 stents placed ~2009), pancreatitis 07/2019, gastritis, cirrhosis, EtOH use disorder presented to the ED. with the epigastric and chest pain. #Electrolyte disorder: continue to replete mag, potassium, phos.1.4, mag 1.5, K 2.6 , repeat labs in am #Epigastric pain : Ct abdomen pelvis the read as above. with hx of esophageal ulcer as per dR joyce's note to continue with protonix po #Nausea/ vomiting: improved with NAD #Hx of ETOH on thiamine #Acute chest pain r/o ACS ; 4 set of trops are negative , as per cardio no further intervention needed at this time #BEVERLY: 1.4 -->1.0 today #Elevated T. bili: improved #Prolonged with QTc 447--:518 avoid prolongating agents, will need to correct electrolytes, keep electrolyte k above 4.0 , mag above 2.2 #Acute transaminitis: trended down #HTN: Uncontrolled , repeat BP is better controlled continue Coreg. will dc IVF NS, will dc robitussuin DM since can elevate BP #Hx of T2DM continue current regimen SS with coverage, will hold off on Lantus for now, since patient is going on and off nausea/vomiting. #Hx of HLD/BPH continue current regimen DVT Px: Heparin sq follow up the EKG in am since QTc is 518 on 09/01
[2020-09-03] MEDS: THIAMINE HCL 100 MG TABLET (FP) PO SCH (09:28)
[2020-09-03] MEDS: FINASTERIDE 5 MG TABLET (FP) PO SCH (09:28)
[2020-09-03] MEDS: CARVEDILOL 25 MG TABLET (FP) PO SCH ×2 (09:28→21:23)
[2020-09-03] MEDS: FOLIC ACID 1 MG TABLET (FP) PO SCH (09:28)
[2020-09-03] MEDS: PANTOPRAZOLE SODIUM 40 MG VIAL IVPUSH SCH (09:29)
[2020-09-03] MEDS: MAGNESIUM SULF 50% (8.12 MEQ/2 ML-1 GM VIAL) IVPB ONE ×2 (09:33→11:40)
[2020-09-03] MEDS: MAGNESIUM SULF 50% (8.12 MEQ/2 ML-1 GM VIAL) IVPB SCH ×2 (09:34→11:40)
[2020-09-03] MEDS: guaiFENesin/D-M SUGAR-FREE/ACLHOL-FREE 118 ML BOTTLE PO PRN (09:35)
[2020-09-03] MEDS: TAMSULOSIN HCL 0.4 MG CAP PO SCH (09:37)
[2020-09-03] MEDS: ASPIRIN COATED 81 MG TABLET.EC PO SCH (09:53)
--- NOTE | 2020-09-03 12:38 | PN ---
Progress Note (short form) - Note Progress Note: Chief Complaint: epigastric pain, chest pain, vomiting History of Present Illness: 55 year old male with significant past medical history of HTN, HPL, CAD s/p prior LAD PCI several years ago, ETOH abuse who presents with epigastric pain, vomiting. Symptoms have been going on for the last 10 days. Also complained of chest pain yesterday lasting a few minutes that was sharp, not radiating. No palps dizzy loc pnd orthopnea le edema sob or cp currently. recent admission to [facility] for similar symptoms, diagnosed with gastritis. s: no cp sob palps dizzy Current Medications Generic Name Dose Route Start Last Admin Trade Name Freq PRN Reason Stop Dose Admin Aspirin 81 mg 09/02/20 10:00 09/03/20 09:53 Ecotrin - PO 81 mg DAILY [facility] Administration Atorvastatin Calcium 20 mg 09/01/20 22:00 09/02/20 21:43 Lipitor - PO 20 mg HS [facility] Administration Benzocaine/Menthol 1 each 09/01/20 21:01 09/02/20 01:44 Cepacol Lozenge - MM 1 each PRN PRN Administration SORE THROAT Carvedilol 25 mg 09/03/20 10:00 09/03/20 09:28 Coreg - PO 25 mg BID [facility] Administration Finasteride 5 mg 09/03/20 10:00 09/03/20 09:28 Proscar - PO 5 mg DAILY [facility] Administration Folic Acid 1 mg 09/02/20 10:00 09/03/20 09:28 Folic Acid - PO 1 mg DAILY [facility] Administration Guaifenesin 5 ml 09/02/20 03:27 09/03/20 09:35 Diabetic Tussin Dm - PO 5 ml Q6H PRN Administration COUGH Heparin Sodium (Porcine) 5,000 unit 09/02/20 06:00 09/03/20 06:27 Heparin - SQ 5,000 unit TID [facility] Administration Sodium Chloride 1,000 mls @ 83 mls/hr 09/01/20 18:15 09/02/20 18:34 Normal Saline - IV 83 mls/hr ASDIR [facility] Administration Insulin Aspart 0 vial 09/01/20 22:00 09/03/20 11:51 Novolog Vial Sliding Scale - SQ Not Given ACHS [facility] Protocol Pantoprazole Sodium 40 mg 09/02/20 10:00 09/03/20 09:29 Protonix Iv IVPUSH 40 mg DAILY [facility] Administration Tamsulosin HCl 0.4 mg 09/02/20 08:30 09/03/20 09:37 Flomax - PO 0.4 mg DAILY@0830 [facility] Administration Thiamine HCl 100 mg 09/02/20 10:00 09/03/20 09:28 Vitamin B1 - PO 100 mg DAILY [facility] Administration Vital Signs Period Temp Pulse Resp BP Sys/Mccoy Pulse Ox Last 24 Hr 98.7 F-98.8 F 79-97 16-20 131-165/83-101 97-99 nad no jvd rrr s1s2 no mrg cta bl nl eff aao3 no le e/c/c abd nt nd pos bs no jaundice diaphoresis pos dp pt no carotid bruits not agitated CBC, BMP 09/03/20 05:50 09/03/20 05:50 ecg: sr, RBBB, LAFB, prolonged QTc 518 ms cxr: no chf Echo 08/2015: normal LV/RV size and function, no sig valv abn echo 01/2019 tds, nl LV/RV function, tr MR, tr TR tele: sinus Assessment/Plan 55 year old male with significant past medical history of HTN, HPL, CAD s/p prior LAD PCI several years ago, ETOH abuse who presents with epigastric pain, vomiting. chest pain - has history of atypical CP in setting of vomiting - EKG no ischemic changes, trop neg x4 - no further ischemic workup at this point abdominal pain, vomiting - manage per primary/GI - GI consulted CAD: -prior PCI of LAD (for ? angina vs atyp cp with incidental finding on cath); residual nonobstr dz then with no angina or ischemia since -cont BB, statin, asa hld: -cont statin HTN: -cont bb etoh abuse: -cessation recommended prolonged QT - likely in setting of low K, Mg, recently received zofran - replete lytes for K>4, Mg >2 - avoid QT prolonging agents
[2020-09-03] MEDS ORDERED: MAGNESIUM SULF 50% (8.12 MEQ/2 ML-1 GM VIAL) IVPB ONE (15:20)
--- NOTE | 2020-09-03 15:40 | PN ---
Physical Exam: SUBJECTIVE: Patient seen and examined at bedside, reports some pain with food intake at oropahrynx. No fevers, chills, nausea, vomiting. No acute events overnight. OBJECTIVE: Vital Signs Period Temp Pulse Resp BP Sys/Mccoy Pulse Ox Last 24 Hr 98.7 F-98.8 F 76-97 16-20 125-165/73-101 97-99 GENERAL: The patient is awake, alert, and fully oriented, in no acute distress. HEAD: Normal with no signs of trauma. EYES: PERRL, extraocular movements intact, sclera anicteric, conjunctiva clear. ENT: Ears normal, nares patent, oropharynx clear without exudates, moist mucous membranes, no visible lesions NECK: Trachea midline, full range of motion, supple. LUNGS: Breath sounds equal, clear to auscultation bilaterally, no wheezes, no crackles, no accessory muscle use. HEART: Regular rate and rhythm, S1, S2 without murmur, rub or gallop. ABDOMEN: Soft, nontender, nondistended, normoactive bowel sounds, no guarding, no rebound EXTREMITIES: 2+ pulses, warm, well-perfused, no edema. NEUROLOGICAL: Cranial nerves II through XII grossly intact. Normal speech, gait not observed. PSYCH: Normal mood, normal affect. SKIN: Warm, dry, normal turgor, no rashes or lesions noted Laboratory Results - last 24 hr 09/02/20 09/02/20 09/03/20 17:23 22:13 05:50 WBC RBC Hgb Hct MCV MCH MCHC RDW Plt Count MPV Absolute Neuts (auto) Neutrophils % Lymphocytes % Monocytes % Eosinophils % Basophils % Nucleated RBC % Sodium 137 Potassium 3.3 L Chloride 96 L Carbon Dioxide 35 H Anion Gap 6 L BUN 14.1 Creatinine 0.7 Est GFR (CKD-EPI)AfAm 121.41 Est GFR (CKD-EPI)NonAf 104.76 POC Glucometer 183 119 Random Glucose 136 H Calcium 8.7 Phosphorus 4.9 Magnesium 1.3 L Total Bilirubin 1.0 AST 36 ALT 49 Alkaline Phosphatase 84 Total Protein 6.2 L Albumin 3.1 L 09/03/20 09/03/20 09/03/20 05:50 06:21 11:47 WBC 6.2 RBC 4.02 Hgb 12.3 Hct 35.3 L MCV 87.9 MCH 30.6 MCHC 34.9 RDW 19.7 H Plt Count 184 MPV 7.5 Absolute Neuts (auto) 2.8 Neutrophils % 44.4 Lymphocytes % 45.5 H D Monocytes % 7.6 Eosinophils % 1.3 D Basophils % 1.2 Nucleated RBC % 0 Sodium Potassium Chloride Carbon Dioxide Anion Gap BUN Creatinine Est GFR (CKD-EPI)AfAm Est GFR (CKD-EPI)NonAf POC Glucometer 133 145 Random Glucose Calcium Phosphorus Magnesium Total Bilirubin AST ALT Alkaline Phosphatase Total Protein Albumin Active Medications Generic Name Dose Route Start Last Admin Trade Name Freq PRN Reason Stop Dose Admin Aspirin 81 mg 09/02/20 10:00 09/03/20 09:53 Ecotrin - PO 81 mg DAILY SIERRA Administration Atorvastatin Calcium 20 mg 09/01/20 22:00 09/02/20 21:43 Lipitor - PO 20 mg HS SIERRA Administration Benzocaine/Menthol 1 each 09/01/20 21:01 09/02/20 01:44 Cepacol Lozenge - MM 1 each PRN PRN Administration SORE THROAT Carvedilol 25 mg 09/03/20 10:00 09/03/20 09:28 Coreg - PO 25 mg BID SIERRA Administration Finasteride 5 mg 09/03/20 10:00 09/03/20 09:28 Proscar - PO 5 mg DAILY [facility]ER[facility] Administration Folic Acid 1 mg 09/02/20 10:00 09/03/20 09:28 Folic Acid - PO 1 mg DAILY [facility] Administration Guaifenesin 5 ml 09/02/20 03:27 09/03/20 09:35 Diabetic Tussin Dm - PO 5 ml Q6H PRN Administration COUGH Heparin Sodium (Porcine) 5,000 unit 09/02/20 06:00 09/03/20 13:37 Heparin - SQ 5,000 unit TID [facility]ER[facility] Administration Sodium Chloride 1,000 mls @ 83 mls/hr 09/01/20 18:15 09/02/20 18:34 Normal Saline - IV 83 mls/hr ASDIR [facility]ER[facility] Administration Insulin Aspart 0 vial 09/01/20 22:00 09/03/20 11:51 Novolog Vial Sliding Scale - SQ Not Given ACHS [facility]ER[facility] Protocol Pantoprazole Sodium 40 mg 09/02/20 10:00 09/03/20 09:29 Protonix Iv IVPUSH 40 mg DAILY [facility] Administration Tamsulosin HCl 0.4 mg 09/02/20 08:30 09/03/20 09:37 Flomax - PO 0.4 mg DAILY@0830 [facility] Administration Thiamine HCl 100 mg 09/02/20 10:00 09/03/20 09:28 Vitamin B1 - PO 100 mg DAILY [facility]ER[facility] Administration Imagin/10 CTAP: No definite CT findings of acute pathology are noted. Very extensive atherosclerotic coronary artery calcifications are seen. Interval resolution of acute pancreatitis is seen in comparison to a CT exam of 08/08/2019. In regards to the current study mild/early acute pancreatitis may not be demonstrable on CT. There is prominent diffuse hepatic steatosis. Colonic diverticulosis. Small umbilical hernia containing fat only. ASSESSMENT/PLAN: 55 Y M with a PMH of HTN, HLD, CAD s/p PCI (2 stents placed ~2009), pancreatitis (08/11), gastritis, cirrhosis, EtOH use disorder presented with epigastric and chest pain, admitted for Epigastric pain likely 2/2 to alcohol gastritis vs stress ulcers vs r/o ACS #Epigastric pain - likely 2/2 alcoholic gastritis vs stress ulcers EGD in 2016 showed linear linear esophageal ulcers - CTAP: No acute pathology - Continue with Simethicone 80 qid and protonix 40 daily - QTc 447: likely 2/2 to low K+ and Mg and recent Zofran, will avoid qtc prolonging agents and replete lytes for K>4, Mg >2 #Chest pain r/o ACS - resolved - initial EKG showing NSR rate 98bpm, RBBB seen on prior ekg, new bifascicular block. Qtc prolonged 518 - trop neg x4 - 08/11 Echo: EF 60-65% - Cardio following No further w/u at this point #BEVERLY-Resolved - Cr stable, today 0.7 - will Continue to monitor #Hx of EtOH abuse - counselled on importance of discontinuing use - continuewith home meds: MV/ thiamine/ folic acid - no active signs of withdrawal #Hx of CAD -Continue with Ectorin 81mg QD, Coreg 25mg BID, Lipitor 20mg HS #Hx of HTN - Continue with Coreg 25mg BID #Hx of HLD - Continue with Lipitor 20mg HS #Hx of DM - Holding home meds: metformin - BGM + ISS - HbA1c 7.4 #Hx of BPH - continue with tamsulosin 0.4mg & finasteride 5mg FEN - No standing fluids - will Continue to monitor electrolytes: K+ 3.3, Mg 1.3- repleted, goal K>4, Mg >2 - diabetic/ sodium controlled diet PPX -DVT: heparin sq -GI: Protonix 40mg IV daily Dispo - Will continue to monitor in Telemetry Visit type - Emergency Visit Emergency Visit: Yes ED Registration Date: 09/02/20 Care time: The patient presented to the Emergency Department on the above date and was hospitalized for further evaluation of their emergent condition. - New Patient This patient is new to me today: No - Critical Care Critical Care patient: No - Discharge Referral Referred to [facility] Med P.C[facility] No ATTENDING PHYSICIAN STATEMENT I saw and evaluated the patient. I reviewed the resident's note and discussed the case with the resident. I agree with the resident's findings and plan as documented. SUBJECTIVE: OBJECTIVE: ASSESSMENT AND PLAN:
--- NOTE | 2020-09-03 16:31 | PN.GI ---
GI Progress Note Subjective: No acute events No vomiting No abdominal pain Correction to Dr. Montanez's consultation: Eric had EGD performed by Dr. Swanson 02/06: reflux esophagitis - Objective Vital Signs: Vital Signs Temperature 98.7 F 09/03/20 13:00 Pulse Rate 76 09/03/20 13:00 Respiratory Rate 18 09/03/20 13:00 Blood Pressure 125/73 09/03/20 13:00 O2 Sat by Pulse Oximetry (%) 99 09/03/20 13:00 Constitutional: Calm Eyes: No: Sclera Icterus Cardiovascular: Yes: Regular Rate and Rhythm Respiratory: Yes: CTA Bilaterally Gastrointestinal Inspection: No: Distention ...Auscultate: Yes: Normoactive Bowel Sounds ...Palpate: Yes: Soft. No: Hepatomegaly, Splenomegaly, Tenderness Edema: No (No LE edema) Neurological: Yes: Alert Labs: CBC, BMP 09/03/20 05:50 09/03/20 05:50 Problem List - Problems (1) Abdominal pain Assessment/Plan: Resolved: Tolerating PO Advise: Complete alcohol cessation Protonix 40mg daily Carafate 1g BID for 1 week Outpatient follow-up if continued improvement, otherwise obtain esophagram with upper GI series Code(s): R10.9 - UNSPECIFIED ABDOMINAL PAIN
[2020-09-03] MEDS: SUCRALFATE 1 GM/10 ML UNIT DOSE CUPS PO SCH (21:23)
[2020-09-03] MEDS: ATORVASTATIN CA 10 MG TABLET (FP) PO SCH (21:24)
[2020-09-04] MEDS ORDERED: MELATONIN 5 MG TABLETS PO ONE (02:09)
[2020-09-04] MEDS: HEPARIN NA (PORCINE) 5,000 UNITS/ML 1ML VIAL SQ SCH ×3 (05:56→22:06)
[2020-09-04] MEDS: INSULIN SLIDING SCALE (NOVOLOG) 1 VIAL SQ SCH ×4 (06:40→22:06)
[2020-09-04 07:42] LABS: BASO % 1.8 % (0-2.0); EOS % 2.2 % (0-4.5); HEMATOCRIT 37.9 % (35.4-49); HEMOGLOBIN 13.1 GM/dL (11.7-16.9); LYMPH % 40.3 % (8-40); MCHC 34.6 g/dl (32.0-35.9); MEAN CELL VOLUME 89.5 fl (80-96); MEAN PLT VOLUME 7.2 fl (7.5-11.1); MONO % 8.7 % (3.8-10.2); PLATELET COUNT 194 K/MM3 (134-434); RBC 4.24 M/mm3 (4.00-5.60); RDW 19.8 % (11.9-15.9); WHITE BLOOD COUNT 6.3 K/mm3 (4.0-10.0)
[2020-09-04 08:09] LABS: ALBUMIN 3.3 g/dl (3.4-5.0); BLOOD UREA NITROGEN 10.1 mg/dL (7-18); CALCIUM 8.8 mg/dL (8.5-10.1); CREATININE 0.6 mg/dL (0.55-1.3); MAGNESIUM 1.6 mg/dL (1.8-2.4); PHOSPHOROUS 3.8 mg/dL (2.5-4.9); TOT PROT 6.6 g/dl (6.4-8.2)
[2020-09-04] MEDS ORDERED: PT OWN MED DRAWER 7, Y5N ONE ×2 (08:34→21:13)
[2020-09-04] MEDS: TAMSULOSIN HCL 0.4 MG CAP PO SCH (08:35)
[2020-09-04] MEDS: SUCRALFATE 1 GM/10 ML UNIT DOSE CUPS PO SCH ×2 (09:00→22:06)
[2020-09-04] MEDS: THIAMINE HCL 100 MG TABLET (FP) PO SCH (09:01)
[2020-09-04] MEDS: FOLIC ACID 1 MG TABLET (FP) PO SCH (09:01)
[2020-09-04] MEDS: PANTOPRAZOLE 40 MG TABLET PO SCH (09:01)
[2020-09-04] MEDS: FINASTERIDE 5 MG TABLET (FP) PO SCH (09:01)
[2020-09-04] MEDS: CARVEDILOL 25 MG TABLET (FP) PO SCH ×2 (09:01→22:06)
[2020-09-04] MEDS: ASPIRIN COATED 81 MG TABLET.EC PO SCH (09:01)
[2020-09-04] MEDS ORDERED: POTASSIUM CHLORIDE TABS 20 MEQ TABLET.ER (FP) PO ONE (09:41)
[2020-09-04] MEDS ORDERED: MAGNESIUM SULF 50% (8.12 MEQ/2 ML-1 GM VIAL) IVPB ONE (09:42)
--- NOTE | 2020-09-04 10:02 | EKG ---
Test Reason : Blood Pressure : / mmHG Vent. Rate : 076 BPM Atrial Rate : 076 BPM P-R Int : 178 ms QRS Dur : 150 ms QT Int : 426 ms P-R-T Axes : 029 -25 005 degrees QTc Int : 479 ms NORMAL SINUS RHYTHM RIGHT BUNDLE BRANCH BLOCK INFERIOR INFARCT (CITED ON OR BEFORE 16-FEB-2019) ABNORMAL ECG WHEN COMPARED WITH ECG OF 01-SEP-2020 12:21, FUSION COMPLEXES ARE NO LONGER PRESENT LEFT ANTERIOR FASCICULAR BLOCK IS NO LONGER PRESENT CRITERIA FOR ANTEROSEPTAL INFARCT ARE NO LONGER PRESENT Confirmed by MD Gee Daniel ([id number]) on 09/04/2020 10:01:53 AM Referred By: Confirmed By:Lenard Gee MD
[2020-09-04] MEDS: KCL 10 MEQ IVPB 10 MEQ/100 ML INFUS.BAG IVPB SCH ×2 (11:16→12:29)
--- NOTE | 2020-09-04 14:42 | PN ---
Progress Note (short form) - Note Progress Note: Chief Complaint: epigastric pain, chest pain, vomiting s: no cp sob palps dizzy Current Medications Generic Name Dose Route Start Last Admin Trade Name Kenq PRN Reason Stop Dose Admin Aspirin 81 mg 09/02/20 10:00 09/04/20 09:01 Ecotrin - PO 81 mg DAILY SIERRA Administration Atorvastatin Calcium 20 mg 09/01/20 22:00 09/03/20 21:24 Lipitor - PO 20 mg HS SIERRA Administration Benzocaine/Menthol 1 each 09/01/20 21:01 09/02/20 01:44 Cepacol Lozenge - MM 1 each PRN PRN Administration SORE THROAT Carvedilol 25 mg 09/03/20 10:00 09/04/20 09:01 Coreg - PO 25 mg BID SIERRA Administration Finasteride 5 mg 09/03/20 10:00 09/04/20 09:01 Proscar - PO 5 mg DAILY SIERRA Administration Folic Acid 1 mg 09/02/20 10:00 09/04/20 09:01 Folic Acid - PO 1 mg DAILY [facility]ERRA Administration Heparin Sodium (Porcine) 5,000 unit 09/02/20 06:00 09/04/20 13:54 Heparin - SQ 5,000 unit TID SIERRA Administration Insulin Aspart 0 vial 09/01/20 22:00 09/04/20 11:30 Novolog Vial Sliding Scale - SQ 4 unit ACHS SIERRA Administration Protocol Pantoprazole Sodium 40 mg 09/04/20 10:00 09/04/20 09:01 Protonix - PO 40 mg DAILY SIERRA Administration Sucralfate 1 gm 09/03/20 22:00 09/04/20 09:00 Carafate Oral Suspension - PO 09/08/20 21:59 1 gm BID SIERRA Administration Tamsulosin HCl 0.4 mg 09/02/20 08:30 09/04/20 08:35 Flomax - PO 0.4 mg DAILY@0830 SIERRA Administration Thiamine HCl 100 mg 09/02/20 10:00 09/04/20 09:01 Vitamin B1 - PO 100 mg DAILY SIERRA Administration Vital Signs Period Temp Pulse Resp BP Sys/Mccoy Pulse Ox Last 24 Hr 98.8 F-99.4 F 71-86 14-20 114-169/57-114 97-98 nad no jvd rrr s1s2 no mrg cta bl nl eff aao3 no le e/c/c abd nt nd pos bs no jaundice diaphoresis pos dp pt no carotid bruits not agitated Laboratory Last Values WBC 6.3 K/mm3 (4.0-10.0) 09/04/20 06:00 RBC 4.24 M/mm3 (4.00-5.60) 09/04/20 06:00 Hgb 13.1 GM/dL (11.7-16.9) 09/04/20 06:00 Hct 37.9 % (35.4-49) 09/04/20 06:00 MCV 89.5 fl (80-96) 09/04/20 06:00 MCH 31.0 pg (25.7-33.7) 09/04/20 06:00 MCHC 34.6 g/dl (32.0-35.9) 09/04/20 06:00 RDW 19.8 % (11.9-15.9) H 09/04/20 06:00 Plt Count 194 K/MM3 (134-434) 09/04/20 06:00 MPV 7.2 fl (7.5-11.1) L 09/04/20 06:00 Absolute Neuts (auto) 2.9 K/mm3 (1.5-8.0) 09/04/20 06:00 Neutrophils % 47.0 % (42.8-82.8) 09/04/20 06:00 Lymphocytes % 40.3 % (8-40) H 09/04/20 06:00 Monocytes % 8.7 % (3.8-10.2) 09/04/20 06:00 Eosinophils % 2.2 % (0-4.5) 09/04/20 06:00 Basophils % 1.8 % (0-2.0) 09/04/20 06:00 Nucleated RBC % 0 % (0-0) 09/04/20 06:00 Sodium 136 mmol/L (136-145) 09/04/20 06:00 Potassium 3.0 mmol/L (3.5-5.1) L 09/04/20 06:00 Chloride 96 mmol/L (98-107) L 09/04/20 06:00 Carbon Dioxide 34 mmol/L (21-32) H 09/04/20 06:00 Anion Gap 6 MMOL/L (8-16) L 09/04/20 06:00 BUN 10.1 mg/dL (7-18) 09/04/20 06:00 Creatinine 0.6 mg/dL (0.55-1.3) 09/04/20 06:00 Est GFR (CKD-EPI)AfAm 129.36 09/04/20 06:00 Est GFR (CKD-EPI)NonAf 111.61 09/04/20 06:00 POC Glucometer 250 UNITS (80-120) 09/04/20 11:29 Random Glucose 122 mg/dL (74-106) H 09/04/20 06:00 Hemoglobin A1c % 7.4 % (4.2-6.3) H 09/02/20 05:38 Calcium 8.8 mg/dL (8.5-10.1) 09/04/20 06:00 Phosphorus 3.8 mg/dL (2.5-4.9) 09/04/20 06:00 Magnesium 1.6 mg/dL (1.8-2.4) L 09/04/20 06:00 Total Bilirubin 1.0 mg/dL (0.2-1) 09/04/20 06:00 Direct Bilirubin 0.7 mg/dL (0.0-0.2) H 09/02/20 05:38 AST 56 U/L (15-37) H 09/04/20 06:00 ALT 66 U/L (13-61) H 09/04/20 06:00 Alkaline Phosphatase 72 U/L (45-117) 09/04/20 06:00 Creatine Kinase 76 U/L (26-308) 09/02/20 05:38 Creatine Kinase Index No Result Required. 09/01/20 13:07 CK-MB (CK-2) < 1.0 ng/mL (0.5-3.6) 09/01/20 13:07 Troponin I < 0.02 ng/ml (0.00-0.05) 09/02/20 05:38 Total Protein 6.6 g/dl (6.4-8.2) 09/04/20 06:00 Albumin 3.3 g/dl (3.4-5.0) L 09/04/20 06:00 Triglycerides 100 mg/dL (0-150) 09/02/20 05:38 Cholesterol 213 mg/dL (50-200) H 09/02/20 05:38 Total LDL Cholesterol 112 mg/dL (5-100) H 09/02/20 05:38 HDL Cholesterol 70 mg/dL (40-60) H 09/02/20 05:38 Lipase 67 U/L (73-393) L 09/01/20 13:07 Urine Color [place] 09/01/20 22:10 Urine Appearance Cloudy 09/01/20 22:10 Urine pH 5.5 (5.0-8.0) 09/01/20 22:10 Ur Specific [place] 1.036 (1.010-1.035) H 09/01/20 22:10 Urine Protein 2+ (NEGATIVE) H 09/01/20 22:10 Urine Glucose (UA) Negative (NEGATIVE) 09/01/20 22:10 Urine Ketones Trace (NEGATIVE) H 09/01/20 22:10 Urine Blood Negative (NEGATIVE) 09/01/20 22:10 Urine Nitrite Positive (NEGATIVE) H 09/01/20 22:10 Urine Bilirubin 2+ (NEGATIVE) H 09/01/20 22:10 Urine Urobilinogen 1.0 mg/dL (0.2-1.0) 09/01/20 22:10 Ur Leukocyte Esterase Negative (NEGATIVE) 09/01/20 22:10 Urine WBC (Auto) 8 /uL (0-25.8) 09/01/20 22:10 Urine RBC (Auto) 6 /uL (0-23.9) 09/01/20 22:10 Urine Casts (Auto) 25 /uL (0-3.1) 09/01/20 22:10 U Epithel Cells (Auto) 15 /uL (0-25.1) 09/01/20 22:10 Ur Random Urea Nitrogn 853 mg/dL (350-1000) 09/01/20 22:10 Opiates Screen Negative ng/ml (QKJFGB=546) 09/01/20 22:10 Methadone Screen Negative ng/ml (SUMAFP=427) 09/01/20 22:10 Acetaminophen < 2.0 ug/ml 09/01/20 13:45 Barbiturate Screen Negative ng/ml (DQJDCM=093) 09/01/20 22:10 Phencyclidine Screen Negative ng/ml (CUTOFF=25) 09/01/20 22:10 Ur Amphetamines Screen Negative ng/ml (QYVXFW=005) 09/01/20 22:10 MDMA (Ecstasy) Screen Negative ng/ml (FTDRNF=247) 09/01/20 22:10 Benzodiazepines Screen Negative ng/ml (RSKPVP=376) 09/01/20 22:10 Cocaine Screen Negative ng/ml (ZKIMDR=038) 09/01/20 22:10 U Marijuana (THC) Screen Negative ng/ml (CUTOFF=50) 09/01/20 22:10 COVID-19 (SANDRA) Not detected (Not Detected) 09/01/20 15:16 ecg: sr, RBBB, LAFB, prolonged QTc 518 ms cxr: no chf Echo 08/2015: normal LV/RV size and function, no sig valv abn echo 01/2019 tds, nl LV/RV function, tr MR, tr TR tele: sinus Assessment/Plan 55 year old male with significant past medical history of HTN, HPL, CAD s/p prior LAD PCI several years ago, ETOH abuse who presents with epigastric pain, vomiting. chest pain - has history of atypical CP in setting of vomiting - EKG no ischemic changes, trop neg x4 - no further ischemic workup at this point abdominal pain, vomiting - manage per primary/GI - GI consulted CAD: -prior PCI of LAD (for ? angina vs atyp cp with incidental finding on cath); residual nonobstr dz then with no angina or ischemia since -cont BB, statin, asa hld: -cont statin HTN: -cont bb etoh abuse: -cessation recommended prolonged QT - likely in setting of low K, Mg, recently received zofran - replete lytes for K>4, Mg >2 - avoid QT prolonging agents
--- NOTE | 2020-09-04 15:37 | PN ---
Physical Exam: SUBJECTIVE: Patient seen and examined at bedside, improved pain with food intake. No fevers, chills, nausea, vomiting. No acute events overnight. OBJECTIVE: Vital Signs Period Temp Pulse Resp BP Sys/Mccoy Pulse Ox Last 24 Hr 98.8 F-99.4 F 71-86 14-20 114-169/57-114 97-98 GENERAL: The patient is awake, alert, and fully oriented, in no acute distress. HEAD: Normal with no signs of trauma. EYES: PERRL, extraocular movements intact, sclera anicteric, conjunctiva clear. ENT: Ears normal, nares patent, oropharynx clear without exudates, moist mucous membranes, no visible lesions NECK: Trachea midline, full range of motion, supple. LUNGS: Breath sounds equal, clear to auscultation bilaterally, no wheezes, no crackles, no accessory muscle use. HEART: Regular rate and rhythm, S1, S2 without murmur, rub or gallop. ABDOMEN: Soft, nontender, nondistended, normoactive bowel sounds, no guarding, no rebound EXTREMITIES: 2+ pulses, warm, well-perfused, no edema. NEUROLOGICAL: Cranial nerves II through XII grossly intact. Normal speech, gait not observed. PSYCH: Normal mood, normal affect. SKIN: Warm, dry, normal turgor, no rashes or lesions noted Laboratory Results - last 24 hr 09/03/20 09/04/20 09/04/20 21:30 06:00 06:00 WBC 6.3 RBC 4.24 Hgb 13.1 Hct 37.9 MCV 89.5 MCH 31.0 MCHC 34.6 RDW 19.8 H Plt Count 194 MPV 7.2 L Absolute Neuts (auto) 2.9 Neutrophils % 47.0 Lymphocytes % 40.3 H Monocytes % 8.7 Eosinophils % 2.2 Basophils % 1.8 Nucleated RBC % 0 Sodium 136 Potassium 3.0 L Chloride 96 L Carbon Dioxide 34 H Anion Gap 6 L BUN 10.1 Creatinine 0.6 Est GFR (CKD-EPI)AfAm 129.36 Est GFR (CKD-EPI)NonAf 111.61 POC Glucometer 175 Random Glucose 122 H Calcium 8.8 Phosphorus 3.8 Magnesium 1.6 L Total Bilirubin 1.0 AST 56 H ALT 66 H Alkaline Phosphatase 72 Total Protein 6.6 Albumin 3.3 L 09/04/20 09/04/20 06:26 11:29 WBC RBC Hgb Hct MCV MCH MCHC RDW Plt Count MPV Absolute Neuts (auto) Neutrophils % Lymphocytes % Monocytes % Eosinophils % Basophils % Nucleated RBC % Sodium Potassium Chloride Carbon Dioxide Anion Gap BUN Creatinine Est GFR (CKD-EPI)AfAm Est GFR (CKD-EPI)NonAf POC Glucometer 134 250 Random Glucose Calcium Phosphorus Magnesium Total Bilirubin AST ALT Alkaline Phosphatase Total Protein Albumin Active Medications Generic Name Dose Route Start Last Admin Trade Name Freq PRN Reason Stop Dose Admin Aspirin 81 mg 09/02/20 10:00 09/04/20 09:01 Ecotrin - PO 81 mg DAILY SIERRA Administration Atorvastatin Calcium 20 mg 09/01/20 22:00 09/03/20 21:24 Lipitor - PO 20 mg HS SIERRA Administration Benzocaine/Menthol 1 each 09/01/20 21:01 09/02/20 01:44 Cepacol Lozenge - MM 1 each PRN PRN Administration SORE THROAT Carvedilol 25 mg 09/03/20 10:00 09/04/20 09:01 Coreg - PO 25 mg BID SIERRA Administration Finasteride 5 mg 09/03/20 10:00 09/04/20 09:01 Proscar - PO 5 mg DAILY SIERRA Administration Folic Acid 1 mg 09/02/20 10:00 09/04/20 09:01 Folic Acid - PO 1 mg DAILY SIERRA Administration Heparin Sodium (Porcine) 5,000 unit 09/02/20 06:00 09/04/20 13:54 Heparin - SQ 5,000 unit TID SIERRA Administration Insulin Aspart 0 vial 09/01/20 22:00 09/04/20 11:30 Novolog Vial Sliding Scale - SQ 4 unit ACHS SIERRA Administration Protocol Pantoprazole Sodium 40 mg 09/04/20 10:00 09/04/20 09:01 Protonix - PO 40 mg DAILY SIERRA Administration Sucralfate 1 gm 09/03/20 22:00 09/04/20 09:00 Carafate Oral Suspension - PO 09/08/20 21:59 1 gm BID SIERRA Administration Tamsulosin HCl 0.4 mg 09/02/20 08:30 09/04/20 08:35 Flomax - PO 0.4 mg DAILY@0830 SIERRA Administration Thiamine HCl 100 mg 09/02/20 10:00 09/04/20 09:01 Vitamin B1 - PO 100 mg DAILY SIERRA Administration ASSESSMENT/PLAN: 55 Y M with a PMH of HTN, HLD, CAD s/p PCI (2 stents placed ~2009), pancreatitis (08/11), gastritis, cirrhosis, EtOH use disorder presented with epigastric and chest pain, admitted for Epigastric pain likely 2/2 to alcohol gastritis vs stress ulcers vs r/o ACS #Epigastric pain - likely 2/2 alcoholic gastritis vs stress ulcers EGD in 2017 showed linear linear esophageal ulcers - GI, Dr. Gimenez, following, appreciate recs Outpatient follow-up if continued improvement, otherwise obtain esophagram with upper GI series - CTAP: No acute pathology - Continue with Simethicone 80 qid and protonix 40 daily - QTc 447: likely 2/2 to low K+ and Mg and recent Zofran, will avoid qtc prolonging agents and replete lytes for K>4, Mg >2 #Chest pain r/o ACS - resolved - initial EKG showing NSR rate 98bpm, RBBB seen on prior ekg, new bifascicular block. Qtc prolonged 518 - trop neg x4 - 08/11 Echo: EF 60-65% - Cardio following No further w/u at this point #BEVERLY-Resolved - Cr stable, today 0.6 - will Continue to monitor #Hx of EtOH abuse - counselled on importance of discontinuing use - continuewith home meds: MV/ thiamine/ folic acid - no active signs of withdrawal #Hx of CAD -Continue with Ectorin 81mg QD, Coreg 25mg BID, Lipitor 20mg HS #Hx of HTN - Continue with Coreg 25mg BID #Hx of HLD - Continue with Lipitor 20mg HS #Hx of DM - Holding home meds: metformin - BGM + ISS - HbA1c 7.4 #Hx of BPH - continue with tamsulosin 0.4mg & finasteride 5mg FEN - No standing fluids - will Continue to monitor electrolytes: K+ 3.0, Mg 1.6- repleted, goal K>4, Mg >2 - diabetic/ sodium controlled diet PPX -DVT: heparin sq -GI: Protonix 40mg IV daily Dispo - Will continue to monitor in Telemetry, D/c planning. Visit type - Emergency Visit Emergency Visit: Yes ED Registration Date: 09/02/20 Care time: The patient presented to the Emergency Department on the above date and was hospitalized for further evaluation of their emergent condition. - New Patient This patient is new to me today: No - Critical Care Critical Care patient: No - Discharge Referral Referred to [facility] Med P.C.: Yes ATTENDING PHYSICIAN STATEMENT I saw and evaluated the patient. I reviewed the resident's note and discussed the case with the resident. I agree with the resident's findings and plan as documented. SUBJECTIVE: OBJECTIVE: ASSESSMENT AND PLAN:
--- NOTE | 2020-09-04 18:12 | PN ---
Teaching Attending Note Name of Resident: Watson Ma ATTENDING PHYSICIAN STATEMENT I saw and evaluated the patient. I reviewed the resident's note and discussed the case with the resident. I agree with the resident's findings and plan as documented. SUBJECTIVE: Patient feels well has no complaints. Tolerating PO intake OBJECTIVE: Vital Signs Period Temp Pulse Resp BP Sys/Mccoy Pulse Ox Last 24 Hr 98.2 F-99.4 F 72-86 14-20 114-169/57-114 97-98 Per Resident note ASSESSMENT AND PLAN: 55 y/o M with Hx of HTN, HLD, CAD s/p PCI, Pancreatitis, Gastritis, ETOH disorder who presents with epigastric pain Epigastric pain: Now resolved [place] in setting of gastritis Patient will need otupatient follow up with Gi for EGD Continue PPi ETOH abuse No signs of withdrawal Continue to monitor Chest Pain: ACS ruled out Pain now resolved Cont ASA, Coreg, Statin Electrolyte disorder Likely due to N/V Continue aggressive repletion PPx: HSQ
[2020-09-04] MEDS ORDERED: MELATONIN 5 MG TABLETS PO PRN (19:55)
[2020-09-04] MEDS: ATORVASTATIN CA 10 MG TABLET (FP) PO SCH (22:06)
[2020-09-05] MEDS: INSULIN SLIDING SCALE (NOVOLOG) 1 VIAL SQ SCH ×2 (06:10→13:00)
[2020-09-05] MEDS: HEPARIN NA (PORCINE) 5,000 UNITS/ML 1ML VIAL SQ SCH ×2 (06:16→13:58)
--- NOTE | 2020-09-05 07:36 | PN.GI ---
GI Progress Note Subjective: NO NEW COMPLAINTS - STATES HE IS FEELING BETTER ON PRESENT MEDICAL REGIME TOLERATING DIET - Objective Vital Signs: Vital Signs Temperature 98.6 F 09/05/20 06:34 Pulse Rate 76 09/05/20 06:34 Respiratory Rate 20 09/05/20 06:34 Blood Pressure 146/92 09/05/20 06:34 O2 Sat by Pulse Oximetry (%) 100 09/05/20 06:34 Constitutional: Well Nourished, No Distress, Calm Cardiovascular: Yes: WNL, Regular Rate and Rhythm Respiratory: Yes: WNL, Regular Gastrointestinal Inspection: Yes: WNL ...Auscultate: Yes: Normoactive Bowel Sounds Labs: CBC, BMP 09/04/20 06:00 09/04/20 06:00 Problem List - Problems (1) Abdominal pain Assessment/Plan: C/W PPI AND CARAFATE THERAPY DIET TOLERATED Code(s): R10.9 - UNSPECIFIED ABDOMINAL PAIN (2) Alcohol dependence with uncomplicated withdrawal Code(s): F10.230 - ALCOHOL DEPENDENCE WITH WITHDRAWAL, UNCOMPLICATED
[2020-09-05 07:52] LABS: BASO % 1.4 % (0-2.0); EOS % 3.1 % (0-4.5); HEMATOCRIT 36.4 % (35.4-49); HEMOGLOBIN 12.5 GM/dL (11.7-16.9); LYMPH % 39.5 % (8-40); MCH 30.7 pg (25.7-33.7); MCHC 34.4 g/dl (32.0-35.9); MEAN CELL VOLUME 89.2 fl (80-96); MEAN PLT VOLUME 7.3 fl (7.5-11.1); MONO % 13.2 % (3.8-10.2); NEUT % 42.8 % (42.8-82.8); PLATELET COUNT 235 K/MM3 (134-434); RBC 4.08 M/mm3 (4.00-5.60); RDW 20.6 % (11.9-15.9); WHITE BLOOD COUNT 5.6 K/mm3 (4.0-10.0)
[2020-09-05 08:42] LABS: POTASSIUM 3.8 mmol/L (3.5-5.1)
[2020-09-05 09:01] LABS: ALBUMIN 3.2 g/dl (3.4-5.0); BILIRUBIN,TOTAL 1.2 mg/dL (0.2-1); BLOOD UREA NITROGEN 13.2 mg/dL (7-18); CALCIUM 9.2 mg/dL (8.5-10.1); CREATININE 0.7 mg/dL (0.55-1.3); MAGNESIUM 1.8 mg/dL (1.8-2.4); PHOSPHOROUS 3.7 mg/dL (2.5-4.9); TOT PROT 6.3 g/dl (6.4-8.2)
[2020-09-05] MEDS: CARVEDILOL 25 MG TABLET (FP) PO SCH (09:16)
[2020-09-05] MEDS: FINASTERIDE 5 MG TABLET (FP) PO SCH (09:16)
[2020-09-05] MEDS: TAMSULOSIN HCL 0.4 MG CAP PO SCH (09:16)
[2020-09-05] MEDS: THIAMINE HCL 100 MG TABLET (FP) PO SCH (09:16)
[2020-09-05] MEDS: PANTOPRAZOLE 40 MG TABLET PO SCH (09:16)
[2020-09-05] MEDS: SUCRALFATE 1 GM/10 ML UNIT DOSE CUPS PO SCH (09:16)
[2020-09-05] MEDS: FOLIC ACID 1 MG TABLET (FP) PO SCH (09:17)
[2020-09-05] MEDS ORDERED: PT OWN MED DRAWER 7, Y5N ONE (09:26)
[2020-09-05] MEDS: ASPIRIN COATED 81 MG TABLET.EC PO SCH (09:29)
[2020-09-05 10:22] VITALS: TEMP 98.5
[2020-09-05 10:53] LABS: ANISOCYTOSIS 1+; PLATELET ESTIMATE NORMAL
--- NOTE | 2020-09-05 13:03 | PN ---
Progress Note (short form) - Note Progress Note: Chief Complaint: epigastric pain, chest pain, vomiting s: no cp sob palps dizzy Current Medications Generic Name Dose Route Start Last Admin Trade Name Kenq PRN Reason Stop Dose Admin Aspirin 81 mg 09/02/20 10:00 09/05/20 09:29 Ecotrin - PO 81 mg DAILY [facility] Administration Atorvastatin Calcium 20 mg 09/01/20 22:00 09/04/20 22:06 Lipitor - PO 20 mg HS [facility] Administration Benzocaine/Menthol 1 each 09/01/20 21:01 09/02/20 01:44 Cepacol Lozenge - MM 1 each PRN PRN Administration SORE THROAT Carvedilol 25 mg 09/03/20 10:00 09/05/20 09:16 Coreg - PO 25 mg BID [facility] Administration Finasteride 5 mg 09/03/20 10:00 09/05/20 09:16 Proscar - PO 5 mg DAILY [facility] Administration Folic Acid 1 mg 09/02/20 10:00 09/05/20 09:17 Folic Acid - PO 1 mg DAILY [facility] Administration Heparin Sodium (Porcine) 5,000 unit 09/02/20 06:00 09/05/20 06:16 Heparin - SQ 5,000 unit TID [facility] Administration Insulin Aspart 0 vial 09/01/20 22:00 09/05/20 06:10 Novolog Vial Sliding Scale - SQ Not Given ACHS [facility] Protocol Pantoprazole Sodium 40 mg 09/04/20 10:00 09/05/20 09:16 Protonix - PO 40 mg DAILY [facility] Administration Sucralfate 1 gm 09/03/20 22:00 09/05/20 09:16 Carafate Oral Suspension - PO 09/08/20 21:59 1 gm BID [facility] Administration Tamsulosin HCl 0.4 mg 09/02/20 08:30 09/05/20 09:16 Flomax - PO 0.4 mg DAILY@0830 [facility] Administration Thiamine HCl 100 mg 09/02/20 10:00 09/05/20 09:16 Vitamin B1 - PO 100 mg DAILY [facility] Administration Vital Signs Period Temp Pulse Resp BP Sys/Mccoy Pulse Ox Last 24 Hr 98.2 F-98.6 F 72-84 15-20 114-181/57-103 97-100 nad no jvd rrr s1s2 no mrg cta bl nl eff aao3 no le e/c/c abd nt nd pos bs no jaundice diaphoresis pos dp pt no carotid bruits not agitated Laboratory Last Values WBC 5.6 K/mm3 (4.0-10.0) 09/05/20 05:40 RBC 4.08 M/mm3 (4.00-5.60) 09/05/20 05:40 Hgb 12.5 GM/dL (11.7-16.9) 09/05/20 05:40 Hct 36.4 % (35.4-49) 09/05/20 05:40 MCV 89.2 fl (80-96) 09/05/20 05:40 MCH 30.7 pg (25.7-33.7) 09/05/20 05:40 MCHC 34.4 g/dl (32.0-35.9) 09/05/20 05:40 RDW 20.6 % (11.9-15.9) H 09/05/20 05:40 Plt Count 235 K/MM3 (134-434) D 09/05/20 05:40 MPV 7.3 fl (7.5-11.1) L 09/05/20 05:40 Absolute Neuts (auto) 2.4 K/mm3 (1.5-8.0) 09/05/20 05:40 Neutrophils % 42.8 % (42.8-82.8) 09/05/20 05:40 Lymphocytes % 39.5 % (8-40) 09/05/20 05:40 Monocytes % 13.2 % (3.8-10.2) H 09/05/20 05:40 Eosinophils % 3.1 % (0-4.5) 09/05/20 05:40 Basophils % 1.4 % (0-2.0) 09/05/20 05:40 Nucleated RBC % 0 % (0-0) 09/05/20 05:40 Hypochromia 0 09/05/20 05:40 Platelet Estimate Normal 09/05/20 05:40 Polychromasia 1+ 09/05/20 05:40 Anisocytosis 1+ 09/05/20 05:40 Sodium 135 mmol/L (136-145) L 09/05/20 05:40 Potassium 3.8 mmol/L (3.5-5.1) 09/05/20 05:40 Chloride 97 mmol/L (98-107) L 09/05/20 05:40 Carbon Dioxide 33 mmol/L (21-32) H 09/05/20 05:40 Anion Gap 5 MMOL/L (8-16) L 09/05/20 05:40 BUN 13.2 mg/dL (7-18) 09/05/20 05:40 Creatinine 0.7 mg/dL (0.55-1.3) 09/05/20 05:40 Est GFR (CKD-EPI)AfAm 121.41 09/05/20 05:40 Est GFR (CKD-EPI)NonAf 104.76 09/05/20 05:40 POC Glucometer 141 UNITS (80-120) 09/05/20 06:06 Random Glucose 137 mg/dL (74-106) H 09/05/20 05:40 Hemoglobin A1c % 7.4 % (4.2-6.3) H 09/02/20 05:38 Calcium 9.2 mg/dL (8.5-10.1) 09/05/20 05:40 Phosphorus 3.7 mg/dL (2.5-4.9) 09/05/20 05:40 Magnesium 1.8 mg/dL (1.8-2.4) 09/05/20 05:40 Total Bilirubin 1.2 mg/dL (0.2-1) H 09/05/20 05:40 Direct Bilirubin 0.7 mg/dL (0.0-0.2) H 09/02/20 05:38 AST 52 U/L (15-37) H 09/05/20 05:40 ALT 67 U/L (13-61) H 09/05/20 05:40 Alkaline Phosphatase 100 U/L (45-117) 09/05/20 05:40 Creatine Kinase 76 U/L (26-308) 09/02/20 05:38 Creatine Kinase Index No Result Required. 09/01/20 13:07 CK-MB (CK-2) < 1.0 ng/mL (0.5-3.6) 09/01/20 13:07 Troponin I < 0.02 ng/ml (0.00-0.05) 09/02/20 05:38 Total Protein 6.3 g/dl (6.4-8.2) L 09/05/20 05:40 Albumin 3.2 g/dl (3.4-5.0) L 09/05/20 05:40 Triglycerides 100 mg/dL (0-150) 09/02/20 05:38 Cholesterol 213 mg/dL (50-200) H 09/02/20 05:38 Total LDL Cholesterol 112 mg/dL (5-100) H 09/02/20 05:38 HDL Cholesterol 70 mg/dL (40-60) H 09/02/20 05:38 Lipase 67 U/L (73-393) L 09/01/20 13:07 Urine Color [place] 09/01/20 22:10 Urine Appearance Cloudy 09/01/20 22:10 Urine pH 5.5 (5.0-8.0) 09/01/20 22:10 Ur Specific [place] 1.036 (1.010-1.035) H 09/01/20 22:10 Urine Protein 2+ (NEGATIVE) H 09/01/20 22:10 Urine Glucose (UA) Negative (NEGATIVE) 09/01/20 22:10 Urine Ketones Trace (NEGATIVE) H 09/01/20 22:10 Urine Blood Negative (NEGATIVE) 09/01/20 22:10 Urine Nitrite Positive (NEGATIVE) H 09/01/20 22:10 Urine Bilirubin 2+ (NEGATIVE) H 09/01/20 22:10 Urine Urobilinogen 1.0 mg/dL (0.2-1.0) 09/01/20 22:10 Ur Leukocyte Esterase Negative (NEGATIVE) 09/01/20 22:10 Urine WBC (Auto) 8 /uL (0-25.8) 09/01/20 22:10 Urine RBC (Auto) 6 /uL (0-23.9) 09/01/20 22:10 Urine Casts (Auto) 25 /uL (0-3.1) 09/01/20 22:10 U Epithel Cells (Auto) 15 /uL (0-25.1) 09/01/20 22:10 Ur Random Urea Nitrogn 853 mg/dL (350-1000) 09/01/20 22:10 Opiates Screen Negative ng/ml (OVZQKT=594) 09/01/20 22:10 Methadone Screen Negative ng/ml (AGETSB=838) 09/01/20 22:10 Acetaminophen < 2.0 ug/ml 09/01/20 13:45 Barbiturate Screen Negative ng/ml (RDXLOR=836) 09/01/20 22:10 Phencyclidine Screen Negative ng/ml (CUTOFF=25) 09/01/20 22:10 Ur Amphetamines Screen Negative ng/ml (WWOROD=413) 09/01/20 22:10 MDMA (Ecstasy) Screen Negative ng/ml (QSTLXV=872) 09/01/20 22:10 Benzodiazepines Screen Negative ng/ml (XSYWTO=710) 09/01/20 22:10 Cocaine Screen Negative ng/ml (ZEFFZL=632) 09/01/20 22:10 U Marijuana (THC) Screen Negative ng/ml (CUTOFF=50) 09/01/20 22:10 COVID-19 (SANDRA) Not detected (Not Detected) 09/01/20 15:16 ecg: sr, RBBB, LAFB, prolonged QTc 518 ms cxr: no chf Echo 08/2015: normal LV/RV size and function, no sig valv abn echo 01/2019 tds, nl LV/RV function, tr MR, tr TR tele: sinus Assessment/Plan 55 year old male with significant past medical history of HTN, HPL, CAD s/p prior LAD PCI several years ago, ETOH abuse who presents with epigastric pain, vomiting. chest pain - has history of atypical CP in setting of vomiting - EKG no ischemic changes, trop neg x4 - no further ischemic workup at this point abdominal pain, vomiting - manage per primary/GI - GI consulted CAD: -prior PCI of LAD (for ? angina vs atyp cp with incidental finding on cath); residual nonobstr dz then with no angina or ischemia since -cont BB, statin, asa hld: -cont statin HTN: -cont bb etoh abuse: -cessation recommended prolonged QT - likely in setting of low K, Mg, recently received zofran - replete lytes for K>4, Mg >2 - avoid QT prolonging agents
--- NOTE | 2020-09-05 14:31 | DS ---
Physical Exam: SUBJECTIVE:Patient seen and examined at bedside, improved pain with food intake. No acute events overnight. No new complaints. wishes to go home today. OBJECTIVE: Vital Signs Period Temp Pulse Resp BP Sys/Mccoy Pulse Ox Last 24 Hr 98.2 F-98.6 F 72-82 15- 146-181/78-103 97-100 PHYSICAL EXAM GENERAL: The patient is awake, alert, and fully oriented, in no acute distress. HEAD: Normal with no signs of trauma. EYES: PERRL, extraocular movements intact, sclera anicteric, conjunctiva clear. ENT: Ears normal, nares patent, oropharynx clear without exudates, moist mucous membranes, no visible lesions NECK: Trachea midline, full range of motion, supple. LUNGS: Breath sounds equal, clear to auscultation bilaterally, no wheezes, no crackles, no accessory muscle use. HEART: Regular rate and rhythm, S1, S2 without murmur, rub or gallop. ABDOMEN: Soft, nontender, nondistended, normoactive bowel sounds, no guarding, no rebound EXTREMITIES: 2+ pulses, warm, well-perfused, no edema. NEUROLOGICAL: Cranial nerves II through XII grossly intact. Normal speech, gait not observed. PSYCH: Normal mood, normal affect. SKIN: Warm, dry, normal turgor, no rashes or lesions noted LABS Laboratory Results - last 24 hr 09/04/20 09/04/20 09/05/20 15:56 22:02 05:40 WBC 5.6 RBC 4.08 Hgb 12.5 Hct 36.4 MCV 89.2 MCH 30.7 MCHC 34.4 RDW 20.6 H Plt Count 235 D MPV 7.3 L Absolute Neuts (auto) 2.4 Neutrophils % 42.8 Lymphocytes % 39.5 Monocytes % 13.2 H Eosinophils % 3.1 Basophils % 1.4 Nucleated RBC % 0 Hypochromia 0 Platelet Estimate Normal Polychromasia 1+ Anisocytosis 1+ Sodium Potassium Chloride Carbon Dioxide Anion Gap BUN Creatinine Est GFR (CKD-EPI)AfAm Est GFR (CKD-EPI)NonAf POC Glucometer 172 224 Random Glucose Calcium Phosphorus Magnesium Total Bilirubin AST ALT Alkaline Phosphatase Total Protein Albumin 09/05/20 09/05/20 09/05/20 05:40 06:06 13:46 WBC RBC Hgb Hct MCV MCH MCHC RDW Plt Count MPV Absolute Neuts (auto) Neutrophils % Lymphocytes % Monocytes % Eosinophils % Basophils % Nucleated RBC % Hypochromia Platelet Estimate Polychromasia Anisocytosis Sodium 135 L Potassium 3.8 Chloride 97 L Carbon Dioxide 33 H Anion Gap 5 L BUN 13.2 Creatinine 0.7 Est GFR (CKD-EPI)AfAm 121.41 Est GFR (CKD-EPI)NonAf 104.76 POC Glucometer 141 183 Random Glucose 137 H Calcium 9.2 Phosphorus 3.7 Magnesium 1.8 Total Bilirubin 1.2 H AST 52 H ALT 67 H Alkaline Phosphatase 100 Total Protein 6.3 L Albumin 3.2 L HOSPITAL COURSE: Date of Admission:09/02/20 55 Y M with a PMH of HTN, HLD, CAD s/p PCI (2 stents placed ~2009), pancreatitis (08/11), gastritis, cirrhosis, EtOH use disorder presented with epigastric and chest pain, admitted for Epigastric pain likely 2/2 to alcohol gastritis vs stress ulcers vs r/o ACS. Epigastric/chest pain, likely 2/2 alcoholic gastritis vs reflux esophagitis (EGD in 2016 showed linear esophageal ulcers). CTAP revealed No acute pathology. Initial EKG showed NSR rate 98bpm, RBBB seen on prior ekg, new bifascicular block. Qtc prolonged 518. Echo revealed EF 60-65%. trop neg x4. No further cardiac work up was indicated. Patient was also seen and evaluate by GI, who recommended Outpatient follow-up if continued improvement. Hx of EtOH abuse: counselled on importance of discontinuing use. Patient did not have any sings of active withdrawal during the hospital course. He is clinically stable for discharge and discharged him with the following instructions, referrals and prescriptions. Date of Discharge: 09/05/20 Minutes to complete discharge: 36 Discharge Summary Problems reviewed: Yes Reason For Visit: ACUTE KIDNEY INJURY Condition: Improved - Instructions Diet, Activity, Other Instructions: YOUR VISIT You came to the hospital because you were experiencing chest pain and epigastric pain (upper abdomen pain). You were admitted to the hospital for care of these symptoms. You were evaluated with EKG and labs, which did not show any concerning abnormal findings of your heart. Your chest/upper abdominal pain was likely due to irritation/injury (ulcers) of your upper stomach/throat from previous vomiting. You are now stable and may return home. MEDICATIONS Please continue to take your home medications as prescribed. You have *NEW* medications. - Please take Carafate 1 g tablet 2 times a day for your ulcers in your throat. Please take for 4 more days - Please take Cepacol sore throat lozenge as needed for your throat pain - Please take magnesium 200 mg two times a day and Potassium chloride 10meq two times a day for low electrolytes. A 7 day supply. IT is important that you stop drinking alcohol (drinking can further decrease electrolytes) and you NEED to follow up with your primary care doctor to repeat blood work to evaluate your electrolyte levels. ADDITIONAL CARE Please make an appointment to see your primary care provider, Dr. Babak Lopez, within 1 week from today to discuss the hospital course and repeat labs. Please make an appointment to see your electrical & instrumentation supervisor, Dr. Edmond, within 1 week for further evaluation of your upper stomach/throat pain. You may need further imaging. Please make an appointment to see your warehouse shipping receiving clerk, Dr. Espitia, within 1 week. A referral has been provided. Please stop drinking alcohol. Drinking alcohol can worsen your throat/upper stomach ulcers. ADDITIONAL INFORMATION Please call 911 or come directly to the emergency department if you experience recurrence of the symptoms that brought you to the hospital, unusual headache, vision change, shortness of breath, chest pain, numbness, tingling, loss of alertness/awareness, loss of function, unusual bleeding or any alarming symptoms. Referrals: Samia Ortiz MD [Staff Physician] - John Hilliard MD [Primary Care Provider] - 1 Week (hospital ocurse, repeat labs) Disposition: HOME - Home Medications Comprehensive Discharge Medication List: Ambulatory Orders Folic Acid - 1 mg PO DAILY #0 tablet 12/19/12 Tamsulosin HCl 0.4 mg PO DAILY 11/24/15 Carvedilol [Coreg -] 25 mg PO BID #60 tablet 10/25/16 Lancets/Blood Glucose Strips [Fora [id number] Strp-Lnct] 1 each AC #90 combo..pkg 05/07/17 Atorvastatin Ca [Lipitor] 20 mg PO HS 07/24/18 Aspirin Coated [Ecotrin -] 81 mg PO DAILY #30 tablet.ec 02/19/19 Finasteride 5 mg PO DAILY 09/01/20 Fluticasone Propionate [24 Hour Allergy] 9.9 ml NS DAILY 09/01/20 Insulin Glargine,Hum.rec.anlog [Basaglar Kwikpen U-100] 30 unit SQ BID 09/01/20 Metformin HCl [Glucophage] 500 mg PO BID 09/01/20 Multivitamin [Tab-A-Alicia] 1 each PO DAILY 09/01/20 Pantoprazole Sodium [Protonix] 40 mg PO DAILY 09/01/20 Thiamine HCl [B-1] 100 mg PO DAILY 09/01/20 Insulin Lispro [Admelog] 10 units PO AC 09/03/20 Benzocaine/Menthol [Cepacol Sore Throat Lozenge] 1 each MM DAILY #14 lozenge 09/05/20 Magnesium 200 mg PO BID #14 tablet 09/05/20 Potassium Chloride 10 meq PO BID #14 capsule.er 09/05/20 Sucralfate [Carafate -] 1 gm PO BID #8 tablet 09/05/20 This patient is new to me today: No Emergency Visit: Yes ED Registration Date: 09/02/20 Care time: The patient presented to the Emergency Department on the above date and was hospitalized for further evaluation of their emergent condition. Critical Care patient: No - Discharge Referral Referred to [facility] Med P.C.: No ATTENDING PHYSICIAN STATEMENT I saw and evaluated the patient. I reviewed the resident's note and discussed the case with the resident. I agree with the resident's findings and plan as documented. SUBJECTIVE: OBJECTIVE: ASSESSMENT AND PLAN:
--- NOTE | 2020-09-05 15:00 | PN ---
Teaching Attending Note Name of Resident: Yusra Askew ATTENDING PHYSICIAN STATEMENT I saw and evaluated the patient. I reviewed the resident's note and discussed the case with the resident. I agree with the resident's findings and plan as documented. SUBJECTIVE: Patient ready for discharge OBJECTIVE: Vital Signs Period Temp Pulse Resp BP Sys/Mccoy Pulse Ox Last 24 Hr 98.2 F-98.6 F 72-82 15-20 146-181/78-103 97-100 Per Resident note ASSESSMENT AND PLAN: 55 y/o M with Hx of HTN, HLD, CAD s/p PCI, Pancreatitis, Gastritis, ETOH disorder who presents with epigastric pain Epigastric pain: Now resolved Likely in setting of gastritis Continue Carafate Patient will need outpatient follow up with Gi for EGD Continue PPi ETOH abuse No signs of withdrawal Continue to monitor Chest Pain: ACS ruled out Pain now resolved Cont ASA, Coreg, Statin Electrolyte disorder Likely due to N/V Continue aggressive repletion BPH Tamsulosin, Finasteride PPx: HSQ Will discharge today Patient to be discharged with 20meq/day of potassium. Advised to have repeat labs in 1 week
[2020-09-05] MEDS ORDERED: INSULIN (NOVOLOG MIX 70/30) 100 UNITS/ML MDV SQ ONE (16:34)
[2020-09-05 17:06] VITALS: BP 148/89; PULSE 74
== END 2020-09-05 18:09 | disposition home or self-care (01) | DRG 241 ==
LOC: JER 12:02 → JERBED 09-02 01:21 → JICU 09-02 02:43
PROVIDERS: ADMIT Internal Medicine; ATTEND Internal Medicine
DX: K29.20 Alcoholic gastritis without bleeding (principal); N17.9 Acute kidney failure, unspecified; E83.42 Hypomagnesemia; I25.10 Atherosclerotic heart disease of native coronary artery without angina pectoris; I10 Essential (primary) hypertension; E11.9 Type 2 diabetes mellitus without complications; K70.30 Alcoholic cirrhosis of liver without ascites; F10.20 Alcohol dependence, uncomplicated; Z79.4 Long term (current) use of insulin; Z98.61 Coronary angioplasty status; D72.829 Elevated white blood cell count, unspecified; E78.5 Hyperlipidemia, unspecified; R94.31 Abnormal electrocardiogram [ECG] [EKG]; E66.9 Obesity, unspecified; Z68.30 Body mass index [BMI] 30.0-30.9, adult; N40.0 Benign prostatic hyperplasia without lower urinary tract symptoms; I45.10 Unspecified right bundle-branch block; R07.89 Other chest pain; F10.230 Alcohol dependence with withdrawal, uncomplicated; I45.2 Bifascicular block
CPT/HCPCS: 36415; 71045-TC-FY; 74176-TC; 76700-TC; 80051; 80053; 80061; 80307; 81003; 82248; 82550; 82553; 82962; 83036; 83690; 83721; 83735; 84100; 84484; 84540; 85025; 93005; 93010; 99285-25; C9803; J0131; J1644; U0003

== ENCOUNTER 2021-05-21 16:45 | Emergency (ER) | payer OTHER ==
[2021-05-21 16:55] VITALS: BP 141/72; PULSE 79; TEMP 98.5; BMI 39.0
[2021-05-21] MEDS ORDERED: ACETAMINOPHEN 500 MG TABLET (FP) PO ONE (17:53)
[2021-05-21] MEDS ORDERED: ACETAMINOPHEN 500 MG TABLET (FP) ONE (17:54)
== END 2021-05-21 19:20 | disposition home or self-care (01) ==
LOC: JERFT 16:45
DX: M72.2 Plantar fascial fibromatosis (principal)
CPT/HCPCS: 73630-TC-LT; 73630-TC-RT-FY; 99284-25

== ENCOUNTER 2023-04-03 14:12 | Inpatient (IN) | payer OTHER ==
[2023-04-03] MEDS ORDERED: FAMOTIDINE 20 MG/50 ML IVPB 20 MG/50 ML MG IVPB ONE ×2 (15:16→15:33)
[2023-04-03] MEDS ORDERED: ONDANSETRON 4 MG/2 ML VIAL IVPUSH ONE (15:16)
[2023-04-03] MEDS ORDERED: SODIUM CHLORIDE 0.9% 500 ML INFUS.BAG IV ONE (15:17)
[2023-04-03] MEDS ORDERED: ACETAMINOPHEN 1000 MG/100 ML BAG IVPB ONE (15:17)
[2023-04-03] MEDS ORDERED: FOLIC ACID INJECTION - 1 MG, THIAMINE HCL 100 MG, MULTIVIT INJECTION ADULT 10 ML in SOD... IVPB ONE (15:19)
[2023-04-03] MEDS ORDERED: PANTOPRAZOLE SODIUM 40 MG VIAL IVPUSH ONE (15:23)
[2023-04-03] MEDS ORDERED: LORazepam 2 MG/ML SDV VIAL IVPUSH ONE (15:29)
[2023-04-03] MEDS ORDERED: ONDANSETRON 4 MG/2 ML VIAL ONE (15:33)
[2023-04-03] MEDS ORDERED: ACETAMINOPHEN INJECTION 100 ML IVPB ONE (15:33)
[2023-04-03 15:52] LABS: BASO % 0.2 % (0-2.0); HEMATOCRIT 43.3 % (35.4-49); HEMOGLOBIN 14.7 GM/dL (11.7-16.9); MCH 28.5 pg (25.7-33.7); MCHC 33.9 g/dl (32.0-35.9); MEAN CELL VOLUME 84.1 fl (80-96); MEAN PLT VOLUME 7.2 fl (7.5-11.1); NEUT % 76.8 % (42.8-82.8); PLATELET COUNT 148 10^3/uL (134-434); RBC 5.15 M/mm3 (4.00-5.60); RDW 17.7 % (11.9-15.9); WHITE BLOOD COUNT 9.4 K/mm3 (4.0-10.0)
[2023-04-03 16:00] LABS: INR 1.13 (0.83-1.09); PROTHROMBIN TIME (PATIENT) 13.1 SEC (9.7-13.0)
[2023-04-03 16:03] LABS: ACTIVATED PTT 30.4 SECONDS (25.2-36.5)
[2023-04-03] MEDS ORDERED: PANTOPRAZOLE SODIUM 40 MG/100 ML BAG IVPB ONE (16:03)
[2023-04-03 16:14] LABS: POTASSIUM 3.2 mmol/L (3.5-5.1)
[2023-04-03 16:17] LABS: CALCIUM 9.7 mg/dL (8.5-10.1)
[2023-04-03 16:18] LABS: BLOOD UREA NITROGEN 17.1 mg/dL (7-18); MAGNESIUM 1.6 mg/dL (1.8-2.4)
[2023-04-03 16:21] LABS: CREATININE 1.1 mg/dL (0.55-1.3)
[2023-04-03] MEDS ORDERED: MAGNESIUM SULF 50% (8.12 MEQ/2 ML-1 GM VIAL) IVPB ONE (16:21)
[2023-04-03 16:22] LABS: BILIRUBIN,TOTAL 1.5 mg/dL (0.2-1); TOT PROT 7.8 g/dl (6.4-8.2)
[2023-04-03] MEDS ORDERED: MAGNESIUM SULFATE IN WATER 2 GM/50 ML IVPB IVPB ONE (18:10)
[2023-04-03] MEDS ORDERED: KCL 10 MEQ IVPB 30 MEQ/300 ML INFUS.BAG IVPB ONE (18:10)
[2023-04-03] MEDS: KCL 10 MEQ IVPB 10 MEQ/100 ML INFUS.BAG IVPB SCH ×2 (18:14→18:53)
[2023-04-03] MEDS ORDERED: TRIMETHOBENZAMIDE HCL 200MG/2ML INJ IM PRN (22:17)
[2023-04-03] MEDS ORDERED: ACETAMINOPHEN 1000 MG/100 ML BAG IVPB PRN (22:18)
[2023-04-03] MEDS: INSULIN SLIDING SCALE (NOVOLOG) 1 VIAL SQ SCH (23:30)
[2023-04-04] MEDS: LORazepam 1 MG TABLET PO PRN ×2 (01:29→10:34)
[2023-04-04] MEDS: SODIUM CHLORIDE 1,000 ML IV SCH ×2 (02:51→10:31)
[2023-04-04] MEDS: KCL 10 MEQ IVPB 10 MEQ/100 ML INFUS.BAG IVPB SCH (02:58)
[2023-04-04 03:57] VITALS: BMI 34.8
[2023-04-04 05:08] LABS: EPI CELLS 1 /uL (0-25.1); HYALINE CASTS 0 /uL (0-3.1); PH,URINE 5.5 (5.0-8.0); URINE APPEARANCE CLEAR; URINE BACTERIA 0 /uL (0-1359); URINE BILIRUBIN NEGATIVE (NEGATIVE); URINE COLOR YELLOW; URINE GLUCOSE (UA) 3+ (NEGATIVE); URINE KETONE 2+ (NEGATIVE); URINE LEUK ESTERASE NEGATIVE (NEGATIVE); URINE NITRITE NEGATIVE (NEGATIVE); URINE PROTEIN 1+ (NEGATIVE); URINE RBC 12 /uL (0-23.9); URINE WBC 2 /uL (0-25.8)
[2023-04-04] MEDS: INSULIN SLIDING SCALE (NOVOLOG) 1 VIAL SQ SCH ×3 (08:09→17:34)
[2023-04-04 08:54] LABS: HEMATOCRIT 39.8 % (35.4-49); HEMOGLOBIN 13.9 GM/dL (11.7-16.9); MCH 29.3 pg (25.7-33.7); MCHC 34.8 g/dl (32.0-35.9); MEAN CELL VOLUME 84.1 fl (80-96); MEAN PLT VOLUME 7.5 fl (7.5-11.1); PLATELET COUNT 137 10^3/uL (134-434); RBC 4.74 M/mm3 (4.00-5.60); RDW 17.4 % (11.9-15.9)
[2023-04-04 09:05] LABS: POTASSIUM 3.5 mmol/L (3.5-5.1)
[2023-04-04 09:08] LABS: CALCIUM 9.2 mg/dL (8.5-10.1)
[2023-04-04 09:09] LABS: ALBUMIN 3.4 g/dl (3.4-5.0); BLOOD UREA NITROGEN 15.5 mg/dL (7-18); MAGNESIUM 1.8 mg/dL (1.8-2.4)
[2023-04-04 09:12] LABS: CREATININE 0.7 mg/dL (0.55-1.3)
[2023-04-04 09:13] LABS: BILIRUBIN,TOTAL 1.4 mg/dL (0.2-1); TOT PROT 7.1 g/dl (6.4-8.2)
[2023-04-04] MEDS ORDERED: LORazepam 2 MG TABLET PO SCH (11:00)
[2023-04-04] MEDS: LORazepam 1 MG TABLET PO SCH ×3 (13:38→23:16)
[2023-04-04] MEDS: ENOXAPARIN NA (PORCINE) 40 MG/0.4 ML DISP.SYRIN SQ SCH (18:43)
[2023-04-04] MEDS: CARVEDILOL 25 MG TABLET (FP) PO SCH (21:30)
[2023-04-05] MEDS: LORazepam 1 MG TABLET PO PRN ×2 (01:10→08:52)
[2023-04-05] MEDS: SODIUM CHLORIDE 1,000 ML IV SCH (02:24)
[2023-04-05] MEDS: LORazepam 1 MG TABLET PO SCH ×3 (05:28→17:31)
[2023-04-05] MEDS ORDERED: INSULIN (NOVOLOG) ASPART 100 UNITS/ML 10ML VIAL ONE (05:57)
[2023-04-05] MEDS: INSULIN SLIDING SCALE (NOVOLOG) 1 VIAL SQ SCH ×3 (06:23→17:28)
[2023-04-05] MEDS ORDERED: LORazepam 2 MG/ML SDV VIAL IM ONE ×2 (09:30→16:50)
[2023-04-05] MEDS ORDERED: PANTOPRAZOLE 40 MG TABLET PO SCH (10:00)
[2023-04-05] MEDS: THIAMINE HCL 100 MG TABLET (FP) PO SCH (10:06)
[2023-04-05] MEDS: FOLIC ACID 1 MG TABLET (FP) PO SCH (10:06)
[2023-04-05] MEDS: ASPIRIN COATED 81 MG TABLET.EC PO SCH (10:06)
[2023-04-05] MEDS: CARVEDILOL 25 MG TABLET (FP) PO SCH ×2 (10:07→21:33)
[2023-04-05] MEDS: TAMSULOSIN HCL 0.4 MG CAP PO SCH (10:07)
[2023-04-05] MEDS: PANTOPRAZOLE 40 MG TABLET PO SCH (10:07)
[2023-04-05] MEDS: ENOXAPARIN NA (PORCINE) 40 MG/0.4 ML DISP.SYRIN SQ SCH (10:07)
[2023-04-05] MEDS: FINASTERIDE 5 MG TABLET (FP) PO SCH (10:07)
[2023-04-05 10:49] LABS: BASO % 0.9 % (0-2.0); EOS % 1.1 % (0-4.5); HEMATOCRIT 43.9 % (35.4-49); HEMOGLOBIN 15.2 GM/dL (11.7-16.9); LYMPH % 23.3 % (8-40); MCH 29.1 pg (25.7-33.7); MCHC 34.6 g/dl (32.0-35.9); MEAN CELL VOLUME 84.3 fl (80-96); MEAN PLT VOLUME 6.8 fl (7.5-11.1); MONO % 8.5 % (3.8-10.2); NEUT % 66.2 % (42.8-82.8); PLATELET COUNT 173 10^3/uL (134-434); RDW 17.1 % (11.9-15.9); WHITE BLOOD COUNT 7.3 K/mm3 (4.0-10.0)
[2023-04-05 10:50] LABS: INR 1.17 (0.83-1.09); PROTHROMBIN TIME (PATIENT) 13.5 SEC (9.7-13.0)
[2023-04-05 11:05] LABS: POTASSIUM 3.7 mmol/L (3.5-5.1)
[2023-04-05 11:11] LABS: BLOOD UREA NITROGEN 18.2 mg/dL (7-18); CALCIUM 9.3 mg/dL (8.5-10.1)
[2023-04-05 11:12] LABS: ALBUMIN 3.7 g/dl (3.4-5.0); MAGNESIUM 1.5 mg/dL (1.8-2.4)
[2023-04-05 11:14] LABS: CREATININE 0.7 mg/dL (0.55-1.3)
[2023-04-05 11:16] LABS: TOT PROT 7.6 g/dl (6.4-8.2)
[2023-04-05] MEDS ORDERED: HALOPERIDOL LACTATE 5 MG/ML IM ONE (14:00)
[2023-04-06] MEDS: LORazepam 1 MG TABLET PO SCH ×4 (05:24→22:15)
[2023-04-06] MEDS: INSULIN SLIDING SCALE (NOVOLOG) 1 VIAL SQ SCH ×3 (06:10→17:06)
[2023-04-06 06:25] VITALS: RESP 18
[2023-04-06] MEDS: SODIUM CHLORIDE 1,000 ML IV SCH (07:41)
[2023-04-06 08:56] LABS: EOS % 2.2 % (0-4.5); HEMATOCRIT 40.2 % (35.4-49); MCH 29.1 pg (25.7-33.7); MCHC 34.8 g/dl (32.0-35.9); MEAN CELL VOLUME 83.4 fl (80-96); MEAN PLT VOLUME 6.6 fl (7.5-11.1); MONO % 9.6 % (3.8-10.2); NEUT % 61.2 % (42.8-82.8); PLATELET COUNT 181 10^3/uL (134-434); RBC 4.82 M/mm3 (4.00-5.60); RDW 17.2 % (11.9-15.9)
[2023-04-06 08:58] LABS: INR 1.15 (0.83-1.09); PROTHROMBIN TIME (PATIENT) 13.3 SEC (9.7-13.0)
[2023-04-06 09:11] LABS: POTASSIUM 3.4 mmol/L (3.5-5.1)
[2023-04-06 09:15] LABS: CALCIUM 8.6 mg/dL (8.5-10.1)
[2023-04-06 09:16] LABS: ALBUMIN 3.2 g/dl (3.4-5.0); BLOOD UREA NITROGEN 13.5 mg/dL (7-18); MAGNESIUM 1.7 mg/dL (1.8-2.4)
[2023-04-06 09:19] LABS: CREATININE 0.5 mg/dL (0.55-1.3)
[2023-04-06 09:20] LABS: BILIRUBIN,TOTAL 0.8 mg/dL (0.2-1); TOT PROT 6.6 g/dl (6.4-8.2)
[2023-04-06] MEDS: CARVEDILOL 25 MG TABLET (FP) PO SCH ×2 (10:11→22:17)
[2023-04-06] MEDS: THIAMINE HCL 100 MG TABLET (FP) PO SCH (10:11)
[2023-04-06] MEDS: FOLIC ACID 1 MG TABLET (FP) PO SCH (10:11)
[2023-04-06] MEDS: TAMSULOSIN HCL 0.4 MG CAP PO SCH (10:11)
[2023-04-06] MEDS: ASPIRIN COATED 81 MG TABLET.EC PO SCH (10:12)
[2023-04-06] MEDS: PANTOPRAZOLE 40 MG TABLET PO SCH (10:12)
[2023-04-06] MEDS: ENOXAPARIN NA (PORCINE) 40 MG/0.4 ML DISP.SYRIN SQ SCH (10:12)
[2023-04-06] MEDS: FINASTERIDE 5 MG TABLET (FP) PO SCH (10:12)
[2023-04-06] MEDS ORDERED: LORazepam 1 MG TABLET PO PRN (10:34)
[2023-04-06] MEDS: MAGNESIUM OXIDE 400 MG TABLET (FP) PO SCH ×2 (11:13→22:17)
[2023-04-06] MEDS ORDERED: INSULIN (NOVOLOG) ASPART 100 UNITS/ML 10ML VIAL ONE ×2 (11:27→17:04)
[2023-04-07] MEDS ORDERED: LORazepam 0.5 MG TABLET PO PRN
[2023-04-07] MEDS: guaiFENesin/D-M SUGAR-FREE/ACLHOL-FREE (200 MG/10 MG) 5 ML PO PRN ×3 (00:18→22:11)
[2023-04-07] MEDS: LORazepam 0.5 MG TABLET PO SCH ×5 (05:55→22:03)
[2023-04-07] MEDS: INSULIN SLIDING SCALE (NOVOLOG) 1 VIAL SQ SCH ×3 (06:34→16:28)
[2023-04-07 07:28] LABS: BASO % 1.5 % (0-2.0); HEMATOCRIT 41.6 % (35.4-49); HEMOGLOBIN 14.8 GM/dL (11.7-16.9); LYMPH % 31.5 % (8-40); MCH 29.6 pg (25.7-33.7); MCHC 35.5 g/dl (32.0-35.9); MEAN CELL VOLUME 83.3 fl (80-96); MEAN PLT VOLUME 6.8 fl (7.5-11.1); MONO % 10.5 % (3.8-10.2); NEUT % 53.5 % (42.8-82.8); PLATELET COUNT 196 10^3/uL (134-434); RBC 4.99 M/mm3 (4.00-5.60); RDW 17.4 % (11.9-15.9); WHITE BLOOD COUNT 5.4 K/mm3 (4.0-10.0)
[2023-04-07 07:32] LABS: INR 1.17 (0.83-1.09); PROTHROMBIN TIME (PATIENT) 13.6 SEC (9.7-13.0)
[2023-04-07 07:45] LABS: POTASSIUM 3.9 mmol/L (3.5-5.1)
[2023-04-07 07:50] LABS: ALBUMIN 3.5 g/dl (3.4-5.0); BLOOD UREA NITROGEN 19.2 mg/dL (7-18); MAGNESIUM 1.7 mg/dL (1.8-2.4)
[2023-04-07 07:53] LABS: CREATININE 0.7 mg/dL (0.55-1.3)
[2023-04-07 07:54] LABS: BILIRUBIN,TOTAL 0.9 mg/dL (0.2-1)
[2023-04-07 07:55] LABS: TOT PROT 7.4 g/dl (6.4-8.2)
[2023-04-07] MEDS: ASPIRIN COATED 81 MG TABLET.EC PO SCH (09:16)
[2023-04-07] MEDS: PANTOPRAZOLE 40 MG TABLET PO SCH (09:16)
[2023-04-07] MEDS: FOLIC ACID 1 MG TABLET (FP) PO SCH (09:16)
[2023-04-07] MEDS: THIAMINE HCL 100 MG TABLET (FP) PO SCH (09:16)
[2023-04-07] MEDS: FINASTERIDE 5 MG TABLET (FP) PO SCH (09:16)
[2023-04-07] MEDS: CARVEDILOL 25 MG TABLET (FP) PO SCH ×2 (09:16→22:03)
[2023-04-07] MEDS: TAMSULOSIN HCL 0.4 MG CAP PO SCH (09:16)
[2023-04-07] MEDS: MAGNESIUM OXIDE 400 MG TABLET (FP) PO SCH (09:17)
[2023-04-07] MEDS: ENOXAPARIN NA (PORCINE) 40 MG/0.4 ML DISP.SYRIN SQ SCH (09:17)
[2023-04-07] MEDS ORDERED: MAGNESIUM OXIDE 400 MG TABLET (FP) PO ONE (11:00)
[2023-04-08] MEDS ORDERED: LORazepam 0.5 MG TABLET PO ONE (05:00)
[2023-04-08] MEDS: INSULIN SLIDING SCALE (NOVOLOG) 1 VIAL SQ SCH ×2 (06:22→11:25)
[2023-04-08 08:22] VITALS: BP 167/104; PULSE 70; TEMP 98.3
[2023-04-08] MEDS: FINASTERIDE 5 MG TABLET (FP) PO SCH (09:25)
[2023-04-08] MEDS: ASPIRIN COATED 81 MG TABLET.EC PO SCH (09:25)
[2023-04-08] MEDS: THIAMINE HCL 100 MG TABLET (FP) PO SCH (09:25)
[2023-04-08] MEDS: FOLIC ACID 1 MG TABLET (FP) PO SCH (09:25)
[2023-04-08] MEDS: CARVEDILOL 25 MG TABLET (FP) PO SCH (09:25)
[2023-04-08] MEDS: ENOXAPARIN NA (PORCINE) 40 MG/0.4 ML DISP.SYRIN SQ SCH (09:25)
[2023-04-08] MEDS: TAMSULOSIN HCL 0.4 MG CAP PO SCH (09:25)
[2023-04-08] MEDS: PANTOPRAZOLE 40 MG TABLET PO SCH (09:25)
[2023-04-08] MEDS ORDERED: INSULIN (NOVOLOG) ASPART 100 UNITS/ML 10ML VIAL ONE (11:17)
== END 2023-04-08 15:03 | disposition home or self-care (01) | DRG 241 ==
LOC: JER 14:12 → JERBED 16:32 → J8W 22:15 → OBSVTOIN 04-06 09:32
PROVIDERS: ADMIT Internal Medicine; ATTEND Nurse Practitioner Acute Care
PROC: HZ2ZZZZ Detoxification Services for Substance Abuse Treatment (ICD-10-PCS; principal; 2023-04-03)
DX: K29.20 Alcoholic gastritis without bleeding (principal); F10.239 Alcohol dependence with withdrawal, unspecified; I25.10 Atherosclerotic heart disease of native coronary artery without angina pectoris; E11.9 Type 2 diabetes mellitus without complications; E78.5 Hyperlipidemia, unspecified; I10 Essential (primary) hypertension; I45.10 Unspecified right bundle-branch block; R44.3 Hallucinations, unspecified; E87.6 Hypokalemia; E83.42 Hypomagnesemia; E66.9 Obesity, unspecified; Z68.34 Body mass index [BMI] 34.0-34.9, adult; Z95.5 Presence of coronary angioplasty implant and graft
CPT/HCPCS: 0241U-QW; 36415; 71045-TC-FY; 74177-TC; 80053; 81003; 82140; 82272; 82962; 83036; 83690; 83735; 84100; 84484; 85025; 85027; 85610; 85730; 87086; 93005; 93010; 97116-GP; 97161-GP; 99285-25; G0378; Q9967

== ENCOUNTER 2024-10-06 12:27 | Inpatient (IN) | payer OTHER ==
[2024-10-06 12:59] VITALS: RESP 18
[2024-10-06] MEDS ORDERED: TRIMETHOBENZAMIDE HCL 200MG/2ML INJ IM ONE (13:16)
[2024-10-06] MEDS: TRIMETHOBENZAMIDE HCL 200MG/2ML INJ IM ONE (13:21)
[2024-10-06] MEDS ORDERED: MAG HYDROX/AL HYDROX/SIMETH 30 ML UNIT-DOSE CUP ONE (13:26)
[2024-10-06] MEDS ORDERED: FAMOTIDINE 20 MG/50 ML IVPB 20 MG/50 ML MG IVPB ONE (13:26)
[2024-10-06] MEDS: FAMOTIDINE 20 MG/50 ML IVPB 20 MG/50 ML MG IVPB ONE ×2 (13:30→21:35)
[2024-10-06] MEDS: MAG HYDROX/AL HYDROX/SIMETH -MYLANTA- ORAL SUSPENSION PO ONE (13:30)
[2024-10-06 13:33] LABS: INR 1.03 (0.83-1.09); PROTHROMBIN TIME (PATIENT) 11.8 SEC (9.7-13.0)
[2024-10-06 13:36] LABS: ACTIVATED PTT 20.7 SECONDS (25.2-36.5)
[2024-10-06 13:39] LABS: BASO % 1.3 % (0-2.0); EOS % 0.3 % (0-4.5); HEMATOCRIT 48.4 % (35.4-49); HEMOGLOBIN 16.2 GM/dL (11.7-16.9); LYMPH % 23.5 % (8-40); MCHC 33.4 g/dl (32.0-35.9); MEAN CELL VOLUME 89.7 fl (80-96); MONO % 5.6 % (3.8-10.2); NEUT % 69.3 % (42.8-82.8); PLATELET COUNT 226 10^3/uL (134-434); RBC 5.39 M/mm3 (4.00-5.60); WHITE BLOOD COUNT 5.3 K/mm3 (4.0-10.0)
[2024-10-06 13:52] LABS: POTASSIUM 3.9 mmol/L (3.5-5.1)
[2024-10-06 13:54] LABS: CALCIUM 8.4 mg/dL (8.5-10.1)
[2024-10-06 13:55] LABS: ALBUMIN 3.7 g/dl (3.4-5.0)
[2024-10-06 13:58] LABS: CREATININE 0.7 mg/dL (0.55-1.3)
[2024-10-06 13:59] LABS: BILIRUBIN,TOTAL 0.7 mg/dL (0.2-1)
[2024-10-06 14:00] LABS: TOT PROT 7.4 g/dl (6.4-8.2)
[2024-10-06] MEDS ORDERED: chlordiazePOXIDE HCL 25 MG CAPSULE ONE (14:18)
[2024-10-06] MEDS: chlordiazePOXIDE HCL 25 MG CAPSULE PO ONE (14:21)
[2024-10-06] MEDS ORDERED: FINASTERIDE 5 MG TABLET (FP) PO SCH (16:30)
[2024-10-06 17:10] VITALS: BMI 34.7
[2024-10-06] MEDS: LOSARTAN POTASSIUM 25 MG TABLET PO ONE (17:30)
[2024-10-06] MEDS: amLODIPine BESYLATE 5 MG TABLET (FP) PO ONE (17:31)
[2024-10-06] MEDS: chlordiazePOXIDE HCL 25 MG CAPSULE PO SCH (17:32)
[2024-10-06] MEDS: LACTATED RINGERS SOLUTION 1,000 ML IV SCH (17:54)
[2024-10-06] MEDS ORDERED: PATIENT'S OWN MEDICATION (NON-FORMULARY) (Insulin Glargine,Hum.Rec.Anlog [Basaglar Kwikpen SQ SCH (22:00)
[2024-10-06] MEDS: ONDANSETRON 4 MG/2 ML VIAL IVPB PRN (23:48)
[2024-10-07] MEDS: CARVEDILOL 25 MG TABLET (FP) PO SCH
[2024-10-07] MEDS: ATORVASTATIN CA 40 MG TABLET (FP) PO SCH
[2024-10-07] MEDS: HEPARIN NA (PORCINE) 5,000 UNITS/ML 1ML VIAL SQ SCH (00:01)
[2024-10-07] MEDS: INSULIN (LEVEMIR) 100 UNITS/ML UNITS SQ SCH (00:01)
[2024-10-07] MEDS: chlordiazePOXIDE HCL 25 MG CAPSULE PO PRN (02:31)
[2024-10-07] MEDS ORDERED: LACTATED RINGERS SOLUTION 1,000 ML IV SCH (08:57)
[2024-10-07] MEDS: INSULIN (NOVOLOG) ASPART 100 UNITS/ML 10ML VIAL SQ SCH (09:21)
[2024-10-07] MEDS: TAMSULOSIN HCL 0.4 MG CAP PO SCH (09:22)
[2024-10-07] MEDS ORDERED: amLODIPine BESYLATE 5 MG TABLET (FP) PO SCH (10:00)
[2024-10-07] MEDS ORDERED: PATIENT'S OWN MEDICATION (NON-FORMULARY) (Irbesartan [Irbesartan] 150 MG Tablet) PO SCH (10:00)
[2024-10-07] MEDS ORDERED: PATIENT'S OWN MEDICATION (NON-FORMULARY) (Thiamine Hcl [B-1] 100 MG Tablet) PO SCH (10:00)
[2024-10-07 11:54] LABS: POTASSIUM 4.1 mmol/L (3.5-5.1)
[2024-10-07 11:56] LABS: CALCIUM 9.1 mg/dL (8.5-10.1)
[2024-10-07 11:57] LABS: ALBUMIN 3.5 g/dl (3.4-5.0); MAGNESIUM 1.7 mg/dL (1.8-2.4)
[2024-10-07] MEDS: LOSARTAN POTASSIUM 50 MG TABLET PO SCH (11:59)
[2024-10-07 12:00] LABS: CREATININE 0.8 mg/dL (0.55-1.3)
[2024-10-07] MEDS: amLODIPine BESYLATE 10 MG TABLET (FP) PO SCH (12:00)
[2024-10-07] MEDS: PANTOPRAZOLE 40 MG TABLET PO SCH (12:00)
[2024-10-07] MEDS: FOLIC ACID 1 MG TABLET (FP) PO SCH (12:00)
[2024-10-07] MEDS: SPIRONOLACTONE 25 MG TABLET PO SCH (12:00)
[2024-10-07] MEDS: THIAMINE 100 MG TABLET PO SCH (12:00)
[2024-10-07 12:01] LABS: PHOSPHOROUS 2.1 mg/dL (2.5-4.9)
[2024-10-07] MEDS: FLUTICASONE PROP 0.05% 16 GM NASAL SPRAY NS SCH (12:01)
[2024-10-07] MEDS: ASPIRIN COATED 81 MG TABLET.EC PO SCH (12:01)
[2024-10-07 12:02] LABS: BILIRUBIN,TOTAL 1.4 mg/dL (0.2-1); TOT PROT 6.9 g/dl (6.4-8.2)
[2024-10-07] MEDS: MAGNESIUM SULFATE IN WATER 2 GM/50 ML IVPB IVPB ONE (13:35)
[2024-10-07] MEDS ORDERED: LORazepam 2 MG/ML SDV VIAL IVPUSH PRN (14:10)
[2024-10-07] MEDS: FINASTERIDE 5 MG TABLET (FP) PO SCH (14:57)
[2024-10-07] MEDS: LORazepam 1 MG TABLET PO PRN (21:48)
[2024-10-08] MEDS: chlordiazePOXIDE HCL 25 MG CAPSULE PO SCH (04:59)
[2024-10-08] MEDS: EMPAGLIFLOZIN (JARDIANCE) 10 MG TABLET PO SCH (09:30)
[2024-10-08 10:52] LABS: MCH 30.4 pg (25.7-33.7); MCHC 34.1 g/dl (32.0-35.9); MEAN CELL VOLUME 89.2 fl (80-96); MEAN PLT VOLUME 6.8 fl (7.5-11.1); PLATELET COUNT 166 10^3/uL (134-434); RBC 5.26 M/mm3 (4.00-5.60); RDW 15.7 % (11.9-15.9); WHITE BLOOD COUNT 4.6 K/mm3 (4.0-10.0)
[2024-10-08 11:11] LABS: POTASSIUM 4.1 mmol/L (3.5-5.1)
[2024-10-08 11:12] LABS: CALCIUM 9.4 mg/dL (8.5-10.1)
[2024-10-08 11:13] LABS: BLOOD UREA NITROGEN 14.6 mg/dL (7-18); MAGNESIUM 1.8 mg/dL (1.8-2.4)
[2024-10-08 11:16] LABS: CREATININE 0.9 mg/dL (0.55-1.3)
[2024-10-08] MEDS: SIMETHICONE 80 MG TAB.CHEW (FP) PO PRN (13:52)
[2024-10-08] MEDS: INSULIN ASPART SLIDING SCALE (NOVOLOG) 1 VIAL SQ SCH (17:19)
[2024-10-08] MEDS: ACETAMINOPHEN 325 MG TABLET (FP) PO PRN (17:29)
[2024-10-08] MEDS: POLYETHYLENE GLYCOL (HEALTHYLAX) 3350 17 GM PACKET PO PRN (21:33)
[2024-10-09] MEDS ORDERED: chlordiazePOXIDE HCL 10 MG CAPSULE PO PRN
[2024-10-09] MEDS: chlordiazePOXIDE HCL 10 MG CAPSULE PO SCH (05:36)
[2024-10-09] MEDS ORDERED: LORazepam 2 MG/ML SDV VIAL IVPUSH PRN (08:16)
[2024-10-09 09:52] LABS: HEMATOCRIT 45.1 % (35.4-49); HEMOGLOBIN 15.3 GM/dL (11.7-16.9); MCH 30.5 pg (25.7-33.7); MEAN CELL VOLUME 89.6 fl (80-96); MEAN PLT VOLUME 7.2 fl (7.5-11.1); PLATELET COUNT 162 10^3/uL (134-434); RBC 5.03 M/mm3 (4.00-5.60); RDW 15.5 % (11.9-15.9); WHITE BLOOD COUNT 4.9 K/mm3 (4.0-10.0)
[2024-10-09 09:55] LABS: POTASSIUM 3.9 mmol/L (3.5-5.1)
[2024-10-09 09:58] LABS: ALBUMIN 3.4 g/dl (3.4-5.0)
[2024-10-09 10:00] LABS: BLOOD UREA NITROGEN 16.5 mg/dL (7-18); MAGNESIUM 1.9 mg/dL (1.8-2.4)
[2024-10-09 10:01] LABS: CALCIUM 9.3 mg/dL (8.5-10.1)
[2024-10-09 10:02] LABS: BILIRUBIN,TOTAL 0.7 mg/dL (0.2-1); CREATININE 0.9 mg/dL (0.55-1.3)
[2024-10-09] MEDS: MELATONIN 5 MG TABLETS PO ONE (22:31)
[2024-10-10] MEDS ORDERED: chlordiazePOXIDE HCL 10 MG CAPSULE PO SCH (05:00)
[2024-10-10 15:46] VITALS: BP 116/65; PULSE 74; TEMP 98.8
[2024-10-11] MEDS ORDERED: chlordiazePOXIDE HCL 10 MG CAPSULE PO ONE (05:00)
== END 2024-10-10 18:41 | disposition home or self-care (01) | DRG 775 ==
LOC: JER 12:27 → JERBED 14:50 → J5S 16:29
PROVIDERS: ADMIT Internal Medicine; ATTEND Internal Medicine
PROC: HZ2ZZZZ Detoxification Services for Substance Abuse Treatment (ICD-10-PCS; principal; 2024-10-06)
DX: F10.239 Alcohol dependence with withdrawal, unspecified (principal); E11.9 Type 2 diabetes mellitus without complications; E78.5 Hyperlipidemia, unspecified; I16.0 Hypertensive urgency; I25.10 Atherosclerotic heart disease of native coronary artery without angina pectoris; K76.9 Liver disease, unspecified; R00.0 Tachycardia, unspecified; K21.9 Gastro-esophageal reflux disease without esophagitis; N40.0 Benign prostatic hyperplasia without lower urinary tract symptoms; Z95.5 Presence of coronary angioplasty implant and graft; E66.9 Obesity, unspecified; Z68.34 Body mass index [BMI] 34.0-34.9, adult
CPT/HCPCS: 36415; 71045-TC-FY; 74176-TC; 80048; 80053; 82550; 82553; 82962; 83690; 83735; 84100; 84484; 85025; 85027; 85610; 85730; 93005; 93010; 97116-GP; 97161-GP; 99285-25; J1644

== ENCOUNTER 2025-01-01 07:30 | Inpatient (IN) | payer OTHER ==
[2025-01-01] MEDS: FAMOTIDINE 20 MG/50 ML IVPB 20 MG/50 ML MG IVPB ONE (08:45)
[2025-01-01] MEDS ORDERED: diazePAM CARPU-JECT 10 MG/2 ML DISP.SYRIN ONE (08:47)
[2025-01-01] MEDS ORDERED: ONDANSETRON 4 MG/2 ML VIAL ONE (08:48)
[2025-01-01] MEDS ORDERED: FAMOTIDINE 20 MG/50 ML IVPB 20 MG/50 ML MG IVPB ONE (08:48)
[2025-01-01] MEDS ORDERED: MAGNESIUM 1GM/D5W - 1 GM/100 ML IVPB IVPB ONE ×2 (08:48→10:04)
[2025-01-01] MEDS: ONDANSETRON 4 MG/2 ML VIAL IVPUSH ONE (08:50)
[2025-01-01] MEDS: diazePAM CARPU-JECT 10 MG/2 ML DISP.SYRIN IVPUSH ONE (08:55)
[2025-01-01] MEDS: SODIUM CHLORIDE 0.9% 500 ML INFUS.BAG IV ONE (08:55)
[2025-01-01 08:57] LABS: BASO % 0.4 % (0-2.0); HEMATOCRIT 54.8 % (35.4-49); HEMOGLOBIN 18.2 GM/dL (11.7-16.9); LYMPH % 12.3 % (8-40); MCHC 33.3 g/dl (32.0-35.9); MEAN CELL VOLUME 90.2 fl (80-96); MEAN PLT VOLUME 6.8 fl (7.5-11.1); MONO % 7.9 % (3.8-10.2); NEUT % 79.4 % (42.8-82.8); PLATELET COUNT 92 10^3/uL (134-434); RBC 6.07 M/mm3 (4.00-5.60); WHITE BLOOD COUNT 4.4 K/mm3 (4.0-10.0)
[2025-01-01 09:03] LABS: INR 1.04 (0.83-1.09); PROTHROMBIN TIME (PATIENT) 11.4 SEC (9.7-13.0)
[2025-01-01] MEDS: LACTATED RINGERS SOLUTION 1000 ML INFUS.BAG IV ONE (09:04)
[2025-01-01 09:06] LABS: ACTIVATED PTT 31.6 SECONDS (25.2-36.5)
[2025-01-01 09:17] LABS: POTASSIUM 3.5 mmol/L (3.5-5.1)
[2025-01-01 09:19] LABS: ALBUMIN 4.5 g/dl (3.4-5.0)
[2025-01-01 09:23] LABS: CREATININE 0.9 mg/dL (0.55-1.3)
[2025-01-01 09:24] LABS: BILIRUBIN,TOTAL 2.1 mg/dL (0.2-1); TOT PROT 8.8 g/dl (6.4-8.2)
[2025-01-01 09:37] LABS: MAGNESIUM 1.6 mg/dL (1.8-2.4)
[2025-01-01] MEDS ORDERED: ONDANSETRON 4 MG/2 ML VIAL IVPUSH PRN (09:48)
[2025-01-01] MEDS: MAGNESIUM SULFATE IN WATER 2 GM/50 ML IVPB IVPB ONE (09:55)
[2025-01-01] MEDS ORDERED: PANTOPRAZOLE 40 MG TABLET PO ONE (10:02)
[2025-01-01] MEDS ORDERED: ASPIRIN COATED 81 MG TABLET.EC ONE (10:02)
[2025-01-01] MEDS ORDERED: chlordiazePOXIDE HCL 25 MG CAPSULE ONE (10:02)
[2025-01-01] MEDS ORDERED: MULTIVITAMINS (DAILY MVI) TABLET (FP) ONE (10:03)
[2025-01-01] MEDS ORDERED: amLODIPine BESYLATE 10 MG TABLET (FP) ONE (10:03)
[2025-01-01] MEDS ORDERED: THIAMINE 100 MG TABLET ONE (10:03)
[2025-01-01] MEDS ORDERED: FOLIC ACID 1 MG TABLET (FP) ONE (10:03)
[2025-01-01] MEDS ORDERED: CARVEDILOL 25 MG TABLET (FP) ONE (10:04)
[2025-01-01] MEDS ORDERED: HEPARIN NA (PORCINE) 5,000 UNITS/ML 1ML VIAL ONE (10:04)
[2025-01-01] MEDS ORDERED: TAMSULOSIN HCL 0.4 MG CAP ONE (10:04)
[2025-01-01] MEDS ORDERED: INSULIN (LEVEMIR) 100 UNITS/ML UNITS SQ ONE (10:17)
[2025-01-01] MEDS: HEPARIN NA (PORCINE) 5,000 UNITS/ML 1ML VIAL SQ SCH (10:20)
[2025-01-01] MEDS: INSULIN (LEVEMIR) 100 UNITS/ML UNITS SQ SCH (10:21)
[2025-01-01] MEDS: ASPIRIN COATED 81 MG TABLET.EC PO SCH (10:23)
[2025-01-01] MEDS: CARVEDILOL 25 MG TABLET (FP) PO SCH (10:23)
[2025-01-01] MEDS: chlordiazePOXIDE HCL 25 MG CAPSULE PO SCH (10:23)
[2025-01-01] MEDS: amLODIPine BESYLATE 5 MG TABLET (FP) PO SCH (10:23)
[2025-01-01] MEDS: PANTOPRAZOLE 40 MG TABLET PO SCH (10:23)
[2025-01-01] MEDS: TAMSULOSIN HCL 0.4 MG CAP PO SCH (10:23)
[2025-01-01] MEDS: MULTIVITAMINS (DAILY MVI) TABLET (FP) PO SCH (12:55)
[2025-01-01] MEDS: FINASTERIDE 5 MG TABLET (FP) PO SCH (12:55)
[2025-01-01] MEDS: FOLIC ACID 1 MG TABLET (FP) PO SCH (12:55)
[2025-01-01] MEDS: THIAMINE 100 MG TABLET PO SCH (12:56)
[2025-01-01] MEDS: LACTATED RINGERS SOLUTION 1,000 ML/1,000 ML INFUS.BAG IV SCH (13:01)
[2025-01-01] MEDS: INSULIN ASPART SLIDING SCALE (NOVOLOG) 1 VIAL SQ SCH (13:02)
[2025-01-01] MEDS: LIDOCAINE 4% PATCH TP SCH (15:18)
[2025-01-01 15:58] VITALS: BMI 33.3
[2025-01-01] MEDS ORDERED: METOCLOPRAMIDE HCL INJECTION 10 MG/2 ML VIAL IVPUSH SCH (16:45)
[2025-01-01 19:51] LABS: EPI CELLS 34 /uL (0-25.1); HYALINE CASTS 23 /uL (0-3.1); URINE APPEARANCE CLOUDY; URINE BILIRUBIN 2+ (NEGATIVE); URINE COLOR ORANGE; URINE GLUCOSE (UA) 2+ (NEGATIVE); URINE KETONE 1+ (NEGATIVE); URINE LEUK ESTERASE TRACE (NEGATIVE); URINE NITRITE POSITIVE (NEGATIVE); URINE PROTEIN 3+ (NEGATIVE); URINE RBC 39 /uL (0-23.9); URINE WBC 38 /uL (0-25.8)
[2025-01-01 20:41] LABS: URINE BACTERIA 38.9 /uL (0-1359); URINE CRYSTALS FEW AMORPHOUS SEEN /hpf
[2025-01-01] MEDS: ATORVASTATIN CA 40 MG TABLET (FP) PO SCH (21:21)
[2025-01-01] MEDS: LIDOCAINE PATCH REMOVAL MC SCH (21:23)
[2025-01-01] MEDS: MELATONIN 5 MG TABLETS PO ONE (23:38)
[2025-01-02 08:19] LABS: BASO % 0.5 % (0-2.0); EOS % 1.2 % (0-4.5); HEMATOCRIT 43.8 % (35.4-49); LYMPH % 31.9 % (8-40); MCH 30.4 pg (25.7-33.7); MCHC 34.2 g/dl (32.0-35.9); MEAN CELL VOLUME 88.9 fl (80-96); MEAN PLT VOLUME 7.1 fl (7.5-11.1); MONO % 8.9 % (3.8-10.2); NEUT % 57.5 % (42.8-82.8); PLATELET COUNT 72 10^3/uL (134-434); RBC 4.92 M/mm3 (4.00-5.60); RDW 15.8 % (11.9-15.9); WHITE BLOOD COUNT 4.4 K/mm3 (4.0-10.0)
[2025-01-02 08:33] LABS: POTASSIUM 3.1 mmol/L (3.5-5.1)
[2025-01-02 08:57] LABS: CALCIUM 9.2 mg/dL (8.5-10.1)
[2025-01-02 08:58] LABS: BLOOD UREA NITROGEN 17.5 mg/dL (7-18)
[2025-01-02 09:01] LABS: CREATININE 0.7 mg/dL (0.55-1.3)
[2025-01-02] MEDS: LIDOCAINE 4% PATCH TP SCH (10:24)
[2025-01-02] MEDS: KCL 10 MEQ IVPB 10 MEQ/100 ML INFUS.BAG IVPB SCH (11:06)
[2025-01-02 11:49] LABS: BILIRUBIN,DIRECT 0.5 mg/dL (0.0-0.2)
[2025-01-02 11:51] LABS: BILIRUBIN,TOTAL 1.5 mg/dL (0.2-1)
[2025-01-02 11:53] LABS: ALBUMIN 3.3 g/dl (3.4-5.0); TOT PROT 6.3 g/dl (6.4-8.2)
[2025-01-02] MEDS: POTASSIUM CHLORIDE ORAL LIQUID 20 MEQ/15 ML PO ONE (13:16)
[2025-01-02] MEDS: chlordiazePOXIDE HCL 25 MG CAPSULE PO SCH (13:17)
[2025-01-02] MEDS: D5-1/2NS+20 MEQ KCL - 20 MEQ/1,000 ML INFUS.BAG IV SCH (13:18)
[2025-01-03] MEDS: LORazepam 2 MG/ML SDV VIAL IVPUSH PRN (02:58)
[2025-01-03] MEDS ORDERED: LORazepam 1 MG TABLET PO PRN (07:53)
[2025-01-03] MEDS: PHENobarbital SODIUM 65 MG/1 ML VIAL IVPB ONE (08:28)
[2025-01-03] MEDS: LORazepam 2 MG/ML SDV VIAL IVPUSH ONE ×2 (08:28→12:19)
[2025-01-03 09:00] LABS: BASO % 0.8 % (0-2.0); EOS % 1.2 % (0-4.5); HEMATOCRIT 45.5 % (35.4-49); HEMOGLOBIN 15.2 GM/dL (11.7-16.9); LYMPH % 31.9 % (8-40); MCH 29.9 pg (25.7-33.7); MCHC 33.3 g/dl (32.0-35.9); MEAN CELL VOLUME 89.9 fl (80-96); MEAN PLT VOLUME 7.4 fl (7.5-11.1); MONO % 9.1 % (3.8-10.2); PLATELET COUNT 87 10^3/uL (134-434); RBC 5.06 M/mm3 (4.00-5.60); RDW 15.9 % (11.9-15.9); WHITE BLOOD COUNT 4.1 K/mm3 (4.0-10.0)
[2025-01-03 09:04] LABS: INR 1.15 (0.83-1.09); PROTHROMBIN TIME (PATIENT) 12.6 SEC (9.7-13.0)
[2025-01-03 09:18] LABS: POTASSIUM 3.1 mmol/L (3.5-5.1)
[2025-01-03 09:20] LABS: ALBUMIN 3.6 g/dl (3.4-5.0); BLOOD UREA NITROGEN 16.5 mg/dL (7-18); CALCIUM 8.9 mg/dL (8.5-10.1); MAGNESIUM 1.5 mg/dL (1.8-2.4)
[2025-01-03 09:23] LABS: CREATININE 0.7 mg/dL (0.55-1.3)
[2025-01-03 09:24] LABS: PHOSPHOROUS 2.4 mg/dL (2.5-4.9)
[2025-01-03 09:25] LABS: BILIRUBIN,TOTAL 1.3 mg/dL (0.2-1); TOT PROT 6.9 g/dl (6.4-8.2)
[2025-01-03] MEDS: D5-1/2NS+20 MEQ KCL - 20 MEQ/1,000 ML INFUS.BAG IV SCH (09:34)
[2025-01-03] MEDS: chlordiazePOXIDE HCL 25 MG CAPSULE PO SCH (09:41)
[2025-01-03] MEDS ORDERED: METOPROLOL TARTRATE 5 MG/5 ML VIAL IVPUSH PRN ×2 (11:56→15:28)
[2025-01-03] MEDS: MAGNESIUM 2GM/50ML STERILE WATER IVPB IVPB ONE ×2 (12:07→12:55)
[2025-01-03] MEDS: PHENobarbital SODIUM 65 MG/1 ML VIAL IVPUSH ONE (12:19)
[2025-01-03] MEDS: THIAMINE HCL 200 MG/2 ML VIAL IVPB ONE (12:43)
[2025-01-03] MEDS: POTASSIUM CHLORIDE ORAL LIQUID 20 MEQ/15 ML PO SCH (12:43)
[2025-01-03] MEDS: LORazepam 1 MG TABLET PO SCH (12:43)
[2025-01-03] MEDS ORDERED: LORazepam 2 MG/ML SDV VIAL IVPUSH PRN (12:45)
[2025-01-03] MEDS: PANTOPRAZOLE SODIUM 40 MG VIAL IVPUSH SCH (12:55)
[2025-01-03] MEDS: PHENobarbital SODIUM 65 MG/1 ML VIAL IVPUSH SCH (13:12)
[2025-01-03] MEDS: INSULIN ASPART SLIDING SCALE (NOVOLOG) 1 VIAL SQ SCH ×2 (14:12→15:18)
[2025-01-03] MEDS: THIAMINE HCL 200 MG/2 ML VIAL IVPB SCH (14:14)
[2025-01-03] MEDS: KCL 10 MEQ IVPB 10 MEQ/100 ML INFUS.BAG IVPB SCH (15:07)
[2025-01-04] MEDS ORDERED: LORazepam 1 MG TABLET PO SCH (05:00)
[2025-01-04 09:15] LABS: BASO % 0.5 % (0-2.0); EOS % 1.6 % (0-4.5); HEMATOCRIT 43.9 % (35.4-49); HEMOGLOBIN 14.6 GM/dL (11.7-16.9); LYMPH % 28.8 % (8-40); MCH 29.9 pg (25.7-33.7); MCHC 33.3 g/dl (32.0-35.9); MEAN CELL VOLUME 89.9 fl (80-96); MEAN PLT VOLUME 6.9 fl (7.5-11.1); MONO % 10.8 % (3.8-10.2); NEUT % 58.3 % (42.8-82.8); PLATELET COUNT 96 10^3/uL (134-434); RBC 4.89 M/mm3 (4.00-5.60); RDW 15.5 % (11.9-15.9); WHITE BLOOD COUNT 4.6 K/mm3 (4.0-10.0)
[2025-01-04 09:38] LABS: POTASSIUM 3.5 mmol/L (3.5-5.1)
[2025-01-04 09:40] LABS: CALCIUM 8.8 mg/dL (8.5-10.1)
[2025-01-04 09:41] LABS: ALBUMIN 3.2 g/dl (3.4-5.0); BLOOD UREA NITROGEN 13.6 mg/dL (7-18)
[2025-01-04 09:44] LABS: CREATININE 0.6 mg/dL (0.55-1.3)
[2025-01-04 09:46] LABS: BILIRUBIN,TOTAL 1.3 mg/dL (0.2-1); TOT PROT 6.5 g/dl (6.4-8.2)
[2025-01-04] MEDS: POTASSIUM CHLORIDE ORAL LIQUID 20 MEQ/15 ML PO ONE (11:02)
[2025-01-04] MEDS: ATORVASTATIN CA 40 MG TABLET (FP) PO SCH (22:08)
[2025-01-05] MEDS ORDERED: LORazepam 0.5 MG TABLET PO PRN
[2025-01-05] MEDS ORDERED: LORazepam 0.5 MG TABLET PO SCH (05:00)
[2025-01-05] MEDS: D5-1/2NS+20 MEQ KCL - 20 MEQ/1,000 ML INFUS.BAG IV SCH (08:51)
[2025-01-05 08:54] LABS: BASO % 1.1 % (0-2.0); EOS % 2.8 % (0-4.5); HEMATOCRIT 41.4 % (35.4-49); HEMOGLOBIN 14.4 GM/dL (11.7-16.9); MCH 31.2 pg (25.7-33.7); MCHC 34.8 g/dl (32.0-35.9); MEAN CELL VOLUME 89.5 fl (80-96); MEAN PLT VOLUME 6.9 fl (7.5-11.1); MONO % 13.5 % (3.8-10.2); NEUT % 47.6 % (42.8-82.8); PLATELET COUNT 124 10^3/uL (134-434); RBC 4.62 M/mm3 (4.00-5.60); RDW 15.7 % (11.9-15.9); WHITE BLOOD COUNT 4.4 K/mm3 (4.0-10.0)
[2025-01-05 09:11] LABS: POTASSIUM 4.1 mmol/L (3.5-5.1)
[2025-01-05 09:14] LABS: BLOOD UREA NITROGEN 17.8 mg/dL (7-18); MAGNESIUM 1.8 mg/dL (1.8-2.4)
[2025-01-05 09:15] LABS: ALBUMIN 3.3 g/dl (3.4-5.0)
[2025-01-05 09:18] LABS: CREATININE 0.8 mg/dL (0.55-1.3)
[2025-01-05 09:19] LABS: BILIRUBIN,TOTAL 0.9 mg/dL (0.2-1); TOT PROT 6.5 g/dl (6.4-8.2)
[2025-01-05] MEDS: PANTOPRAZOLE 40 MG TABLET PO SCH (10:21)
[2025-01-05] MEDS: MAGNESIUM 2GM/50ML STERILE WATER IVPB IVPB ONE (10:34)
[2025-01-05] MEDS: INSULIN (LEVEMIR) 100 UNITS/ML UNITS SQ ONE (12:05)
[2025-01-05] MEDS: HEPARIN NA (PORCINE) 5,000 UNITS/ML 1ML VIAL SQ SCH (15:09)
[2025-01-05] MEDS: INSULIN ASPART SLIDING SCALE (NOVOLOG) 1 VIAL SQ SCH (18:53)
[2025-01-05] MEDS: INSULIN (LEVEMIR) 100 UNITS/ML UNITS SQ SCH (21:34)
[2025-01-06] MEDS: LORazepam 0.5 MG TABLET PO ONE (04:13)
[2025-01-06] MEDS: INSULIN ASPART SLIDING SCALE (NOVOLOG) 1 VIAL SQ SCH (06:24)
[2025-01-06] MEDS: THIAMINE HCL 200 MG/2 ML VIAL IVPB SCH (09:07)
[2025-01-06 09:45] LABS: BASO % 0.9 % (0-2.0); HEMOGLOBIN 14.8 GM/dL (11.7-16.9); LYMPH % 33.7 % (8-40); MCHC 34.5 g/dl (32.0-35.9); MEAN CELL VOLUME 89.9 fl (80-96); MEAN PLT VOLUME 6.8 fl (7.5-11.1); MONO % 16.2 % (3.8-10.2); NEUT % 47.2 % (42.8-82.8); PLATELET COUNT 167 10^3/uL (134-434); RBC 4.78 M/mm3 (4.00-5.60); RDW 15.9 % (11.9-15.9); WHITE BLOOD COUNT 4.7 K/mm3 (4.0-10.0)
[2025-01-06 09:59] LABS: POTASSIUM 5.1 mmol/L (3.5-5.1)
[2025-01-06 10:05] LABS: ALBUMIN 3.5 g/dl (3.4-5.0); CALCIUM 9.6 mg/dL (8.5-10.1)
[2025-01-06 10:06] LABS: BLOOD UREA NITROGEN 16.5 mg/dL (7-18)
[2025-01-06 10:09] LABS: CREATININE 0.8 mg/dL (0.55-1.3)
[2025-01-06 10:10] LABS: BILIRUBIN,TOTAL 0.8 mg/dL (0.2-1)
[2025-01-07] MEDS ORDERED: INSULIN ASPART SLIDING SCALE (NOVOLOG) 1 VIAL SQ ONE (18:39)
[2025-01-08 09:38] LABS: HEMATOCRIT 42.3 % (35.4-49); HEMOGLOBIN 13.9 GM/dL (11.7-16.9); MCHC 32.9 g/dl (32.0-35.9); MEAN CELL VOLUME 91.2 fl (80-96); MEAN PLT VOLUME 6.9 fl (7.5-11.1); PLATELET COUNT 255 10^3/uL (134-434); RBC 4.64 M/mm3 (4.00-5.60); RDW 15.4 % (11.9-15.9); WHITE BLOOD COUNT 4.1 K/mm3 (4.0-10.0)
[2025-01-08 09:53] LABS: POTASSIUM 4.4 mmol/L (3.5-5.1)
[2025-01-08 09:55] LABS: ALBUMIN 3.4 g/dl (3.4-5.0); BLOOD UREA NITROGEN 15.9 mg/dL (7-18); CALCIUM 8.9 mg/dL (8.5-10.1); MAGNESIUM 1.7 mg/dL (1.8-2.4)
[2025-01-08 09:59] LABS: CREATININE 0.7 mg/dL (0.55-1.3)
[2025-01-08 10:00] LABS: BILIRUBIN,TOTAL 0.6 mg/dL (0.2-1); TOT PROT 7.1 g/dl (6.4-8.2)
[2025-01-08 11:37] LABS: ANISOCYTOSIS 0; HELMET CELLS 0; HOWELL-JOLLY BODIES 0; MACROCYTOSIS 0; OVALOCYTE 0; ROULEAU 0; SICKELED CELLS 0; TARGET CELLS 0; TEAR DROP CELLS 0; TOXIC GRANULATION 0
[2025-01-08] MEDS: MAGNESIUM 2GM/50ML STERILE WATER IVPB IVPB ONE (14:32)
[2025-01-08] MEDS: INSULIN (LEVEMIR) 100 UNITS/ML UNITS SQ SCH (22:03)
[2025-01-09] MEDS ORDERED: INSULIN (LEVEMIR) 100 UNITS/ML UNITS SQ SCH (07:11)
[2025-01-09] MEDS: MAGNESIUM 2GM/50ML STERILE WATER IVPB IVPB ONE (09:37)
[2025-01-09] MEDS: INSULIN (LEVEMIR) 100 UNITS/ML UNITS SQ ONE (09:48)
[2025-01-09] MEDS: INSULIN ASPART SLIDING SCALE (NOVOLOG) 1 VIAL SQ SCH (16:31)
[2025-01-09] MEDS: INSULIN (LEVEMIR) 100 UNITS/ML UNITS SQ SCH (21:57)
[2025-01-10] MEDS ORDERED: INSULIN (LEVEMIR) 100 UNITS/ML UNITS SQ SCH (07:37)
[2025-01-10] MEDS: INSULIN (LEVEMIR) 100 UNITS/ML UNITS SQ ONE (10:16)
[2025-01-10] MEDS: INSULIN ASPART SLIDING SCALE (NOVOLOG) 1 VIAL SQ SCH (11:35)
[2025-01-10 15:35] VITALS: BP 144/81; PULSE 71; RESP 16; TEMP 98.1
== END 2025-01-10 17:14 | DRG 775 ==
LOC: JER 07:30 → JERBED 09:55 → J5S 11:17
PROVIDERS: ADMIT Internal Medicine; ATTEND Internal Medicine
DX: F10.239 Alcohol dependence with withdrawal, unspecified (principal); K70.10 Alcoholic hepatitis without ascites; I25.10 Atherosclerotic heart disease of native coronary artery without angina pectoris; K29.20 Alcoholic gastritis without bleeding; E83.42 Hypomagnesemia; E11.43 Type 2 diabetes mellitus with diabetic autonomic (poly)neuropathy; K31.84 Gastroparesis; R74.01 Elevation of levels of liver transaminase levels; N40.0 Benign prostatic hyperplasia without lower urinary tract symptoms; E78.5 Hyperlipidemia, unspecified; I10 Essential (primary) hypertension; G47.30 Sleep apnea, unspecified; I45.10 Unspecified right bundle-branch block; E87.6 Hypokalemia; R94.31 Abnormal electrocardiogram [ECG] [EKG]; E87.1 Hypo-osmolality and hyponatremia; E51.2 Wernicke's encephalopathy; Z95.5 Presence of coronary angioplasty implant and graft
CPT/HCPCS: 0241U-QW; 36415; 70450-TC; 71045-TC-FY; 76705-TC; 80048; 80053; 80076; 81003; 82105; 82550; 82553; 82607; 82728; 82962; 83036; 83516; 83540; 83550; 83690; 83735; 84100; 84484; 85025; 85610; 85730; 86038; 86140; 86803; 86850; 86900; 86901; 87086; 87186; 87340; 87517; 93005; 93010; 97116-GP; 97161-GP; 99285-25; J1644